=== PATIENT | female | born 1935 | race Caucasian/White ===

== ENCOUNTER → 2022-01-06 15:24 | Outpatient (CLI) | payer MEDICARE, SELFPAY ==
--- NOTE | ~2022-01-06 | MR_ITS ---
EXAMINATION: MR lumbar spine wo con DATE: 01/06/2022 16:45 INDICATION: Lumbar radiculopathy. Low back pain. TECHNIQUE: Magnetic resonance imaging (MRI) of the lumbar spine was performed without intravenous con trast. Sequences included sagittal T2-weighted FSE, sagittal T2-weighted FS FSE, sagittal T1-weighted FSE, and axial T2-weighted FSE. COMPARISON: None FINDINGS: There is 4 degrees dextrocurvature of lumbar spine. There is 3 mm retrolisthesis of L1 on L 2 and 5 mm retrolisthesis of L2 on L3. There is 6 mm anterolisthesis of L5 on S1. There is a chronic burst fracture of T12 with 2/5 loss of height, retropulsion of bone 3 mm into central spinal canal, a nd changes of vertebroplasty. There is a chronic burst fracture of L1 with 4/5 loss of height, retrop ulsion of bone 4 mm into central spinal canal, and focal kyphosis. There is a chronic burst fracture of L2 with 3/5 loss of height and retropulsion of bone 3 mm into central spinal canal. There is mildl y decreased disc height at T12-L1, L1-L2, and L2-L3, moderately decreased disc height at L3-L4 and L4 -L5, and severely decreased disc height at L5-S1 with endplate remodeling. The distal spinal cord sig nal intensity is normal. The conus medullaris is at L1. The following disc levels are specifically di scussed: T12-L1: The disc is bulging. There is severe bilateral facet joint osteoarthritis. There is mild left neural foraminal stenosis. There is mild central canal stenosis. L1-L2: The disc is bulging. There is severe bilateral facet joint osteoarthritis. There is moderate r ight and mild left neural foraminal stenosis. There is mild central canal stenosis. L2-L3: The disc is bulging and has an annular fissure. There is severe bilateral facet joint osteoart hritis. There is moderate bilateral neural foraminal stenosis. There is mild central canal stenosis. L3-L4: The disc is bulging. There is severe bilateral facet joint osteoarthritis. There is mild right and moderate left neural foraminal stenosis. There is moderate central canal stenosis. L4-L5: The disc is bulging. There is severe bilateral facet joint osteoarthritis. There is moderate b ilateral neural foraminal stenosis. There is mild central canal stenosis. L5-S1: The disc is bulging and has an annular fissure. There is severe bilateral facet joint osteoart hritis. There is moderate bilateral neural foraminal stenosis. There is mild central canal stenosis. IMPRESSION: 1. Severe lumbar spondylosis. Reviewed, dictated and finalized at location A.
== END ==
PROVIDERS: PCP Physician Assistant; Visit Provider Nurse Practitioner Family
DX: M47.25 Other spondylosis with radiculopathy, thoracolumbar region (principal); M48.05 Spinal stenosis, thoracolumbar region; M47.27 Other spondylosis with radiculopathy, lumbosacral region; M48.07 Spinal stenosis, lumbosacral region
CPT/HCPCS: 72148

== ENCOUNTER 2022-03-03 13:34 | Inpatient (IN) | payer MEDICARE, SELFPAY ==
[2022-03-03] VITALS (8 sets, daily range): BP systolic 80–121; BP diastolic 50–73; PULSE 55–65; RESP 15–21; TEMP 36.4–36.6; O2SAT 98–100; BMI 32.2
--- NOTE | ~2022-03-03 | CT_ITS ---
EXAMINATION: CT diagnostic chest w con DATE: 03/03/2022 15:18 INDICATION: Worsening pneumonia. Right rib pain. TECHNIQUE: Computed tomography (CT) of the chest was performed with 75 cc Omnipaque 350 intravenous c ontrast. The dose-length product was 266.21 mGy-cm. Automated exposure control and iterative reconstr uction technique were employed. COMPARISON: No prior studies for comparison. FINDINGS: No large central pulmonary embolism. There is atherosclerosis of the aorta and coronary art eries. Large hiatal hernia. Small right pleural effusion. No thoracic lymphadenopathy. There is emphy sema. There are patchy bilateral groundglass opacities with more focal consolidation in the lower lob es which may represent pneumonia and/or atelectasis. There is debris in the left lower lobe bronchi. Centrally obstructing mass is not excluded. There are compression fractures at the thoracolumbar junc tion, likely chronic, the inferior most fracture contains vertebroplasty changes. Moderate-severe tho racic spondylosis. IMPRESSION: 1. Patchy groundglass opacities bilaterally with more focal consolidation in the lower lobes which ma y represent pneumonia and/or atelectasis. Debris present in the left lower lobe bronchus. Cannot excl ude centrally obstructing mass. 2: Small right pleural effusion. Reviewed, dictated and finalized at location B. SHAPER IMPRESSION: 1. Patchy groundglass opacities bilaterally with more focal consolidation in th e lower lobes which may represent pneumonia and/or atelectasis. Debris present in the left lower lobe bronchus. Cannot exclude centrally obstructing mass. 2: Small right pleural effusion.
--- NOTE | ~2022-03-03 | XR_ITS ---
EXAMINATION: XR ribs RT 2V DATE: 03/04/2022 11:33 INDICATION: Right lower lateral rib pain. Fall. TECHNIQUE: 2 views of the right ribs on 4 radiographs were obtained. COMPARISON: Chest CT 03/03/2022 FINDINGS: There is a small right pleural effusion. There is mild atelectasis at right lung base. Ther e are lucencies in the lungs, consistent with emphysema. There are changes of posterior fusion proced ure in cervical spine. There are changes of vertebroplasty at T12. Surgical clips in the right upper quadrant are likely from cholecystectomy. There are multiple old healed anterior right rib fracture d eformities. IMPRESSION: 1. No acute right rib fracture. 2. Stable small right pleural effusion. Reviewed, dictated and finalized at location A. RAL SERVICE MANAGER
--- NOTE | ~2022-03-03 | XR_ITS ---
EXAM: XR shoulder RT 1V DATE: 03/08/2022 16:43 HISTORY: shoulder pain. FELL ON HER R.SHOULDER A WEEK AGO . COMPARISON: X-ray right ribs 03/04/2022, CT chest 03/03/2022. FINDINGS: Exam limited by portable technique, positioning, and the lack of orthogonal views. Osteope mirella. Left lower lung opacities. Small left effusion. There are degenerative changes in the shoulder. Irregularity of the glenoid, which could represent fracture or artifact. Anatomic glenohumeral alignm ent is difficult to ascertain. IMPRESSION: Severely limited examination. No acute osseous injury detected in the prior studies perfo rmed on 03/03 and 03/04. If there has been additional intervening trauma, recommend complete nonporta ble radiographic examination of the shoulder if the patient is able to complete self-examination. Reviewed, dictated and finalized at [facility] K. RIFUGAL SEPARATOR IMPRESSION: Severely limited examination. No acute osseous injury detected in t he prior studies performed on 03/03 and 03/04. If there has been additional int ervening trauma, recommend complete nonportable radiographic examination of the shoulder if the patient is able to complete self-examination.
[2022-03-03 14:30] LABS: Basophils Percent Auto 0.3 % (0.2-1.2); Eosinophils Absolute Auto 0.2 K/mm3 (0-0.3); Eosinophils Percent Auto 1.9 % (0-4.4); Hemoglobin 8.8 g/dL (12.0-15.0); Immature Granulocyte Absolute 0.05 K/mm3 (0.00-0.031); Immature Granulocyte Percent A 0.5 % (0-0.5); Lymphocytes Absolute Auto 1.51 K/mm3 (0.9-3.2); Lymphocytes Percent Auto 15.4 % (18.3-44.2); Mean Corpuscular HGB Conc 28.4 g/dl (32-36); Mean Corpuscular Hemoglobin 25.2 pg (26-34); Mean Corpuscular Volume 88.8 fl (80-100); Mean Platelet Volume 9.5 fl (7.4-10.4); Monocytes Absolute Auto 0.8 K/mm3 (0.1-0.6); Monocytes Percent Auto 8.4 % (2.6-8.5); Neutrophils Absolute Auto 7.2 K/mm3 (1.3-6.7); Neutrophils Percent Auto 73.5 % (45.5-73.1); Platelet Count Result 175 k/mm3 (150-375); Red Blood Count 3.49 M/mm3 (4.2-5.4); Red Cell Distribution Width 14.6 % (11.5-14.5); White Blood Count 9.8 K/mm3 (4.5-10.0)
[2022-03-03 14:45] LABS: Prothrombin Time 13.2 Seconds (11.1-14.7)
[2022-03-03 14:46] LABS: Partial Thromboplastin Time 29.7 SECONDS (22.3-36.8)
[2022-03-03 14:58] LABS: Alanine Aminotransferase 18 U/L (6-35); Albumin Level 3.3 g/dL (3.5-5.1); Alkaline Phosphatase 82 U/L (38-126); Aspartate Amino Transferase 30 U/L (14-36); Bilirubin,Total 0.4 mg/dL (0.2-1.3); Blood Urea Nitrogen 25 mg/dL (7-17); Calcium 8.2 mg/dL (8.4-10.2); Carbon Dioxide > 40 mmol/L (22-30); Chloride 89 mmol/L (98-107); Estimated Glomerular Filt Rate > 60; Glucose 95 mg/dL (65-110); Potassium 3.1 mmol/L (3.4-5.0); Sodium 140 mmol/L (137-145)
[2022-03-03 14:59] LABS: Hypochromasia 1+ (NORMAL); Platelet Estimate Adequate (Adequate); Schistocytes None Seen (NORMAL)
[2022-03-03 15:04] LABS: Influenza A QL RT-PCR Negative (Negative); Influenza B QL RT-PCR Negative (Negative); SARS-CoV-2 RNA PCR Negative
[2022-03-03 15:06] LABS: NT Pro B Type Natriuretic Pept 891 pg/mL (5-100)
--- NOTE | 2022-03-03 15:47 | ED.SOB ---
HPI - SOB/Dyspnea General Chief Complaint: Shortness of Breath/Dyspnea Stated Complaint: dyspnea, recent pna Time Seen by Provider: 03/03/22 14:04 History of Present Illness HPI Narrative: 87-year-old female presenting to the emergency department for evaluation of worsening shortness of breath and right-sided rib pain. Patient reports she is normally on 2 L of oxygen at baseline but does bump up to 4 L with ambulation. Patient did have a recent pneumonia and did complete her antibiotics. Patient reports that Thursday she had a ground-level fall and injured her right ribs. Patient presents to the emergency department evaluation of pain in the right ribs and of worsening cough and shortness of breath. Patient has history of COPD and pneumonia. Related Data Home Medications Medication Instructions Recorded Confirmed amitriptyline 25 mg tablet 25 mg PO QHS 10/23/20 03/03/22 citalopram 20 mg tablet 20 mg PO DAILY 10/23/20 03/03/22 furosemide 20 mg tablet 20 mg PO QAM 10/23/20 03/03/22 oxycodone-acetaminophen 5 mg-325 1 tablet PO Q6H PRN Pain 10/23/20 03/03/22 mg tablet pantoprazole 40 mg tablet,delayed 40 mg PO QAM 10/23/20 03/03/22 release propranolol 20 mg/5 mL (4 mg/mL) 20 mg PO BID 10/23/20 03/03/22 oral solution pregabalin 100 mg capsule (Lyrica) 100 mg PO BID 03/03/22 03/03/22 Allergies Allergy/AdvReac Type Severity Reaction Status Date / Time chlorpromazine Allergy Unknown Unknown Verified 03/03/22 14:03 [From Thorazine] diphenhydramine Allergy Unknown Unknown Verified 03/03/22 14:03 [From Benadryl] rofecoxib [From Vioxx] Allergy Unknown Unknown Verified 03/03/22 14:03 Review of Systems Review of Systems: CONSTITUTIONAL: Denies fever, chills, or sweats. EYES: Denies visual changes, redness, or discharge. ENT: Denies rhinorrhea, congestion, sore throat, or otalgia. CARDIOVASCULAR: Denies chest pain, palpitations, or edema. RESPIRATORY: Cough and congestion GASTROINTESTINAL: Denies abdominal pain, nausea, vomiting, or diarrhea. GENITOURINARY: Denies dysuria or hematuria. SKIN: Denies rash or itching. MUSCULOSKELETAL: Right-sided rib pain NEUROLOGIC: Denies headache, numbness, or weakness. [facility]LY [facility] Past Medical History Medical History (Updated 03/03/22 @ 22:05 by Flaquita Haider NP) Acute exacerbation of chronic obstructive airways disease Chronic GERD COPD (chronic obstructive pulmonary disease) Depression with anxiety Hiatal hernia Surgical History Surgical History (Updated 03/03/22 @ 18:38 by Flaquita Haider NP) H/O bladder repair surgery H/O breast surgery H/O colonoscopy H/O esophagogastroduodenoscopy H/O foot surgery H/O hernia repair H/O Spinal surgery H/O wrist surgery H/O: hysterectomy Hx of cataract extraction Hx of cholecystectomy S/P cervical spinal fusion S/P tonsillectomy Family History Family History Father Bladder cancer Mother Hypertension Depression Sibling Asthma Hypertension Depression Grandparent Hypertension Heart disease Cerebrovascular accident Grandparent Alcoholism Lung cancer Social History Social History (Updated 03/03/22 @ 21:54 by Flaquita Haider NP) Social History: The patient is and has 3 children. 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 She tells me she was a former smoker. She chronically wears oxygen at home. She does not have a durable power finance attorney for healthcare. She has an alcoholic beverage approximately 4 times per week. Code status full code Smoking status: Former smoker Alcohol intake: current Substance use: never Substance use type: does not use Exam Narrative: APPEARANCE: Well appearing, no pain, no distress, well-nourished. HEAD: normocephalic, atraumatic. EYES: PERRLA/EOMI, conjunctivae clear. NOSE: Normal no drainage THROAT: Pharynx clear, no exudate. NECK: Supple. No adenopathy, no masses. RESPI
--- NOTE | 2022-03-03 16:00 | PCRCNOTE ---
PT. REFUSED ABG; DR. HERRMANN NOTIFIED.
[2022-03-03] MEDS: SODIUM CHLORIDE 0.9% IV 1,000 ML 125 ML (17:27)
--- NOTE | 2022-03-03 18:29 | PM.IMHP ---
H&P: HPI History of Present Illness Date/Time: 03/03/22 18:29 Chief Complaint: Shortness of breath Narrative: This is an 87-year-old female patient who lives at home by herself. The patient stated she recently was treated for pneumonia and still continues to have a cough. She wears oxygen at 4 L per nasal cannula as she has COPD. The patient has a cough without a fever. She is complaining of right-sided rib pain every time she coughs. The patient had already completed her antibiotics for her pneumonia. The patient came to the emergency room for worsening cough and the pain to the right rib area. The patient typically goes to [facility] but decided she no longer wants to go there. She had a chest CT today that shows patchy ground-glass opacities bilaterally with more focal consolidation in the lower lobes which may represent pneumonia and/or atelectasis. Debris present in the left lower lobe bronchus. Cannot exclude centrally obstructing mass. Small right pleural effusion. Her H&H is 8.8 and 31.0. The patient was negative for influenza A/B and COVID. The patient was started on cefepime and vanco for failed outpatient pneumonia treatment the patient is being admitted to observation status on the date of service of 03/03/2022.. Review of Systems Review of Systems: See HPI All systems reviewed & are unremarkable except as noted in HPI and below Constitutional: Constitutional: Reports as per HPI and Reports no additional constitutional complaints Eyes: Eyes: Reports as per HPI and Reports no additional eye complaints ENT: Reports system reviewed and no additional complaints, except as documented and Reports Normal hearing present Cardiovascular: Cardiovascular: Reports no additional cardiovascular complaints Respiratory: Respiratory: Reports no additional respiratory complaints and Reports no additional respiratory complaints Gastrointestinal: Gastrointestinal: Reports as per HPI and Reports no additional gastrointestinal complaints Musculoskeletal: Musculoskeletal: Reports no additional musculoskeletal complaints Integumentary/Breasts: Skin/Breast: Reports system reviewed and no additional complaints, except as docu and Reports as per HPI Neurologic: Reports system reviewed and no additional complaints, except as documented, Reports as per HPI and Reports Normal hearing present Psychiatric: Psychiatric: Reports no additional psychiatric complaints and Reports as per HPI Endocrine: Endocrine: Reports no additional endocrine complaints Hematologic/Lymphatic: Hematologic/Lymphatic: Reports no additional hematologic/lymphatic complaints Allergic/Immunologic: Allergic/Immunologic: Reports no additional allergic/immunologic complaints PMFSH Past Medical History Medical History (Updated 03/03/22 @ 22:05 by Flaquita Haider NP) Acute exacerbation of chronic obstructive airways disease Chronic GERD COPD (chronic obstructive pulmonary disease) Depression with anxiety Hiatal hernia Surgical History Surgical History (Updated 03/03/22 @ 18:38 by Flaquita Haider NP) H/O bladder repair surgery H/O breast surgery H/O colonoscopy H/O esophagogastroduodenoscopy H/O foot surgery H/O hernia repair H/O Spinal surgery H/O wrist surgery H/O: hysterectomy Hx of cataract extraction Hx of cholecystectomy S/P cervical spinal fusion S/P tonsillectomy Family History Family History Father Bladder cancer Mother Hypertension Depression Sibling Asthma Hypertension Depression Grandparent Hypertension Heart disease Cerebrovascular accident Grandparent Alcoholism Lung cancer Social History Social History (Updated 03/03/22 @ 21:54 by Flaquita Haider NP) Social History: The patient is and has 3 children. 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 She tells me she was a former smoker. She chronically wears oxygen at home
--- NOTE | 2022-03-03 20:06 | ADMGEN ---
This patient, Jazmin Bullard, was admitted to [facility] Surg Room 321-01. Patient/family oriented to hospital policies and general routines including ID bracelet, bed and alarms, visiting hours, pain management, procedures, bathroom and other care routines, personal items, smoking policy, room service/diet, and visiting hours. Information on how to activate the Rapid Response Team has been discussed. Patient/Family are encouraged to report perceived risks to care and to ask questions if they do not understand what they are told or what they should do.
[2022-03-03 21:00] LABS: Anion Gap 11 mmol/L (8-16); Blood Urea Nitrogen 23 mg/dL (7-17); Calcium 8.4 mg/dL (8.4-10.2); Carbon Dioxide 34 mmol/L (22-30); Chloride 94 mmol/L (98-107); Estimated Glomerular Filt Rate > 60; Glucose 95 mg/dL (65-110); Potassium 3.5 mmol/L (3.4-5.0); Sodium 139 mmol/L (137-145)
[2022-03-03] MEDS: MORPHINE SULFATE (*CRX) 4 MG/ML INJ 2 MG IV PUSH (23:47)
[2022-03-04] VITALS (9 sets, daily range): BP systolic 112–155; BP diastolic 59–136; PULSE 63–74; RESP 18–22; TEMP 36.1–36.7; O2SAT 97–100
[2022-03-04] MEDS: PANTOPRAZOLE SODIUM IV 40 MG VIAL IV PUSH (00:09)
[2022-03-04] MEDS: IPRATROPIUM BR 0.02% INH SOLN 0.5 MG/2.5 ML VIAL INHALATION ×3 (01:46→21:06)
[2022-03-04] MEDS: ALBUTEROL SULFATE NEB 2.5 MG/3 ML INH INHALATION ×3 (01:47→21:06)
[2022-03-04 06:22] LABS: Basophils Percent Auto 0.3 % (0.2-1.2); Eosinophils Absolute Auto 0.2 K/mm3 (0-0.3); Eosinophils Percent Auto 2.9 % (0-4.4); Hematocrit 28.5 % (37.0-47.0); Hemoglobin 8.4 g/dL (12.0-15.0); Immature Granulocyte Absolute 0.05 K/mm3 (0.00-0.031); Immature Granulocyte Percent A 0.6 % (0-0.5); Lymphocytes Percent Auto 16.4 % (18.3-44.2); Mean Corpuscular HGB Conc 29.5 g/dl (32-36); Mean Corpuscular Hemoglobin 25.1 pg (26-34); Mean Corpuscular Volume 85.1 fl (80-100); Mean Platelet Volume 9.9 fl (7.4-10.4); Monocytes Absolute Auto 0.7 K/mm3 (0.1-0.6); Monocytes Percent Auto 8.6 % (2.6-8.5); Neutrophils Absolute Auto 5.6 K/mm3 (1.3-6.7); Neutrophils Percent Auto 71.2 % (45.5-73.1); Platelet Count Result 164 k/mm3 (150-375); Red Blood Count 3.35 M/mm3 (4.2-5.4); Red Cell Distribution Width 14.7 % (11.5-14.5); White Blood Count 7.9 K/mm3 (4.5-10.0)
[2022-03-04 06:35] LABS: Lactic Acid Reflex 0.9 mmol/L (0.7-2.0)
[2022-03-04 06:59] LABS: Platelet Estimate Adequate (Adequate)
[2022-03-04 07:00] LABS: Alanine Aminotransferase 18 U/L (6-35); Albumin Level 3.1 g/dL (3.5-5.1); Alkaline Phosphatase 90 U/L (38-126); Anisocytosis 1+ (NORMAL); Aspartate Amino Transferase 26 U/L (14-36); Bilirubin,Total 0.5 mg/dL (0.2-1.3); Blood Urea Nitrogen 17 mg/dL (7-17); Calcium 8.1 mg/dL (8.4-10.2); Carbon Dioxide > 40 mmol/L (22-30); Chloride 93 mmol/L (98-107); Estimated Glomerular Filt Rate > 60; Glucose 109 mg/dL (65-110); Hypochromasia 3+ (NORMAL); Magnesium 2.1 mg/dL (1.6-2.3); Potassium 3.1 mmol/L (3.4-5.0); Schistocytes None Seen (NORMAL); Sodium 137 mmol/L (137-145)
[2022-03-04 08:22] LABS: Iron 20 ug/dL (37-170)
[2022-03-04 08:31] LABS: Percent Iron Saturation 6 % (20-50)
[2022-03-04] MEDS: MEMANTINE 5 MG TABLET PO ×2 (08:54→17:14)
[2022-03-04] MEDS: CLOPIDOGREL BISULFATE 75 MG TABLET PO (08:54)
[2022-03-04] MEDS: PANTOPRAZOLE 40 MG TABLET PO (08:54)
[2022-03-04] MEDS: ENOXAPARIN 40 MG/0.4 ML SYRINGE SUB-Q (08:54)
[2022-03-04] MEDS: POTASSIUM CHLORIDE 20 MEQ PACKET (FOR LIQUID) 40 MEQ PO (08:54)
[2022-03-04] MEDS: PREGABALIN (*CRX) 50 MG CAPSULE 100 MG PO ×2 (08:55→17:14)
[2022-03-04] MEDS: PROPRANOLOL HCL 20 MG TABLET PO ×2 (08:55→17:14)
[2022-03-04] MEDS: ATORVASTATIN 40 MG TABLET 80 MG PO (08:55)
[2022-03-04] MEDS: oxyCODONE/ACETAMINOPHEN (*CRX) 5-325 MG TABLET 1 TABLET PO ×3 (08:55→21:32)
[2022-03-04] MEDS: CITALOPRAM HYDROBROMIDE 20 MG TABLET PO (08:55)
[2022-03-04] MEDS: FUROSEMIDE INJ 40 MG/4 ML VIAL IV PUSH (08:55)
--- NOTE | 2022-03-04 10:45 | PM.IMPN ---
Progress Note: A&P Assessment and Plan (1) Pneumonia: Code(s): J18.9 - Pneumonia, unspecified organism Status: Acute Assessment and Plan: -the patient failed outpatient treatment for pneumonia. -the patient is chronically on 4 L per nasal cannula. -continue with nebulizer treatments. - The patient was started on cefepime and vancomycin. -tailor antibiotics to blood and sputum cultures. -she does not known what antibiotics the patient was on outpatient shannon, but likely levaquin given it was taken only once daily. Check swallowing as she reports some dysphagia. (2) COPD (chronic obstructive pulmonary disease): Qualifiers: COPD type: unspecified COPD Qualified Code(s): J44.9 - Chronic obstructive pulmonary disease, unspecified Code(s): J44.9 - Chronic obstructive pulmonary disease, unspecified Status: Chronic Assessment and Plan: -continue with current oxygen -continue with nebulizer treatments. (3) Depression with anxiety: Code(s): F41.8 - Other specified anxiety disorders Status: Chronic Assessment and Plan: -continue with amitriptyline and Celexa went home medications are verified. (4) Chronic GERD: Code(s): K21.9 - Gastro-esophageal reflux disease without esophagitis Status: Chronic Assessment and Plan: -IV Protonix (5) Pleural effusion: Code(s): J90 - Pleural effusion, not elsewhere classified Status: Acute Assessment and Plan: IV Lasix and hold p.o. Lasix (6) Constipation: Code(s): K59.00 - Constipation, unspecified Status: Acute Assessment and Plan: bisacodyl suppository x1, then start bowel regimen. Time Spent With Patient Time with patient: 15 - 25 minutes Subjective Date/time seen: 03/04/22 10:45 She has right rib pain that is worse with movement and coughing. She denies hemoptysis. Her sputum has been green-blue and she attributes the blue tinge to drinking Dr. Pepper. She has not had a BM in 7 days. She was discharged from [facility] with three days of antibiotic that was once daily. Review of Systems Review of Systems: All systems reviewed & are unremarkable except as noted in HPI and below Objective Data Vital Signs Vital Signs: Vital Signs - 24 hr 03/03/22 13:32 03/03/22 13:51 03/03/22 14:14 Temperature 97.6 F Pulse Rate 55 L Respiratory Rate 17 Blood Pressure 80/63 L 97/68 L Pulse Oximetry 100 98 Oxygen Delivery Nasal Cannula Nasal Cannula Oxygen Flow Rate 2 2 03/03/22 14:16 03/03/22 17:37 03/03/22 19:55 Temperature 97.9 F Pulse Rate 56 L 63 65 Respiratory Rate 21 H 15 20 Blood Pressure 112/73 84/50 L 121/66 Pulse Oximetry 100 100 100 Oxygen Delivery Oxygen Flow Rate 03/03/22 21:40 03/04/22 01:51 03/04/22 02:01 Temperature 97.9 F Pulse Rate 65 63 64 Respiratory Rate 20 18 18 Blood Pressure 121/66 Pulse Oximetry 100 Oxygen Delivery Oxygen Flow Rate 03/03/22 20:30 03/04/22 06:00 03/04/22 08:55 Temperature 98.0 F Pulse Rate 64 66 66 Respiratory Rate 18 22 H Blood Pressure 112/59 L Pulse Oximetry 100 97 Oxygen Delivery Nasal Cannula Oxygen Flow Rate 3 03/04/22 08:00 Temperature Pulse Rate Respiratory Rate Blood Pressure Pulse Oximetry 97 Oxygen Delivery Nasal Cannula Oxygen Flow Rate 3 Intake/Output Intake/Output: Intake & Output 03/01/22 03/02/22 03/03/22 03/04/22 23:59 23:59 23:59 23:59 Intake Total 50 740 Balance 50 740 Meds/Results Medications: Active Medications Generic Name Dose Route Start Last Admin Trade Name Freq PRN Reason Stop Dose Admin Albuterol 2.5 mg 03/04/22 02:00 03/04/22 09:31 Albuterol Sulfate Neb 2.5 Mg/3 Ml Inh INHALATION Not Given Q6HRT MASTER Amitriptyline HCl 25 mg 03/04/22 21:00 Amitriptyline Hcl 25 Mg Tablet PO QHS MASTER Ascorbic Acid 500 mg 03/05/22 09:00 Ascorbic Acid 500 Mg Tablet PO
[2022-03-04] MEDS: LIDOCAINE 5% PATCH 1 PATCH TRANSDERM (11:48)
[2022-03-04] MEDS: BISACODYL 10 MG SUPPOSITORY RECTAL (12:30)
--- NOTE | 2022-03-04 16:36 | PCSTNOTE ---
Please refer to the Bedside Swallow Evaluation in the EMR. Please note, silent aspiration cannot be ruled out at bedside.
[2022-03-04] MEDS: SENNA/DOCUSATE SODIUM TABLET 1 TAB PO (21:33)
[2022-03-04] MEDS: AMITRIPTYLINE HCL 25 MG TABLET PO (21:33)
[2022-03-05] VITALS (18 sets, daily range): BP systolic 84–144; BP diastolic 53–92; PULSE 65–99; RESP 18–20; TEMP 36.4–37.2; O2SAT 93–100
[2022-03-05] MEDS: IPRATROPIUM BR 0.02% INH SOLN 0.5 MG/2.5 ML VIAL INHALATION ×4 (01:48→20:18)
[2022-03-05] MEDS: ALBUTEROL SULFATE NEB 2.5 MG/3 ML INH INHALATION ×4 (01:48→20:18)
[2022-03-05] MEDS: oxyCODONE/ACETAMINOPHEN (*CRX) 5-325 MG TABLET 1 TABLET PO (06:57)
[2022-03-05 07:24] LABS: Basophils Percent Auto 0.4 % (0.2-1.2); Eosinophils Absolute Auto 0.3 K/mm3 (0-0.3); Eosinophils Percent Auto 3.8 % (0-4.4); Hematocrit 31.4 % (37.0-47.0); Immature Granulocyte Absolute 0.04 K/mm3 (0.00-0.031); Immature Granulocyte Percent A 0.5 % (0-0.5); Lymphocytes Absolute Auto 1.13 K/mm3 (0.9-3.2); Lymphocytes Percent Auto 14.9 % (18.3-44.2); Mean Corpuscular HGB Conc 28.7 g/dl (32-36); Mean Corpuscular Hemoglobin 25.2 pg (26-34); Mean Platelet Volume 10.2 fl (7.4-10.4); Monocytes Absolute Auto 0.6 K/mm3 (0.1-0.6); Monocytes Percent Auto 8.1 % (2.6-8.5); Neutrophils Absolute Auto 5.5 K/mm3 (1.3-6.7); Neutrophils Percent Auto 72.3 % (45.5-73.1); Platelet Count Result 191 k/mm3 (150-375); Red Blood Count 3.57 M/mm3 (4.2-5.4); Red Cell Distribution Width 14.6 % (11.5-14.5); White Blood Count 7.6 K/mm3 (4.5-10.0)
[2022-03-05 07:29] LABS: Blood Urea Nitrogen 17 mg/dL (7-17); Calcium 8.2 mg/dL (8.4-10.2); Carbon Dioxide > 40 mmol/L (22-30); Chloride 91 mmol/L (98-107); Estimated Glomerular Filt Rate > 60; Glucose 107 mg/dL (65-110); Potassium 3.3 mmol/L (3.4-5.0); Sodium 138 mmol/L (137-145)
[2022-03-05] MEDS: CLOPIDOGREL BISULFATE 75 MG TABLET PO (09:45)
[2022-03-05] MEDS: ENOXAPARIN 40 MG/0.4 ML SYRINGE SUB-Q (09:46)
[2022-03-05] MEDS: CITALOPRAM HYDROBROMIDE 20 MG TABLET PO (09:46)
[2022-03-05] MEDS: ATORVASTATIN 40 MG TABLET 80 MG PO (09:47)
[2022-03-05] MEDS: MEMANTINE 5 MG TABLET PO ×2 (09:47→17:15)
[2022-03-05] MEDS: PREGABALIN (*CRX) 50 MG CAPSULE 100 MG PO ×2 (09:47→19:38)
[2022-03-05] MEDS: FUROSEMIDE INJ 40 MG/4 ML VIAL IV PUSH (09:47)
[2022-03-05] MEDS: ASCORBIC ACID 500 MG TABLET PO (09:47)
[2022-03-05] MEDS: FERROUS SULFATE DRIED 142 MG TABCR PO (09:47)
[2022-03-05] MEDS: PANTOPRAZOLE 40 MG TABLET PO (09:48)
--- NOTE | 2022-03-05 09:53 | PCPTNOTE ---
Attempted PT evaluation, pt refused wishing to have pain medication prior to therapy. RN in room. Will follow
[2022-03-05] MEDS: MORPHINE SULFATE (*CRX) 4 MG/ML INJ 2 MG IV PUSH (11:57)
[2022-03-05] MEDS: SODIUM CHLORIDE 0.9% IV 500 ML 999 ML IV CONT ×2 (15:02→16:25)
--- NOTE | 2022-03-05 16:11 | PM.IMPN ---
Progress Note: A&P Assessment and Plan (1) Pneumonia: Code(s): J18.9 - Pneumonia, unspecified organism Status: Acute Assessment and Plan: -the patient failed outpatient treatment for pneumonia. -the patient is chronically on 4 L per nasal cannula. -continue with nebulizer treatments. - The patient was started on cefepime and vancomycin. -blood culture no growth to date; sputum culture pending -she does not known what antibiotics the patient was on outpatient shannon, but likely Levaquin given it was taken only once daily. - speech has evaluated with patient (2) COPD (chronic obstructive pulmonary disease): Qualifiers: COPD type: unspecified COPD Qualified Code(s): J44.9 - Chronic obstructive pulmonary disease, unspecified Code(s): J44.9 - Chronic obstructive pulmonary disease, unspecified Status: Chronic Assessment and Plan: -continue with current oxygen -continue with nebulizer treatments. (3) Depression with anxiety: Code(s): F41.8 - Other specified anxiety disorders Status: Chronic Assessment and Plan: -continue with amitriptyline and Celexa went home medications are verified. (4) Chronic GERD: Code(s): K21.9 - Gastro-esophageal reflux disease without esophagitis Status: Chronic Assessment and Plan: -IV Protonix (5) Pleural effusion: Code(s): J90 - Pleural effusion, not elsewhere classified Status: Acute Assessment and Plan: discontinue IV Lasix (6) Constipation: Code(s): K59.00 - Constipation, unspecified Status: Acute Assessment and Plan: bisacodyl suppository x1, then start bowel regimen. (7) Hypotension: Code(s): I95.9 - Hypotension, unspecified Status: Acute Assessment and Plan: blood pressure of 88/66 patient given 500 mL of normal saline and Lasix discontinued. Repeat blood pressure was 90 over 62. Repeat of 50 mL of normal saline. Time Spent With Patient Time with patient: Greater than 35 minutes Subjective Date/time seen: 03/05/22 16:11 Interval history: 87-year-old female with a history of COPD, chronic GERD, and hiatal hernia. Patient presented to the ER on 03/03/2022 due to a fall and cough. Patient states she has side pain associated with the fall but pain is worsened with a cough. Chest x-ray and chest CT revealed bilateral opacities consistent with pneumonia versus atelectasis and small right pleural effusion; no evidence of rib fractures. patient resting comfortably in bed on exam. Patient denies fever, chest pain, nausea, vomiting, diarrhea, lower extremity swelling, and sputum production today. patient states that she has shortness of breath, a cough, and constipation. Review of Systems Review of Systems: All systems reviewed & are unremarkable except as noted in HPI and below Exam Narrative: GENERAL: Comfortable, no acute distress HENMT: moist mucous membranes EYES: EOM intact b/l NECK: no lymphadenopathy RESPIRATORY: distant breath sounds, raspy but cleared up once patient coughed CARDIO: RRR GI: soft, nontender, bowel sounds present SKIN: no rashes, bruising on the right lateral back with point tenderness EXTREMITIES: no edema, redness or tenderness Objective Data Vital Signs Vital Signs: Vital Signs - 24 hr 03/04/22 21:10 03/04/22 21:10 03/04/22 21:35 Temperature 98.0 F Pulse Rate 64 64 68 Respiratory Rate 18 18 20 Blood Pressure 122/81 Pulse Oximetry 100 99 Oxygen Delivery Nasal Cannula Oxygen Flow Rate 3 03/04/22 20:30 03/05/22 01:49 03/05/22 02:08 Temperature Pulse Rate 68 66 68 Respiratory Rate 20 20 20 Blood Pressure Pulse Oximetry 99 Oxygen Delivery Nasal Cannula Oxygen Flow Rate 3 03/05/22 06:00 03/05/22 08:18 03/05/22 08:21 Temperature 97.9 F Pulse Rate 71 69 69 Respiratory Rate 20 20 20 Blood Pressure 144/85 H Pulse Oximetry 95 93 Oxygen Delivery Carlos
[2022-03-05] MEDS: SENNA/DOCUSATE SODIUM TABLET 1 TAB PO (21:40)
[2022-03-05] MEDS: AMITRIPTYLINE HCL 25 MG TABLET PO (21:42)
[2022-03-05] MEDS: oxyCODONE HCL (*CRX) 2.5 MG TAB IR PO (23:18)
[2022-03-06] VITALS (11 sets, daily range): BP systolic 85–123; BP diastolic 66–78; PULSE 78–115; RESP 16–22; TEMP 36.2–36.6; O2SAT 91–96
[2022-03-06] MEDS: IPRATROPIUM BR 0.02% INH SOLN 0.5 MG/2.5 ML VIAL INHALATION ×4 (02:47→20:11)
[2022-03-06] MEDS: ALBUTEROL SULFATE NEB 2.5 MG/3 ML INH INHALATION ×4 (02:47→20:11)
[2022-03-06 06:04] LABS: Anion Gap 7 mmol/L (8-16); Blood Urea Nitrogen 15 mg/dL (7-17); Carbon Dioxide 36 mmol/L (22-30); Chloride 93 mmol/L (98-107); Estimated Glomerular Filt Rate 53; Glucose 110 mg/dL (65-110); Potassium 3.1 mmol/L (3.4-5.0); Sodium 136 mmol/L (137-145)
[2022-03-06 06:05] LABS: Basophils Percent Auto 0.3 % (0.2-1.2); Eosinophils Absolute Auto 0.2 K/mm3 (0-0.3); Eosinophils Percent Auto 3.5 % (0-4.4); Hematocrit 29.2 % (37.0-47.0); Hemoglobin 8.6 g/dL (12.0-15.0); Immature Granulocyte Absolute 0.03 K/mm3 (0.00-0.031); Immature Granulocyte Percent A 0.4 % (0-0.5); Lymphocytes Absolute Auto 1.14 K/mm3 (0.9-3.2); Lymphocytes Percent Auto 16.7 % (18.3-44.2); Mean Corpuscular HGB Conc 29.5 g/dl (32-36); Mean Corpuscular Hemoglobin 25.2 pg (26-34); Mean Corpuscular Volume 85.6 fl (80-100); Mean Platelet Volume 9.9 fl (7.4-10.4); Monocytes Absolute Auto 0.6 K/mm3 (0.1-0.6); Monocytes Percent Auto 9.1 % (2.6-8.5); Neutrophils Absolute Auto 4.8 K/mm3 (1.3-6.7); Platelet Count Result 181 k/mm3 (150-375); Red Blood Count 3.41 M/mm3 (4.2-5.4); Red Cell Distribution Width 14.8 % (11.5-14.5); White Blood Count 6.8 K/mm3 (4.5-10.0)
[2022-03-06] MEDS: PREGABALIN (*CRX) 50 MG CAPSULE 100 MG PO ×2 (08:07→17:23)
[2022-03-06] MEDS: FERROUS SULFATE DRIED 142 MG TABCR PO (08:08)
[2022-03-06] MEDS: CITALOPRAM HYDROBROMIDE 20 MG TABLET PO (08:08)
[2022-03-06] MEDS: POTASSIUM CHLORIDE 20 MEQ PACKET (FOR LIQUID) 40 MEQ PO (08:08)
[2022-03-06] MEDS: ASCORBIC ACID 500 MG TABLET PO (08:08)
[2022-03-06] MEDS: PANTOPRAZOLE 40 MG TABLET PO (08:08)
[2022-03-06] MEDS: ATORVASTATIN 40 MG TABLET 80 MG PO (08:08)
[2022-03-06] MEDS: polyethylene glycoL 3350 17 GM POWD.PACK PO (08:08)
[2022-03-06] MEDS: ENOXAPARIN 40 MG/0.4 ML SYRINGE SUB-Q (08:08)
[2022-03-06] MEDS: MEMANTINE 5 MG TABLET PO ×2 (08:08→17:23)
[2022-03-06] MEDS: CLOPIDOGREL BISULFATE 75 MG TABLET PO (08:09)
[2022-03-06] MEDS: LIDOCAINE 5% PATCH 1 PATCH TRANSDERM (08:09)
[2022-03-06] MEDS: ACETAMINOPHEN 325 MG TABLET 650 MG PO ×2 (08:20→15:18)
--- NOTE | 2022-03-06 10:46 | PM.IMPN ---
Progress Note: A&P Assessment and Plan (1) Pneumonia: Code(s): J18.9 - Pneumonia, unspecified organism Status: Acute Assessment and Plan: -the patient failed outpatient treatment for pneumonia. -the patient is chronically on 4 L per nasal cannula. -continue with nebulizer treatments. -The patient was started on cefepime and vancomycin. -blood culture no growth to date; sputum culture pending -she does not known what antibiotics the patient was on outpatient shannon, but likely Levaquin given it was taken only once daily. -speech has evaluated with patient - shortness of breath improved (2) COPD (chronic obstructive pulmonary disease): Qualifiers: COPD type: unspecified COPD Qualified Code(s): J44.9 - Chronic obstructive pulmonary disease, unspecified Code(s): J44.9 - Chronic obstructive pulmonary disease, unspecified Status: Chronic Assessment and Plan: -continue with current oxygen -continue with nebulizer treatments. (3) Depression with anxiety: Code(s): F41.8 - Other specified anxiety disorders Status: Chronic Assessment and Plan: -continue with amitriptyline and Celexa went home medications are verified. (4) Chronic GERD: Code(s): K21.9 - Gastro-esophageal reflux disease without esophagitis Status: Chronic Assessment and Plan: pantoprazole 40 mg q.a.m. (5) Pleural effusion: Code(s): J90 - Pleural effusion, not elsewhere classified Status: Acute Assessment and Plan: discontinue IV Lasix (6) Constipation: Code(s): K59.00 - Constipation, unspecified Status: Acute Assessment and Plan: bisacodyl suppository given last night prescribed suppository p.r.n. along with MiraLax p.r.n. (7) Hypotension: Code(s): I95.9 - Hypotension, unspecified Status: Acute Assessment and Plan: Blood pressure of 88/66 patient given 500 mL of normal saline and Lasix discontinued. Repeat blood pressure was 90/62. Patient given additional 500 mL of normal saline. Repeat blood pressure was 120/80. Discontinued patient's morphine and Percocet last night due to low blood pressure And patient was given Tylenol 650 mg. This morning patient described that she was having a lot of pain all over her body along with restless legs. I have restarted patient on oxycodone 2.5 mg in addition to the 650 mg Tylenol. discussed the risks with taking opioids such as falls, low blood pressure, and drowsiness. Patient being monitored for fluid overload. She has been doing well. Time Spent With Patient Time with patient: Greater than 35 minutes Subjective Date/time seen: 03/06/22 10:46 Interval history: 87-year-old female with a history of COPD, chronic GERD, and hiatal hernia. Patient presented to the ER on 03/03/2022 due to a fall and cough. Patient states she has side pain associated with the fall but pain is worsened with a cough. Chest x-ray and chest CT revealed bilateral opacities consistent with pneumonia versus atelectasis and small right pleural effusion; no evidence of rib fractures. patient resting comfortably in bed on exam. Patient denies fever, chest pain, nausea, vomiting, diarrhea, lower extremity swelling, and sputum production today. Patient states that she is in a lot of pain, and states that the pain is everywhere. Her shortness of breath has improved although she is still experiencing a nonproductive wet cough. Review of Systems Review of Systems: All systems reviewed & are unremarkable except as noted in HPI and below Exam Narrative: GENERAL: Comfortable, no acute distress HENMT: moist mucous membranes EYES: EOM intact b/l NECK: no lymphadenopathy RESPIRATORY: mild wheezing, coarse breath sounds, lungs are markedly improved once patient coughs CARDIO: RRR GI: soft, nontender, bowel sounds present SKIN: no rashes, bruising on the right lateral back with point tender
[2022-03-06] MEDS: oxyCODONE HCL (*CRX) 2.5 MG TAB IR PO ×3 (11:26→21:47)
[2022-03-06] MEDS: BISACODYL 10 MG SUPPOSITORY RECTAL (17:24)
[2022-03-06 18:17] LABS: Vancomycin Trough 10.7 ug/mL (10.0-20.0)
[2022-03-06] MEDS: AMITRIPTYLINE HCL 25 MG TABLET PO (21:48)
[2022-03-06] MEDS: SENNA/DOCUSATE SODIUM TABLET 1 TAB PO (21:48)
[2022-03-07] VITALS (12 sets, daily range): BP systolic 106–126; BP diastolic 71–76; PULSE 78–100; RESP 14–18; TEMP 36.2–36.4; O2SAT 94–100
[2022-03-07] MEDS: IPRATROPIUM BR 0.02% INH SOLN 0.5 MG/2.5 ML VIAL INHALATION ×4 (02:56→20:18)
[2022-03-07] MEDS: ALBUTEROL SULFATE NEB 2.5 MG/3 ML INH INHALATION ×4 (02:56→20:18)
[2022-03-07] MEDS: oxyCODONE HCL (*CRX) 2.5 MG TAB IR PO ×5 (04:08→20:13)
[2022-03-07] MEDS: ACETAMINOPHEN 325 MG TABLET 650 MG PO ×5 (04:09→20:13)
[2022-03-07 06:03] LABS: Basophils Percent Auto 0.3 % (0.2-1.2); Eosinophils Absolute Auto 0.3 K/mm3 (0-0.3); Eosinophils Percent Auto 4.7 % (0-4.4); Hematocrit 28.2 % (37.0-47.0); Hemoglobin 8.4 g/dL (12.0-15.0); Immature Granulocyte Absolute 0.06 K/mm3 (0.00-0.031); Immature Granulocyte Percent A 0.9 % (0-0.5); Lymphocytes Absolute Auto 1.21 K/mm3 (0.9-3.2); Lymphocytes Percent Auto 17.7 % (18.3-44.2); Mean Corpuscular HGB Conc 29.8 g/dl (32-36); Mean Corpuscular Hemoglobin 25.6 pg (26-34); Mean Platelet Volume 9.9 fl (7.4-10.4); Monocytes Absolute Auto 0.6 K/mm3 (0.1-0.6); Monocytes Percent Auto 9.1 % (2.6-8.5); Neutrophils Absolute Auto 4.6 K/mm3 (1.3-6.7); Neutrophils Percent Auto 67.3 % (45.5-73.1); Platelet Count Result 187 k/mm3 (150-375); Red Blood Count 3.28 M/mm3 (4.2-5.4); Red Cell Distribution Width 14.8 % (11.5-14.5); White Blood Count 6.9 K/mm3 (4.5-10.0)
[2022-03-07 06:07] LABS: Anion Gap 9 mmol/L (8-16); Blood Urea Nitrogen 14 mg/dL (7-17); Calcium 8.3 mg/dL (8.4-10.2); Carbon Dioxide 35 mmol/L (22-30); Chloride 95 mmol/L (98-107); Estimated Glomerular Filt Rate > 60; Glucose 99 mg/dL (65-110); Potassium 3.9 mmol/L (3.4-5.0); Sodium 139 mmol/L (137-145)
[2022-03-07] MEDS: ATORVASTATIN 40 MG TABLET 80 MG PO (09:40)
[2022-03-07] MEDS: MEMANTINE 5 MG TABLET PO ×2 (09:40→16:15)
[2022-03-07] MEDS: FERROUS SULFATE DRIED 142 MG TABCR PO (09:40)
[2022-03-07] MEDS: CITALOPRAM HYDROBROMIDE 20 MG TABLET PO (09:40)
[2022-03-07] MEDS: ENOXAPARIN 40 MG/0.4 ML SYRINGE SUB-Q (09:40)
[2022-03-07] MEDS: PANTOPRAZOLE 40 MG TABLET PO (09:40)
[2022-03-07] MEDS: ASCORBIC ACID 500 MG TABLET PO (09:40)
[2022-03-07] MEDS: CLOPIDOGREL BISULFATE 75 MG TABLET PO (09:40)
[2022-03-07] MEDS: LIDOCAINE 5% PATCH 1 PATCH TRANSDERM (09:41)
[2022-03-07] MEDS: polyethylene glycoL 3350 17 GM POWD.PACK PO ×2 (09:41→16:14)
[2022-03-07] MEDS: PREGABALIN (*CRX) 50 MG CAPSULE 100 MG PO ×2 (09:43→16:12)
--- NOTE | 2022-03-07 11:10 | PM.IMPN ---
Progress Note: A&P Assessment and Plan (1) Pneumonia: Code(s): J18.9 - Pneumonia, unspecified organism Status: Acute Assessment and Plan: -the patient failed outpatient treatment for pneumonia. -the patient is chronically on 2-4 L per nasal cannula. -continue with nebulizer treatments. -continue cefepime and vancomycin. -blood culture no growth to date -sputum culture: TNP -speech has evaluated with patient -shortness of breath improved (2) COPD (chronic obstructive pulmonary disease): Qualifiers: COPD type: unspecified COPD Qualified Code(s): J44.9 - Chronic obstructive pulmonary disease, unspecified Code(s): J44.9 - Chronic obstructive pulmonary disease, unspecified Status: Chronic Assessment and Plan: -continue with current oxygen -continue with nebulizer treatments. (3) Depression with anxiety: Code(s): F41.8 - Other specified anxiety disorders Status: Chronic Assessment and Plan: -continue with amitriptyline and Celexa went home medications are verified. (4) Chronic GERD: Code(s): K21.9 - Gastro-esophageal reflux disease without esophagitis Status: Chronic Assessment and Plan: pantoprazole 40 mg q.a.m. (5) Pleural effusion: Code(s): J90 - Pleural effusion, not elsewhere classified Status: Acute Assessment and Plan: discontinue IV Lasix (6) Constipation: Code(s): K59.00 - Constipation, unspecified Status: Acute Assessment and Plan: Bisacodyl suppository p.r.n. along with MiraLax t.i.d. scheduled (7) Hypotension: Code(s): I95.9 - Hypotension, unspecified Status: Acute Assessment and Plan: blood pressure stable (8) Restless leg syndrome: Code(s): G25.81 - Restless legs syndrome Status: Acute Assessment and Plan: Starting patient's Mirapex. it was not originally on her home med list. Her son brought in the prescription in it has been added to her med list. Time Spent With Patient Time with patient: Greater than 35 minutes Subjective Date/time seen: 03/07/22 11:10 Interval history: 87-year-old female with a history of COPD, chronic GERD, and hiatal hernia. Patient presented to the ER on 03/03/2022 due to a fall and cough. Patient states she has side pain associated with the fall but pain is worsened with a cough. Chest x-ray and chest CT revealed bilateral opacities consistent with pneumonia versus atelectasis and small right pleural effusion; no evidence of rib fractures. patient resting comfortably in bed on exam. Patient sitting in chair when being interviewed. Patient denies fever, chest pain, nausea, vomiting, diarrhea, lower extremity swelling, and sputum production. Patient states that she is in a lot of pain, and states that the pain is everywhere. Her cough and shortness of breath has improved. Review of Systems Review of Systems: All systems reviewed & are unremarkable except as noted in HPI and below Exam Narrative: GENERAL: Comfortable, no acute distress HENMT: moist mucous membranes EYES: EOM intact b/l NECK: no lymphadenopathy RESPIRATORY: crackles in lung bases otherwise clear to auscultation CARDIO: RRR GI: soft, nontender, bowel sounds present SKIN: no rashes, bruising on the right lateral back with point tenderness EXTREMITIES: no edema, redness or tenderness Objective Data Vital Signs Vital Signs: Vital Signs - 24 hr 03/06/22 14:42 03/06/22 14:00 03/06/22 20:12 Temperature 97.2 F L Pulse Rate 78 115 H 97 Respiratory Rate 20 22 H 16 Blood Pressure 101/78 Pulse Oximetry 91 96 Oxygen Delivery Nasal Cannula Oxygen Flow Rate 4 03/06/22 20:12 03/06/22 20:18 03/06/22 22:00 Temperature 97.4 F L Pulse Rate 97 97 95 Respiratory Rate 16 16 16 Blood Pressure 123/67 Pulse Oximetry 95 Oxygen Delivery Oxygen Flow Rate 03/07/22 03:10 03/07/22 03:19 03/07/22 06:00 T
--- NOTE | 2022-03-07 12:41 | PCSTNOTE ---
Speech Therapist spoke with patient who remains happy with diet consistency, much easier to eat but stated the food has no flavor. She reports she is following swallowing guidelines and has had no difficulty swallowing in the past few days.
[2022-03-07] MEDS: SENNA/DOCUSATE SODIUM TABLET 1 TAB PO (20:13)
[2022-03-07] MEDS: PRAMIPEXOLE 0.5 MG TABLET PO (20:14)
[2022-03-07] MEDS: AMITRIPTYLINE HCL 25 MG TABLET PO (20:14)
[2022-03-08] VITALS (11 sets, daily range): BP systolic 96–111; BP diastolic 65–70; PULSE 77–89; RESP 17–20; TEMP 35.9–36.2; O2SAT 95–99
[2022-03-08] MEDS: oxyCODONE HCL (*CRX) 2.5 MG TAB IR PO ×6 (00:56→20:27)
[2022-03-08] MEDS: ACETAMINOPHEN 325 MG TABLET 650 MG PO ×6 (00:56→20:27)
[2022-03-08] MEDS: IPRATROPIUM BR 0.02% INH SOLN 0.5 MG/2.5 ML VIAL INHALATION ×4 (03:09→22:20)
[2022-03-08] MEDS: ALBUTEROL SULFATE NEB 2.5 MG/3 ML INH INHALATION ×4 (03:09→22:20)
[2022-03-08 06:25] LABS: Hematocrit 26.8 % (37.0-47.0); Hemoglobin 7.9 g/dL (12.0-15.0); Mean Corpuscular HGB Conc 29.5 g/dl (32-36); Mean Corpuscular Hemoglobin 25.4 pg (26-34); Mean Corpuscular Volume 86.2 fl (80-100); Mean Platelet Volume 9.3 fl (7.4-10.4); Platelet Count Result 183 k/mm3 (150-375); Red Blood Count 3.11 M/mm3 (4.2-5.4); Red Cell Distribution Width 14.8 % (11.5-14.5); White Blood Count 5.8 K/mm3 (4.5-10.0)
[2022-03-08 06:39] LABS: Anion Gap 6 mmol/L (8-16); Blood Urea Nitrogen 14 mg/dL (7-17); Calcium 8.2 mg/dL (8.4-10.2); Carbon Dioxide 34 mmol/L (22-30); Chloride 96 mmol/L (98-107); Estimated Glomerular Filt Rate 59; Glucose 92 mg/dL (65-110); Potassium 3.6 mmol/L (3.4-5.0); Sodium 136 mmol/L (137-145)
[2022-03-08] MEDS: PREGABALIN (*CRX) 50 MG CAPSULE 100 MG PO ×2 (08:14→16:15)
[2022-03-08] MEDS: polyethylene glycoL 3350 17 GM POWD.PACK PO ×3 (08:14→16:15)
[2022-03-08] MEDS: LIDOCAINE 5% PATCH 1 PATCH TRANSDERM (08:15)
[2022-03-08] MEDS: ASCORBIC ACID 500 MG TABLET PO (08:15)
[2022-03-08] MEDS: MEMANTINE 5 MG TABLET PO ×2 (08:15→16:16)
[2022-03-08] MEDS: FERROUS SULFATE DRIED 142 MG TABCR PO ×2 (08:16→16:16)
[2022-03-08] MEDS: CLOPIDOGREL BISULFATE 75 MG TABLET PO (08:16)
[2022-03-08] MEDS: ATORVASTATIN 40 MG TABLET 80 MG PO (08:16)
[2022-03-08] MEDS: PANTOPRAZOLE 40 MG TABLET PO (08:16)
[2022-03-08] MEDS: CITALOPRAM HYDROBROMIDE 20 MG TABLET PO (08:16)
[2022-03-08] MEDS: ENOXAPARIN 40 MG/0.4 ML SYRINGE SUB-Q (08:16)
[2022-03-08 08:49] LABS: Troponin I < 0.012 ng/mL (0.000-0.034)
--- NOTE | 2022-03-08 14:03 | PM.IMPN ---
Progress Note: A&P Assessment and Plan (1) Pneumonia: Code(s): J18.9 - Pneumonia, unspecified organism Status: Acute Assessment and Plan: -the patient is chronically on 2-4 L per nasal cannula. -continue with nebulizer treatments. -continue cefepime and vancomycin. -blood culture no growth to date -sputum culture: TNP -speech has evaluated the patient -shortness of breath improved -discussed discharge tomorrow (2) COPD (chronic obstructive pulmonary disease): Qualifiers: COPD type: unspecified COPD Qualified Code(s): J44.9 - Chronic obstructive pulmonary disease, unspecified Code(s): J44.9 - Chronic obstructive pulmonary disease, unspecified Status: Chronic Assessment and Plan: -continue with current oxygen -continue with nebulizer treatments. (3) Depression with anxiety: Code(s): F41.8 - Other specified anxiety disorders Status: Chronic Assessment and Plan: -continue with amitriptyline and Celexa went home medications are verified. (4) Chronic GERD: Code(s): K21.9 - Gastro-esophageal reflux disease without esophagitis Status: Chronic Assessment and Plan: pantoprazole 40 mg q.a.m. (5) Pleural effusion: Code(s): J90 - Pleural effusion, not elsewhere classified Status: Acute Assessment and Plan: discontinue IV Lasix (6) Constipation: Code(s): K59.00 - Constipation, unspecified Status: Acute Assessment and Plan: Bisacodyl suppository p.r.n. along with MiraLax t.i.d. scheduled (7) Hypotension: Code(s): I95.9 - Hypotension, unspecified Status: Acute Assessment and Plan: blood pressure stable (8) Restless leg syndrome: Code(s): G25.81 - Restless legs syndrome Status: Acute Assessment and Plan: Starting patient's Mirapex. it was not originally on her home med list. Her son brought in the prescription in it has been added to her med list. (9) Fall: Code(s): W19.XXXA - Unspecified fall, initial encounter Status: Acute Assessment and Plan: Patient had a fall at home resulting in a bruise on her right lateral back. Patient still having pain that is worsened with her cough. Patient using lidocaine patch this states that does not help. (10) Chest pain: Code(s): R07.9 - Chest pain, unspecified Status: Acute Assessment and Plan: patient describes having intermittent chest pain in describes as a squeezing pain stat EKG and troponins ordered both came back normal Time Spent With Patient Time with patient: Greater than 35 minutes Subjective Date/time seen: 03/08/22 14:03 Interval history: Patient is resting in bed while being interviewed. Patient states that she is still having pain in a on her right lateral back. States that she has begun to have shoulder pain and chest tightness intermittently. She denies fever, shortness of breath, N/V, diarrhea, and constipation. Review of Systems Review of Systems: All systems reviewed & are unremarkable except as noted in HPI and below Exam Narrative: GENERAL: Comfortable, no acute distress HENMT: moist mucous membranes EYES: EOM intact b/l NECK: no lymphadenopathy RESPIRATORY: decreased breath sounds, crackles in the lung bases, otherwise clear to auscultation CARDIO: RRR GI: soft, nontender, bowel sounds present SKIN: no rashes, bruising on the right lateral back with point tenderness EXTREMITIES: no edema, redness or tenderness Objective Data Vital Signs Vital Signs: Vital Signs - 24 hr 03/07/22 14:58 03/07/22 15:06 03/07/22 20:21 Temperature Pulse Rate 88 80 78 Respiratory Rate 16 16 14 Blood Pressure Pulse Oximetry Oxygen Delivery Oxygen Flow Rate 03/07/22 20:00 03/07/22 22:00 03/08/22 03:11 Temperature 97.5 F L Pulse Rate 83 89 Respiratory Rate 17 17 Blood Pressure 117/72 Pulse Oximetry 100 99
[2022-03-08] MEDS: SENNA/DOCUSATE SODIUM TABLET 1 TAB PO (20:28)
[2022-03-08] MEDS: AMITRIPTYLINE HCL 25 MG TABLET PO (20:28)
[2022-03-08] MEDS: PRAMIPEXOLE 0.5 MG TABLET PO (20:29)
--- NOTE | 2022-03-09 | ECG_ITS ---
Measurements Intervals [place] Rate: 84 P: 60 ND: 157 QRS: -7 QRSD: 91 T: 0 QT: 381 QTc: 452 Interpretive Statements SINUS RHYTHM ATRIAL PREMATURE COMPLEX DELAYED PRECORDIAL R/S TRANSITION BORDERLINE T WAVE ABNORMALITY- INFERIOR LEADS BASELINE ARTIFACT- I, III, AVF BORDERLINE ECG NO PREVIOUS ECG AVAILABLE FOR COMPARISON Electronically Signed On 03-09-2022 9:16:39 INSURANCE CUSTOMER SERVICE SPECIALIST by Cristian Sanchez D.O.
[2022-03-09] MEDS: oxyCODONE HCL (*CRX) 2.5 MG TAB IR PO ×4 (00:32→13:13)
[2022-03-09] MEDS: ACETAMINOPHEN 325 MG TABLET 650 MG PO ×4 (00:33→13:13)
[2022-03-09 02:35] LABS: Vancomycin Trough 17.6 ug/mL (10.0-20.0)
[2022-03-09] MEDS: IPRATROPIUM BR 0.02% INH SOLN 0.5 MG/2.5 ML VIAL INHALATION ×2 (03:02→09:10)
[2022-03-09] MEDS: ALBUTEROL SULFATE NEB 2.5 MG/3 ML INH INHALATION ×2 (03:02→09:09)
[2022-03-09 03:04] VITALS: PULSE 78; RESP 16
[2022-03-09 06:00] VITALS: BP 94/57; PULSE 81; RESP 18; TEMP 35.9; O2SAT 100
[2022-03-09 07:16] LABS: Hematocrit 28.8 % (37.0-47.0); Hemoglobin 8.6 g/dL (12.0-15.0); Mean Corpuscular HGB Conc 29.9 g/dl (32-36); Mean Corpuscular Hemoglobin 25.7 pg (26-34); Mean Corpuscular Volume 86.2 fl (80-100); Mean Platelet Volume 9.7 fl (7.4-10.4); Platelet Count Result 209 k/mm3 (150-375); Red Blood Count 3.34 M/mm3 (4.2-5.4); Red Cell Distribution Width 15.3 % (11.5-14.5); White Blood Count 6.9 K/mm3 (4.5-10.0)
[2022-03-09 07:36] LABS: Anion Gap 6 mmol/L (8-16); Blood Urea Nitrogen 13 mg/dL (7-17); Calcium 8.1 mg/dL (8.4-10.2); Carbon Dioxide 34 mmol/L (22-30); Chloride 96 mmol/L (98-107); Estimated Glomerular Filt Rate 59; Glucose 84 mg/dL (65-110); Sodium 136 mmol/L (137-145)
[2022-03-09 08:00] VITALS: O2SAT 100
[2022-03-09] MEDS: FERROUS SULFATE DRIED 142 MG TABCR PO (08:56)
[2022-03-09] MEDS: CLOPIDOGREL BISULFATE 75 MG TABLET PO (08:56)
[2022-03-09] MEDS: ENOXAPARIN 40 MG/0.4 ML SYRINGE SUB-Q (08:56)
[2022-03-09] MEDS: ASCORBIC ACID 500 MG TABLET PO (08:56)
[2022-03-09] MEDS: CITALOPRAM HYDROBROMIDE 20 MG TABLET PO (08:56)
[2022-03-09] MEDS: ATORVASTATIN 40 MG TABLET 80 MG PO (08:56)
[2022-03-09] MEDS: polyethylene glycoL 3350 17 GM POWD.PACK PO ×2 (08:57→13:18)
[2022-03-09] MEDS: MEMANTINE 5 MG TABLET PO (08:57)
[2022-03-09] MEDS: LIDOCAINE 5% PATCH 1 PATCH TRANSDERM (08:57)
[2022-03-09] MEDS: PANTOPRAZOLE 40 MG TABLET PO (08:57)
[2022-03-09] MEDS: PREGABALIN (*CRX) 50 MG CAPSULE 100 MG PO (09:03)
--- NOTE | 2022-03-09 13:01 | PM.DS ---
DS: Admitting Diagnosis Discharge Date 03/09/2022 Admitting Diagnosis COPD exacerbation DS: Discharge Diagnosis Discharge Diagnosis (1) Pneumonia: Code(s): J18.9 - Pneumonia, unspecified organism Status: Acute (2) COPD (chronic obstructive pulmonary disease): Qualifiers: COPD type: unspecified COPD Qualified Code(s): J44.9 - Chronic obstructive pulmonary disease, unspecified Code(s): J44.9 - Chronic obstructive pulmonary disease, unspecified Status: Chronic (3) Depression with anxiety: Code(s): F41.8 - Other specified anxiety disorders Status: Chronic (4) Chronic GERD: Code(s): K21.9 - Gastro-esophageal reflux disease without esophagitis Status: Chronic (5) Pleural effusion: Code(s): J90 - Pleural effusion, not elsewhere classified Status: Acute (6) Constipation: Code(s): K59.00 - Constipation, unspecified Status: Acute (7) Hypotension: Code(s): I95.9 - Hypotension, unspecified Status: Acute (8) Restless leg syndrome: Code(s): G25.81 - Restless legs syndrome Status: Acute Assessment and Plan: (9) Fall: Code(s): W19.XXXA - Unspecified fall, initial encounter Status: Acute (10) Chest pain: Code(s): R07.9 - Chest pain, unspecified Status: Acute DS: Summary Hospital Course Reason for hospitalization: COPD exacerbation Hospital Course: 87-year-old female with history of COPD presents to the ER on 03/03/2022 due to shortness of breath and right-sided rib pain. patient is on 2-4 L of oxygen at home she had been recently diagnosed with pneumonia and treated with what we presumed was Levaquin due to her saying she was on antibiotic that you take once a day. Patient had a ground level fall the day prior to ER arrival and injured her right ribs. Chest x-ray did not reveal any fractures. States that the cough next decide pain even worse. Patient had a chest CT showing ground-glass opacities bilaterally with more focal consolidation in the lower lobes which may represent pneumonia versus atelectasis. He small right pleural effusion. patient was started on cefepime and vanc due to failed outpatient pneumonia treatment and was admitted into observation. patient was on nebulizer treatments and 4 L of oxygen. Sputum cultures and blood cultures were obtained. Patient did experience some hypotension patient was given 2 boluses of 500 mL of normal saline. Morphine and Percocet was put on hold due to possible cause of hypotension. patient's propranolol was also held. Blood pressure improved. Ended up increasing patient's oxycodone to 2.5 due to patient being on 5 mg Percocet daily as maintenance pain med. blood pressure remains stable. Patient was given IV Tylenol for pain. Patient started on iron due to H&H being 9 and 31.4. On physical exam patient's lungs were initially course and had crackles and improved during her hospital stay. Patient continues to have a nonproductive wet cough but on discharge day lungs were clear to auscultation. Sputum culture results revealed TNP and blood culture results were negative. patient did mention having some chest pain during her stay. EKG and troponin were negative. On discharge patient states that her shortness of breath has improved since being admitted, her chest pain has improved, and her cough is less severe. Time Spent with Patient Time attestation: Total time spent providing and/or coordinating discharge services: Exam Narrative: GENERAL: Comfortable, no acute distress HENMT: moist mucous membranes EYES: EOM intact b/l NECK: no lymphadenopathy RESPIRATORY: Lungs clear to auscultation CARDIO: RRR GI: soft, nontender, bowel sounds present SKIN: no rashes, bruising on the right lateral back with point tenderness EXTREMITIES: no edema, redness or tenderness DS: Data Data Completed and Pending Labs on day of discharge: Lab
== END 2022-03-09 15:57 | disposition home health service (06) | DRG 190 ==
LOC: ANHED 17:09 → ANH3MEDSUR 18:57
PROVIDERS: Internal Medicine Critical Care Medicine; Nurse Practitioner; Nurse Practitioner Family; Admitting Provider Internal Medicine; Emergency Provider Emergency Medicine; PCP Physician Assistant; Visit Provider Internal Medicine
DX: J44.1 Chronic obstructive pulmonary disease with (acute) exacerbation (principal); J18.9 Pneumonia, unspecified organism; J96.10 Chronic respiratory failure, unspecified whether with hypoxia or hypercapnia; S20.221A Contusion of right back wall of thorax, initial encounter; W19.XXXA Unspecified fall, initial encounter; F41.8 Other specified anxiety disorders; G25.81 Restless legs syndrome; I95.9 Hypotension, unspecified; K21.9 Gastro-esophageal reflux disease without esophagitis; K59.00 Constipation, unspecified; R13.10 Dysphagia, unspecified; R07.81 Pleurodynia; Z20.822 Contact with and (suspected) exposure to COVID-19; Z87.891 Personal history of nicotine dependence; Z99.81 Dependence on supplemental oxygen; Z90.710 Acquired absence of both cervix and uterus; Z98.49 Cataract extraction status, unspecified eye; Z98.1 Arthrodesis status
CPT/HCPCS: 36415; 71100; 71260; 73020; 80048; 80053; 80202; 82607; 82728; 82746; 83540; 83550; 83605; 83735; 83880; 84443; 84484; 85025; 85027; 85610; 85730; 87040; 87070; 87205; 87636; 92526; 92610; 93005; 94640; 96365; 96372; 96375; 97110; 97116; 97161; 97165; 97530; 97535; 99285; A9270; C9113; G0378; J0692; J1650; J1940; J2270; J3370; J7030; Q9967

== ENCOUNTER → 2022-09-30 13:59 | Outpatient (CLI) | payer MEDICARE, SELFPAY ==
--- NOTE | ~2022-09-30 | XR_ITS ---
EXAM: XR shoulder RT min 2V DATE: 09/30/2022 14:34 HISTORY: Right shoulder pain . COMPARISON: None available. FINDINGS: Decreased mineralization. Distracted fracture at the inferior angle of the right scapula. No lytic or blastic lesion. Moderate AC joint and mild glenohumeral joint osteoarthritis. No erosion or periosteal change. Soft tissues within normal limits. IMPRESSION: Severe osteopenia. Acute/subacute fracture at the inferior angle of the right scapula. In terstitial edema/senescent change in the lungs. Reviewed, dictated and finalized at location K. IMPRESSION: Severe osteopenia. Acute/subacute fracture at the inferior angle of the right scapula. Interstitial edema/senescent change in the lungs.
== END ==
PROVIDERS: PCP Physician Assistant; Visit Provider Nurse Practitioner Family
DX: M85.811 Other specified disorders of bone density and structure, right shoulder (principal); S42.101A Fracture of unspecified part of scapula, right shoulder, initial encounter for closed fracture; M25.511 Pain in right shoulder; R91.8 Other nonspecific abnormal finding of lung field; T14.90XA Injury, unspecified, initial encounter
CPT/HCPCS: 73030

== ENCOUNTER 2022-10-01 16:41 | Inpatient (IN) | payer MEDICARE, BC, SELFPAY ==
[2022-10-01] VITALS (12 sets, daily range): BP systolic 90–132; BP diastolic 53–114; PULSE 60–103; RESP 14–20; TEMP 36.4–36.6; O2SAT 92–100; BMI 33.5
--- NOTE | ~2022-10-01 | XR_ITS ---
EXAMINATION: XR chest 2V Exam Date/Time: 10/01/2022 17:45 CDT HISTORY: weakness Comparison: X-ray RIBS 03/04/2022; CT chest 03/03/2022. RESULT: Lines, tubes, and devices: Cholecystomy clips. Vertebroplasty cement in T12. Partially visualized ce rvical fusion hardware Lungs and pleura: Segmental left basilar airspace disease. Chronic appearing subsegmental atelectasi s and scar in the right lower lobe. Bilateral costophrenic angle blunting Cardiomediastinal silhouette: Stable. Other: No acute osseous or upper abdominal finding. IMPRESSION: Segmental left basilar opacities may represent pneumonia in the appropriate clinical context. Small b ilateral effusions. Reviewed, dictated and finalized at location K. IMPRESSION: Segmental left basilar opacities may represent pneumonia in the appropriate cli nical context. Small bilateral effusions.
--- NOTE | ~2022-10-01 | CT_ITS ---
Non-contrast Head CT History: Tremors Technique: Axial non-contrast imaging of the brain was performed. Dose reduction technique was used on this scan by utilizing automated exposure control and iterative reconstruction technique. The dose -length product (DLP) was 605.33 mGy-cm. Findings: There is no evidence of intracranial hemorrhage, mass lesion, or acute infarct. Mild chron ic white matter changes are present in the white matter bilaterally. The ventricles and subarachnoid spaces are normal in size. The calvarium appears normal. The visualized paranasal sinuses and mast oid air cells are clear. Impression: Mild chronic microvascular ischemic changes, otherwise unremarkable exam. Reviewed, dictated and finalized at location M. Impression: Mild chronic microvascular ischemic changes, otherwise unremarkable exam.
--- NOTE | ~2022-10-01 | XR_ITS ---
XR clavicle RT 10/03/2022 09:53 Indication: Right clavicle fracture Procedure: 2 views right clavicle Comparison: 09/30/2022 Findings: The their are degenerative changes of the acromioclavicular and glenohumeral joint with adj acent loose body. Osteopenia. No acute fracture, subluxation or dislocation. Impression: 1: Mild polyarticular osteoarthritis of the right shoulder. 2: No acute fracture. Reviewed, dictated and finalized at location [] Impression: 1: Mild polyarticular osteoarthritis of the right shoulder. 2: No acute fracture.
--- NOTE | 2022-10-01 17:11 | ECG_ITS ---
Measurements Intervals [place] Rate: 78 P: 23 NM: 174 QRS: -1 QRSD: 93 T: 6 QT: 375 QTc: 427 Interpretive Statements SINUS RHYTHM LOW QRS VOLTAGE IN PRECORDIAL LEADS [QRS DEFLECTION < 1.0 mV IN CHEST LEADS] COMPARED TO ECG 03/09/2022 07:33:51 NO SIGNIFICANT CHANGES Electronically Signed On 10-01-2022 20:01:37 CDT by Leonor Nicole M.D.
--- NOTE | 2022-10-01 17:19 | ED.GENADULT ---
HPI - General Adult General Chief complaint: Unspecified <BERE Benitez Last Filed: 10/02/22 03:57> Stated complaint: Uncontrolled tremors when attempting to stand <BERE Benitez Last Filed: 10/02/22 03:57> Time Seen by Provider: 10/01/22 17:15 <BERE Benitez Last Filed: 10/02/22 03:57> Source: patient <BERE Benitez Last Filed: 10/02/22 03:57> Limitations: no limitations <BERE Benitez Last Filed: 10/02/22 03:57> History of Present Illness HPI narrative: Patient is an 87-year-old female who presents the ED with report of shakiness and weakness. Patient reports anytime she is tries to stand up or move around, her arms and legs bounce. She states this has been intermittent for the last 4 years, but has never been this bad. She states she has had difficulty performing ADLs today due to the bouncing. She states she feels weak and like she is going to fall. Patient did have a recent fall last week and was diagnosed with a right clavicle fracture via outpatient x-ray today. She was placed in an arm sling. Patient uses a walker for assistance with ambulation, but states the fracture has not affected her with this. Patient denies any other concerns. Denies focal weakness. Denies chest pain, difficulty breathing. She wears 4 L nasal cannula chronically, has not had to go up on this. Denies any recent illness, cough, cold symptoms, nausea, vomiting, abdominal pain, dizziness, lightheadedness, headache. <BERE Benitez Last Filed: 10/02/22 03:57> Related Data Home medications: Home Medications Medication Instructions Recorded Confirmed citalopram 20 mg tablet 20 mg PO DAILY 10/23/20 10/01/22 furosemide 20 mg tablet 20 mg PO DAILY 10/23/20 10/01/22 oxycodone-acetaminophen 5 mg-325 1 tablet PO Q6H PRN Pain (Scale 10/23/20 10/01/22 mg tablet Score 7-10) pantoprazole 40 mg tablet,delayed 40 mg PO QAM 10/23/20 10/01/22 release atorvastatin 80 mg tablet 80 mg PO DAILY 03/04/22 10/01/22 clopidogrel 75 mg tablet 75 mg PO DAILY 03/04/22 10/01/22 memantine 5 mg tablet 5 mg PO BID 03/04/22 10/01/22 pramipexole 0.5 mg tablet (Mirapex) 0.5 mg PO HS 03/07/22 10/01/22 ferrous sulfate 325 mg (65 mg 325 mg PO DAILY 10/01/22 10/01/22 iron) tablet pregabalin 100 mg capsule 100 mg PO TID 10/01/22 10/01/[address] <[address] PA-C - Last Filed: 10/02/22 03:57> Allergies/adverse reactions: Allergies Allergy/AdvReac Type Severity Reaction Status Date / Time chlorpromazine Allergy Unknown Unknown Verified 10/01/22 19:42 [From Thorazine] diphenhydramine Allergy Unknown Unknown Verified 10/01/22 19:42 [From Benadryl] rofecoxib [From Vioxx] Allergy Unknown Unknown Verified 10/01/22 19:[address] <[address] PA-C - Last Filed: 10/02/22 03:57> Review of Systems Review of Systems: CONSTITUTIONAL: Denies fever, chills, or sweats. EYES: Denies visual changes. CARDIOVASCULAR: Denies chest pain. RESPIRATORY: Denies cough or dyspnea. GASTROINTESTINAL: Denies abdominal pain, nausea, vomiting, or diarrhea. GENITOURINARY: Denies dysuria or hematuria. MUSCULOSKELETAL: See HPI. NEUROLOGIC: See HPI. <Agata Way PA-C - Last Filed: 10/02/22 03:57> All systems reviewed & are unremarkable except as noted in HPI and below <Agata Way PA-C - Last Filed: 10/02/22 03:57> PMFSH Past Medical History Medical History: Medical History Acute exacerbation of chronic obstructive airways disease Chronic GERD COPD (chronic obstructive pulmonary disease) Depression with anxiety Hiatal hernia <Agata Way PA-C - Last Filed: 10/02/22 03:57> Surgical History Surgical History: Surgical History H/O bladder repair surgery H/O breast surgery H/O colono
[2022-10-01 17:49] LABS: Basophils Percent Auto 0.2 % (0.2-1.2); Eosinophils Absolute Auto 0.1 K/mm3 (0-0.3); Hematocrit 34.1 % (37.0-47.0); Hemoglobin 10.1 g/dL (12.0-15.0); Immature Granulocyte Absolute 0.04 K/mm3 (0.00-0.031); Immature Granulocyte Percent A 0.3 % (0-0.5); Lymphocytes Absolute Auto 1.47 K/mm3 (0.9-3.2); Lymphocytes Percent Auto 11.4 % (18.3-44.2); Mean Corpuscular HGB Conc 29.6 g/dl (32-36); Mean Corpuscular Hemoglobin 26.2 pg (26-34); Mean Corpuscular Volume 88.6 fl (80-100); Monocytes Absolute Auto 0.6 K/mm3 (0.1-0.6); Monocytes Percent Auto 4.9 % (2.6-8.5); Neutrophils Absolute Auto 10.6 K/mm3 (1.3-6.7); Neutrophils Percent Auto 82.2 % (45.5-73.1); Platelet Count Result 171 k/mm3 (150-375); Red Blood Count 3.85 M/mm3 (4.2-5.4); Red Cell Distribution Width 17.3 % (11.5-14.5); White Blood Count 12.9 K/mm3 (4.5-10.0)
[2022-10-01 18:02] LABS: Platelet Estimate Adequate (Adequate)
[2022-10-01 18:03] LABS: Schistocytes None Seen (NORMAL)
[2022-10-01 18:04] LABS: Anisocytosis 2+ (NORMAL); Hypochromasia 1+ (NORMAL)
[2022-10-01 18:08] LABS: Magnesium 2.3 mg/dL (1.6-2.3)
[2022-10-01 18:10] LABS: Alanine Aminotransferase 48 U/L (6-35); Albumin Level 3.8 g/dL (3.5-5.1); Alkaline Phosphatase 108 U/L (38-126); Aspartate Amino Transferase 57 U/L (14-36); Bilirubin,Total 0.9 mg/dL (0.2-1.3); Blood Urea Nitrogen 24 mg/dL (7-17); Calcium 8.2 mg/dL (8.4-10.2); Carbon Dioxide > 40 mmol/L (22-30); Chloride 90 mmol/L (98-107); Estimated Glomerular Filt Rate 59; Glucose 104 mg/dL (65-110); Potassium 4.4 mmol/L (3.4-5.0); Sodium 138 mmol/L (137-145)
[2022-10-01 18:51] LABS: Appearance Urine Cloudy (Clear); Bacteria Urine 4+ /hpf; Bilirubin Urine Negative (Negative); Blood Urine Negative (Negative); Color Urine Yellow (Yellow); Glucose Urine UA Negative (Negative); Ketones Urine Negative (Negative); Leukocyte Esterase Ur 3+ LEU/UL (Negative); Nitrate Urine Positive (Negative); Non Pathogenic Casts 0-2; Protein Urine Negative (Negative); RBC Urine 0-2 /hpf (0-2); Specific Grav Ur 1.008 (1.001-1.035); Squamous Epithelial Cell Urine None seen /hpf (Few); WBC Urine >100 /hpf; pH Urine 6.5 (5.0-9.0)
[2022-10-01 18:54] LABS: Add Urine Microscopic? YES
[2022-10-01 19:08] LABS: Creatine Kinase 56 U/L (30-135)
[2022-10-01 19:15] LABS: NT Pro B Type Natriuretic Pept 164 pg/mL (19.9-100)
[2022-10-01 19:25] LABS: Troponin I < 0.012 ng/mL (0.000-0.034)
[2022-10-01 19:29] LABS: Base Excess ABG 15.4 mEq/l (+/-2.0); Carboxyhemoglobin 1.2 % THb (0-2.0); Fractional Inspired Oxygen 36 %; HCO3 ABG 42.9 mEq/l (22.0-26.0); Methemoglobin ABG 0.3 %THb (0-1.5); Oxygen Content ABG 13.6 %vol (16.0-22.0); Oxyhemoglobin 90.3 % THb (90.0-100.0); PO2 ABG 65.4 mmHg (80.0-100.0); PO2 FiO2 Ratio Arterial Blood 1.82 %; Reduced Hemoglobin 8.2 %THb (0-5.0); Total Hemoglobin 10.7 g/dL (12.0-18.0)
[2022-10-01 19:33] LABS: Device NASAL CANNULA; Modified Allen's Test Pass; PCO2 ABG 70.9 mmHg (35.0-45.0); Site Drawn LEFT RADIAL
[2022-10-01] MEDS: AZITHROMYCIN 500 MG/NS 250 ML 500 MG/250 ML BAG 250 MG IVPB (20:55)
[2022-10-01] MEDS: SODIUM CHLORIDE 0.9% IV 1,000 ML 999 ML IV CONT (20:56)
[2022-10-01] MEDS: IPRATROPIUM BR 0.02% INH SOLN 0.5 MG/2.5 ML VIAL 1.5 MG INHALATION (21:00)
[2022-10-01] MEDS: LEVALBUTEROL NEB 1.25 MG/3 ML 2.5 MG INHALATION (21:01)
[2022-10-01 21:40] LABS: Influenza A QL RT-PCR Negative (Negative); Influenza B QL RT-PCR Negative (Negative); SARS-CoV-2 RNA PCR Negative (Negative)
--- NOTE | 2022-10-01 22:40 | PM.IMHP ---
H&P: HPI History of Present Illness Date/Time: 10/01/22 22:40 Chief Complaint: WEAKNESS AND SOME ARM TWITCHING Narrative: PATIENT IS AN 87-YEAR-OLD FEMALE WITH PAST MEDICAL HISTORY OF COPD AND CHRONIC OXYGEN 4 L, WHO HAS BEEN FEELING WEAK WITH THE ON AND OFF ARM TWITCHING FOR A WHILE NOW. PATIENT LIVES BY HERSELF BUT HAS A CAREGIVER WHO SEES HER 22 HOURS A WEEK. SHE SAID THAT SHE HAS NOTICED THAT SOMETIMES SHE HAS SOME JERKING MOVEMENTS OF BOTH HER ARMS. SHE HAS BEEN HAVING SOME CHRONIC COUGH WITH NO INCREASED SHORTNESS OF BREATH. She denies any fever, nausea or vomiting. She said that she uses a walker at home but has had several episodes of falling. She denies any known sick contacts insists that she is fully vaccinated against COVID. No history of seizure disorder. 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 She denies any recent antibiotic use. In the ER patient had a chest x-ray which showed some lower lobe pneumonia. She also had evidence of CO2 retention with her blood gas showing CO2 of up to 70. She denies any history of BiPAP use in the past. Review of Systems Review of Systems: no fever or weight loss no vision changes, no eye discharge no throat pain, no hoarseness, no lymphadenopathy no chest pain, no palpitations Chronic coughing, no wheezing no abdominal pain, no diarrhea, no nausea, no vomiting no dysuria, no vaginal discharge no leg swelling, no edema no suicidal or homicidal ideation PMFSH Past Medical History Medical History Acute exacerbation of chronic obstructive airways disease Chronic GERD COPD (chronic obstructive pulmonary disease) Depression with anxiety Hiatal hernia Surgical History Surgical History H/O bladder repair surgery H/O breast surgery H/O colonoscopy H/O esophagogastroduodenoscopy H/O foot surgery H/O hernia repair H/O Spinal surgery H/O wrist surgery H/O: hysterectomy Hx of cataract extraction Hx of cholecystectomy S/P cervical spinal fusion S/P tonsillectomy Family History Family History Father Bladder cancer Mother Hypertension Depression Sibling Asthma Hypertension Depression Grandparent Hypertension Heart disease Cerebrovascular accident Grandparent Alcoholism Lung cancer Social History Social History Social History: The patient is and has 3 children. 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 She tells me she was a former smoker. She chronically wears oxygen at home. She does not have a durable power litigation attorney associate for healthcare. She has an alcoholic beverage approximately 4 times per week. Code status full code Smoking packs per day: 1 Smoking cigarettes per day: 20.0 Smoking status: Former smoker Tobacco type: cigarettes Second hand tobacco smoke exposure: No Alcohol intake: current Drinks per week: 1 Substance use: never Substance use type: does not use Lack of Transportation: No Lack of Food: Never True Current Housing: I Have Housing Concerned About Future Housing: No Difficulty Paying Gas/Electric Bills: No Difficulty Paying for Meds: No Currently Unemployed: No Education: Associate Degree Difficulty w/ Childcare or Family Care: No Spiritual care concerns: No Meds Home Medications and Allergies Home Medications Medication Instructions Recorded Confirmed Type amitriptyline 25 mg tablet 25 mg PO QHS 10/23/20 03/03/22 History citalopram 20 mg tablet 20 mg PO DAILY 10/23/20 03/03/22 History furosemide 20 mg tablet 20 mg PO QAM 10/23/20 03/03/22 History oxycodone-acetaminophen 5 mg-325 1 tablet PO Q6H PRN Pain 10/23/20 03/03/22 History mg tabl
--- NOTE | 2022-10-01 23:38 | PC.NURSE ---
Patient refuses bipap.
--- NOTE | 2022-10-01 23:41 | ADMGEN ---
This patient, Jazmin Bullard, was admitted to IMU Room 212-01. Patient/family oriented to hospital policies and general routines including ID bracelet, bed and alarms, visiting hours, pain management, procedures, bathroom and other care routines, personal items, smoking policy, room service/diet, and visiting hours. Information on how to activate the Rapid Response Team has been discussed. Patient/Family are encouraged to report perceived risks to care and to ask questions if they do not understand what they are told or what they should do.
[2022-10-02] VITALS (17 sets, daily range): BP systolic 96–167; BP diastolic 55–89; PULSE 68–118; RESP 10–22; TEMP 36–36.8; O2SAT 92–100
[2022-10-02 04:48] LABS: Basophils Percent Auto 0.2 % (0.2-1.2); Eosinophils Absolute Auto 0.1 K/mm3 (0-0.3); Eosinophils Percent Auto 1.3 % (0-4.4); Immature Granulocyte Absolute 0.03 K/mm3 (0.00-0.031); Immature Granulocyte Percent A 0.3 % (0-0.5); Immature Platelet Fraction Pct 4.5 % (0.9-11.2); Lymphocytes Absolute Auto 0.98 K/mm3 (0.9-3.2); Lymphocytes Percent Auto 9.5 % (18.3-44.2); Mean Corpuscular Hemoglobin 25.9 pg (26-34); Mean Corpuscular Volume 89.3 fl (80-100); Mean Platelet Volume 10.2 fl (7.4-10.4); Monocytes Absolute Auto 0.7 K/mm3 (0.1-0.6); Monocytes Percent Auto 6.4 % (2.6-8.5); Neutrophils Absolute Auto 8.5 K/mm3 (1.3-6.7); Neutrophils Percent Auto 82.3 % (45.5-73.1); Platelet Count Result 148 k/mm3 (150-375); Red Blood Count 3.47 M/mm3 (4.2-5.4); Red Cell Distribution Width 17.5 % (11.5-14.5); White Blood Count 10.3 K/mm3 (4.5-10.0)
[2022-10-02 05:17] LABS: Blood Urea Nitrogen 24 mg/dL (7-17); Calcium 7.6 mg/dL (8.4-10.2); Carbon Dioxide > 40 mmol/L (22-30); Chloride 95 mmol/L (98-107); Estimated Glomerular Filt Rate 59; Glucose 106 mg/dL (65-110); Sodium 140 mmol/L (137-145)
[2022-10-02 09:41] LABS: Alveolar/Arterial O2 Gradient 103.2 mmHg; Fractional Inspired Oxygen 36 %; HCO3 ABG 39.7 mEq/l (22.0-26.0); Oxygen Content ABG 12.9 %vol (16.0-22.0); Oxygen Saturation ABG 92.7 % (95.0-100.0); Oxyhemoglobin 92.3 % THb (90.0-100.0); PO2 ABG 70.2 mmHg (80.0-100.0); PO2 FiO2 Ratio Arterial Blood 1.95 %; Total Hemoglobin 9.9 g/dL (12.0-18.0)
[2022-10-02 09:44] LABS: Device NASAL CANNULA; Modified Allen's Test Pass; PCO2 ABG 71.8 mmHg (35.0-45.0); Site Drawn LEFT RADIAL
[2022-10-02 12:59] LABS: Vitamin D 25 Hydroxy 30.1 ng/mL
--- NOTE | 2022-10-02 13:35 | PM.IMPN ---
Progress Note: A&P Assessment and Plan (1) Pneumonia: Qualifiers: Laterality: left Lung location: lower lobe of lung Pneumonia type: due to unspecified organism Qualified Code(s): J18.9 - Pneumonia, unspecified organism Code(s): J18.9 - Pneumonia, unspecified organism Status: Acute Assessment and Plan: Continue ceftriaxone and azithromycin. -continue oxygen support to, was on 4 L at baseline, however has evidence of CO2 retention up to 70, will continue BiPAP treatment - patient counseled on continuing BiPAP since CO2 still high (2) Fracture, scapula closed: Code(s): S42.109A - Fracture of unspecified part of scapula, unspecified shoulder, initial encounter for closed fracture Status: Acute Assessment and Plan: -patient with actual bilateral shoulder pain, x-ray showing questionable acute versus subacute right scapular fracture, consistent with history of frequent falls -continue pain medications -ortho consult -PT consult -fall precautions (3) Generalized weakness: Code(s): R53.1 - Weakness Status: Acute Assessment and Plan: patient has generalized weakness. Could be secondary to arthritis in the spine. CT head was negative for any acute findings. She does have resting tremors in upper extremities which could also be from weakness. Would recommend outpatient follow-up with Neurology to rule out Parkinson's disease. At this time will continue PT and OT Subjective Date/time seen: 10/02/22 13:35 Interval history: patient reports generalized weakness, gait instability, bilateral upper extremity tremors Review of Systems Review of Systems: no fever or weight loss no vision changes, no eye discharge no throat pain, no hoarseness, no lymphadenopathy no chest pain, no palpitations Chronic coughing, no wheezing no abdominal pain, no diarrhea, no nausea, no vomiting no dysuria, no vaginal discharge no leg swelling, no edema no suicidal or homicidal ideation Exam Narrative: general- awake, alert, oriented, no distress heent- perrl, no nystagmus, no throat swelling, no dicharge chest-course breath sounds, no wheezes, rales on left lower base, no crackles heart- s1, s2, regular rate and rhythm, no gallops or murmurs abdomen- soft, bowel sounds heard, no rebound or tenderness extremities- no edema or cyanosis, arthritic changes in both hands psych- no suicidal or homicidal ideation neuro- moves all extremities, no focal neurologic deficit, mentation intact, motor function 3 x 5 in bilateral upper and lower extremities, resting tremor in upper extremities Objective Data Vital Signs Vital Signs: Vital Signs - 24 hr 10/01/22 17:16 10/01/22 19:31 10/01/22 19:32 Temperature 97.6 F Pulse Rate 80 60 Respiratory Rate 18 14 Blood Pressure 115/85 90/55 L Pulse Oximetry 100 94 94 Oxygen Delivery Nasal Cannula Oxygen Flow Rate 4 10/01/22 21:01 10/01/22 19:33 10/01/22 19:52 Temperature Pulse Rate Respiratory Rate 18 Blood Pressure Pulse Oximetry 92 94 Oxygen Delivery Oxygen Flow Rate 10/01/22 20:13 10/01/22 20:32 10/01/22 20:33 Temperature Pulse Rate 96 Respiratory Rate 14 Blood Pressure 98/53 L Pulse Oximetry 95 98 99 Oxygen Delivery Oxygen Flow Rate 10/01/22 20:45 10/01/22 22:00 10/01/22 23:36 Temperature 97.8 F Pulse Rate 103 H Respiratory Rate 20 Blood Pressure 132/114 H 132/114 H Pulse Oximetry 100 92 Oxygen Delivery Oxygen Flow Rate 10/02/22 00:00 10/02/22 00:00 10/02/22 02:00 Temperature Pulse Rate 88 89 80 Respiratory Rate Blood Pressure Pulse Oximetry 100 Oxygen Delivery Nasal Cannula Oxygen Flow Rate 4 10/02/22 03:43 10/02/22 04:00 10/02/22 04:00 Temperature 97.7 F Pulse Rate 87 78 79 Respiratory Rate 18 Blood Pressure 167/89 H Pulse Oximetry 100 100 Oxygen Delivery Nasal Cannula Oxygen Flow Rate 10/02
[2022-10-02] MEDS: ACETAMINOPHEN 325 MG TABLET 650 MG PO (14:17)
[2022-10-02] MEDS: ENOXAPARIN 40 MG/0.4 ML SYRINGE SUB-Q (15:20)
[2022-10-02] MEDS: PANTOPRAZOLE 40 MG TABLET PO (15:22)
[2022-10-02] MEDS: CITALOPRAM HYDROBROMIDE 20 MG TABLET PO (15:23)
[2022-10-02] MEDS: FERROUS SULFATE 324 MG TABLET PO (15:23)
[2022-10-02] MEDS: PREGABALIN (*CRX) 50 MG CAPSULE 100 MG PO (17:17)
[2022-10-02] MEDS: CLOPIDOGREL BISULFATE 75 MG TABLET PO (17:18)
[2022-10-02] MEDS: oxyCODONE/ACETAMINOPHEN (*CRX) 5-325 MG TABLET 1 TABLET PO ×2 (17:21→23:33)
[2022-10-02] MEDS: AZITHROMYCIN 500 MG/NS 250 ML 500 MG/250 ML BAG 250 MG IVPB (20:51)
[2022-10-02] MEDS: AMITRIPTYLINE HCL 25 MG TABLET PO (20:52)
[2022-10-02] MEDS: MEMANTINE 5 MG TABLET PO (20:53)
[2022-10-02] MEDS: ATORVASTATIN 40 MG TABLET 80 MG PO (20:53)
[2022-10-02] MEDS: PRAMIPEXOLE 0.5 MG TABLET PO (20:53)
[2022-10-02] MEDS: BISACODYL 5 MG TABLET EC PO (21:11)
[2022-10-03] VITALS (11 sets, daily range): BP systolic 106–122; BP diastolic 43–82; PULSE 63–108; RESP 16–20; TEMP 35.9–36.5; O2SAT 92–100
--- NOTE | 2022-10-03 10:20 | PM.IMPN ---
Progress Note: A&P Assessment and Plan (1) Pneumonia: Qualifiers: Laterality: left Lung location: lower lobe of lung Pneumonia type: due to unspecified organism Qualified Code(s): J18.9 - Pneumonia, unspecified organism Code(s): J18.9 - Pneumonia, unspecified organism Status: Acute Assessment and Plan: Continue ceftriaxone and azithromycin. -continue oxygen support to, was on 4 L at baseline, however has evidence of CO2 retention up to 70, will continue BiPAP treatment - patient counseled on continuing BiPAP since CO2 still high (2) Fracture, scapula closed: Code(s): S42.109A - Fracture of unspecified part of scapula, unspecified shoulder, initial encounter for closed fracture Status: Acute Assessment and Plan: -patient with actual bilateral shoulder pain, x-ray showing questionable acute versus subacute right scapular fracture, consistent with history of frequent falls -continue pain medications -ortho consult pending -PT OT consult -fall precautions (3) Generalized weakness: Code(s): R53.1 - Weakness Status: Acute Assessment and Plan: patient has generalized weakness. Could be secondary to arthritis in the spine. CT head was negative for any acute findings. She does have resting tremors in upper extremities which could also be from weakness. Would recommend outpatient follow-up with Neurology to rule out Parkinson's disease. At this time will continue PT and OT Plan patient may need placement. Pending PT and OT evaluation Subjective Date/time seen: 10/03/22 10:20 Interval history: patient feels much better today. Pain is much better Review of Systems Review of Systems: no fever or weight loss no vision changes, no eye discharge no throat pain, no hoarseness, no lymphadenopathy no chest pain, no palpitations Chronic coughing, no wheezing no abdominal pain, no diarrhea, no nausea, no vomiting no dysuria, no vaginal discharge no leg swelling, no edema no suicidal or homicidal ideation Exam Narrative: general- awake, alert, oriented, no distress heent- perrl, no nystagmus, no throat swelling, no dicharge chest-course breath sounds, no wheezes, rales on left lower base, no crackles heart- s1, s2, regular rate and rhythm, no gallops or murmurs abdomen- soft, bowel sounds heard, no rebound or tenderness extremities- no edema or cyanosis, arthritic changes in both hands psych- no suicidal or homicidal ideation neuro- moves all extremities, no focal neurologic deficit, mentation intact, motor function 3 x 5 in bilateral upper and lower extremities, resting tremor in upper extremities Objective Data Vital Signs Vital Signs: Vital Signs - 24 hr 10/02/22 12:00 10/02/22 12:00 10/02/22 12:00 Temperature 98.3 F Pulse Rate 89 86 89 Respiratory Rate 22 H 10 L Blood Pressure 109/63 Pulse Oximetry 99 99 Oxygen Delivery Nasal Cannula Oxygen Flow Rate 4 Fraction of Inspired Oxygen 10/02/22 14:00 10/02/22 15:54 10/02/22 16:00 Temperature 98.1 F Pulse Rate 92 82 87 Respiratory Rate 16 20 Blood Pressure 96/64 L Pulse Oximetry 92 94 Oxygen Delivery Nasal Cannula Oxygen Flow Rate 4 Fraction of Inspired Oxygen 10/02/22 16:00 10/02/22 18:00 10/02/22 20:00 Temperature 97.8 F Pulse Rate 88 83 81 Respiratory Rate 20 Blood Pressure 104/60 Pulse Oximetry 92 Oxygen Delivery Oxygen Flow Rate Fraction of Inspired Oxygen 10/02/22 20:00 10/02/22 20:00 10/02/22 22:00 Temperature Pulse Rate 118 H 82 Respiratory Rate Blood Pressure Pulse Oximetry 94 Oxygen Delivery Nasal Cannula Oxygen Flow Rate 4 Fraction of Inspired Oxygen 10/02/22 22:05 10/02/22 23:53 10/03/22 00:00 Temperature 96.8 F L Pulse Rate 72 69 Respiratory Rate 15 18 Blood Pressure 115/59 L Pulse Oximetry 97 100 100 Oxygen Delivery BiPAP BiPAP Oxygen Flow Rate Fraction of Inspir
[2022-10-03] MEDS: oxyCODONE/ACETAMINOPHEN (*CRX) 5-325 MG TABLET 1 TABLET PO ×2 (10:24→17:03)
[2022-10-03] MEDS: CITALOPRAM HYDROBROMIDE 20 MG TABLET PO (10:25)
[2022-10-03] MEDS: FUROSEMIDE 20 MG TABLET PO (10:25)
[2022-10-03] MEDS: FERROUS SULFATE 324 MG TABLET PO (10:25)
[2022-10-03] MEDS: CLOPIDOGREL BISULFATE 75 MG TABLET PO (10:25)
[2022-10-03] MEDS: PANTOPRAZOLE 40 MG TABLET PO (10:26)
[2022-10-03] MEDS: MEMANTINE 5 MG TABLET PO ×2 (10:34→20:13)
[2022-10-03] MEDS: ENOXAPARIN 40 MG/0.4 ML SYRINGE SUB-Q (10:35)
--- NOTE | 2022-10-03 10:45 | PM.CNOR ---
Assessment and Plan Assessment and plan (1) Right arm pain: Code(s): M79.601 - Pain in right arm Status: Chronic Assessment and Plan: 87-year-old female who has episodic right arm pain which I believe is secondary to a neurogenic cause. Prior C-spine surgery with instrumentation noted on the clavicle film. She is already in pain management for this. No further intervention needed. Discontinue sling. Although no formal follow-up has been made for this I would be happy to address recurrent concerns in the future. History of Present Illness HPI Consult date: 10/03/22 Chief complaint: Possible clavicle fracture Narrative: 87-year-old female who is admitted for exacerbation of COPD. She was told at an outside facility that she had a right clavicle fracture and has been in a sling. She said that she had been having some pain in that arm that went from her shoulder clear down to her hand. She has been in a sling. Most so that is pretty much gone. Of note is prior neck surgery and she is in pain management. Review of Systems Review of Systems: no fever or weight loss no vision changes, no eye discharge no throat pain, no hoarseness, no lymphadenopathy no chest pain, no palpitations Chronic coughing, no wheezing no abdominal pain, no diarrhea, no nausea, no vomiting no dysuria, no vaginal discharge no leg swelling, no edema no suicidal or homicidal ideation PMFSH Past Medical History Medical History Acute exacerbation of chronic obstructive airways disease Chronic GERD COPD (chronic obstructive pulmonary disease) Depression with anxiety Hiatal hernia Surgical History Surgical History H/O bladder repair surgery H/O breast surgery H/O colonoscopy H/O esophagogastroduodenoscopy H/O foot surgery H/O hernia repair H/O Spinal surgery H/O wrist surgery H/O: hysterectomy Hx of cataract extraction Hx of cholecystectomy S/P cervical spinal fusion S/P tonsillectomy Family History Family History Father Bladder cancer Mother Hypertension Depression Sibling Asthma Hypertension Depression Grandparent Hypertension Heart disease Cerebrovascular accident Grandparent Alcoholism Lung cancer Social History Social History Social History: The patient is and has 3 children. 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 She tells me she was a former smoker. She chronically wears oxygen at home. She does not have a durable power insurance attorney for healthcare. She has an alcoholic beverage approximately 4 times per week. Code status full code Smoking packs per day: 1 Smoking cigarettes per day: 20.0 Smoking status: Former smoker Second hand tobacco smoke exposure: No Alcohol intake: current Drinks per week: 4 Substance use: never Substance use type: does not use Lack of Transportation: No Lack of Food: Never True Current Housing: I Have Housing Concerned About Future Housing: No Difficulty Paying Gas/Electric Bills: No Difficulty Paying for Meds: No Currently Unemployed: No Education: Associate Degree Difficulty w/ Childcare or Family Care: No Spiritual care concerns: No Meds Home Medications and Allergies Home Medications Medication Instructions Recorded Confirmed Type amitriptyline 25 mg tablet 25 mg PO QHS 10/23/20 10/01/22 History citalopram 20 mg tablet 20 mg PO DAILY 10/23/20 10/01/22 History furosemide 20 mg tablet 20 mg PO DAILY 10/23/20 10/01/22 History oxycodone-acetaminophen 5 mg-325 1 tablet PO Q6H PRN Pain (Scale 10/23/20 10/01/22 History mg tablet Score 7-10) pantoprazole 40 mg tablet,delayed 40 mg PO QAM 10/23/20 10/01/22 History release atorvastatin 80 mg tablet 80 mg PO
[2022-10-03] MEDS: PREGABALIN (*CRX) 50 MG CAPSULE 100 MG PO ×3 (12:05→17:03)
--- NOTE | 2022-10-03 15:15 | PCOTNOTE ---
Attempted to see pt. for occupational therapy evaluation. Pt. currently changing rooms
--- NOTE | 2022-10-03 15:21 | PC.NURSE ---
This patient, Jazmin Bullard, was transferred to [[facility] ] on 10/03/22 at 1521. Personal belongings sent with patient. Report given to [Diana ]. Appropriate documentation sent with patient.
[2022-10-03] MEDS: PRAMIPEXOLE 0.5 MG TABLET PO (20:12)
[2022-10-03] MEDS: AMITRIPTYLINE HCL 25 MG TABLET PO (20:12)
[2022-10-03] MEDS: ATORVASTATIN 40 MG TABLET 80 MG PO (20:12)
[2022-10-03] MEDS: AMOXICILLIN/CLAVULANATE K 875-125 MG TAB 1 TABLET PO (20:13)
[2022-10-04] MEDS: oxyCODONE/ACETAMINOPHEN (*CRX) 5-325 MG TABLET 1 TABLET PO ×2 (03:33→09:39)
[2022-10-04 06:00] VITALS: BP 111/67; PULSE 63; RESP 20; TEMP 36.4; O2SAT 92
[2022-10-04] MEDS: PANTOPRAZOLE 40 MG TABLET PO (08:31)
[2022-10-04] MEDS: PREGABALIN (*CRX) 50 MG CAPSULE 100 MG PO ×2 (08:32→12:00)
[2022-10-04] MEDS: CLOPIDOGREL BISULFATE 75 MG TABLET PO (08:32)
[2022-10-04] MEDS: AMOXICILLIN/CLAVULANATE K 875-125 MG TAB 1 TABLET PO (08:32)
[2022-10-04] MEDS: ENOXAPARIN 40 MG/0.4 ML SYRINGE SUB-Q (08:32)
[2022-10-04] MEDS: MEMANTINE 5 MG TABLET PO (08:32)
[2022-10-04] MEDS: FUROSEMIDE 20 MG TABLET PO (08:32)
[2022-10-04] MEDS: CITALOPRAM HYDROBROMIDE 20 MG TABLET PO (08:32)
[2022-10-04] MEDS: FERROUS SULFATE 324 MG TABLET PO (08:32)
[2022-10-04 08:45] VITALS: O2SAT 92
--- NOTE | 2022-10-04 13:01 | PM.IMPN ---
Progress Note: A&P Assessment and Plan (1) Pneumonia: Qualifiers: Laterality: left Lung location: lower lobe of lung Pneumonia type: due to unspecified organism Qualified Code(s): J18.9 - Pneumonia, unspecified organism Code(s): J18.9 - Pneumonia, unspecified organism Status: Acute Assessment and Plan: Continue antibiotics through 10/08 (2) Acute hypercapnic respiratory failure: Code(s): J96.02 - Acute respiratory failure with hypercapnia Status: Acute Assessment and Plan: Continue steroids through 10/08 ABG 10/04 (3) Fracture, scapula closed: Code(s): S42.109A - Fracture of unspecified part of scapula, unspecified shoulder, initial encounter for closed fracture Status: Acute Assessment and Plan: -patient with actual bilateral shoulder pain, x-ray showing questionable acute versus subacute right scapular fracture, consistent with history of frequent falls -continue pain medications -ortho consult noted -PT OT (4) Generalized weakness: Code(s): R53.1 - Weakness Status: Acute Assessment and Plan: patient has generalized weakness. Likely due to acute illness, deconditioning, arthritis. CT head was negative for any acute findings. [facility] Discussed with patient, son, and sister at bedside Subjective Date/time seen: 10/04/22 13:01 Interval history: Feeling better. Not shaking. No fever. Appetite. Sill hearing some music occasionally. No chest pain. BHAKTA Cough nonproductive No swelling No gi/gu issues No ABNL bleeding Review of Systems Review of Systems: All systems reviewed & are unremarkable except as noted in HPI and below Exam Narrative: general- awake, alert, oriented, no distress heent- perrl, no nystagmus, no throat swelling, no dicharge chest-course breath sounds, no wheezes, L basilar crackles worse than right heart- s1, s2, regular rate and rhythm, 2/6 MAULIK RUSB abdomen- soft, bowel sounds heard, no rebound or tenderness extremities- no edema or cyanosis neuro- moves all extremities, no focal neurologic deficit, mentation intact, no tremor Objective Data Vital Signs Vital Signs: Vital Signs - 24 hr 10/03/22 16:05 10/03/22 20:00 10/03/22 22:00 Temperature 97.7 F Pulse Rate 108 H Respiratory Rate 20 Blood Pressure 122/82 Pulse Oximetry 92 92 Oxygen Delivery Nasal Cannula Nasal Cannula Oxygen Flow Rate 4 2 10/03/22 22:06 10/04/22 06:00 10/04/22 08:00 Temperature 97.6 F Pulse Rate 98 63 Respiratory Rate 20 Blood Pressure 111/67 Pulse Oximetry 94 92 Oxygen Delivery BiPAP BiPAP Oxygen Flow Rate 10/04/22 08:45 Temperature Pulse Rate Respiratory Rate Blood Pressure Pulse Oximetry 92 Oxygen Delivery Nasal Cannula Oxygen Flow Rate 4 Intake/Output Intake/Output: Intake & Output 10/01/22 10/02/22 10/03/22 10/04/22 23:59 23:59 23:59 23:59 Intake Total 50 1270 1360 632 Output Total 500 1750 Balance 50 770 -390 632 Meds/Results Medications: Active Medications Generic Name Dose Route Start Last Admin Trade Name Freq PRN Reason Stop Dose Admin Acetaminophen 650 mg 10/01/22 22:54 10/02/22 14:17 Acetaminophen 325 Mg Tablet PO 650 mg Q4H PRN Administration Mild Pain (1-3) or Fever Al Hydrox/Mg Hydrox/Simethicone 30 ml 10/01/22 22:54 Mag Hydrox/Al Hydrox/Simeth 30 Ml Udc PO QID PRN Dyspepsia Amitriptyline HCl 25 mg 10/02/22 21:00 10/03/22 20:12 Amitriptyline Hcl 25 Mg Tablet PO 25 mg QHS MASTER Administration Amoxicillin/Clavulanate Potassium 1 tablet 10/03/22 21:00 10/04/22 08:32 Amoxicillin/Clavulanate K 875-125 Mg Tab PO 10/06/22 09:01 1 tablet Q12HR MASTER Administration Atorvastatin Calcium 80 mg 10/02/22 21:00 10/03/22 20:12 Atorvastatin 40 Mg Tablet PO 80 mg HS MASTER Administration Bisacodyl 10 mg 10/03/22 09:57 Bisacodyl 5 Mg Tablet Ec PO
--- NOTE | 2022-10-04 13:30 | PM.DS ---
DS: Admitting Diagnosis Discharge Date 10/04/2022 Admitting Diagnosis Pneumonia with respiratory failure DS: Discharge Diagnosis Discharge Diagnosis (1) Pneumonia: Qualifiers: Laterality: left Lung location: lower lobe of lung Pneumonia type: due to unspecified organism Qualified Code(s): J18.9 - Pneumonia, unspecified organism Code(s): J18.9 - Pneumonia, unspecified organism Status: Acute Assessment and Plan: Continue antibiotics through 10/08 (2) Acute hypercapnic respiratory failure: Code(s): J96.02 - Acute respiratory failure with hypercapnia Status: Acute Assessment and Plan: D/c Bipap as she tolerates it poorly and continue 4L oxygen (her baseline) ABG 10/04 PCO2 60, PO2 76 on 4L (3) Generalized weakness: Code(s): R53.1 - Weakness Status: Acute Assessment and Plan: patient has generalized weakness. Likely due to acute illness, deconditioning, arthritis. CT head was negative for any acute findings. To [facility] today for ongoing PT/OT Discussed with patient, son, and sister at bedside (4) Chronic anemia: Code(s): D64.9 - Anemia, unspecified Status: Acute Assessment and Plan: Stable as of 10/02/22 Hgb 9.0 DS: Summary Hospital Course Hospital Course: Admitted 10/01/2022 with increased weakness and arm twitching. Found to have pulmonary infiltrate on chest x-ray. Treated with ceftriaxone and azithromycin. PO2 was in the 60s and pCO2 in the 70s on her chronic 4 L of oxygen by nasal cannula. BiPAP at night was added. She tolerated poorly. Said was exhausting and she would rather do without it. White count improved from 12.9-10.3 k. She was tolerating physical therapy. She was alert and oriented although she did complain some intermittent music that she heard in her years. No voices or visual hallucinations. She still required considerable assistance for all ADLs including set up for feeding but was able to feed herself. She was accepted [facility] and was transferred there by car with her son and sister. Time Spent with Patient Time attestation: Total time spent providing and/or coordinating discharge services: Exam Narrative: general- awake, alert, oriented, no distress heent- perrl, no nystagmus, no throat swelling, no dicharge chest-course breath sounds, no wheezes, L basilar crackles worse than right heart- s1, s2, regular rate and rhythm, 2/6 MAULIK RUSB abdomen- soft, bowel sounds heard, no rebound or tenderness extremities- no edema or cyanosis neuro- moves all extremities, no focal neurologic deficit, mentation intact, no tremor DS: Data Data Completed and Pending Labs on day of discharge: Preliminary micro results at discharge 10/01/22 21:38 Blood Culture - Preliminary Blood 10/01/22 21:48 Blood Culture - Preliminary Blood Discharge Plan Discharge Consulting providers: Agata Way; Ned Brannon Discharging Clinician: Pete Barron Patient Disposition: Inpatient Rehab Facility Activity: no straining and no driving Diet: heart healthy Patient Instructions: Pneumonia (DC), Urinary Tract Infection in Older Adults (DC) Stand Alone Forms: General Discharge Information Discharge Medications: New bisacodyl [Laxative (bisacodyl)] 5 mg Tablet,Delayed Release (Dr/Ec) 10 mg PO DAILY PRN (Reason: Constipation) Qty: 7 0RF acetaminophen [Mapap (acetaminophen)] 325 mg Tablet 650 mg PO Q4H PRN (Reason: Mild Pain (1-3) Or Fever) Qty: 60 0RF alum-mag hydroxide-simeth [Mag-Al Plus] 200-200-20 mg/5 mL Suspension 30 ml PO QID PRN (Reason: Dyspepsia) Qty: 355 0RF magnesium hydroxide [Milk of Magnesia] 400 mg/5 mL Suspension 30 ml PO DAILY PRN (Reason: Constipation) Qty: 355 0RF amoxicillin-pot clavulanate 875-125 mg tablet 1 tablet PO Q12H Qty: 9 0RF Continued pantoprazole 40 mg tablet,delayed release (DR/EC) 4
[2022-10-04 13:46] VITALS: BP 102/65; PULSE 76; RESP 20; TEMP 36.5; O2SAT 96
[2022-10-04 14:36] LABS: Alveolar/Arterial O2 Gradient 52.2 mmHg; Fractional Inspired Oxygen 28 %; HCO3 ABG 37.5 mEq/l (22.0-26.0); Oxygen Content ABG 14.8 %vol (16.0-22.0); Oxygen Saturation ABG 95.1 % (95.0-100.0); Oxyhemoglobin 93.8 % THb (90.0-100.0); PO2 ABG 76.6 mmHg (80.0-100.0); PO2 FiO2 Ratio Arterial Blood 2.74 %; Total Hemoglobin 11.2 g/dL (12.0-18.0); pH ABG 7.414 (7.350-7.450)
[2022-10-04 14:38] LABS: Device NASAL CANNULA; Modified Allen's Test Pass; Site Drawn LEFT RADIAL
[2022-10-10 21:18] LABS: Red Blood Cell Folate >1000 ng/mL RBC (>280)
== END 2022-10-04 14:40 | DRG 193 ==
LOC: ANHED 18:24 → ANHIMU 21:14 → ANH3MEDSUR 10-04 13:34 → ANHIMU 10-06 16:41
PROVIDERS: Emergency Medicine; Hospitalist; Admitting Provider Internal Medicine; Emergency Provider Physician Assistant; PCP Physician Assistant; Visit Provider Internal Medicine
DX: J18.9 Pneumonia, unspecified organism (principal); J96.02 Acute respiratory failure with hypercapnia; N39.0 Urinary tract infection, site not specified; J44.1 Chronic obstructive pulmonary disease with (acute) exacerbation; B96.1 Klebsiella pneumoniae [K. pneumoniae] as the cause of diseases classified elsewhere; M79.601 Pain in right arm; R53.1 Weakness; D64.9 Anemia, unspecified; F41.8 Other specified anxiety disorders; K21.9 Gastro-esophageal reflux disease without esophagitis; W19.XXXA Unspecified fall, initial encounter; Z99.81 Dependence on supplemental oxygen; Z20.822 Contact with and (suspected) exposure to COVID-19; Z90.710 Acquired absence of both cervix and uterus; Z79.02 Long term (current) use of antithrombotics/antiplatelets; Z98.49 Cataract extraction status, unspecified eye; Z90.49 Acquired absence of other specified parts of digestive tract; Z98.1 Arthrodesis status; Z87.891 Personal history of nicotine dependence
CPT/HCPCS: 36415; 36600; 70450; 71046; 73000; 80048; 80053; 81001; 82306; 82375; 82550; 82607; 82747; 82805; 83050; 83735; 83880; 84484; 85025; 85055; 87040; 87077; 87086; 87088; 87186; 87636; 93005; 94003; 94640; 96365; 96375; 97110; 97161; 97165; 97530; 97535; 99285; A9270; G0378; J0456; J0696; J1650; J7030

== ENCOUNTER 2022-11-16 18:34 | Inpatient (IN) | payer MEDICARE, SELFPAY ==
[2022-11-16] VITALS (24 sets, daily range): BP systolic 80–100; BP diastolic 52–81; PULSE 81–108; RESP 9–23; TEMP 36.5–36.6; O2SAT 85–95; BMI 32.1
--- NOTE | ~2022-11-16 | CT_ITS ---
Non-contrast Head CT History: Head injury COMPARISON: 10/02/2022 Technique: Axial non-contrast imaging of the brain was performed. Dose reduction technique was used on this scan by utilizing automated exposure control and iterative reconstruction technique. The dose -length product (DLP) was 605.33 mGy-cm. Findings: There is no evidence of intracranial hemorrhage, mass lesion, or acute infarct. Brain par enchyma appears normal. The ventricles and subarachnoid spaces are normal in size. The calvarium ap pears normal. The visualized paranasal sinuses and mastoid air cells are clear. Impression: No significant abnormality seen. Reviewed, dictated and finalized at location . Impression: No significant abnormality seen.
--- NOTE | ~2022-11-16 | XR_ITS ---
AP and oblique views of the right ribs Clinical History: Pain Findings: Probable minimally displaced fracture of the posterior right seventh rib. Lungs are clear, without focal consolidation or pleural effusion. Cardiomediastinal contour is within normal limits. S oft tissues are unremarkable. Impression: Probable minimally displaced fracture of the posterior right seventh rib. Reviewed, dictated and finalized at location . Impression: Probable minimally displaced fracture of the posterior right seventh rib.
--- NOTE | ~2022-11-16 | XR_ITS ---
Portable chest x-ray Comparison: 10/01/2022 Clinical History: Rib fracture Findings: There is bibasilar airspace disease. Cardiomediastinal silhouette is stable. Bones and so ft tissues are unremarkable radiographically. Impression: Patchy bibasilar airspace disease could reflect atelectasis versus pneumonia. Correlate clinically. Rib fractures seen on recent CT scan are not clearly visible radiographically. Reviewed, dictated and finalized at [facility]. Impression: Patchy bibasilar airspace disease could reflect atelectasis versus pneumonia. C orrelate clinically. Rib fractures seen on recent CT scan are not clearly visible radiographically.
--- NOTE | ~2022-11-16 | MR_ITS ---
EXAMINATION: MR lumbar spine wo con DATE: 11/17/2022 13:49 INDICATION: Compression fracture TECHNIQUE: Magnetic resonance imaging (MRI) of the lumbar spine was performed without intravenous con trast. Sequences included sagittal T2-weighted FSE, sagittal T2-weighted FS FSE, sagittal T1-weighted FSE, and axial T2-weighted FSE. COMPARISON: 01/06/2022 FINDINGS: 6 degrees lumbar dextrocurvature. 3 mm retrolisthesis L1 on L2. 5 mm retrolisthesis L2 on L3, 2 mm re trolisthesis L4 on L5 and 6 mm anterolisthesis L5 on S1. Unchanged chronic T11 inferior endplate comp ression fracture with 40% anterior vertebral body height loss. Unchanged chronic T12 burst fracture w ith unchanged up to 40% vertebral body height loss, 2-3 mm retropulsion of the superior posterior wal l of the vertebral body and with central low signal intensity changes of prior vertebroplasty. Unchan ged chronic L1 burst fracture with 80% anterior to central vertebral body height loss and 4 mm retrop ulsion at the superior posterior wall. Unchanged chronic L2 burst fracture with 60% anterior to centr al vertebral body height loss and 3 mm retropulsion along the inferior posterior wall. Schmorl's node along the inferior endplate of L3. Severe disc height loss with suggestion of fibrofatty degenerativ e endplate changes at L5-S1. Moderate disc height loss at L2-L3. Mild to moderate disc height loss at L4-L5. Mild disc height loss at T11-T12 and T12-L1. The conus medullaris terminates at L1. There is normal signal in the caudal spinal cord. Bilateral T2 hyperintense renal cysts measuring up to 1.2 cm on the right incompletely visualized left renal cyst measures at least 2.6 cm. Paravertebral soft ti ssues are otherwise unremarkable. The following disc levels are specifically discussed: T12-L1: Disc is bulging slightly beyond the retropulsed L1 superior endplate margin. There is severe bilateral facet joint osteoarthritis. There is minimal bilateral neural foraminal stenosis. There is mild central canal stenosis. L1-L2: Disc is bulging. There is severe bilateral facet joint osteoarthritis. There is moderate bilat eral neural foraminal stenosis. There is mild central canal stenosis. L2-L3: Disc is bulging with annular fissure. In addition there is retropulsion of the inferior endpla te of L2. There is severe bilateral facet joint osteoarthritis. There is moderate bilateral neural fo raminal stenosis. There is mild central canal stenosis. L3-L4: Disc is bulging with annular fissure. There is hypertrophy of the ligamentum flavum. There is severe bilateral facet joint osteoarthritis. There is moderate bilateral neural foraminal stenosis. There is moderate central canal stenosis. L4-L5: Disc is bulging with annular fissure. There is hypertrophy of the ligamentum flavum. There is severe bilateral facet joint osteoarthritis. There is moderate bilateral neural foraminal stenosis. T here is moderate central canal stenosis. L5-S1: Disc is bulging with annular fissure. There is hypertrophy of the ligamentum flavum. There is severe bilateral facet joint osteoarthritis. There is moderate bilateral neural foraminal stenosis. T here is mild to moderate central canal stenosis. IMPRESSION 1. Mild interval progression in severe lumbar spondylosis. 2. Stable appearance of chronic T11-L2 compression and burst fractures with prior T12 vertebroplasty. Reviewed, dictated and finalized at location B. IMPRESSION 1. Mild interval progression in severe lumbar spondylosis. 2. Stable appearance of chronic T11-L2 compression and burst fractures with nora or T12 vertebroplasty.
--- NOTE | ~2022-11-16 | CT_ITS ---
Noncontrast CT scan of the cervical spine Technique: Multiple contiguous axial [address] images of the cervical spine were obtained and rec onstructed in 2D sagittal and coronal planes on the acquisition scanner. Dose reduction technique was used on this scan by utilizing automated exposure control, adjustment of the mA and/or kV according to patient size. The dose-length product (DLP) was 454.88 mGy-cm. Clinical History: Pain Findings: No fracture or subluxation identified. There is mild reversal normal cervical lordosis. The re is posterior fusion hardware extending from C3 through C6, bilateral rods and transpedicular screw s present. There are laminectomy defects at C3, C4, C5, and C6. There is diffuse, severe degenerative disc narrowing throughout the cervical spine, with fusion across the C6-C7 disc space. There is prob able right neural foraminal narrowing at C3-C4. There is bilateral neural foraminal narrowing probabl y present at C4-C5, C5-C6. No prevertebral soft tissue swelling. Impression: No fracture or subluxation of the cervical spine. Posterior fusion from C3 through C6, with associated hardware and laminectomy defects, as detailed ab ove. Degenerative spondylitic changes, as above. Reviewed, dictated and finalized at location . Impression: No fracture or subluxation of the cervical spine. Posterior fusion from C3 through C6, with associated hardware and laminectomy d efects, as detailed above. Degenerative spondylitic changes, as above.
--- NOTE | ~2022-11-16 | CT_ITS ---
Clinical Indication: Status post fall, flank pain CT Scan of the Chest, Abdomen, and Pelvis with Contrast: Technique: Contiguous sections were acquired throughout the chest, abdomen, and pelvis after intraven ous administration of 100 cc of Omnipaque 350. Dose reduction technique was used on this scan by gisella marieing automated exposure control and iterative reconstruction technique. The dose-length product (DL P) was 1114.92 mGy-cm. COMPARISON: 03/03/2022 Findings: There is no evidence of any significant mediastinal, hilar or axillary lymphadenopathy. No aortic ane urysm or dissection seen. No central pulmonary embolus identified. Large hiatal hernia present. There is no evidence of pleural or pericardial effusion. There is probable bibasilar atelectatic change, less likely pneumonia.. There are acute fractures of the posterior right 11th and 12th ribs. There are also an acute, minimal ly displaced fracture of the right transverse process of L3 (series 3 image 122 for example). There a re compression fractures of T11, L1, L2, with vertebroplasty cement at T12. There is mild intrahepatic biliary dilatation, dilated common bile duct, which may be related to prio r cholecystectomy. The spleen, adrenals and kidneys are within normal limits. There is a 1.1 cm cysti c lesion at the pancreatic body. There are atherosclerotic calcifications of the aorta. No lymphaden opathy. No bowel obstruction or bowel wall thickening. There is no evidence to suggest acute appendicitis. Urinary bladder is unremarkable. No adnexal mass evident. No ascites. Impression: Acute fractures of the right 11th and 12th ribs, and the right transverse process of L3. Age-indeterminate compression fractures of L1 and L2. Additional compression fractures of T11 and T12 are stable since 03/03/2022. Probable bibasilar atelectatic change, less likely pneumonia. Correlate clinically. Large hiatal hernia, unchanged. Intrahepatic and extra hepatic biliary dilatation is probably related to prior cholecystectomy. 1.1 cm cystic lesion in the pancreatic body, most likely a low malignant potential lesion. Consider f ollow-up CT in one year. Reviewed, dictated and finalized at location M. Impression: Acute fractures of the right 11th and 12th ribs, and the right transverse proce ss of L3. Age-indeterminate compression fractures of L1 and L2. Additional compression fr actures of T11 and T12 are stable since 03/03/2022. Probable bibasilar atelectatic change, less likely pneumonia. Correlate clinica lly. Large hiatal hernia, unchanged. Intrahepatic and extra hepatic biliary dilatation is probably related to prior cholecystectomy. 1.1 cm cystic lesion in the pancreatic body, most likely a low malignant potent ial lesion. Consider follow-up CT in one year.
--- NOTE | ~2022-11-16 | XR_ITS ---
AP view of the pelvis and AP and lateral views of the right hip Clinical history: Pain Findings: No acute fracture or dislocation is seen. Patient is status post prior ORIF for now healed fracture of the right femoral neck. Soft tissues are unremarkable. Impression: No acute fracture or dislocation seen. Status post prior ORIF for now healed fracture deformity of the right femoral neck. Reviewed, dictated and finalized at location . Impression: No acute fracture or dislocation seen. Status post prior ORIF for now healed fracture deformity of the right femoral n niki.
--- NOTE | 2022-11-16 19:24 | ECG_ITS ---
Measurements Intervals [place] Rate: 72 P: 77 MN: 156 QRS: 2 QRSD: 90 T: 26 QT: 378 QTc: 416 Interpretive Statements SINUS RHYTHM WITH OCCASIONAL SUPRAVENTRICULAR PREMATURE COMPLEXES WARNING: DATA QUALITY MAY AFFECT INTERPRETATION NONSPECIFIC T-WAVE ABNORMALITY ABNORMAL ECG COMPARED TO ECG 10/01/2022 17:42:36 NO SIGNIFICANT CHANGES Electronically Signed On 11-17-2022 10:24:32 CDT by Tato Sherwood M.D.
--- NOTE | 2022-11-16 19:26 | ED.FALL ---
HPI - Fall General Chief Complaint: Fall Stated Complaint: GLF angelina flank pain Time Seen by Provider: 11/16/22 19:01 Source: patient, family, RN notes reviewed and old records reviewed Mode of arrival: EMS Limitations: no limitations History of Present Illness HPI Narrative: This is an 87 year old female with history of COPD, chronic respiratory failure on 3 L NC who presents for evaluation of right flank pain s/p fall. Patient states she was making a sandwich when she fell. She thinks she tripped and this caused her to hit her right side on wheel of walker. She reports severe right flank pain. She denies LOC, headache or dizziness. She does not think she hit her head. She states her right leg is shortened due to previous surgery. She denies nausea, vomiting or diarrhea. She thinks she takes a blood thinner but she is not sure. She was discharged from hospital 1 month ago after being treated for pneumonia Related Data Home Medications Medication Instructions Recorded Confirmed citalopram 20 mg tablet 20 mg PO DAILY 10/23/20 11/16/22 furosemide 20 mg tablet 20 mg PO DAILY 10/23/20 11/16/22 oxycodone-acetaminophen 5 mg-325 1 tablet PO Q6H PRN Pain (Scale 10/23/20 11/16/22 mg tablet Score 7-10) pantoprazole 40 mg tablet,delayed 40 mg PO QAM 10/23/20 11/16/22 release atorvastatin 80 mg tablet 80 mg PO DAILY 03/04/22 11/16/22 clopidogrel 75 mg tablet 75 mg PO DAILY 03/04/22 11/16/22 memantine 5 mg tablet 5 mg PO BID 03/04/22 11/16/22 pramipexole 0.5 mg tablet (Mirapex) 0.5 mg PO HS 03/07/22 11/16/22 ferrous sulfate 325 mg (65 mg 325 mg PO DAILY 10/01/22 11/16/22 iron) tablet pregabalin 100 mg capsule 100 mg PO BID 10/01/22 11/16/22 C 250 mg-E 137.5 mg-zinc 12.5 1 cap PO BID 10/13/22 11/17/22 [id number] capsule (Lester Advanced AREDS2) albuterol sulfate 2.5 mg/3 mL 2.5 mg inhalation Q8H PRN wheezing 10/13/22 11/16/22 (0.083 %) solution for nebulization amitriptyline 25 mg tablet 25 mg PO QHS 10/13/22 11/16/22 biotin 5,000 mcg disintegrating 5,000 mcg PO DAILY 10/13/22 11/16/22 tablet calcium carbonate 300 mg (750 mg) 750 tablet PRN PRN Heartburn 10/13/22 11/16/22 chewable tablet (Antacid Extra Strength (calcium carb)) cholecalciferol (vitamin D3) 25 25 mcg PO DAILY 10/13/22 11/16/22 mcg (1,000 unit) capsule (Vitamin D3) fluticasone fur. 100 mcg-umeclid 1 inh inhalation DAILY 10/13/22 11/16/22 62.5 mcg-vilant 25 mcg inhalat.powder (Trelegy Ellipta) nystatin 100,000 unit/gram topical 1 applic topical DAILY 11/17/22 11/16/22 powder Allergies Allergy/AdvReac Type Severity Reaction Status Date / Time chlorpromazine Allergy Unknown Unknown Verified 11/16/22 18:51 [From Thorazine] diphenhydramine Allergy Unknown Unknown Verified 11/16/22 18:51 [From Benadryl] rofecoxib [From Vioxx] Allergy Unknown Unknown Verified 11/16/22 18:51 meperidine [From Demerol] Allergy Unknown Verified 11/16/22 18:51 zolpidem [From Ambien] Allergy Unknown Verified 11/16/22 18:51 Review of Systems Constitutional: Constitutional: Denies weakness Cardiovascular: Cardiovascular: Denies syncope, Denies rapid heart rate, Denies irregular heart rhythm, Denies leg edema and Reports dyspnea (chronic) Respiratory: Respiratory: Denies chest congestion, Denies hemoptysis, Denies excessive phlegm production and Denies dyspnea Gastrointestinal: Gastrointestinal: Denies abdominal pain, Denies hematochezia, Denies diarrhea and Denies vomiting Genitourinary: Genitourinary: Denies hematuria and Denies dysuria Musculoskeletal: Musculoskeletal: Reports back pain, Reports arthralgias, Denies joint swelling, Denies loss of height and Denies muscle weakness Neurologic: Denies syncope, Denies focal weakness and Denies weakness PMFSH Past Medical History Medical History Acute exacerbation of chronic obstructive airways disease Chronic GERD C
[2022-11-16] MEDS: ONDANSETRON INJ 4 MG/2 ML VIAL IV PUSH (20:05)
[2022-11-16] MEDS: SODIUM CHLORIDE 0.9% IV 500 ML 999 ML IV CONT (20:05)
[2022-11-16] MEDS: MORPHINE SULFATE (*CRX) 2 MG/ML INJ IV PUSH ×2 (20:06→22:14)
[2022-11-16 20:20] LABS: Basophils Absolute Auto 0.1 K/mm3 (0.0-0.1); Basophils Percent Auto 0.3 % (0.2-1.2); Eosinophils Absolute Auto 0.1 K/mm3 (0-0.3); Eosinophils Percent Auto 0.9 % (0-4.4); Hematocrit 37.2 % (37.0-47.0); Hemoglobin 10.9 g/dL (12.0-15.0); Immature Granulocyte Absolute 0.13 K/mm3 (0.00-0.031); Immature Granulocyte Percent A 0.9 % (0-0.5); Lymphocytes Absolute Auto 1.34 K/mm3 (0.9-3.2); Lymphocytes Percent Auto 8.9 % (18.3-44.2); Mean Corpuscular HGB Conc 29.3 g/dl (32-36); Mean Corpuscular Hemoglobin 26.7 pg (26-34); Mean Platelet Volume 9.8 fl (7.4-10.4); Monocytes Absolute Auto 0.8 K/mm3 (0.1-0.6); Neutrophils Absolute Auto 12.6 K/mm3 (1.3-6.7); Platelet Count Result 189 k/mm3 (150-375); Red Blood Count 4.09 M/mm3 (4.2-5.4); Red Cell Distribution Width 15.9 % (11.5-14.5)
[2022-11-16 20:26] LABS: Lactic Acid Reflex 1.6 mmol/L (0.7-2.0)
[2022-11-16 20:31] LABS: Alanine Aminotransferase 29 U/L (6-35); Albumin Level 3.5 g/dL (3.5-5.1); Alkaline Phosphatase 98 U/L (38-126); Aspartate Amino Transferase 39 U/L (14-36); Bilirubin,Total 0.4 mg/dL (0.2-1.3); Blood Urea Nitrogen 22 mg/dL (7-17); Calcium 8.4 mg/dL (8.4-10.2); Carbon Dioxide > 40 mmol/L (22-30); Chloride 93 mmol/L (98-107); Estimated Glomerular Filt Rate 59; Glucose 121 mg/dL (65-110); Partial Thromboplastin Time 27.2 SECONDS (22.3-36.8); Prothrombin Time 13.6 Seconds (11.1-14.7); Sodium 139 mmol/L (137-145)
[2022-11-16 21:33] LABS: Appearance Urine Clear (Clear); Bacteria Urine None Seen /hpf; Bilirubin Urine Negative (Negative); Blood Urine Negative (Negative); Color Urine Yellow (Yellow); Glucose Urine UA Negative (Negative); Ketones Urine Trace mg/dL (Negative); Leukocyte Esterase Ur 1+ LEU/UL (Negative); Nitrate Urine Negative (Negative); Protein Urine Trace mg/dL (Negative); RBC Urine 0-2 /hpf (0-2); Squamous Epithelial Cell Urine None seen /hpf (Few)
[2022-11-16 21:35] LABS: Add Urine Microscopic? YES
[2022-11-16] MEDS: SODIUM CHLORIDE 0.9% IV 1,000 ML 999 ML IV CONT (22:13)
--- NOTE | 2022-11-16 23:41 | ADMGEN ---
This patient, Jazmin Bullard, was admitted to IMU Room 201-01. Patient/family oriented to hospital policies and general routines including ID bracelet, bed and alarms, visiting hours, pain management, procedures, bathroom and other care routines, personal items, smoking policy, room service/diet, and visiting hours. Information on how to activate the Rapid Response Team has been discussed. Patient/Family are encouraged to report perceived risks to care and to ask questions if they do not understand what they are told or what they should do.
[2022-11-17] VITALS (27 sets, daily range): BP systolic 87–129; BP diastolic 57–89; PULSE 73–122; RESP 12–20; TEMP 35.6–36.3; O2SAT 80–97; BMI 32.1
[2022-11-17] MEDS: SODIUM CHLORIDE 0.9% IV 1,000 ML 125 ML IV CONT ×3 (00:57→20:09)
[2022-11-17 04:08] LABS: Basophils Percent Auto 0.2 % (0.2-1.2); Eosinophils Absolute Auto 0.1 K/mm3 (0-0.3); Eosinophils Percent Auto 0.8 % (0-4.4); Hematocrit 35.5 % (37.0-47.0); Immature Granulocyte Absolute 0.07 K/mm3 (0.00-0.031); Immature Granulocyte Percent A 0.6 % (0-0.5); Lymphocytes Absolute Auto 2.31 K/mm3 (0.9-3.2); Lymphocytes Percent Auto 20.4 % (18.3-44.2); Mean Corpuscular HGB Conc 28.2 g/dl (32-36); Mean Corpuscular Hemoglobin 26.2 pg (26-34); Mean Corpuscular Volume 92.9 fl (80-100); Mean Platelet Volume 10.3 fl (7.4-10.4); Monocytes Absolute Auto 0.9 K/mm3 (0.1-0.6); Monocytes Percent Auto 7.5 % (2.6-8.5); Neutrophils Percent Auto 70.5 % (45.5-73.1); Platelet Count Result 173 k/mm3 (150-375); Red Blood Count 3.82 M/mm3 (4.2-5.4); White Blood Count 11.3 K/mm3 (4.5-10.0)
[2022-11-17 04:22] LABS: Alanine Aminotransferase 26 U/L (6-35); Albumin Level 3.3 g/dL (3.5-5.1); Alkaline Phosphatase 80 U/L (38-126); Anion Gap 0 mmol/L (8-16); Aspartate Amino Transferase 36 U/L (14-36); Bilirubin,Total 0.4 mg/dL (0.2-1.3); Blood Urea Nitrogen 19 mg/dL (7-17); Calcium 7.6 mg/dL (8.4-10.2); Carbon Dioxide 38 mmol/L (22-30); Chloride 96 mmol/L (98-107); Estimated Glomerular Filt Rate > 60; Glucose 118 mg/dL (65-110); Potassium 4.7 mmol/L (3.4-5.0); Sodium 134 mmol/L (137-145)
[2022-11-17 04:40] LABS: Anisocytosis 1+ (NORMAL); Hypochromasia 2+ (NORMAL); Platelet Estimate Adequate (Adequate); Schistocytes None Seen (NORMAL)
[2022-11-17] MEDS: MORPHINE SULFATE (*CRX) 4 MG/ML INJ 2 MG IV PUSH ×4 (06:12→22:21)
[2022-11-17] MEDS: ALBUTEROL SULFATE NEB 2.5 MG/3 ML INH INHALATION ×3 (08:28→19:57)
[2022-11-17] MEDS: ATORVASTATIN 40 MG TABLET 80 MG PO (08:35)
[2022-11-17] MEDS: PREGABALIN (*CRX) 50 MG CAPSULE 100 MG PO ×2 (08:36→18:11)
[2022-11-17] MEDS: PANTOPRAZOLE 40 MG TABLET PO (08:36)
[2022-11-17] MEDS: CHOLECALCIFEROL 1,000 UNITS TABLET 1000 UNITS PO (08:36)
[2022-11-17] MEDS: OPTI-GEN TAB 1 TABLET PO ×2 (08:36→18:10)
[2022-11-17] MEDS: CLOPIDOGREL BISULFATE 75 MG TABLET PO (08:36)
[2022-11-17] MEDS: FERROUS SULFATE 325 MG TABLET DR PO (08:36)
[2022-11-17] MEDS: FUROSEMIDE 20 MG TABLET PO (08:40)
[2022-11-17] MEDS: CITALOPRAM HYDROBROMIDE 20 MG TABLET PO (09:22)
[2022-11-17] MEDS: MEMANTINE 5 MG TABLET PO ×2 (09:22→20:09)
[2022-11-17] MEDS: oxyCODONE/ACETAMINOPHEN (*CRX) 5-325 MG TABLET 1 TABLET PO ×2 (09:23→20:23)
--- NOTE | 2022-11-17 11:18 | PM.IMHP ---
H&P: HPI History of Present Illness Date/Time: 11/17/22 11:18 Chief Complaint: his is an 87 year old female with history? of COPD, chronic respiratory failure on 3 L NC who presents for evaluation of right flank pain s/p fall. Patient states she was making a sandwich when she fell. She thinks she tripped and this caused her to hit her right side on wheel of walker. ? She reports severe right flank pain.? ? She denies LOC, headache or dizziness. She does not think she hit her head.? ? She states her right leg is shortened due to previous surgery. ? ? She denies nausea, vomiting or diarrhea. She thinks she takes a blood thinner but she is not sure.? She was discharged from hospital 1 month ago after being treated for pneumonia Review of Systems Review of Systems: Ten point review systems negative except as stated in HPI PMFSH Past Medical History Medical History Acute exacerbation of chronic obstructive airways disease Chronic GERD COPD (chronic obstructive pulmonary disease) Depression with anxiety Hiatal hernia Surgical History Surgical History H/O bladder repair surgery H/O breast surgery H/O colonoscopy H/O esophagogastroduodenoscopy H/O foot surgery H/O hernia repair H/O Spinal surgery H/O wrist surgery H/O: hysterectomy Hx of cataract extraction Hx of cholecystectomy S/P cervical spinal fusion S/P tonsillectomy Family History Family History Father Bladder cancer Mother Hypertension Depression Sibling Asthma Hypertension Depression Grandparent Hypertension Heart disease Cerebrovascular accident Grandparent Alcoholism Lung cancer Social History Social History Social History: The patient is and has 3 children. 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 She tells me she was a former smoker. She chronically wears oxygen at home. She does not have a durable power commercial litigation attorney for healthcare. She has an alcoholic beverage approximately 4 times per week. Code status full code Smoking packs per day: 1 Smoking cigarettes per day: 20.0 Years smoked: 40 Smoking pack-years: 40.00 Smoking status: Former smoker Tobacco type: cigarettes Second hand tobacco smoke exposure: No Alcohol intake: current Drinks per week: 1 Substance use: never Substance use type: does not use Lack of Transportation: No Lack of Food: Never True Current Housing: I Have Housing Concerned About Future Housing: No Difficulty Paying Gas/Electric Bills: No Difficulty Paying for Meds: No Currently Unemployed: No Education: Associate Degree Difficulty w/ Childcare or Family Care: No Spiritual care concerns: No Meds Home Medications and Allergies Home Medications Medication Instructions Recorded Confirmed Type citalopram 20 mg tablet 20 mg PO DAILY 10/23/20 11/16/22 History furosemide 20 mg tablet 20 mg PO DAILY 10/23/20 11/16/22 History oxycodone-acetaminophen 5 mg-325 1 tablet PO Q6H PRN Pain (Scale 10/23/20 11/16/22 History mg tablet Score 7-10) pantoprazole 40 mg tablet,delayed 40 mg PO QAM 10/23/20 11/16/22 History release atorvastatin 80 mg tablet 80 mg PO DAILY 03/04/22 11/16/22 History clopidogrel 75 mg tablet 75 mg PO DAILY 03/04/22 11/16/22 History memantine 5 mg tablet 5 mg PO BID 03/04/22 11/16/22 History pramipexole 0.5 mg tablet (Mirapex) 0.5 mg PO HS 03/07/22 11/16/22 History ferrous sulfate 325 mg (65 mg 325 mg PO DAILY 10/01/22 11/16/22 History iron) tablet pregabalin 100 mg capsule 100 mg PO BID 10/01/22 11/16/22 History acetaminophen 325 mg tablet (Mapap 650 mg PO Q4H PRN Mild Pain (1-3) 10/04/22 11/16/22 Rx (acetaminophen)) Or Fever #60 tabs bisacodyl 5 mg tablet,delayed 10 mg PO DAILY PRN Constipat
[2022-11-17] MEDS: FLUTICASONE/UMECLIDIN/VILANTER 100-62.5-25 MCG ELLIPTA 1 PUFF INHALATION (12:22)
--- NOTE | 2022-11-17 15:14 | PCPTNOTE ---
Waiting for LSO brace to arrive prior to PT evaluation. Will follow.
[2022-11-17] MEDS: BISACODYL 5 MG TABLET EC 10 MG PO (18:10)
[2022-11-17] MEDS: AMITRIPTYLINE HCL 25 MG TABLET PO (20:09)
[2022-11-17] MEDS: PRAMIPEXOLE 0.5 MG TABLET PO (20:09)
[2022-11-18] VITALS (12 sets, daily range): BP systolic 92–116; BP diastolic 56–76; PULSE 89–113; RESP 14–20; TEMP 36.3–36.7; O2SAT 91–96
[2022-11-18 04:43] LABS: Basophils Percent Auto 0.3 % (0.2-1.2); Eosinophils Absolute Auto 0.1 K/mm3 (0-0.3); Hematocrit 29.5 % (37.0-47.0); Hemoglobin 8.4 g/dL (12.0-15.0); Immature Granulocyte Absolute 0.09 K/mm3 (0.00-0.031); Immature Granulocyte Percent A 0.8 % (0-0.5); Lymphocytes Absolute Auto 2.19 K/mm3 (0.9-3.2); Lymphocytes Percent Auto 19.8 % (18.3-44.2); Mean Corpuscular HGB Conc 28.5 g/dl (32-36); Mean Corpuscular Hemoglobin 26.1 pg (26-34); Mean Corpuscular Volume 91.6 fl (80-100); Mean Platelet Volume 10.2 fl (7.4-10.4); Monocytes Absolute Auto 0.6 K/mm3 (0.1-0.6); Monocytes Percent Auto 5.8 % (2.6-8.5); Neutrophils Percent Auto 72.3 % (45.5-73.1); Platelet Count Result 158 k/mm3 (150-375); Red Blood Count 3.22 M/mm3 (4.2-5.4); Red Cell Distribution Width 15.8 % (11.5-14.5); White Blood Count 11.1 K/mm3 (4.5-10.0)
[2022-11-18 05:01] LABS: Anion Gap 4 mmol/L (8-16); Blood Urea Nitrogen 16 mg/dL (7-17); Calcium 7.5 mg/dL (8.4-10.2); Carbon Dioxide 36 mmol/L (22-30); Chloride 97 mmol/L (98-107); Estimated Glomerular Filt Rate 47; Glucose 119 mg/dL (65-110); Potassium 4.4 mmol/L (3.4-5.0); Sodium 137 mmol/L (137-145)
[2022-11-18] MEDS: SODIUM CHLORIDE 0.9% IV 1,000 ML 125 ML IV CONT ×3 (06:00→21:56)
[2022-11-18] MEDS: FLUTICASONE/UMECLIDIN/VILANTER 100-62.5-25 MCG ELLIPTA 1 PUFF INHALATION (07:33)
[2022-11-18] MEDS: ALBUTEROL SULFATE NEB 2.5 MG/3 ML INH INHALATION ×3 (07:33→20:03)
[2022-11-18] MEDS: TOLNAFTATE 1% POWDER 45 GM BTL 1 APPLIC TOPICAL (08:23)
[2022-11-18] MEDS: CHOLECALCIFEROL 1,000 UNITS TABLET 1000 UNITS PO (08:23)
[2022-11-18] MEDS: ATORVASTATIN 40 MG TABLET 80 MG PO (08:23)
[2022-11-18] MEDS: PREGABALIN (*CRX) 50 MG CAPSULE 100 MG PO ×2 (08:23→17:44)
[2022-11-18] MEDS: FERROUS SULFATE 325 MG TABLET DR PO (08:23)
[2022-11-18] MEDS: CLOPIDOGREL BISULFATE 75 MG TABLET PO (08:23)
[2022-11-18] MEDS: OPTI-GEN TAB 1 TABLET PO ×2 (08:23→17:44)
[2022-11-18] MEDS: CITALOPRAM HYDROBROMIDE 20 MG TABLET PO (08:23)
[2022-11-18] MEDS: PANTOPRAZOLE 40 MG TABLET PO (08:23)
[2022-11-18] MEDS: MEMANTINE 5 MG TABLET PO ×2 (08:23→21:31)
[2022-11-18] MEDS: FUROSEMIDE 20 MG TABLET PO (08:23)
[2022-11-18] MEDS: oxyCODONE/ACETAMINOPHEN (*CRX) 5-325 MG TABLET 1 TABLET PO ×2 (08:30→17:44)
--- NOTE | 2022-11-18 08:31 | PCOTNOTE ---
Pt. still awaiting LSO brace prior to working with therapy. Nursing aware. Following.
--- NOTE | 2022-11-18 08:45 | PCPTNOTE ---
Pt. still awaiting back brace prior to working with therapy.Following.
--- NOTE | 2022-11-18 11:59 | PM.IMPN ---
Progress Note: A&P Assessment and Plan (1) Multiple rib fractures: Qualifiers: Encounter type: initial encounter Fracture type: closed Laterality: right Qualified Code(s): S22.41XA - Multiple fractures of ribs, right side, initial encounter for closed fracture Code(s): S22.49XA - Multiple fractures of ribs, unspecified side, initial encounter for closed fracture Status: Acute Assessment and Plan: Continue pain control Doing okay today. Respiratory status okay Repeat chest x-ray in the morning. (2) Fracture of transverse process of lumbar vertebra: Qualifiers: Encounter type: initial encounter Fracture type: closed Qualified Code(s): S32.009A - Unspecified fracture of unspecified lumbar vertebra, initial encounter for closed fracture Code(s): S32.009A - Unspecified fracture of unspecified lumbar vertebra, initial encounter for closed fracture Status: Acute Assessment and Plan: Monitor, pain control (3) Compression fracture: Status: Acute Assessment and Plan: Continue pain control PTOT. MRI pending, to see if these are acute or chronic. (4) Chronic respiratory failure: Code(s): J96.10 - Chronic respiratory failure, unspecified whether with hypoxia or hypercapnia Status: Acute (5) Chronic anemia: Code(s): D64.9 - Anemia, unspecified Status: Acute (6) Generalized weakness: Code(s): R53.1 - Weakness Status: Acute (7) Fall: Code(s): W19.XXXA - Unspecified fall, initial encounter Status: Acute (8) Depression with anxiety: Code(s): F41.8 - Other specified anxiety disorders Status: Chronic (9) Hyperlipidemia: Code(s): E78.5 - Hyperlipidemia, unspecified Status: Acute (10) Chronic pain: Code(s): G89.29 - Other chronic pain Status: Acute Subjective Date/time seen: 11/18/22 11:59 Interval history: no new complaints Exam Narrative: General: alert and oriented Psych: appropriate mood nad affect Eyes: PERRLA Neck: Trachea midline, no new lesions Skin: no changes Lungs: CTA Cardiac: Normal S1,S2, no MGR ABD: soft, nd, nt, nbs Ext: no new lesions, no cce Vasc: Pulses intact Objective Data Vital Signs Vital Signs: Vital Signs - 24 hr 11/17/22 12:00 11/17/22 12:00 11/17/22 14:14 Temperature 96.1 F L Pulse Rate 80 85 Respiratory Rate 14 18 Blood Pressure 129/69 Pulse Oximetry 80 L 95 Oxygen Delivery Nasal Cannula Oxygen Flow Rate 3 11/17/22 14:28 11/17/22 12:00 11/17/22 14:00 Temperature Pulse Rate 80 96 89 Respiratory Rate 18 Blood Pressure Pulse Oximetry Oxygen Delivery Oxygen Flow Rate 11/17/22 16:00 11/17/22 16:00 11/17/22 16:00 Temperature 96.5 F L Pulse Rate 95 122 H Respiratory Rate 12 Blood Pressure 100/61 Pulse Oximetry 94 95 Oxygen Delivery Nasal Cannula Oxygen Flow Rate 2 11/17/22 18:00 11/17/22 19:57 11/17/22 19:59 Temperature Pulse Rate 111 H 78 Respiratory Rate 18 Blood Pressure Pulse Oximetry 96 Oxygen Delivery Nasal Cannula Oxygen Flow Rate 3 11/17/22 20:15 11/17/22 20:00 11/17/22 21:15 Temperature 97.3 F L Pulse Rate 79 100 Respiratory Rate 18 20 18 Blood Pressure 97/59 L Pulse Oximetry 97 97 Oxygen Delivery Autopap Oxygen Flow Rate 11/17/22 20:00 11/17/22 20:00 11/17/22 22:00 Temperature Pulse Rate 101 H 104 H 98 Respiratory Rate 18 Blood Pressure Pulse Oximetry 97 Oxygen Delivery Nasal Cannula Oxygen Flow Rate 2 11/17/22 23:37 11/18/22 00:00 11/18/22 00:00 Temperature 97.2 F L Pulse Rate 119 H 113 H 113 H Respiratory Rate 16 16 Blood Pressure 87/57 L Pulse Oximetry 96 96 Oxygen Delivery Nasal Cannula Oxygen Flow Rate 2 11/18/22 03:13 11/18/22 02:00 11/18/22 04:00 Temperature 97.4 F L Pulse Rate 110 H 109 H 112 H Respiratory Rate 20 Blood Pressure 93/59 L
--- NOTE | 2022-11-18 15:29 | PC.NURSE ---
This patient, Jazmin Bullard, was transferred to [ [id number]] on 11/18/22 at 1529. Personal belongings sent with patient. Report given to [MARGRET Manjarrez @ [phone] ]. Appropriate documentation sent with patient.
[2022-11-18] MEDS: PRAMIPEXOLE 0.5 MG TABLET PO (21:31)
[2022-11-18] MEDS: AMITRIPTYLINE HCL 25 MG TABLET PO (21:31)
[2022-11-18] MEDS: ACETAMINOPHEN 325 MG TABLET 650 MG PO (21:34)
[2022-11-19] VITALS (14 sets, daily range): BP systolic 91–123; BP diastolic 56–79; PULSE 82–97; RESP 18–20; TEMP 35.7–36.6; O2SAT 90–100
[2022-11-19] MEDS: ALBUTEROL SULFATE NEB 2.5 MG/3 ML INH INHALATION ×4 (02:38→20:10)
[2022-11-19] MEDS: SODIUM CHLORIDE 0.9% IV 1,000 ML 125 ML IV CONT ×3 (05:37→23:26)
[2022-11-19 06:34] LABS: Basophils Percent Auto 0.2 % (0.2-1.2); Eosinophils Absolute Auto 0.2 K/mm3 (0-0.3); Hemoglobin 8.4 g/dL (12.0-15.0); Immature Granulocyte Absolute 0.08 K/mm3 (0.00-0.031); Immature Granulocyte Percent A 0.9 % (0-0.5); Immature Platelet Fraction Pct 4.5 % (0.9-11.2); Lymphocytes Absolute Auto 1.87 K/mm3 (0.9-3.2); Mean Corpuscular Volume 92.9 fl (80-100); Mean Platelet Volume 10.4 fl (7.4-10.4); Monocytes Absolute Auto 0.6 K/mm3 (0.1-0.6); Monocytes Percent Auto 7.1 % (2.6-8.5); Neutrophils Absolute Auto 5.8 K/mm3 (1.3-6.7); Neutrophils Percent Auto 67.8 % (45.5-73.1); Platelet Count Result 131 k/mm3 (150-375); Red Blood Count 3.23 M/mm3 (4.2-5.4); Red Cell Distribution Width 16.3 % (11.5-14.5); White Blood Count 8.5 K/mm3 (4.5-10.0)
[2022-11-19 06:51] LABS: Anion Gap 7 mmol/L (8-16); Blood Urea Nitrogen 17 mg/dL (7-17); Calcium 7.5 mg/dL (8.4-10.2); Carbon Dioxide 28 mmol/L (22-30); Chloride 103 mmol/L (98-107); Estimated Glomerular Filt Rate 59; Glucose 96 mg/dL (65-110); Potassium 3.6 mmol/L (3.4-5.0); Sodium 138 mmol/L (137-145)
[2022-11-19 06:55] LABS: Anisocytosis 1+ (NORMAL); Burr Cells 1+ (NORMAL); Ovalocytes 1+ (NORMAL); Schistocytes None Seen (NORMAL)
[2022-11-19] MEDS: FLUTICASONE/UMECLIDIN/VILANTER 100-62.5-25 MCG ELLIPTA 1 PUFF INHALATION (07:51)
[2022-11-19] MEDS: oxyCODONE/ACETAMINOPHEN (*CRX) 5-325 MG TABLET 1 TABLET PO ×4 (08:19→21:51)
[2022-11-19] MEDS: CITALOPRAM HYDROBROMIDE 20 MG TABLET PO (08:20)
[2022-11-19] MEDS: FERROUS SULFATE 325 MG TABLET DR PO (08:20)
[2022-11-19] MEDS: PANTOPRAZOLE 40 MG TABLET PO (08:20)
[2022-11-19] MEDS: OPTI-GEN TAB 1 TABLET PO ×2 (08:20→16:54)
[2022-11-19] MEDS: CLOPIDOGREL BISULFATE 75 MG TABLET PO (08:20)
[2022-11-19] MEDS: FUROSEMIDE 20 MG TABLET PO (08:20)
[2022-11-19] MEDS: MEMANTINE 5 MG TABLET PO ×2 (08:20→21:43)
[2022-11-19] MEDS: CHOLECALCIFEROL 1,000 UNITS TABLET 1000 UNITS PO (08:20)
[2022-11-19] MEDS: ATORVASTATIN 40 MG TABLET 80 MG PO (08:20)
[2022-11-19] MEDS: TOLNAFTATE 1% POWDER 45 GM BTL 1 APPLIC TOPICAL (08:21)
[2022-11-19] MEDS: PREGABALIN (*CRX) 50 MG CAPSULE 100 MG PO ×2 (08:25→16:57)
--- NOTE | 2022-11-19 11:02 | PM.IMPN ---
Progress Note: A&P Assessment and Plan (1) Multiple rib fractures: Qualifiers: Encounter type: initial encounter Fracture type: closed Laterality: right Qualified Code(s): S22.41XA - Multiple fractures of ribs, right side, initial encounter for closed fracture Code(s): S22.49XA - Multiple fractures of ribs, unspecified side, initial encounter for closed fracture Status: Acute Assessment and Plan: Continue pain control Doing okay today. Respiratory status okay Repeat chest x-ray in the morning. (2) Fracture of transverse process of lumbar vertebra: Qualifiers: Encounter type: initial encounter Fracture type: closed Qualified Code(s): S32.009A - Unspecified fracture of unspecified lumbar vertebra, initial encounter for closed fracture Code(s): S32.009A - Unspecified fracture of unspecified lumbar vertebra, initial encounter for closed fracture Status: Acute Assessment and Plan: Monitor, pain control (3) Compression fracture: Status: Acute Assessment and Plan: Continue pain control PTOT. MRI pending, to see if these are acute or chronic. (4) Chronic respiratory failure: Code(s): J96.10 - Chronic respiratory failure, unspecified whether with hypoxia or hypercapnia Status: Acute (5) Chronic anemia: Code(s): D64.9 - Anemia, unspecified Status: Acute (6) Generalized weakness: Code(s): R53.1 - Weakness Status: Acute (7) Fall: Code(s): W19.XXXA - Unspecified fall, initial encounter Status: Acute (8) Depression with anxiety: Code(s): F41.8 - Other specified anxiety disorders Status: Chronic (9) Hyperlipidemia: Code(s): E78.5 - Hyperlipidemia, unspecified Status: Acute (10) Chronic pain: Code(s): G89.29 - Other chronic pain Status: Acute Subjective Date/time seen: 11/19/22 11:02 Interval history: No new complaints Exam Narrative: General: alert and oriented Psych: appropriate mood nad affect Eyes: PERRLA Neck: Trachea midline, no new lesions Skin: no changes Lungs: CTA Cardiac: Normal S1,S2, no MGR ABD: soft, nd, nt, nbs Ext: no new lesions, no cce Vasc: Pulses intact Objective Data Vital Signs Vital Signs: Vital Signs - 24 hr 11/18/22 11:21 11/18/22 13:54 11/18/22 15:45 Temperature 98.1 F Pulse Rate 89 Respiratory Rate 18 18 Blood Pressure 116/76 Pulse Oximetry 91 Oxygen Delivery Nasal Cannula Oxygen Flow Rate 3 Fraction of Inspired Oxygen 11/18/22 16:06 11/18/22 20:04 11/18/22 20:04 Temperature Pulse Rate 92 Respiratory Rate 18 Blood Pressure Pulse Oximetry 95 Oxygen Delivery Nasal Cannula Nasal Cannula Oxygen Flow Rate 3 3 Fraction of Inspired Oxygen 11/18/22 20:18 11/19/22 00:00 11/19/22 02:38 Temperature 98 F Pulse Rate 99 84 86 Respiratory Rate 18 20 18 Blood Pressure 91/56 L Pulse Oximetry 93 Oxygen Delivery Oxygen Flow Rate Fraction of Inspired Oxygen 11/19/22 02:50 11/19/22 07:30 11/19/22 07:40 Temperature 96.2 F L Pulse Rate 82 89 Respiratory Rate 20 Blood Pressure 95/64 L Pulse Oximetry 92 92 Oxygen Delivery Nasal Cannula Oxygen Flow Rate 2 Fraction of Inspired Oxygen 28 11/19/22 07:40 11/19/22 07:54 11/19/22 08:00 Temperature Pulse Rate 88 86 Respiratory Rate 20 20 Blood Pressure Pulse Oximetry 92 Oxygen Delivery Nasal Cannula Oxygen Flow Rate 2 Fraction of Inspired Oxygen Intake/Output Intake/Output: Intake & Output 11/16/22 11/17/22 11/18/22 11/19/22 23:59 23:59 23:59 23:59 Intake Total 500 3720 4830 1440 Output Total 100 Balance 500 3620 4830 1440 Meds/Results Medications: Active Medications Generic Name Dose Route Start Last Admin Trade Name Alireza PRN Reason Stop Dose Admin Acetaminophen 650 mg 11/17/22 08:11 11/18/22 21:34 Acetaminophen 325 Mg Tablet PO 65
[2022-11-19] MEDS: AMITRIPTYLINE HCL 25 MG TABLET PO (21:43)
[2022-11-19] MEDS: PRAMIPEXOLE 0.5 MG TABLET PO (21:43)
[2022-11-19] MEDS: BISACODYL 5 MG TABLET EC 10 MG PO (22:01)
[2022-11-20] VITALS (8 sets, daily range): BP systolic 110–132; BP diastolic 59–94; PULSE 80–112; RESP 14–20; TEMP 36.2–36.7; O2SAT 89–96
[2022-11-20] MEDS: ALBUTEROL SULFATE NEB 2.5 MG/3 ML INH INHALATION ×2 (01:37→08:28)
[2022-11-20] MEDS: oxyCODONE/ACETAMINOPHEN (*CRX) 5-325 MG TABLET 1 TABLET PO ×3 (02:41→16:58)
[2022-11-20] MEDS: SODIUM CHLORIDE 0.9% IV 1,000 ML 125 ML IV CONT (06:51)
[2022-11-20] MEDS: FLUTICASONE/UMECLIDIN/VILANTER 100-62.5-25 MCG ELLIPTA 1 PUFF INHALATION (08:28)
[2022-11-20] MEDS: FERROUS SULFATE 325 MG TABLET DR PO (09:04)
[2022-11-20] MEDS: OPTI-GEN TAB 1 TABLET PO (09:04)
[2022-11-20] MEDS: CITALOPRAM HYDROBROMIDE 20 MG TABLET PO (09:04)
[2022-11-20] MEDS: MEMANTINE 5 MG TABLET PO (09:04)
[2022-11-20] MEDS: FUROSEMIDE 20 MG TABLET PO (09:04)
[2022-11-20] MEDS: PANTOPRAZOLE 40 MG TABLET PO (09:04)
[2022-11-20] MEDS: ATORVASTATIN 40 MG TABLET 80 MG PO (09:04)
[2022-11-20] MEDS: CLOPIDOGREL BISULFATE 75 MG TABLET PO (09:04)
[2022-11-20] MEDS: CHOLECALCIFEROL 1,000 UNITS TABLET 1000 UNITS PO (09:04)
[2022-11-20] MEDS: TOLNAFTATE 1% POWDER 45 GM BTL 1 APPLIC TOPICAL (09:04)
[2022-11-20] MEDS: PREGABALIN (*CRX) 50 MG CAPSULE 100 MG PO (09:08)
[2022-11-20] MEDS: BISACODYL 5 MG TABLET EC 10 MG PO (09:18)
--- NOTE | 2022-11-20 11:33 | PM.DS ---
DS: Admitting Diagnosis Discharge Date November 20, 2022 Admitting Diagnosis Fall DS: Discharge Diagnosis Discharge Diagnosis (1) Multiple rib fractures: Qualifiers: Encounter type: initial encounter Fracture type: closed Laterality: right Qualified Code(s): S22.41XA - Multiple fractures of ribs, right side, initial encounter for closed fracture Code(s): S22.49XA - Multiple fractures of ribs, unspecified side, initial encounter for closed fracture Status: Acute Assessment and Plan: Continue pain control Doing okay today. Respiratory status okay Repeat chest x-ray in the morning. (2) Fracture of transverse process of lumbar vertebra: Qualifiers: Encounter type: initial encounter Fracture type: closed Qualified Code(s): S32.009A - Unspecified fracture of unspecified lumbar vertebra, initial encounter for closed fracture Code(s): S32.009A - Unspecified fracture of unspecified lumbar vertebra, initial encounter for closed fracture Status: Acute Assessment and Plan: Monitor, pain control (3) Compression fracture: Status: Acute Assessment and Plan: Continue pain control PTOT. MRI pending, to see if these are acute or chronic. (4) Chronic respiratory failure: Code(s): J96.10 - Chronic respiratory failure, unspecified whether with hypoxia or hypercapnia Status: Acute (5) Chronic anemia: Code(s): D64.9 - Anemia, unspecified Status: Acute (6) Generalized weakness: Code(s): R53.1 - Weakness Status: Acute (7) Fall: Code(s): W19.XXXA - Unspecified fall, initial encounter Status: Acute (8) Depression with anxiety: Code(s): F41.8 - Other specified anxiety disorders Status: Chronic (9) Hyperlipidemia: Code(s): E78.5 - Hyperlipidemia, unspecified Status: Acute (10) Chronic pain: Code(s): G89.29 - Other chronic pain Status: Acute DS: Summary Hospital Course Hospital Course: Patient was admitted for a fall and rib fractures. Will be discharged to [facility]. Pain is controlled. Time Spent with Patient Time attestation: Total time spent providing and/or coordinating discharge services: Exam Narrative: General: alert and oriented Psych: appropriate mood nad affect Eyes: PERRLA Neck: Trachea midline, no new lesions Skin: no changes Lungs: CTA Cardiac: Normal S1,S2, no MGR ABD: soft, nd, nt, nbs Ext: no new lesions, no cce Vasc: Pulses intact Discharge Plan Discharge Attending physician on discharge: Juvenal Saavedra Discharging Clinician: Juvenal Saavedra Patient Disposition: Home, Self-Care Activity: as tolerated Diet: as tolerated Patient Instructions: Antibiotic Form, Heart Failure (DC), Pain Management in Older Adults (GEN) Stand Alone Forms: General Discharge Information Follow-up/Referrals: Alma,BERE Upton [Primary Care Provider] - Discharge Medications: New oxycodone-acetaminophen 5-325 mg Tablet 1 tablet PO Q4H PRN (Reason: Pain (Scale Score 7-10)) 30 Days Qty: 30 0RF Continued pantoprazole 40 mg tablet,delayed release (DR/EC) 40 mg PO QAM furosemide 20 mg tablet 20 mg PO DAILY citalopram 20 mg tablet 20 mg PO DAILY atorvastatin 80 mg Tablet 80 mg PO DAILY clopidogrel 75 mg Tablet 75 mg PO DAILY memantine 5 mg Tablet 5 mg PO BID pramipexole [Mirapex] 0.5 mg Tablet 0.5 mg PO HS ferrous sulfate 325 mg (65 mg iron) tablet 325 mg PO DAILY pregabalin 100 mg capsule 100 mg PO BID bisacodyl [Laxative (bisacodyl)] 5 mg Tablet,Delayed Release (Dr/Ec) 10 mg PO DAILY PRN (Reason: Constipation) Qty: 7 0RF acetaminophen [Mapap (acetaminophen)] 325 mg Tablet 650 mg PO Q4H PRN (Reason: Mild Pain (1-3) Or Fever) Qty: 60 0RF Rx Instructions: do not exceed total of 4,000mg in 24 hours nystatin 100,000 unit/gram po
--- NOTE | 2022-11-20 14:24 | PC.NURSE ---
Soap suds enema given as ordered. Pt unable to retain. Up to [facility] without results.
== END 2022-11-20 17:08 | disposition home or self-care (01) | DRG 184 ==
LOC: ANHED 23:15 → ANHIMU 23:27 → ANH3MEDSUR 11-18 15:18
PROVIDERS: Admitting Provider Internal Medicine; Emergency Provider General Practice; PCP Physician Assistant; Visit Provider Chiropractor
DX: S22.41XA Multiple fractures of ribs, right side, initial encounter for closed fracture (principal); J96.10 Chronic respiratory failure, unspecified whether with hypoxia or hypercapnia; S32.039A Unspecified fracture of third lumbar vertebra, initial encounter for closed fracture; J44.9 Chronic obstructive pulmonary disease, unspecified; K44.9 Diaphragmatic hernia without obstruction or gangrene; K21.9 Gastro-esophageal reflux disease without esophagitis; F32.A Depression, unspecified; F41.9 Anxiety disorder, unspecified; W19.XXXA Unspecified fall, initial encounter; Z87.891 Personal history of nicotine dependence; Z79.01 Long term (current) use of anticoagulants; Z99.81 Dependence on supplemental oxygen
CPT/HCPCS: 36415; 70450; 71045; 71101; 71260; 72125; 72148; 73502; 74177; 80048; 80053; 81001; 83605; 83735; 85025; 85055; 85610; 85730; 87086; 87147; 87181; 87186; 93005; 94640; 94660; 96361; 96374; 96375; 96376; 97110; 97116; 97161; 97166; 97530; 97535; 99285; A9270; G0378; J0696; J2270; J2405; J7030; J7040; Q9967

== ENCOUNTER 2023-02-19 12:19 | Inpatient (IN) | payer MEDICARE, SELFPAY ==
[2023-02-19] VITALS (36 sets, daily range): BP systolic 92–149; BP diastolic 60–115; PULSE 81–139; RESP 12–29; TEMP 36.4–36.8; O2SAT 90–98; BMI 32.1
--- NOTE | ~2023-02-19 | CT_ITS ---
EXAMINATION: CT brain wo con INDICATION: Unsteady gait and urinary incontinence COMPARISON: 11/16/2022 TECHNIQUE: Standard unenhanced head CT. The dose-length product (DLP) was 681.00 mGy-cm. The mA was a djusted according to patient size. Iterative reconstruction technique was employed. FINDINGS: No acute intraparenchymal hemorrhage. No evidence of mass lesion. No evidence of acute infa rction. There is mild periventricular and subcortical hypodensity probably related to small vessel is chemic disease. There is mild prominence of the sulci and ventricles related to cerebral atrophy. Int racranial calcified cerebral atherosclerosis is noted. No extra-axial collections. No mass effect or midline shift. Changes in the globes are likely from ocular lens surgery. The visualized sinuses and mastoid air cells are well aerated. IMPRESSION: 1. No acute intracranial abnormality. 2. Age related findings. Reviewed, dictated and finalized at location L. RICT CUSTOMS DIRECTOR
--- NOTE | ~2023-02-19 | XR_ITS ---
EXAMINATION: XR chest 2V DATE: 02/19/2023 13:28 INDICATION: Productive cough. Emphysema. TECHNIQUE: frontal and lateral views of the chest were obtained. COMPARISON: Chest radiograph dated 11/18/2022 FINDINGS: Lung volumes remain small. Persistent airspace opacity left mid to lower lung zone. Right lung is now clear with a couple old healed posterolateral right seventh and eighth rib fractures project over th e lateral lower lung zone. No pleural effusion or pneumothorax. Calcified nodule at the left lower scott ng and calcite left hilar lymph nodes consistent with old granulomatous disease. Heart size is normal . Compression fractures at the lower thoracic and upper lumbar spine, one with changes of prior verte broplasty with some extravasation of methylmethacrylate into the more cephalad disc space. Cholecyste ctomy clips in the right upper quadrant. A few old fracture at the left humeral neck. IMPRESSION: 1. Small lung volumes with unchanged airspace opacities in the left mid and lower lung zones which co uld represent pneumonia and/or atelectasis. Reviewed, dictated and finalized at location A. ICAL DIRECTOR IMPRESSION: 1. Small lung volumes with unchanged airspace opacities in the left mid and low er lung zones which could represent pneumonia and/or atelectasis.
--- NOTE | ~2023-02-19 | XR_ITS ---
EXAMINATION: XR chest 2V DATE: 02/23/2023 15:44 INDICATION: Dyspnea. TECHNIQUE: Frontal and lateral views of the chest were obtained. COMPARISON: Chest 2 views 02/19/2023 FINDINGS: There is mild atelectasis in the mid and lower lung zones. No pleural effusion or pneumotho rax. The heart size is normal. There is a large hiatal hernia. There are multiple old vertebral body fractures with changes of vertebroplasty at one level. Surgical clips in the right upper quadrant are likely from cholecystectomy. There is an old healed fracture of proximal left humerus. There are asa nges of posterior fusion procedure in cervical spine. IMPRESSION: 1. Mild atelectasis in the mid and lower lung zones. 2. Large hiatal hernia. Reviewed, dictated and finalized at location A. OARRAY ANALYST
--- NOTE | 2023-02-19 12:31 | ECG_ITS ---
Measurements Intervals [place] Rate: 86 P: 7 WI: 168 QRS: 8 QRSD: 142 T: -19 QT: 375 QTc: 450 Interpretive Statements SINUS RHYTHM FREQUENT ATRIAL PREMATURE COMPLEXES RIGHT BUNDLE BRANCH BLOCK ABNORMAL ECG COMPARED TO ECG 11/16/2022 19:57:13 RIGHT BUNDLE-BRANCH BLOCK NOW PRESENT Electronically Signed On 02-19-2023 14:18:37 AQUARIUM TANK ATTENDANT by Cristian Sanchez D.O.
[2023-02-19 13:17] LABS: Basophils Percent Auto 0.2 % (0.2-1.2); Eosinophils Percent Auto 0.2 % (0-4.4); Hemoglobin 12.2 g/dL (12.0-15.0); Immature Granulocyte Absolute 0.07 K/mm3 (0.00-0.031); Immature Granulocyte Percent A 0.5 % (0-0.5); Lymphocytes Absolute Auto 1.41 K/mm3 (0.9-3.2); Lymphocytes Percent Auto 9.9 % (18.3-44.2); Mean Corpuscular HGB Conc 29.8 g/dl (32-36); Mean Corpuscular Hemoglobin 26.7 pg (26-34); Mean Corpuscular Volume 89.7 fl (80-100); Mean Platelet Volume 10.3 fl (7.4-10.4); Monocytes Absolute Auto 1.2 K/mm3 (0.1-0.6); Monocytes Percent Auto 8.3 % (2.6-8.5); Neutrophils Absolute Auto 11.6 K/mm3 (1.3-6.7); Neutrophils Percent Auto 80.9 % (45.5-73.1); Platelet Count Result 147 k/mm3 (150-375); Red Blood Count 4.57 M/mm3 (4.2-5.4); Red Cell Distribution Width 16.5 % (11.5-14.5); White Blood Count 14.3 K/mm3 (4.5-10.0)
[2023-02-19 13:27] LABS: Blood Urea Nitrogen 25 mg/dL (7-17); Calcium 8.7 mg/dL (8.4-10.2); Carbon Dioxide > 40 mmol/L (22-30); Chloride 91 mmol/L (98-107); Estimated Glomerular Filt Rate 52; Glucose 99 mg/dL (65-110); Potassium 3.5 mmol/L (3.4-5.0); Sodium 139 mmol/L (137-145)
[2023-02-19 13:32] LABS: D Dimer 0.73 ug/mL (<0.48)
[2023-02-19 13:37] LABS: Anisocytosis 1+ (NORMAL); Hypochromasia 1+ (NORMAL); Platelet Estimate Adequate (Adequate); Schistocytes None Seen (NORMAL)
[2023-02-19 13:38] LABS: Troponin I < 0.012 ng/mL (0.000-0.034)
--- NOTE | 2023-02-19 13:50 | ED.URI ---
HPI - URI/Sore Throat General Chief Complaint: Upper Respiratory Infection Stated Complaint: unsteady gait, cough Source: patient History of Present Illness HPI Narrative: This is an 88 year old with history of smoking and COPD on 2LPM supplmental O2 in the AM and 2L PM who presents feeling shaky with an unsteady gait. She has had a cough productive of phillip phlegm. She has decreased strength. No unilateral nature to weakness. She denies any chest pain, only chronic back pain. She has been incontinent for years. Denies fevers. No falls. She states she has had 3 or 4 prior episodes of pneumonia but denies any of these being resistant to antibiotics as far she knows. No recent hospitalizations and no recent antibiotic usage. Related Data Home Medications Medication Instructions Recorded Confirmed furosemide 20 mg tablet 20 mg PO DAILY 10/23/20 02/20/23 pantoprazole 40 mg tablet,delayed 40 mg PO QAM 10/23/20 02/20/23 release atorvastatin 80 mg tablet 80 mg PO DAILY 03/04/22 02/20/23 clopidogrel 75 mg tablet 75 mg PO DAILY 03/04/22 02/20/23 memantine 5 mg tablet 5 mg PO BID 03/04/22 02/20/23 pramipexole 0.5 mg tablet (Mirapex) 0.5 mg PO HS 03/07/22 02/20/23 ferrous sulfate 325 mg (65 mg 325 mg PO DAILY 10/01/22 02/20/23 iron) tablet pregabalin 100 mg capsule 100 mg PO BID 10/01/22 02/20/23 albuterol sulfate 2.5 mg/3 mL 2.5 mg inhalation Q8H PRN wheezing 10/13/22 02/20/23 (0.083 %) solution for nebulization amitriptyline 25 mg tablet 25 mg PO QHS 10/13/22 02/20/23 cholecalciferol (vitamin D3) 25 25 mcg PO DAILY 10/13/22 02/20/23 mcg (1,000 unit) capsule (Vitamin D3) fluticasone fur. 100 mcg-umeclid 1 inh inhalation DAILY 10/13/22 02/20/23 62.5 mcg-vilant 25 mcg inhalat.powder (Trelegy Ellipta) nystatin 100,000 unit/gram topical 1 applic topical DAILY 11/17/22 02/20/23 powder citalopram 20 mg tablet 20 mg PO DAILY 02/20/23 02/20/23 Allergies Allergy/AdvReac Type Severity Reaction Status Date / Time chlorpromazine Allergy Unknown Unknown Verified 02/19/23 12:32 [From Thorazine] diphenhydramine Allergy Unknown Unknown Verified 02/19/23 12:32 [From Benadryl] rofecoxib [From Vioxx] Allergy Unknown Unknown Verified 02/19/23 12:32 meperidine [From Demerol] Allergy Unknown Verified 02/19/23 12:32 zolpidem [From Ambien] Allergy Unknown Verified 02/19/23 12:32 [facility] Past Medical History Medical History Acute exacerbation of chronic obstructive airways disease Chronic GERD COPD (chronic obstructive pulmonary disease) Depression with anxiety Hiatal hernia Surgical History Surgical History H/O bladder repair surgery H/O breast surgery H/O colonoscopy H/O esophagogastroduodenoscopy H/O foot surgery H/O hernia repair H/O Spinal surgery H/O wrist surgery H/O: hysterectomy Hx of cataract extraction Hx of cholecystectomy S/P cervical spinal fusion S/P tonsillectomy Family History Family History Father Bladder cancer Mother Hypertension Depression Sibling Asthma Hypertension Depression Grandparent Hypertension Heart disease Cerebrovascular accident Grandparent Alcoholism Lung cancer Social History Social History Social History: The patient is and has 3 children. 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 She tells me she was a former smoker. She chronically wears oxygen at home. She does not have a durable power tax associate attorney for healthcare. She has an alcoholic beverage approximately 4 times per week. Code status full code Smoking packs per day: 0.5 Smoking cigarettes per day: 10.0 Years smoked: 40 Smoking pack-years: 20.00 Smoking status: Former smoker Second hand tobacco smoke exposure: No Alcohol intake: former D
[2023-02-19 13:54] LABS: Influenza A QL RT-PCR Negative (Negative); Influenza B QL RT-PCR Negative (Negative); RSV RNA, RT-PCR Negative (Negative); SARS-CoV-2 RNA PCR Negative (Negative)
[2023-02-19 14:13] LABS: Alveolar/Arterial O2 Gradient 76.7 mmHg; Base Excess ABG 8.6 mEq/l (+/-2.0); Fractional Inspired Oxygen 32 %; HCO3 ABG 36.4 mEq/l (22.0-26.0); Oxygen Content ABG 16.5 %vol (16.0-22.0); Oxygen Saturation ABG 93.8 % (95.0-100.0); PO2 ABG 73.8 mmHg (80.0-100.0); PO2 FiO2 Ratio Arterial Blood 2.31 %; Total Hemoglobin 12.7 g/dL (12.0-18.0); pH ABG 7.357 (7.350-7.450)
[2023-02-19 14:15] LABS: Device NASAL CANNULA; Modified Allen's Test Pass; PCO2 ABG 66.4 mmHg (35.0-45.0); Site Drawn LEFT RADIAL
[2023-02-19] MEDS: DOXYCYCLINE 100 MG/NS 100 ML 100 MG/100 ML BAG IVPB (14:48)
[2023-02-19 15:18] LABS: Appearance Urine Cloudy (Clear); Bacteria Urine 4+ /hpf; Bilirubin Urine Negative (Negative); Blood Urine Negative (Negative); Color Urine Yellow (Yellow); Glucose Urine UA Negative (Negative); Ketones Urine Negative (Negative); Leukocyte Esterase Ur 2+ LEU/UL (Negative); Nitrate Urine Negative (Negative); Non Pathogenic Casts 0-2; Protein Urine Negative (Negative); RBC Urine 0-2 /hpf (0-2); Specific Grav Ur 1.011 (1.001-1.035); Squamous Epithelial Cell Urine None seen /hpf (Few); Urobilinogen Urine 0.2 mg/dL (<2.0); WBC Urine 51-100 /hpf; pH Urine 5.5 (5.0-9.0)
[2023-02-19 15:28] LABS: Add Urine Microscopic? YES
--- NOTE | 2023-02-19 16:38 | PM.IMHP ---
H&P: HPI History of Present Illness Date/Time: 02/19/23 16:38 Chief Complaint: Cough, Weakness Narrative: 88 y/o F presents here with cough and generalized weakness with PMH of COPD, GERD, and depression/anxiety. Patient reports that last night she began having an increased amount of sputum production. Cough yielding green/brown sputum, no blood. No associated fever, chills, body aches, or SOB. Reports she has been hospitalized 3 times in last few months, more recent on 11/17-11/28 due to a fall with multiple rib fxs. Patient also developed an increased amount of generalized weakness. States she was sitting in a chair this morning and attempted to use her arms to push herself up and out of the chair and was unable to. Caregiver who sees patient 4 times a week was present and urged patient to come be evaluated. Patient reports that usually when she becomes generally weak is due to UTI, baseline incontinence. Reports that she has had multiple bladder surgeries which is why she developed incontinence/frequency. No current dysuria or hematuria. Currently able to answer orientation questions (self, place, year) but staff who have been apart of her care have noted intermittent confusion that is more situational or recent history. Of note, patient also reports clonus in her upper and lower extremities (upper worse than lower) after previous spinal surgeries that has been it is progressively getting worse over the last few years. Upper extremity clonus observed on exam. Review of Systems Review of Systems: All systems reviewed & are unremarkable except as noted in HPI and below PMFSH Past Medical History Medical History Acute exacerbation of chronic obstructive airways disease Chronic GERD COPD (chronic obstructive pulmonary disease) Depression with anxiety Hiatal hernia Surgical History Surgical History H/O bladder repair surgery H/O breast surgery H/O colonoscopy H/O esophagogastroduodenoscopy H/O foot surgery H/O hernia repair H/O Spinal surgery H/O wrist surgery H/O: hysterectomy Hx of cataract extraction Hx of cholecystectomy S/P cervical spinal fusion S/P tonsillectomy Family History Family History Father Bladder cancer Mother Hypertension Depression Sibling Asthma Hypertension Depression Grandparent Hypertension Heart disease Cerebrovascular accident Grandparent Alcoholism Lung cancer Social History Social History Social History: The patient is and has 3 children. 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 She tells me she was a former smoker. She chronically wears oxygen at home. She does not have a durable power banking attorney for healthcare. She has an alcoholic beverage approximately 4 times per week. Code status full code Smoking packs per day: 0.5 Smoking cigarettes per day: 10.0 Years smoked: 40 Smoking pack-years: 20.00 Smoking status: Former smoker Second hand tobacco smoke exposure: No Alcohol intake: former Drinks per week: 1 Substance use: never Substance use type: does not use Lack of Transportation: No Lack of Food: Never True Current Housing: I Have Housing Concerned About Future Housing: No Difficulty Paying Gas/Electric Bills: No Difficulty Paying for Meds: No Currently Unemployed: No Education: Associate Degree Difficulty w/ Childcare or Family Care: No Spiritual care concerns: No Meds Home Medications and Allergies Home Medications Medication Instructions Recorded Confirmed Type furosemide 20 mg tablet 20 mg PO DAILY 10/23/20 11/20/22 History pantoprazole 40 mg tablet,delayed 40 mg PO QA 10/23/20 11/20/22 History release atorvastatin 80 mg tablet 80 mg PO DAILY
--- NOTE | 2023-02-19 17:06 | PC.NURSE ---
Pt refusing to use bipap ERP aware. Resp at bedside to remove bipap.
--- NOTE | 2023-02-19 17:30 | PC.NURSE ---
this RN called dietary and ordered meal for pt at this time
--- NOTE | 2023-02-19 18:01 | ADMGEN ---
This patient, Jazmin Bullard, was admitted to Medical Room 346-01. Patient/family oriented to hospital policies and general routines including ID bracelet, bed and alarms, visiting hours, pain management, procedures, bathroom and other care routines, personal items, smoking policy, room service/diet, and visiting hours. Information on how to activate the Rapid Response Team has been discussed. Patient/Family are encouraged to report perceived risks to care and to ask questions if they do not understand what they are told or what they should do.
[2023-02-19] MEDS: LACTATED RINGERS 1,000 ML 125 ML IV CONT (18:07)
--- NOTE | 2023-02-19 18:36 | PC.NURSE ---
PT A&Ox3 at this time. Admission completed with pt who is a poor historian. Call made to son for previous medical hx and medication list. No voicemail is set up. Will attempt to call again.
--- NOTE | 2023-02-19 19:14 | PC.NURSE ---
Spoke with son Tyrone. Will have caregiver bring in medications for us to reconcile.
--- NOTE | 2023-02-19 19:48 | ECG_ITS ---
Measurements Intervals [place] Rate: 101 P: 19 MS: 172 QRS: 19 QRSD: 149 T: -19 QT: 361 QTc: 468 Interpretive Statements ATRIAL TACHYCARDIA CHANGES TO SINUS RHYTHM ATRIAL PREMATURE COMPLEX RIGHT BUNDLE BRANCH BLOCK CONSIDER INFERIOR INFARCT, AGE INDETERMINATE ABNORMAL ECG COMPARED TO ECG 02/19/2023 14:13:59 ATRIAL TACHYCARDIA NOW PRESENT Electronically Signed On 02-20-2023 6:17:08 AUTOMOBILE LOCATOR by Cristian Sanchez D.O.
[2023-02-19] MEDS: MELATONIN 3 MG TABLET PO (20:44)
[2023-02-19] MEDS: ACETAMINOPHEN 325 MG TABLET 650 MG PO (20:53)
[2023-02-20] VITALS (13 sets, daily range): BP systolic 104–118; BP diastolic 63–81; PULSE 64–113; RESP 14–20; TEMP 36.2–36.5; O2SAT 94–96
[2023-02-20] MEDS: DOXYCYCLINE 100 MG/NS 100 ML 100 MG/100 ML BAG IVPB ×3 (00:05→21:54)
[2023-02-20] MEDS: LACTATED RINGERS 1,000 ML 125 ML IV CONT (05:38)
[2023-02-20] MEDS: predniSONE 20 MG TABLET 40 MG PO (09:09)
[2023-02-20] MEDS: ENOXAPARIN 30 MG/0.3 ML SYRINGE SUB-Q (09:10)
[2023-02-20] MEDS: BENZONATATE 100 MG CAPSULE PO ×3 (09:10→17:10)
--- NOTE | 2023-02-20 11:11 | PM.IMPN ---
Progress Note: A&P Assessment and Plan (1) Pneumonia: Qualifiers: Laterality: left Lung location: lower lobe of lung Pneumonia type: due to unspecified organism Qualified Code(s): J18.9 - Pneumonia, unspecified organism Code(s): J18.9 - Pneumonia, unspecified organism Status: Acute Assessment and Plan: Pneumonia CXR: Small lung volumes with unchanged airspace opacities in the left mid and lower lung zones which could represent pneumonia and/or atelectasis. initial labs WBC 14.3 d-dimer 0.73, age adjustment cutoff 0.87 ABG - pH 7.357, pCO2 66.4, pO2 73.8, HCO3 36.4, O2 Sat 93.8% CO2 >40 Cr 1.0 (baseline), BUN 25 (previously 11 on 11/28), GFR 52 viral PCR - negative for influenza, COVID, RSV Start doxycycline 100 mg IVPB q.12, 1st dose on 02/19 Prednisone 40 mg p.o. daily x5 days LR 125 mL/hr--discontinued to prevent fluid overload atrovent/albuterol nebs Q6H prn tyl prn for fever or pain tessalon perles prn mrsa screen sputum culture trial on BIPAP in ED - patient did not tolerate on 2-3L NC at baseline 02/20: IV fluids stopped to prevent fluid overload. Increased Rocephin to 2 grams daily. (2) UTI (urinary tract infection): Qualifiers: Hematuria presence: with hematuria Urinary tract infection type: acute cystitis Qualified Code(s): N30.01 - Acute cystitis with hematuria Code(s): N39.0 - Urinary tract infection, site not specified Status: Acute Assessment and Plan: UTI UA: cloudy, 2+ leuks, 51-100 WBC, 4+ bacteria UC pending ceftriaxone 1G Q24H, 1st dose on 02/19. await culture/sensitivities 02/20: Rocephin increased to 2 grams due to pneumonia (3) Weakness: Code(s): R53.1 - Weakness Status: Acute Assessment and Plan: weakness DD: secondary to infection, CVA, dehydration, electrolyte disturbances, CA Head CT - no acute intracranial abnormality. Age-related findings. EKG SINUS RHYTHM FREQUENT ATRIAL PREMATURE COMPLEXES RIGHT BUNDLE BRANCH BLOCK ABNORMAL ECG COMPARED TO ECG 11/16/2022 19:57:13 RIGHT BUNDLE-BRANCH BLOCK NOW PRESENT troponin negative x1 CXR - possible pna UA: possible UTI, culture pending 02/20: Will order PT/OT Plan Med Rec: completed based on best information available Diet: regular GI Prophylaxis: not indicated DVT Prophylaxis: SCDs, Lovenox Lines: PIV Code Status: Full Code Time Spent With Patient Time with patient: 25 - 35 minutes Subjective Date/time seen: 02/20/23 11:11 Interval history: From previous chart: Chief Complaint: Cough, Weakness Narrative: 88 y/o F presents here with cough and generalized weakness with PMH of COPD, GERD, and depression/anxiety. Patient reports that last night she began having an increased amount of sputum production.? Cough yielding green/brown sputum, no blood. No associated fever, chills, body aches, or SOB.? Reports she has been hospitalized 3 times in last few months, more recent on 11/17-11/28 due to a fall with multiple rib fxs.? Patient also developed an increased amount of generalized weakness.? States she was sitting in a chair this morning and attempted to use her arms to push herself up and out of the chair and was unable to.? Caregiver who sees patient 4 times a week was present and urged patient to come be evaluated.? Patient reports that usually when she becomes generally weak is due to UTI, baseline incontinence.? Reports that she has had multiple bladder surgeries which is why she developed incontinence/frequency.? No current dysuria or hematuria.? Currently able to answer orientation questions (self, place, year) but staff who have been apart of her care have noted intermittent confusion that is more situational or recent history.? Of note, patient also reports clonus in her upper and lower extremities (upper worse than lower) after previous spinal surgeries that has been it is progressively getting worse over the l
--- NOTE | 2023-02-20 11:40 | ECG_ITS ---
Measurements Intervals [place] Rate: 91 P: 62 CA: 174 QRS: 15 QRSD: 145 T: -26 QT: 393 QTc: 484 Interpretive Statements SINUS RHYTHM FREQUENT ATRIAL PREMATURE COMPLEXES RIGHT BUNDLE BRANCH BLOCK ST-T WAVE ABNORMALITY IN INFERIOR LEADS- CONSIDER ISCHEMIA ABNORMAL ECG COMPARED TO ECG 02/19/2023 20:05:06 Electronically Signed On 02-20-2023 13:28:11 MEDICAL TERRITORY MANAGER by Cristian Sanchez D.O.
--- NOTE | 2023-02-20 12:15 | PC.NURSE ---
Family brought in medication list. Pt has circled what she still takes. List has been discussed with family and hospitalist because of this nurses concern for patients ability to recall what she actually takes. Pts mentation not always a&o x3. Hospitalist is aware and we will enter medications to the best of all abilities.
[2023-02-20] MEDS: cefTRIAXone 2 GM/NS 100 ML 2 GM/100 ML BAG IVPB (13:17)
[2023-02-20] MEDS: PREGABALIN (*CRX) 50 MG CAPSULE 100 MG PO (17:10)
[2023-02-20] MEDS: MEMANTINE 5 MG TABLET PO (17:10)
[2023-02-20] MEDS: oxyCODONE/ACETAMINOPHEN (*CRX) 5-325 MG TABLET 1 TABLET PO ×2 (17:11→23:29)
[2023-02-20] MEDS: PRAMIPEXOLE 0.5 MG TABLET PO (20:14)
[2023-02-20] MEDS: AMITRIPTYLINE HCL 25 MG TABLET PO (20:14)
[2023-02-20] MEDS: ALBUTEROL SULFATE NEB 2.5 MG/3 ML INH INHALATION (20:32)
[2023-02-21] VITALS (16 sets, daily range): BP systolic 105–129; BP diastolic 50–79; PULSE 70–106; RESP 14–20; TEMP 36.3–36.7; O2SAT 93–99
[2023-02-21] MEDS: ALBUTEROL SULFATE NEB 2.5 MG/3 ML INH INHALATION ×4 (02:56→20:24)
[2023-02-21 05:31] LABS: Basophils Percent Auto 0.3 % (0.2-1.2); Hematocrit 39.4 % (37.0-47.0); Hemoglobin 11.8 g/dL (12.0-15.0); Immature Granulocyte Absolute 0.05 K/mm3 (0.00-0.031); Immature Granulocyte Percent A 0.7 % (0-0.5); Lymphocytes Absolute Auto 1.24 K/mm3 (0.9-3.2); Lymphocytes Percent Auto 16.7 % (18.3-44.2); Mean Corpuscular HGB Conc 29.9 g/dl (32-36); Mean Corpuscular Hemoglobin 26.5 pg (26-34); Mean Corpuscular Volume 88.3 fl (80-100); Monocytes Absolute Auto 0.5 K/mm3 (0.1-0.6); Monocytes Percent Auto 6.2 % (2.6-8.5); Neutrophils Absolute Auto 5.7 K/mm3 (1.3-6.7); Neutrophils Percent Auto 76.1 % (45.5-73.1); Platelet Count Result 143 k/mm3 (150-375); Red Blood Count 4.46 M/mm3 (4.2-5.4); Red Cell Distribution Width 16.1 % (11.5-14.5); White Blood Count 7.4 K/mm3 (4.5-10.0)
[2023-02-21] MEDS: oxyCODONE/ACETAMINOPHEN (*CRX) 5-325 MG TABLET 1 TABLET PO ×2 (05:38→22:12)
[2023-02-21 05:43] LABS: Alanine Aminotransferase 44 U/L (6-35); Albumin Level 3.7 g/dL (3.5-5.1); Alkaline Phosphatase 106 U/L (38-126); Anion Gap 5 mmol/L (8-16); Aspartate Amino Transferase 37 U/L (14-36); Bilirubin,Total 0.5 mg/dL (0.2-1.3); Blood Urea Nitrogen 15 mg/dL (7-17); Calcium 8.6 mg/dL (8.4-10.2); Carbon Dioxide 38 mmol/L (22-30); Chloride 95 mmol/L (98-107); Estimated Glomerular Filt Rate > 60; Glucose 113 mg/dL (65-110); Potassium 2.8 mmol/L (3.4-5.0); Sodium 138 mmol/L (137-145)
[2023-02-21] MEDS: POTASSIUM CHLORIDE 20 MEQ ER TABLET 80 MEQ PO (06:09)
[2023-02-21] MEDS: FLUTICASONE/UMECLIDIN/VILANTER 100-62.5-25 MCG ELLIPTA 1 PUFF INHALATION (07:59)
[2023-02-21] MEDS: predniSONE 20 MG TABLET 40 MG PO (08:26)
[2023-02-21] MEDS: BENZONATATE 100 MG CAPSULE PO ×3 (08:27→17:46)
[2023-02-21] MEDS: ATORVASTATIN 40 MG TABLET 80 MG PO (08:27)
[2023-02-21] MEDS: CITALOPRAM HYDROBROMIDE 20 MG TABLET PO (08:28)
[2023-02-21] MEDS: CHOLECALCIFEROL 1,000 UNITS TABLET 1000 UNITS PO (08:28)
[2023-02-21] MEDS: CLOPIDOGREL BISULFATE 75 MG TABLET PO (08:29)
[2023-02-21] MEDS: ENOXAPARIN 30 MG/0.3 ML SYRINGE SUB-Q (08:29)
[2023-02-21] MEDS: FERROUS SULFATE 325 MG TABLET DR PO (08:30)
[2023-02-21] MEDS: FUROSEMIDE 20 MG TABLET PO (08:30)
[2023-02-21] MEDS: PREGABALIN (*CRX) 50 MG CAPSULE 100 MG PO ×2 (08:31→17:46)
[2023-02-21] MEDS: PANTOPRAZOLE 40 MG TABLET PO (08:31)
[2023-02-21] MEDS: MEMANTINE 5 MG TABLET PO ×2 (08:31→17:46)
[2023-02-21] MEDS: DOXYCYCLINE 100 MG/NS 100 ML 100 MG/100 ML BAG IVPB ×2 (10:40→22:12)
[2023-02-21] MEDS: cefTRIAXone 2 GM/NS 100 ML 2 GM/100 ML BAG IVPB (12:32)
--- NOTE | 2023-02-21 12:43 | PM.IMPN ---
Progress Note: A&P Assessment and Plan (1) Pneumonia: Qualifiers: Pneumonia type: due to unspecified organism Code(s): J18.9 - Pneumonia, unspecified organism Status: Acute Assessment and Plan: Pneumonia CXR: Small lung volumes with unchanged airspace opacities in the left mid and lower lung zones which could represent pneumonia and/or atelectasis. initial labs WBC 14.3 d-dimer 0.73, age adjustment cutoff 0.87 ABG - pH 7.357, pCO2 66.4, pO2 73.8, HCO3 36.4, O2 Sat 93.8% CO2 >40 Cr 1.0 (baseline), BUN 25 (previously 11 on 11/28), GFR 52 viral PCR - negative for influenza, COVID, RSV Start doxycycline 100 mg IVPB q.12, 1st dose on 02/19 Prednisone 40 mg p.o. daily x5 days LR 125 mL/hr--discontinued to prevent fluid overload atrovent/albuterol nebs Q6H prn tyl prn for fever or pain tessalon perles prn mrsa screen sputum culture trial on BIPAP in ED - patient did not tolerate on 2-3L NC at baseline 02/20: IV fluids stopped to prevent fluid overload. Increased Rocephin to 2 grams daily. 02/21: Left lower lobe continues to sound a little junky remainder of lung sounds clear. Patient has productive cough and is using incentive spirometer. Continue Rocephin and doxycycline. (2) UTI (urinary tract infection): Qualifiers: Hematuria presence: with hematuria Urinary tract infection type: acute cystitis Qualified Code(s): N30.01 - Acute cystitis with hematuria Code(s): N39.0 - Urinary tract infection, site not specified Status: Acute Assessment and Plan: UTI UA: cloudy, 2+ leuks, 51-100 WBC, 4+ bacteria UC pending ceftriaxone 1G Q24H, 1st dose on 02/19. await culture/sensitivities 02/20: Rocephin increased to 2 grams due to pneumonia 02/21: Gram-negative bacilli noted in preliminary urine culture. Awaiting identification and sensitivities (3) Weakness: Code(s): R53.1 - Weakness Status: Acute Assessment and Plan: weakness DD: secondary to infection, CVA, dehydration, electrolyte disturbances, [place] Head CT - no acute intracranial abnormality. Age-related findings. EKG SINUS RHYTHM FREQUENT ATRIAL PREMATURE COMPLEXES RIGHT BUNDLE BRANCH BLOCK ABNORMAL ECG COMPARED TO ECG 11/16/2022 19:57:13 RIGHT BUNDLE-BRANCH BLOCK NOW PRESENT troponin negative x1 CXR - possible pna UA: possible UTI, culture pending 02/20: Will order PT/OT (4) COPD (chronic obstructive pulmonary disease): Qualifiers: COPD type: unspecified COPD Qualified Code(s): J44.9 - Chronic obstructive pulmonary disease, unspecified Code(s): J44.9 - Chronic obstructive pulmonary disease, unspecified Status: Chronic Assessment and Plan: Chronic COPD, continue home medications and breathing treatments scheduled and as needed (5) Chronic respiratory failure: Code(s): J96.10 - Chronic respiratory failure, unspecified whether with hypoxia or hypercapnia Status: Acute Assessment and Plan: Acute on chronic hypoxic and hypercapnic respiratory failure on home oxygen 2-3 liters/minute Plan DC telemetry, rhythm has remained sinus arrhythmia with scattered PACs and rate is dependent on activity level Med Rec: completed based on best information available Diet: regular GI Prophylaxis: not indicated DVT Prophylaxis: SCDs, Lovenox Lines: PIV Code Status: Full Code Time Spent With Patient Time with patient: 25 - 35 minutes Subjective Date/time seen: 02/21/23 12:43 Interval history: From previous chart: Chief Complaint: Cough, Weakness Narrative: 88 y/o F presents here with cough and generalized weakness with PMH of COPD, GERD, and depression/anxiety. Patient reports that last night she began having an increased amount of sputum production.? Cough yielding green/brown sputum, no blood. No associated fever, chills, body aches, or SOB.? Reports she has been hospitalized 3 times in last few month
[2023-02-21] MEDS: PRAMIPEXOLE 0.5 MG TABLET PO (20:19)
[2023-02-21] MEDS: AMITRIPTYLINE HCL 25 MG TABLET PO (20:19)
[2023-02-21] MEDS: MELATONIN 3 MG TABLET PO (20:20)
[2023-02-22] VITALS (14 sets, daily range): BP systolic 111–119; BP diastolic 69–75; PULSE 58–84; RESP 16–20; TEMP 36.3–36.7; O2SAT 94–98
[2023-02-22] MEDS: ALBUTEROL SULFATE NEB 2.5 MG/3 ML INH INHALATION ×4 (01:48→20:49)
[2023-02-22 06:05] LABS: Basophils Percent Auto 0.1 % (0.2-1.2); Hematocrit 37.3 % (37.0-47.0); Hemoglobin 11.1 g/dL (12.0-15.0); Immature Granulocyte Absolute 0.08 K/mm3 (0.00-0.031); Lymphocytes Absolute Auto 1.34 K/mm3 (0.9-3.2); Lymphocytes Percent Auto 16.3 % (18.3-44.2); Mean Corpuscular HGB Conc 29.8 g/dl (32-36); Mean Corpuscular Hemoglobin 27.1 pg (26-34); Mean Platelet Volume 10.3 fl (7.4-10.4); Monocytes Absolute Auto 0.5 K/mm3 (0.1-0.6); Monocytes Percent Auto 6.5 % (2.6-8.5); Neutrophils Absolute Auto 6.2 K/mm3 (1.3-6.7); Neutrophils Percent Auto 76.1 % (45.5-73.1); Platelet Count Result 131 k/mm3 (150-375); Red Cell Distribution Width 17.1 % (11.5-14.5); White Blood Count 8.2 K/mm3 (4.5-10.0)
[2023-02-22 06:18] LABS: Alanine Aminotransferase 42 U/L (6-35); Albumin Level 3.6 g/dL (3.5-5.1); Alkaline Phosphatase 89 U/L (38-126); Anion Gap 4 mmol/L (8-16); Aspartate Amino Transferase 39 U/L (14-36); Bilirubin,Total 0.4 mg/dL (0.2-1.3); Blood Urea Nitrogen 16 mg/dL (7-17); Calcium 8.5 mg/dL (8.4-10.2); Carbon Dioxide 39 mmol/L (22-30); Chloride 98 mmol/L (98-107); Estimated Glomerular Filt Rate > 60; Glucose 107 mg/dL (65-110); Potassium 3.7 mmol/L (3.4-5.0); Sodium 141 mmol/L (137-145)
[2023-02-22 07:27] LABS: Anisocytosis 1+ (NORMAL); Hypochromasia 1+ (NORMAL); Schistocytes None Seen (NORMAL)
[2023-02-22] MEDS: ATORVASTATIN 40 MG TABLET 80 MG PO (08:20)
[2023-02-22] MEDS: predniSONE 20 MG TABLET 40 MG PO (08:20)
[2023-02-22] MEDS: BENZONATATE 100 MG CAPSULE PO ×3 (08:21→17:16)
[2023-02-22] MEDS: CITALOPRAM HYDROBROMIDE 20 MG TABLET PO (08:21)
[2023-02-22] MEDS: CHOLECALCIFEROL 1,000 UNITS TABLET 1000 UNITS PO (08:21)
[2023-02-22] MEDS: CLOPIDOGREL BISULFATE 75 MG TABLET PO (08:22)
[2023-02-22] MEDS: FERROUS SULFATE 325 MG TABLET DR PO (08:22)
[2023-02-22] MEDS: ENOXAPARIN 30 MG/0.3 ML SYRINGE SUB-Q (08:22)
[2023-02-22] MEDS: PANTOPRAZOLE 40 MG TABLET PO (08:23)
[2023-02-22] MEDS: FUROSEMIDE 20 MG TABLET PO (08:23)
[2023-02-22] MEDS: MEMANTINE 5 MG TABLET PO ×2 (08:23→17:16)
[2023-02-22] MEDS: PREGABALIN (*CRX) 50 MG CAPSULE 100 MG PO ×2 (08:24→17:16)
[2023-02-22] MEDS: FLUTICASONE/UMECLIDIN/VILANTER 100-62.5-25 MCG ELLIPTA 1 PUFF INHALATION (09:43)
--- NOTE | 2023-02-22 10:12 | PM.IMPN ---
Progress Note: A&P Assessment and Plan (1) Pneumonia: Qualifiers: Pneumonia type: due to unspecified organism Code(s): J18.9 - Pneumonia, unspecified organism Status: Acute Assessment and Plan: Pneumonia CXR: Small lung volumes with unchanged airspace opacities in the left mid and lower lung zones which could represent pneumonia and/or atelectasis. initial labs WBC 14.3 d-dimer 0.73, age adjustment cutoff 0.87 ABG - pH 7.357, pCO2 66.4, pO2 73.8, HCO3 36.4, O2 Sat 93.8% CO2 >40 Cr 1.0 (baseline), BUN 25 (previously 11 on 11/28), GFR 52 viral PCR - negative for influenza, COVID, RSV Start doxycycline 100 mg IVPB q.12, 1st dose on 02/19 Prednisone 40 mg p.o. daily x5 days LR 125 mL/hr--discontinued to prevent fluid overload atrovent/albuterol nebs Q6H prn tyl prn for fever or pain tessalon perles prn mrsa screen sputum culture trial on BIPAP in ED - patient did not tolerate on 2-3L NC at baseline 02/20: IV fluids stopped to prevent fluid overload. Increased Rocephin to 2 grams daily. 02/21: Left lower lobe continues to sound a little junky remainder of lung sounds clear. Patient has productive cough and is using incentive spirometer. Continue Rocephin and doxycycline. 02/22: Antibiotics de-escalated to oral Augmentin and doxycycline partially due to loss of IV access. (2) UTI (urinary tract infection): Qualifiers: Hematuria presence: with hematuria Urinary tract infection type: acute cystitis Qualified Code(s): N30.01 - Acute cystitis with hematuria Code(s): N39.0 - Urinary tract infection, site not specified Status: Acute Assessment and Plan: UTI UA: cloudy, 2+ leuks, 51-100 WBC, 4+ bacteria UC pending ceftriaxone 1G Q24H, 1st dose on 02/19. await culture/sensitivities 02/20: Rocephin increased to 2 grams due to pneumonia 02/21: Gram-negative bacilli noted in preliminary urine culture. Awaiting identification and sensitivities 02/22: Antibiotics de-escalated to oral Augmentin and doxycycline partially due to loss of IV access. Augmentin is appropriate per susceptibilities. (3) Weakness: Code(s): R53.1 - Weakness Status: Acute Assessment and Plan: weakness DD: secondary to infection, CVA, dehydration, electrolyte disturbances, [place] Head CT - no acute intracranial abnormality. Age-related findings. EKG SINUS RHYTHM FREQUENT ATRIAL PREMATURE COMPLEXES RIGHT BUNDLE BRANCH BLOCK ABNORMAL ECG COMPARED TO ECG 11/16/2022 19:57:13 RIGHT BUNDLE-BRANCH BLOCK NOW PRESENT troponin negative x1 CXR - possible pna UA: possible UTI, culture pending 02/20: Will order PT/OT 02/22: I feel like patient would be best served by SNF, will have therapy work with patient again tomorrow and reassess. (4) COPD (chronic obstructive pulmonary disease): Qualifiers: COPD type: unspecified COPD Qualified Code(s): J44.9 - Chronic obstructive pulmonary disease, unspecified Code(s): J44.9 - Chronic obstructive pulmonary disease, unspecified Status: Chronic Assessment and Plan: Chronic COPD, continue home medications and breathing treatments scheduled and as needed (5) Chronic respiratory failure: Code(s): J96.10 - Chronic respiratory failure, unspecified whether with hypoxia or hypercapnia Status: Acute Assessment and Plan: Acute on chronic hypoxic and hypercapnic respiratory failure on home oxygen 2-3 liters/minute Plan Med Rec: completed based on best information available Diet: regular GI Prophylaxis: not indicated DVT Prophylaxis: SCDs, Lovenox Lines: PIV Code Status: Full Code Time Spent With Patient Time with patient: 25 - 35 minutes Subjective Date/time seen: 02/22/23 10:12 Interval history: From previous chart: 02/19: 88 y/o F presents here with cough and generalized weakness with PMH of COPD, GERD, and depression/anxiety. Patient reports
[2023-02-22] MEDS: DOXYCYCLINE HYCLATE 100 MG TABLET PO ×2 (10:42→20:45)
[2023-02-22] MEDS: AMOXICILLIN/CLAVULANATE K 875-125 MG TAB 1 TABLET PO ×2 (10:43→20:45)
[2023-02-22] MEDS: oxyCODONE/ACETAMINOPHEN (*CRX) 5-325 MG TABLET 1 TABLET PO (20:45)
[2023-02-22] MEDS: AMITRIPTYLINE HCL 25 MG TABLET PO (20:45)
[2023-02-22] MEDS: PRAMIPEXOLE 0.5 MG TABLET PO (20:45)
[2023-02-22] MEDS: MELATONIN 3 MG TABLET PO (20:45)
--- NOTE | 2023-02-22 20:54 | PCRCNOTE ---
Pt complains about having hard time coughing up thick secretions. Explained benefits of neb txs and how they could help.
[2023-02-23] VITALS (12 sets, daily range): BP systolic 109–128; BP diastolic 59–80; PULSE 72–84; RESP 18–20; TEMP 36.3–36.9; O2SAT 94–99
[2023-02-23 05:32] LABS: Basophils Percent Auto 0.2 % (0.2-1.2); Hematocrit 35.2 % (37.0-47.0); Hemoglobin 10.6 g/dL (12.0-15.0); Immature Granulocyte Absolute 0.08 K/mm3 (0.00-0.031); Lymphocytes Absolute Auto 1.63 K/mm3 (0.9-3.2); Lymphocytes Percent Auto 19.5 % (18.3-44.2); Mean Corpuscular HGB Conc 30.1 g/dl (32-36); Mean Corpuscular Hemoglobin 26.7 pg (26-34); Mean Corpuscular Volume 88.7 fl (80-100); Mean Platelet Volume 10.4 fl (7.4-10.4); Monocytes Absolute Auto 0.5 K/mm3 (0.1-0.6); Neutrophils Absolute Auto 6.1 K/mm3 (1.3-6.7); Neutrophils Percent Auto 73.3 % (45.5-73.1); Platelet Count Result 153 k/mm3 (150-375); Red Blood Count 3.97 M/mm3 (4.2-5.4); Red Cell Distribution Width 16.7 % (11.5-14.5); White Blood Count 8.4 K/mm3 (4.5-10.0)
[2023-02-23 05:44] LABS: Potassium 3.7 mmol/L (3.4-5.0)
[2023-02-23 05:46] LABS: Alanine Aminotransferase 39 U/L (6-35); Albumin Level 3.1 g/dL (3.5-5.1); Alkaline Phosphatase 80 U/L (38-126); Anion Gap 6 mmol/L (8-16); Aspartate Amino Transferase 33 U/L (14-36); Bilirubin,Total 0.5 mg/dL (0.2-1.3); Blood Urea Nitrogen 15 mg/dL (7-17); Calcium 8.2 mg/dL (8.4-10.2); Carbon Dioxide 35 mmol/L (22-30); Chloride 97 mmol/L (98-107); Estimated Glomerular Filt Rate > 60; Glucose 100 mg/dL (65-110); Sodium 138 mmol/L (137-145)
[2023-02-23] MEDS: ALBUTEROL SULFATE NEB 2.5 MG/3 ML INH INHALATION ×3 (07:39→21:42)
[2023-02-23] MEDS: FLUTICASONE/UMECLIDIN/VILANTER 100-62.5-25 MCG ELLIPTA 1 PUFF INHALATION (07:40)
[2023-02-23] MEDS: AMOXICILLIN/CLAVULANATE K 875-125 MG TAB 1 TABLET PO ×2 (08:39→20:19)
[2023-02-23] MEDS: ATORVASTATIN 40 MG TABLET 80 MG PO (08:39)
[2023-02-23] MEDS: predniSONE 20 MG TABLET 40 MG PO (08:39)
[2023-02-23] MEDS: BENZONATATE 100 MG CAPSULE PO ×3 (08:39→16:27)
[2023-02-23] MEDS: CHOLECALCIFEROL 1,000 UNITS TABLET 1000 UNITS PO (08:39)
[2023-02-23] MEDS: CLOPIDOGREL BISULFATE 75 MG TABLET PO (08:40)
[2023-02-23] MEDS: TOLNAFTATE 1% POWDER 45 GM BTL 1 APPLIC TOPICAL ×2 (08:40→20:20)
[2023-02-23] MEDS: ENOXAPARIN 30 MG/0.3 ML SYRINGE SUB-Q (08:40)
[2023-02-23] MEDS: PREGABALIN (*CRX) 50 MG CAPSULE 100 MG PO ×2 (08:40→16:27)
[2023-02-23] MEDS: CITALOPRAM HYDROBROMIDE 20 MG TABLET PO (08:40)
[2023-02-23] MEDS: FUROSEMIDE 20 MG TABLET PO (08:40)
[2023-02-23] MEDS: MEMANTINE 5 MG TABLET PO ×2 (08:40→16:27)
[2023-02-23] MEDS: PANTOPRAZOLE 40 MG TABLET PO (08:40)
[2023-02-23] MEDS: DOXYCYCLINE HYCLATE 100 MG TABLET PO ×2 (08:40→20:19)
[2023-02-23] MEDS: FERROUS SULFATE 325 MG TABLET DR PO (12:31)
[2023-02-23] MEDS: oxyCODONE/ACETAMINOPHEN (*CRX) 5-325 MG TABLET 1 TABLET PO ×2 (14:30→20:19)
--- NOTE | 2023-02-23 15:14 | PM.IMPN ---
Progress Note: A&P Assessment and Plan (1) Pneumonia: Qualifiers: Pneumonia type: due to unspecified organism Code(s): J18.9 - Pneumonia, unspecified organism Status: Acute Assessment and Plan: Pneumonia CXR: Small lung volumes with unchanged airspace opacities in the left mid and lower lung zones which could represent pneumonia and/or atelectasis. initial labs WBC 14.3 d-dimer 0.73, age adjustment cutoff 0.87 ABG - pH 7.357, pCO2 66.4, pO2 73.8, HCO3 36.4, O2 Sat 93.8% CO2 >40 Cr 1.0 (baseline), BUN 25 (previously 11 on 11/28), GFR 52 viral PCR - negative for influenza, COVID, RSV Start doxycycline 100 mg IVPB q.12, 1st dose on 02/19 Prednisone 40 mg p.o. daily x5 days LR 125 mL/hr--discontinued to prevent fluid overload atrovent/albuterol nebs Q6H prn tyl prn for fever or pain tessalon perles prn mrsa screen sputum culture trial on BIPAP in ED - patient did not tolerate on 2-3L NC at baseline 02/20: IV fluids stopped to prevent fluid overload. Increased Rocephin to 2 grams daily. 02/21: Left lower lobe continues to sound a little junky remainder of lung sounds clear. Patient has productive cough and is using incentive spirometer. Continue Rocephin and doxycycline. 02/22: Antibiotics de-escalated to oral Augmentin and doxycycline partially due to loss of IV access. (2) UTI (urinary tract infection): Qualifiers: Hematuria presence: with hematuria Urinary tract infection type: acute cystitis Qualified Code(s): N30.01 - Acute cystitis with hematuria Code(s): N39.0 - Urinary tract infection, site not specified Status: Acute Assessment and Plan: UTI UA: cloudy, 2+ leuks, 51-100 WBC, 4+ bacteria UC pending ceftriaxone 1G Q24H, 1st dose on 02/19. await culture/sensitivities 02/20: Rocephin increased to 2 grams due to pneumonia 02/21: Gram-negative bacilli noted in preliminary urine culture. Awaiting identification and sensitivities 02/22: Antibiotics de-escalated to oral Augmentin and doxycycline partially due to loss of IV access. Augmentin is appropriate per susceptibilities. (3) Weakness: Code(s): R53.1 - Weakness Status: Acute Assessment and Plan: weakness DD: secondary to infection, CVA, dehydration, electrolyte disturbances, [place] Head CT - no acute intracranial abnormality. Age-related findings. EKG SINUS RHYTHM FREQUENT ATRIAL PREMATURE COMPLEXES RIGHT BUNDLE BRANCH BLOCK ABNORMAL ECG COMPARED TO ECG 11/16/2022 19:57:13 RIGHT BUNDLE-BRANCH BLOCK NOW PRESENT troponin negative x1 CXR - possible pna UA: possible UTI, culture pending 02/20: Will order PT/OT 02/22: I feel like patient would be best served by SNF, will have therapy work with patient again tomorrow and reassess. 02/23: Patient only able ambulate 40 ft significantly worn out by doing so. PT and OT both recommending SNF placement. Referrals have been sent out by case management. Awaiting authorization. (4) COPD (chronic obstructive pulmonary disease): Qualifiers: COPD type: unspecified COPD Qualified Code(s): J44.9 - Chronic obstructive pulmonary disease, unspecified Code(s): J44.9 - Chronic obstructive pulmonary disease, unspecified Status: Chronic Assessment and Plan: Chronic COPD, continue home medications and breathing treatments scheduled and as needed (5) Chronic respiratory failure: Code(s): J96.10 - Chronic respiratory failure, unspecified whether with hypoxia or hypercapnia Status: Acute Assessment and Plan: Acute on chronic hypoxic and hypercapnic respiratory failure on home oxygen 2-3 liters/minute Plan Med Rec: completed based on best information available Diet: regular GI Prophylaxis: not indicated DVT Prophylaxis: SCDs, Lovenox Lines: PIV Code Status: Full Code Disposition: Awaiting SNF referrals/authorization Time Spent With Patient Time with yadira
[2023-02-23] MEDS: PRAMIPEXOLE 0.5 MG TABLET PO (20:19)
[2023-02-23] MEDS: AMITRIPTYLINE HCL 25 MG TABLET PO (20:19)
[2023-02-23] MEDS: MELATONIN 3 MG TABLET PO (20:20)
[2023-02-23] MEDS: IPRATROPIUM BR 0.02% INH SOLN 0.5 MG/2.5 ML VIAL INHALATION (21:42)
[2023-02-24 03:16] LABS: Legionella pneumophila Ag Ur Not Detected (Not Detected)
--- NOTE | 2023-02-24 04:18 | PCRCNOTE ---
Patient asked Respiratory to not wake her for the 0200 updraft treatment. If short of breath, she is to call RN. RN to RT
[2023-02-24 05:34] LABS: Basophils Percent Auto 0.2 % (0.2-1.2); Eosinophils Percent Auto 0.1 % (0-4.4); Hematocrit 38.1 % (37.0-47.0); Hemoglobin 11.4 g/dL (12.0-15.0); Immature Granulocyte Absolute 0.14 K/mm3 (0.00-0.031); Immature Granulocyte Percent A 1.5 % (0-0.5); Lymphocytes Absolute Auto 2.02 K/mm3 (0.9-3.2); Lymphocytes Percent Auto 21.7 % (18.3-44.2); Mean Corpuscular HGB Conc 29.9 g/dl (32-36); Mean Corpuscular Hemoglobin 26.5 pg (26-34); Mean Corpuscular Volume 88.4 fl (80-100); Mean Platelet Volume 9.8 fl (7.4-10.4); Monocytes Absolute Auto 0.7 K/mm3 (0.1-0.6); Monocytes Percent Auto 7.1 % (2.6-8.5); Neutrophils Absolute Auto 6.5 K/mm3 (1.3-6.7); Neutrophils Percent Auto 69.4 % (45.5-73.1); Platelet Count Result 157 k/mm3 (150-375); Red Blood Count 4.31 M/mm3 (4.2-5.4); Red Cell Distribution Width 16.5 % (11.5-14.5); White Blood Count 9.3 K/mm3 (4.5-10.0)
[2023-02-24 05:43] LABS: Alanine Aminotransferase 40 U/L (6-35); Albumin Level 3.4 g/dL (3.5-5.1); Alkaline Phosphatase 81 U/L (38-126); Anion Gap 7 mmol/L (8-16); Aspartate Amino Transferase 29 U/L (14-36); Bilirubin,Total 0.5 mg/dL (0.2-1.3); Blood Urea Nitrogen 19 mg/dL (7-17); Calcium 8.3 mg/dL (8.4-10.2); Carbon Dioxide 34 mmol/L (22-30); Chloride 96 mmol/L (98-107); Estimated Glomerular Filt Rate > 60; Glucose 93 mg/dL (65-110); Potassium 3.6 mmol/L (3.4-5.0); Sodium 137 mmol/L (137-145)
[2023-02-24 06:00] VITALS: BP 125/76; PULSE 59; RESP 20; TEMP 36.1; O2SAT 99
[2023-02-24 06:33] LABS: Burr Cells 1+ (NORMAL); Hypochromasia 1+ (NORMAL); Platelet Estimate Adequate (Adequate); Poikilocytosis 1+ (NORMAL); Schistocytes None Seen (NORMAL)
[2023-02-24 07:37] VITALS: PULSE 72; RESP 20; O2SAT 94
[2023-02-24] MEDS: ALBUTEROL SULFATE NEB 2.5 MG/3 ML INH INHALATION ×2 (07:37→14:21)
[2023-02-24] MEDS: FLUTICASONE/UMECLIDIN/VILANTER 100-62.5-25 MCG ELLIPTA 1 PUFF INHALATION (07:39)
[2023-02-24 07:54] VITALS: PULSE 76; RESP 20
[2023-02-24] MEDS: PREGABALIN (*CRX) 50 MG CAPSULE 100 MG PO (08:55)
[2023-02-24] MEDS: CITALOPRAM HYDROBROMIDE 20 MG TABLET PO (08:56)
[2023-02-24] MEDS: FUROSEMIDE 20 MG TABLET PO (08:56)
[2023-02-24] MEDS: ATORVASTATIN 40 MG TABLET 80 MG PO (08:56)
[2023-02-24] MEDS: DOXYCYCLINE HYCLATE 100 MG TABLET PO (08:56)
[2023-02-24] MEDS: predniSONE 20 MG TABLET 40 MG PO (08:56)
[2023-02-24] MEDS: BENZONATATE 100 MG CAPSULE PO ×2 (08:56→12:15)
[2023-02-24] MEDS: CLOPIDOGREL BISULFATE 75 MG TABLET PO (08:56)
[2023-02-24] MEDS: MEMANTINE 5 MG TABLET PO (08:56)
[2023-02-24] MEDS: CHOLECALCIFEROL 1,000 UNITS TABLET 1000 UNITS PO (08:56)
[2023-02-24] MEDS: AMOXICILLIN/CLAVULANATE K 875-125 MG TAB 1 TABLET PO (08:56)
[2023-02-24] MEDS: PANTOPRAZOLE 40 MG TABLET PO (08:56)
[2023-02-24] MEDS: TOLNAFTATE 1% POWDER 45 GM BTL 1 APPLIC TOPICAL (08:57)
[2023-02-24] MEDS: ENOXAPARIN 30 MG/0.3 ML SYRINGE SUB-Q (08:58)
[2023-02-24 09:05] VITALS: O2SAT 94
[2023-02-24] MEDS: FERROUS SULFATE 325 MG TABLET DR PO (12:15)
[2023-02-24] MEDS: oxyCODONE/ACETAMINOPHEN (*CRX) 5-325 MG TABLET 1 TABLET PO (12:15)
--- NOTE | 2023-02-24 13:42 | PM.DS ---
DS: Admitting Diagnosis Discharge Date 02/24/2023 Admitting Diagnosis pneumonia, UTI, weakness DS: Discharge Diagnosis Discharge Diagnosis (1) Pneumonia: Qualifiers: Pneumonia type: due to unspecified organism Code(s): J18.9 - Pneumonia, unspecified organism Status: Acute (2) UTI (urinary tract infection): Qualifiers: Hematuria presence: with hematuria Urinary tract infection type: acute cystitis Qualified Code(s): N30.01 - Acute cystitis with hematuria Code(s): N39.0 - Urinary tract infection, site not specified Status: Acute (3) Weakness: Code(s): R53.1 - Weakness Status: Acute (4) COPD (chronic obstructive pulmonary disease): Qualifiers: COPD type: unspecified COPD Qualified Code(s): J44.9 - Chronic obstructive pulmonary disease, unspecified Code(s): J44.9 - Chronic obstructive pulmonary disease, unspecified Status: Chronic (5) Chronic respiratory failure: Code(s): J96.10 - Chronic respiratory failure, unspecified whether with hypoxia or hypercapnia Status: Acute Assessment and Plan: Acute on chronic hypoxic and hypercapnic respiratory failure on home oxygen 2-3 liters/minute DS: Summary Hospital Course Reason for hospitalization: patient was admitted due to cough generalized weakness increased sputum found to have UTI and pneumonia Hospital Course: 02/19:? 88 y/o F presents here with cough and generalized weakness with PMH of COPD, GERD, and depression/anxiety. Patient reports that last night she began having an increased amount of sputum production.? Cough yielding green/brown sputum, no blood. No associated fever, chills, body aches, or SOB.? Reports she has been hospitalized 3 times in last few months, more recent on 11/17-11/28 due to a fall with multiple rib fxs.? Patient also developed an increased amount of generalized weakness.? States she was sitting in a chair this morning and attempted to use her arms to push herself up and out of the chair and was unable to.? Caregiver who sees patient 4 times a week was present and urged patient to come be evaluated.? Patient reports that usually when she becomes generally weak is due to UTI, baseline incontinence.? Reports that she has had multiple bladder surgeries which is why she developed incontinence/frequency.? No current dysuria or hematuria.? Currently able to answer orientation questions (self, place, year) but staff who have been apart of her care have noted intermittent confusion that is more situational or recent history.? Of note, patient also reports clonus in her upper and lower extremities (upper worse than lower) after previous spinal surgeries that has been it is progressively getting worse over the last few years.? Upper extremity clonus observed on exam. 02/20:? Patient seated upright in bed with supplemental oxygenation and place.? She is awake alert oriented and pleasant.? Patient reports that she had a scruff worker appointment within the last 2 weeks where aspirin was stopped and a blood thinner was started.? She cannot recall the name of the blood thinner and it is noted prior records.? Telemetry monitoring shows irregularly irregular rhythm.? EKG obtained showing sinus arrhythmia with occasional PAC but P waves are uniform in present before the majority QRS complexes.? Patient reports she saw her jockey agent a few days ago and was perfectly fine then when she got home that day she began coughing and having difficulty breathing.? Since then she has been getting worse and more weak.? Patient denies chest pain, nausea, vomiting, bowel or bladder problems at this time. 02/21:? Patient awake and alert sitting up in the bed just finished eating lunch.? Supplemental oxygenation and place.? Patient reports cough with mild shortness of breath but otherwise states that she is feeling a little bit better.? Patient denies any chest pain nausea vomiting bowel or bladder problem
[2023-02-24 14:21] VITALS: PULSE 84; RESP 20
[2023-02-24 14:30] VITALS: PULSE 86; RESP 20
[2023-02-25 00:43] LABS: Pneumococcal Antigen Urine Not Detected (Not Detected)
== END 2023-02-24 15:51 | DRG 194 ==
LOC: ANHED 13:20 → ANH3MED 17:48
PROVIDERS: Internal Medicine; Admitting Provider Internal Medicine; Emergency Provider Student in an Organized Health Care Education/Training Program; PCP Physician Assistant; Visit Provider Nurse Practitioner
DX: J18.9 Pneumonia, unspecified organism (principal); E87.29 Other acidosis; J44.0 Chronic obstructive pulmonary disease with (acute) lower respiratory infection; J96.10 Chronic respiratory failure, unspecified whether with hypoxia or hypercapnia; N39.0 Urinary tract infection, site not specified; D69.6 Thrombocytopenia, unspecified; K21.9 Gastro-esophageal reflux disease without esophagitis; K44.9 Diaphragmatic hernia without obstruction or gangrene; R32 Unspecified urinary incontinence; F32.A Depression, unspecified; F41.9 Anxiety disorder, unspecified; Z20.822 Contact with and (suspected) exposure to COVID-19; Z79.02 Long term (current) use of antithrombotics/antiplatelets; Z87.891 Personal history of nicotine dependence; Z99.81 Dependence on supplemental oxygen
CPT/HCPCS: 36415; 36600; 70450; 71046; 80048; 80053; 81001; 82805; 83735; 84484; 85025; 85380; 87070; 87077; 87081; 87086; 87088; 87186; 87205; 87449; 87637; 87899; 93005; 94002; 94640; 97110; 97161; 97165; 97530; 97535; 99285; A9270; J0696; J1650; J7120; J7512

== ENCOUNTER 2023-04-14 10:03 | Inpatient (IN) | payer MEDICARE, SELFPAY ==
[2023-04-14] VITALS (10 sets, daily range): BP systolic 93–140; BP diastolic 66–87; PULSE 63–122; RESP 16–28; TEMP 35.9–36.6; O2SAT 90–98; BMI 31.2
--- NOTE | ~2023-04-14 | XR_ITS ---
Clinical Indication: Cough AP and lateral views of the chest: Comparison: 02/23/2023 Findings: There is increased hazy airspace disease about the right hilum. There is discoid atelectasi s or scarring on the lateral view.. Cardiomediastinal silhouette is within normal limits. Suspected sliding moderate hiatal hernia. There are compression fractures of T12 and L1, with T12 vertebroplast y cement.. Impression: Increased hazy airspace disease right perihilar region. Correlate for vascular congestion/pulmonary e chano versus possibly pneumonia. Discoid atelectasis or scarring on the lateral view. Suspected moderate sliding hiatal hernia. Compression fractures, as detailed above. Reviewed, dictated and finalized at [facility]. NE MERCHANDISING SPECIALIST Impression: Increased hazy airspace disease right perihilar region. Correlate for vascular congestion/pulmonary edema versus possibly pneumonia. Discoid atelectasis or scarring on the lateral view. Suspected moderate sliding hiatal hernia. Compression fractures, as detailed above.
--- NOTE | ~2023-04-14 | XR_ITS ---
EXAMINATION: XR chest 2V DATE: 04/16/2023 12:08 INDICATION: Aspiration concern TECHNIQUE: frontal and lateral views of the chest were obtained. COMPARISON: Chest radiograph dated 04/14/2023 FINDINGS: Persistent linear and bandlike opacities in the bilateral mid and lower lung zones consistent with ch ronic atelectasis/scarring. There is been interval improvement of more patchy airspace opacities in t he left lower lobe best evident on the lateral projection. No pleural effusion or pneumothorax. Heart size is normal. Moderate to large hiatal hernia. Cholecystectomy clips in right upper quadrant. T12 vertebroplasty. Additional chronic compression fractures at T11, L1 and L2. Moderate thoracic spondyl osis. Partially visualized bilateral vertical marco antonio and lateral mass screw fixation for posterior spina l fusion in the mid cervical spine. IMPRESSION: 1. Significant decrease in prior patchy airspace opacities in the left lower lobe consistent with imp roving aspiration or pneumonia. 2. Persistent linear and bandlike opacities in bilateral mid and lower lung zones consistent with chr onic discoid atelectasis/scarring. Reviewed, dictated and finalized at [facility] ELECTRICIAN IMPRESSION: 1. Significant decrease in prior patchy airspace opacities in the left lower lo be consistent with improving aspiration or pneumonia. 2. Persistent linear and bandlike opacities in bilateral mid and lower lung zon es consistent with chronic discoid atelectasis/scarring.
--- NOTE | 2023-04-14 10:05 | ED.FEMALEGU ---
HPI - Female Genitourinary General Chief complaint: Fall Stated complaint: possible uti Time Seen by Provider: 04/14/23 10:05 Source: patient and EMS Mode of arrival: ambulatory Limitations: no limitations History of Present Illness HPI Narrative: Jazmin is an 88-year-old female patient presenting to the ER via EMS for weakness, possible UTI. Patient was home and slid out of the chair. She denies any pain or injury. States that she believes that she has a urinary tract infection and feels weak. Denies any chest pain or shortness of breath. History of COPD, recurrent UTIs, and chronic GERD Related Data Home Medications Medication Instructions Recorded Confirmed furosemide 20 mg tablet 20 mg PO DAILY 10/23/20 02/24/23 atorvastatin 80 mg tablet 80 mg PO DAILY 03/04/22 02/24/23 clopidogrel 75 mg tablet 75 mg PO DAILY 03/04/22 02/24/23 memantine 5 mg tablet 5 mg PO BID 03/04/22 02/24/23 pramipexole 0.5 mg tablet (Mirapex) 0.5 mg PO HS 03/07/22 02/24/23 ferrous sulfate 325 mg (65 mg 325 mg PO DAILY 10/01/22 02/24/23 iron) tablet pregabalin 100 mg capsule 100 mg PO BID 10/01/22 02/24/23 albuterol sulfate 2.5 mg/3 mL 2.5 mg inhalation Q8H PRN wheezing 10/13/22 02/24/23 (0.083 %) solution for nebulization amitriptyline 25 mg tablet 25 mg PO QHS 10/13/22 02/24/23 cholecalciferol (vitamin D3) 25 25 mcg PO DAILY 10/13/22 02/24/23 mcg (1,000 unit) capsule (Vitamin D3) nystatin 100,000 unit/gram topical 1 applic topical DAILY 11/17/22 02/24/23 powder citalopram 20 mg tablet 20 mg PO DAILY 02/20/23 02/24/23 Allergies Allergy/AdvReac Type Severity Reaction Status Date / Time chlorpromazine Allergy Unknown Unknown Verified 02/24/23 18:23 [From Thorazine] diphenhydramine Allergy Unknown Unknown Verified 02/24/23 18:23 [From Benadryl] rofecoxib [From Vioxx] Allergy Unknown Unknown Verified 02/24/23 18:23 meperidine [From Demerol] Allergy Unknown Verified 02/24/23 18:23 zolpidem [From Ambien] Allergy Unknown Verified 02/24/23 18:23 Review of Systems Review of Systems: Pertinent positives per HPI. Patient denies any fever, chills, rash, headache, visual changes, dizziness, cough, runny nose, sore throat, shortness of breath, chest pain, palpitations, nausea, vomiting, diarrhea, constipation, abdominal pain, or any urinary issues. [facility] Past Medical History Medical History Acute exacerbation of chronic obstructive airways disease Chronic GERD COPD (chronic obstructive pulmonary disease) Depression with anxiety Hiatal hernia Surgical History Surgical History H/O bladder repair surgery H/O breast surgery H/O colonoscopy H/O esophagogastroduodenoscopy H/O foot surgery H/O hernia repair H/O Spinal surgery H/O wrist surgery H/O: hysterectomy Hx of cataract extraction Hx of cholecystectomy S/P cervical spinal fusion S/P tonsillectomy Family History Family History Father Bladder cancer Mother Hypertension Depression Sibling Asthma Hypertension Depression Grandparent Hypertension Heart disease Cerebrovascular accident Grandparent Alcoholism Lung cancer Social History Social History Social History: The patient is and has 3 children. 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 She tells me she was a former smoker. She chronically wears oxygen at home. She does not have a durable power immigration attorney for healthcare. She has an alcoholic beverage approximately 4 times per week. Code status full code Smoking packs per day: 1 Smoking cigarettes per day: 20.0 Years smoked: 45 Smoking pack-years: 45.00 Smoking status: Former smoker Tobacco type: cigarettes Second hand tobacco smoke exposure: No Alcohol intake: unk
--- NOTE | 2023-04-14 10:20 | ECG_ITS ---
Measurements Intervals [place] Rate: 97 P: 60 DE: 162 QRS: 31 QRSD: 137 T: -20 QT: 364 QTc: 464 Interpretive Statements SINUS RHYTHM ATRIAL COUPLETS AND ATRIAL PREMATURE COMPLEXES RIGHT BUNDLE BRANCH BLOCK BORDERLINE ST-T WAVE ABNORMALITY- INFERIOR LEADS BASELINE WANDER- V4-V5 ABNORMAL ECG COMPARED TO ECG 02/20/2023 13:09:13 NO SIGNIFICANT CHANGES Electronically Signed On 04-14-2023 12:09:34 SCRAP PREPARATION SUPERVISOR by Cristian Sanchez D.O.
[2023-04-14 11:10] LABS: Basophils Percent Auto 0.6 % (0.2-1.2); Eosinophils Percent Auto 0.3 % (0-4.4); Hematocrit 37.4 % (37.0-47.0); Hemoglobin 10.5 g/dL (12.0-15.0); Immature Granulocyte Absolute 0.03 K/mm3 (0.00-0.031); Immature Granulocyte Percent A 0.4 % (0-0.5); Lymphocytes Absolute Auto 1.22 K/mm3 (0.9-3.2); Lymphocytes Percent Auto 17.7 % (18.3-44.2); Mean Corpuscular HGB Conc 28.1 g/dl (32-36); Mean Corpuscular Hemoglobin 26.4 pg (26-34); Mean Corpuscular Volume 94.2 fl (80-100); Mean Platelet Volume 9.9 fl (7.4-10.4); Monocytes Absolute Auto 0.9 K/mm3 (0.1-0.6); Monocytes Percent Auto 13.2 % (2.6-8.5); Neutrophils Absolute Auto 4.7 K/mm3 (1.3-6.7); Neutrophils Percent Auto 67.8 % (45.5-73.1); Platelet Count Result 229 k/mm3 (150-375); Red Blood Count 3.97 M/mm3 (4.2-5.4); Red Cell Distribution Width 16.4 % (11.5-14.5); White Blood Count 6.9 K/mm3 (4.5-10.0)
[2023-04-14 11:20] LABS: Lactic Acid Reflex 1.1 mmol/L (0.7-2.0)
[2023-04-14 11:22] LABS: Prothrombin Time 13.9 Seconds (11.1-14.7)
[2023-04-14 11:23] LABS: Alanine Aminotransferase 19 U/L (6-35); Albumin Level 3.5 g/dL (3.5-5.1); Alkaline Phosphatase 97 U/L (38-126); Aspartate Amino Transferase 21 U/L (14-36); Bilirubin,Total 0.7 mg/dL (0.2-1.3); Blood Urea Nitrogen 27 mg/dL (7-17); Calcium 8.6 mg/dL (8.4-10.2); Carbon Dioxide > 40 mmol/L (22-30); Chloride 93 mmol/L (98-107); Estimated Glomerular Filt Rate > 60; Glucose 118 mg/dL (65-110); Potassium 3.8 mmol/L (3.4-5.0); Sodium 140 mmol/L (137-145)
[2023-04-14 11:29] LABS: Appearance Urine Cloudy (Clear); Bacteria Urine 4+ /hpf; Bilirubin Urine Negative (Negative); Blood Urine Negative (Negative); Color Urine Yellow (Yellow); Glucose Urine UA Negative (Negative); Ketones Urine Trace mg/dL (Negative); Leukocyte Esterase Ur 1+ LEU/UL (Negative); Need Manual Microscopic Reviewed; Nitrate Urine Positive (Negative); Non Pathogenic Casts 0-2; Protein Urine 2+ mg/dL (Negative); RBC Urine 0-2 /hpf (0-2); Squamous Epithelial Cell Urine None seen /hpf (Few); pH Urine 5.5 (5.0-9.0)
[2023-04-14 11:30] LABS: Add Urine Microscopic? YES
[2023-04-14] MEDS: SODIUM CHLORIDE 0.9% IV 1,000 ML 125 ML IV CONT ×2 (14:39→22:30)
--- NOTE | 2023-04-14 15:06 | PC.NURSE ---
Pt incontinent of urine & bowel. Depend changed, pt cleansed
--- NOTE | 2023-04-14 15:42 | PC.NURSE ---
Pt given lunch tray. IV infusing via IVAC.
--- NOTE | 2023-04-14 17:00 | ADMGEN ---
This patient, Jazmin Bullard, was admitted to 2 Medical Room 255-01. Patient/family oriented to hospital policies and general routines including ID bracelet, bed and alarms, visiting hours, pain management, procedures, bathroom and other care routines, personal items, smoking policy, room service/diet, and visiting hours. Information on how to activate the Rapid Response Team has been discussed. Patient/Family are encouraged to report perceived risks to care and to ask questions if they do not understand what they are told or what they should do.
--- NOTE | 2023-04-14 20:45 | PM.IMHP ---
H&P: HPI History of Present Illness Date/Time: 04/14/23 20:45 Chief Complaint: Patient brought to the ER for evaluation after sliding out of her chair and falling at home Narrative: She is a pleasant lady with recurrent UTIs who was at home sitting in the chair when she slid out, fell and landed on her buttocks. Family got concerned and brought her to the ER for evaluation. Workup was done which showed another episode of UTI. She is also complaining of cough with greenish sputum for the last few days. Chest x-ray was done which showed increased hazy airspace disease in the right perihilar region. She is being admitted for medical management, IV antibiotics and close monitoring. Review of Systems Review of Systems: 14 systems were reviewed with pertinent positives and negatives per HPI. Except as documented in the HPI/progress notes, all other systems were reviewed and are negative. All systems reviewed & are unremarkable except as noted in HPI and below PMFSH Past Medical History Medical History (Updated 04/14/23 @ 22:07 by Stanton Galindo MD) Acute exacerbation of chronic obstructive airways disease Chronic GERD COPD (chronic obstructive pulmonary disease) Depression with anxiety Hiatal hernia Recurrent UTI Surgical History Surgical History H/O bladder repair surgery H/O breast surgery H/O colonoscopy H/O esophagogastroduodenoscopy H/O foot surgery H/O hernia repair H/O Spinal surgery H/O wrist surgery H/O: hysterectomy Hx of cataract extraction Hx of cholecystectomy S/P cervical spinal fusion S/P tonsillectomy Family History Family History Father Bladder cancer Mother Hypertension Depression Sibling Asthma Hypertension Depression Grandparent Hypertension Heart disease Cerebrovascular accident Grandparent Alcoholism Lung cancer Social History Social History Social History: The patient is and has 3 children. 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 She tells me she was a former smoker. She chronically wears oxygen at home. She does not have a durable power public relations coordinator for healthcare. She has an alcoholic beverage approximately 4 times per week. Code status full code Smoking packs per day: 1 Smoking cigarettes per day: 20.0 Years smoked: 45 Smoking pack-years: 45.00 Smoking status: Former smoker Second hand tobacco smoke exposure: No Alcohol intake: former Drinks per week: 1 Substance use: never Substance use type: does not use Do You Feel Safe in your Home?: Yes Lack of Transportation: No Lack of Food: Never True Current Housing: I Have Housing Concerned About Future Housing: No Difficulty Paying Gas/Electric Bills: No Difficulty Paying for Meds: No Currently Unemployed: No Education: Associate Degree Difficulty w/ Childcare or Family Care: No Spiritual care concerns: No Meds Home Medications and Allergies Home Medications Medication Instructions Recorded Confirmed Type furosemide 20 mg tablet 20 mg PO DAILY 10/23/20 04/14/23 History atorvastatin 80 mg tablet 80 mg PO DAILY 03/04/22 04/14/23 History clopidogrel 75 mg tablet 75 mg PO DAILY 03/04/22 04/14/23 History memantine 5 mg tablet 5 mg PO BID 03/04/22 04/14/23 History pramipexole 0.5 mg tablet (Mirapex) 0.5 mg PO HS 03/07/22 04/14/23 History ferrous sulfate 325 mg (65 mg 325 mg PO DAILY 10/01/22 04/14/23 History iron) tablet pregabalin 100 mg capsule 100 mg PO BID 10/01/22 04/14/23 History bisacodyl 5 mg tablet,delayed 10 mg PO DAILY PRN Constipation #7 10/04/22 04/14/23 Rx release (Laxative (bisacodyl)) tabs albuterol sulfate 2.5 mg/3 mL 2.5 mg inhalation Q8H PRN wheezing 10/13/22 04/14/23 History (0.083 %) solution for nebulization amitriptyline 25 mg tablet 25 mg PO QHS 10/13/22
[2023-04-14] MEDS: ACETAMINOPHEN 325 MG TABLET 650 MG PO (22:31)
[2023-04-14 23:02] LABS: Basophils Percent Auto 0.4 % (0.2-1.2); Eosinophils Absolute Auto 0.2 K/mm3 (0-0.3); Eosinophils Percent Auto 2.1 % (0-4.4); Hematocrit 35.8 % (37.0-47.0); Hemoglobin 10.3 g/dL (12.0-15.0); Immature Granulocyte Absolute 0.02 K/mm3 (0.00-0.031); Immature Granulocyte Percent A 0.3 % (0-0.5); Lymphocytes Absolute Auto 1.52 K/mm3 (0.9-3.2); Lymphocytes Percent Auto 21.2 % (18.3-44.2); Mean Corpuscular HGB Conc 28.8 g/dl (32-36); Mean Corpuscular Hemoglobin 26.8 pg (26-34); Mean Platelet Volume 9.8 fl (7.4-10.4); Monocytes Percent Auto 13.2 % (2.6-8.5); Neutrophils Absolute Auto 4.5 K/mm3 (1.3-6.7); Neutrophils Percent Auto 62.8 % (45.5-73.1); Platelet Count Result 212 k/mm3 (150-375); Red Blood Count 3.85 M/mm3 (4.2-5.4); Red Cell Distribution Width 16.3 % (11.5-14.5); White Blood Count 7.2 K/mm3 (4.5-10.0)
[2023-04-14 23:12] LABS: Anion Gap 6 mmol/L (8-16); Blood Urea Nitrogen 23 mg/dL (7-17); Calcium 8.2 mg/dL (8.4-10.2); Carbon Dioxide 38 mmol/L (22-30); Chloride 96 mmol/L (98-107); Estimated Glomerular Filt Rate > 60; Glucose 114 mg/dL (65-110); Magnesium 2.2 mg/dL (1.6-2.3); Phosphorus 3.1 mg/dL (2.5-4.5); Potassium 3.6 mmol/L (3.4-5.0); Sodium 140 mmol/L (137-145)
[2023-04-14] MEDS: guaiFENesin/DEXTROMETHORPHAN 10 ML UDC PO (23:35)
[2023-04-14] MEDS: AZITHROMYCIN 500 MG/NS 250 ML 500 MG/250 ML BAG 250 MG IVPB (23:36)
[2023-04-14 23:37] LABS: Hypochromasia 1+ (NORMAL); Large Platelets Present; Ovalocytes 1+ (NORMAL); Platelet Estimate Adequate (Adequate); Schistocytes None Seen (NORMAL)
[2023-04-15] VITALS (9 sets, daily range): BP systolic 110–154; BP diastolic 64–95; PULSE 60–97; RESP 12–20; TEMP 35.7–36.6; O2SAT 90–100
[2023-04-15] MEDS: oxyCODONE/ACETAMINOPHEN (*CRX) 5-325 MG TABLET 1 TABLET PO ×4 (02:48→18:51)
[2023-04-15] MEDS: MELATONIN 5 MG TABLET PO (02:48)
--- NOTE | 2023-04-15 03:24 | PCRCNOTE ---
PCS result notification was entered by nurse stating pt has a home trilogy. RT went to speak with pt on 04/14/23 at 2100 regarding this. No home trilogy was in the room. RT asked pt about this and pt states she does not have one and has not used one for more than 20 years. Pt denied using a hospital unit. She does not use a unit at home
[2023-04-15] MEDS: guaiFENesin/DEXTROMETHORPHAN 10 ML UDC PO (06:43)
--- NOTE | 2023-04-15 07:28 | PM.IMPN ---
Progress Note: A&P Assessment and Plan (1) UTI (urinary tract infection): Qualifiers: Hematuria presence: with hematuria Urinary tract infection type: acute cystitis Qualified Code(s): N30.01 - Acute cystitis with hematuria Code(s): N39.0 - Urinary tract infection, site not specified Status: Acute (2) Weakness: Code(s): R53.1 - Weakness Status: Acute (3) Debilitated: Code(s): R53.81 - Other malaise Status: Acute (4) Cough: Code(s): R05.9 - Cough, unspecified Status: Acute (5) Chronic GERD: Code(s): K21.9 - Gastro-esophageal reflux disease without esophagitis Status: Chronic (6) COPD (chronic obstructive pulmonary disease): Qualifiers: COPD type: unspecified COPD Qualified Code(s): J44.9 - Chronic obstructive pulmonary disease, unspecified Code(s): J44.9 - Chronic obstructive pulmonary disease, unspecified Status: Chronic Plan UTI: History of recurrent UTIs -continue to monitor for urine culture results -blood cultures pending -s/p: Ceftriaxone 1 g given in the ED, will consider de escalation in the a.m. -continue ceftriaxone 1 g IV Q 24 hours at this time Weakness/debilitated: Patient was at home had episode of sliding out of chair denies any LOC or head injury -initiate fall risk -up with assistance only -PT/OT eval and treat Anemia: hgb 10.3 -continue to monitor daily Hyperlipidemia: continue home medication -continue atorvastatin 80mg P.O Chronic obstructive pulmonary disease: Ongoing chronic cough nonproductive -continue monitor oxygen therapy titration, maintain SpO2 above 92% -continue Robitussin some p.r.n. for cough -continue azithromycin 500 mg IV x2 more doses -continue fluticasone(Trelegy) 1 puff daily GERD: -continue pantoprazole 40 mg p.o. every day continue home medications: Amitriptyline HcL at HS Clopidogrel 75 mg P.O Citalopram Melatonin Memantine DVT prophylaxis: Enoxaparin 40 mg subcu daily Diet: Regular diet Anticipated hospital stay: GREATER THAN 2 DAYS Subjective Date/time seen: 04/15/23 07:28 Interval history: Chief Complaint: Patient brought to the ER for evaluation after sliding out of her chair and falling at home Narrative: She is a pleasant lady with recurrent UTIs who was at home sitting in the chair when she slid out, fell and landed on her buttocks.? Family got concerned and brought her to the ER for evaluation.? Workup was done which showed another episode of UTI.? She is also complaining of cough with greenish sputum for the last few days.? Chest x-ray was done which showed increased hazy airspace disease in the right perihilar region. She is being admitted for medical management, IV antibiotics and close monitoring. 04/15/2022: Patient seen this morning by the bedside, she is resting with eyes open, she denies any overnight events. Reports an ongoing chronic non-productive cough, she denies any chest pain, n/v, fever or chills. Review of Systems Review of Systems: 14 systems were reviewed with pertinent positives and negatives per HPI. Except as documented in the HPI/progress notes, all other systems were reviewed and are negative. All systems reviewed & are unremarkable except as noted in HPI and below Exam Narrative: PHYSICAL EXAMINATION: Vital signs: Please see the chart General physical exam: Patient resting in bed, with mild fatigue, continues with some cough, pleasant and cooperative Head/eyes: Atraumatic, EOMI, PERRLA ENT: Moist mucous membranes, nasal passages clear Neck: Supple, full range of motion, trachea midline CVS: S1 + S2, regular rate and rhythm, no murmurs Respiratory: Bilaterally fair air entry in both lung rosas, + scattered mild bilateral crackles Abdomen: Soft, non-tender, bowel sounds +ve, no organomegaly Extremities: No clubbing, no cyanosis, no edema, no calf tenderness Musculoskeletal: Moves all, adequate ra
[2023-04-15] MEDS: ATORVASTATIN 40 MG TABLET 80 MG PO (07:49)
[2023-04-15] MEDS: FUROSEMIDE 20 MG TABLET PO (07:50)
[2023-04-15] MEDS: CLOPIDOGREL BISULFATE 75 MG TABLET PO (07:50)
[2023-04-15] MEDS: FERROUS SULFATE 325 MG TABLET DR PO (07:50)
[2023-04-15] MEDS: CITALOPRAM HYDROBROMIDE 20 MG TABLET PO (07:50)
[2023-04-15] MEDS: ENOXAPARIN 40 MG/0.4 ML SYRINGE SUB-Q (07:50)
[2023-04-15] MEDS: CHOLECALCIFEROL 1,000 UNITS TABLET 1000 UNITS PO (07:50)
[2023-04-15] MEDS: PREGABALIN (*CRX) 50 MG CAPSULE 100 MG PO ×2 (07:51→16:37)
[2023-04-15] MEDS: PANTOPRAZOLE 40 MG TABLET PO (07:51)
[2023-04-15] MEDS: MEMANTINE 5 MG TABLET PO ×2 (07:51→22:18)
[2023-04-15] MEDS: guaiFENesin 12 HR 600 MG TABCR PO ×2 (07:51→22:18)
[2023-04-15] MEDS: FLUTICASONE/UMECLIDIN/VILANTER 100-62.5-25 MCG ELLIPTA 1 PUFF INHALATION (08:16)
[2023-04-15] MEDS: SODIUM CHLORIDE 0.9% IV 1,000 ML 125 ML IV CONT (14:52)
[2023-04-15] MEDS: MELATONIN 3 MG TABLET PO (22:18)
[2023-04-15] MEDS: AMITRIPTYLINE HCL 25 MG TABLET PO (22:19)
[2023-04-15] MEDS: PRAMIPEXOLE 0.5 MG TABLET PO (22:19)
[2023-04-15] MEDS: AZITHROMYCIN 500 MG/NS 250 ML 500 MG/250 ML BAG 250 MG IVPB (22:19)
[2023-04-15 23:06] LABS: Basophils Percent Auto 0.5 % (0.2-1.2); Eosinophils Absolute Auto 0.4 K/mm3 (0-0.3); Eosinophils Percent Auto 6.3 % (0-4.4); Hematocrit 33.4 % (37.0-47.0); Hemoglobin 9.7 g/dL (12.0-15.0); Immature Granulocyte Absolute 0.03 K/mm3 (0.00-0.031); Immature Granulocyte Percent A 0.5 % (0-0.5); Lymphocytes Percent Auto 29.1 % (18.3-44.2); Mean Corpuscular Hemoglobin 27.1 pg (26-34); Mean Corpuscular Volume 93.3 fl (80-100); Monocytes Absolute Auto 0.7 K/mm3 (0.1-0.6); Neutrophils Absolute Auto 3.5 K/mm3 (1.3-6.7); Neutrophils Percent Auto 53.6 % (45.5-73.1); Platelet Count Result 202 k/mm3 (150-375); Red Blood Count 3.58 M/mm3 (4.2-5.4); Red Cell Distribution Width 16.1 % (11.5-14.5); White Blood Count 6.5 K/mm3 (4.5-10.0)
[2023-04-15 23:31] LABS: Blood Urea Nitrogen 14 mg/dL (7-17); Calcium 7.8 mg/dL (8.4-10.2); Carbon Dioxide > 40 mmol/L (22-30); Chloride 97 mmol/L (98-107); Estimated Glomerular Filt Rate > 60; Glucose 119 mg/dL (65-110); Potassium 3.3 mmol/L (3.4-5.0); Sodium 139 mmol/L (137-145)
[2023-04-16] VITALS (7 sets, daily range): BP systolic 104–150; BP diastolic 73–99; PULSE 66–100; RESP 16–20; TEMP 36.2–36.6; O2SAT 91–97
[2023-04-16 00:06] LABS: Anisocytosis 1+ (NORMAL); Hypochromasia 1+ (NORMAL); Ovalocytes 1+ (NORMAL); Platelet Estimate Adequate (Adequate); Polychromasia 1+ (NORMAL); Schistocytes None Seen (NORMAL)
[2023-04-16] MEDS: SODIUM CHLORIDE 0.9% IV 1,000 ML 125 ML IV CONT (04:16)
[2023-04-16] MEDS: oxyCODONE/ACETAMINOPHEN (*CRX) 5-325 MG TABLET 1 TABLET PO ×3 (04:18→17:36)
[2023-04-16] MEDS: FLUTICASONE/UMECLIDIN/VILANTER 100-62.5-25 MCG ELLIPTA 1 PUFF INHALATION (08:06)
[2023-04-16] MEDS: PREGABALIN (*CRX) 50 MG CAPSULE 100 MG PO ×2 (08:37→17:36)
[2023-04-16] MEDS: guaiFENesin 12 HR 600 MG TABCR PO ×2 (08:37→20:14)
[2023-04-16] MEDS: MEMANTINE 5 MG TABLET PO ×2 (08:37→20:14)
[2023-04-16] MEDS: ATORVASTATIN 40 MG TABLET 80 MG PO (08:37)
[2023-04-16] MEDS: CLOPIDOGREL BISULFATE 75 MG TABLET PO (08:37)
[2023-04-16] MEDS: CITALOPRAM HYDROBROMIDE 20 MG TABLET PO (08:37)
[2023-04-16] MEDS: PANTOPRAZOLE 40 MG TABLET PO (08:37)
[2023-04-16] MEDS: FERROUS SULFATE 325 MG TABLET DR PO (08:37)
[2023-04-16] MEDS: CHOLECALCIFEROL 1,000 UNITS TABLET 1000 UNITS PO (08:37)
[2023-04-16] MEDS: ENOXAPARIN 40 MG/0.4 ML SYRINGE SUB-Q (08:38)
[2023-04-16] MEDS: FUROSEMIDE 20 MG TABLET PO (08:38)
--- NOTE | 2023-04-16 11:10 | PM.IMPN ---
Progress Note: A&P Assessment and Plan (1) Recurrent UTI: Code(s): N39.0 - Urinary tract infection, site not specified Status: Acute (2) Weakness: Code(s): R53.1 - Weakness Status: Acute (3) Debilitated: Code(s): R53.81 - Other malaise Status: Acute (4) Gait abnormality: Code(s): R26.9 - Unspecified abnormalities of gait and mobility Status: Acute (5) Choking episode: Code(s): R09.89 - Other specified symptoms and signs involving the circulatory and respiratory systems Status: Acute Plan Plan Choking episode; witnessed by RN -consult EXECUTIVE VICE PRESIDENT OF SALES eval and treat -change diet to soft easy to chew - initiate aspiration precautions UTI:? History of recurrent UTIs, long discussion with pt who admits [facility] is often difficult for her due to weakness and limited mobility -continue to monitor for urine culture results -blood cultures preliminary shows no growth -continue ceftriaxone 1 g IV Q 24 hours at this time -would like to consider pt with home urinary wick system she could use, Weakness/debilitated:??Patient was at home had episode of sliding out of chair denies any LOC or head injury --continue fall precautions -up with assistance only - continue PT/OT eval and treat -pt reports she would like in-pt rehab for her increased weakness Anemia:?hgb 10.3 -continue to monitor daily Hyperlipidemia:?continue home medication -continue atorvastatin 80mg P.O Chronic obstructive pulmonary disease:? Ongoing chronic cough nonproductive -continue monitor oxygen therapy titration, maintain SpO2 above 92% -continue Robitussin some p.r.n. for cough -continue azithromycin 500 mg IV x1 more doses -continue fluticasone(Trelegy) 1 puff daily ? GERD: -continue pantoprazole 40 mg p.o. every day continue home medications: Amitriptyline HcL at HS Clopidogrel 75 mg P.O Citalopram Melatonin Memantine DVT prophylaxis:? Enoxaparin 40 mg subcu daily Diet:? soft easy to chew diet until cleared by EXECUTIVE VICE PRESIDENT OF SALES Anticipated hospital stay:? GREATER THAN 2 DA Subjective Date/time seen: 04/16/23 11:10 Interval history: Progress Note: A&P Assessment and Plan (1) UTI (urinary tract infection): ?Qualifiers: ?Hematuria presence:?with hematuria??Urinary tract infection type:?acute cystitis? Qualified Code(s):?N30.01 - Acute cystitis with hematuria ?Code(s): N39.0 - Urinary tract infection, site not specified ?Status:?Acute (2) Weakness: ?Code(s): R53.1 - Weakness ?Status:?Acute (3) Debilitated: ?Code(s): R53.81 - Other malaise ?Status:?Acute (4) Cough: ?Code(s): R05.9 - Cough, unspecified ?Status:?Acute (5) Chronic GERD: ?Code(s): K21.9 - Gastro-esophageal reflux disease without esophagitis ?Status:?Chronic (6) COPD (chronic obstructive pulmonary disease): ?Qualifiers: ?COPD type:?unspecified COPD? Qualified Code(s):?J44.9 - Chronic obstructive pulmonary disease, unspecified ?Code(s): J44.9 - Chronic obstructive pulmonary disease, unspecified ?Status:?Chronic Plan UTI:? History of recurrent UTIs, long discussion with pt who admits [employer] is often difficult for her due to weakness and limited mobility -continue to monitor for urine culture results -blood cultures preliminary shows no growth -continue ceftriaxone 1 g IV Q 24 hours at this time -would like to consider pt with home urinary wick system she could use, Weakness/debilitated:??Patient was at home had episode of sliding out of chair denies any LOC or head injury --continue fall precautions -up with assistance only - continue PT/OT eval and treat -pt reports she would like in-pt rehab for her increased weakness Anemia:?hgb 10.3 -continue to monitor daily Hyperlipidemia:?continue home medication -continue atorvastatin 80mg P.O Chronic obstructive pulmonary disease:? Ongoing chronic cough nonproductive -continue monitor
[2023-04-16] MEDS: guaiFENesin/DEXTROMETHORPHAN 10 ML UDC PO (12:34)
--- NOTE | 2023-04-16 13:01 | PCSTNOTE ---
Please refer to the Bedside Swallow Evaluation in the EMR. Please note, silent aspiration cannot be ruled out at bedside.
[2023-04-16] MEDS: AMITRIPTYLINE HCL 25 MG TABLET PO (20:14)
[2023-04-16] MEDS: MELATONIN 3 MG TABLET PO (20:14)
[2023-04-16] MEDS: PRAMIPEXOLE 0.5 MG TABLET PO (20:14)
[2023-04-16] MEDS: AZITHROMYCIN 500 MG/NS 250 ML 500 MG/250 ML BAG 250 MG IVPB (22:07)
[2023-04-16 22:56] LABS: Basophils Percent Auto 0.5 % (0.2-1.2); Eosinophils Absolute Auto 0.3 K/mm3 (0-0.3); Eosinophils Percent Auto 4.2 % (0-4.4); Hematocrit 35.9 % (37.0-47.0); Hemoglobin 10.3 g/dL (12.0-15.0); Immature Granulocyte Absolute 0.09 K/mm3 (0.00-0.031); Immature Granulocyte Percent A 1.2 % (0-0.5); Lymphocytes Absolute Auto 1.75 K/mm3 (0.9-3.2); Lymphocytes Percent Auto 22.5 % (18.3-44.2); Mean Corpuscular HGB Conc 28.7 g/dl (32-36); Mean Corpuscular Hemoglobin 26.6 pg (26-34); Mean Corpuscular Volume 92.8 fl (80-100); Mean Platelet Volume 9.5 fl (7.4-10.4); Monocytes Absolute Auto 0.6 K/mm3 (0.1-0.6); Monocytes Percent Auto 8.2 % (2.6-8.5); Neutrophils Absolute Auto 4.9 K/mm3 (1.3-6.7); Neutrophils Percent Auto 63.4 % (45.5-73.1); Platelet Count Result 217 k/mm3 (150-375); Red Blood Count 3.87 M/mm3 (4.2-5.4); Red Cell Distribution Width 15.9 % (11.5-14.5); White Blood Count 7.8 K/mm3 (4.5-10.0)
[2023-04-16 23:31] LABS: Blood Urea Nitrogen 10 mg/dL (7-17); Calcium 8.2 mg/dL (8.4-10.2); Carbon Dioxide > 40 mmol/L (22-30); Chloride 96 mmol/L (98-107); Estimated Glomerular Filt Rate > 60; Glucose 107 mg/dL (65-110); Potassium 3.4 mmol/L (3.4-5.0); Sodium 142 mmol/L (137-145)
[2023-04-16 23:48] LABS: Platelet Estimate Adequate (Adequate)
[2023-04-16 23:49] LABS: Anisocytosis 1+ (NORMAL); Hypochromasia 1+ (NORMAL); Polychromasia 1+ (NORMAL); Schistocytes None Seen (NORMAL)
[2023-04-17] VITALS (9 sets, daily range): BP systolic 109–151; BP diastolic 63–88; PULSE 71–88; RESP 12–18; TEMP 36.3–36.7; O2SAT 93–97
[2023-04-17] MEDS: FLUTICASONE/UMECLIDIN/VILANTER 100-62.5-25 MCG ELLIPTA 1 PUFF INHALATION (07:22)
[2023-04-17] MEDS: ALBUTEROL SULFATE NEB 2.5 MG/3 ML INH INHALATION (07:23)
[2023-04-17 08:09] LABS: Basophils Percent Auto 0.5 % (0.2-1.2); Eosinophils Absolute Auto 0.2 K/mm3 (0-0.3); Eosinophils Percent Auto 3.1 % (0-4.4); Hematocrit 37.4 % (37.0-47.0); Hemoglobin 11.1 g/dL (12.0-15.0); Immature Granulocyte Absolute 0.11 K/mm3 (0.00-0.031); Immature Granulocyte Percent A 1.4 % (0-0.5); Lymphocytes Absolute Auto 2.46 K/mm3 (0.9-3.2); Lymphocytes Percent Auto 31.9 % (18.3-44.2); Mean Corpuscular HGB Conc 29.7 g/dl (32-36); Mean Corpuscular Hemoglobin 26.7 pg (26-34); Mean Corpuscular Volume 90.1 fl (80-100); Mean Platelet Volume 9.5 fl (7.4-10.4); Monocytes Absolute Auto 0.6 K/mm3 (0.1-0.6); Monocytes Percent Auto 7.3 % (2.6-8.5); Neutrophils Absolute Auto 4.3 K/mm3 (1.3-6.7); Neutrophils Percent Auto 55.8 % (45.5-73.1); Platelet Count Result 245 k/mm3 (150-375); Red Blood Count 4.15 M/mm3 (4.2-5.4); Red Cell Distribution Width 15.6 % (11.5-14.5); White Blood Count 7.7 K/mm3 (4.5-10.0)
[2023-04-17 08:16] LABS: Alanine Aminotransferase 24 U/L (6-35); Albumin Level 3.6 g/dL (3.5-5.1); Alkaline Phosphatase 109 U/L (38-126); Aspartate Amino Transferase 35 U/L (14-36); Bilirubin,Total 0.7 mg/dL (0.2-1.3); Blood Urea Nitrogen 9 mg/dL (7-17); Calcium 8.9 mg/dL (8.4-10.2); Carbon Dioxide > 40 mmol/L (22-30); Chloride 94 mmol/L (98-107); Estimated Glomerular Filt Rate > 60; Glucose 111 mg/dL (65-110); Potassium 3.3 mmol/L (3.4-5.0); Sodium 141 mmol/L (137-145)
[2023-04-17] MEDS: CITALOPRAM HYDROBROMIDE 20 MG TABLET PO (08:18)
[2023-04-17] MEDS: CHOLECALCIFEROL 1,000 UNITS TABLET 1000 UNITS PO (08:18)
[2023-04-17] MEDS: ENOXAPARIN 40 MG/0.4 ML SYRINGE SUB-Q (08:18)
[2023-04-17] MEDS: CLOPIDOGREL BISULFATE 75 MG TABLET PO (08:18)
[2023-04-17] MEDS: ATORVASTATIN 40 MG TABLET 80 MG PO (08:18)
[2023-04-17] MEDS: PREGABALIN (*CRX) 50 MG CAPSULE 100 MG PO (08:19)
[2023-04-17] MEDS: guaiFENesin 12 HR 600 MG TABCR PO (08:19)
[2023-04-17] MEDS: PANTOPRAZOLE 40 MG TABLET PO (08:19)
[2023-04-17] MEDS: FERROUS SULFATE 325 MG TABLET DR PO (08:19)
[2023-04-17] MEDS: MEMANTINE 5 MG TABLET PO (08:19)
[2023-04-17] MEDS: oxyCODONE/ACETAMINOPHEN (*CRX) 5-325 MG TABLET 1 TABLET PO (08:20)
[2023-04-17] MEDS: FUROSEMIDE 20 MG TABLET PO (08:20)
[2023-04-17 09:28] LABS: Hypochromasia 2+ (NORMAL); Ovalocytes 1+ (NORMAL); Platelet Estimate Adequate (Adequate)
[2023-04-17 09:30] LABS: Schistocytes 1+ (NORMAL)
[2023-04-17 09:31] LABS: Tear Drop Cells 1+ (NORMAL)
[2023-04-17] MEDS: cefTRIAXone 2 GM/NS 100 ML 2 GM/100 ML BAG IVPB (10:13)
--- NOTE | 2023-04-17 11:06 | P.PNINF_ITS ---
Pharmacy ID Consult - Stewardship Interventions Type of Interventions: Discharge Recommendation Pharmacy ID Note: Subjective Pharmacy was consulted by Jorge Krishnamurthy regarding infectious diseases for Jazmin Bullard. Jazmin Bullard is a 88 year old F with concerns regarding dis charge antibiotic recommendations. Background The patient is currently receiving Ceftriaxone IV 2g daily (day 1) and has finished a 3 day course of azithromycin. The patient's PMH includes concern for UTI and per the provider is to transition to acute rehab soon. Cultures are showing E coli and one another GNR that is pending speciation and both are pending sensitivities. Microbiology 04/14/23 11:39 Blood Blood Culture - Preliminary 04/14/23 11:01 Unspecified Urine Culture - Preliminary Escherichia Coli Gram negative bacilli isolated 04/14/23 11:01 Blood Blood Culture - Preliminary Assessment/Recommendation/Discussion Spoke briefly with consulting provider, and, as the patient is still pending sensitivities for their pathogens, continuing current ceftriaxone therapy offers an appropriate empiric therapy option especially given September and February 2023 urine cultures with Klebsiella pneumoniae and e coli respectively. Could transition to PO if appropriate option comes to light with sensitivities. Will continue to follow for sensitivities while the patient is still at [facility]. Please reach out if any additional information comes to light. Thank you for the interesting consult. Saul Fraire, PharmD Infectious Disease/Antimicrobial Stewardship Pharmacist 04/17/23; 1106 WBC 7.7 K/mm3 (4.5-10.0) 04/17/23 07:58 Creatinine 0.70 mg/dL (0.7-1.0) 04/17/23 07:58 Estim Creat Clear Calc Not Reportable 04/17/23 07:58
[2023-04-17] MEDS: IPRATROPIUM BR 0.02% INH SOLN 0.5 MG/2.5 ML VIAL INHALATION (13:08)
--- NOTE | 2023-04-17 13:21 | PM.DS ---
DS: Admitting Diagnosis Discharge Date 04/17/2023 Admitting Diagnosis Recurrent UTI DS: Discharge Diagnosis Discharge Diagnosis (1) Choking episode: Code(s): R09.89 - Other specified symptoms and signs involving the circulatory and respiratory systems Status: Acute Assessment and Plan: CXR revealed IMPRESSION: 1. Significant decrease in prior patchy airspace opacities in the left lower lobe consistent with improving aspiration or pneumonia. 2. Persistent linear and bandlike opacities in bilateral mid and lower lung zones consistent with chronic discoid atelectasis/scarring. (2) Recurrent UTI: Code(s): N39.0 - Urinary tract infection, site not specified Status: Acute (3) Gait abnormality: Code(s): R26.9 - Unspecified abnormalities of gait and mobility Status: Acute Assessment and Plan: continue fall risk precautions (4) Debilitated: Code(s): R53.81 - Other malaise Status: Acute (5) Cough: Code(s): R05.9 - Cough, unspecified Status: Acute Assessment and Plan: -continue home medication (6) Weakness: Code(s): R53.1 - Weakness Status: Acute Assessment and Plan: pt will be admitted to [facility] Plan Admit patient to medical unit under full inpatient status Urinalysis was done which shows finding consistent with UTI Follow-up on urine and blood cultures Patient has the episodes of recurrent UTIs Patient started on IV Rocephin in the ER which we will continue on the floor Reviewed sensitivities from prior urine cultures which shows good sensitivities to Rocephin Patient started on IV hydration in the ER with normal saline at 125 cc/hour, which I will switch to 75 cc/hour patient has cough for the last few days with green is sputum likely consistent with acute bronchitis Chest x-ray shows?Increased hazy airspace disease right perihilar region. Correlate for vascular congestion/pulmonary edema versus possibly pneumonia. Given her symptoms, I would add IV azithromycin to cover for UTI, bronchitis and possible pneumonia Robitussin cough syrup ordered p.r.n. for cough Strict input and output monitoring PT/OT evaluation ordered DC planning once patient is stable and back to baseline discussed with Pharmacy for recs on continue abx while pt is in [facility], since pt has + preliminary blood cultures and urine culture: here is consult below ?Stewardship Interventions Type of Interventions:?Discharge Recommendation Pharmacy ID Note: Subjective Pharmacy was consulted by Jorge Krishnamurthy regarding infectious diseases for Jazmin Bullard. ? Jazmin Bullard is a 88 year old F with concerns regarding discharge antibiotic recommendations. Background The patient is currently receiving Ceftriaxone IV 2g daily (day 1) and has finished a 3 day course of azithromycin. The patient's PMH includes concern for UTI and per the provider is to transition to acute rehab soon. Cultures are showing E coli and one another GNR that is pending speciation and both are pending sensitivities. Microbiology 04/14/23 11:39 ? Blood ? Blood Culture - Preliminary 04/14/23 11:01 ? Unspecified ? Urine Culture - Preliminary ? Escherichia Coli ? Gram negative bacilli isolated 04/14/23 11:01 ? Blood ? Blood Culture - Preliminary will discharge with x3 IV ceftriaxone q. 24 hours start on 04/18/2023 pt will have received total of 5 doses when therapy has been completed. DS: Summary Hospital Course Reason for hospitalization: Patient brought to the ER for evaluation after sliding out of her chair and falling at [facility] Course: Chief Complaint: Patient brought to the ER for evaluation after sliding out of her chair and falling at home Narrative: She is a pleasant lady with recurrent UTIs who was at home sitting in the chair when she slid out, fell and landed on her buttocks.? Family got concerned and brought her to the ER
--- NOTE | 2023-04-21 08:23 | PC.NURSE ---
Blood cultures are negative.
== END 2023-04-17 15:01 | DRG 689 ==
LOC: ANHED 14:22 → ANH3MEDSUR 15:51 → ANH2MED 16:35
PROVIDERS: Family Medicine; Admitting Provider Internal Medicine; Emergency Provider Nurse Practitioner Family; PCP Physician Assistant; Visit Provider Nurse Practitioner
DX: N30.01 Acute cystitis with hematuria (principal); J18.9 Pneumonia, unspecified organism; J44.0 Chronic obstructive pulmonary disease with (acute) lower respiratory infection; T17.908A Unspecified foreign body in respiratory tract, part unspecified causing other injury, initial encounter; B96.20 Unspecified Escherichia coli [E. coli] as the cause of diseases classified elsewhere; D64.9 Anemia, unspecified; E78.5 Hyperlipidemia, unspecified; F41.8 Other specified anxiety disorders; G89.29 Other chronic pain; G25.81 Restless legs syndrome; J20.9 Acute bronchitis, unspecified; K21.9 Gastro-esophageal reflux disease without esophagitis; R26.9 Unspecified abnormalities of gait and mobility; Z28.21 Immunization not carried out because of patient refusal; Z87.891 Personal history of nicotine dependence; Z79.02 Long term (current) use of antithrombotics/antiplatelets; Z90.49 Acquired absence of other specified parts of digestive tract; Z99.81 Dependence on supplemental oxygen
CPT/HCPCS: 36415; 71046; 80048; 80053; 81001; 83605; 83735; 84100; 85025; 85610; 85730; 86140; 87040; 87077; 87086; 87186; 92610; 93005; 94640; 97110; 97161; 97165; 97530; 97535; 99285; A9270; J0456; J0696; J1650; J7030

== ENCOUNTER 2023-07-14 08:54 | Outpatient (CLI) | payer MEDICARE, SELFPAY ==
[2023-07-14 10:12] LABS: Appearance Urine Clear (Clear); Bacteria Urine None Seen /hpf; Bilirubin Urine Negative (Negative); Blood Urine Negative (Negative); Color Urine Yellow (Yellow); Glucose Urine UA Negative (Negative); Ketones Urine Negative (Negative); Leukocyte Esterase Ur 1+ LEU/UL (Negative); Nitrate Urine Negative (Negative); Non Pathogenic Casts 0-2; Protein Urine Negative (Negative); RBC Urine 0-2 /hpf (0-2); Specific Grav Ur 1.009 (1.001-1.035); Squamous Epithelial Cell Urine Few /hpf (Few)
[2023-07-14 10:14] LABS: Add Urine Microscopic? YES
== END 2023-07-14 08:55 | disposition home or self-care (01) ==
PROVIDERS: PCP Physician Assistant; Visit Provider Physician Assistant
DX: R39.9 Unspecified symptoms and signs involving the genitourinary system (principal)
CPT/HCPCS: 81001; 87086; 87088

== ENCOUNTER 2023-07-15 14:31 | Emergency (ER) | payer MEDICARE, SELFPAY ==
[2023-07-15] VITALS (9 sets, daily range): BP systolic 96–127; BP diastolic 63–83; PULSE 74–114; RESP 10–18; TEMP 36.9; O2SAT 92–100
--- NOTE | ~2023-07-15 | CT_ITS ---
EXAMINATION: CT brain wo con DATE: 07/15/2023 15:07 INDICATION: Head injury. TECHNIQUE: Computed tomography (CT) of the head was performed without intravenous contrast. The mA wa s adjusted according to patient size. Iterative reconstruction technique was employed. The dose-lengt h product was 681.00 mGy-cm. COMPARISON: Head CT 02/19/2023 FINDINGS: There are scattered areas of low attenuation in the cerebral white matter, which is within normal limits for the patient's age. There is no intracranial hemorrhage, acute infarction, or abnor mal intracranial mass lesion. The ventricles are normal in size. There are likely changes of ocular l ens replacement surgeries. The paranasal sinuses are clear. The mastoid air cells are normal. There i s right posterior scalp soft tissue swelling. IMPRESSION: 1. Normal aging brain. Reviewed, dictated and finalized at location A. IMPRESSION: 1. Normal aging brain.
--- NOTE | 2023-07-15 15:13 | ED.FALL ---
HPI - Fall General Chief Complaint: Fall Stated Complaint: fall Time Seen by Provider: 07/15/23 14:34 History of Present Illness HPI Narrative: Patient is an 88-year-old female who presents ER after falling and striking her head. She did not lose consciousness. She is bending over to talk some I when she lost her balance and struck her head. She is on Plavix. She is sent for a CT scan by the facility. She reports mild headache and swelling to the back of her head but is improving with icing the area. 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 Related Data Home Medications Medication Instructions Recorded Confirmed furosemide 20 mg tablet 20 mg PO DAILY 10/23/20 04/17/23 atorvastatin 80 mg tablet 80 mg PO DAILY 03/04/22 04/17/23 clopidogrel 75 mg tablet 75 mg PO DAILY 03/04/22 04/17/23 memantine 5 mg tablet 5 mg PO BID 03/04/22 04/17/23 pramipexole 0.5 mg tablet (Mirapex) 0.5 mg PO HS 03/07/22 04/17/23 ferrous sulfate 325 mg (65 mg 325 mg PO DAILY 10/01/22 04/17/23 iron) tablet pregabalin 100 mg capsule 100 mg PO BID 10/01/22 04/17/23 albuterol sulfate 2.5 mg/3 mL 2.5 mg inhalation Q8H PRN wheezing 10/13/22 04/17/23 (0.083 %) solution for nebulization amitriptyline 25 mg tablet 25 mg PO QHS 10/13/22 04/17/23 cholecalciferol (vitamin D3) 25 25 mcg PO DAILY 10/13/22 04/17/23 mcg (1,000 unit) capsule (Vitamin D3) nystatin 100,000 unit/gram topical 1 applic topical DAILY 11/17/22 04/17/23 powder citalopram 20 mg tablet 20 mg PO DAILY 02/20/23 04/17/23 Allergies Allergy/AdvReac Type Severity Reaction Status Date / Time chlorpromazine Allergy Unknown Unknown Verified 04/17/23 16:20 [From Thorazine] diphenhydramine Allergy Unknown Unknown Verified 04/17/23 16:20 [From Benadryl] meperidine [From Demerol] Allergy Unknown Unknown Verified 04/17/23 16:20 rofecoxib [From Vioxx] Allergy Unknown Unknown Verified 04/17/23 16:20 zolpidem [From Ambien] Allergy Unknown Unknown Verified 04/17/23 16:20 Review of Systems Constitutional: Constitutional: Reports no additional constitutional complaints Eyes: Eyes: Reports no additional eye complaints ENT: Reports system reviewed and no additional complaints, except as documented Neurologic: Denies syncope, Reports headache(s), Denies focal weakness and Denies numbness PMFSH Past Medical History Medical History Acute exacerbation of chronic obstructive airways disease Chronic GERD COPD (chronic obstructive pulmonary disease) Depression with anxiety Hiatal hernia Recurrent UTI Surgical History Surgical History H/O bladder repair surgery H/O breast surgery H/O colonoscopy H/O esophagogastroduodenoscopy H/O foot surgery H/O hernia repair H/O Spinal surgery H/O wrist surgery H/O: hysterectomy Hx of cataract extraction Hx of cholecystectomy S/P cervical spinal fusion S/P tonsillectomy Family History Family History Father Bladder cancer Mother Hypertension Depression Sibling Asthma Hypertension Depression Grandparent Hypertension Heart disease Cerebrovascular accident Grandparent Alcoholism Lung cancer Social History Social History Social History: The patient is and has 3 children. 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 She tells me she was a former smoker. She chronically wears oxygen at home. She does not have a durable power airplane engineer for healthcare. She has an alcoholic beverage approximately 4 times per week. Code status full code Smoking packs per day: 1 Smoking cigarettes per day: 20.0 Years smoked: 45 Smoking pack-years: 45.00 Smoking status: Former smoker Second hand tobacco smoke exposure: No Alcohol intake: never Drinks per week: 1 Substance use: never [place]
== END 2023-07-15 16:34 ==
PROVIDERS: Emergency Provider Emergency Medicine; PCP Physician Assistant
DX: S00.03XA Contusion of scalp, initial encounter (principal); J44.9 Chronic obstructive pulmonary disease, unspecified; K21.9 Gastro-esophageal reflux disease without esophagitis; F41.8 Other specified anxiety disorders; Z99.81 Dependence on supplemental oxygen; Z98.1 Arthrodesis status; Z87.440 Personal history of urinary (tract) infections; Z87.891 Personal history of nicotine dependence; Z98.49 Cataract extraction status, unspecified eye; Z90.710 Acquired absence of both cervix and uterus; Z90.49 Acquired absence of other specified parts of digestive tract; Z79.02 Long term (current) use of antithrombotics/antiplatelets; W18.39XA Other fall on same level, initial encounter
CPT/HCPCS: 70450; 99284

== ENCOUNTER 2023-08-26 09:44 | Emergency (ER) | payer MEDICARE, SELFPAY ==
--- NOTE | ~2023-08-26 | XR_ITS ---
AP view of the pelvis and AP and lateral views of the bilateral hips Clinical history: Pain COMPARISON: 11/16/2022 Findings: No acute fracture or dislocation is seen. Prior ORIF for the proximal right femur is unchan ged. Osseous alignment is anatomic. Mild degenerative change of both hip joints is present. Soft tiss ues are unremarkable. Impression: No acute abnormality. Stable prior ORIF of the proximal right femur. Mild degenerative change of both hip joints. Reviewed, dictated and finalized at location M. Impression: No acute abnormality. Stable prior ORIF of the proximal right femur. Mild degenerative change of both hip joints.
--- NOTE | ~2023-08-26 | XR_ITS ---
EXAMINATION: XR humerus RT DATE: 08/26/2023 11:07 INDICATION: Right humeral pain TECHNIQUE: AP and lateral views of the right humerus were obtained. COMPARISON: None. FINDINGS: Alignment is normal. No fracture. 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 Additional moderate osteoarthritis at the right acromioclavicular joint. Right glenohumeral joint spa ce is not adequately profiled to assess for joint space narrowing. Soft tissues are unremarkable. IMPRESSION: 1. Moderate right acromioclavicular and elbow osteoarthritis. No acute osseous abnormality. Reviewed, dictated and finalized at location A.
--- NOTE | ~2023-08-26 | US_ITS ---
EXAMINATION: US venous doppler [facility] DATE: 08/26/2023 11:35 INDICATION: Left lower limb pain, swelling and erythema. TECHNIQUE: Grayscale ultrasound images without and with compression and Doppler ultrasound images of the left lower extremity veins were obtained. COMPARISON: None. FINDINGS: The visualized portions of left common femoral vein, profunda (deep) femoral vein, femoral vein, popl iteal vein, peroneal veins, posterior tibial veins, gastrocnemius vein and greater saphenous vein out flow are patent. There is a 7.4 x 4.1 x 5.8 cm complex fluid collection lateral to the left hip with anechoic and hypoechoic regions with multiple thin internal septations. No internal vascular flow wit hin the lesion on color Doppler or surrounding hyperemia to suggest abscess in this most likely repre sents a hematoma. IMPRESSION: 1. No deep venous thrombosis in the left lower limb. 2. 7.4 x 4.1 x 5.8 cm complex fluid collection at the lateral left hip most likely a posttraumatic he matoma. Reviewed, dictated and finalized at location A. IMPRESSION: 1. No deep venous thrombosis in the left lower limb. 2. 7.4 x 4.1 x 5.8 cm complex fluid collection at the lateral left hip most lik earl a posttraumatic hematoma.
[2023-08-26 09:43] VITALS: BP 104/67; RESP 18; TEMP 36.4
[2023-08-26 10:16] VITALS: BP 104/64; PULSE 57; RESP 18; O2SAT 95
[2023-08-26 10:20] LABS: Basophils Percent Auto 0.3 % (0.2-1.2); Eosinophils Absolute Auto 0.2 K/mm3 (0-0.3); Eosinophils Percent Auto 2.6 % (0-4.4); Hematocrit 37.5 % (37.0-47.0); Hemoglobin 11.1 g/dL (12.0-15.0); Immature Granulocyte Absolute 0.03 K/mm3 (0.00-0.031); Immature Granulocyte Percent A 0.5 % (0-0.5); Lymphocytes Percent Auto 18.2 % (18.3-44.2); Mean Corpuscular HGB Conc 29.6 g/dl (32-36); Mean Corpuscular Hemoglobin 28.6 pg (26-34); Mean Corpuscular Volume 96.6 fl (80-100); Mean Platelet Volume 9.6 fl (7.4-10.4); Monocytes Absolute Auto 0.5 K/mm3 (0.1-0.6); Monocytes Percent Auto 7.1 % (2.6-8.5); Neutrophils Absolute Auto 4.7 K/mm3 (1.3-6.7); Neutrophils Percent Auto 71.3 % (45.5-73.1); Platelet Count Result 197 k/mm3 (150-375); Red Blood Count 3.88 M/mm3 (4.2-5.4); White Blood Count 6.6 K/mm3 (4.5-10.0)
[2023-08-26 10:31] VITALS: BP 110/94; PULSE 55; RESP 18; O2SAT 94
[2023-08-26 10:39] LABS: Alanine Aminotransferase 20 U/L (6-35); Albumin Level 3.7 g/dL (3.5-5.1); Alkaline Phosphatase 92 U/L (38-126); Aspartate Amino Transferase 33 U/L (14-36); Bilirubin,Total 1.1 mg/dL (0.2-1.3); Blood Urea Nitrogen 18 mg/dL (7-17); Calcium 8.6 mg/dL (8.4-10.2); Carbon Dioxide > 40 mmol/L (22-30); Chloride 96 mmol/L (98-107); Estimated CRCL calculation 34 ml/min; Estimated Glomerular Filt Rate > 60; Glucose 126 mg/dL (65-110); Potassium 3.3 mmol/L (3.4-5.0); Sodium 141 mmol/L (137-145)
[2023-08-26 10:42] LABS: Platelet Estimate Adequate (Adequate)
[2023-08-26 10:43] LABS: Anisocytosis 1+; Hypochromasia 1+; Schistocytes None Seen
--- NOTE | 2023-08-26 10:48 | ED.EXTPRO ---
HPI - Extremity Problem General Chief complaint: Extremity Problem,Nontraumatic Stated complaint: infected LLE Time Seen by Provider: 08/26/23 10:21 History of Present Illness HPI Narrative: 88-year-old female presents to the emergency department for evaluation for left leg swelling. Patient reports she had a fall a few weeks ago and had a large hematoma on her left leg. Patient states that she did not want to be evaluated at the time because she went to go see her grandchildren in [place]. Patient did go on vacation and returned and now she wants to be evaluated for left leg swelling. Related Data Home Medications Medication Instructions Recorded Confirmed furosemide 20 mg tablet 20 mg PO DAILY 10/23/20 04/17/23 atorvastatin 80 mg tablet 80 mg PO DAILY 03/04/22 04/17/23 clopidogrel 75 mg tablet 75 mg PO DAILY 03/04/22 04/17/23 memantine 5 mg tablet 5 mg PO BID 03/04/22 04/17/23 pramipexole 0.5 mg tablet (Mirapex) 0.5 mg PO HS 03/07/22 04/17/23 ferrous sulfate 325 mg (65 mg 325 mg PO DAILY 10/01/22 04/17/23 iron) tablet pregabalin 100 mg capsule 100 mg PO BID 10/01/22 04/17/23 albuterol sulfate 2.5 mg/3 mL 2.5 mg inhalation Q8H PRN wheezing 10/13/22 04/17/23 (0.083 %) solution for nebulization amitriptyline 25 mg tablet 25 mg PO QHS 10/13/22 04/17/23 cholecalciferol (vitamin D3) 25 25 mcg PO DAILY 10/13/22 04/17/23 mcg (1,000 unit) capsule (Vitamin D3) nystatin 100,000 unit/gram topical 1 applic topical DAILY 11/17/22 04/17/23 powder citalopram 20 mg tablet 20 mg PO DAILY 02/20/23 04/17/23 Allergies Allergy/AdvReac Type Severity Reaction Status Date / Time chlorpromazine Allergy Unknown Unknown Verified 04/17/23 16:20 [From Thorazine] diphenhydramine Allergy Unknown Unknown Verified 04/17/23 16:20 [From Benadryl] meperidine [From Demerol] Allergy Unknown Unknown Verified 04/17/23 16:20 rofecoxib [From Vioxx] Allergy Unknown Unknown Verified 04/17/23 16:20 zolpidem [From Ambien] Allergy Unknown Unknown Verified 04/17/23 16:20 Review of Systems Review of Systems: All systems reviewed & are unremarkable except as noted in HPI and below PMFSH Past Medical History Medical History Acute exacerbation of chronic obstructive airways disease Chronic GERD COPD (chronic obstructive pulmonary disease) Depression with anxiety Hiatal hernia Recurrent UTI Surgical History Surgical History H/O bladder repair surgery H/O breast surgery H/O colonoscopy H/O esophagogastroduodenoscopy H/O foot surgery H/O hernia repair H/O Spinal surgery H/O wrist surgery H/O: hysterectomy Hx of cataract extraction Hx of cholecystectomy S/P cervical spinal fusion S/P tonsillectomy Family History Family History Father Bladder cancer Mother Hypertension Depression Sibling Asthma Hypertension Depression Grandparent Hypertension Heart disease Cerebrovascular accident Grandparent Alcoholism Lung cancer Social History Social History Social History: The patient is and has 3 children. 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 She tells me she was a former smoker. She chronically wears oxygen at home. She does not have a durable power health care attorney for healthcare. She has an alcoholic beverage approximately 4 times per week. Code status full code Smoking packs per day: 1 Smoking cigarettes per day: 20.0 Years smoked: 45 Smoking pack-years: 45.00 Smoking status: Former smoker Second hand tobacco smoke exposure: No Alcohol intake: never Drinks per week: 1 Substance use: never Substance use type: does not use Do You Feel Safe in your Home?: Yes Lack of Transportation: No Lack of Food: Never True Current Housing: I Have Housing
[2023-08-26 11:49] VITALS: BP 108/69; PULSE 56; RESP 19; O2SAT 99
[2023-08-26 13:38] VITALS: BP 106/70; PULSE 57; RESP 19; O2SAT 98
[2023-08-26 14:20] VITALS: BP 100/58; PULSE 79; RESP 18; O2SAT 97
== END 2023-08-26 14:24 ==
PROVIDERS: Emergency Provider Emergency Medicine; PCP Physician Assistant
DX: S70.12XA Contusion of left thigh, initial encounter (principal); R60.0 Localized edema; W19.XXXA Unspecified fall, initial encounter; J44.9 Chronic obstructive pulmonary disease, unspecified; K21.9 Gastro-esophageal reflux disease without esophagitis; F41.8 Other specified anxiety disorders; Z87.891 Personal history of nicotine dependence
CPT/HCPCS: 36415; 73060; 73521; 80053; 85025; 93971; 99284

== ENCOUNTER 2023-09-01 14:03 | Inpatient (IN) | payer MEDICARE, SELFPAY ==
[2023-09-01] VITALS (8 sets, daily range): BP systolic 108–137; BP diastolic 59–95; PULSE 65–112; RESP 11–20; TEMP 36.1–36.5; O2SAT 97–98; BMI 30.2
--- NOTE | ~2023-09-01 | CT_ITS ---
CT of the Abdomen and Pelvis: Indication: Abdominal pain Technique: 2.5 mm axial scans were obtained through the abdomen and pelvis following intravenous adm inistration of 100 cc of Omnipaque 350. Dose reduction technique was used on this scan by utilizing a utomated exposure control and iterative reconstruction technique. The dose-length product (DLP) was 6 66.60 mGy-cm. COMPARISON: 11/16/2022 Findings: Scans through the lung bases demonstrate bibasilar atelectasis or scarring. Moderate hiata l hernia present. Multiple small hepatic cysts are present. Status post cholecystectomy. Pancreas is relatively diffuse ly atrophic, with mild prominence of the main pancreatic duct and several small cystic mass is presen t, similar to prior exam. The spleen, adrenals and kidneys are within normal limits. There are athero sclerotic calcifications of the aorta. No lymphadenopathy. No bowel obstruction or bowel wall thickening. There is no evidence to suggest acute appendicitis. Images through the pelvis were performed. Urinary bladder unremarkable. No pelvic mass seen. No ascit es. There are stable chronic compression fractures of L1 and L2. Prior vertebroplasty at T12 present. Add itional chronic compression fracture of T11 is also unchanged. Degenerative spondylitic changes in th e spine are stable. Impression: No definite acute abnormality seen. Moderate hiatal hernia. Atrophic pancreas with prominence of the pancreatic duct and several small cystic pancreatic masses. These findings are stable from prior exam. Stable compression fractures in the spine, as detailed above. Reviewed, dictated and finalized at [facility]. Impression: No definite acute abnormality seen. Moderate hiatal hernia. Atrophic pancreas with prominence of the pancreatic duct and several small cyst ic pancreatic masses. These findings are stable from prior exam. Stable compression fractures in the spine, as detailed above.
[2023-09-01] MEDS: ONDANSETRON HCL ODT 4 MG TABLET PO (15:34)
[2023-09-01 15:41] LABS: Basophils Percent Auto 0.2 % (0.2-1.2); Eosinophils Absolute Auto 0.1 K/mm3 (0-0.3); Eosinophils Percent Auto 0.9 % (0-4.4); Hematocrit 41.6 % (37.0-47.0); Hemoglobin 12.9 g/dL (12.0-15.0); Immature Granulocyte Absolute 0.04 K/mm3 (0.00-0.031); Immature Granulocyte Percent A 0.4 % (0-0.5); Lymphocytes Absolute Auto 1.85 K/mm3 (0.9-3.2); Lymphocytes Percent Auto 18.4 % (18.3-44.2); Mean Corpuscular Hemoglobin 28.4 pg (26-34); Mean Corpuscular Volume 91.4 fl (80-100); Mean Platelet Volume 9.6 fl (7.4-10.4); Monocytes Absolute Auto 0.8 K/mm3 (0.1-0.6); Neutrophils Absolute Auto 7.3 K/mm3 (1.3-6.7); Neutrophils Percent Auto 72.1 % (45.5-73.1); Platelet Count Result 247 k/mm3 (150-375); Red Blood Count 4.55 M/mm3 (4.2-5.4); Red Cell Distribution Width 15.4 % (11.5-14.5); White Blood Count 10.1 K/mm3 (4.5-10.0)
[2023-09-01 16:11] LABS: Alanine Aminotransferase 21 U/L (6-35); Albumin Level 4.2 g/dL (3.5-5.1); Alkaline Phosphatase 103 U/L (38-126); Aspartate Amino Transferase 39 U/L (14-36); Bilirubin,Total 1.3 mg/dL (0.2-1.3); Blood Urea Nitrogen 15 mg/dL (7-17); Calcium 8.8 mg/dL (8.4-10.2); Carbon Dioxide > 40 mmol/L (22-30); Chloride 90 mmol/L (98-107); Estimated Glomerular Filt Rate > 60; Glucose 90 mg/dL (65-110); Potassium 2.8 mmol/L (3.4-5.0); Sodium 135 mmol/L (137-145)
--- NOTE | 2023-09-01 16:18 | ECG_ITS ---
SEE SCANNED COPY FOR CONFIRMED REPORT MTDD
[2023-09-01] MEDS: ACETAMINOPHEN 500 MG TABLET 1000 MG PO (16:47)
[2023-09-01] MEDS: POTASSIUM CHLORIDE INJ 40 MEQ in SODIUM CHLORIDE 0.9% IV 500 ML 130 MEQ IVPB (16:47)
[2023-09-01] MEDS: LACTATED RINGERS 1,000 ML 999 ML IV CONT (16:48)
[2023-09-01 16:51] LABS: Magnesium 1.8 mg/dL (1.6-2.3)
--- NOTE | 2023-09-01 17:03 | ED.WEAKNESS ---
HPI - Weakness General Chief complaint: Weakness Stated complaint: weakness Time Seen by Provider: 09/01/23 15:39 History of Present Illness HPI Narrative: Patient states that for the last few days she has been not feeling well, reports fevers and chills, nausea, diarrhea. Denies any abdominal pain. Related Data Home Medications Medication Instructions Recorded Confirmed furosemide 20 mg tablet 20 mg PO DAILY 10/23/20 04/17/23 atorvastatin 80 mg tablet 80 mg PO DAILY 03/04/22 04/17/23 clopidogrel 75 mg tablet 75 mg PO DAILY 03/04/22 04/17/23 memantine 5 mg tablet 5 mg PO BID 03/04/22 04/17/23 pramipexole 0.5 mg tablet (Mirapex) 0.5 mg PO HS 03/07/22 04/17/23 ferrous sulfate 325 mg (65 mg 325 mg PO DAILY 10/01/22 04/17/23 iron) tablet pregabalin 100 mg capsule 100 mg PO BID 10/01/22 04/17/23 albuterol sulfate 2.5 mg/3 mL 2.5 mg inhalation Q8H PRN wheezing 10/13/22 04/17/23 (0.083 %) solution for nebulization amitriptyline 25 mg tablet 25 mg PO QHS 10/13/22 04/17/23 cholecalciferol (vitamin D3) 25 25 mcg PO DAILY 10/13/22 04/17/23 mcg (1,000 unit) capsule (Vitamin D3) nystatin 100,000 unit/gram topical 1 applic topical DAILY 11/17/22 04/17/23 powder citalopram 20 mg tablet 20 mg PO DAILY 02/20/23 04/17/23 Allergies Allergy/AdvReac Type Severity Reaction Status Date / Time chlorpromazine Allergy Unknown Unknown Verified 04/17/23 16:20 [From Thorazine] diphenhydramine Allergy Unknown Unknown Verified 04/17/23 16:20 [From Benadryl] meperidine [From Demerol] Allergy Unknown Unknown Verified 04/17/23 16:20 rofecoxib [From Vioxx] Allergy Unknown Unknown Verified 04/17/23 16:20 zolpidem [From Ambien] Allergy Unknown Unknown Verified 04/17/23 16:20 Review of Systems Review of Systems: All systems reviewed & are unremarkable except as noted in HPI and below PMFSH Past Medical History Medical History Acute exacerbation of chronic obstructive airways disease Chronic GERD COPD (chronic obstructive pulmonary disease) Depression with anxiety Hiatal hernia Recurrent UTI Surgical History Surgical History H/O bladder repair surgery H/O breast surgery H/O colonoscopy H/O esophagogastroduodenoscopy H/O foot surgery H/O hernia repair H/O Spinal surgery H/O wrist surgery H/O: hysterectomy Hx of cataract extraction Hx of cholecystectomy S/P cervical spinal fusion S/P tonsillectomy Family History Family History Father Bladder cancer Mother Hypertension Depression Sibling Asthma Hypertension Depression Grandparent Hypertension Heart disease Cerebrovascular accident Grandparent Alcoholism Lung cancer Social History Social History Social History: The patient is and has 3 children. 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 She tells me she was a former smoker. She chronically wears oxygen at home. She does not have a durable power insurance defense attorney for healthcare. She has an alcoholic beverage approximately 4 times per week. Code status full code Smoking packs per day: 1 Smoking cigarettes per day: 20.0 Years smoked: 45 Smoking pack-years: 45.00 Smoking status: Former smoker Second hand tobacco smoke exposure: No Alcohol intake: never Drinks per week: 1 Substance use: never Substance use type: does not use Do You Feel Safe in your Home?: Yes Lack of Transportation: No Lack of Food: Never True Current Housing: I Have Housing Concerned About Future Housing: No Difficulty Paying Gas/Electric Bills: No Difficulty Paying for Meds: No Currently Unemployed: No Education: Associate Degree Difficulty w/ Childcare or Family Care: No Spiritual care concerns: No Exam Narrative: EXAMINATION OF ORGA
[2023-09-01] MEDS: POTASSIUM CHLORIDE 20 MEQ ER TABLET 40 MEQ PO (17:06)
--- NOTE | 2023-09-01 17:30 | PM.IMHP ---
H&P: HPI History of Present Illness Date/Time: 09/01/23 17:30 Chief Complaint: Weakness. Narrative: This is a pleasant 88-year-old female with history of hypertension, hyperlipidemia, diastolic dysfunction, deep venous thrombosis, chronic obstructive pulmonary disease, obstructive sleep apnea, gastroesophageal reflux disease, iron deficiency anemia, anxiety, and tremors who presented to the emergency department for evaluation of weakness. The patient provides the following history. She has not been feeling well for several days with symptoms to include hot flashes, cold sweats, nausea, diarrhea, and progressive weakness. There is pain diffusely throughout the lower abdomen which she has difficulties describing; it does not radiate and she gives no aggravating or alleviating factors. She feels a little bit bloated and has been passing quite a bit of flatus. She has not noticed any blood or mucus in the stool. Diarrhea seems to have slowed down. She is only had a half a sandwich in the last 2 days. She has not had a documented fever and denies vomiting, epigastric pain, chest pain, shortness of breath, melena, hematochezia, and dysuria. Of note she had a fall 3 weeks ago and sustained a posttraumatic hematoma to the left hip which is improving. In the ED: She was afebrile on arrival with stable vital signs. Labs were significant for WBC count of 10.1, sodium 135, potassium 2.8, chloride 90, carbon dioxide greater than 40, AST 39. She was hydrated in the ED and potassium was supplemented and she is being admitted in this setting for further treatment and evaluation. Review of Systems Review of Systems: 12 systems were reviewed and are negative except for as per HPI. [facility] Past Medical History Medical History (Updated 09/02/23 @ 00:13 by Beena Carrasco PA-C) Chronic GERD Chronic obstructive pulmonary disease Chronic pain syndrome Chronic respiratory failure with hypoxia Deep venous thrombosis Depression with anxiety Hiatal hernia Obstructive sleep apnea Surgical History Surgical History (Updated 09/01/23 @ 22:14 by Beena Carrasco PA-C) History of bladder repair surgery History of breast surgery History of cataract extraction History of cholecystectomy History of colonoscopy History of esophagogastroduodenoscopy History of foot surgery History of fusion of cervical spine History of hernia repair History of hysterectomy History of spinal surgery History of tonsillectomy Family History Family History Father Bladder cancer Mother Hypertension Depression Sibling Asthma Hypertension Depression Grandparent Hypertension Heart disease Cerebrovascular accident Grandparent Alcoholism Lung cancer Social History Social History (Updated 09/01/23 @ 22:14 by Beena Carrasco PA-C) Social History: Surrogate medical decision maker: Tyrone Bullard, son. Code status: Full code. Smoking packs per day: 1 Smoking cigarettes per day: 20.0 Years smoked: 38 Smoking pack-years: 38.00 Smoking status: Former smoker Tobacco type: cigarettes Second hand tobacco smoke exposure: No Alcohol intake: never Drinks per week: 1 Substance use: never Substance use type: does not use Do You Feel Safe in your Home?: Yes Lack of Transportation: No Lack of Food: Never True Current Housing: I Have Housing Concerned About Future Housing: No Difficulty Paying Gas/Electric Bills: Decline to Answer Difficulty Paying for Meds: Decline to Answer Currently Unemployed: Decline to Answer Education: Associate Degree Difficulty w/ Childcare or Family Care: No Additional living arrangements comments: with 3 children. 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 Spiritual care concerns: No Meds Home Medications and Allergies Home Medications Medication Instructions Recorded Confirmed Type furosemid
[2023-09-01 17:32] LABS: Influenza A QL RT-PCR Negative (Negative); Influenza B QL RT-PCR Negative (Negative); RSV RNA, RT-PCR Negative (Negative); SARS-CoV-2 RNA PCR Negative (Negative)
--- NOTE | 2023-09-01 17:50 | PC.NURSE ---
This patient, Jazmin Bullard, was admitted to [address] [place] [address] Room 325-02. Patient/family oriented to hospital policies and general routines including ID bracelet, bed and alarms, visiting hours, pain management, procedures, bathroom and other care routines, personal items, smoking policy, room service/diet, and visiting hours. Information on how to activate the Rapid Response Team has been discussed. Patient/Family are encouraged to report perceived risks to care and to ask questions if they do not understand what they are told or what they should do.
[2023-09-01] MEDS: LIDOCAINE 5% PATCH 1 PATCH TRANSDERM (23:06)
[2023-09-01 23:23] LABS: Anion Gap 3 mmol/L (4-12); Blood Urea Nitrogen 14 mg/dL (7-17); Calcium 8.2 mg/dL (8.4-10.2); Carbon Dioxide 36 mmol/L (22-30); Chloride 98 mmol/L (98-107); Estimated Glomerular Filt Rate > 60; Glucose 107 mg/dL (65-110); Magnesium 1.7 mg/dL (1.6-2.3); Potassium 3.7 mmol/L (3.4-5.0); Sodium 137 mmol/L (137-145)
[2023-09-01] MEDS: oxyCODONE/ACETAMINOPHEN (*CRX) 5-325 MG TABLET 1 TABLET PO (23:51)
[2023-09-02] VITALS (8 sets, daily range): BP systolic 91–137; BP diastolic 50–81; PULSE 70–92; RESP 14–18; TEMP 36–36.8; O2SAT 95–100
[2023-09-02 04:33] LABS: Appearance Urine Clear (Clear); Bilirubin Urine Negative (Negative); Blood Urine Negative (Negative); Color Urine Yellow (Yellow); Glucose Urine UA Negative (Negative); Ketones Urine 1+ mg/dL (Negative); Leukocyte Esterase Ur Negative LEU/UL (Negative); Nitrate Urine Negative (Negative); Protein Urine Negative (Negative)
[2023-09-02 04:35] LABS: Add Urine Microscopic? NO; Specific Grav Ur 1.055 (1.001-1.035)
[2023-09-02] MEDS: oxyCODONE/ACETAMINOPHEN (*CRX) 5-325 MG TABLET 1 TABLET PO ×2 (06:03→12:08)
[2023-09-02 06:27] LABS: Hematocrit 37.4 % (37.0-47.0); Hemoglobin 11.3 g/dL (12.0-15.0); Mean Corpuscular HGB Conc 30.2 g/dl (32-36); Mean Corpuscular Hemoglobin 28.2 pg (26-34); Mean Corpuscular Volume 93.3 fl (80-100); Mean Platelet Volume 9.4 fl (7.4-10.4); Platelet Count Result 187 k/mm3 (150-375); Red Blood Count 4.01 M/mm3 (4.2-5.4); Red Cell Distribution Width 15.5 % (11.5-14.5); White Blood Count 8.6 K/mm3 (4.5-10.0)
[2023-09-02 06:39] LABS: Anion Gap 0 mmol/L (4-12); Blood Urea Nitrogen 13 mg/dL (7-17); Calcium 8.5 mg/dL (8.4-10.2); Carbon Dioxide 38 mmol/L (22-30); Chloride 99 mmol/L (98-107); Estimated Glomerular Filt Rate > 60; Glucose 97 mg/dL (65-110); Magnesium 1.8 mg/dL (1.6-2.3); Potassium 4.3 mmol/L (3.4-5.0); Sodium 137 mmol/L (137-145)
[2023-09-02] MEDS: CITALOPRAM HYDROBROMIDE 20 MG TABLET PO (07:44)
[2023-09-02] MEDS: PREGABALIN (*CRX) 50 MG CAPSULE 100 MG PO ×2 (07:44→16:41)
[2023-09-02] MEDS: PANTOPRAZOLE 40 MG TABLET PO (07:44)
[2023-09-02] MEDS: CHOLECALCIFEROL 1,000 UNITS TABLET 1000 UNITS PO (07:44)
[2023-09-02] MEDS: MEMANTINE 5 MG TABLET PO ×2 (07:44→20:23)
[2023-09-02] MEDS: FERROUS SULFATE 325 MG TABLET DR PO (07:44)
[2023-09-02] MEDS: FLUTICASONE/UMECLIDIN/VILANTER 100-62.5-25 MCG ELLIPTA 1 PUFF INHALATION (08:31)
--- NOTE | 2023-09-02 15:18 | PM.IMPN ---
Progress Note: A&P Assessment and Plan (1) Gastroenteritis: Code(s): K52.9 - Noninfective gastroenteritis and colitis, unspecified Status: Acute Assessment and Plan: The patient presents for evaluation of multiple GI symptoms including nausea, diarrhea, and weakness. Her history seems consistent with a probable viral gastroenteritis CT Abdomen/Pelvis showing no definitive acute abnormality seen. She was hydrated but currently off IV fluids. Nausea has resolved. No further diarrhea. Still not eating well. She has had weight loss due to the gastroenteritis Also states today that she had blood per rectum. Probably hemorrhoidal. Stool guaiac would be helpful if negative but positive test not useful Monitor. Start PT OT (2) Hypokalemia: Code(s): E87.6 - Hypokalemia Status: Acute Assessment and Plan: Potassium 2.8 on admission related to above. This has been replaced. Repeat potassium normal pain Follow (3) Dehydration: Code(s): E86.0 - Dehydration Status: Acute Assessment and Plan: Patient with dehydration related to gastroenteritis. Currently off IV fluids but not eating much Encourage oral intake (4) Chronic obstructive pulmonary disease: Code(s): J44.9 - Chronic obstructive pulmonary disease, unspecified Status: Acute Assessment and Plan: Stable. No wheezing CT scan through the lung bases showed bibasilar atelectasis or scarring. (5) Chronic respiratory failure with hypoxia: Code(s): J96.11 - Chronic respiratory failure with hypoxia Status: Acute Assessment and Plan: Patient requires 2 L of oxygen at rest, 3 L with activity and 3 L at sleep. She is at baseline. Continue to monitor (6) Chronic pain syndrome: Code(s): G89.4 - Chronic pain syndrome Status: Acute Assessment and Plan: Stable. Plan DVT prophylaxis -SCDs Code status -full Subjective Date/time seen: 09/02/23 15:18 Interval history: 88yo female with HTN, HLD, diastolic dysfunction, DVT, COPD, ROSALIA and chronic respiratory failure on 2L at rest and 3L with activity/sleep here for weakness and GI symptoms. Assuming care. Chart reviewed. She denies n/v. Appetite poor. Lost 9# in 10 days. no furthre diarrhea. Was in [place] recently. No sick contacts. No abd pain. Did have red blod per rectum priro to admission. Complains that she does not sleep. Exam Narrative: AF 96.8 91/59 80 14 96% 2L Gen - NARD Chest - left bas crackles. CV - RRR S1/S2 Abd - doft, NT/ND, +BS Ext - No pedal edema. old left soft tissue mass lateral hip c/w old hematoma Psych - Nml mood and affect Skin - Warm and dry Objective Data Vital Signs Vital Signs: Vital Signs - 24 hr 09/01/23 16:18 09/01/23 16:32 09/01/23 17:36 Temperature Pulse Rate 88 112 H 85 Respiratory Rate 11 L 18 Blood Pressure 108/60 126/95 H Pulse Oximetry 98 98 Oxygen Delivery Oxygen Flow Rate 09/01/23 18:22 09/01/23 18:10 09/01/23 21:03 Temperature 96.9 F L 97.7 F Pulse Rate 84 82 Respiratory Rate 18 16 Blood Pressure 133/59 L 137/77 Pulse Oximetry 97 97 98 Oxygen Delivery Nasal Cannula Oxygen Flow Rate 2 09/01/23 20:02 09/01/23 20:02 09/02/23 00:00 Temperature Pulse Rate 84 84 87 Respiratory Rate 16 Blood Pressure Pulse Oximetry 98 Oxygen Delivery Nasal Cannula Oxygen Flow Rate 3 09/02/23 04:02 09/02/23 04:54 09/02/23 08:00 Temperature 98.2 F Pulse Rate 91 83 83 Respiratory Rate 16 16 Blood Pressure 137/81 Pulse Oximetry 100 100 Oxygen Delivery Nasal Cannula Oxygen Flow Rate 2 09/02/23 14:00 09/02/23 08:00 09/02/23 12:00 Temperature 96.8 F L Pulse Rate 80 92 87 Respiratory Rate 14 Blood Pressure 91/59 L Pulse Oximetry 96 Oxygen Delivery Oxygen Flow Rate Intake/Output Intake/Output: Intake & Output 08/30/23 08/31/23 09/01/23 09/02/23 23:59 2
[2023-09-02] MEDS: AMITRIPTYLINE HCL 25 MG TABLET PO (20:22)
[2023-09-02] MEDS: ATORVASTATIN 40 MG TABLET 80 MG PO (20:22)
[2023-09-02] MEDS: MELATONIN 3 MG TABLET PO (20:22)
[2023-09-02] MEDS: PRAMIPEXOLE 0.5 MG TABLET PO (20:22)
[2023-09-03] VITALS (13 sets, daily range): BP systolic 83–115; BP diastolic 43–75; PULSE 72–91; RESP 16–20; TEMP 35.8–36.6; O2SAT 95–97
[2023-09-03] MEDS: oxyCODONE/ACETAMINOPHEN (*CRX) 5-325 MG TABLET 1 TABLET PO ×2 (06:02→10:33)
[2023-09-03 06:17] LABS: Hematocrit 38.3 % (37.0-47.0); Hemoglobin 11.4 g/dL (12.0-15.0); Mean Corpuscular HGB Conc 29.8 g/dl (32-36); Mean Corpuscular Hemoglobin 28.3 pg (26-34); Mean Platelet Volume 9.5 fl (7.4-10.4); Platelet Count Result 200 k/mm3 (150-375); Red Blood Count 4.03 M/mm3 (4.2-5.4); Red Cell Distribution Width 15.4 % (11.5-14.5); White Blood Count 7.5 K/mm3 (4.5-10.0)
[2023-09-03 06:24] LABS: Albumin Level 3.3 g/dL (3.5-5.1); Anion Gap 1 mmol/L (4-12); Blood Urea Nitrogen 15 mg/dL (7-17); Calcium 8.8 mg/dL (8.4-10.2); Carbon Dioxide 37 mmol/L (22-30); Chloride 100 mmol/L (98-107); Estimated Glomerular Filt Rate 52; Glucose 98 mg/dL (65-110); Phosphorus 4.3 mg/dL (2.5-4.5); Potassium 3.9 mmol/L (3.4-5.0); Sodium 138 mmol/L (137-145)
[2023-09-03] MEDS: FLUTICASONE/UMECLIDIN/VILANTER 100-62.5-25 MCG ELLIPTA 1 PUFF INHALATION (07:35)
[2023-09-03] MEDS: PREGABALIN (*CRX) 50 MG CAPSULE 100 MG PO ×2 (08:03→16:42)
[2023-09-03] MEDS: PANTOPRAZOLE 40 MG TABLET PO (08:03)
[2023-09-03] MEDS: CHOLECALCIFEROL 1,000 UNITS TABLET 1000 UNITS PO (08:03)
[2023-09-03] MEDS: CITALOPRAM HYDROBROMIDE 20 MG TABLET PO (08:06)
[2023-09-03] MEDS: MEMANTINE 5 MG TABLET PO ×2 (08:06→20:10)
--- NOTE | 2023-09-03 14:04 | PM.IMPN ---
Progress Note: A&P Assessment and Plan (1) Gastroenteritis: Code(s): K52.9 - Noninfective gastroenteritis and colitis, unspecified Status: Acute Assessment and Plan: The patient presents for evaluation of multiple GI symptoms including nausea, diarrhea, and weakness. Her history seems consistent with a probable viral gastroenteritis CT Abdomen/Pelvis showing no definitive acute abnormality seen. She was hydrated but currently off IV fluids. Nausea has resolved. No further diarrhea. She has had weight loss due to the gastroenteritis Eating better now. Monitor. Continue PT OT. Care coordination consult for possible SNF (2) Hypokalemia: Code(s): E87.6 - Hypokalemia Status: Acute Assessment and Plan: Potassium 2.8 on admission related to above. This has been replaced. Repeat potassium normal pain Follow (3) Dehydration: Code(s): E86.0 - Dehydration Status: Acute Assessment and Plan: Patient with dehydration related to gastroenteritis. Currently off IV fluids Eating better. Change to regular diet (4) Chronic obstructive pulmonary disease: Code(s): J44.9 - Chronic obstructive pulmonary disease, unspecified Status: Acute Assessment and Plan: Stable. No wheezing CT scan through the lung bases showed bibasilar atelectasis or scarring. (5) Chronic respiratory failure with hypoxia: Code(s): J96.11 - Chronic respiratory failure with hypoxia Status: Acute Assessment and Plan: Patient requires 2 L of oxygen at rest, 3 L with activity and 3 L at sleep. She is at baseline. Continue to monitor (6) Chronic pain syndrome: Code(s): G89.4 - Chronic pain syndrome Status: Acute Assessment and Plan: Stable. (7) Atrial fibrillation: Code(s): I48.91 - Unspecified atrial fibrillation Status: Acute Assessment and Plan: Patient has a hx of pAFib and noted on tele She is off anticoagulation due to left hip hematoma okay to stop tele Plan DVT prophylaxis -SCDs Code status -full Subjective Date/time seen: 09/03/23 14:04 Interval history: 88yo female with HTN, HLD, diastolic dysfunction, DVT, COPD, ROSALIA and chronic respiratory failure on 2L at rest and 3L with activity/sleep here for weakness and GI symptoms. No CP or SOB. No further n/v. No diarrhea. Eating better with improved appetite. Was having lower abdominal pain but better with pain medciation. Was feeling 'wobbly' when walking with walker to BR Exam Narrative: AF 96.6 110/60 87 20 95% 3L Gen - NARD Chest - bibasilar crackles, nml RR CV - RRR S1/S2. Tele showing brief run of probably AFib Abd - soft, NT/ND, +BS Ext - No pedal edema. old left soft tissue mass lateral hip c/w old hematoma Psych - Nml mood and affect Skin - Warm and dry Objective Data Vital Signs Vital Signs: Vital Signs - 24 hr 09/02/23 14:53 09/02/23 16:00 09/02/23 20:00 Temperature 97.0 F L Pulse Rate 70 73 Respiratory Rate 18 Blood Pressure 100/50 L Pulse Oximetry 95 Oxygen Delivery Nasal Cannula Oxygen Flow Rate 3 Fraction of Inspired Oxygen 09/02/23 20:00 09/03/23 06:00 09/03/23 07:35 Temperature 96.6 F L Pulse Rate 73 72 Respiratory Rate 18 20 Blood Pressure 100/69 Pulse Oximetry 95 95 95 Oxygen Delivery Nasal Cannula Nasal Cannula Oxygen Flow Rate 3 3 Fraction of Inspired Oxygen 32 09/03/23 07:35 09/03/23 09:33 09/03/23 09:33 Temperature Pulse Rate 75 85 85 Respiratory Rate 20 Blood Pressure Pulse Oximetry Oxygen Delivery Oxygen Flow Rate Fraction of Inspired Oxygen 09/03/23 08:00 09/03/23 10:30 09/03/23 11:17 Temperature Pulse Rate Respiratory Rate Blood Pressure 110/60 Pulse Oximetry 95 Oxygen Delivery Nasal Cannula Nasal Cannula Oxygen Flow Rate 2 3 Fraction of Inspired Oxygen 09/03/23 12:00 Temperature Pulse Rate 8
[2023-09-03] MEDS: HYDROcodone/acetaminophen (*CRX) 5-325 MG TABLET 1 TAB PO (16:44)
--- NOTE | 2023-09-03 18:40 | PC.NURSE ---
Dr Harris notified of bp 87/43. patient asymptomatic
[2023-09-03] MEDS: MIDODRINE HCL 10 MG TABLET PO (19:05)
[2023-09-03] MEDS: MELATONIN 3 MG TABLET PO (20:10)
[2023-09-03] MEDS: PRAMIPEXOLE 0.5 MG TABLET PO (20:10)
[2023-09-03] MEDS: ATORVASTATIN 40 MG TABLET 80 MG PO (20:10)
[2023-09-04] VITALS (8 sets, daily range): BP systolic 110; BP diastolic 60–70; PULSE 72–96; RESP 14–20; TEMP 36.1; O2SAT 96–100
[2023-09-04] MEDS: HYDROcodone/acetaminophen (*CRX) 5-325 MG TABLET 1 TAB PO (07:00)
[2023-09-04] MEDS: FLUTICASONE/UMECLIDIN/VILANTER 100-62.5-25 MCG ELLIPTA 1 PUFF INHALATION (08:12)
[2023-09-04] MEDS: FERROUS SULFATE 325 MG TABLET DR PO (09:10)
[2023-09-04] MEDS: CHOLECALCIFEROL 1,000 UNITS TABLET 1000 UNITS PO (09:10)
[2023-09-04] MEDS: MEMANTINE 5 MG TABLET PO (09:10)
[2023-09-04] MEDS: CITALOPRAM HYDROBROMIDE 20 MG TABLET PO (09:10)
[2023-09-04] MEDS: MIDODRINE HCL 10 MG TABLET PO (09:10)
[2023-09-04] MEDS: PANTOPRAZOLE 40 MG TABLET PO (09:11)
[2023-09-04] MEDS: PREGABALIN (*CRX) 50 MG CAPSULE 100 MG PO (09:11)
[2023-09-04] MEDS: ACETAMINOPHEN 325 MG TABLET 650 MG PO (13:56)
--- NOTE | 2023-09-04 14:52 | PM.DS ---
DS: Admitting Diagnosis Discharge Date 09/04/23 Admitting Diagnosis Weakness and GI symptoms DS: Discharge Diagnosis Discharge Diagnosis (1) Gastroenteritis: Code(s): K52.9 - Noninfective gastroenteritis and colitis, unspecified Status: Acute (2) Hypokalemia: Code(s): E87.6 - Hypokalemia Status: Acute (3) Dehydration: Code(s): E86.0 - Dehydration Status: Acute (4) Chronic obstructive pulmonary disease: Code(s): J44.9 - Chronic obstructive pulmonary disease, unspecified Status: Acute (5) Chronic respiratory failure with hypoxia: Code(s): J96.11 - Chronic respiratory failure with hypoxia Status: Acute (6) Chronic pain syndrome: Code(s): G89.4 - Chronic pain syndrome Status: Acute (7) Atrial fibrillation: Code(s): I48.91 - Unspecified atrial fibrillation Status: Acute DS: Summary Hospital Course Reason for hospitalization: 88yo female with HTN, HLD, diastolic dysfunction, DVT, COPD, ROSALIA and chronic respiratory failure on 2L at rest and 3L with activity/sleep here for weakness and GI symptoms. Please see H&P for details. Hospital Course: The patient presents for evaluation of multiple GI symptoms including nausea, diarrhea, and weakness. Her history seems consistent with a probable viral gastroenteritis. CT Abdomen/Pelvis showing no definitive acute abnormality seen. She was hydrated withf IV fluids. Nausea has resolved.? No further diarrhea. She has had weight loss due to the gastroenteritis but eating better now. She worked with PT OT. Potassium 2.8 on admission related to above.? This has been replaced. Repeat potassium normal. Patient with chronic obstructive pulmonary disease. CT scan through the lung bases showed bibasilar atelectasis or scarring. She has chronic respiratory failure with hypoxia requiring 2 L of oxygen at rest, 3 L with activity and 3 L at sleep. Patient has a hx of pAFib and noted on tele. She is off anticoagulation due to left hip hematoma. Patient noted to have low BP. Patient has chronic low BP and PT/OT at her facility has refused to work with her because of low BP in the past and she was started on midodrine 10mg bid but this had not harris added to the med reconciliation list on admission. We resume midodrine with benefit. This can interact with the Elavil so we weaned off the Elavil. She had not voided overnight and noted to have 450ml in her bladder. She was haing lower abdominal pain and required in/out catheterization with 450mL removed. She has been voiding okay since and Elvail now stopped. Lastbladder scan was 1.4mL. Okay to discharge today. Status at Discharge Cognitive/behavioral status at discharge: stable Time Spent with Patient Time attestation: Total time spent providing and/or coordinating discharge services: 35 minutes Time spent: Greater than 30 minutes Exam Narrative: AF 97.0 110/70 72 20 96% 3L Gen - NARD Chest - left base crackles, nml RR CV - RRR S1/S2. Tele showing brief run of probably PVCs Abd - soft, NT/ND, +BS Ext - No pedal edema. old left soft tissue mass lateral hip c/w old hematoma Psych - Nml mood and affect Skin - Warm and dry Discharge Plan Discharge Attending physician on discharge: Myron Harris Discharging Clinician: Myron Harris Anticipated Discharge Date/Time: 09/04/23 15:00 Patient Disposition: NH Residential/Asst Living Activity: as tolerated Diet: regular Discharge Instructions: Per Care Coordination: Patient to receive OP PT/OT eval and treat at Assisted Living two to three times a week as needed. Patient requires 2 L of oxygen at rest, 3 L with activity and 3 L at sleep. Check blood pressure 1 to 2 times a day. Record for the doctor's review. Take precautions to avoid falls. Rise slowly from a lying or sitting position. Pause before standing or walking. Monitor for urine retention. Okay to check bladder scan for con
== END 2023-09-04 17:30 | DRG 392 ==
LOC: ANHED 17:00 → ANH3MEDSUR 17:14
PROVIDERS: Physician Assistant; Admitting Provider General Practice; Emergency Provider Emergency Medicine; PCP Physician Assistant; Visit Provider Internal Medicine
DX: A08.4 Viral intestinal infection, unspecified (principal); J96.11 Chronic respiratory failure with hypoxia; E87.6 Hypokalemia; E86.0 Dehydration; J44.9 Chronic obstructive pulmonary disease, unspecified; G89.4 Chronic pain syndrome; I48.91 Unspecified atrial fibrillation; E78.5 Hyperlipidemia, unspecified; G47.33 Obstructive sleep apnea (adult) (pediatric); K21.9 Gastro-esophageal reflux disease without esophagitis; D50.9 Iron deficiency anemia, unspecified; F41.9 Anxiety disorder, unspecified; K44.9 Diaphragmatic hernia without obstruction or gangrene; F41.8 Other specified anxiety disorders; I49.3 Ventricular premature depolarization; Z20.822 Contact with and (suspected) exposure to COVID-19; S70.02XD Contusion of left hip, subsequent encounter; Z86.718 Personal history of other venous thrombosis and embolism; Z99.81 Dependence on supplemental oxygen; Z90.49 Acquired absence of other specified parts of digestive tract; Z98.1 Arthrodesis status; Z90.710 Acquired absence of both cervix and uterus; Z87.891 Personal history of nicotine dependence
CPT/HCPCS: 36415; 74177; 80048; 80053; 80069; 81003; 83735; 85025; 85027; 87637; 93005; 94640; 96365; 97110; 97161; 97165; 97530; 99285; A9270; G0378; J3480; J7040; J7120; Q9967

== ENCOUNTER 2023-09-15 08:59 | Outpatient (CLI) | payer MEDICARE, SELFPAY ==
[2023-09-15 09:25] LABS: Basophils Absolute Auto 0.1 K/mm3 (0.0-0.1); Basophils Percent Auto 0.6 % (0.2-1.2); Eosinophils Absolute Auto 0.2 K/mm3 (0-0.3); Eosinophils Percent Auto 1.5 % (0-4.4); Hematocrit 43.4 % (37.0-47.0); Immature Granulocyte Absolute 0.05 K/mm3 (0.00-0.031); Immature Granulocyte Percent A 0.4 % (0-0.5); Lymphocytes Absolute Auto 1.92 K/mm3 (0.9-3.2); Lymphocytes Percent Auto 15.5 % (18.3-44.2); Mean Corpuscular Volume 93.3 fl (80-100); Mean Platelet Volume 9.5 fl (7.4-10.4); Monocytes Absolute Auto 0.8 K/mm3 (0.1-0.6); Monocytes Percent Auto 6.4 % (2.6-8.5); Neutrophils Absolute Auto 9.4 K/mm3 (1.3-6.7); Neutrophils Percent Auto 75.6 % (45.5-73.1); Platelet Count Result 252 k/mm3 (150-375); Red Blood Count 4.65 M/mm3 (4.2-5.4); Red Cell Distribution Width 14.6 % (11.5-14.5); White Blood Count 12.4 K/mm3 (4.5-10.0)
[2023-09-15 09:36] LABS: Anion Gap 9 mmol/L (4-12); Blood Urea Nitrogen 19 mg/dL (7-17); Calcium 9.3 mg/dL (8.4-10.2); Carbon Dioxide 34 mmol/L (22-30); Chloride 96 mmol/L (98-107); Estimated Glomerular Filt Rate 52; Glucose 119 mg/dL (65-110); Potassium 3.5 mmol/L (3.4-5.0); Sodium 139 mmol/L (137-145)
[2023-09-15 09:48] LABS: Iron 62 ug/dL (37-170)
== END 2023-09-15 09:00 | disposition home or self-care (01) ==
LOC: ANHLAB 09:04
PROVIDERS: PCP Physician Assistant; Visit Provider Physician Assistant
DX: E87.6 Hypokalemia (principal); D50.9 Iron deficiency anemia, unspecified; Z79.899 Other long term (current) drug therapy
CPT/HCPCS: 36415; 80048; 83540; 85025

== ENCOUNTER 2023-09-17 10:14 | Inpatient (IN) | payer MEDICARE, SELFPAY ==
[2023-09-17] VITALS (11 sets, daily range): BP systolic 86–136; BP diastolic 43–80; PULSE 71–120; RESP 16–24; TEMP 36.3–36.8; O2SAT 91–98; BMI 31.8
--- NOTE | ~2023-09-17 | CT_ITS ---
EXAMINATION: CT lumbar spine wo con DATE: 09/17/2023 11:14 INDICATION: Ground-level fall. TECHNIQUE: Computed tomography (CT) of the lumbar spine was performed without intravenous contrast. A utomated exposure control and iterative reconstruction technique were employed. The dose-length produ ct was 845.48 mGy-cm. COMPARISON: CT abdomen and pelvis 09/02/2023 FINDINGS: The visualized portions of the lung bases demonstrate mild atelectasis. Calcified left lung nodules are consistent with old granulomatous disease. There is a large sliding hiatal hernia. Calci fications in the spleen are consistent with old granulomatous disease. There is calcified atheroscler osis of the aorta and many of the other arteries. There is 6 degrees dextrocurvature of lumbar spine. There is 3 mm anterolisthesis of L5 on S1. There are chronic burst fractures of T11, T12, L1, and L2 with mild central canal stenosis and changes of vertebroplasty at T12. There is mildly decreased dis c height at L2-L3 and severely decreased disc height from L3-L4 through L5-S1. There is focal kyphosi s at T12. The following disc levels are specifically discussed: T12-L1: The disc is bulging. There is severe bilateral facet joint osteoarthritis. There is no neural foraminal stenosis. There is mild central canal stenosis. L1-L2: The disc is bulging. There is severe bilateral facet joint osteoarthritis. There is moderate b ilateral neural foraminal stenosis. There is mild central canal stenosis. L2-L3: The disc is bulging. There is severe bilateral facet joint osteoarthritis. There is moderate b ilateral neural foraminal stenosis. There is mild central canal stenosis. L3-L4: The disc is bulging. There is severe bilateral facet joint osteoarthritis. There is moderate b ilateral neural foraminal stenosis. There is moderate central canal stenosis. L4-L5: The disc is bulging. There is severe right and moderate left facet joint osteoarthritis. There is moderate bilateral neural foraminal stenosis. There is moderate central canal stenosis. L5-S1: The disc is bulging. There is severe bilateral facet joint osteoarthritis. There is moderate b ilateral neural foraminal stenosis. There is moderate central canal stenosis. IMPRESSION: 1. Severe lumbar spondylosis. 2. Large sliding hiatal hernia. Reviewed, dictated and finalized at location A.
--- NOTE | ~2023-09-17 | CT_ITS ---
Non-contrast Head CT History: Status post fall COMPARISON: 07/15/2023 Technique: Axial non-contrast imaging of the brain was performed. Dose reduction technique was used on this scan by utilizing automated exposure control and iterative reconstruction technique. The dose -length product (DLP) was 605.33 mGy-cm. Findings: There is no evidence of intracranial hemorrhage, mass lesion, or acute infarct. Minimal hy podense areas are present in the periventricular white matter bilaterally. The ventricles and subara chnoid spaces are normal in size. The calvarium appears normal. The visualized paranasal sinuses an d mastoid air cells are clear. Impression: No acute abnormality seen. Mild chronic microvascular ischemic changes. Reviewed, dictated and finalized at location . Impression: No acute abnormality seen. Mild chronic microvascular ischemic changes.
--- NOTE | ~2023-09-17 | XR_ITS ---
EXAMINATION: XR chest 1V portable DATE: 09/17/2023 11:22 INDICATION: Recurring falls. TECHNIQUE: A single frontal view of the chest was obtained. COMPARISON: Chest 2 views 04/16/2023, CT abdomen and pelvis 09/02/2023 FINDINGS: There is mild elevation of right hemidiaphragm. There is mild atelectasis in the mid and lo wer lung zones. No pleural effusion or pneumothorax. The heart size is normal. There is a large hiata l hernia. There are changes of posterior fusion procedure in cervical spine. There is an old healed f racture of proximal left humerus. IMPRESSION: 1. Mild atelectasis in the mid and lower lung zones. 2. Large hiatal hernia. Reviewed, dictated and finalized at location A.
--- NOTE | ~2023-09-17 | CT_ITS ---
EXAMINATION: CT pelvis wo con DATE: 09/17/2023 11:14 INDICATION: Fall. TECHNIQUE: Computed tomography (CT) of the pelvis was performed without intravenous contrast. Automat ed exposure control and iterative reconstruction technique were employed. The dose-length product was 359.05 mGy-cm. COMPARISON: CT abdomen and pelvis 09/02/2023 FINDINGS: There is diverticulosis of the colon without evidence of diverticulitis. There are no dilat ed loops of bowel. There is a 2.6 cm cyst in left kidney. There is a 3 mm stone in left kidney. There is calcified atherosclerosis of the aorta and many of the other arteries. There are no pathologicall y enlarged lymph nodes. There is no free intraperitoneal fluid. There is severe lumbar spondylosis. T here is an old healed fracture of proximal right femur with internal fixation. There is moderate oste oarthritis of the hips. There is an old healed fracture of right inferior pubic ramus. There is a sub cutaneous hematoma lateral to proximal left femur. IMPRESSION: 1. No acute fracture. 2. Subcutaneous hematoma lateral to proximal left femur. Reviewed, dictated and finalized at location A.
--- NOTE | ~2023-09-17 | CT_ITS ---
Noncontrast CT scan of the cervical spine Technique: Multiple contiguous axial [address] images of the cervical spine were obtained and rec onstructed in 2D sagittal and coronal planes on the acquisition scanner. Dose reduction technique was used on this scan by utilizing automated exposure control, adjustment of the mA and/or kV according to patient size. The dose-length product (DLP) was 294.88 mGy-cm. Clinical History: Pain COMPARISON: 11/16/2022 Findings: No acute fracture or subluxation. Osseous alignment is unchanged. Posterior fusion from C3 through C6 is unchanged, with posterior decompression at these levels. Stable multilevel neural nic inal narrowing is present. Stable facet joint arthropathy/degenerative change and fusion changes. The re is severe degenerative disc change at C2-C3. There is probable fusion across the C6-C7 disc space. No alvaro spinal canal stenosis evident. No prevertebral soft tissue swelling. Impression: No fracture or subluxation of the cervical spine. Advanced degenerative spondylosis with posterior fusion changes from C3 through C6, stable from prior exam. Reviewed, dictated and finalized at [facility]. Impression: No fracture or subluxation of the cervical spine. Advanced degenerative spondylosis with posterior fusion changes from C3 through C6, stable from prior exam.
--- NOTE | 2023-09-17 10:19 | ECG_ITS ---
[facility] [address] Test Date: 2023-09-17 Pat Name: Jazmin Bullard Department: Room: Gender: F Family Practice Physician: : [id number] Requested By: Erika Valle Order Number: [id number] Reading MD: Howie Fraire M.D. Measurements Intervals [place] Rate: 78 P: 48 DE: 167 QRS: 16 QRSD: 146 T: -5 QT: 403 QTc: 461 Interpretive Statements SINUS RHYTHM WITH OCCASIONAL VENTRICULAR PREMATURE COMPLEXES RIGHT BUNDLE BRANCH BLOCK [120+ ms QRS DURATION, UPRIGHT V1, 40+ ms S IN I/aVL/V4/V5/V6] No previous ECG available for comparison Electronically Signed On 09-17-2023 13:49:22 CDT by Howie Fraire M.D.
[2023-09-17 10:47] LABS: Appearance Urine Turbid (Clear); Bacteria Urine 4+ /hpf; Bilirubin Urine Negative (Negative); Blood Urine Trace (Negative); Color Urine Dark Yellow (Yellow); Glucose Urine UA Negative (Negative); Ketones Urine Negative (Negative); Leukocyte Esterase Ur 3+ LEU/UL (Negative); Nitrate Urine Positive (Negative); Protein Urine 1+ mg/dL (Negative); RBC Urine 0-2 /hpf (0-2); Specific Grav Ur 1.017 (1.001-1.035); Squamous Epithelial Cell Urine None Seen /hpf (Few); WBC Urine >100 /hpf (0-3)
[2023-09-17] MEDS: SODIUM CHLORIDE 0.9% IV 1,000 ML 999 ML IV CONT (10:47)
[2023-09-17 10:52] LABS: Add Urine Microscopic? YES
--- NOTE | 2023-09-17 10:55 | ED.FALL ---
HPI - Fall General Chief Complaint: Fall <Erika Farr PA-C - Last Filed: 09/17/23 19:19> Stated Complaint: glf <Erika Farr PA-C - Last Filed: 09/17/23 19:19> Time Seen by Provider: 09/17/23 10:14 <Erika Farr PA-C - Last Filed: 09/17/23 19:19> History of Present Illness HPI Narrative: 88-year-old female with history of atrial fibrillation, chronic hypoxic respiratory failure on the 3 L nasal cannula baseline, COPD presents to the ED via EMS from [facility] following a ground level fall. Patient states she had a fall around 0 400 this morning. States she went to go to the bathroom and fell to the ground, she is unsure what caused her fall. She states she did not hit her head or lose consciousness, she does not remember how she landed. She states she fell again prior to arrival when she was putting away her laundry, tripped over a drawer behind her and fell onto her back and buttock, then hit her head on the ground. She denies loss of consciousness then. She is reporting pain to her back and her left hip. She has a prior history of hip replacement. She denies chest pain or shortness of breath, headache or vision changes, focal numbness or weakness, abdominal pain, N/ V/ D, dysuria or hematuria, fever. She is also found to be hypotensive upon arrival 86/55. Per chart review she does have a history of hypotension and she is on midodrine. States she does not feel lightheaded or dizzy. States she took her prescribed oxycodone prior to arrival with improvement. <Erika Farr PA-C - Last Filed: 09/17/23 19:19> Related Data Home Medications: Home Medications Medication Instructions Recorded Confirmed atorvastatin 80 mg tablet 80 mg PO HS 03/04/22 09/17/23 memantine 5 mg tablet 5 mg PO BID 03/04/22 09/17/23 pramipexole 0.5 mg tablet (Mirapex) 0.5 mg PO HS 03/07/22 09/17/23 ferrous sulfate 325 mg (65 mg 325 mg PO Q48H 10/01/22 09/17/23 iron) tablet pregabalin 100 mg capsule 100 mg PO BID 10/01/22 09/17/23 albuterol sulfate 2.5 mg/3 mL 2.5 mg inhalation Q8H PRN wheezing 10/13/22 09/17/23 (0.083 %) solution for nebulization cholecalciferol (vitamin D3) 25 25 mcg PO DAILY 10/13/22 09/17/23 mcg (1,000 unit) capsule (Vitamin D3) citalopram 20 mg tablet 20 mg PO QHS 02/20/23 09/17/23 guaifenesin 600 mg tablet, 600 mg PO Q12HR PRN Congestion 09/01/23 09/17/23 extended release 12 hr (Mucus Relief ER) lidocaine 4 % topical patch 1 patch transdermal DAILY PRN Back 09/01/23 09/17/23 (Lidocaine Pain Relief) Pain midodrine 10 mg tablet 10 mg PO BID 09/03/23 09/17/23 aripiprazole 2 mg tablet 2 mg PO QHS 09/17/23 09/17/23 bisacodyl 5 mg tablet,delayed 5 mg PO DAILY PRN constipation 09/17/23 09/17/23 release furosemide 20 mg tablet 20 mg PO DAILY 09/17/23 09/17/23 oxycodone-acetaminophen 7.5 mg-325 1 tablet PO Q6H PRN Pain (Scale 09/17/23 09/17/23 mg tablet Score 4-6) vit C 250 mg-vit E 90 mg-zinc 40 1 cap PO DAILY 09/17/23 09/17/23 mg-copper 1 [id number] capsule (PreserVision AREDS-2) <Erika Farr PA-C - Last Filed: 09/17/23 19:19> Allergies/Adverse Reactions: Allergies Allergy/AdvReac Type Severity Reaction Status Date / Time chlorpromazine Allergy Unknown Unknown Verified 09/17/23 10:21 [From Thorazine] diphenhydramine Allergy Unknown Unknown Verified 09/17/23 10:21 [From Benadryl] meperidine [From Demerol] Allergy Unknown Unknown Verified 09/17/23 10:21 rofecoxib [From Vioxx] Allergy Unknown Unknown Verified 09/17/23 10:21 zolpidem [From Ambien] Allergy Unknown Unknown Verified 09/17/23 10:21 <Erika Farr PA-C - Last Filed: 09/17/23 19:19> Review of Systems Review of Systems: CONSTITUTIONAL: Denies fever, chills, or sweats. EYES: Denies visual changes, redness, or discharge. ENT: Denies rhinorrhea, congestion, sore throat, or otalgia. CARDIOVASCULAR: Denies chest pain, palpitations, or edema. RESPIRATORY: Baudilio
[2023-09-17 10:56] LABS: Basophils Absolute Auto 0.1 K/mm3 (0.0-0.1); Basophils Percent Auto 0.4 % (0.2-1.2); Eosinophils Absolute Auto 0.1 K/mm3 (0-0.3); Eosinophils Percent Auto 1.2 % (0-4.4); Hematocrit 42.2 % (37.0-47.0); Hemoglobin 12.6 g/dL (12.0-15.0); Immature Granulocyte Absolute 0.05 K/mm3 (0.00-0.031); Immature Granulocyte Percent A 0.4 % (0-0.5); Lymphocytes Absolute Auto 1.72 K/mm3 (0.9-3.2); Lymphocytes Percent Auto 14.1 % (18.3-44.2); Mean Corpuscular HGB Conc 29.9 g/dl (32-36); Mean Corpuscular Hemoglobin 28.3 pg (26-34); Mean Corpuscular Volume 94.8 fl (80-100); Mean Platelet Volume 9.8 fl (7.4-10.4); Monocytes Absolute Auto 0.7 K/mm3 (0.1-0.6); Monocytes Percent Auto 5.6 % (2.6-8.5); Neutrophils Absolute Auto 9.5 K/mm3 (1.3-6.7); Neutrophils Percent Auto 78.3 % (45.5-73.1); Platelet Count Result 197 k/mm3 (150-375); Red Blood Count 4.45 M/mm3 (4.2-5.4); Red Cell Distribution Width 14.4 % (11.5-14.5); White Blood Count 12.2 K/mm3 (4.5-10.0)
--- NOTE | 2023-09-17 10:56 | PC.NURSE ---
Pt to XRAY and CT scan at this time.
[2023-09-17 11:23] LABS: Alanine Aminotransferase 22 U/L (6-35); Albumin Level 4.2 g/dL (3.5-5.1); Alkaline Phosphatase 96 U/L (38-126); Anion Gap 3 mmol/L (4-12); Aspartate Amino Transferase 32 U/L (14-36); Bilirubin,Total 0.8 mg/dL (0.2-1.3); Blood Urea Nitrogen 22 mg/dL (7-17); Calcium 8.8 mg/dL (8.4-10.2); Carbon Dioxide 39 mmol/L (22-30); Chloride 98 mmol/L (98-107); Estimated Glomerular Filt Rate 52; Glucose 75 mg/dL (65-110); Potassium 3.4 mmol/L (3.4-5.0); Sodium 140 mmol/L (137-145)
[2023-09-17 11:35] LABS: Troponin I < 0.012 ng/mL (0.000-0.034)
--- NOTE | 2023-09-17 15:18 | ADMGEN ---
This patient, Jazmin Bullard, was admitted to Medical Room 250-01. Patient/family oriented to hospital policies and general routines including ID bracelet, bed and alarms, visiting hours, pain management, procedures, bathroom and other care routines, personal items, smoking policy, room service/diet, and visiting hours. Information on how to activate the Rapid Response Team has been discussed. Patient/Family are encouraged to report perceived risks to care and to ask questions if they do not understand what they are told or what they should do.
[2023-09-17] MEDS: oxyCODONE/ACETAMINOPHEN (*CRX) 5-325 MG TABLET 1 TABLET PO ×2 (16:06→21:29)
--- NOTE | 2023-09-17 18:34 | PC.NURSE ---
removed bermudez catheter at 1800
--- NOTE | 2023-09-17 22:43 | PM.IMHP ---
H&P: HPI History of Present Illness Date/Time: 09/17/23 22:43 Chief Complaint: Patient brought to the ER for evaluation after a ground level fall in assisted living facility Narrative: Our patient is a pleasant 88 years old female with chronic medical issues who is an assisted living facility resident. She went to see her family in [place] in 1st week of August, fell down there and had left leg knee hematoma which is slowly improving. She was admitted in our facility 3 weeks ago with gastroenteritis, treated with antibiotics and released in stable condition. She was brought back again to the ER today for evaluation after a ground level fall at assisted living facility. She was feeling weak and tired and unable to ambulate with her walker which she uses at baseline. She was seen and evaluated in the ED. She was initially hypotensive on arrival in the ER. Workup was done which showed UTI. She is started on IV hydration, IV antibiotics and being for medical management, evaluation and further work up. Review of Systems Review of Systems: 14 systems were reviewed with pertinent positives and negatives per HPI. Except as documented in the HPI/progress notes, all other systems were reviewed and are negative. All systems reviewed & are unremarkable except as noted in HPI and below PMFSH Past Medical History Medical History Atrial fibrillation Chronic GERD Chronic obstructive pulmonary disease Chronic pain syndrome Chronic respiratory failure with hypoxia Deep venous thrombosis Depression with anxiety Hiatal hernia Obstructive sleep apnea Surgical History Surgical History History of bladder repair surgery History of breast surgery History of cataract extraction History of cholecystectomy History of colonoscopy History of esophagogastroduodenoscopy History of foot surgery History of fusion of cervical spine History of hernia repair History of hysterectomy History of spinal surgery History of tonsillectomy Family History Family History Father Bladder cancer Mother Hypertension Depression Sibling Asthma Hypertension Depression Grandparent Hypertension Heart disease Cerebrovascular accident Grandparent Alcoholism Lung cancer Social History Social History Social History: Surrogate medical decision maker: Tyrone Bullard, karissa. Code status: Full code. Smoking packs per day: 1 Smoking cigarettes per day: 20.0 Years smoked: 38 Smoking pack-years: 38.00 Smoking status: Former smoker Tobacco type: cigarettes Second hand tobacco smoke exposure: No Alcohol intake: never Drinks per week: 1 Substance use: never Substance use type: does not use Do You Feel Safe in your Home?: Yes Lack of Transportation: No Lack of Food: Never True Current Housing: I Have Housing Concerned About Future Housing: No Difficulty Paying Gas/Electric Bills: Decline to Answer Difficulty Paying for Meds: Decline to Answer Currently Unemployed: Decline to Answer Education: Associate Degree Difficulty w/ Childcare or Family Care: No Additional living arrangements comments: with 3 children. 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 Spiritual care concerns: No Meds Home Medications and Allergies Home Medications Medication Instructions Recorded Confirmed Type atorvastatin 80 mg tablet 80 mg PO HS 03/04/22 09/17/23 History memantine 5 mg tablet 5 mg PO BID 03/04/22 09/17/23 History pramipexole 0.5 mg tablet (Mirapex) 0.5 mg PO HS 03/07/22 09/17/23 History ferrous sulfate 325 mg (65 mg 325 mg PO Q48H 10/01/22 09/17/23 History iron) tablet pregabalin 100 mg capsule 100 mg PO BID 10/01/22 09/17/23 History albuterol sulfate 2.5 mg/3 mL 2.5 mg inhalation Q8H PRN wheez
[2023-09-18] VITALS (7 sets, daily range): BP systolic 131–189; BP diastolic 70–86; PULSE 81–96; RESP 18–20; TEMP 36.4–36.7; O2SAT 96–98; BMI 31.8
[2023-09-18] MEDS: KCL 20 MEQ/SW 100 ML 100 ML 50 MEQ IVPB (01:35)
[2023-09-18] MEDS: SODIUM CHLORIDE 0.9% IV 1,000 ML 75 ML IV CONT (01:35)
[2023-09-18] MEDS: oxyCODONE/ACETAMINOPHEN (*CRX) 5-325 MG TABLET 1 TABLET PO ×4 (03:41→22:21)
[2023-09-18] MEDS: oxyCODONE HCL (*CRX) 2.5 MG TAB IR PO ×4 (03:42→22:20)
[2023-09-18 04:50] LABS: Basophils Percent Auto 0.4 % (0.2-1.2); Eosinophils Absolute Auto 0.3 K/mm3 (0-0.3); Eosinophils Percent Auto 2.6 % (0-4.4); Hemoglobin 11.1 g/dL (12.0-15.0); Immature Granulocyte Absolute 0.03 K/mm3 (0.00-0.031); Immature Granulocyte Percent A 0.3 % (0-0.5); Lymphocytes Absolute Auto 1.68 K/mm3 (0.9-3.2); Lymphocytes Percent Auto 15.7 % (18.3-44.2); Mean Corpuscular Hemoglobin 28.2 pg (26-34); Mean Corpuscular Volume 93.9 fl (80-100); Monocytes Absolute Auto 0.6 K/mm3 (0.1-0.6); Monocytes Percent Auto 5.5 % (2.6-8.5); Neutrophils Absolute Auto 8.1 K/mm3 (1.3-6.7); Neutrophils Percent Auto 75.5 % (45.5-73.1); Platelet Count Result 177 k/mm3 (150-375); Red Blood Count 3.94 M/mm3 (4.2-5.4); Red Cell Distribution Width 14.3 % (11.5-14.5); White Blood Count 10.7 K/mm3 (4.5-10.0)
[2023-09-18 05:02] LABS: Anion Gap 4 mmol/L (4-12); Blood Urea Nitrogen 17 mg/dL (7-17); Calcium 8.2 mg/dL (8.4-10.2); Carbon Dioxide 31 mmol/L (22-30); Chloride 102 mmol/L (98-107); Estimated Glomerular Filt Rate > 60; Glucose 99 mg/dL (65-110); Magnesium 1.9 mg/dL (1.6-2.3); Phosphorus 3.2 mg/dL (2.5-4.5); Potassium 3.7 mmol/L (3.4-5.0); Sodium 137 mmol/L (137-145)
--- NOTE | 2023-09-18 07:17 | PM.IMPN ---
Progress Note: A&P Assessment and Plan (1) Ground-level fall: Code(s): W18.30XA - Fall on same level, unspecified, initial encounter Status: Acute Assessment and Plan: fall precautions up with assist PT/OT ordered prior (2) UTI (urinary tract infection): Qualifiers: Hematuria presence: without hematuria Urinary tract infection type: acute cystitis Qualified Code(s): N30.00 - Acute cystitis without hematuria Code(s): N39.0 - Urinary tract infection, site not specified Status: Acute Assessment and Plan: Follow-up on urine and blood cultures Patient started on IV Rocephin in the ER which we will continue on the floor Patient was given 1 L of IV hydration in the ER Started patient on gentle IV hydration at 75 cc/hour on the floor Strict input and output monitoring (3) Atrial fibrillation: Code(s): I48.91 - Unspecified atrial fibrillation Status: Acute (4) Chronic pain syndrome: Code(s): G89.4 - Chronic pain syndrome Status: Acute (5) Dehydration: Code(s): E86.0 - Dehydration Status: Acute Assessment and Plan: Patient was given 1 L of IV hydration in the ER Started patient on gentle IV hydration at 75 cc/hour on the floor Strict input and output monitoring (6) Obstructive sleep apnea: Code(s): G47.33 - Obstructive sleep apnea (adult) (pediatric) Status: Acute (7) Chronic obstructive pulmonary disease: Code(s): J44.9 - Chronic obstructive pulmonary disease, unspecified Status: Acute (8) Weakness: Code(s): R53.1 - Weakness Status: Acute Assessment and Plan: pt/ot ordered (9) Debilitated: Code(s): R53.81 - Other malaise Status: Acute (10) Chronic pain: Code(s): G89.29 - Other chronic pain Status: Acute (11) Hyperlipidemia: Code(s): E78.5 - Hyperlipidemia, unspecified Status: Acute Assessment and Plan: continue home statin (12) Intertrigo: Code(s): L30.4 - Erythema intertrigo Status: Acute (13) Chronic anemia: Code(s): D64.9 - Anemia, unspecified Status: Acute (14) Generalized weakness: Code(s): R53.1 - Weakness Status: Acute (15) Restless leg syndrome: Code(s): G25.81 - Restless legs syndrome Status: Acute (16) Chronic GERD: Code(s): K21.9 - Gastro-esophageal reflux disease without esophagitis Status: Chronic (17) Depression with anxiety: Code(s): F41.8 - Other specified anxiety disorders Status: Chronic (18) Hiatal hernia: Code(s): K44.9 - Diaphragmatic hernia without obstruction or gangrene Status: Acute (19) Hypotension: Code(s): I95.9 - Hypotension, unspecified Status: Acute Assessment and Plan: chronic- on home midodrine- will continue Plan Time Spent With Patient Time with patient: 25 - 35 minutes Subjective Date/time seen: 09/18/23 07:17 Interval history: 88 y.o female with pmh afib, gerd, COPD, DVT, DEMETRIO, anderson admitted from an assisted living facility for a ground level fall. She went to see her family in [place] in 1st week of August, fell down there and had left leg knee hematoma which is slowly improving. She was admitted in our facility 3 weeks ago with gastroenteritis, treated with antibiotics and released in stable condition. She was brought back again to the ER today for evaluation after a ground level fall at assisted living facility. She was feeling weak and tired and unable to ambulate with her walker which she uses at baseline. She was seen and evaluated in the ED. She was initially hypotensive on arrival in the ER. Workup showed UTI. She is started on IV hydration, IV antibiotics and being for medical management, evaluation and further work up. 09/17- pt is seen and examined at the bedside. she reports multiple bladder surgeries and due to frequent infections- she was on low dose of micro
[2023-09-18] MEDS: PREGABALIN (*CRX) 50 MG CAPSULE 100 MG PO ×2 (09:01→16:20)
[2023-09-18] MEDS: FERROUS SULFATE 325 MG TABLET DR PO (09:01)
[2023-09-18] MEDS: CHOLECALCIFEROL 1,000 UNITS TABLET 1000 UNITS PO (09:01)
[2023-09-18] MEDS: OPTI-GEN TAB 1 TABLET PO (09:01)
[2023-09-18] MEDS: MEMANTINE 5 MG TABLET PO ×2 (09:01→21:05)
[2023-09-18] MEDS: PANTOPRAZOLE 40 MG TABLET PO (09:01)
[2023-09-18] MEDS: MIDODRINE HCL 10 MG TABLET PO ×2 (09:01→21:06)
[2023-09-18] MEDS: ATORVASTATIN 40 MG TABLET 80 MG PO (21:05)
[2023-09-18] MEDS: MELATONIN 3 MG TABLET PO (21:05)
[2023-09-18] MEDS: ARIPiprazole 2 MG TABLET PO (21:05)
[2023-09-18] MEDS: CITALOPRAM HYDROBROMIDE 20 MG TABLET PO (21:05)
[2023-09-18] MEDS: PRAMIPEXOLE 0.5 MG TABLET PO (21:05)
[2023-09-18] MEDS: polyethylene glycoL 3350 17 GM POWD.PACK PO (21:11)
[2023-09-19] VITALS (7 sets, daily range): BP systolic 94–144; BP diastolic 54–83; PULSE 73–74; RESP 18–20; TEMP 36.2–36.4; O2SAT 95–100
[2023-09-19 05:34] LABS: Basophils Percent Auto 0.5 % (0.2-1.2); Eosinophils Absolute Auto 0.4 K/mm3 (0-0.3); Eosinophils Percent Auto 5.5 % (0-4.4); Hematocrit 34.6 % (37.0-47.0); Hemoglobin 10.4 g/dL (12.0-15.0); Immature Granulocyte Absolute 0.03 K/mm3 (0.00-0.031); Immature Granulocyte Percent A 0.4 % (0-0.5); Lymphocytes Absolute Auto 1.76 K/mm3 (0.9-3.2); Lymphocytes Percent Auto 22.2 % (18.3-44.2); Mean Corpuscular HGB Conc 30.1 g/dl (32-36); Mean Corpuscular Hemoglobin 28.4 pg (26-34); Mean Corpuscular Volume 94.5 fl (80-100); Mean Platelet Volume 9.9 fl (7.4-10.4); Monocytes Absolute Auto 0.5 K/mm3 (0.1-0.6); Monocytes Percent Auto 6.8 % (2.6-8.5); Neutrophils Absolute Auto 5.1 K/mm3 (1.3-6.7); Neutrophils Percent Auto 64.6 % (45.5-73.1); Platelet Count Result 157 k/mm3 (150-375); Red Blood Count 3.66 M/mm3 (4.2-5.4); Red Cell Distribution Width 14.2 % (11.5-14.5); White Blood Count 7.9 K/mm3 (4.5-10.0)
[2023-09-19 05:46] LABS: Anion Gap 1 mmol/L (4-12); Blood Urea Nitrogen 17 mg/dL (7-17); Calcium 8.5 mg/dL (8.4-10.2); Carbon Dioxide 34 mmol/L (22-30); Chloride 104 mmol/L (98-107); Estimated Glomerular Filt Rate > 60; Glucose 96 mg/dL (65-110); Potassium 3.6 mmol/L (3.4-5.0); Sodium 139 mmol/L (137-145)
[2023-09-19] MEDS: oxyCODONE HCL (*CRX) 2.5 MG TAB IR PO ×3 (06:36→23:24)
[2023-09-19] MEDS: oxyCODONE/ACETAMINOPHEN (*CRX) 5-325 MG TABLET 1 TABLET PO ×3 (06:37→23:24)
--- NOTE | 2023-09-19 07:34 | P.PNIM_ITS ---
Progress Note: A&P Assessment and Plan (1) Ground-level fall: Code(s): W18.30XA - Fall on same level, unspecified, initial encounter Status: Acute Assessment and Plan: fall precautions up with assist PT/OT ordered prior (2) UTI (urinary tract infection): Qualifiers: Hematuria presence: without hematuria Urinary tract infection type: acute cystitis Qualified Code(s): N30.00 - Acute cystitis without hematuria Code(s): N39.0 - Urinary tract infection, site not specified Status: Acute Assessment and Plan: Follow-up on urine and blood cultures- Blood cultures- no growth, urine culture- gram negative bacilli Patient started on IV Rocephin - will continue as appropriate antibiotic based on sensitivities Patient was given 1 L of IV hydration in the ER Started patient on gentle IV hydration at 75 cc/hour on the floor- stopped Strict input and output monitoring (3) Atrial fibrillation: Code(s): I48.91 - Unspecified atrial fibrillation Status: Acute (4) Chronic pain syndrome: Code(s): G89.4 - Chronic pain syndrome Status: Acute (5) Dehydration: Code(s): E86.0 - Dehydration Status: Acute Assessment and Plan: Patient was given 1 L of IV hydration in the ER Started patient on gentle IV hydration at 75 cc/hour on the floor-stopped now Strict input and output monitoring (6) Obstructive sleep apnea: Code(s): G47.33 - Obstructive sleep apnea (adult) (pediatric) Status: Acute Assessment and Plan: have not been on cpap in years . will defer to outpt f/u- knows will need to f/u (7) Chronic obstructive pulmonary disease: Code(s): J44.9 - Chronic obstructive pulmonary disease, unspecified Status: Acute (8) Weakness: Code(s): R53.1 - Weakness Status: Acute Assessment and Plan: pt/ot ordered (9) Debilitated: Code(s): R53.81 - Other malaise Status: Acute (10) Chronic pain: Code(s): G89.29 - Other chronic pain Status: Acute (11) Hyperlipidemia: Code(s): E78.5 - Hyperlipidemia, unspecified Status: Acute Assessment and Plan: continue home statin (12) Intertrigo: Code(s): L30.4 - Erythema intertrigo Status: Acute (13) Chronic anemia: Code(s): D64.9 - Anemia, unspecified Status: Acute (14) Generalized weakness: Code(s): R53.1 - Weakness Status: Acute (15) Restless leg syndrome: Code(s): G25.81 - Restless legs syndrome Status: Acute (16) Chronic GERD: Code(s): K21.9 - Gastro-esophageal reflux disease without esophagitis Status: Chronic Assessment and Plan: continue home pantoprazole (17) Depression with anxiety: Code(s): F41.8 - Other specified anxiety disorders Status: Chronic (18) Hiatal hernia: Code(s): K44.9 - Diaphragmatic hernia without obstruction or gangrene Status: Acute (19) Hypotension: Code(s): I95.9 - Hypotension, unspecified Status: Acute Assessment and Plan: chronic- on home midodrine- will continue Plan Time Spent With Patient Time with patient: 25 - 35 minutes Subjective Date/time seen: 09/19/23 07:34 Interval history: 88 y.o female with pmh afib, gerd, COPD, DVT, DEMETRIO, anderson admitted from an assisted living facility for a ground level fall. Note reviewed and retrieved from ed/h/p: She went to see her family in [place] in
[2023-09-19] MEDS: FLUTICASONE/UMECLIDIN/VILANTER 100-62.5-25 MCG ELLIPTA 1 PUFF INHALATION (07:45)
[2023-09-19] MEDS: CHOLECALCIFEROL 1,000 UNITS TABLET 1000 UNITS PO (09:37)
[2023-09-19] MEDS: ENOXAPARIN 40 MG/0.4 ML SYRINGE SUB-Q (09:38)
[2023-09-19] MEDS: MEMANTINE 5 MG TABLET PO ×2 (09:38→20:33)
[2023-09-19] MEDS: PANTOPRAZOLE 40 MG TABLET PO (09:39)
[2023-09-19] MEDS: PREGABALIN (*CRX) 50 MG CAPSULE 100 MG PO ×2 (09:39→17:56)
[2023-09-19] MEDS: OPTI-GEN TAB 1 TABLET PO (09:46)
[2023-09-19] MEDS: MIDODRINE HCL 10 MG TABLET PO (20:32)
[2023-09-19] MEDS: MELATONIN 3 MG TABLET PO (20:33)
[2023-09-19] MEDS: ATORVASTATIN 40 MG TABLET 80 MG PO (20:33)
[2023-09-19] MEDS: ARIPiprazole 2 MG TABLET PO (20:33)
[2023-09-19] MEDS: CITALOPRAM HYDROBROMIDE 20 MG TABLET PO (20:33)
[2023-09-19] MEDS: PRAMIPEXOLE 0.5 MG TABLET PO (20:34)
[2023-09-20 04:33] VITALS: BP 120/64; PULSE 101; RESP 20; TEMP 36.4; O2SAT 92
[2023-09-20 05:53] LABS: Anion Gap 2 mmol/L (4-12); Blood Urea Nitrogen 15 mg/dL (7-17); Calcium 8.7 mg/dL (8.4-10.2); Carbon Dioxide 35 mmol/L (22-30); Chloride 101 mmol/L (98-107); Estimated Glomerular Filt Rate > 60; Glucose 95 mg/dL (65-110); Potassium 3.9 mmol/L (3.4-5.0); Sodium 138 mmol/L (137-145)
[2023-09-20] MEDS: oxyCODONE HCL (*CRX) 2.5 MG TAB IR PO ×2 (05:58→16:54)
[2023-09-20] MEDS: oxyCODONE/ACETAMINOPHEN (*CRX) 5-325 MG TABLET 1 TABLET PO ×2 (05:58→16:54)
[2023-09-20 07:54] VITALS: O2SAT 94
[2023-09-20] MEDS: FLUTICASONE/UMECLIDIN/VILANTER 100-62.5-25 MCG ELLIPTA 1 PUFF INHALATION (07:54)
--- NOTE | 2023-09-20 08:01 | P.PNIM_ITS ---
Progress Note: A&P Assessment and Plan (1) Ground-level fall: Code(s): W18.30XA - Fall on same level, unspecified, initial encounter Status: Acute Assessment and Plan: fall precautions up with assist continue working with PT/OT (2) UTI (urinary tract infection): Qualifiers: Hematuria presence: without hematuria Urinary tract infection type: acute cystitis Qualified Code(s): N30.00 - Acute cystitis without hematuria Code(s): N39.0 - Urinary tract infection, site not specified Status: Acute Assessment and Plan: Follow-up on urine and blood cultures- Blood cultures- no growth, urine culture- gram negative bacilli Patient started on IV Rocephin - will continue as appropriate antibiotic based on sensitivities Patient was given 1 L of IV hydration in the ER Started patient on gentle IV hydration at 75 cc/hour on the floor- stopped Strict input and output monitoring (3) Atrial fibrillation: Code(s): I48.91 - Unspecified atrial fibrillation Status: Acute (4) Chronic pain syndrome: Code(s): G89.4 - Chronic pain syndrome Status: Acute (5) Dehydration: Code(s): E86.0 - Dehydration Status: Acute Assessment and Plan: Patient was given 1 L of IV hydration in the ER Started patient on gentle IV hydration at 75 cc/hour on the floor-stopped now Strict input and output monitoring (6) Obstructive sleep apnea: Code(s): G47.33 - Obstructive sleep apnea (adult) (pediatric) Status: Acute Assessment and Plan: have not been on cpap in years . will defer to outpt f/u- knows will need to f/u (7) Chronic obstructive pulmonary disease: Code(s): J44.9 - Chronic obstructive pulmonary disease, unspecified Status: Acute (8) Weakness: Code(s): R53.1 - Weakness Status: Acute Assessment and Plan: pt/ot ordered (9) Debilitated: Code(s): R53.81 - Other malaise Status: Acute (10) Chronic pain: Code(s): G89.29 - Other chronic pain Status: Acute (11) Hyperlipidemia: Code(s): E78.5 - Hyperlipidemia, unspecified Status: Acute Assessment and Plan: continue home statin (12) Intertrigo: Code(s): L30.4 - Erythema intertrigo Status: Acute (13) Chronic anemia: Code(s): D64.9 - Anemia, unspecified Status: Acute (14) Generalized weakness: Code(s): R53.1 - Weakness Status: Acute (15) Restless leg syndrome: Code(s): G25.81 - Restless legs syndrome Status: Acute (16) Chronic GERD: Code(s): K21.9 - Gastro-esophageal reflux disease without esophagitis Status: Chronic Assessment and Plan: continue home pantoprazole (17) Depression with anxiety: Code(s): F41.8 - Other specified anxiety disorders Status: Chronic (18) Hiatal hernia: Code(s): K44.9 - Diaphragmatic hernia without obstruction or gangrene Status: Acute (19) Hypotension: Code(s): I95.9 - Hypotension, unspecified Status: Acute Assessment and Plan: chronic- on home midodrine- will continue Plan Time Spent With Patient Time with patient: 15 - 25 minutes Subjective Date/time seen: 09/20/23 08:01 Interval history: 88 y.o female with pmh afib, gerd, COPD, DVT, DEMETRIO, anderson admitted from an assisted living facility for a ground level fall. Note reviewed and retrieved from ed/h/p: [place] family in [place]
[2023-09-20 08:48] VITALS: O2SAT 94
[2023-09-20] MEDS: ENOXAPARIN 40 MG/0.4 ML SYRINGE SUB-Q (08:56)
[2023-09-20] MEDS: OPTI-GEN TAB 1 TABLET PO (08:57)
[2023-09-20] MEDS: PREGABALIN (*CRX) 50 MG CAPSULE 100 MG PO ×2 (08:57→18:00)
[2023-09-20] MEDS: FERROUS SULFATE 325 MG TABLET DR PO (08:57)
[2023-09-20] MEDS: PANTOPRAZOLE 40 MG TABLET PO (08:57)
[2023-09-20] MEDS: CHOLECALCIFEROL 1,000 UNITS TABLET 1000 UNITS PO (08:57)
[2023-09-20] MEDS: MEMANTINE 5 MG TABLET PO ×2 (08:57→21:22)
[2023-09-20] MEDS: MIDODRINE HCL 10 MG TABLET PO ×2 (08:58→21:22)
[2023-09-20 13:48] VITALS: BP 118/70; PULSE 72; RESP 18; TEMP 36.6; O2SAT 97
[2023-09-20 19:51] VITALS: BP 134/74; PULSE 79; RESP 17; TEMP 36.6; O2SAT 96
[2023-09-20 20:00] VITALS: PULSE 79; RESP 17; O2SAT 96
[2023-09-20] MEDS: PRAMIPEXOLE 0.5 MG TABLET PO (21:22)
[2023-09-20] MEDS: ARIPiprazole 2 MG TABLET PO (21:22)
[2023-09-20] MEDS: ATORVASTATIN 40 MG TABLET 80 MG PO (21:22)
[2023-09-20] MEDS: CITALOPRAM HYDROBROMIDE 20 MG TABLET PO (21:22)
[2023-09-20] MEDS: MELATONIN 3 MG TABLET PO (21:22)
[2023-09-21] MEDS: oxyCODONE HCL (*CRX) 2.5 MG TAB IR PO ×3 (01:15→15:15)
[2023-09-21] MEDS: oxyCODONE/ACETAMINOPHEN (*CRX) 5-325 MG TABLET 1 TABLET PO ×3 (01:15→15:15)
[2023-09-21 04:47] VITALS: BP 109/64; PULSE 73; RESP 17; TEMP 36.7; O2SAT 95
[2023-09-21 05:42] LABS: Anion Gap -1 mmol/L (4-12); Blood Urea Nitrogen 16 mg/dL (7-17); Calcium 8.6 mg/dL (8.4-10.2); Carbon Dioxide 38 mmol/L (22-30); Chloride 103 mmol/L (98-107); Estimated Glomerular Filt Rate > 60; Glucose 101 mg/dL (65-110); Potassium 4.3 mmol/L (3.4-5.0); Sodium 140 mmol/L (137-145)
--- NOTE | 2023-09-21 07:27 | PM.IMPN ---
Progress Note: A&P Assessment and Plan (1) Ground-level fall: Code(s): W18.30XA - Fall on same level, unspecified, initial encounter Status: Acute Assessment and Plan: fall precautions up with assist continue working with PT/OT (2) UTI (urinary tract infection): Qualifiers: Hematuria presence: without hematuria Urinary tract infection type: acute cystitis Qualified Code(s): N30.00 - Acute cystitis without hematuria Code(s): N39.0 - Urinary tract infection, site not specified Status: Acute Assessment and Plan: Follow-up on urine and blood cultures- Blood cultures- no growth, urine culture- gram negative bacilli Patient started on IV Rocephin - will continue as appropriate antibiotic based on sensitivities Patient was given 1 L of IV hydration in the ER Started patient on gentle IV hydration at 75 cc/hour on the floor- stopped Strict input and output monitoring (3) Atrial fibrillation: Code(s): I48.91 - Unspecified atrial fibrillation Status: Acute (4) Chronic pain syndrome: Code(s): G89.4 - Chronic pain syndrome Status: Acute (5) Dehydration: Code(s): E86.0 - Dehydration Status: Acute Assessment and Plan: Patient was given 1 L of IV hydration in the ER Started patient on gentle IV hydration at 75 cc/hour on the floor-stopped now Strict input and output monitoring (6) Obstructive sleep apnea: Code(s): G47.33 - Obstructive sleep apnea (adult) (pediatric) Status: Acute Assessment and Plan: have not been on cpap in years . will defer to outpt f/u- knows will need to f/u (7) Chronic obstructive pulmonary disease: Code(s): J44.9 - Chronic obstructive pulmonary disease, unspecified Status: Acute (8) Weakness: Code(s): R53.1 - Weakness Status: Acute Assessment and Plan: pt/ot ordered (9) Debilitated: Code(s): R53.81 - Other malaise Status: Acute (10) Chronic pain: Code(s): G89.29 - Other chronic pain Status: Acute (11) Hyperlipidemia: Code(s): E78.5 - Hyperlipidemia, unspecified Status: Acute Assessment and Plan: continue home statin (12) Intertrigo: Code(s): L30.4 - Erythema intertrigo Status: Acute (13) Chronic anemia: Code(s): D64.9 - Anemia, unspecified Status: Acute (14) Generalized weakness: Code(s): R53.1 - Weakness Status: Acute (15) Restless leg syndrome: Code(s): G25.81 - Restless legs syndrome Status: Acute (16) Chronic GERD: Code(s): K21.9 - Gastro-esophageal reflux disease without esophagitis Status: Chronic Assessment and Plan: continue home pantoprazole (17) Depression with anxiety: Code(s): F41.8 - Other specified anxiety disorders Status: Chronic (18) Hiatal hernia: Code(s): K44.9 - Diaphragmatic hernia without obstruction or gangrene Status: Acute (19) Hypotension: Code(s): I95.9 - Hypotension, unspecified Status: Acute Assessment and Plan: chronic- on home midodrine- will continue Plan Time Spent With Patient Time with patient: 25 - 35 minutes Subjective Date/time seen: 09/21/23 07:27 Interval history: 88 y.o female with pmh afib, gerd, COPD, DVT, DEMETRIO, anderson admitted from an assisted living facility for a ground level fall. Note reviewed and retrieved from ed/h/p: She went to see her family in [place] in 1st week of August, fell down there and had left leg knee hematoma which is slowly improving. She was admitted in our facility 3 weeks ago with gastroenteritis, treated with antibiotics and released in stable condition. She was brought back again to the ER today for evaluation after a ground level fall at assisted living facility. She was feeling weak and tired and unable to ambulate with her walker which she uses at baseline. She was seen and evaluated in the ED. She wa
[2023-09-21 07:45] VITALS: O2SAT 94
[2023-09-21] MEDS: FLUTICASONE/UMECLIDIN/VILANTER 100-62.5-25 MCG ELLIPTA 1 PUFF INHALATION (07:45)
--- NOTE | 2023-09-21 08:35 | PCPTNOTE ---
Attempted to see patient for PT, however patient was eating breakfast.
[2023-09-21] MEDS: MIDODRINE HCL 10 MG TABLET PO (08:36)
[2023-09-21] MEDS: ENOXAPARIN 40 MG/0.4 ML SYRINGE SUB-Q (08:36)
[2023-09-21] MEDS: PREGABALIN (*CRX) 50 MG CAPSULE 100 MG PO ×2 (08:36→16:26)
[2023-09-21] MEDS: CHOLECALCIFEROL 1,000 UNITS TABLET 1000 UNITS PO (08:36)
[2023-09-21] MEDS: MEMANTINE 5 MG TABLET PO (08:36)
[2023-09-21] MEDS: OPTI-GEN TAB 1 TABLET PO (08:37)
[2023-09-21] MEDS: PANTOPRAZOLE 40 MG TABLET PO (08:37)
[2023-09-21 08:39] VITALS: RESP 18; O2SAT 94
[2023-09-21 09:16] LABS: Hematocrit 36.7 % (37.0-47.0); Hemoglobin 10.6 g/dL (12.0-15.0); Mean Corpuscular HGB Conc 28.9 g/dl (32-36); Mean Corpuscular Hemoglobin 28.2 pg (26-34); Mean Corpuscular Volume 97.6 fl (80-100); Mean Platelet Volume 10.2 fl (7.4-10.4); Platelet Count Result 199 k/mm3 (150-375); Red Blood Count 3.76 M/mm3 (4.2-5.4); Red Cell Distribution Width 14.1 % (11.5-14.5); White Blood Count 5.9 K/mm3 (4.5-10.0)
[2023-09-21 14:00] VITALS: BP 116/62; PULSE 70; RESP 16; TEMP 36.6; O2SAT 96
--- NOTE | 2023-09-21 14:38 | PM.DS ---
DS: Admitting Diagnosis Discharge Date 09/20 Admitting Diagnosis fall, UTI DS: Discharge Diagnosis Discharge Diagnosis (1) Ground-level fall: Code(s): W18.30XA - Fall on same level, unspecified, initial encounter Status: Acute Assessment and Plan: fall precautions up with assist continue working with PT/OT (2) UTI (urinary tract infection): Qualifiers: Hematuria presence: without hematuria Urinary tract infection type: acute cystitis Qualified Code(s): N30.00 - Acute cystitis without hematuria Code(s): N39.0 - Urinary tract infection, site not specified Status: Acute Assessment and Plan: Follow-up on urine and blood cultures- Blood cultures- no growth, urine culture- gram negative bacilli Patient started on IV Rocephin - will continue as appropriate antibiotic based on sensitivities Patient was given 1 L of IV hydration in the ER Started patient on gentle IV hydration at 75 cc/hour on the floor- stopped Strict input and output monitoring (3) Atrial fibrillation: Code(s): I48.91 - Unspecified atrial fibrillation Status: Acute (4) Chronic pain syndrome: Code(s): G89.4 - Chronic pain syndrome Status: Acute (5) Dehydration: Code(s): E86.0 - Dehydration Status: Acute Assessment and Plan: Patient was given 1 L of IV hydration in the ER Started patient on gentle IV hydration at 75 cc/hour on the floor-stopped now Strict input and output monitoring (6) Obstructive sleep apnea: Code(s): G47.33 - Obstructive sleep apnea (adult) (pediatric) Status: Acute Assessment and Plan: have not been on cpap in years . will defer to outpt f/u- knows will need to f/u (7) Chronic obstructive pulmonary disease: Code(s): J44.9 - Chronic obstructive pulmonary disease, unspecified Status: Acute (8) Weakness: Code(s): R53.1 - Weakness Status: Acute Assessment and Plan: pt/ot ordered (9) Debilitated: Code(s): R53.81 - Other malaise Status: Acute (10) Chronic pain: Code(s): G89.29 - Other chronic pain Status: Acute (11) Hyperlipidemia: Code(s): E78.5 - Hyperlipidemia, unspecified Status: Acute Assessment and Plan: continue home statin (12) Intertrigo: Code(s): L30.4 - Erythema intertrigo Status: Acute (13) Chronic anemia: Code(s): D64.9 - Anemia, unspecified Status: Acute (14) Generalized weakness: Code(s): R53.1 - Weakness Status: Acute (15) Restless leg syndrome: Code(s): G25.81 - Restless legs syndrome Status: Acute (16) Chronic GERD: Code(s): K21.9 - Gastro-esophageal reflux disease without esophagitis Status: Chronic Assessment and Plan: continue home pantoprazole (17) Depression with anxiety: Code(s): F41.8 - Other specified anxiety disorders Status: Chronic (18) Hiatal hernia: Code(s): K44.9 - Diaphragmatic hernia without obstruction or gangrene Status: Acute (19) Hypotension: Code(s): I95.9 - Hypotension, unspecified Status: Acute Assessment and Plan: chronic- on home midodrine- will continue Plan Final Dx: ground level fall, UTI DS: Summary Hospital Course Hospital Course: 88 y.o female with pmh afib, gerd, COPD, DVT, DEMETRIO, anderson admitted from an assisted living facility for a ground level fall. Note reviewed and retrieved from ed/h/p: She went to see her family in [place] in 1st week of August, fell down there and had left leg knee hematoma which is slowly improving. She was admitted in our facility 3 weeks ago with gastroenteritis, treated with antibiotics and released in stable condition. She was brought back again to the ER today for evaluation after a ground level fall at assisted living facility. She was feeling weak and tired and unable to ambulate with her walker which she uses at baseline. She w
== END 2023-09-21 17:25 | disposition swing bed (61) | DRG 690 ==
LOC: ANHED 12:58 → ANH2MED 14:26
PROVIDERS: Family Medicine; Admitting Provider Internal Medicine; Emergency Provider Physician Assistant; PCP Physician Assistant; Visit Provider Nurse Practitioner
DX: N39.0 Urinary tract infection, site not specified (principal); I48.20 Chronic atrial fibrillation, unspecified; J96.11 Chronic respiratory failure with hypoxia; I95.9 Hypotension, unspecified; I48.0 Paroxysmal atrial fibrillation; E86.0 Dehydration; L89.152 Pressure ulcer of sacral region, stage 2; J44.9 Chronic obstructive pulmonary disease, unspecified; E78.5 Hyperlipidemia, unspecified; K44.9 Diaphragmatic hernia without obstruction or gangrene; L30.4 Erythema intertrigo; K21.9 Gastro-esophageal reflux disease without esophagitis; G89.4 Chronic pain syndrome; G47.33 Obstructive sleep apnea (adult) (pediatric); R29.6 Repeated falls; R26.9 Unspecified abnormalities of gait and mobility; R53.81 Other malaise; G25.81 Restless legs syndrome; F32.A Depression, unspecified; F41.9 Anxiety disorder, unspecified; S80.02XD Contusion of left knee, subsequent encounter; W19.XXXD Unspecified fall, subsequent encounter; W18.30XA Fall on same level, unspecified, initial encounter; Z96.649 Presence of unspecified artificial hip joint; Z99.81 Dependence on supplemental oxygen; Z87.891 Personal history of nicotine dependence; Z86.718 Personal history of other venous thrombosis and embolism
CPT/HCPCS: 36415; 70450; 71045; 72125; 72131; 72192; 80048; 80053; 81001; 83540; 83735; 84100; 84484; 85025; 85027; 87040; 87077; 87086; 87088; 87186; 93005; 94640; 97110; 97116; 97161; 97165; 97530; 97535; 99285; A9270; G0378; J0696; J1650; J3480; J7030

== ENCOUNTER 2023-09-21 16:40 | Inpatient (IN) | payer MEDICARE, SELFPAY ==
[2023-09-21 18:00] VITALS: O2SAT 95
[2023-09-21 18:10] VITALS: BP 130/77; PULSE 70; RESP 16; TEMP 36.4; O2SAT 96; BMI 31.8
--- NOTE | 2023-09-21 18:10 | ADMGEN ---
This patient, Jazmin Bullard, was admitted to 2nd Floor Room 209-1. Patient/family oriented to hospital policies and general routines including ID bracelet, bed and alarms, visiting hours, pain management, procedures, bathroom and other care routines, personal items, smoking policy, room service/diet, and visiting hours. Information on how to activate the Rapid Response Team has been discussed. Patient/Family are encouraged to report perceived risks to care and to ask questions if they do not understand what they are told or what they should do.
[2023-09-21] MEDS: CITALOPRAM HYDROBROMIDE 20 MG TABLET PO (21:30)
[2023-09-21] MEDS: ATORVASTATIN 40 MG TABLET 80 MG PO (21:30)
[2023-09-21] MEDS: ARIPiprazole 2 MG TABLET PO (21:30)
[2023-09-21] MEDS: SULFAMETHOXAZOLE/TRIMETHOPRIM 800/160 MG DS TABLET 1 TAB PO (21:31)
[2023-09-21] MEDS: MELATONIN 3 MG TABLET PO (21:31)
[2023-09-21] MEDS: PREGABALIN (*CRX) 100 MG CAPSULE PO (21:31)
[2023-09-21] MEDS: PRAMIPEXOLE 0.5 MG TABLET PO (21:32)
[2023-09-22] VITALS: BP 96/51; PULSE 77; RESP 16; TEMP 36.7; O2SAT 94
[2023-09-22] MEDS: oxyCODONE HCL (*CRX) 2.5 MG TAB IR PO ×3 (01:54→21:57)
[2023-09-22] MEDS: oxyCODONE/ACETAMINOPHEN (*CRX) 5-325 MG TABLET 1 TABLET PO ×4 (02:03→21:59)
[2023-09-22 05:30] VITALS: O2SAT 97
--- NOTE | 2023-09-22 07:40 | PM.IMHP ---
H&P: HPI History of Present Illness Date/Time: 09/22/23 07:40 Chief Complaint: weakness, Fall Narrative: Patient is here for swing This is a pleasant 88 year old female that has a history of falls. Patient fell a month or so ago and was diagnosised with a hematoma of the right hip. Patient has since had another fall with no fractures but she has continued to remain weak and is requiring some therapy. Patient was seen at [facility] where they identified a U[facility] she is being treated for. patient use a rollator at home or assistive living. According to patient when she had her hip repaired it made one leg shorter than the other and that is part of her issues with falls beside this chronic pain that she has had for years. She is seen and treated by the pain clinic. I initally started to change her pain medication. After a very long conversation with the patient and the understanding that when changed it causes her a lot of grief as the pain clinic will only order what is prescribed and recommended by them I will continue her same regime . At This time I will continue patient home medication and she will work with therapy. Patient has right shoulder pain and this is chronic for her. Review of Systems Review of Systems: hip and shoulder pain All systems reviewed & are unremarkable except as noted in HPI and below PMFSH Past Medical History Medical History Atrial fibrillation Chronic GERD Chronic obstructive pulmonary disease Chronic pain syndrome Chronic respiratory failure with hypoxia Deep venous thrombosis Depression with anxiety Hiatal hernia Obstructive sleep apnea Surgical History Surgical History History of bladder repair surgery History of breast surgery History of cataract extraction History of cholecystectomy History of colonoscopy History of esophagogastroduodenoscopy History of foot surgery History of fusion of cervical spine History of hernia repair History of hysterectomy History of spinal surgery History of tonsillectomy Family History Family History Father Bladder cancer Mother Hypertension Depression Sibling Asthma Hypertension Depression Grandparent Hypertension Heart disease Cerebrovascular accident Grandparent Alcoholism Lung cancer Social History Social History Social History: Surrogate medical decision maker: Tyrone Bullard, son. Code status: Full code. Smoking packs per day: 1 Smoking cigarettes per day: 20.0 Years smoked: 35 Smoking pack-years: 35.00 Smoking status: Former smoker Tobacco type: cigarettes Second hand tobacco smoke exposure: No Alcohol intake: never Drinks per week: 1 Substance use: never Substance use type: does not use Do You Feel Safe in your Home?: Yes Lack of Transportation: No Lack of Food: Never True Current Housing: I Have Housing Concerned About Future Housing: No Difficulty Paying Gas/Electric Bills: No Difficulty Paying for Meds: No Currently Unemployed: No Education: High School Diploma/GED Difficulty w/ Childcare or Family Care: No Additional living arrangements comments: with 3 children. 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 Spiritual care concerns: No Meds Home Medications and Allergies Home Medications Medication Instructions Recorded Confirmed Type atorvastatin 80 mg tablet 80 mg PO HS 03/04/22 09/21/23 History memantine 5 mg tablet 5 mg PO BID 03/04/22 09/21/23 History pramipexole 0.5 mg tablet (Mirapex) 0.5 mg PO HS 03/07/22 09/21/23 History ferrous sulfate 325 mg (65 mg 325 mg PO Q48H 10/01/22 09/21/23 History iron) tablet pregabalin 100 mg capsule 100 mg PO BID 10/01/22 09/21/23 History albuterol sulfate
[2023-09-22 07:55] VITALS: BP 148/73; PULSE 86; RESP 16; TEMP 36.7; O2SAT 91
[2023-09-22] MEDS: CHOLECALCIFEROL 1,000 UNITS TABLET 1000 UNITS PO (09:26)
[2023-09-22] MEDS: MEMANTINE 5 MG TABLET PO ×2 (09:26→16:18)
[2023-09-22] MEDS: PANTOPRAZOLE 40 MG TABLET PO (09:27)
[2023-09-22] MEDS: FUROSEMIDE 20 MG TABLET PO (09:27)
[2023-09-22] MEDS: PREGABALIN (*CRX) 100 MG CAPSULE PO ×2 (09:27→21:57)
[2023-09-22] MEDS: OPTI-GEN TAB 1 TABLET PO (09:27)
[2023-09-22] MEDS: MIDODRINE HCL 2.5 MG TABLET 10 MG PO ×2 (09:27→16:18)
[2023-09-22] MEDS: SULFAMETHOXAZOLE/TRIMETHOPRIM 800/160 MG DS TABLET 1 TAB PO ×2 (09:27→21:57)
[2023-09-22] MEDS: DOCUSATE SODIUM 100 MG CAPSULE PO ×2 (09:27→16:19)
[2023-09-22] MEDS: FERROUS SULFATE 325 MG TABLET DR PO (09:27)
[2023-09-22] MEDS: FLUTICASONE/UMECLIDIN/VILANTER 100-62.5-25 MCG ELLIPTA 1 PUFF INHALATION (09:28)
[2023-09-22 16:35] VITALS: BP 130/83; PULSE 66; RESP 16; TEMP 36.2; O2SAT 100
[2023-09-22] MEDS: PRAMIPEXOLE 0.25 MG TABLET 0.5 MG PO (21:57)
[2023-09-22] MEDS: ATORVASTATIN 40 MG TABLET 80 MG PO (21:57)
[2023-09-22] MEDS: CITALOPRAM HYDROBROMIDE 20 MG TABLET PO (21:57)
[2023-09-22] MEDS: ARIPiprazole 2 MG TABLET PO (21:57)
[2023-09-22] MEDS: MELATONIN 3 MG TABLET PO (21:57)
[2023-09-22 23:17] VITALS: BP 120/78; PULSE 62; RESP 19; TEMP 36.1; O2SAT 97
[2023-09-23 05:30] VITALS: O2SAT 97
[2023-09-23] MEDS: oxyCODONE/ACETAMINOPHEN (*CRX) 5-325 MG TABLET 1 TABLET PO ×3 (06:24→22:34)
[2023-09-23 08:00] VITALS: BP 127/69; PULSE 95; RESP 18; TEMP 36.1; O2SAT 93
[2023-09-23] MEDS: FLUTICASONE/UMECLIDIN/VILANTER 100-62.5-25 MCG ELLIPTA 1 PUFF INHALATION (09:30)
[2023-09-23] MEDS: PREGABALIN (*CRX) 100 MG CAPSULE PO ×2 (09:31→21:17)
[2023-09-23] MEDS: CHOLECALCIFEROL 1,000 UNITS TABLET 1000 UNITS PO (09:31)
[2023-09-23] MEDS: OPTI-GEN TAB 1 TABLET PO (09:31)
[2023-09-23] MEDS: MIDODRINE HCL 2.5 MG TABLET 10 MG PO ×2 (09:32→17:25)
[2023-09-23] MEDS: SULFAMETHOXAZOLE/TRIMETHOPRIM 800/160 MG DS TABLET 1 TAB PO ×2 (09:33→21:14)
[2023-09-23] MEDS: PANTOPRAZOLE 40 MG TABLET PO (09:33)
[2023-09-23] MEDS: MEMANTINE 5 MG TABLET PO ×2 (09:33→17:25)
[2023-09-23] MEDS: FUROSEMIDE 20 MG TABLET PO (09:33)
[2023-09-23] MEDS: DOCUSATE SODIUM 100 MG CAPSULE PO ×2 (09:33→17:25)
[2023-09-23 16:00] VITALS: BP 114/82; PULSE 79; RESP 18; TEMP 36.3; O2SAT 97
[2023-09-23] MEDS: ATORVASTATIN 40 MG TABLET 80 MG PO (21:14)
[2023-09-23] MEDS: PRAMIPEXOLE 0.25 MG TABLET 0.5 MG PO (21:15)
[2023-09-23] MEDS: ARIPiprazole 2 MG TABLET PO (21:15)
[2023-09-23] MEDS: MELATONIN 3 MG TABLET PO (21:15)
[2023-09-23] MEDS: CITALOPRAM HYDROBROMIDE 20 MG TABLET PO (21:17)
[2023-09-23] MEDS: oxyCODONE HCL (*CRX) 2.5 MG TAB IR PO (22:37)
--- NOTE | 2023-09-23 23:48 | PC.NURSE ---
Patient alert and oriented. Pleasant and cooperative. Uses call light to make needs know. Feeds self meals. Ambulates with gait belt and wheeled walker with stand by assist. Up in chair for meals. Call light and belongings within reach.
[2023-09-24] VITALS: BP 126/66; PULSE 70; RESP 17; TEMP 36.4; O2SAT 94
[2023-09-24 05:30] VITALS: O2SAT 95
[2023-09-24] MEDS: oxyCODONE HCL (*CRX) 2.5 MG TAB IR PO ×2 (07:38→20:41)
[2023-09-24] MEDS: oxyCODONE/ACETAMINOPHEN (*CRX) 5-325 MG TABLET 1 TABLET PO ×3 (07:39→20:41)
[2023-09-24 08:00] VITALS: BP 158/88; PULSE 88; RESP 18; TEMP 36.6; O2SAT 95
[2023-09-24] MEDS: SULFAMETHOXAZOLE/TRIMETHOPRIM 800/160 MG DS TABLET 1 TAB PO ×2 (10:15→20:40)
[2023-09-24] MEDS: CHOLECALCIFEROL 1,000 UNITS TABLET 1000 UNITS PO (10:15)
[2023-09-24] MEDS: DOCUSATE SODIUM 100 MG CAPSULE PO ×2 (10:15→16:55)
[2023-09-24] MEDS: PREGABALIN (*CRX) 100 MG CAPSULE PO ×2 (10:15→20:40)
[2023-09-24] MEDS: MIDODRINE HCL 2.5 MG TABLET 10 MG PO ×2 (10:16→16:55)
[2023-09-24] MEDS: OPTI-GEN TAB 1 TABLET PO (10:16)
[2023-09-24] MEDS: FERROUS SULFATE 325 MG TABLET DR PO (10:16)
[2023-09-24] MEDS: FUROSEMIDE 20 MG TABLET PO (10:17)
[2023-09-24] MEDS: MEMANTINE 5 MG TABLET PO ×2 (10:17→16:55)
[2023-09-24] MEDS: PANTOPRAZOLE 40 MG TABLET PO (10:17)
[2023-09-24] MEDS: FLUTICASONE/UMECLIDIN/VILANTER 100-62.5-25 MCG ELLIPTA 1 PUFF INHALATION (10:18)
[2023-09-24] MEDS: polyethylene glycoL 3350 17 GM POWD.PACK PO (10:24)
[2023-09-24 16:00] VITALS: BP 128/74; PULSE 64; RESP 18; TEMP 36.3; O2SAT 95
[2023-09-24 20:00] VITALS: PULSE 64; RESP 18; O2SAT 95
[2023-09-24] MEDS: ARIPiprazole 2 MG TABLET PO (20:39)
[2023-09-24] MEDS: ATORVASTATIN 40 MG TABLET 80 MG PO (20:39)
[2023-09-24] MEDS: CITALOPRAM HYDROBROMIDE 20 MG TABLET PO (20:40)
[2023-09-24] MEDS: PRAMIPEXOLE 0.25 MG TABLET 0.5 MG PO (20:40)
[2023-09-24] MEDS: MELATONIN 3 MG TABLET PO (20:40)
[2023-09-24 23:59] VITALS: BP 159/69; PULSE 66; RESP 17; TEMP 36.5; O2SAT 95
[2023-09-25] MEDS: oxyCODONE/ACETAMINOPHEN (*CRX) 5-325 MG TABLET 1 TABLET PO ×4 (03:20→22:01)
[2023-09-25] MEDS: oxyCODONE HCL (*CRX) 2.5 MG TAB IR PO ×4 (03:21→22:00)
[2023-09-25 05:35] VITALS: O2SAT 95
[2023-09-25 08:00] VITALS: BP 148/84; PULSE 66; RESP 18; TEMP 36.2; O2SAT 97
[2023-09-25] MEDS: FLUTICASONE/UMECLIDIN/VILANTER 100-62.5-25 MCG ELLIPTA 1 PUFF INHALATION (09:16)
[2023-09-25] MEDS: PREGABALIN (*CRX) 100 MG CAPSULE PO ×2 (09:18→21:56)
[2023-09-25] MEDS: FUROSEMIDE 20 MG TABLET PO (09:18)
[2023-09-25] MEDS: OPTI-GEN TAB 1 TABLET PO (09:18)
[2023-09-25] MEDS: PANTOPRAZOLE 40 MG TABLET PO (09:18)
[2023-09-25] MEDS: DOCUSATE SODIUM 100 MG CAPSULE PO ×2 (09:18→16:59)
[2023-09-25] MEDS: MEMANTINE 5 MG TABLET PO ×2 (09:18→16:58)
[2023-09-25] MEDS: CHOLECALCIFEROL 1,000 UNITS TABLET 1000 UNITS PO (09:18)
[2023-09-25] MEDS: polyethylene glycoL 3350 17 GM POWD.PACK PO (09:23)
[2023-09-25] MEDS: MIDODRINE HCL 2.5 MG TABLET 10 MG PO ×2 (09:24→16:57)
[2023-09-25 16:00] VITALS: BP 122/59; PULSE 67; RESP 18; TEMP 36.3; O2SAT 94
[2023-09-25] MEDS: PRAMIPEXOLE 0.25 MG TABLET 0.5 MG PO (21:56)
[2023-09-25] MEDS: CITALOPRAM HYDROBROMIDE 20 MG TABLET PO (21:58)
[2023-09-25] MEDS: MIRTAZAPINE 7.5 MG TABLET PO (21:58)
[2023-09-25] MEDS: ARIPiprazole 2 MG TABLET PO (21:58)
[2023-09-25] MEDS: ATORVASTATIN 40 MG TABLET 80 MG PO (21:58)
[2023-09-26] VITALS: BP 154/84; PULSE 72; RESP 18; TEMP 36.3; O2SAT 95
[2023-09-26] MEDS: oxyCODONE/ACETAMINOPHEN (*CRX) 5-325 MG TABLET 1 TABLET PO ×3 (03:12→21:32)
[2023-09-26 05:35] VITALS: O2SAT 96
--- NOTE | 2023-09-26 05:35 | PC.NURSE ---
Bj Marie NP called but no answer. Voicemail was full and unable to leave a message.
[2023-09-26 08:00] VITALS: BP 103/65; PULSE 67; RESP 16; TEMP 36.5; O2SAT 98
[2023-09-26] MEDS: FLUTICASONE/UMECLIDIN/VILANTER 100-62.5-25 MCG ELLIPTA 1 PUFF INHALATION (09:30)
[2023-09-26] MEDS: CHOLECALCIFEROL 1,000 UNITS TABLET 1000 UNITS PO (09:47)
[2023-09-26] MEDS: OPTI-GEN TAB 1 TABLET PO (09:47)
[2023-09-26] MEDS: MEMANTINE 5 MG TABLET PO ×2 (09:48→17:57)
[2023-09-26] MEDS: MIDODRINE HCL 2.5 MG TABLET 10 MG PO ×2 (09:48→17:57)
[2023-09-26] MEDS: DOCUSATE SODIUM 100 MG CAPSULE PO ×2 (09:48→17:57)
[2023-09-26] MEDS: FUROSEMIDE 20 MG TABLET PO (09:48)
[2023-09-26] MEDS: PREGABALIN (*CRX) 100 MG CAPSULE PO ×2 (09:48→21:32)
[2023-09-26] MEDS: FERROUS SULFATE 325 MG TABLET DR PO (09:48)
[2023-09-26] MEDS: PANTOPRAZOLE 40 MG TABLET PO (09:48)
[2023-09-26] MEDS: oxyCODONE HCL (*CRX) 2.5 MG TAB IR PO ×2 (15:51→21:33)
[2023-09-26 16:00] VITALS: BP 127/65; PULSE 68; RESP 18; TEMP 36.3; O2SAT 96
[2023-09-26] MEDS: ATORVASTATIN 40 MG TABLET 80 MG PO (21:32)
[2023-09-26] MEDS: PRAMIPEXOLE 0.25 MG TABLET 0.5 MG PO (21:32)
[2023-09-26] MEDS: CITALOPRAM HYDROBROMIDE 20 MG TABLET PO (21:32)
[2023-09-26] MEDS: ARIPiprazole 2 MG TABLET PO (21:32)
[2023-09-26] MEDS: MIRTAZAPINE 7.5 MG TABLET PO (21:32)
[2023-09-27] VITALS: BP 101/53; PULSE 65; RESP 17; TEMP 36.4; O2SAT 92
[2023-09-27 05:36] VITALS: O2SAT 97
[2023-09-27] MEDS: oxyCODONE HCL (*CRX) 2.5 MG TAB IR PO ×3 (06:46→21:44)
[2023-09-27] MEDS: oxyCODONE/ACETAMINOPHEN (*CRX) 5-325 MG TABLET 1 TABLET PO ×3 (06:47→21:44)
[2023-09-27 08:00] VITALS: BP 112/57; PULSE 86; RESP 14; TEMP 36.5; O2SAT 94
[2023-09-27] MEDS: FLUTICASONE/UMECLIDIN/VILANTER 100-62.5-25 MCG ELLIPTA 1 PUFF INHALATION (09:03)
[2023-09-27] MEDS: OPTI-GEN TAB 1 TABLET PO (09:03)
[2023-09-27] MEDS: DOCUSATE SODIUM 100 MG CAPSULE PO ×2 (09:04→16:11)
[2023-09-27] MEDS: MEMANTINE 5 MG TABLET PO ×2 (09:04→16:11)
[2023-09-27] MEDS: PANTOPRAZOLE 40 MG TABLET PO (09:04)
[2023-09-27] MEDS: PREGABALIN (*CRX) 100 MG CAPSULE PO ×2 (09:04→21:45)
[2023-09-27] MEDS: FUROSEMIDE 20 MG TABLET PO (09:04)
[2023-09-27] MEDS: CHOLECALCIFEROL 1,000 UNITS TABLET 1000 UNITS PO (09:04)
[2023-09-27] MEDS: MIDODRINE HCL 2.5 MG TABLET 10 MG PO ×2 (09:04→16:11)
[2023-09-27 16:00] VITALS: BP 154/86; PULSE 74; RESP 17; TEMP 36.5; O2SAT 94
[2023-09-27] MEDS: polyethylene glycoL 3350 17 GM POWD.PACK PO (16:12)
[2023-09-27] MEDS: ARIPiprazole 2 MG TABLET PO (21:44)
[2023-09-27] MEDS: TOLNAFTATE 1% POWDER 45 GM BTL 1 APPLIC TOPICAL (21:44)
[2023-09-27] MEDS: ATORVASTATIN 40 MG TABLET 80 MG PO (21:45)
[2023-09-27] MEDS: CITALOPRAM HYDROBROMIDE 20 MG TABLET PO (21:45)
[2023-09-27] MEDS: MIRTAZAPINE 7.5 MG TABLET PO (21:45)
[2023-09-27] MEDS: PRAMIPEXOLE 0.25 MG TABLET 0.5 MG PO (21:45)
[2023-09-27 23:59] VITALS: BP 131/69; PULSE 68; RESP 19; TEMP 36.4; O2SAT 97
[2023-09-28 05:30] VITALS: O2SAT 94
[2023-09-28] MEDS: oxyCODONE/ACETAMINOPHEN (*CRX) 5-325 MG TABLET 1 TABLET PO ×6 (06:44→22:47)
[2023-09-28] MEDS: oxyCODONE HCL (*CRX) 2.5 MG TAB IR PO ×3 (06:45→19:02)
[2023-09-28 08:00] VITALS: BP 129/63; PULSE 73; RESP 18; TEMP 36.2; O2SAT 95
[2023-09-28] MEDS: FLUTICASONE/UMECLIDIN/VILANTER 100-62.5-25 MCG ELLIPTA 1 PUFF INHALATION (09:02)
[2023-09-28] MEDS: CHOLECALCIFEROL 1,000 UNITS TABLET 1000 UNITS PO (09:03)
[2023-09-28] MEDS: PREGABALIN (*CRX) 100 MG CAPSULE PO ×2 (09:03→20:50)
[2023-09-28] MEDS: PANTOPRAZOLE 40 MG TABLET PO (09:03)
[2023-09-28] MEDS: MEMANTINE 5 MG TABLET PO ×2 (09:03→17:04)
[2023-09-28] MEDS: FERROUS SULFATE 325 MG TABLET DR PO (09:03)
[2023-09-28] MEDS: OPTI-GEN TAB 1 TABLET PO (09:03)
[2023-09-28] MEDS: MIDODRINE HCL 2.5 MG TABLET 10 MG PO ×2 (09:04→17:04)
[2023-09-28] MEDS: TOLNAFTATE 1% POWDER 45 GM BTL 1 APPLIC TOPICAL ×2 (09:04→20:51)
[2023-09-28] MEDS: DOCUSATE SODIUM 100 MG CAPSULE PO ×2 (09:04→17:04)
[2023-09-28] MEDS: FUROSEMIDE 20 MG TABLET PO (09:04)
[2023-09-28] MEDS: LIDOCAINE 5% PATCH 1 PATCH TRANSDERM (09:10)
[2023-09-28 16:00] VITALS: BP 118/58; PULSE 68; RESP 20; TEMP 36.4; O2SAT 97
[2023-09-28] MEDS: ATORVASTATIN 40 MG TABLET 80 MG PO (20:00)
[2023-09-28] MEDS: polyethylene glycoL 3350 17 GM POWD.PACK PO (20:49)
[2023-09-28] MEDS: ARIPiprazole 2 MG TABLET PO (20:50)
[2023-09-28] MEDS: PRAMIPEXOLE 0.25 MG TABLET 0.5 MG PO (20:50)
[2023-09-28] MEDS: MIRTAZAPINE 7.5 MG TABLET PO (20:51)
[2023-09-28] MEDS: CITALOPRAM HYDROBROMIDE 20 MG TABLET PO (20:51)
[2023-09-29] VITALS (8 sets, daily range): BP systolic 102–115; BP diastolic 50–65; PULSE 69–76; RESP 16–18; TEMP 36.2–36.8; O2SAT 94–96
[2023-09-29] MEDS: oxyCODONE HCL (*CRX) 2.5 MG TAB IR PO ×3 (04:54→16:48)
[2023-09-29] MEDS: oxyCODONE/ACETAMINOPHEN (*CRX) 5-325 MG TABLET 1 TABLET PO ×4 (04:55→21:56)
--- NOTE | 2023-09-29 08:08 | PM.IMPN ---
Progress Note: A&P Assessment and Plan (1) Ground-level fall: Code(s): W18.30XA - Fall on same level, unspecified, initial encounter Status: Acute Assessment and Plan: Continue PT and OT care conference scheduled for today (2) UTI (urinary tract infection): Qualifiers: Hematuria presence: without hematuria Urinary tract infection type: acute cystitis Qualified Code(s): N30.00 - Acute cystitis without hematuria Code(s): N39.0 - Urinary tract infection, site not specified Status: Acute Assessment and Plan: finished antibiotic course with Bactrim continue to monitor for symptoms (3) Atrial fibrillation: Code(s): I48.91 - Unspecified atrial fibrillation Status: Acute Assessment and Plan: continue home medications (4) Chronic pain syndrome: Code(s): G89.4 - Chronic pain syndrome Status: Acute Assessment and Plan: continue pain medication prescribed from pain clinic. Time Spent With Patient Time with patient: 15 - 25 minutes Subjective Date/time seen: 09/29/23 08:08 Interval history: This is an 88-year-old female with a past medical history falls and weakness who came to [place] rehab program on 09/22/2023. Patient fell a month ago and was diagnosed with a hematoma of the right hip and her most recent fall was without fracture but continued to remain weak requiring some therapy. She was at [facility] and was found to have a urinary tract infection which was treated with Bactrim. She completed all her antibiotics and now we are just monitoring her symptoms. She is progressing well with therapy. Plan is for a care conference today. Review of Systems Review of Systems: All systems reviewed & are unremarkable except as noted in HPI and below Constitutional: Constitutional: Reports as per HPI and Reports no additional constitutional complaints Eyes: Eyes: Reports as per HPI and Reports no additional eye complaints ENT: Reports system reviewed and no additional complaints, except as documented and Reports as per HPI Cardiovascular: Cardiovascular: Reports as per HPI and Reports no additional cardiovascular complaints Respiratory: Respiratory: Reports as per HPI and Reports no additional respiratory complaints Gastrointestinal: Gastrointestinal: Reports as per HPI and Reports no additional gastrointestinal complaints Genitourinary: Genitourinary: Reports no additional female genitourinary complaints and Reports as per HPI Musculoskeletal: Musculoskeletal: Reports no additional musculoskeletal complaints and Reports as per HPI Integumentary/Breasts: Skin/Breast: Reports system reviewed and no additional complaints, except as docu and Reports as per HPI Neurologic: Reports system reviewed and no additional complaints, except as documented and Reports as per HPI Psychiatric: Psychiatric: Reports no additional psychiatric complaints and Reports as per HPI Exam Narrative: General: In no acute distress, well nourished Head: atraumatic, no encephalopathy Eyes: EOMI, PERRLA, sclera clear ENT: moist mucous membranes, nasal passages clear Neck: supple, no JVD, no adenopathy, trachea midline Cardiac: Normal S1 and S2. No murmur, gallops or friction rubs, peripheral pulses intact. Respiratory: Lungs clear to auscultation, no adventitious lung sounds Gastrointestinal: soft, non-distended, non-tender, normoactive bowel sounds. : voiding without difficulty. Extremities: moves all extremities well, no edema, good ROM, strength 5/5 Skin: clean, dry, intact. No wounds or lesions. Neuro: Alert and oriented x4, cranial nerves intact, no neuro deficits. Psych: normal mood, normal affect, interactive Objective Data Vital Signs Vital Signs: Vital Signs - 24 hr 09/28/23 16:00 09/29/23 00:00 Temperature 97.6 F 97.5 F L Pulse Rate 68 73 Respiratory Rate 20 18 Blood Pressure 118/58 L 106/63 Pulse Oximetry 97 94 Ox
[2023-09-29] MEDS: MIDODRINE HCL 2.5 MG TABLET 10 MG PO ×2 (08:59→16:47)
[2023-09-29] MEDS: FLUTICASONE/UMECLIDIN/VILANTER 100-62.5-25 MCG ELLIPTA 1 PUFF INHALATION (08:59)
[2023-09-29] MEDS: PREGABALIN (*CRX) 100 MG CAPSULE PO ×2 (08:59→20:11)
[2023-09-29] MEDS: OPTI-GEN TAB 1 TABLET PO (08:59)
[2023-09-29] MEDS: DOCUSATE SODIUM 100 MG CAPSULE PO ×2 (08:59→16:48)
[2023-09-29] MEDS: FUROSEMIDE 20 MG TABLET PO (09:00)
[2023-09-29] MEDS: PANTOPRAZOLE 40 MG TABLET PO (09:00)
[2023-09-29] MEDS: MEMANTINE 5 MG TABLET PO ×2 (09:00→16:48)
[2023-09-29] MEDS: CHOLECALCIFEROL 1,000 UNITS TABLET 1000 UNITS PO (09:00)
[2023-09-29 09:39] LABS: Hemoglobin 12.1 g/dL (11.7-13.8); Mean Corpuscular HGB Conc 30.3 g/dL (32-36); Mean Corpuscular Hemoglobin 28.7 pg (27.0-31.0); Platelet Count Result 192 K/mm3 (150-420); Red Blood Count 4.21 M/mm3 (4.20-5.40); Red Cell Distribution Width 13.9 % (11.6-14.4); White Blood Count 9.3 K/mm3 (4.8-10.8)
[2023-09-29 10:04] LABS: Alanine Aminotransferase 35 U/L (14-59); Albumin Level 3.1 g/dL (3.4-5.0); Alkaline Phosphatase 100 U/L (46-116); Anion Gap 6 mmol/L (4-12); Aspartate Amino Transferase 26 U/L (15-37); Bilirubin,Total 0.4 mg/dL (0.00-1.00); Blood Urea Nitrogen 15 mg/dL (7-18); Calcium 8.7 mg/dL (8.5-10.1); Carbon Dioxide 34 mmol/L (21-32); Chloride 102 mmol/L (98-108); Estimated Glomerular Filt Rate 58; Glucose 157 mg/dL (70-99); Osmolality Calculated 297 mOsm/kg (285-295); Potassium 4.1 mmol/L (3.5-5.1); Sodium 142 mmol/L (136-145); Total Protein 6.4 g/dL (6.4-8.2)
[2023-09-29 10:08] LABS: Magnesium 2.2 mg/dL (1.8-2.4)
[2023-09-29] MEDS: TOLNAFTATE 1% POWDER 45 GM BTL 1 APPLIC TOPICAL (20:09)
[2023-09-29] MEDS: ACETAMINOPHEN 325 MG TABLET 650 MG PO (20:11)
[2023-09-29] MEDS: ATORVASTATIN 40 MG TABLET 80 MG PO (20:11)
[2023-09-29] MEDS: PRAMIPEXOLE 0.25 MG TABLET 0.5 MG PO (20:11)
[2023-09-29] MEDS: ARIPiprazole 2 MG TABLET PO (20:11)
[2023-09-29] MEDS: CITALOPRAM HYDROBROMIDE 20 MG TABLET PO (20:11)
[2023-09-29] MEDS: MIRTAZAPINE 15 MG TABLET PO (20:11)
[2023-09-30] MEDS: oxyCODONE/ACETAMINOPHEN (*CRX) 5-325 MG TABLET 1 TABLET PO ×4 (02:27→21:36)
[2023-09-30] MEDS: oxyCODONE HCL (*CRX) 2.5 MG TAB IR PO ×3 (02:27→21:37)
[2023-09-30 05:30] VITALS: O2SAT 96
[2023-09-30 08:00] VITALS: BP 106/53; PULSE 71; RESP 20; TEMP 36.2
[2023-09-30] MEDS: MIDODRINE HCL 2.5 MG TABLET 10 MG PO ×2 (08:30→16:19)
[2023-09-30] MEDS: CHOLECALCIFEROL 1,000 UNITS TABLET 1000 UNITS PO (08:30)
[2023-09-30] MEDS: OPTI-GEN TAB 1 TABLET PO (08:30)
[2023-09-30] MEDS: FUROSEMIDE 20 MG TABLET PO (08:31)
[2023-09-30] MEDS: FLUTICASONE/UMECLIDIN/VILANTER 100-62.5-25 MCG ELLIPTA 1 PUFF INHALATION (08:31)
[2023-09-30] MEDS: PREGABALIN (*CRX) 100 MG CAPSULE PO ×2 (08:31→21:37)
[2023-09-30] MEDS: FERROUS SULFATE 325 MG TABLET DR PO (08:31)
[2023-09-30] MEDS: PANTOPRAZOLE 40 MG TABLET PO (08:31)
[2023-09-30] MEDS: DOCUSATE SODIUM 100 MG CAPSULE PO ×2 (08:31→16:18)
[2023-09-30] MEDS: MEMANTINE 5 MG TABLET PO ×2 (10:24→16:17)
[2023-09-30] MEDS: TOLNAFTATE 1% POWDER 45 GM BTL 1 APPLIC TOPICAL ×2 (10:25→21:39)
[2023-09-30 16:00] VITALS: BP 118/77; PULSE 84; RESP 18; TEMP 36.4; O2SAT 94
[2023-09-30] MEDS: ARIPiprazole 2 MG TABLET PO (21:35)
[2023-09-30] MEDS: CITALOPRAM HYDROBROMIDE 20 MG TABLET PO (21:35)
[2023-09-30] MEDS: PRAMIPEXOLE 0.25 MG TABLET 0.5 MG PO (21:35)
[2023-09-30] MEDS: MIRTAZAPINE 15 MG TABLET PO (21:35)
[2023-09-30] MEDS: ATORVASTATIN 40 MG TABLET 80 MG PO (21:36)
[2023-10-01] VITALS: BP 124/68; PULSE 72; RESP 17; TEMP 36.4; O2SAT 96
[2023-10-01] MEDS: oxyCODONE/ACETAMINOPHEN (*CRX) 5-325 MG TABLET 1 TABLET PO ×2 (06:33→12:25)
[2023-10-01] MEDS: oxyCODONE HCL (*CRX) 2.5 MG TAB IR PO ×2 (06:33→12:25)
[2023-10-01 08:00] VITALS: BP 110/74; PULSE 74; RESP 16; TEMP 36.3; O2SAT 97
[2023-10-01] MEDS: PREGABALIN (*CRX) 100 MG CAPSULE PO (09:52)
[2023-10-01] MEDS: DOCUSATE SODIUM 100 MG CAPSULE PO (09:52)
[2023-10-01] MEDS: FLUTICASONE/UMECLIDIN/VILANTER 100-62.5-25 MCG ELLIPTA 1 PUFF INHALATION (09:53)
[2023-10-01] MEDS: MEMANTINE 5 MG TABLET PO (09:53)
[2023-10-01] MEDS: TOLNAFTATE 1% POWDER 45 GM BTL 1 APPLIC TOPICAL (09:53)
[2023-10-01] MEDS: CHOLECALCIFEROL 1,000 UNITS TABLET 1000 UNITS PO (09:53)
[2023-10-01] MEDS: MIDODRINE HCL 2.5 MG TABLET 10 MG PO (09:53)
[2023-10-01] MEDS: OPTI-GEN TAB 1 TABLET PO (09:53)
[2023-10-01] MEDS: PANTOPRAZOLE 40 MG TABLET PO (09:53)
[2023-10-01] MEDS: FUROSEMIDE 20 MG TABLET PO (09:53)
--- NOTE | 2023-10-01 11:53 | PM.DS ---
DS: Admitting Diagnosis Discharge Date 10/01/2023 Admitting Diagnosis ground level fall, UTI, atrial fibrillation, chronic pain syndrome DS: Discharge Diagnosis Discharge Diagnosis (1) Ground-level fall: Code(s): W18.30XA - Fall on same level, unspecified, initial encounter Status: Acute (2) UTI (urinary tract infection): Qualifiers: Hematuria presence: without hematuria Urinary tract infection type: acute cystitis Qualified Code(s): N30.00 - Acute cystitis without hematuria Code(s): N39.0 - Urinary tract infection, site not specified Status: Acute (3) Atrial fibrillation: Code(s): I48.91 - Unspecified atrial fibrillation Status: Acute (4) Chronic pain syndrome: Code(s): G89.4 - Chronic pain syndrome Status: Acute (5) Chronic respiratory failure with hypoxia: Code(s): J96.11 - Chronic respiratory failure with hypoxia Status: Acute (6) Chronic obstructive pulmonary disease: Code(s): J44.9 - Chronic obstructive pulmonary disease, unspecified Status: Acute (7) Obstructive sleep apnea: Code(s): G47.33 - Obstructive sleep apnea (adult) (pediatric) Status: Acute (8) Weakness: Code(s): R53.1 - Weakness Status: Acute DS: Summary Hospital Course Reason for hospitalization: Swing Bed Hospital Course: This is an 88 year old female patient who was admitted to Swing Bed status for PT/OT after acute care hospitalization for fall with left hip pain/hematoma as well as UTI. Patient completed oral antibiotics and participated with therapy while admitted. Patient reported that her preventative antibiotic has accidently been stopped a few times the last few months causing repeat UTIs. On day of discharge she had mild dyspnea, increased her supplemental oxygen to 3 liters/minute. She also was getting shaky/weaker again like when she has a UTI. Reviewed her chart and her antibiotics had stopped a week ago. Nearly all her prior urine cultures are sensitive to Bactrim. Discussed options and with shared decision making, patient reports she still wants to discharge today. We prescribed one week of oral Bactrim DS 1 tab twice a day and restarted her preventatitive Macrobid. Patient aware that if she worsens she will need to go to ER. Family present and agreed with this plan of care. Patient discharged in stable condition. Status at Discharge Cognitive/behavioral status at discharge: awake, alert, oriented and extremely pleasant Functional status at discharge: uses cane/walker Overall status at discharge: patient is back to baseline Time Spent with Patient Time attestation: Total time spent providing and/or coordinating discharge services: 45 minutes Time spent: Greater than 30 minutes Exam Narrative: General: In no acute distress, well nourished Head: atraumatic Eyes: EOMI, PERRLA, sclera clear ENT: moist mucous membranes, nasal passages clear Neck: supple, no JVD, no adenopathy, trachea midline Cardiac: Normal S1 and S2. No murmur, gallops or friction rubs, peripheral pulses intact. Respiratory: Lungs clear to auscultation, no adventitious lung sounds Gastrointestinal: soft, non-distended, non-tender, normoactive bowel sounds. Extremities: moves all extremities well, no edema, good ROM, strength 5/5 Skin: clean, dry, intact. No wounds or lesions. Neuro: Alert and oriented x4, cranial nerves intact, no neuro deficits. Mild tremors Psych: normal mood, normal affect, interactive Discharge Plan Discharge Attending physician on discharge: Myron Harris Consulting providers: Dominik Ogden; Gina Marie; Onesimo Jones Discharging Clinician: Onesimo Jones Patient Disposition: NH Skilled Nursing/Asst Living Activity: as tolerated Diet: heart healthy Discharge Instructions: Per Care Coordination: Please fax discharge summary/any orders to [facility] at [phone] upon d
[2023-10-01 13:07] VITALS: O2SAT 96
--- NOTE | 2023-10-01 13:10 | PC.NURSE ---
Attempted to call and make follow up appointment with PMD. Unable to make contact with staff at office. Instructions given to patient to call for follow up.
[2023-10-01] MEDS: SULFAMETHOXAZOLE/TRIMETHOPRIM 800/160 MG DS TABLET 1 TAB PO (13:24)
--- NOTE | 2023-10-01 13:45 | PC.NURSE ---
Discharge instructions reviewed with patient. all questions answered. Pt escorted via wheelchair out and assisted into private vehicle.
== END 2023-10-01 13:55 | DRG 948 ==
PROVIDERS: Admitting Provider Internal Medicine; PCP Physician Assistant; Visit Provider Nurse Practitioner Acute Care
DX: R53.1 Weakness (principal); N39.0 Urinary tract infection, site not specified; I48.20 Chronic atrial fibrillation, unspecified; J96.11 Chronic respiratory failure with hypoxia; J44.9 Chronic obstructive pulmonary disease, unspecified; K21.9 Gastro-esophageal reflux disease without esophagitis; K44.9 Diaphragmatic hernia without obstruction or gangrene; M25.511 Pain in right shoulder; G89.29 Other chronic pain; G47.33 Obstructive sleep apnea (adult) (pediatric); R29.6 Repeated falls; F41.9 Anxiety disorder, unspecified; F32.A Depression, unspecified; Z86.718 Personal history of other venous thrombosis and embolism; Z99.81 Dependence on supplemental oxygen
CPT/HCPCS: 36415; 80053; 83735; 85027; 97110; 97116; 97161; 97165; 97530; 97535; A9270

== ENCOUNTER 2023-10-27 13:28 | Inpatient (IN) | payer MEDICARE, SELFPAY ==
[2023-10-27] VITALS (33 sets, daily range): BP systolic 96–152; BP diastolic 51–89; PULSE 76–136; RESP 12–39; TEMP 35.7–36.6; O2SAT 91–100
--- NOTE | ~2023-10-27 | XR_ITS ---
EXAMINATION: XR chest 1V portable Exam Date/Time: 10/27/2023 15:10 CDT HISTORY: short of breath Comparison: 09/17/2023. RESULT: Lines, tubes, and devices: Partially visualized cervical fusion hardware. Lower thoracic vertebropla sty cement. Lungs and pleura: Mild diffuse reticular opacities, likely senescent/interstitial change, otherwise clear. Cardiomediastinal silhouette: Stable. Right hemidiaphragm elevation. Other: No acute osseous or upper abdominal finding. IMPRESSION: No acute cardiopulmonary process. Reviewed, dictated and finalized at location K.
--- NOTE | ~2023-10-27 | US_ITS ---
EXAMINATION:US venous doppler LE BI INDICATION:Lower extremity edema TECHNIQUE: Multiple grayscale, color flow and Doppler images of the right and left lower extremity de ep venous systems were obtained and reviewed. COMPARISON:08/26/2023 FINDINGS: The common femoral, superficial femoral and popliteal veins demonstrate normal respiratory variation, augmentation and compressibility. Color flow is also seen within the posterior tibial, pe roneal, greater saphenous and profunda veins. IMPRESSION: 1: No lower extremity deep venous thrombosis. Reviewed, dictated and finalized at location B.
--- NOTE | 2023-10-27 14:28 | ECG_ITS ---
Test Date: 2023-10-27 14:59:14 Measurements Intervals [place] Rate: 84 P: 70 MO: 169 QRS: 13 QRSD: 138 T: -3 QT: 399 QTc: 472 Interpretive Statements SINUS RHYTHM RIGHT BUNDLE BRANCH BLOCK CONSIDER INFERIOR INFARCT, AGE INDETERMINATE BASELINE ARTIFACT- I, II, AVR, AVL, AVF, V1-V6 ABNORMAL ECG Compared to ECG 09/17/2023 10:20:47 NO SIGNIFICANT CHANGE Electronically Signed On 10-27-2023 15:06:03 CDT by Cristian Sanchez D.O.
[2023-10-27] MEDS: IPRATROPIUM 0.5 MG/ALBUTEROL SULFATE 2.5 MG AMPUL.NEB 3 ML 12 ML INHALATION (14:49)
[2023-10-27] MEDS: dexAMETHasone SOD PHOS INJ 10 MG/ML 1 ML VIAL IV PUSH (14:51)
[2023-10-27 14:59] LABS: Basophils Percent Auto 0.3 % (0.2-1.2); Eosinophils Absolute Auto 0.2 K/mm3 (0-0.3); Eosinophils Percent Auto 2.2 % (0-4.4); Hematocrit 37.3 % (37.0-47.0); Hemoglobin 11.2 g/dL (12.0-15.0); Immature Granulocyte Absolute 0.03 K/mm3 (0.00-0.031); Immature Granulocyte Percent A 0.4 % (0-0.5); Immature Platelet Fraction Pct 5.2 % (0.9-11.2); Lymphocytes Absolute Auto 1.69 K/mm3 (0.9-3.2); Lymphocytes Percent Auto 21.7 % (18.3-44.2); Mean Corpuscular Hemoglobin 28.8 pg (26-34); Mean Corpuscular Volume 95.9 fl (80-100); Mean Platelet Volume 10.2 fl (7.4-10.4); Monocytes Absolute Auto 0.5 K/mm3 (0.1-0.6); Monocytes Percent Auto 6.9 % (2.6-8.5); Neutrophils Absolute Auto 5.3 K/mm3 (1.3-6.7); Neutrophils Percent Auto 68.5 % (45.5-73.1); Platelet Count Result 145 k/mm3 (150-375); Red Blood Count 3.89 M/mm3 (4.2-5.4); Red Cell Distribution Width 13.8 % (11.5-14.5); White Blood Count 7.8 K/mm3 (4.5-10.0)
[2023-10-27 15:17] LABS: Alanine Aminotransferase 28 U/L (6-35); Albumin Level 3.8 g/dL (3.5-5.1); Alkaline Phosphatase 94 U/L (38-126); Aspartate Amino Transferase 40 U/L (14-36); Bilirubin,Total 0.5 mg/dL (0.2-1.3); Blood Urea Nitrogen 24 mg/dL (7-17); Calcium 9.1 mg/dL (8.4-10.2); Carbon Dioxide > 40 mmol/L (22-30); Chloride 96 mmol/L (98-107); Estimated Glomerular Filt Rate 59; Glucose 100 mg/dL (65-110); Potassium 4.5 mmol/L (3.4-5.0); Sodium 141 mmol/L (137-145)
--- NOTE | 2023-10-27 15:36 | ED.GENADULT ---
HPI - General Adult General Chief complaint: Shortness of Breath/Dyspnea Stated complaint: sob x wks, worsening today Time Seen by Provider: 10/27/23 13:42 History of Present Illness HPI narrative: This is an 88-year-old female with history of COPD on 2 L home oxygen presenting for shortness of breath. Patient says that her breathing has been getting worse over the last several weeks. She says she that she intermittently takes her inhalers but does not remember to take them every day. She denies fevers chills productive cough nausea vomiting or diarrhea. She does have some lower extremity edema for which she takes Lasix but denies any history of heart failure. Related Data Home Medications Medication Instructions Recorded Confirmed atorvastatin 80 mg tablet 80 mg PO HS 03/04/22 10/21/23 memantine 5 mg tablet 5 mg PO BID 03/04/22 10/21/23 pramipexole 0.5 mg tablet (Mirapex) 0.5 mg PO HS 03/07/22 10/21/23 ferrous sulfate 325 mg (65 mg 325 mg PO Q48H 10/01/22 10/21/23 iron) tablet pregabalin 100 mg capsule 100 mg PO BID 10/01/22 10/21/23 albuterol sulfate 2.5 mg/3 mL 2.5 mg inhalation Q8H PRN wheezing 10/13/22 10/21/23 (0.083 %) solution for nebulization cholecalciferol (vitamin D3) 25 25 mcg PO DAILY 10/13/22 10/21/23 mcg (1,000 unit) capsule (Vitamin D3) citalopram 20 mg tablet 20 mg PO QHS 02/20/23 10/21/23 guaifenesin 600 mg tablet, 600 mg PO Q12HR PRN Congestion 09/01/23 10/21/23 extended release 12 hr (Mucus Relief ER) lidocaine 4 % topical patch 1 patch transdermal DAILY PRN Back 09/01/23 10/21/23 (Lidocaine Pain Relief) Pain midodrine 10 mg tablet 10 mg PO BID 09/03/23 10/21/23 aripiprazole 2 mg tablet 2 mg PO QHS 09/17/23 10/21/23 bisacodyl 5 mg tablet,delayed 5 mg PO DAILY PRN constipation 09/17/23 10/21/23 release furosemide 20 mg tablet 20 mg PO DAILY 09/17/23 10/21/23 vit C 250 mg-vit E 90 mg-zinc 40 1 cap PO DAILY 09/17/23 10/21/23 mg-copper 1 [id number] capsule (PreserVision AREDS-2) Allergies Allergy/AdvReac Type Severity Reaction Status Date / Time chlorpromazine Allergy Unknown Unknown Verified 10/27/23 13:58 [From Thorazine] diphenhydramine Allergy Unknown Unknown Verified 10/27/23 13:58 [From Benadryl] meperidine [From Demerol] Allergy Unknown Unknown Verified 10/27/23 13:58 rofecoxib [From Vioxx] Allergy Unknown Unknown Verified 10/27/23 13:58 zolpidem [From Ambien] Allergy Unknown Unknown Verified 10/27/23 13:58 PMFSH Past Medical History Medical History Atrial fibrillation Chronic GERD Chronic obstructive pulmonary disease Chronic pain syndrome Chronic respiratory failure with hypoxia Deep venous thrombosis Depression with anxiety Hiatal hernia Obstructive sleep apnea Surgical History Surgical History History of bladder repair surgery History of breast surgery History of cataract extraction History of cholecystectomy History of colonoscopy History of esophagogastroduodenoscopy History of foot surgery History of fusion of cervical spine History of hernia repair History of hysterectomy History of spinal surgery History of tonsillectomy Family History Family History Father Bladder cancer Mother Hypertension Depression Sibling Asthma Hypertension Depression Grandparent Hypertension Heart disease Cerebrovascular accident Grandparent Alcoholism Lung cancer Social History Social History Social History: Surrogate medical decision maker: Tyrone Bullard, son. Code status: Full code. Smoking packs per day: 1 Smoking cigarettes per day: 20.0 Years smoked: 35 Smoking pack-years: 35.00 Smoking status: Former smoker Tobacco type: cigarettes Second hand tobacco smoke exposure: No Alcohol intake: never Drinks
[2023-10-27 15:49] LABS: NT Pro B Type Natriuretic Pept 839 pg/mL (19.9-100)
[2023-10-27 16:09] LABS: Fractional Inspired Oxygen 28 %; HCO3 VBG 37.7 mEq/l (24.0-30.0); pH VBG 7.301 (7.300-7.400)
[2023-10-27 16:13] LABS: Device NASAL CANNULA; PCO2 VBG 78.3 mmHg (42.0-48.0); PO2 VBG < 27.0 mmHg (35.0-45.0)
[2023-10-27] MEDS: methylPREDNISolone SOD SUCC 125 MG VIAL 60 MG IV PUSH (18:13)
--- NOTE | 2023-10-27 18:15 | PM.IMHP ---
H&P: HPI History of Present Illness Date/Time: 10/27/23 18:50 Chief Complaint: Shortness of breath. Narrative: This is a pleasant 88-year-old female with chronic respiratory failure on 2 L nasal cannula, chronic obstructive pulmonary disease, obstructive sleep apnea, paroxysmal atrial fibrillation no longer and anticoagulation following a recent fall, diastolic dysfunction, hypertension, hyperlipidemia, depression, anxiety, tremors, iron deficiency anemia, and deep venous thrombosis presented to the emergency department via EMS from [facility] for evaluation of shortness of breath. The patient provides the following history. She has some dyspnea on exertion at baseline however she has become increasingly short of breath over the past couple weeks. She has a dry cough but denies any other associated symptoms. It is gotten progressively worse to the point where ?I feel winded all the time.? She uses her inhalers intermittently but does not remember to use them every day but do seem to help when she uses them. She has chronic lower extremity edema which she does not believe is any worse than usual. She denies fever, chills, sweats, sinus congestion, sore throat, nausea, vomiting, chest and pleuritic pain, orthopnea, and calf pain. In the ED: She was afebrile on arrival with stable blood pressures. EKG showed a sinus rhythm without significant change compared to prior tracings. Labs were significant for WBC count of 7.8, hemoglobin 11.2, carbon dioxide greater than 40, BUN 24, AST 40, proBNP 839. Chest x-ray showed no acute cardiopulmonary disease. Venous blood gas showed a pH of 7.301, pCO2 70.3, PO2 less than 27, and a bicarb of 37.7. She was given steroids and DuoNeb with improvement and she is being admitted in this setting for further treatment. At the time my evaluation the only complaint she has is that of feelings of anxiety after receiving an hour long nebulizer and IV steroids. Review of Systems Review of Systems: 12 systems were reviewed and are negative except for as per HPI. [facility] Past Medical History Medical History (Updated 10/27/23 @ 22:05 by Beena Carrasco PA-C) Chronic GERD Chronic obstructive pulmonary disease Chronic pain syndrome Chronic respiratory failure with hypoxia and hypercapnia Deep venous thrombosis Depression with anxiety Heart failure with preserved ejection fraction Hiatal hernia Obstructive sleep apnea Paroxysmal atrial fibrillation Surgical History Surgical History History of bladder repair surgery History of breast surgery History of cataract extraction History of cholecystectomy History of colonoscopy History of esophagogastroduodenoscopy History of foot surgery History of fusion of cervical spine History of hernia repair History of hysterectomy History of spinal surgery History of tonsillectomy Family History Family History Father Bladder cancer Mother Hypertension Depression Sibling Asthma Hypertension Depression Grandparent Hypertension Heart disease Cerebrovascular accident Grandparent Alcoholism Lung cancer Social History Social History (Updated 10/27/23 @ 18:21 by Beena Carrasco PA-C) Social History: Surrogate medical decision maker: Tyrone Bullard, son. Code status: Full code. Smoking packs per day: 1 Smoking cigarettes per day: 20.0 Years smoked: 35 Smoking pack-years: 35.00 Smoking status: Former smoker Tobacco type: cigarettes Second hand tobacco smoke exposure: No Alcohol intake: never Drinks per week: 1 Substance use: never Substance use type: does not use Do You Feel Safe in your Home?: Yes Lack of Transportation: No Lack of Food: Never True Current Housing: I Have Housing Concerned About Future Housing: No Difficulty Paying Gas/Electric Bills: No Difficulty Paying for Meds: No Current
--- NOTE | 2023-10-27 18:59 | ADMGEN ---
This patient, Jazmin Bullard, was admitted to [address] [place] [address] Room 307-02. Patient/family oriented to hospital policies and general routines including ID bracelet, bed and alarms, visiting hours, pain management, procedures, bathroom and other care routines, personal items, smoking policy, room service/diet, and visiting hours. Information on how to activate the Rapid Response Team has been discussed. Patient/Family are encouraged to report perceived risks to care and to ask questions if they do not understand what they are told or what they should do.
--- NOTE | 2023-10-27 19:53 | ECG_ITS ---
Test Date: 2023-10-27 20:34:31 Measurements Intervals [place] Rate: 100 P: 78 IA: 172 QRS: 11 QRSD: 137 T: -20 QT: 373 QTc: 483 Interpretive Statements SINUS TACHYCARDIA WITH FREQUENT SUPRAVENTRICULAR PREMATURE COMPLEXES RIGHT BUNDLE BRANCH BLOCK BASELINE ARTIFACT- V4-V5 ABNORMAL ECG Compared to ECG 10/27/2023 14:59:14 HEART RATE HAS INCREASED FREQUENT ATRIAL PREMATURE COMPLEXES NOW PRESENT Electronically Signed On 10-28-2023 07:21:43 CDT by Cristian Sanchez D.O.
[2023-10-27] MEDS: oxyCODONE HCL (*CRX) 2.5 MG TAB IR PO (21:32)
[2023-10-27] MEDS: ATORVASTATIN 40 MG TABLET 80 MG PO (21:33)
[2023-10-27] MEDS: DOCUSATE SODIUM 100 MG CAPSULE PO (21:33)
[2023-10-27] MEDS: ARIPiprazole 2 MG TABLET PO (21:33)
[2023-10-27] MEDS: CITALOPRAM HYDROBROMIDE 20 MG TABLET PO (21:33)
[2023-10-27] MEDS: MEMANTINE 5 MG TABLET PO (21:33)
[2023-10-27] MEDS: oxyCODONE/ACETAMINOPHEN (*CRX) 5-325 MG TABLET 1 TABLET PO (21:33)
[2023-10-27] MEDS: PREGABALIN (*CRX) 50 MG CAPSULE 100 MG PO (21:34)
[2023-10-27] MEDS: MIRTAZAPINE 15 MG TABLET PO (21:34)
[2023-10-27] MEDS: PRAMIPEXOLE 0.5 MG TABLET PO (22:29)
[2023-10-27] MEDS: TOLNAFTATE 1% POWDER 45 GM BTL 1 APPLIC TOPICAL (23:13)
[2023-10-27 23:45] LABS: Fractional Inspired Oxygen 36 %; HCO3 VBG 30.5 mEq/l (24.0-30.0); PCO2 VBG 46.7 mmHg (42.0-48.0); PO2 VBG 52.3 mmHg (35.0-45.0)
[2023-10-27 23:47] LABS: pH VBG 7.433 (7.300-7.400)
[2023-10-27 23:48] LABS: Device CPAP
[2023-10-28] VITALS (19 sets, daily range): BP systolic 101–125; BP diastolic 67–75; PULSE 71–135; RESP 14–22; TEMP 36.2–36.4; O2SAT 92–98
[2023-10-28] MEDS: oxyCODONE HCL (*CRX) 2.5 MG TAB IR PO ×3 (05:56→19:23)
[2023-10-28] MEDS: oxyCODONE/ACETAMINOPHEN (*CRX) 5-325 MG TABLET 1 TABLET PO ×3 (05:57→19:24)
[2023-10-28 06:28] LABS: Hematocrit 35.6 % (37.0-47.0); Hemoglobin 10.8 g/dL (12.0-15.0); Mean Corpuscular HGB Conc 30.3 g/dl (32-36); Mean Corpuscular Hemoglobin 28.3 pg (26-34); Mean Corpuscular Volume 93.4 fl (80-100); Mean Platelet Volume 10.7 fl (7.4-10.4); Platelet Count Result 146 k/mm3 (150-375); Red Blood Count 3.81 M/mm3 (4.2-5.4); Red Cell Distribution Width 14.1 % (11.5-14.5)
[2023-10-28 06:37] LABS: Anion Gap 6 mmol/L (4-12); Blood Urea Nitrogen 27 mg/dL (7-17); Calcium 9.4 mg/dL (8.4-10.2); Carbon Dioxide 35 mmol/L (22-30); Chloride 98 mmol/L (98-107); Estimated Glomerular Filt Rate 59; Glucose 143 mg/dL (65-110); Magnesium 2.1 mg/dL (1.6-2.3); Potassium 4.5 mmol/L (3.4-5.0); Sodium 139 mmol/L (137-145)
[2023-10-28] MEDS: LEVALBUTEROL NEB 1.25 MG/3 ML INHALATION ×3 (07:15→19:43)
[2023-10-28] MEDS: IPRATROPIUM BR 0.02% INH SOLN 0.5 MG/2.5 ML VIAL INHALATION ×3 (07:15→19:43)
[2023-10-28] MEDS: PREGABALIN (*CRX) 50 MG CAPSULE 100 MG PO ×2 (10:03→17:49)
[2023-10-28] MEDS: CHOLECALCIFEROL 1,000 UNITS TABLET 1000 UNITS PO (10:03)
[2023-10-28] MEDS: FUROSEMIDE 20 MG TABLET PO (10:03)
[2023-10-28] MEDS: DOCUSATE SODIUM 100 MG CAPSULE PO ×2 (10:03→17:48)
[2023-10-28] MEDS: OPTI-GEN TAB 1 TABLET PO (10:03)
[2023-10-28] MEDS: ENOXAPARIN 40 MG/0.4 ML SYRINGE SUB-Q (10:03)
[2023-10-28] MEDS: NITROFURANTOIN MONOHYD MACROCR 100 MG CAP PO (10:03)
[2023-10-28] MEDS: PANTOPRAZOLE 40 MG TABLET PO (10:03)
[2023-10-28] MEDS: MEMANTINE 5 MG TABLET PO ×2 (10:03→21:29)
[2023-10-28] MEDS: TOLNAFTATE 1% POWDER 45 GM BTL 1 APPLIC TOPICAL ×2 (12:16→21:30)
--- NOTE | 2023-10-28 12:17 | PM.CNPUL ---
Assessment and Plan Assessment and plan (1) Chronic obstructive pulmonary disease with acute exacerbation: Code(s): J44.1 - Chronic obstructive pulmonary disease with (acute) exacerbation Status: Acute Assessment and Plan: Severe COPD by history; on supplemental O2 for 5 years; no smoking for 3-4 yr, quit 2019; coughs most days, has scant sputum, short of breath with activities but activity limited by hip fracture and short right leg, chronic pain. Often in wheelchair. 10/27/23 VBG =pH 7.30 with PCO2 78. CXR = mild diffuse reticular opacities c/w chronic changes and right elevation of hemidiaphragm. She had wheezing on presentation, better with steroids. No sputum to test for pathogens. No DVT on Dopplers. Echo showed normal systolic function, EF 70%. She was followed by JULIA Ortega, at [facility]. Ms Matthews has left the practice, pt needs to follow up with someone, and agrees to see us in the office. (2) Acute on chronic respiratory failure with hypoxia and hypercapnia: Code(s): J96.21 - Acute and chronic respiratory failure with hypoxia; J96.22 - Acute and chronic respiratory failure with hypercapnia Status: Acute Assessment and Plan: Uses O2 at home, 2L in the day, 3 L with sleep. She uses Trelegy 100 daily and p.r.n. albuterol, about twice a day. No intubations. Required more O2 on admission, weaning as tolerated. (3) Shortness of breath: Code(s): R06.02 - Shortness of breath Status: Acute Assessment and Plan: Increasing shortness of breath over the last several weeks, better after admission. She does not have evidence of an infectious process this admission. She has new A-fib with RVR on admission, rate now controlled, no decreased LV function. Atrial fib may better controlled with non invasive ventilator use. Plan She wants to avoid recurrent hospital admissions by managing her acute on chronic respiratory failure with non invasive ventilator. She understands importance of using this with sleep and in the day as needed. She lives at [facility], is able to get to dining room for meals, has support. She uses O2 around the clock, 2 L in the day, 3 L with sleep, has a nebulizer for emergency use. She is able to be weaned as tolerated, and will continue management of her COPD. 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 Lives at [facility]. She was in [place] last month, the hospital last month; she is re-admitted with increased shortness of breath and paroxysmal atrial fibrillation. She reports that she improved after discharge, was not all the way back to baseline. Se was admitted with increasing shortness of breath, She did not have symptoms suggestive of infection, no fever, productive cough, sore throat, thick nasal drainage. She has not been exposed to sick family members. She has been followed by pulmonology DOCTOR NATUROPATHIC Darcie Matthews who recently stopped seeing patients in this area, now is in [place]. The patient does not have chest pain, syncope, dizziness, She is followed by Dr Rosa Maria Polanco, cardiology. She does not think that she has a diagnosis of CHF. Sleep: Depression:L Long history of severe depression, recently had Celexa dose changed, was at 20 mg, increased then decreased due to medication interactions. Abilify was added a month ago. DATA * 10/27/23: echo Summary 1. Left ventricular chamber dimension is
[2023-10-28] MEDS: FERROUS SULFATE 325 MG TABLET DR PO (15:02)
--- NOTE | 2023-10-28 19:56 | PM.IMPN ---
Progress Note: A&P Assessment and Plan (1) Shortness of breath: Code(s): R06.02 - Shortness of breath Status: Acute (2) Chronic obstructive pulmonary disease: Code(s): J44.9 - Chronic obstructive pulmonary disease, unspecified Status: Acute (3) Chronic respiratory failure with hypoxia and hypercapnia: Code(s): J96.11 - Chronic respiratory failure with hypoxia; J96.12 - Chronic respiratory failure with hypercapnia Status: Acute (4) Paroxysmal atrial fibrillation: Code(s): I48.0 - Paroxysmal atrial fibrillation Status: Acute (5) Depression with anxiety: Code(s): F41.8 - Other specified anxiety disorders Status: Chronic (6) Hyperlipidemia: Code(s): E78.5 - Hyperlipidemia, unspecified Status: Acute (7) Obstructive sleep apnea: Code(s): G47.33 - Obstructive sleep apnea (adult) (pediatric) Status: Acute (8) Chronic pain syndrome: Code(s): G89.4 - Chronic pain syndrome Status: Acute Plan The patient presented to the emergency department for evaluation of shortness of breath which has been worse over the past couple of weeks as detailed in HPI. Labs, imaging, EKG, and all reports were personally reviewed. Her shortness of breath is likely due to her underlying COPD and untreated sleep apnea. She does not have any significant wheezing on exam and there are no findings of CHF. Pulmonary embolism seems less likely by her history though given her mild lower extremity edema, venous Doppler ultrasounds have been ordered to rule out DVT. On auscultation her lung sounds are very tight and diminished but seemed to have improve with a DuoNeb. Continue scheduled bronchodilators. Hold further steroids as she is not wheezing and the steroids have caused her to feel quite anxious. She is tachycardic since receiving and hour long nebulizer thus will change albuterol to leave albuterol. VBG shows a compensated respiratory acidosis with a pH of 7.301, pCO2 78.3, and bicarb of 37.7. We discussed trying noninvasive ventilation and she is willing to try CPAP but would prefer not to try BiPAP at this time. Repeat VBG later to see if there is any improvement. I will ask pulmonology to see her in consultation per patient request as her breathing has gotten increasingly worse and she does not have an appointment with a hoop machine operator for over a month. Blood pressures were reviewed and they are stable. Her home medications will be reviewed and resumed as appropriate. Findings and treatment plan were discussed with the patient. Questions were solicited and answered to satisfaction. The patient's medical management will be taken over by the hospitalist team in a.m. 10/28/23 -pulmonary consulted. Continue bronchodilators. Steroids have not been continued. She is not on antibiotics at this time. Chest x-ray was clear and white count is normal. Echo showing EF 70% with grade 1 diastolic dysfunction. Dopplers negative for DVT. She does have paroxysmal AFib but is not on anticoagulation. She is requesting the telemetry be stopped which will do so. Start PT and OT DVT prophylax -Lovenox Code status -full Subjective Date/time seen: 10/28/23 19:56 Interval history: 88yo female with chronic respiratory failure on 2 L nasal cannula, chronic obstructive pulmonary disease, obstructive sleep apnea, paroxysmal atrial fibrillation no longer and anticoagulation following a recent fall, diastolic dysfunction, hypertension, hyperlipidemia, depression, anxiety, tremors, iron deficiency anemia, and deep venous thrombosis presented to the emergency department via EMS from [facility] for evaluation of shortness of breath. Assuming care. Chart reviewed. Cough is nonproductive. She feels tired. Still with shortness of breath but better. No chest pain. No nausea, vomiting or diarrhea. Exam Narrative: AF 97.1 101/67 8.3 18 94% 2L Gen - NARD Chest -distant breath sounds with b
--- NOTE | 2023-10-28 20:32 | ECHO_ITS ---
Patient Info Name: Jazmin Bullard Age: 88 years : 1935 Gender: Female Ht: 54 in Wt: 143 lbs BSA: 1.61 m2 HR: 86 bpm BP: 120 / 68 mmHg Heart Rhythm: Sinus Rhythm Technical Quality: Good Exam Date: 10/28/2023 8:59 AM Exam Location: Echo Lab Patient Status: Outpatient Admit Date: 10/27/2023 Staff Ordering Physician: Beena Carrasco PA-C Training Designer: Dima López RDCS Attending Provider: Jethro Shrestha MD Referring Physician: Danilo WILHELM; Exam Type: CA echo doppler color flow Study Info Indications - dCHF - COPD - atrial tachycardia Complete two-dimensional, color flow and Doppler transthoracic echocardiogram is performed. Summary 1. Left ventricular chamber dimension is normal. 2. Left ventricular systolic function is hyperdynamic, estimated at >70%. 3. There is mildly increased left ventricular wall thickness. 4. The left ventricular diastolic function is grade I diastolic dysfunction. 5. Right ventricular systolic function is normal. 6. Left atrial chamber dimension is severely enlarged. 7. There is mild mitral valve regurgitation. 8. There is mild tricuspid valve regurgitation. Left Ventricle Left ventricular chamber dimension is normal. Left ventricular systolic function is hyperdynamic, estimated at >70%. There is mildly increased left ventricular wall thickness. The left ventricular diastolic function is grade I diastolic dysfunction. Right Ventricle Right ventricular chamber dimension is normal. Right ventricular systolic function is normal. Left Atria Left atrial chamber dimension is severely enlarged. Right Atria Right atrial chamber dimension is normal. Atrial Septum Intact interatrial septum visualized by color flow imaging. Aortic Valve The aortic valve is not well visualized. There is no aortic valve regurgitation. There is mild aortic valve calcification. Pulmonic Valve The pulmonic valve is not well visualized. Mitral Valve There is mild mitral valve regurgitation. Tricuspid Valve There is mild tricuspid valve regurgitation. Pericardium/Pleural There is no pericardial effusion. Inferior Vena Cava Dilated inferior vena cava with <50% collapse upon inspiration consistent with elevated right atrial pressure, 15 mmHg. Aorta The aortic root size at the sinus of Valsalva is normal. Left Ventricular Outflow Tract Name Value Normal LVOT 2D LVOT Diameter 1.8 cm LVOT Doppler LVOT Peak Gradient 15 mmHg LVOT Mean Gradient 7 mmHg LVOT VTI 34 cm LVOT VTI/AV VTI Ratio 0.7 LVOT Stroke Volume 90 ml LVOT CO 11.1 l/min LVOT CI 6.9 l/min/m2 Pulmonic Valve Name Value Normal PV Doppler PV Peak Gradient 7 mmHg Mitral Valve
[2023-10-28] MEDS: ARIPiprazole 2 MG TABLET PO (21:29)
[2023-10-28] MEDS: ATORVASTATIN 40 MG TABLET 80 MG PO (21:29)
[2023-10-28] MEDS: CITALOPRAM HYDROBROMIDE 20 MG TABLET PO (21:29)
[2023-10-28] MEDS: MIRTAZAPINE 15 MG TABLET PO (21:29)
[2023-10-28] MEDS: PRAMIPEXOLE 0.5 MG TABLET PO (21:54)
[2023-10-29] VITALS (18 sets, daily range): BP systolic 111–156; BP diastolic 62–84; PULSE 71–99; RESP 14–22; TEMP 36.2–36.5; O2SAT 94–98
[2023-10-29] MEDS: LEVALBUTEROL NEB 1.25 MG/3 ML INHALATION ×4 (02:05→21:05)
[2023-10-29] MEDS: IPRATROPIUM BR 0.02% INH SOLN 0.5 MG/2.5 ML VIAL INHALATION ×2 (02:05→07:05)
[2023-10-29] MEDS: oxyCODONE/ACETAMINOPHEN (*CRX) 5-325 MG TABLET 1 TABLET PO ×4 (02:48→21:38)
[2023-10-29] MEDS: oxyCODONE HCL (*CRX) 2.5 MG TAB IR PO ×4 (02:51→21:37)
[2023-10-29 06:38] LABS: Hematocrit 34.1 % (37.0-47.0); Hemoglobin 10.4 g/dL (12.0-15.0); Immature Platelet Fraction Pct 6.3 % (0.9-11.2); Mean Corpuscular HGB Conc 30.5 g/dl (32-36); Mean Corpuscular Hemoglobin 28.7 pg (26-34); Mean Corpuscular Volume 94.2 fl (80-100); Mean Platelet Volume 10.5 fl (7.4-10.4); Platelet Count Result 140 k/mm3 (150-375); Red Blood Count 3.62 M/mm3 (4.2-5.4); Red Cell Distribution Width 14.8 % (11.5-14.5); White Blood Count 7.6 K/mm3 (4.5-10.0)
[2023-10-29 06:47] LABS: Anion Gap 6 mmol/L (4-12); Blood Urea Nitrogen 33 mg/dL (7-17); Calcium 8.6 mg/dL (8.4-10.2); Carbon Dioxide 36 mmol/L (22-30); Chloride 96 mmol/L (98-107); Estimated Glomerular Filt Rate 52; Glucose 94 mg/dL (65-110); Potassium 4.4 mmol/L (3.4-5.0); Sodium 138 mmol/L (137-145)
[2023-10-29 06:51] LABS: Iron 38 ug/dL (37-170)
[2023-10-29 07:00] LABS: Percent Iron Saturation 12 % (20-50)
[2023-10-29] MEDS: FUROSEMIDE 20 MG TABLET PO (09:07)
[2023-10-29] MEDS: MEMANTINE 5 MG TABLET PO ×2 (09:07→21:22)
[2023-10-29] MEDS: CHOLECALCIFEROL 1,000 UNITS TABLET 1000 UNITS PO (09:07)
[2023-10-29] MEDS: NITROFURANTOIN MONOHYD MACROCR 100 MG CAP PO (09:07)
[2023-10-29] MEDS: ENOXAPARIN 40 MG/0.4 ML SYRINGE SUB-Q (09:07)
[2023-10-29] MEDS: DOCUSATE SODIUM 100 MG CAPSULE PO ×2 (09:08→16:06)
[2023-10-29] MEDS: OPTI-GEN TAB 1 TABLET PO (09:08)
[2023-10-29] MEDS: PREGABALIN (*CRX) 50 MG CAPSULE 100 MG PO ×2 (09:08→16:06)
[2023-10-29] MEDS: PANTOPRAZOLE 40 MG TABLET PO (09:08)
--- NOTE | 2023-10-29 12:28 | PM.IMPN ---
Progress Note: A&P Assessment and Plan (1) Chronic obstructive pulmonary disease: Code(s): J44.9 - Chronic obstructive pulmonary disease, unspecified Status: Acute Assessment and Plan: Patient presents with shortness of breath. VBG showing pH 7.30 with PCO2 78. CXR showing mild diffuse reticular opacities c/w chronic changes and right elevation of hemidiaphragm. Patient wheezing on admission. Treated with bronchodilators. She was given 1 dose of Decadron and Solu-Medrol but steroids not continued. Not having productive cough and chest x-ray not consistent with pneumonia so antibiotics were held. Lower extremity venous Doppler was negative DVT. Echo showing EF 70% with Grade I diastolic dysfunction. Pulmonary consulted. She is feeling better but not back to baseline. Continue bronchodilators. Continue Trelegy. Trial of oral steroids. (2) Chronic respiratory failure with hypoxia and hypercapnia: Code(s): J96.11 - Chronic respiratory failure with hypoxia; J96.12 - Chronic respiratory failure with hypercapnia Status: Acute Assessment and Plan: Patient with chronic respiratory failure with hypoxia and hypercarbia. She is stable on 2 L nasal cannula. Continue to encourage BiPAP use at night and with naps. (3) Paroxysmal atrial fibrillation: Code(s): I48.0 - Paroxysmal atrial fibrillation Status: Acute Assessment and Plan: Patient with paroxysmal atrial fibrillation. She has frequent PACs and sinus arrhythmia as well. Rate is stable. She is not on rate-controlling agents. She is not on anticoagulation due to falls. Okay to stop telemetry per patient wishes. (4) Depression with anxiety: Code(s): F41.8 - Other specified anxiety disorders Status: Chronic Assessment and Plan: Mood stable although has a general sense of feeling unwell. Unclear if this is related to her COPD exacerbation that is poorly treated or related to her underlying mood disorder. Patient also has underlying cognitive issues and is on Namenda currently. Continue Namenda. Continue Abilify, Celexa, and Remeron (5) Obstructive sleep apnea: Code(s): G47.33 - Obstructive sleep apnea (adult) (pediatric) Status: Acute Assessment and Plan: Patient tolerating her BiPAP at night. Continue the same. Plan Disposition - PT and OT started DVT prophylax -Lovenox Code status -full Subjective Date/time seen: 10/29/23 12:28 Interval history: 88yo female with chronic respiratory failure on 2 L nasal cannula, chronic obstructive pulmonary disease, obstructive sleep apnea, paroxysmal atrial fibrillation no longer and anticoagulation following a recent fall, diastolic dysfunction, hypertension, hyperlipidemia, depression, anxiety, tremors, iron deficiency anemia, and deep venous thrombosis presented to the emergency department via EMS from [facility] for evaluation of shortness of breath. She slept okay. SOB is better. She wore the bipap overnight. No CP but last night, she had a sharp pain wrapping around her lower torso during a breathing treatment. Symptoms better after pain medications. Exam Narrative: AF 97.2 156/84 79 18 97% 2L Gen - NARD Chest - distant BS with few basilar crackles but improved air exchange CV -irregularly irregular. Telemetry showing sinus arrhythmia and occasional tachycardia. Abd - Soft, NT/ND, Positive BS Ext - trace pedal edema Psych - Nml mood and affect Skin - Warm and dry Objective Data Vital Signs Vital Signs: Vital Signs - 24 hr 10/28/23 13:52 10/28/23 14:07 10/28/23 14:23 Temperature 97.1 F L Pulse Rate 93 104 H 102 H Respiratory Rate 18 18 18 Blood Pressure 101/67 Pulse Oximetry 97 Oxygen Delivery Oxygen Flow Rate 10/28/23 16:00 10/28/23 19:44 10/28/23 19:48 Temperature Pulse Rate 99 83 Respiratory Rate 18 Blood Pressure Pulse Oximetry 94 Oxygen Delivery Nasal
[2023-10-29] MEDS: TOLNAFTATE 1% POWDER 45 GM BTL 1 APPLIC TOPICAL ×2 (13:16→21:29)
[2023-10-29] MEDS: predniSONE 20 MG TABLET 40 MG PO (13:56)
--- NOTE | 2023-10-29 21:00 | PM.PNPUL ---
Progress Note: A&P Assessment and Plan (1) COPD (chronic obstructive pulmonary disease): Code(s): J44.9 - Chronic obstructive pulmonary disease, unspecified Status: Acute Assessment and Plan: Severe COPD by history; on o2 for 5 years; no smoking for 3-4 yr, quit 2019; coughs most days, has scant sputum, short of breath with activities but activity limited by hip fracture and short right leg, chronic pain. Oftne in wheelchair. 10/27/23 VBG =pH 7.30 with PCO2 78. CXR = mild diffuse reticular opacities c/w chronic changes and right elevation of hemidiaphragm. She had wheezing on presentation, better with steroids. No sputum to test for pathogens. No DVT on Dopplers. Echo showed normal systolic function, EF 70%. She was followed by [facility] who left this area within the last 6 months, so she has not had much care since then; we are requesting records to evaluate her PFTs, degree of COPD. (2) Acute on chronic respiratory failure with hypoxia and hypercapnia: Code(s): J96.21 - Acute and chronic respiratory failure with hypoxia; J96.22 - Acute and chronic respiratory failure with hypercapnia Status: Acute Assessment and Plan: Uses O2 at home, 2L in the day, 3 L with sleep. She uses Trelegy 100 daily and p.r.n. albuterol, about twice a day. No intubations. (3) Shortness of breath: Code(s): R06.02 - Shortness of breath Status: Acute Assessment and Plan: Increasing shortness of breath over the last several weeks, better after admission. She does not have evidence of an infectious process this admission. Plan She is a candidate for ventilator for chronic respiratory failure due to COPD which will be used nocturnally and in the daytime as required. BiPAP has been considered, attempted, and has been ruled out. She remains short of breath at times in the day, will need noninvasive ventilator for nighttime use due to COPD and chronic hypercapnic hypoxemic respiratory failure. She may also use in the daytime is needed for shortness of breath as needed. She wants to avoid recurrent hospital admissions by managing her acute on chronic respiratory failure with non invasive ventilator. She understands importance of using this with sleep and in the day as needed. She lives at [facility], is able to get to dining room for meals, has support. She uses O2 around the clock, 2 L in the day, 3 L with sleep, has a nebulizer for emergency use. Subjective Date/time seen: 10/29/23 16:40 Interval history: hospital follow up 10/29/23 : feels better using BiPAP, able to clear secretions a bit better. She is able to toelrate BiPAP at night, has less swelling, still moderately short of breath. 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 Lives at [facility]. For COPD she uses Trelegy 100 and prn albuterol She has been falling more over the last several months, getting UTIs. Fell in July, had hematoma around Left hip. Cardiology started her on midodrine to increas her BP and stopped Plavix. She was in [facility] last month, the hospital last month; she is re-admitted with increased shortness of breath and paroxysmal atrial fibrillation. She reports that she improved after discharge, was not all the way back to baseline. She did not have symptoms suggestive of infection, no fever, productive cough, sore throat, thick nasal drainage. She has not been exposed to known sick individuals however she lives in [facility], many older people. tobacco: 1 ppd x 40 years, quit 2019. 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
[2023-10-29] MEDS: CITALOPRAM HYDROBROMIDE 20 MG TABLET PO (21:21)
[2023-10-29] MEDS: ARIPiprazole 2 MG TABLET PO (21:22)
[2023-10-29] MEDS: ATORVASTATIN 40 MG TABLET 80 MG PO (21:22)
[2023-10-29] MEDS: MIRTAZAPINE 15 MG TABLET PO (21:29)
[2023-10-29] MEDS: PRAMIPEXOLE 0.5 MG TABLET PO (21:37)
[2023-10-30] VITALS (13 sets, daily range): BP systolic 110–121; BP diastolic 53–63; PULSE 69–91; RESP 13–22; TEMP 36.2–36.7; O2SAT 93–97
[2023-10-30] MEDS: LEVALBUTEROL NEB 1.25 MG/3 ML INHALATION ×4 (02:27→20:10)
[2023-10-30] MEDS: oxyCODONE/ACETAMINOPHEN (*CRX) 5-325 MG TABLET 1 TABLET PO ×4 (04:26→21:35)
[2023-10-30] MEDS: oxyCODONE HCL (*CRX) 2.5 MG TAB IR PO ×4 (04:26→21:35)
[2023-10-30] MEDS: FLUTICASONE/UMECLIDIN/VILANTER 100-62.5-25 MCG ELLIPTA 1 PUFF INHALATION (07:57)
[2023-10-30] MEDS: PANTOPRAZOLE 40 MG TABLET PO (08:26)
[2023-10-30] MEDS: NITROFURANTOIN MONOHYD MACROCR 100 MG CAP PO (08:26)
[2023-10-30] MEDS: PREGABALIN (*CRX) 50 MG CAPSULE 100 MG PO ×2 (08:26→16:22)
[2023-10-30] MEDS: MEMANTINE 5 MG TABLET PO ×2 (08:26→21:33)
[2023-10-30] MEDS: CHOLECALCIFEROL 1,000 UNITS TABLET 1000 UNITS PO (08:26)
[2023-10-30] MEDS: DOCUSATE SODIUM 100 MG CAPSULE PO ×2 (08:27→16:22)
[2023-10-30] MEDS: OPTI-GEN TAB 1 TABLET PO (08:27)
[2023-10-30] MEDS: FUROSEMIDE 20 MG TABLET PO (08:27)
[2023-10-30] MEDS: predniSONE 20 MG TABLET 40 MG PO (08:27)
[2023-10-30] MEDS: ENOXAPARIN 40 MG/0.4 ML SYRINGE SUB-Q (08:27)
[2023-10-30] MEDS: TOLNAFTATE 1% POWDER 45 GM BTL 1 APPLIC TOPICAL ×2 (08:28→21:33)
[2023-10-30] MEDS: FERROUS SULFATE 325 MG TABLET DR PO (11:18)
--- NOTE | 2023-10-30 15:19 | PM.PNPUL ---
Progress Note: A&P Assessment and Plan (1) COPD (chronic obstructive pulmonary disease): Code(s): J44.9 - Chronic obstructive pulmonary disease, unspecified Status: Acute Assessment and Plan: Severe COPD by history; on o2 for 5 years; no smoking for 3-4 yr, quit 2019; coughs most days, has scant sputum, short of breath with activities but activity limited by hip fracture and short right leg, chronic pain. Oftne in wheelchair. 10/27/23 VBG =pH 7.30 with PCO2 78. CXR = mild diffuse reticular opacities c/w chronic changes and right elevation of hemidiaphragm. She had wheezing on presentation, better with steroids. No sputum to test for pathogens. No DVT on Dopplers. Echo showed normal systolic function, EF 70%. She was followed by JULIA Ortega, at [facility]. Ms Matthews has left the practice, pt needs to follow up with someone, and agrees to see us in the office. I reviewed records form [facility] cardiology notes, Dr Rosa Maria Polanco's visit August 09; patient did not have atrial fib. I spoke with a [facility] correspondence rep in [facility] stating that the patient hade no PFTs, walk studies, or other information. 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 PFTs are not available to review. [facility] said that Andriy Matthews left the practice, and no notes are available. This is not standard. The practitioner left however the notes are property of the practice. [facility] did not provide health information that is needed to provide optial care. The patient does not have a cell phone, does not have technological skills. dose not have patient portal access. (2) Acute on chronic respiratory failure with hypoxia and hypercapnia: Code(s): J96.21 - Acute and chronic respiratory failure with hypoxia; J96.22 - Acute and chronic respiratory failure with hypercapnia Status: Acute Assessment and Plan: Uses O2 at home, 2L in the day, 3 L with sleep. She uses Trelegy 100 daily and p.r.n. albuterol, about twice a day. No intubations. She is on 2 L/min in the day, saturation is 95-97%, can be weaned. She does not need a formal walk study. This saturation is at rest. (3) Shortness of breath: Code(s): R06.02 - Shortness of breath Status: Acute Assessment and Plan: Increasing shortness of breath over the last several weeks, better after admission. She does not have evidence of an infectious process this admission. She has new A-fib with RVR on admission, rate now controlled, no decreased LV function. Atrial fib may better controlled with non invasive ventilator use. Plan She is a candidate for ventilator for chronic respiratory failure due to COPD which will be used nocturnally and in the daytime as required. BiPAP has been considered, attempted, and has been ruled out. She remains short of breath at times in the day, will need a noninvasive ventilator for nighttime use due to COPD and chronic hypercapnic hypoxemic respiratory failure. She may also use in the daytime is needed for shortness of breath as needed. She wants to avoid recurrent hospital admissions by managing her acute on chronic respiratory failure with non invasive ventilator. She understands importance of using this with sleep and in the day as needed. She lives at [facility], is able to get to dining room for meals, has support. She uses O2 around the clock, 2 L in the day, 3 L with sleep, has a nebulizer for emergency use. plan: 1) Decrease O2 to 1 L at rest and 2 L with exertion and sleep. 2) Non invasive ventilator with night time sleep and in the day as needed for shortness of breath with 2 L/min. Trilogy Home Ventilator with non-invasive interface ([facility] [id number]) with heated humidi
--- NOTE | 2023-10-30 16:11 | PM.IMPN ---
Progress Note: A&P Assessment and Plan (1) Chronic obstructive pulmonary disease: Code(s): J44.9 - Chronic obstructive pulmonary disease, unspecified Status: Acute Assessment and Plan: Patient presents with shortness of breath. VBG showing pH 7.30 with PCO2 78. CXR showing mild diffuse reticular opacities c/w chronic changes and right elevation of hemidiaphragm. Patient wheezing on admission. Treated with bronchodilators. She was given 1 dose of Decadron and Solu-Medrol but steroids not continued. Not having productive cough and chest x-ray not consistent with pneumonia so antibiotics were held. Lower extremity venous Doppler was negative DVT. Echo showing EF 70% with Grade I diastolic dysfunction. Pulmonary consulted. She was feeling better but not back to baseline so Prednisone added with benefit. She is also now wearing the BiPAP which also is probably helping Continue bronchodilators and steroids. Continue Trelegy. Apprecaite Pulmonary input Pulm trying to get a NIV for home (2) Chronic respiratory failure with hypoxia and hypercapnia: Code(s): J96.11 - Chronic respiratory failure with hypoxia; J96.12 - Chronic respiratory failure with hypercapnia Status: Acute Assessment and Plan: Patient with chronic respiratory failure with hypoxia and hypercarbia. She is stable on 2 L nasal cannula. Continue to encourage BiPAP use at night and with naps. (3) Paroxysmal atrial fibrillation: Code(s): I48.0 - Paroxysmal atrial fibrillation Status: Acute Assessment and Plan: Patient with paroxysmal atrial fibrillation. She has frequent PACs and sinus arrhythmia as well. Rate is stable. She is not on rate-controlling agents. She is not on anticoagulation due to falls. (4) Depression with anxiety: Code(s): F41.8 - Other specified anxiety disorders Status: Chronic Assessment and Plan: Mood stable and appears in good spirits. Patient also has underlying cognitive issues and is on Namenda currently. Continue Namenda. Continue Abilify, Celexa, and Remeron (5) Obstructive sleep apnea: Code(s): G47.33 - Obstructive sleep apnea (adult) (pediatric) Status: Acute Assessment and Plan: Patient tolerating her BiPAP at night. Continue the same. Plan Disposition - PT and OT DVT prophylax -Lovenox Code status -full Subjective Date/time seen: 10/30/23 16:11 Interval history: 88yo female with chronic respiratory failure on 2 L nasal cannula, chronic obstructive pulmonary disease, obstructive sleep apnea, paroxysmal atrial fibrillation no longer and anticoagulation following a recent fall, diastolic dysfunction, hypertension, hyperlipidemia, depression, anxiety, tremors, iron deficiency anemia, and deep venous thrombosis presented to the emergency department via EMS from [facility] for evaluation of shortness of breath. Eating well. SOB better. She wore her bipap last night. Slept well. She is ready for discahrge. Exam Narrative: AF 97.1 121/60 74 20 95% 2L Gen - NARD Chest - L>R bibasilar crackles o/w distant BS. nml RR CV - irregularly irregular Abd - Soft, NT/ND, Positive BS Ext - no pedal edema Psych - Nml mood and affect Skin - Warm and dry Objective Data Vital Signs Vital Signs: Vital Signs - 24 hr 10/29/23 20:50 10/29/23 22:30 10/29/23 21:05 Temperature 97.1 F L Pulse Rate 85 88 88 Respiratory Rate 22 H 15 16 Blood Pressure 123/62 Pulse Oximetry 94 95 Oxygen Delivery Autopap Oxygen Flow Rate 10/29/23 21:12 10/30/23 02:27 10/30/23 02:27 Temperature Pulse Rate 85 72 72 Respiratory Rate 16 22 H 22 H Blood Pressure Pulse Oximetry 93 Oxygen Delivery Autopap Oxygen Flow Rate 10/30/23 02:34 10/30/23 05:52 10/30/23 07:45 Temperature 98.1 F Pulse Rate 70 77 72 Respiratory Rate 22 H 18 18 Blood Pressure 110/53 L Pulse Oximetry 94 Oxygen Delivery
--- NOTE | 2023-10-30 16:28 | PCRCNOTE ---
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 SHE HAS ENTERED DOCUMENTATION IN PROGRESS NOTES, WHICH I FAXED TO [facility] ALONG WITH FACE SHEET, ABGS, DIAGNOSIS, ETC. I SPOKE TO SOMEONE OTHER THAN TYRONE AT [facility] AND SHE WILL GO OVER FAXED PAPERWORK, AND LET US KNOW IF ALL LOOKS GOOD, WE WILL NEED A ORDER SIGNED. OVERNIGHT TONIGHT SHE WILL BE COMPLETING AN APNEA LINK ON HOME SETTINGS OF 3L IN CASE SHE IS DENIED COVERAGE OF NIV AND WILL NEED A BIPAP. CONTACT [facility] AT FOR UPDATES ON APPROVAL AND ANY OTHER QUESTIONS.
[2023-10-30] MEDS: PRAMIPEXOLE 0.5 MG TABLET PO (21:32)
[2023-10-30] MEDS: MIRTAZAPINE 15 MG TABLET PO (21:33)
[2023-10-30] MEDS: ATORVASTATIN 40 MG TABLET 80 MG PO (21:33)
[2023-10-30] MEDS: ARIPiprazole 2 MG TABLET PO (21:33)
[2023-10-30] MEDS: CITALOPRAM HYDROBROMIDE 20 MG TABLET PO (21:34)
[2023-10-30] MEDS: traZODone HCL 50 MG TABLET PO (22:43)
[2023-10-31] VITALS (9 sets, daily range): BP systolic 135–140; BP diastolic 73–83; PULSE 70–79; RESP 18–19; TEMP 36.3–36.5; O2SAT 91–100
[2023-10-31] MEDS: LEVALBUTEROL NEB 1.25 MG/3 ML INHALATION ×3 (02:02→15:16)
[2023-10-31] MEDS: oxyCODONE/ACETAMINOPHEN (*CRX) 5-325 MG TABLET 1 TABLET PO ×2 (05:37→13:04)
[2023-10-31] MEDS: oxyCODONE HCL (*CRX) 2.5 MG TAB IR PO ×2 (05:37→13:04)
[2023-10-31] MEDS: CHOLECALCIFEROL 1,000 UNITS TABLET 1000 UNITS PO (08:05)
[2023-10-31] MEDS: PANTOPRAZOLE 40 MG TABLET PO (08:05)
[2023-10-31] MEDS: PREGABALIN (*CRX) 50 MG CAPSULE 100 MG PO (08:05)
[2023-10-31] MEDS: predniSONE 20 MG TABLET 40 MG PO (08:05)
[2023-10-31] MEDS: DOCUSATE SODIUM 100 MG CAPSULE PO (08:05)
[2023-10-31] MEDS: MEMANTINE 5 MG TABLET PO (08:05)
[2023-10-31] MEDS: NITROFURANTOIN MONOHYD MACROCR 100 MG CAP PO (08:05)
[2023-10-31] MEDS: OPTI-GEN TAB 1 TABLET PO (08:05)
[2023-10-31] MEDS: ENOXAPARIN 40 MG/0.4 ML SYRINGE SUB-Q (08:06)
[2023-10-31] MEDS: FUROSEMIDE 20 MG TABLET PO (08:06)
[2023-10-31] MEDS: TOLNAFTATE 1% POWDER 45 GM BTL 1 APPLIC TOPICAL (08:06)
[2023-10-31] MEDS: FLUTICASONE/UMECLIDIN/VILANTER 100-62.5-25 MCG ELLIPTA 1 PUFF INHALATION (08:41)
--- NOTE | 2023-10-31 13:22 | PM.PNPUL ---
Progress Note: A&P Assessment and Plan (1) COPD (chronic obstructive pulmonary disease): Code(s): J44.9 - Chronic obstructive pulmonary disease, unspecified Status: Acute Assessment and Plan: Severe COPD by history; on supplemental O2 for 5 years; no smoking for 3-4 yr, quit 2019; coughs most days, has scant sputum, short of breath with activities but activity limited by hip fracture and short right leg, chronic pain. Often in wheelchair. 10/27/23 VBG =pH 7.30 with PCO2 78. CXR = mild diffuse reticular opacities c/w chronic changes and right elevation of hemidiaphragm. She had wheezing on presentation, better with steroids. No sputum to test for pathogens. No DVT on Dopplers. Echo showed normal systolic function, EF 70%. She was followed by JULIA Ortega, at [facility]. Ms Matthews has left the practice, pt needs to follow up with someone, and agrees to see us in the office. I reviewed records form [facility] cardiology notes, Dr Rosa Maria Polanco's visit August 09; patient did not have atrial fib. I spoke with a [facility] field representative in [employer]- stating that the patient had no PFTs, no walk studies, no other information aside from lab testing that was faxed over. 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 PFTs from [facility] are not available to review. [facility] said that Darcie Matthews left the practice, and no notes are available. This is not standard. The practitioner left however the notes are property of the practice. [facility] did not provide health information that is needed to provide optimal care. The patient does not have a cell phone, does not have technological skills. dose not have patient portal access. (2) Acute on chronic respiratory failure with hypoxia and hypercapnia: Code(s): J96.21 - Acute and chronic respiratory failure with hypoxia; J96.22 - Acute and chronic respiratory failure with hypercapnia Status: Acute Assessment and Plan: Uses O2 at home, 2L in the day, 3 L with sleep. She uses Trelegy 100 daily and p.r.n. albuterol, about twice a day. No intubations. She is on 2 L/min in the day, saturation is 95-97%, can be weaned. She does not need a formal walk study. This saturation is stable on 1 L/min at rest. (3) Shortness of breath: Code(s): R06.02 - Shortness of breath Status: Acute Assessment and Plan: Increasing shortness of breath over the last several weeks, better after admission. She does not have evidence of an infectious process this admission. She has new A-fib with RVR on admission, rate now controlled, no decreased LV function. Atrial fib may better controlled with non invasive ventilator use. Plan She is a candidate for ventilator for chronic respiratory failure due to COPD which will be used nocturnally and in the daytime as required. BiPAP has been considered, attempted, and has been ruled out. She remains short of breath at times in the day, will need a noninvasive ventilator for nighttime use due to COPD and chronic hypercapnic hypoxemic respiratory failure. She may also use in the daytime is needed for shortness of breath as needed. She wants to avoid recurrent hospital admissions by managing her acute on chronic respiratory failure with non invasive ventilator. She understands importance of using this with sleep and in the day as needed. She lives at [facility], is able to get to dining room for meals, has support. She uses O2 around the clock, 2 L in the day, 3 L with sleep, has a nebulizer for emergency use. plan: OK To discharge to [facility] today. 1) Continue O2 to 1 L at rest and 2 L with exertion and sleep. 2) Non invasi
[2023-10-31] MEDS: polyethylene glycoL 3350 17 GM POWD.PACK PO (13:25)
--- NOTE | 2023-10-31 13:38 | ECG_ITS ---
Test Date: 2023-10-31 13:50:35 Measurements Intervals [place] Rate: 86 P: 64 AR: 159 QRS: 15 QRSD: 134 T: -17 QT: 369 QTc: 443 Interpretive Statements SINUS RHYTHM WITH OCCASIONAL SUPRAVENTRICULAR PREMATURE COMPLEXES RIGHT BUNDLE BRANCH BLOCK BASELINE ARTIFACT- I, II, AVR, AVL, AVF, V4-V6 ABNORMAL ECG Compared to ECG 10/27/2023 20:34:31 HEART RATE HAS DECREASED Electronically Signed On 10-31-2023 15:19:56 CDT by Cristian Sanchez D.O.
--- NOTE | 2023-10-31 15:53 | PM.DS ---
DS: Admitting Diagnosis Discharge Date 10/31/23 Admitting Diagnosis Shortness of breath DS: Discharge Diagnosis Discharge Diagnosis (1) Chronic obstructive pulmonary disease: Code(s): J44.9 - Chronic obstructive pulmonary disease, unspecified Status: Acute (2) Chronic respiratory failure with hypoxia and hypercapnia: Code(s): J96.11 - Chronic respiratory failure with hypoxia; J96.12 - Chronic respiratory failure with hypercapnia Status: Acute (3) Paroxysmal atrial fibrillation: Code(s): I48.0 - Paroxysmal atrial fibrillation Status: Acute (4) Depression with anxiety: Code(s): F41.8 - Other specified anxiety disorders Status: Chronic (5) Obstructive sleep apnea: Code(s): G47.33 - Obstructive sleep apnea (adult) (pediatric) Status: Acute DS: Summary Hospital Course Reason for hospitalization: 88yo female with chronic respiratory failure on 2 L nasal cannula, COPD, ROSALIA, pAFib no longer and anticoagulation following a recent fall, diastolic dysfunction, HTN and DVT presented to the ED via EMS from [facility] for evaluation of shortness of breath. Please see H&P for details. Hospital Course: Patient presents with shortness of breath. VBG showing pH 7.30 with PCO2 78. CXR showing mild diffuse reticular opacities c/w chronic changes and right elevation of hemidiaphragm. Patient had wheezing on admission. Treated with bronchodilators. She was given 1 dose of Decadron and Solu-Medrol. Not having productive cough and chest x-ray not consistent with pneumonia so antibiotics were held. Lower extremity venous Doppler was negative DVT. Echo showing EF 70% with Grade I diastolic dysfunction. Pulmonary consulted. She was feeling better but not back to baseline so Prednisone added with benefit. She is also now wearing the BiPAP which also is probably helping We continued her Trelegy. Patient with paroxysmal atrial fibrillation. She has frequent PACs and sinus arrhythmia as well. Heart rate is stable. She is not on rate-controlling agents. She is not on anticoagulation due to falls. Patient tolerating her BiPAP at night. Pulmonary made arrangements for patient to have BiPAP at the facility. She overall did well and was able to be discharged on 10/31/23. Status at Discharge Cognitive/behavioral status at discharge: Stable Time Spent with Patient Time attestation: Total time spent providing and/or coordinating discharge services: 35 minutes Time spent: Greater than 30 minutes Exam Narrative: AF 97.7 140/74 70 18 99% 1L Gen - NARD Chest - Distant but clear BS. nml RR CV - irregularly irregular Abd - Soft, NT/ND, Positive BS Ext - no pedal edema Psych - Nml mood and affect Skin - Warm and dry Discharge Plan Discharge Attending physician on discharge: Myron Harris Consulting providers: Beth Gurrola Discharging Clinician: Myron Harris Anticipated Discharge Date/Time: 10/31/23 16:07 Patient Disposition: [facility] Activity: as tolerated Diet: heart healthy Discharge Instructions: Continue O2 to 1 L at rest and 2 L with exertion and sleep. Non invasive ventilator with night time sleep and in the day with naps and as needed for shortness of breath with 2 L/min. Primary settings : AVAPS-AE with Target Tidal Volume TV 350 ml, Max pressure 20; PS Min 5; PS Max 10; EPAP Min 5; EPAP Max 10. Bleed in 2 L/min with sleep Take precautions to avoid falls. Rise slowly from a lying or sitting position. Pause before standing or walking. Contact your doctor or call 911 and come to the Emergency Room if you have increasing shortness of breath or other worrisome symptoms. Avoid NSAIDs (ibuprofen, naproxen, Aleve). Tylenol is safe to take. Follow-up with your primary care provider in 1-2 weeks. Please call for appointment. Follow-up with pulmonary within 2 weeks after discharge. Please call for an appointment Th
== END 2023-10-31 16:50 | DRG 191 ==
LOC: ANHED 17:02 → ANH3MEDSUR 18:10
PROVIDERS: Physician Assistant; Admitting Provider Internal Medicine; Emergency Provider Emergency Medicine; PCP Physician Assistant; Visit Provider Internal Medicine
DX: J44.1 Chronic obstructive pulmonary disease with (acute) exacerbation (principal); J96.11 Chronic respiratory failure with hypoxia; J96.12 Chronic respiratory failure with hypercapnia; I48.0 Paroxysmal atrial fibrillation; K21.9 Gastro-esophageal reflux disease without esophagitis; K44.9 Diaphragmatic hernia without obstruction or gangrene; D50.9 Iron deficiency anemia, unspecified; R25.1 Tremor, unspecified; G47.33 Obstructive sleep apnea (adult) (pediatric); G89.4 Chronic pain syndrome; F32.A Depression, unspecified; F41.9 Anxiety disorder, unspecified; Z99.81 Dependence on supplemental oxygen; Z86.718 Personal history of other venous thrombosis and embolism; Z98.1 Arthrodesis status; Z87.891 Personal history of nicotine dependence
CPT/HCPCS: 36415; 71045; 80048; 80053; 82607; 82728; 82746; 82803; 83540; 83550; 83735; 83880; 84443; 85025; 85027; 85055; 93005; 93306; 93970; 94003; 94640; 94660; 94667; 96372; 96374; 96375; 97110; 97161; 97165; 97530; 99285; A9270; G0378; J1100; J1650; J2919; J7512

== ENCOUNTER 2023-12-05 07:27 | Inpatient (IN) | payer MEDICARE, SELFPAY ==
[2023-12-05] VITALS (43 sets, daily range): BP systolic 73–114; BP diastolic 47–75; PULSE 66–125; RESP 14–25; TEMP 36.4–36.9; O2SAT 67–100; BMI 33.5
--- NOTE | ~2023-12-05 | XR_ITS ---
EXAMINATION: XR chest 2V DATE: 12/05/2023 08:30 INDICATION: Shortness of breath. Cough. TECHNIQUE: Frontal and lateral views of the chest were obtained. COMPARISON: Chest single view 10/27/2023, CT abdomen and pelvis 09/02/2023 FINDINGS: There are airspace opacities at the lung bases. No pleural effusion or pneumothorax. The he art size is normal. There is a moderate-sized hiatal hernia. There are chronic fractures of T11-L2 ve rtebral bodies with changes of vertebroplasty at T12. Surgical clips in the right upper quadrant are likely from cholecystectomy. There are changes of posterior fusion procedure in cervical spine. There is an old healed fracture of proximal left humerus. IMPRESSION: 1. Airspace opacities at the lung bases, consistent with atelectasis versus pneumonia. 2. Moderate-sized hiatal hernia. Reviewed, dictated and finalized at location A. IMPRESSION: 1. Airspace opacities at the lung bases, consistent with atelectasis versus pne umonia. 2. Moderate-sized hiatal hernia.
[2023-12-05 08:06] LABS: Basophils Percent Auto 0.2 % (0.2-1.2); Eosinophils Percent Auto 0.1 % (0-4.4); Hematocrit 43.3 % (37.0-47.0); Hemoglobin 12.9 g/dL (12.0-15.0); Immature Granulocyte Absolute 0.09 K/mm3 (0.00-0.031); Immature Granulocyte Percent A 0.5 % (0-0.5); Lymphocytes Absolute Auto 1.25 K/mm3 (0.9-3.2); Lymphocytes Percent Auto 7.1 % (18.3-44.2); Mean Corpuscular HGB Conc 29.8 g/dl (32-36); Mean Corpuscular Hemoglobin 27.9 pg (26-34); Mean Corpuscular Volume 93.7 fl (80-100); Mean Platelet Volume 10.1 fl (7.4-10.4); Monocytes Absolute Auto 0.8 K/mm3 (0.1-0.6); Monocytes Percent Auto 4.5 % (2.6-8.5); Neutrophils Absolute Auto 15.4 K/mm3 (1.3-6.7); Neutrophils Percent Auto 87.6 % (45.5-73.1); Platelet Count Result 172 k/mm3 (150-375); Red Blood Count 4.62 M/mm3 (4.2-5.4); Red Cell Distribution Width 14.4 % (11.5-14.5); White Blood Count 17.6 K/mm3 (4.5-10.0)
[2023-12-05 08:22] LABS: Alanine Aminotransferase 22 U/L (6-35); Albumin Level 3.8 g/dL (3.5-5.1); Alkaline Phosphatase 77 U/L (38-126); Aspartate Amino Transferase 30 U/L (14-36); Bilirubin,Total 1.1 mg/dL (0.2-1.3); Blood Urea Nitrogen 31 mg/dL (7-17); Calcium 8.4 mg/dL (8.4-10.2); Carbon Dioxide > 40 mmol/L (22-30); Chloride 94 mmol/L (98-107); Estimated Glomerular Filt Rate 52; Glucose 114 mg/dL (65-110); Potassium 4.2 mmol/L (3.4-5.0); Sodium 141 mmol/L (137-145)
[2023-12-05 08:38] LABS: Hypochromasia 1+; Platelet Estimate Adequate (Adequate); Schistocytes None Seen
--- NOTE | 2023-12-05 09:10 | ED.SOB ---
HPI - SOB/Dyspnea General Chief Complaint: Shortness of Breath/Dyspnea Stated Complaint: ?PNA Time Seen by Provider: 12/05/23 08:09 History of Present Illness HPI Narrative: Patient is an 88-year-old female with a history of COPD on 2 L presenting with cough and shortness of breath. Patient states that she has been doing well in terms of her COPD and her qualitative executive researcher recently decreased her supplemental oxygen to 1-2 L. States that she has been using her CPAP at night. Over the last week she has developed a worsening cough. States it is nonproductive. Also feels short of breath. She denies any new pain. No further complaints. Related Data Home Medications Medication Instructions Recorded Confirmed atorvastatin 80 mg tablet 80 mg PO HS 03/04/22 12/05/23 memantine 5 mg tablet 5 mg PO Q12H 03/04/22 12/05/23 pramipexole 0.5 mg tablet (Mirapex) 0.5 mg PO HS 03/07/22 12/05/23 ferrous sulfate 325 mg (65 mg 325 mg PO Q48H 10/01/22 12/05/23 iron) tablet pregabalin 100 mg capsule 100 mg PO Q12H 10/01/22 12/05/23 albuterol sulfate 2.5 mg/3 mL 2.5 mg inhalation Q8H PRN wheezing 10/13/22 12/05/23 (0.083 %) solution for nebulization cholecalciferol (vitamin D3) 25 25 mcg PO DAILY 10/13/22 12/05/23 mcg (1,000 unit) capsule (Vitamin D3) citalopram 20 mg tablet 20 mg PO QHS 02/20/23 12/05/23 guaifenesin 600 mg tablet, 600 mg PO Q12HR PRN Congestion 09/01/23 12/05/23 extended release 12 hr (Mucus Relief ER) lidocaine 4 % topical patch 1 patch transdermal DAILY PRN Back 09/01/23 12/05/23 (Lidocaine Pain Relief) Pain aripiprazole 2 mg tablet 2 mg PO QHS 09/17/23 12/05/23 bisacodyl 5 mg tablet,delayed 5 mg PO DAILY PRN constipation 09/17/23 12/05/23 release furosemide 20 mg tablet 20 mg PO DAILY 09/17/23 12/05/23 midodrine 5 mg tablet 5 mg PO BID 11/16/23 12/05/23 vit C 250 mg-vit E 90 mg-zinc 40 1 tablet PO DAILY 12/05/23 12/05/23 mg-copper 1 [id number] capsule (PreserVision AREDS-2) Allergies Allergy/AdvReac Type Severity Reaction Status Date / Time chlorpromazine Allergy Unknown Unknown Verified 10/27/23 13:58 [From Thorazine] diphenhydramine Allergy Unknown Unknown Verified 10/27/23 13:58 [From Benadryl] meperidine [From Demerol] Allergy Unknown Unknown Verified 10/27/23 13:58 rofecoxib [From Vioxx] Allergy Unknown Unknown Verified 10/27/23 13:58 zolpidem [From Ambien] Allergy Unknown Unknown Verified 10/27/23 13:58 Review of Systems Review of Systems: All systems reviewed & are unremarkable except as noted in HPI and below PMFSH Past Medical History Medical History Chronic GERD Chronic obstructive pulmonary disease Chronic pain syndrome Chronic respiratory failure with hypoxia and hypercapnia Deep venous thrombosis Depression with anxiety Heart failure with preserved ejection fraction Hiatal hernia Obstructive sleep apnea Paroxysmal atrial fibrillation Surgical History Surgical History History of bladder repair surgery History of breast surgery History of cataract extraction History of cholecystectomy History of colonoscopy History of esophagogastroduodenoscopy History of foot surgery History of fusion of cervical spine History of hernia repair History of hysterectomy History of spinal surgery History of tonsillectomy Family History Family History Father Bladder cancer Mother Hypertension Depression Sibling Asthma Hypertension Depression Grandparent Hypertension Heart disease Cerebrovascular accident Grandparent Alcoholism Lung cancer Social History Social History Social History: Surrogate medical decision maker: Tyrone Bullard, karissa. Code status: Full code. Smoking packs per day: 1 Smoking cigarettes per day: 20.0 Years smoked:
[2023-12-05 09:25] LABS: Prothrombin Time 13.1 Seconds (11.1-14.7)
[2023-12-05 09:26] LABS: Partial Thromboplastin Time 25.9 Seconds (22.3-36.8)
[2023-12-05] MEDS: IPRATROPIUM BR 0.02% INH SOLN 0.5 MG/2.5 ML VIAL INHALATION (09:27)
[2023-12-05] MEDS: ALBUTEROL SULFATE NEB 2.5 MG/3 ML INH 10 MG INHALATION (09:27)
[2023-12-05 09:35] LABS: Fractional Inspired Oxygen 32 %; HCO3 VBG 38.8 mEq/l (24.0-30.0); PO2 VBG 28.7 mmHg (35.0-45.0); pH VBG 7.373 (7.300-7.400)
[2023-12-05 09:38] LABS: Device NASAL CANNULA; PCO2 VBG 68.2 mmHg (42.0-48.0)
[2023-12-05 09:53] LABS: Lactic Acid Reflex 1.4 mmol/L (0.7-2.0)
[2023-12-05] MEDS: methylPREDNISolone SOD SUCC 125 MG VIAL IV PUSH ×2 (09:54→17:51)
[2023-12-05] MEDS: CEFEPIME 2 GM/NS 50 ML 2 GM/50 ML BAG IVPB ×2 (09:54→21:33)
[2023-12-05 10:19] LABS: Influenza A QL RT-PCR Negative (Negative); Influenza B QL RT-PCR Negative (Negative); RSV RNA, RT-PCR Negative (Negative); SARS-CoV-2 RNA PCR Negative (Negative)
[2023-12-05] MEDS: VANCOMYCIN 1,500 MG/NS 500 ML 1,500 MG/500 ML BAG 250 MG IVPB (10:40)
[2023-12-05 12:58] LABS: MRSA (PCR) NOT DETECTED (NOT DETECTE)
[2023-12-05 13:06] LABS: Add Urine Microscopic? YES; Appearance Urine Clear (Clear); Bacteria Urine None Seen /hpf; Bilirubin Urine Negative (Negative); Blood Urine Negative (Negative); Color Urine Yellow (Yellow); Glucose Urine UA Negative (Negative); Ketones Urine Negative (Negative); Leukocyte Esterase Ur Negative LEU/UL (Negative); Nitrate Urine Negative (Negative); Non Pathogenic Casts 0-2; Protein Urine Trace mg/dL (Negative); RBC Urine 0-2 /hpf (0-2); Specific Grav Ur 1.024 (1.001-1.035); Squamous Epithelial Cell Urine None Seen /hpf (Few); WBC Urine 0-5 /hpf (0-3)
--- NOTE | 2023-12-05 14:26 | PM.IMHP ---
H&P: HPI History of Present Illness Date/Time: 12/05/23 14:26 Chief Complaint: Shortness of Breath Narrative: Ms. Bullard is a 88-year-old female with chronic respiratory failure managed by silk spreader on 1-2 L NC home oxygen, COPD, ROSALIA, proximal atrial fibrillation not on anticoagulation diastolic dysfunction, HTN, hyperlipidemia, depression, presented to the emergency room via EMS from the [facility] within ongoing complaint of SOB, moderate fatigue that worsened over the past day. Patient reports yesterday she was at [employer], walking around when she became very weak and shaky. Pt states that she has been managed by her silk spreader for her COPD reporting that recently they lowered her home 02, to 1-2 L/NC. She reports she has had an ongoing non-productive cough. She denies any fever, chills, N/V, chest pain or abdominal pain. In the ED: She was afebrile, hypotensive b/p: 78/59, as you are 93% 2 L, heart rate 70 respiratory 20, her initial labs revealed WBC 17.6 VBG 68.2 20 point HC03 38.8 CXR airspace opacities at the lung bases, consistent atelectasis versus PNA, 1st dose of cefepime IVP, vancomycin IVP, IV fluids given and Solu-Medrol 120 IV and breathing txs given in the ER, [facility] Past Medical History Medical History Chronic GERD Chronic obstructive pulmonary disease Chronic pain syndrome Chronic respiratory failure with hypoxia and hypercapnia Deep venous thrombosis Depression with anxiety Heart failure with preserved ejection fraction Hiatal hernia Obstructive sleep apnea Paroxysmal atrial fibrillation Surgical History Surgical History History of bladder repair surgery History of breast surgery History of cataract extraction History of cholecystectomy History of colonoscopy History of esophagogastroduodenoscopy History of foot surgery History of fusion of cervical spine History of hernia repair History of hysterectomy History of spinal surgery History of tonsillectomy Family History Family History Father Bladder cancer Mother Hypertension Depression Sibling Asthma Hypertension Depression Grandparent Hypertension Heart disease Cerebrovascular accident Grandparent Alcoholism Lung cancer Social History Social History Social History: Surrogate medical decision maker: Tyrone Bullard, son. Code status: Full code. Smoking packs per day: 1 Smoking cigarettes per day: 20.0 Years smoked: 35 Smoking pack-years: 35.00 Smoking status: Former smoker Second hand tobacco smoke exposure: No Alcohol intake: never Drinks per week: 1 Substance use: never Substance use type: does not use Do You Feel Safe in your Home?: Yes Lack of Transportation: No Lack of Food: Never True Current Housing: I Have Housing Concerned About Future Housing: No Difficulty Paying Gas/Electric Bills: No Difficulty Paying for Meds: No Currently Unemployed: No Education: Associate Degree Difficulty w/ Childcare or Family Care: No Additional living arrangements comments: with 3 children. Lives at [facility]. 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 Spiritual care concerns: No Meds Home Medications and Allergies Home Medications Medication Instructions Recorded Confirmed Type atorvastatin 80 mg tablet 80 mg PO HS 03/04/22 10/27/23 History memantine 5 mg tablet 5 mg PO BID 03/04/22 10/27/23 History pramipexole 0.5 mg tablet (Mirapex) 0.5 mg PO HS 03/07/22 10/27/23 History ferrous sulfate 325 mg (65 mg 325 mg PO Q48H 10/01/22 10/27/23 History iron) tablet pregabalin 100 mg capsule 100 mg PO BID 10/01/22 10/27/23 History albuterol sulfate 2.5 mg/3 mL 2.5 mg inhalation Q8H PRN wheezing 10/13/22 10/27/23 History
--- NOTE | 2023-12-05 14:47 | ADMGEN ---
This patient, Jazmin Bullard, was admitted to IMU Room 200-01. Patient/family oriented to hospital policies and general routines including ID bracelet, bed and alarms, visiting hours, pain management, procedures, bathroom and other care routines, personal items, smoking policy, room service/diet, and visiting hours. Information on how to activate the Rapid Response Team has been discussed. Patient/Family are encouraged to report perceived risks to care and to ask questions if they do not understand what they are told or what they should do.
[2023-12-05] MEDS: oxyCODONE HCL (*CRX) 2.5 MG TAB IR PO (17:49)
[2023-12-05] MEDS: guaiFENesin 12 HR 600 MG TABCR PO (17:49)
[2023-12-05] MEDS: oxyCODONE/ACETAMINOPHEN (*CRX) 5-325 MG TABLET 1 TABLET PO (17:50)
[2023-12-05] MEDS: MIRTAZAPINE 15 MG TABLET PO (21:31)
[2023-12-05] MEDS: ATORVASTATIN 40 MG TABLET 80 MG PO (21:31)
[2023-12-05] MEDS: PRAMIPEXOLE 0.5 MG TABLET PO (21:32)
[2023-12-05] MEDS: PREGABALIN (*CRX) 50 MG CAPSULE 100 MG PO (21:32)
[2023-12-05] MEDS: ARIPiprazole 2 MG TABLET PO (21:32)
[2023-12-05] MEDS: MEMANTINE 5 MG TABLET PO (21:32)
[2023-12-05] MEDS: CITALOPRAM HYDROBROMIDE 20 MG TABLET PO (21:32)
[2023-12-06] VITALS (20 sets, daily range): BP systolic 99–146; BP diastolic 52–70; PULSE 64–116; RESP 15–19; TEMP 36.4–36.9; O2SAT 92–100
[2023-12-06] MEDS: oxyCODONE HCL (*CRX) 2.5 MG TAB IR PO ×4 (00:38→22:12)
[2023-12-06] MEDS: oxyCODONE/ACETAMINOPHEN (*CRX) 5-325 MG TABLET 1 TABLET PO ×4 (00:38→22:12)
[2023-12-06] MEDS: methylPREDNISolone SOD SUCC 125 MG VIAL IV PUSH ×2 (02:45→09:15)
[2023-12-06 04:47] LABS: Basophils Percent Auto 0.1 % (0.2-1.2); Hematocrit 42.1 % (37.0-47.0); Hemoglobin 12.4 g/dL (12.0-15.0); Immature Granulocyte Absolute 0.07 K/mm3 (0.00-0.031); Immature Granulocyte Percent A 0.7 % (0-0.5); Lymphocytes Percent Auto 8.6 % (18.3-44.2); Mean Corpuscular HGB Conc 29.5 g/dl (32-36); Mean Corpuscular Hemoglobin 27.4 pg (26-34); Mean Corpuscular Volume 92.9 fl (80-100); Mean Platelet Volume 10.7 fl (7.4-10.4); Monocytes Absolute Auto 0.1 K/mm3 (0.1-0.6); Monocytes Percent Auto 0.5 % (2.6-8.5); Neutrophils Absolute Auto 9.4 K/mm3 (1.3-6.7); Neutrophils Percent Auto 90.1 % (45.5-73.1); Platelet Count Result 154 k/mm3 (150-375); Red Blood Count 4.53 M/mm3 (4.2-5.4); Red Cell Distribution Width 14.3 % (11.5-14.5); White Blood Count 10.4 K/mm3 (4.5-10.0)
[2023-12-06] MEDS: IPRATROPIUM BR 0.02% INH SOLN 0.5 MG/2.5 ML VIAL INHALATION (05:01)
[2023-12-06] MEDS: ALBUTEROL SULFATE NEB 2.5 MG/3 ML INH INHALATION (05:01)
[2023-12-06 05:32] LABS: Procalcitonin 0.1 ng/mL
[2023-12-06 07:45] LABS: Alanine Aminotransferase 26 U/L (6-35); Albumin Level 4.1 g/dL (3.5-5.1); Alkaline Phosphatase 76 U/L (38-126); Anion Gap 9 mmol/L (4-12); Aspartate Amino Transferase 35 U/L (14-36); Bilirubin,Total 0.7 mg/dL (0.2-1.3); Blood Urea Nitrogen 28 mg/dL (7-17); Calcium 8.2 mg/dL (8.4-10.2); Carbon Dioxide 34 mmol/L (22-30); Chloride 96 mmol/L (98-107); Estimated Glomerular Filt Rate > 60; Glucose 148 mg/dL (65-110); Potassium 4.1 mmol/L (3.4-5.0); Sodium 139 mmol/L (137-145)
[2023-12-06 07:59] LABS: CRP 12.8 mg/dL (<1.0)
[2023-12-06] MEDS: FLUTICASONE/UMECLIDIN/VILANTER 100-62.5-25 MCG ELLIPTA 1 PUFF INHALATION (07:59)
[2023-12-06] MEDS: CHOLECALCIFEROL 1,000 UNITS TABLET 1000 UNITS PO (08:59)
[2023-12-06] MEDS: PREGABALIN (*CRX) 50 MG CAPSULE 100 MG PO ×2 (09:14→20:56)
[2023-12-06] MEDS: CEFEPIME 2 GM/NS 50 ML 2 GM/50 ML BAG IVPB ×2 (09:14→20:57)
--- NOTE | 2023-12-06 09:14 | ECG_ITS ---
Test Date: 2023-12-06 08:59:07 Measurements Intervals [place] Rate: 83 P: 53 FL: 175 QRS: 8 QRSD: 145 T: -23 QT: 390 QTc: 459 Interpretive Statements SINUS RHYTHM WITH OCCASIONAL SUPRAVENTRICULAR PREMATURE COMPLEXES RIGHT BUNDLE BRANCH BLOCK [120+ ms QRS DURATION, UPRIGHT V1, 40+ ms S IN I/aVL/V4/V5/V6] ABNORMAL ECG Compared to ECG 10/31/2023 13:50:35 No significant changes Electronically Signed On 12-08-2023 07:02:03 CDT by Juvenal Arechiga M.D.
[2023-12-06] MEDS: DOCUSATE SODIUM 100 MG CAPSULE PO (09:15)
[2023-12-06] MEDS: OPTI-GEN TAB 1 TABLET PO (09:15)
[2023-12-06] MEDS: ENOXAPARIN 40 MG/0.4 ML SYRINGE SUB-Q (09:15)
[2023-12-06] MEDS: MEMANTINE 5 MG TABLET PO ×2 (09:15→20:56)
[2023-12-06] MEDS: PANTOPRAZOLE 40 MG TABLET PO (09:15)
[2023-12-06] MEDS: FUROSEMIDE 20 MG TABLET PO (09:15)
[2023-12-06] MEDS: MIDODRINE HCL 2.5 MG TABLET 5 MG PO ×2 (09:15→18:00)
[2023-12-06] MEDS: guaiFENesin 12 HR 600 MG TABCR PO (09:16)
[2023-12-06 09:49] LABS: Troponin I < 0.012 ng/mL (0.000-0.034)
--- NOTE | 2023-12-06 10:13 | PM.IMPN ---
Progress Note: A&P Assessment and Plan (1) Sepsis: Code(s): A41.9 - Sepsis, unspecified organism Status: Acute Assessment and Plan: Meets SIRS criteria: WBC, tachycardia - lactic acid: 1.4 - suspected source: pneumonia - blood cultures drawn on 12/04: NGTD - UA: non concerning for infection - CXR:- CXR: Airspace opacities at the lung bases, consistent with atelectasis versus pneumonia. Moderate-sized hiatal hernia. - started on: Cefepime 2gm q12 hrs /vancomycin q 36hrs IVPB, transitioned to (2) Acute on chronic respiratory failure with hypoxia and hypercapnia: Code(s): J96.21 - Acute and chronic respiratory failure with hypoxia; J96.22 - Acute and chronic respiratory failure with hypercapnia Status: Acute Assessment and Plan: -chronic respiratory failure with hypoxia and hypercarbia. - patient follows pulmonology Dr. Gurrola, last seen on 11/16/23 - baseline O2 is 1 L at rest, 2 L with exertion and sleep. Patient was initially requiring 3 L, but now remains on baseline 2 L. -encourage CPAP use at night (3) Pneumonia: Code(s): J18.9 - Pneumonia, unspecified organism Status: Acute Assessment and Plan: - CXR: Airspace opacities at the lung bases, consistent with atelectasis versus pneumonia. Moderate-sized hiatal hernia. - Complicating Factors: COPD on chronc O2 - started on: Cefepime 2gm q12 hrs /vancomycin q 36hrs IVPB - Viral PCR: negative for Flu/COVID/RSV - Send sputum cultures - chronic, baseline O2 1L at rest and 2 L with ambulation and overnight. Keep SpO2 greater than 88% - supportive treatment tyl and ibu prn nebs prn incentive spirometry - trend labs - Monitor vital signs, I&Os, neuro status and patient is a fall risk - Follow WBC, serum electrolytes, temperature curves and cultures (4) Heart failure with preserved ejection fraction: Code(s): I50.30 - Unspecified diastolic (congestive) heart failure Status: Acute Assessment and Plan: Last echo revealed EF 70% with grade 1 diastolic dysfunction -continue telemetry monitoring (5) COPD (chronic obstructive pulmonary disease): Code(s): J44.9 - Chronic obstructive pulmonary disease, unspecified Status: Acute Assessment and Plan: Chronic, does not appear to be in acute exacerbation patient had been started on 125 mg solumedrol TID on admission, will taper this dose to 80 mg TID starting tonight with plan of continuing taper continue telemetry monitoring, continue oxygen titration (6) Paroxysmal atrial fibrillation: Code(s): I48.0 - Paroxysmal atrial fibrillation Status: Acute Assessment and Plan: -continue telemetry monitoring, as tolerated -rate is stable, not requiring rate control agents -patient is not on anticoagulation due to falls (7) Depression with anxiety: Code(s): F41.8 - Other specified anxiety disorders Status: Chronic Assessment and Plan: -patient with a general sense of feeling unwell -history of underlying cognitive issues and is on Namenda currently -continue Namenda, Abilify, Celexa and Remeron Time Spent With Patient Time with patient: 25 - 35 minutes Subjective Date/time seen: 12/06/23 10:13 Interval history: 88-year-old female with chronic respiratory failure on 2 L nasal cannula, chronic obstructive pulmonary disease, obstructive sleep apnea, paroxysmal atrial fibrillation no longer and anticoagulation following a recent fall, diastolic dysfunction, hypertension, hyperlipidemia, depression, anxiety, tremors, iron deficiency anemia, and deep venous thrombosis presented to the emergency department via EMS from [facility] for evaluation of shortness of breath. Patient is pleasant sitting up in her chair. She states she is feeling better than last night and her shortness of breath has improved though is still noticeably present. She also endorses an intermittent productive cough. She denies chest pain and palp
[2023-12-06] MEDS: methylPREDNISolone SOD SUCC 125 MG VIAL 80 MG IV PUSH (20:54)
[2023-12-06] MEDS: ARIPiprazole 2 MG TABLET PO (20:54)
[2023-12-06] MEDS: ATORVASTATIN 40 MG TABLET 80 MG PO (20:56)
[2023-12-06] MEDS: CITALOPRAM HYDROBROMIDE 20 MG TABLET PO (20:56)
[2023-12-06] MEDS: PRAMIPEXOLE 0.5 MG TABLET PO (20:56)
[2023-12-06] MEDS: MIRTAZAPINE 15 MG TABLET PO (20:57)
[2023-12-06] MEDS: traZODone HCL 25 MG TABLET PO (20:57)
[2023-12-06] MEDS: VANCOMYCIN 1,000 MG/NS 250 ML 1,000 MG/250 ML BAG 250 MG IVPB (20:58)
[2023-12-07] VITALS (16 sets, daily range): BP systolic 99–151; BP diastolic 54–78; PULSE 52–106; RESP 16–20; TEMP 36.4–37.1; O2SAT 88–100
[2023-12-07] MEDS: oxyCODONE HCL (*CRX) 2.5 MG TAB IR PO ×4 (04:38→23:13)
[2023-12-07] MEDS: methylPREDNISolone SOD SUCC 125 MG VIAL 80 MG IV PUSH ×2 (04:38→11:04)
[2023-12-07] MEDS: oxyCODONE/ACETAMINOPHEN (*CRX) 5-325 MG TABLET 1 TABLET PO ×4 (04:39→23:12)
[2023-12-07 04:58] LABS: Hematocrit 36.6 % (37.0-47.0); Hemoglobin 11.3 g/dL (12.0-15.0); Immature Granulocyte Absolute 0.11 K/mm3 (0.00-0.031); Lymphocytes Absolute Auto 0.63 K/mm3 (0.9-3.2); Lymphocytes Percent Auto 5.7 % (18.3-44.2); Mean Corpuscular HGB Conc 30.9 g/dl (32-36); Mean Corpuscular Hemoglobin 28.4 pg (26-34); Mean Platelet Volume 10.9 fl (7.4-10.4); Monocytes Absolute Auto 0.3 K/mm3 (0.1-0.6); Monocytes Percent Auto 2.3 % (2.6-8.5); Platelet Count Result 158 k/mm3 (150-375); Red Blood Count 3.98 M/mm3 (4.2-5.4); Red Cell Distribution Width 14.6 % (11.5-14.5)
[2023-12-07 05:24] LABS: Alanine Aminotransferase 30 U/L (6-35); Albumin Level 3.4 g/dL (3.5-5.1); Alkaline Phosphatase 76 U/L (38-126); Anion Gap 5 mmol/L (4-12); Aspartate Amino Transferase 34 U/L (14-36); Bilirubin,Total 0.2 mg/dL (0.2-1.3); Blood Urea Nitrogen 31 mg/dL (7-17); Calcium 7.9 mg/dL (8.4-10.2); Carbon Dioxide 33 mmol/L (22-30); Chloride 100 mmol/L (98-107); Estimated Glomerular Filt Rate 52; Glucose 157 mg/dL (65-110); Sodium 138 mmol/L (137-145)
[2023-12-07 05:34] LABS: Anisocytosis 1+; Large Platelets Present; Platelet Clumps Present; Platelet Estimate Adequate (Adequate); Schistocytes None Seen
[2023-12-07] MEDS: FLUTICASONE/UMECLIDIN/VILANTER 100-62.5-25 MCG ELLIPTA 1 PUFF INHALATION (08:08)
--- NOTE | 2023-12-07 08:08 | PM.IMPN ---
Progress Note: A&P Assessment and Plan (1) Sepsis: Code(s): A41.9 - Sepsis, unspecified organism Status: Acute Assessment and Plan: Meets SIRS criteria: WBC, tachycardia - lactic acid: 1.4 - suspected source: pneumonia - blood cultures drawn on 12/04: NGTD - UA: non concerning for infection - CXR:- CXR: Airspace opacities at the lung bases, consistent with atelectasis versus pneumonia. Moderate-sized hiatal hernia. - started on: Cefepime 2gm q12 hrs, vancomycin DC given neg MRSA nares (2) Acute on chronic respiratory failure with hypoxia and hypercapnia: Code(s): J96.21 - Acute and chronic respiratory failure with hypoxia; J96.22 - Acute and chronic respiratory failure with hypercapnia Status: Acute Assessment and Plan: -chronic respiratory failure with hypoxia and hypercarbia. - patient follows pulmonology Dr. Gurrola, last seen on 11/16/23 - baseline O2 is 1 L at rest, 2 L with exertion and sleep. Patient was initially requiring 3 L, but now remains on baseline 1-2 L. -encourage CPAP use at night (3) Pneumonia: Code(s): J18.9 - Pneumonia, unspecified organism Status: Acute Assessment and Plan: - CXR: Airspace opacities at the lung bases, consistent with atelectasis versus pneumonia. Moderate-sized hiatal hernia. - Complicating Factors: COPD on chronc O2 - started on: Cefepime 2gm q12 hrs, vancomycin DC given neg MRSA nares - Viral PCR: negative for Flu/COVID/RSV - Send sputum cultures - chronic, baseline O2 1L at rest and 2 L with ambulation and overnight. Keep SpO2 greater than 88% - supportive treatment tyl and ibu prn nebs prn incentive spirometry - trend labs - Monitor vital signs, I&Os, neuro status and patient is a fall risk - Follow WBC, serum electrolytes, temperature curves and cultures (4) Heart failure with preserved ejection fraction: Code(s): I50.30 - Unspecified diastolic (congestive) heart failure Status: Acute Assessment and Plan: Chronic, not in acute exacerbation Last echo 10/28/23: EF 70% with grade 1 diastolic dysfunction (5) COPD (chronic obstructive pulmonary disease): Code(s): J44.9 - Chronic obstructive pulmonary disease, unspecified Status: Acute Assessment and Plan: Chronic, does not appear to be in acute exacerbation patient had been started on 125 mg solumedrol TID on admission, now on 80 mg TID and will transition to 60 mg TID in the am (6) Paroxysmal atrial fibrillation: Code(s): I48.0 - Paroxysmal atrial fibrillation Status: Acute Assessment and Plan: -continue telemetry monitoring, as tolerated -rate is stable, not requiring rate control agents -patient is not on anticoagulation due to falls (7) Depression with anxiety: Code(s): F41.8 - Other specified anxiety disorders Status: Chronic Assessment and Plan: -patient with a general sense of feeling unwell -history of underlying cognitive issues and is on Namenda currently -continue Namenda, Abilify, Celexa and Remeron Time Spent With Patient Time with patient: 25 - 35 minutes Subjective Date/time seen: 12/07/23 08:08 Interval history: 88-year-old female with chronic respiratory failure on 2 L nasal cannula, chronic obstructive pulmonary disease, obstructive sleep apnea, paroxysmal atrial fibrillation no longer and anticoagulation following a recent fall, diastolic dysfunction, hypertension, hyperlipidemia, depression, anxiety, tremors, iron deficiency anemia, and deep venous thrombosis presented to the emergency department via EMS from [facility] for evaluation of shortness of breath. Patient is pleasant sitting up in her chair. She states she is feeling a bit more short of breath today, but she relates this to her room change. Patient was placed in a double room and states she is claustrophobic and feels very confined causing her to be a bit more short of breath. Discussed patient with ID and sulaiman Ch
--- NOTE | 2023-12-07 08:27 | PC.NURSE ---
0805- pt status changed to Med/Surg; 0820 report given to Aretha RN- 0820- pt move to room 332-1 via bed accompanied by staff- personal belongings with pt ;pt on 2 l/nc- and pt personal O2 tank with pt
--- NOTE | 2023-12-07 08:30 | PC.NURSE ---
This patient, Jazmin Bullard, was received from [200 IMU] on 12/07/23 at 0830 . Patient/family oriented to unit policies and routines.
[2023-12-07] MEDS: MEMANTINE 5 MG TABLET PO ×2 (09:46→20:28)
[2023-12-07] MEDS: DOCUSATE SODIUM 100 MG CAPSULE PO ×2 (09:46→17:11)
[2023-12-07] MEDS: CHOLECALCIFEROL 1,000 UNITS TABLET 1000 UNITS PO (09:46)
[2023-12-07] MEDS: PANTOPRAZOLE 40 MG TABLET PO (09:46)
[2023-12-07] MEDS: MIDODRINE HCL 2.5 MG TABLET 5 MG PO (09:46)
[2023-12-07] MEDS: FUROSEMIDE 20 MG TABLET PO (09:46)
[2023-12-07] MEDS: OPTI-GEN TAB 1 TABLET PO (09:46)
[2023-12-07] MEDS: PREGABALIN (*CRX) 50 MG CAPSULE 100 MG PO ×2 (09:46→20:27)
[2023-12-07] MEDS: ENOXAPARIN 40 MG/0.4 ML SYRINGE SUB-Q (09:47)
[2023-12-07] MEDS: CEFEPIME 2 GM/NS 50 ML 2 GM/50 ML BAG IVPB ×2 (09:48→20:28)
[2023-12-07] MEDS: PRAMIPEXOLE 0.5 MG TABLET PO (20:27)
[2023-12-07] MEDS: CITALOPRAM HYDROBROMIDE 20 MG TABLET PO (20:27)
[2023-12-07] MEDS: ATORVASTATIN 40 MG TABLET 80 MG PO (20:27)
[2023-12-07] MEDS: MIRTAZAPINE 15 MG TABLET PO (20:28)
[2023-12-07] MEDS: ARIPiprazole 2 MG TABLET PO (20:28)
[2023-12-07] MEDS: traZODone HCL 25 MG TABLET PO (21:37)
[2023-12-08] VITALS (10 sets, daily range): BP systolic 116–138; BP diastolic 56–84; PULSE 54–117; RESP 16–21; TEMP 36.3–36.7; O2SAT 93–100
[2023-12-08] MEDS: methylPREDNISolone SOD SUCC 125 MG VIAL 60 MG IV PUSH ×3 (03:18→20:45)
[2023-12-08] MEDS: oxyCODONE HCL (*CRX) 2.5 MG TAB IR PO ×3 (05:01→17:31)
[2023-12-08] MEDS: oxyCODONE/ACETAMINOPHEN (*CRX) 5-325 MG TABLET 1 TABLET PO ×3 (05:01→17:32)
[2023-12-08] MEDS: FLUTICASONE/UMECLIDIN/VILANTER 100-62.5-25 MCG ELLIPTA 1 PUFF INHALATION (07:41)
--- NOTE | 2023-12-08 08:12 | PM.IMPN ---
Progress Note: A&P Assessment and Plan (1) Sepsis: Code(s): A41.9 - Sepsis, unspecified organism Status: Acute Assessment and Plan: Meets SIRS criteria: WBC, tachycardia - lactic acid: 1.4 - suspected source: pneumonia - blood cultures drawn on 12/04: NGTD - UA: non concerning for infection - CXR:- CXR: Airspace opacities at the lung bases, consistent with atelectasis versus pneumonia. Moderate-sized hiatal hernia. - antibiotics: vancomycin DC given neg MRSA nares, Cefepime 2gm q12 hrs transitioned to augmentin on 12/07 (course to complete on 12/10) (2) Acute on chronic respiratory failure with hypoxia and hypercapnia: Code(s): J96.21 - Acute and chronic respiratory failure with hypoxia; J96.22 - Acute and chronic respiratory failure with hypercapnia Status: Acute Assessment and Plan: -chronic respiratory failure with hypoxia and hypercarbia. - patient follows pulmonology Dr. Gurrola, last seen on 11/16/23 - baseline O2 is 1 L at rest, 2 L with exertion and sleep. Patient was initially requiring 3 L, but now remains on baseline 1-2 L. -encourage CPAP use at night (3) Pneumonia: Code(s): J18.9 - Pneumonia, unspecified organism Status: Acute Assessment and Plan: - CXR: Airspace opacities at the lung bases, consistent with atelectasis versus pneumonia. Moderate-sized hiatal hernia. - Complicating Factors: COPD on chronc O2 - antibiotics: vancomycin DC given neg MRSA nares, Cefepime 2gm q12 hrs transitioned to augmentin on 12/07 (course to complete on 12/10) - Viral PCR: negative for Flu/COVID/RSV - Send sputum cultures - chronic, baseline O2 1L at rest and 2 L with ambulation and overnight. Keep SpO2 greater than 88% - supportive treatment tyl and ibu prn nebs prn incentive spirometry - trend labs - Monitor vital signs, I&Os, neuro status and patient is a fall risk - Follow WBC, serum electrolytes, temperature curves and cultures (4) Heart failure with preserved ejection fraction: Code(s): I50.30 - Unspecified diastolic (congestive) heart failure Status: Acute Assessment and Plan: Chronic, not in acute exacerbation Last echo 7/17/24: EF 70% with grade 1 diastolic dysfunction (5) COPD (chronic obstructive pulmonary disease): Code(s): J44.9 - Chronic obstructive pulmonary disease, unspecified Status: Acute Assessment and Plan: Chronic, does not appear to be in acute exacerbation patient had been started on 125 mg solumedrol TID on admission, now on 80 mg TID and will transition to 60 mg TID in the am (6) Paroxysmal atrial fibrillation: Code(s): I48.0 - Paroxysmal atrial fibrillation Status: Acute Assessment and Plan: -continue telemetry monitoring, as tolerated -rate is stable, not requiring rate control agents -patient is not on anticoagulation due to falls (7) Depression with anxiety: Code(s): F41.8 - Other specified anxiety disorders Status: Chronic Assessment and Plan: -patient with a general sense of feeling unwell -history of underlying cognitive issues and is on Namenda currently -continue Namenda, Abilify, Celexa and Remeron Time Spent With Patient Time with patient: 25 - 35 minutes Subjective Date/time seen: 12/08/23 08:12 Interval history: 88-year-old female with chronic respiratory failure on 2 L nasal cannula, chronic obstructive pulmonary disease, obstructive sleep apnea, paroxysmal atrial fibrillation no longer and anticoagulation following a recent fall, diastolic dysfunction, hypertension, hyperlipidemia, depression, anxiety, tremors, iron deficiency anemia, and deep venous thrombosis presented to the emergency department via EMS from [facility] for evaluation of shortness of breath. Patient is pleasant sitting up in her chair. She endorses a cough, but notes that her breathing has improved. She denies chest pain, palpitations, nausea/vomiting. She remains on the trazodone
[2023-12-08 08:45] LABS: Hematocrit 39.2 % (37.0-47.0); Hemoglobin 11.7 g/dL (12.0-15.0); Immature Granulocyte Absolute 0.06 K/mm3 (0.00-0.031); Immature Granulocyte Percent A 0.7 % (0-0.5); Lymphocytes Absolute Auto 0.74 K/mm3 (0.9-3.2); Lymphocytes Percent Auto 8.1 % (18.3-44.2); Mean Corpuscular HGB Conc 29.8 g/dl (32-36); Mean Corpuscular Hemoglobin 27.9 pg (26-34); Mean Corpuscular Volume 93.6 fl (80-100); Mean Platelet Volume 10.9 fl (7.4-10.4); Monocytes Absolute Auto 0.3 K/mm3 (0.1-0.6); Monocytes Percent Auto 2.9 % (2.6-8.5); Neutrophils Absolute Auto 8.1 K/mm3 (1.3-6.7); Neutrophils Percent Auto 88.3 % (45.5-73.1); Platelet Count Result 171 k/mm3 (150-375); Red Blood Count 4.19 M/mm3 (4.2-5.4); Red Cell Distribution Width 14.6 % (11.5-14.5); White Blood Count 9.1 K/mm3 (4.5-10.0)
[2023-12-08 08:53] LABS: Alanine Aminotransferase 30 U/L (6-35); Albumin Level 3.5 g/dL (3.5-5.1); Alkaline Phosphatase 68 U/L (38-126); Anion Gap 6 mmol/L (4-12); Aspartate Amino Transferase 29 U/L (14-36); Bilirubin,Total 0.3 mg/dL (0.2-1.3); Blood Urea Nitrogen 35 mg/dL (7-17); Calcium 7.8 mg/dL (8.4-10.2); Carbon Dioxide 33 mmol/L (22-30); Chloride 99 mmol/L (98-107); Estimated Glomerular Filt Rate 52; Glucose 121 mg/dL (65-110); Potassium 4.2 mmol/L (3.4-5.0); Sodium 138 mmol/L (137-145)
[2023-12-08] MEDS: CHOLECALCIFEROL 1,000 UNITS TABLET 1000 UNITS PO (08:56)
[2023-12-08] MEDS: PREGABALIN (*CRX) 50 MG CAPSULE 100 MG PO ×2 (08:56→20:46)
[2023-12-08] MEDS: PANTOPRAZOLE 40 MG TABLET PO (08:56)
[2023-12-08] MEDS: DOCUSATE SODIUM 100 MG CAPSULE PO ×2 (08:56→17:29)
[2023-12-08] MEDS: FERROUS SULFATE 325 MG TABLET DR PO (08:57)
[2023-12-08] MEDS: CEFEPIME 2 GM/NS 50 ML 2 GM/50 ML BAG IVPB (08:57)
[2023-12-08] MEDS: FUROSEMIDE 20 MG TABLET PO (08:57)
[2023-12-08] MEDS: OPTI-GEN TAB 1 TABLET PO (08:57)
[2023-12-08] MEDS: ENOXAPARIN 40 MG/0.4 ML SYRINGE SUB-Q (08:57)
[2023-12-08] MEDS: MEMANTINE 5 MG TABLET PO ×2 (08:57→20:46)
[2023-12-08] MEDS: MIDODRINE HCL 2.5 MG TABLET 5 MG PO ×2 (08:57→17:29)
[2023-12-08] MEDS: ALBUTEROL SULFATE NEB 2.5 MG/3 ML INH INHALATION (09:00)
[2023-12-08 09:55] LABS: Hypochromasia 1+; Platelet Estimate Adequate (Adequate); Schistocytes None Seen
[2023-12-08] MEDS: polyethylene glycoL 3350 17 GM POWD.PACK PO (17:31)
[2023-12-08] MEDS: ATORVASTATIN 40 MG TABLET 80 MG PO (20:46)
[2023-12-08] MEDS: ARIPiprazole 2 MG TABLET PO (20:46)
[2023-12-08] MEDS: PRAMIPEXOLE 0.5 MG TABLET PO (20:46)
[2023-12-08] MEDS: CITALOPRAM HYDROBROMIDE 20 MG TABLET PO (20:46)
[2023-12-08] MEDS: MIRTAZAPINE 15 MG TABLET PO (20:46)
[2023-12-08] MEDS: AMOXICILLIN/CLAVULANATE K 500-125 MG TAB 1 TABLET PO (20:47)
[2023-12-08] MEDS: traZODone HCL 25 MG TABLET PO (22:06)
[2023-12-09] VITALS (12 sets, daily range): BP systolic 128–164; BP diastolic 64–95; PULSE 55–101; RESP 15–24; TEMP 36–36.8; O2SAT 90–100
[2023-12-09] MEDS: oxyCODONE/ACETAMINOPHEN (*CRX) 5-325 MG TABLET 1 TABLET PO ×4 (00:13→18:03)
[2023-12-09] MEDS: oxyCODONE HCL (*CRX) 2.5 MG TAB IR PO ×4 (00:14→18:03)
[2023-12-09] MEDS: methylPREDNISolone SOD SUCC 125 MG VIAL 60 MG IV PUSH ×3 (03:33→19:53)
[2023-12-09 06:55] LABS: Basophils Percent Auto 0.1 % (0.2-1.2); Hemoglobin 12.2 g/dL (12.0-15.0); Immature Granulocyte Absolute 0.09 K/mm3 (0.00-0.031); Immature Granulocyte Percent A 1.1 % (0-0.5); Lymphocytes Absolute Auto 0.82 K/mm3 (0.9-3.2); Lymphocytes Percent Auto 10.1 % (18.3-44.2); Mean Corpuscular HGB Conc 30.5 g/dl (32-36); Mean Corpuscular Hemoglobin 27.7 pg (26-34); Mean Corpuscular Volume 90.7 fl (80-100); Mean Platelet Volume 10.3 fl (7.4-10.4); Monocytes Absolute Auto 0.2 K/mm3 (0.1-0.6); Monocytes Percent Auto 2.2 % (2.6-8.5); Neutrophils Percent Auto 86.5 % (45.5-73.1); Platelet Count Result 183 k/mm3 (150-375); Red Blood Count 4.41 M/mm3 (4.2-5.4); Red Cell Distribution Width 14.4 % (11.5-14.5); White Blood Count 8.1 K/mm3 (4.5-10.0)
[2023-12-09 07:08] LABS: Alanine Aminotransferase 32 U/L (6-35); Albumin Level 3.7 g/dL (3.5-5.1); Alkaline Phosphatase 67 U/L (38-126); Anion Gap 8 mmol/L (4-12); Aspartate Amino Transferase 28 U/L (14-36); Bilirubin,Total 0.4 mg/dL (0.2-1.3); Blood Urea Nitrogen 34 mg/dL (7-17); Calcium 8.1 mg/dL (8.4-10.2); Carbon Dioxide 34 mmol/L (22-30); Chloride 95 mmol/L (98-107); Estimated Glomerular Filt Rate > 60; Glucose 131 mg/dL (65-110); Potassium 4.5 mmol/L (3.4-5.0); Sodium 137 mmol/L (137-145)
[2023-12-09] MEDS: MIDODRINE HCL 2.5 MG TABLET 5 MG PO ×2 (08:19→17:13)
[2023-12-09] MEDS: AMOXICILLIN/CLAVULANATE K 500-125 MG TAB 1 TABLET PO ×2 (08:19→20:05)
[2023-12-09] MEDS: MEMANTINE 5 MG TABLET PO ×2 (08:19→20:05)
[2023-12-09] MEDS: PANTOPRAZOLE 40 MG TABLET PO (08:19)
[2023-12-09] MEDS: PREGABALIN (*CRX) 50 MG CAPSULE 100 MG PO ×2 (08:19→20:05)
[2023-12-09] MEDS: ENOXAPARIN 40 MG/0.4 ML SYRINGE SUB-Q (08:19)
[2023-12-09] MEDS: FUROSEMIDE 20 MG TABLET PO (08:19)
[2023-12-09] MEDS: OPTI-GEN TAB 1 TABLET PO (08:19)
[2023-12-09] MEDS: CHOLECALCIFEROL 1,000 UNITS TABLET 1000 UNITS PO (08:19)
[2023-12-09] MEDS: FLUTICASONE/UMECLIDIN/VILANTER 100-62.5-25 MCG ELLIPTA 1 PUFF INHALATION (08:23)
[2023-12-09] MEDS: IPRATROPIUM BR 0.02% INH SOLN 0.5 MG/2.5 ML VIAL INHALATION (08:27)
[2023-12-09] MEDS: ALBUTEROL SULFATE NEB 2.5 MG/3 ML INH INHALATION (08:27)
--- NOTE | 2023-12-09 10:31 | PM.IMPN ---
Progress Note: A&P Assessment and Plan (1) Sepsis: Code(s): A41.9 - Sepsis, unspecified organism Status: Acute Assessment and Plan: Meets SIRS criteria: WBC, tachycardia - lactic acid: 1.4 - suspected source: pneumonia - blood cultures drawn on 12/04: NGTD - UA: non concerning for infection - CXR:- CXR: Airspace opacities at the lung bases, consistent with atelectasis versus pneumonia. Moderate-sized hiatal hernia. - antibiotics: vancomycin DC given neg MRSA nares, Cefepime 2gm q12 hrs transitioned to augmentin on 12/07 (course to complete on 12/10) (2) Acute on chronic respiratory failure with hypoxia and hypercapnia: Code(s): J96.21 - Acute and chronic respiratory failure with hypoxia; J96.22 - Acute and chronic respiratory failure with hypercapnia Status: Acute Assessment and Plan: -chronic respiratory failure with hypoxia and hypercarbia. - patient follows pulmonology Dr. Gurrola, last seen on 11/16/23 - baseline O2 is 1 L at rest, 2 L with exertion and sleep. Patient was initially requiring 3 L, but now remains on baseline 1-2 L. -encourage CPAP use at night - up to the chair tid (3) Pneumonia: Code(s): J18.9 - Pneumonia, unspecified organism Status: Acute Assessment and Plan: - CXR: Airspace opacities at the lung bases, consistent with atelectasis versus pneumonia. Moderate-sized hiatal hernia. - Complicating Factors: COPD on chronc O2 - antibiotics: vancomycin DC given neg MRSA nares, Cefepime 2gm q12 hrs transitioned to augmentin on 12/07 (course to complete on 12/10) - Viral PCR: negative for Flu/COVID/RSV - Send sputum cultures - chronic, baseline O2 1L at rest and 2 L with ambulation and overnight. Keep SpO2 greater than 88% - supportive treatment tyl and ibu prn nebs prn incentive spirometry - trend labs - Monitor vital signs, I&Os, neuro status and patient is a fall risk - Follow WBC, serum electrolytes, temperature curves and cultures (4) Heart failure with preserved ejection fraction: Code(s): I50.30 - Unspecified diastolic (congestive) heart failure Status: Acute Assessment and Plan: Chronic, not in acute exacerbation Last echo 10/28/23: EF 70% with grade 1 diastolic dysfunction (5) COPD (chronic obstructive pulmonary disease): Code(s): J44.9 - Chronic obstructive pulmonary disease, unspecified Status: Acute Assessment and Plan: Chronic, does not appear to be in acute exacerbation patient had been started on 125 mg solumedrol TID on admission, now on 80 mg TID and will transition to 60 mg TID in the am (6) Paroxysmal atrial fibrillation: Code(s): I48.0 - Paroxysmal atrial fibrillation Status: Acute Assessment and Plan: -continue telemetry monitoring, as tolerated -rate is stable, not requiring rate control agents -patient is not on anticoagulation due to falls (7) Depression with anxiety: Code(s): F41.8 - Other specified anxiety disorders Status: Chronic Assessment and Plan: -patient with a general sense of feeling unwell -history of underlying cognitive issues and is on Namenda currently -continue Namenda, Abilify, Celexa and Remeron Time Spent With Patient Time with patient: Greater than 35 minutes Subjective Date/time seen: 12/09/23 10:31 Interval history: 88-year-old female with chronic respiratory failure on 2 L nasal cannula, chronic obstructive pulmonary disease, obstructive sleep apnea, paroxysmal atrial fibrillation no longer and anticoagulation following a recent fall, diastolic dysfunction, hypertension, hyperlipidemia, depression, anxiety, tremors, iron deficiency anemia, and deep venous thrombosis presented to the emergency department via EMS from [facility] for evaluation of shortness of breath. Patient is pleasant sitting up in her chair. She endorses a cough, but notes that her breathing has improved. She denies chest pain, palpitations, nausea/vomiting.
--- NOTE | 2023-12-09 11:55 | PCPTNOTE ---
Attempted to see patient for PT, however patient was eating lunch.
--- NOTE | 2023-12-09 13:49 | PCOTNOTE ---
Attempted to see Patient for P.M. treatment session. Patient declined, stating she had just finished up with PT, was tired and still feels short of breath. Patient requested to have OT services tomorrow morning.
[2023-12-09] MEDS: ARIPiprazole 2 MG TABLET PO (20:05)
[2023-12-09] MEDS: MIRTAZAPINE 15 MG TABLET PO (20:05)
[2023-12-09] MEDS: ATORVASTATIN 40 MG TABLET 80 MG PO (20:05)
[2023-12-09] MEDS: CITALOPRAM HYDROBROMIDE 20 MG TABLET PO (20:05)
[2023-12-09] MEDS: PRAMIPEXOLE 0.5 MG TABLET PO (20:06)
[2023-12-09] MEDS: polyethylene glycoL 3350 17 GM POWD.PACK PO (20:16)
[2023-12-09] MEDS: traZODone HCL 25 MG TABLET PO (22:55)
[2023-12-10] MEDS: oxyCODONE HCL (*CRX) 2.5 MG TAB IR PO ×3 (00:25→13:19)
[2023-12-10] MEDS: oxyCODONE/ACETAMINOPHEN (*CRX) 5-325 MG TABLET 1 TABLET PO ×3 (00:27→13:18)
[2023-12-10 04:00] VITALS: BP 154/82; PULSE 60; RESP 16; TEMP 36.1; O2SAT 95
[2023-12-10] MEDS: methylPREDNISolone SOD SUCC 125 MG VIAL 60 MG IV PUSH (04:29)
[2023-12-10 06:22] LABS: Basophils Percent Auto 0.1 % (0.2-1.2); Hematocrit 38.4 % (37.0-47.0); Hemoglobin 12.4 g/dL (12.0-15.0); Immature Granulocyte Absolute 0.09 K/mm3 (0.00-0.031); Immature Granulocyte Percent A 1.1 % (0-0.5); Lymphocytes Absolute Auto 1.22 K/mm3 (0.9-3.2); Lymphocytes Percent Auto 14.7 % (18.3-44.2); Mean Corpuscular HGB Conc 32.3 g/dl (32-36); Mean Corpuscular Hemoglobin 28.8 pg (26-34); Mean Corpuscular Volume 89.3 fl (80-100); Mean Platelet Volume 10.4 fl (7.4-10.4); Monocytes Absolute Auto 0.4 K/mm3 (0.1-0.6); Monocytes Percent Auto 4.2 % (2.6-8.5); Neutrophils Absolute Auto 6.6 K/mm3 (1.3-6.7); Neutrophils Percent Auto 79.9 % (45.5-73.1); Platelet Count Result 180 k/mm3 (150-375); Red Cell Distribution Width 14.3 % (11.5-14.5); White Blood Count 8.3 K/mm3 (4.5-10.0)
[2023-12-10 06:35] LABS: Alanine Aminotransferase 30 U/L (6-35); Albumin Level 3.2 g/dL (3.5-5.1); Alkaline Phosphatase 61 U/L (38-126); Anion Gap 4 mmol/L (4-12); Aspartate Amino Transferase 27 U/L (14-36); Bilirubin,Total 0.5 mg/dL (0.2-1.3); Blood Urea Nitrogen 37 mg/dL (7-17); Calcium 8.1 mg/dL (8.4-10.2); Carbon Dioxide 36 mmol/L (22-30); Chloride 95 mmol/L (98-107); Estimated Glomerular Filt Rate 59; Glucose 118 mg/dL (65-110); Potassium 4.3 mmol/L (3.4-5.0); Sodium 135 mmol/L (137-145)
[2023-12-10] MEDS: FLUTICASONE/UMECLIDIN/VILANTER 100-62.5-25 MCG ELLIPTA 1 PUFF INHALATION (08:18)
[2023-12-10 08:21] VITALS: PULSE 74; RESP 16; O2SAT 95
[2023-12-10 09:30] VITALS: BP 132/76
[2023-12-10] MEDS: MIDODRINE HCL 2.5 MG TABLET 5 MG PO (10:28)
[2023-12-10] MEDS: ENOXAPARIN 40 MG/0.4 ML SYRINGE SUB-Q (10:28)
[2023-12-10] MEDS: FERROUS SULFATE 325 MG TABLET DR PO (10:29)
[2023-12-10] MEDS: CHOLECALCIFEROL 1,000 UNITS TABLET 1000 UNITS PO (10:29)
[2023-12-10] MEDS: PANTOPRAZOLE 40 MG TABLET PO (10:29)
[2023-12-10] MEDS: OPTI-GEN TAB 1 TABLET PO (10:29)
[2023-12-10] MEDS: MEMANTINE 5 MG TABLET PO (10:29)
[2023-12-10] MEDS: AMOXICILLIN/CLAVULANATE K 500-125 MG TAB 1 TABLET PO (10:29)
[2023-12-10] MEDS: DOCUSATE SODIUM 100 MG CAPSULE PO (10:29)
[2023-12-10] MEDS: PREGABALIN (*CRX) 50 MG CAPSULE 100 MG PO (10:29)
[2023-12-10] MEDS: FUROSEMIDE 20 MG TABLET PO (10:29)
[2023-12-10 12:00] VITALS: BP 121/89; PULSE 62; RESP 16; TEMP 36.4; O2SAT 97
--- NOTE | 2023-12-10 12:38 | PM.DS ---
DS: Admitting Diagnosis Discharge Date 12/09 Admitting Diagnosis sob DS: Discharge Diagnosis Discharge Diagnosis (1) Sepsis: Code(s): A41.9 - Sepsis, unspecified organism Status: Acute Assessment and Plan: Meets SIRS criteria: WBC, tachycardia - lactic acid: 1.4 - suspected source: pneumonia - blood cultures drawn on 12/04: NGTD - UA: non concerning for infection - CXR:- CXR: Airspace opacities at the lung bases, consistent with atelectasis versus pneumonia. Moderate-sized hiatal hernia. - antibiotics: vancomycin DC given neg MRSA nares, Cefepime 2gm q12 hrs transitioned to augmentin on 12/07 (course to complete on 12/10) (2) Acute on chronic respiratory failure with hypoxia and hypercapnia: Code(s): J96.21 - Acute and chronic respiratory failure with hypoxia; J96.22 - Acute and chronic respiratory failure with hypercapnia Status: Acute Assessment and Plan: -chronic respiratory failure with hypoxia and hypercarbia. - patient follows pulmonology Dr. Gurrola, last seen on 11/16/23 - baseline O2 is 1 L at rest, 2 L with exertion and sleep. Patient was initially requiring 3 L, but now remains on baseline 1-2 L. -encourage CPAP use at night - up to the chair tid (3) Pneumonia: Code(s): J18.9 - Pneumonia, unspecified organism Status: Acute Assessment and Plan: - CXR: Airspace opacities at the lung bases, consistent with atelectasis versus pneumonia. Moderate-sized hiatal hernia. - Complicating Factors: COPD on chronc O2 - antibiotics: vancomycin DC given neg MRSA nares, Cefepime 2gm q12 hrs transitioned to augmentin on 12/07 (course to complete on 12/10) - Viral PCR: negative for Flu/COVID/RSV - Send sputum cultures - chronic, baseline O2 1L at rest and 2 L with ambulation and overnight. Keep SpO2 greater than 88% - supportive treatment tyl and ibu prn nebs prn incentive spirometry - trend labs - Monitor vital signs, I&Os, neuro status and patient is a fall risk - Follow WBC, serum electrolytes, temperature curves and cultures (4) Heart failure with preserved ejection fraction: Code(s): I50.30 - Unspecified diastolic (congestive) heart failure Status: Acute Assessment and Plan: Chronic, not in acute exacerbation Last echo 10/28/23: EF 70% with grade 1 diastolic dysfunction (5) COPD (chronic obstructive pulmonary disease): Code(s): J44.9 - Chronic obstructive pulmonary disease, unspecified Status: Acute Assessment and Plan: Chronic, does not appear to be in acute exacerbation patient had been started on 125 mg solumedrol TID on admission, now on 80 mg TID and will transition to 60 mg TID in the am (6) Paroxysmal atrial fibrillation: Code(s): I48.0 - Paroxysmal atrial fibrillation Status: Acute Assessment and Plan: -continue telemetry monitoring, as tolerated -rate is stable, not requiring rate control agents -patient is not on anticoagulation due to falls (7) Depression with anxiety: Code(s): F41.8 - Other specified anxiety disorders Status: Chronic Assessment and Plan: -patient with a general sense of feeling unwell -history of underlying cognitive issues and is on Namenda currently -continue Namenda, Abilify, Celexa and Remeron DS: Summary Hospital Course Hospital Course: Interval history: 88-year-old female with chronic respiratory failure on 2 L nasal cannula, chronic obstructive pulmonary disease, obstructive sleep apnea, paroxysmal atrial fibrillation no longer and anticoagulation following a recent fall, diastolic dysfunction, hypertension, hyperlipidemia, depression, anxiety, tremors, iron deficiency anemia, and deep venous thrombosis presented to the emergency department via EMS from [facility] for evaluation of shortness of breath. Patient is pleasant sitting up in her chair. She endorses a cough, but notes that her breathing has improved. She denies chest pain, palpitations, nausea
[2023-12-10] MEDS: predniSONE 20 MG TABLET 60 MG PO (14:39)
== END 2023-12-10 14:45 | DRG 871 ==
LOC: ANHED 08:57 → ANHIMU 14:16 → ANH3MEDSUR 12-08 10:04 → ANHIMU 12-11 08:48
PROVIDERS: Nurse Practitioner; Student in an Organized Health Care Education/Training Program; Admitting Provider Internal Medicine; Emergency Provider Emergency Medicine; PCP Physician Assistant; Visit Provider Nurse Practitioner
DX: A41.9 Sepsis, unspecified organism (principal); J18.9 Pneumonia, unspecified organism; J96.21 Acute and chronic respiratory failure with hypoxia; J96.22 Acute and chronic respiratory failure with hypercapnia; I50.32 Chronic diastolic (congestive) heart failure; J44.0 Chronic obstructive pulmonary disease with (acute) lower respiratory infection; D50.9 Iron deficiency anemia, unspecified; E78.5 Hyperlipidemia, unspecified; F41.8 Other specified anxiety disorders; G47.33 Obstructive sleep apnea (adult) (pediatric); I11.0 Hypertensive heart disease with heart failure; I48.0 Paroxysmal atrial fibrillation; K44.9 Diaphragmatic hernia without obstruction or gangrene; R25.1 Tremor, unspecified; Z20.822 Contact with and (suspected) exposure to COVID-19; Z99.81 Dependence on supplemental oxygen; Z86.718 Personal history of other venous thrombosis and embolism
CPT/HCPCS: 36415; 71046; 80053; 81001; 82803; 83605; 84145; 84484; 85025; 85610; 85730; 86140; 87040; 87637; 87641; 93005; 94640; 96361; 96365; 96375; 97110; 97161; 97165; 97530; 97535; 99291; A9270; J0692; J1650; J2919; J3370; J7030; J7512

== ENCOUNTER 2023-12-29 18:58 | Inpatient (IN) | payer MEDICARE, SELFPAY ==
[2023-12-29] VITALS (10 sets, daily range): BP systolic 98–101; BP diastolic 48–69; PULSE 98–133; RESP 18–27; TEMP 37–37.7; O2SAT 91–98
--- NOTE | ~2023-12-29 | XR_ITS ---
EXAMINATION: XR barium swallow modified DATE: 01/01/2024 09:23 INDICATION: Choking. TECHNIQUE: The patient was given barium-containing material of multiple consistencies to swallow by t tanja speech pathologist while I performed fluoroscopy. Fluoroscopy exposure time was 2.3 minutes. The n umber of fluoroscopy images saved to the PACS was 1. Dose-area product was 2.447 Gy-cm^2. FINDINGS: There is reduced laryngeal elevation, reduced laryngeal adduction, reduced tongue base retraction, va llecular residue, pyriform sinus residue, pharyngeal wall residue, laryngeal penetration, and aspirat ion. IMPRESSION: 1. Aspiration. 2. Please refer to the speech therapy report for recommendations. Reviewed, dictated and finalized at location A.
--- NOTE | ~2023-12-29 | CT_ITS ---
EXAMINATION: CTA chest PE protocol DATE: 12/29/2023 23:01 INDICATION: hypoxia, SHERON TECHNIQUE: Computed tomography angiography (CTA) of the chest was performed with 100 mL Omnipaque-350 intravenous contrast timed to evaluate the pulmonary arteries. Coronal maximum intensity projection 3D-reconstructions were created by the technologist. The dose-length product (DLP) was 643.98 mGy-cm. Automated exposure control and iterative reconstruction technique were employed. COMPARISON: X-ray chest, same date; CT chest 03/03/2022; CT abdomen pelvis 09/02/2023. FINDINGS: Lung parenchyma and airways: Segmental consolidation in the dependent portions of the bilateral lower lobes and right middle lobe. Patent airways. Pleura: Small left pleural fluid collection. Thoracic inlet, axillae and chest wall: Unremarkable. Thoracic aorta: Mild thoracic aortic ectasia. Moderate atherosclerotic calcifications. No dissection. Mediastinum: Moderate enlarged subcarinal and bilateral hilar lymph nodes. Hiatal hernia. Patulous es ophagus. Heart and pericardium: Left ventricular hypertrophy. RV/LV ratio 1.5. Coronary artery calcifications: Moderate. Upper abdomen: Multiple hepatic hypodensities, likely representing cysts. Multiple stable pancreatic cysts. Multiple stable renal cysts. Bones: No acute osseous finding. Multiple stable compression deformities in the thoracolumbar junctio n. Vertebroplasty cement at T12 Pulmonary arteries: Study quality: Adequate. Small nonocclusive filling defects in several left lower lobe segmental arteries. IMPRESSION: Small nonocclusive filling defects in several left lower lobe segmental arteries. Low clot burden. Th e RV/LV ratio is 1.5 but this may be confounded by left ventricular hypertrophy. No septal bowing or significant hepatic vein reflux. Segmental right middle lobe and bilateral lower lobe dependent consolidations, concerning for pneumon ia. Aspiration should be considered in the differential. Small left pleural effusion. Subcarinal and bilateral hilar lymphadenopathy. Reviewed, dictated and finalized at location K. IMPRESSION: Small nonocclusive filling defects in several left lower lobe segmental arterie s. Low clot burden. The RV/LV ratio is 1.5 but this may be confounded by left v entricular hypertrophy. No septal bowing or significant hepatic vein reflux. Segmental right middle lobe and bilateral lower lobe dependent consolidations, concerning for pneumonia. Aspiration should be considered in the differential. Small left pleural effusion. Subcarinal and bilateral hilar lymphadenopathy.
--- NOTE | ~2023-12-29 | XR_ITS ---
EXAMINATION: XR chest 1V portable Exam Date/Time: 12/29/2023 19:52 CDT HISTORY: SHERON Comparison: 12/05/2023. RESULT: Lines, tubes, and devices: Partially visualized cervical fusion hardware. Lower thoracic vertebropla sty cement. Lungs and pleura: Low volumes. Patchy and streaky bilateral lower lung opacities, unchanged. Mild bi lateral costophrenic angle blunting. Cardiomediastinal silhouette: Stable. Moderate hiatal hernia. Other: No acute osseous or upper abdominal finding. IMPRESSION: Unchanged segmental left and subsegmental right lower lobe opacities may represent atelectasis or con solidation. Possible small bilateral pleural effusions. Reviewed, dictated and finalized at location K. IMPRESSION: Unchanged segmental left and subsegmental right lower lobe opacities may repres ent atelectasis or consolidation. Possible small bilateral pleural effusions.
--- NOTE | ~2023-12-29 | XR_ITS ---
EXAMINATION: XR chest 1V portable DATE: 01/03/2024 10:48 INDICATION: Shortness of breath and cough. TECHNIQUE: A single frontal view of the chest was obtained. COMPARISON: Chest 2 views 12/30/2023 FINDINGS: There are airspace opacities in the lower lung zones. There are small pleural effusions. No pneumothorax. The large hiatal hernia. The heart size is normal. There are changes of posterior fusi on procedure in cervical spine. Surgical clips in the right upper quadrant are likely from cholecyste ctomy. IMPRESSION: 1. Small pleural effusions. 2. Airspace opacities in the lower lung zones, consistent with atelectasis or less likely pneumonia. 3. Large hiatal hernia. Reviewed, dictated and finalized at location A. IMPRESSION: 1. Small pleural effusions. 2. Airspace opacities in the lower lung zones, consistent with atelectasis or l ess likely pneumonia. 3. Large hiatal hernia.
--- NOTE | ~2023-12-29 | XR_ITS ---
XR chest 2V Ordering provider: Beena Carrasco PA-C History: 88 years Female with . Swelling upper chest . Comparison: December 29, 2023 FINDINGS: MEDIASTINUM: The cardiac silhouette is slightly enlarged. Congestive clive. LUNGS: No effusions or pneumothorax. Opacification the lung bases. OTHER: No free air under the diaphragm. Multiple compression fractures in the lower thoracic and uppe r lobe lumbar area with vertebroplasty in one of the vertebrae. IMPRESSION: Bilateral basal opacification suggestive of atelectasis versus pneumonia. Reviewed, dictated and finalized at location A.
--- NOTE | 2023-12-29 19:01 | ECG_ITS ---
Test Date: 2023-12-29 19:11:24 Measurements Intervals [place] Rate: 122 P: 76 CA: 157 QRS: 34 QRSD: 129 T: -9 QT: 325 QTc: 463 Interpretive Statements SINUS TACHYCARDIA WITH OCCASIONAL SUPRAVENTRICULAR PREMATURE COMPLEXES RIGHT BUNDLE BRANCH BLOCK CONSIDER INFERIOR INFARCT, AGE INDETERMINATE ST-T WAVE ABNORMALITY IN ANTEROLATERAL LEADS- CONSIDER ISCHEMIA BASELINE ARTIFACT- I, II, III, AVR, AVL, AVF, V1-V6 ABNORMAL ECG Compared to ECG 12/06/2023 08:59:07 HEART RATE HAS INCREASED Electronically Signed On 12-29-2023 20:23:41 CDT by Cristian Sanchez D.O.
--- NOTE | 2023-12-29 19:17 | ED.SOB ---
HPI - SOB/Dyspnea General Chief Complaint: Shortness of Breath/Dyspnea Stated Complaint: SOB Time Seen by Provider: 12/29/23 19:01 History of Present Illness HPI Narrative: Patient had recently been admitted here for pneumonia, 2 hours ago started having increased shortness of breath. Had just finished a course of antibiotics and steroids. Related Data Home Medications Medication Instructions Recorded Confirmed atorvastatin 80 mg tablet 80 mg PO HS 03/04/22 12/05/23 memantine 5 mg tablet 5 mg PO Q12H 03/04/22 12/05/23 pramipexole 0.5 mg tablet (Mirapex) 0.5 mg PO HS 03/07/22 12/05/23 ferrous sulfate 325 mg (65 mg 325 mg PO Q48H 10/01/22 12/05/23 iron) tablet pregabalin 100 mg capsule 100 mg PO Q12H 10/01/22 12/05/23 albuterol sulfate 2.5 mg/3 mL 2.5 mg inhalation Q8H PRN wheezing 10/13/22 12/05/23 (0.083 %) solution for nebulization cholecalciferol (vitamin D3) 25 25 mcg PO DAILY 10/13/22 12/05/23 mcg (1,000 unit) capsule (Vitamin D3) citalopram 20 mg tablet 20 mg PO QHS 02/20/23 12/05/23 guaifenesin 600 mg tablet, 600 mg PO Q12HR PRN Congestion 09/01/23 12/05/23 extended release 12 hr (Mucus Relief ER) lidocaine 4 % topical patch 1 patch transdermal DAILY PRN Back 09/01/23 12/05/23 (Lidocaine Pain Relief) Pain aripiprazole 2 mg tablet 2 mg PO QHS 09/17/23 12/05/23 bisacodyl 5 mg tablet,delayed 5 mg PO DAILY PRN constipation 09/17/23 12/05/23 release furosemide 20 mg tablet 20 mg PO DAILY 09/17/23 12/05/23 midodrine 5 mg tablet 5 mg PO BID 11/16/23 12/05/23 vit C 250 mg-vit E 90 mg-zinc 40 1 tablet PO DAILY 12/05/23 12/05/23 mg-copper 1 [id number] capsule (PreserVision AREDS-2) Allergies Allergy/AdvReac Type Severity Reaction Status Date / Time chlorpromazine Allergy Unknown Unknown Verified 12/29/23 19:06 [From Thorazine] diphenhydramine Allergy Unknown Unknown Verified 12/29/23 19:06 [From Benadryl] meperidine [From Demerol] Allergy Unknown Unknown Verified 12/29/23 19:06 rofecoxib [From Vioxx] Allergy Unknown Unknown Verified 12/29/23 19:06 zolpidem [From Ambien] Allergy Unknown Unknown Verified 12/29/23 19:06 Review of Systems Review of Systems: All systems reviewed & are unremarkable except as noted in HPI and below PMFSH Past Medical History Medical History Chronic GERD Chronic obstructive pulmonary disease Chronic pain syndrome Chronic respiratory failure with hypoxia and hypercapnia Deep venous thrombosis Depression with anxiety Heart failure with preserved ejection fraction Hiatal hernia Obstructive sleep apnea Paroxysmal atrial fibrillation Surgical History Surgical History History of bladder repair surgery History of breast surgery History of cataract extraction History of cholecystectomy History of colonoscopy History of esophagogastroduodenoscopy History of foot surgery History of fusion of cervical spine History of hernia repair History of hysterectomy History of spinal surgery History of tonsillectomy Family History Family History Father Bladder cancer Mother Hypertension Depression Sibling Asthma Hypertension Depression Grandparent Hypertension Heart disease Cerebrovascular accident Grandparent Alcoholism Lung cancer Social History Social History Social History: Surrogate medical decision maker: Tyrone Bullard, son. Code status: Full code. Smoking packs per day: 1 Smoking cigarettes per day: 20.0 Years smoked: 35 Smoking pack-years: 35.00 Smoking status: Former smoker Second hand tobacco smoke exposure: No Alcohol intake: never Drinks per week: 1 Substance use: current Substance use type: other Other substance usage details: THC gummie PRN HS to help sleep Do You Feel Safe in y
[2023-12-29] MEDS: IPRATROPIUM BR 0.02% INH SOLN 0.5 MG/2.5 ML VIAL 1 MG INHALATION (19:20)
[2023-12-29] MEDS: ALBUTEROL SULFATE NEB 2.5 MG/3 ML INH 15 MG INHALATION (19:20)
[2023-12-29 20:12] LABS: Basophils Percent Auto 0.2 % (0.2-1.2); Eosinophils Absolute Auto 0.1 K/mm3 (0-0.3); Eosinophils Percent Auto 0.6 % (0-4.4); Hematocrit 43.7 % (37.0-47.0); Hemoglobin 13.1 g/dL (12.0-15.0); Immature Granulocyte Absolute 0.03 K/mm3 (0.00-0.031); Immature Granulocyte Percent A 0.3 % (0-0.5); Immature Platelet Fraction Pct 3.1 % (0.9-11.2); Lymphocytes Absolute Auto 1.53 K/mm3 (0.9-3.2); Lymphocytes Percent Auto 17.5 % (18.3-44.2); Mean Corpuscular Hemoglobin 28.4 pg (26-34); Mean Corpuscular Volume 94.6 fl (80-100); Mean Platelet Volume 9.7 fl (7.4-10.4); Monocytes Absolute Auto 0.2 K/mm3 (0.1-0.6); Monocytes Percent Auto 1.8 % (2.6-8.5); Neutrophils Percent Auto 79.6 % (45.5-73.1); Platelet Count Result 143 k/mm3 (150-375); Red Blood Count 4.62 M/mm3 (4.2-5.4); Red Cell Distribution Width 15.9 % (11.5-14.5); White Blood Count 8.7 K/mm3 (4.5-10.0)
[2023-12-29 20:18] LABS: Lactic Acid Reflex 1.7 mmol/L (0.7-2.0)
[2023-12-29 20:19] LABS: Alanine Aminotransferase 59 U/L (6-35); Albumin Level 3.9 g/dL (3.5-5.1); Alkaline Phosphatase 94 U/L (38-126); Anion Gap 5 mmol/L (4-12); Aspartate Amino Transferase 40 U/L (14-36); Bilirubin,Total 0.7 mg/dL (0.2-1.3); Blood Urea Nitrogen 33 mg/dL (7-17); Calcium 8.8 mg/dL (8.4-10.2); Carbon Dioxide 38 mmol/L (22-30); Chloride 97 mmol/L (98-107); Estimated Glomerular Filt Rate 59; Glucose 134 mg/dL (65-110); Potassium 4.2 mmol/L (3.4-5.0); Sodium 140 mmol/L (137-145)
[2023-12-29] MEDS: MAGNESIUM SULF 2 GM/WATER 50ML 2 GM/50 ML BAG IVPB (21:11)
[2023-12-29 21:28] LABS: Influenza A QL RT-PCR Negative (Negative); Influenza B QL RT-PCR Negative (Negative); RSV RNA, RT-PCR Negative (Negative); SARS-CoV-2 RNA PCR Negative (Negative)
[2023-12-29 22:18] LABS: Alveolar/Arterial O2 Gradient 229.4 mmHg; Base Excess ABG 3.9 mEq/l (+/-2.0); Fractional Inspired Oxygen 50 %; HCO3 ABG 30.2 mEq/l (22.0-26.0); Oxygen Content ABG 16.3 %vol (16.0-22.0); Oxygen Saturation ABG 92.9 % (95.0-100.0); Oxyhemoglobin 92.1 % THb (90.0-100.0); PCO2 ABG 52.5 mmHg (35.0-45.0); PO2 FiO2 Ratio Arterial Blood 1.36 %; Total Hemoglobin 12.6 g/dL (12.0-18.0); pH ABG 7.377 (7.350-7.450)
[2023-12-29 22:19] LABS: Device BIPAP; Modified Allen's Test Pass; Site Drawn RIGHT RADIAL
[2023-12-29 22:20] LABS: Expiratory Pressure 6 cmH2O; Inspiratory Pressure 12 cmH2O
[2023-12-29 22:26] LABS: NT Pro B Type Natriuretic Pept 782 pg/mL (19.9-100)
[2023-12-29] MEDS: CEFEPIME 1 GM/NS 50 ML 1 GM/50 ML BAG IVPB (23:13)
[2023-12-29] MEDS: FUROSEMIDE INJ 40 MG/4 ML VIAL 20 MG IV PUSH (23:13)
[2023-12-29] MEDS: ACETAMINOPHEN 500 MG TABLET 1000 MG PO (23:17)
--- NOTE | 2023-12-29 23:17 | PM.IMHP ---
H&P: HPI History of Present Illness Date/Time: 12/29/23 23:17 Chief Complaint: SOB Narrative: Ms. Bullard Is an 88-year-old female with COPD, ROSALIA, chronic respiratory failure on 2 L nasal cannula continuously, paroxysmal atrial fibrillation no longer on anticoagulation due to falls, diastolic heart failure, hypertension, hyperlipidemia, obesity, depression and anxiety, tremors, iron deficiency anemia, history of DVT, neurocognitive disorder currently on Namenda. She presents with acute onset of shortness of breath 2 hours prior to arriving at the ER. She resides at [facility]. She was just discharged from [facility] on 12/10/2023 for pneumonia and sepsis having received vancomycin and cefepime along with acute on chronic respiratory failure with hypoxia and hypercapnia. She appeared better and was discharged on p.o. Augmentin and steroid. ER evaluation demonstrated temperature 100? F, heart rate between 98 and 133, respiratory rate 23, blood pressure 101/69. Patient required 4 L nasal cannula to maintain saturations however she appeared tachypneic still so she was placed on BiPAP with a FiO2 of 50 . WBC 8.7, hemoglobin 13, platelet 143. ABG demonstrates pH 7.3, pCO2 52.5, PO2 68, bicarb 30.2. Chloride 97, BUN 33, serum creatinine 0.9, glucose 134, lactic acid 1.7. Transaminases slightly elevated at 40 and 59, AST and ALT respectively. ProBNP 782. MRSA nares pending. Quad viral screen negative one-view chest x-ray demonstrating patchy and streaky bilateral lower lung opacities which are unchanged from last admission along with mild bilateral costophrenic angle blunting. CT PE demonstrates she was given DuoNeb treatments, Tylenol, Lasix, cefepime and vancomycin, magnesium, Solu-Medrol. These therapies in the BiPAP helped to relieve her symptoms. She denies productive cough. Denies any other symptoms Including chest pain, subjective fever, leg swelling. Review of Systems Review of Systems: All systems reviewed & are unremarkable except as noted in HPI and below (subjective) [facility] Past Medical History Medical History Chronic GERD Chronic obstructive pulmonary disease Chronic pain syndrome Chronic respiratory failure with hypoxia and hypercapnia Deep venous thrombosis Depression with anxiety Heart failure with preserved ejection fraction Hiatal hernia Obstructive sleep apnea Paroxysmal atrial fibrillation Surgical History Surgical History History of bladder repair surgery History of breast surgery History of cataract extraction History of cholecystectomy History of colonoscopy History of esophagogastroduodenoscopy History of foot surgery History of fusion of cervical spine History of hernia repair History of hysterectomy History of spinal surgery History of tonsillectomy Family History Family History Father Bladder cancer Mother Hypertension Depression Sibling Asthma Hypertension Depression Grandparent Hypertension Heart disease Cerebrovascular accident Grandparent Alcoholism Lung cancer Social History Social History Social History: Surrogate medical decision maker: Tyrone Bullard, son. Code status: Full code. Smoking packs per day: 1 Smoking cigarettes per day: 20.0 Years smoked: 35 Smoking pack-years: 35.00 Smoking status: Former smoker Second hand tobacco smoke exposure: No Alcohol intake: never Drinks per week: 1 Substance use: current Substance use type: other Other substance usage details: THC gummie PRN HS to help sleep Do You Feel Safe in your Home?: Yes Lack of Transportation: No Lack of Food: Never True Current Housing: I Have Housing Concerned About Future Housing: No Difficulty Paying Gas/Electr
[2023-12-29 23:57] LABS: MRSA (PCR) NOT DETECTED (NOT DETECTE)
[2023-12-29] MEDS: VANCOMYCIN 1,750 MG/NS 500 ML 1,750 MG/500 ML BAG 250 MG IVPB (23:58)
[2023-12-30] VITALS (39 sets, daily range): BP systolic 65–137; BP diastolic 52–87; PULSE 70–116; RESP 18–28; TEMP 36.1–37.4; O2SAT 92–100; BMI 34.9
--- NOTE | 2023-12-30 | ECHO_ITS ---
Patient Info Name: Jazmin Bullard Age: 88 years : 1935 Gender: Female Ht: 54 in Wt: 144 lbs BSA: 1.62 m2 HR: 90 bpm BP: 86 / 58 mmHg Heart Rhythm: Indeterminant Technical Quality: Good Exam Date: 12/30/2023 11:22 AM Exam Location: Echo Lab Patient Status: Inpatient Admit Date: 12/29/2023 Staff Ordering Physician: Fadumo Reynoso PA-C Postal Superintendent: Catracho Tirado RDCS Attending Provider: Fadumo Reynoso PA-C Referring Physician: Angeles WILSON; Exam Type: CA echo doppler color flow Study Info Indications - PE Complete two-dimensional, color flow and Doppler transthoracic echocardiogram is performed. Summary 1. Left ventricular chamber dimension is normal. 2. Left ventricular systolic function is hyperdynamic, estimated at >70%. 3. There is mildly increased left ventricular wall thickness. 4. The left ventricular diastolic function is grade I diastolic dysfunction. 5. Right ventricular chamber dimension is moderately enlarged. 6. Right ventricular systolic function is normal. 7. Left atrial chamber dimension is severely enlarged. 8. Right atrial chamber dimension is severely enlarged. 9. There is mild to moderate tricuspid valve regurgitation. 10. Estimated pulmonary arterial systolic pressure is 66 mmHg. Left Ventricle Left ventricular chamber dimension is normal. Left ventricular systolic function is hyperdynamic, estimated at >70%. There is mildly increased left ventricular wall thickness. The left ventricular diastolic function is grade I diastolic dysfunction. Right Ventricle Right ventricular chamber dimension is moderately enlarged. Right ventricular systolic function is normal. Left Atria Left atrial chamber dimension is severely enlarged. Right Atria Right atrial chamber dimension is severely enlarged. Atrial Septum Intact interatrial septum visualized by color flow imaging. Aortic Valve The aortic valve is probable trileaflet. There is no aortic valve stenosis. There is trace aortic valve regurgitation. There is mild aortic valve calcification. Pulmonic Valve The pulmonic valve is not well visualized. There is no pulmonic regurgitation. Mitral Valve There is trace mitral valve regurgitation. Tricuspid Valve There is mild to moderate tricuspid valve regurgitation. Estimated pulmonary arterial systolic pressure is 66 mmHg. Pericardium/Pleural There is no pericardial effusion. Inferior Vena Cava Normal inferior vena cava with >50% collapse upon inspiration consistent with normal right atrial pressure, 3 mmHg. Aorta The aortic root size at the sinus of Valsalva is normal. Left Ventricular Outflow Tract Name Value Normal LVOT 2D LVOT Diameter 1.8 cm LVOT Doppler LVOT Peak Gradient 9 mmHg LVOT Mean Gradient 5 mmHg LVOT VTI 32 cm LVOT VTI/AV VTI Ratio 0.6 LVOT Stroke Volume 84 ml LVOT CO 10.1 l/min LVOT CI 6.2 l/min/m2 Pulmonic Valve Name
[2023-12-30] MEDS: HEPARIN SOD/D5W 100 UNITS/ML 25,000 UNITS/250 ML BAG 8 UNITS IV CONT (00:15)
[2023-12-30] MEDS: HEPARIN SODIUM 5,000 UNITS/ML VIAL 5500 UNITS IV PUSH (00:15)
--- NOTE | 2023-12-30 00:40 | PC.NURSE ---
EDP Dr. Lomas made aware of pts dropping pressures. Orders to keep pt in ED until blood pressures improve. Pt remains a&ox4, pt has c/o dizziness and feeling more tired than normal .
[2023-12-30] MEDS: LACTATED RINGERS 1,000 ML 999 ML IV CONT (00:42)
[2023-12-30] MEDS: MIDODRINE HCL 2.5 MG TABLET 5 MG PO (01:14)
[2023-12-30] MEDS: IPRATROPIUM 0.5 MG/ALBUTEROL SULFATE 2.5 MG AMPUL.NEB 3 ML INHALATION ×4 (02:18→20:50)
--- NOTE | 2023-12-30 02:27 | ADMGEN ---
This patient, Jazmin Bullard, was admitted to IMU Room 231-01. Patient/family oriented to hospital policies and general routines including ID bracelet, bed and alarms, visiting hours, pain management, procedures, bathroom and other care routines, personal items, smoking policy, room service/diet, and visiting hours. Information on how to activate the Rapid Response Team has been discussed. Patient/Family are encouraged to report perceived risks to care and to ask questions if they do not understand what they are told or what they should do.
[2023-12-30] MEDS: methylPREDNISolone SOD SUCC 125 MG VIAL 60 MG IV PUSH ×3 (06:06→23:07)
--- NOTE | 2023-12-30 07:29 | PM.IMPN ---
Progress Note: A&P Assessment and Plan (1) Sepsis: Code(s): A41.9 - Sepsis, unspecified organism Status: Acute Assessment and Plan: Meets SIRS criteria - lactic acid: 1.7 - suspected source: pneumonia - blood cultures drawn on 12/28: pending - One-view chest x-ray: patchy and streaky bilateral lower lung opacities which are unchanged from last admission along with mild bilateral costophrenic angle blunting. - CT PE: Small left pleural fluid collection, segmental consolidation in the dependent portions of the bilateral lower lobes and right middle lobe, mild thoracic aortic ectasia, moderate atherosclerotic calcifications, no dissection, moderately enlarged subcarinal and bilateral hilar lymph nodes, hiatal hernia, patulous esophagus, LVH, multiple hepatic hypodensities likely representing cysts, multiple stable pancreatic cyst, multiple stable renal cyst, multiple stable compression deformities in the thoracolumbar junction, vertebroplasty cement at T12, small nonocclusive filling defects in this several left lower lobe segmental arteries, low clot burden. (2) Acute on chronic respiratory failure with hypoxia and hypercapnia: Code(s): J96.21 - Acute and chronic respiratory failure with hypoxia; J96.22 - Acute and chronic respiratory failure with hypercapnia Status: Acute Assessment and Plan: Hypoxia secondary to pneumonia, COPD exacerbation and PE. Patient on 2L NC chronically for COPD, now requiring 3L to maintain saturations. Per chart review she still looked tachypneic and was placed on bipap with FIO2 of 50. She has since been transitioned to 3L NC. Wean O2 supplementation back to baseline as tolerated, maintain spo2 > 88% (3) Pulmonary embolism: Code(s): I26.99 - Other pulmonary embolism without acute cor pulmonale Status: Acute Assessment and Plan: Patient has paroxysmal atrial fibrillation. Hx of DVT, not on anticoagulation due to fall history. - Patient on 2L NC chronically for COPD, now requiring 4L to maintain saturations. Per chart review she still looked tachypeneic and was placed on bipap with FIO2 of 50. - One-view chest x-ray: patchy and streaky bilateral lower lung opacities which are unchanged from last admission along with mild bilateral costophrenic angle blunting. - CT PE: Small left pleural fluid collection, segmental consolidation in the dependent portions of the bilateral lower lobes and right middle lobe, mild thoracic aortic ectasia, moderate atherosclerotic calcifications, no dissection, moderately enlarged subcarinal and bilateral hilar lymph nodes, hiatal hernia, patulous esophagus, LVH, multiple hepatic hypodensities likely representing cysts, multiple stable pancreatic cyst, multiple stable renal cyst, multiple stable compression deformities in the thoracolumbar junction, vertebroplasty cement at T12, small nonocclusive filling defects in this several left lower lobe segmental arteries, low clot burden. - Echocardiogram to rule out cardiac strain: LVEF > 70% with grade I diastolic dysfunction - Heparin drip started - Monitor vital signs, I&Os, shortness of breath and chest pain. Patient is a fall risk - Monitor serum electrolytes, PTT, CBC, WBC, temperature curve and cultures. - Monitor for bloody bowel movements,chest pain,SOB or dizziness/lightheadedness (4) Pneumonia: Code(s): J18.9 - Pneumonia, unspecified organism Status: Acute Assessment and Plan: - One-view chest x-ray: patchy and streaky bilateral lower lung opacities which are unchanged from last admission along with mild bilateral costophrenic angle blunting. - CT PE: Small left pleural fluid collection, segmental consolidation in the dependent portions of the bilateral lower lobes and right middle lobe, mild thoracic aortic ectasia, moderate atherosclerotic calcifications, no dissection, moderately enlarged subcarinal and bilateral hilar lymph nodes, hiatal hernia, patulous esophagus, LVH
[2023-12-30] MEDS: MEMANTINE 5 MG TABLET PO ×2 (08:00→20:20)
[2023-12-30] MEDS: FERROUS SULFATE 325 MG TABLET DR BY MOUTH (08:00)
[2023-12-30] MEDS: DOCUSATE SODIUM 100 MG CAPSULE PO ×2 (08:00→17:05)
[2023-12-30] MEDS: PREGABALIN (*CRX) 50 MG CAPSULE 100 MG PO ×2 (08:00→20:21)
[2023-12-30] MEDS: MIDODRINE HCL 2.5 MG TABLET 10 MG PO ×2 (08:00→17:05)
[2023-12-30] MEDS: ARIPiprazole 2 MG TABLET PO (08:00)
[2023-12-30] MEDS: PANTOPRAZOLE 40 MG TABLET PO (08:00)
[2023-12-30] MEDS: CEFEPIME 1 GM/NS 50 ML 1 GM/50 ML BAG IVPB ×2 (08:01→20:22)
[2023-12-30] MEDS: OPTI-GEN TAB 1 TABLET PO (08:01)
[2023-12-30] MEDS: ACETAMINOPHEN 325 MG TABLET 650 MG PO (08:05)
[2023-12-30 10:16] LABS: Partial Thromboplastin Time 91.2 Seconds (22.3-36.8)
[2023-12-30 10:27] LABS: Hematocrit 37.2 % (37.0-47.0); Hemoglobin 11.4 g/dL (12.0-15.0); Immature Platelet Fraction Pct 4.1 % (0.9-11.2); Mean Corpuscular HGB Conc 30.6 g/dl (32-36); Mean Corpuscular Hemoglobin 28.8 pg (26-34); Mean Corpuscular Volume 93.9 fl (80-100); Mean Platelet Volume 9.7 fl (7.4-10.4); Platelet Count Result 127 k/mm3 (150-375); Red Blood Count 3.96 M/mm3 (4.2-5.4); Red Cell Distribution Width 16.6 % (11.5-14.5); White Blood Count 8.8 K/mm3 (4.5-10.0)
--- NOTE | 2023-12-30 10:29 | PC.NURSE ---
0930- Multiple calls attempted this AM to lab and phlebotomy for 15 PTT lab draw for Hep gtt. Reported that they were short staffed and would be up shortly. Reported by PM shift RN that she had attempted as well. This RN was able to send down PTT after two attempts. PTT within hep gtt normal limits, no bolus or titration needed. Reorder at 1530 placed
[2023-12-30 10:32] LABS: Anion Gap 11 mmol/L (4-12); Blood Urea Nitrogen 40 mg/dL (7-17); Calcium 8.3 mg/dL (8.4-10.2); Carbon Dioxide 33 mmol/L (22-30); Chloride 89 mmol/L (98-107); Estimated Glomerular Filt Rate 42; Glucose 181 mg/dL (65-110); Magnesium 2.6 mg/dL (1.6-2.3); Potassium 4.3 mmol/L (3.4-5.0); Sodium 133 mmol/L (137-145)
[2023-12-30] MEDS: SODIUM CHLORIDE 0.9% IV 1,000 ML 75 ML IV CONT (11:14)
[2023-12-30 11:17] LABS: Band Neutrophils Percent 33 % (0-6); Lymphocytes Absolute Manual 0.08 K/mm3 (1.1-4.5); Monocytes Absolute Manual 0.17 K/mm3 (0.1-0.90); Monocytes Percent Manual 2 % (3-9); Neutrophils Absolute Manual 8.53 K/mm3 (1.7-7.2); Neutrophils Percent Manual 64 % (46-73); Total Cells Counted 100
[2023-12-30 11:18] LABS: Hypochromasia 1+; Platelet Estimate Slightly Decreased (Adequate); Schistocytes None Seen
[2023-12-30] MEDS: AZITHROMYCIN 500 MG/NS 250 ML 500 MG/250 ML BAG 250 MG IVPB (13:46)
[2023-12-30 16:01] LABS: Partial Thromboplastin Time 87.2 Seconds (22.3-36.8)
[2023-12-30] MEDS: oxyCODONE/ACETAMINOPHEN (*CRX) 5-325 MG TABLET 1 TABLET PO (20:20)
[2023-12-30] MEDS: PRAMIPEXOLE 0.5 MG TABLET PO (20:20)
[2023-12-30] MEDS: ATORVASTATIN 40 MG TABLET 80 MG PO (20:21)
[2023-12-30] MEDS: CITALOPRAM HYDROBROMIDE 20 MG TABLET PO (20:21)
[2023-12-30] MEDS: MIRTAZAPINE 15 MG TABLET PO (20:22)
--- NOTE | 2023-12-30 23:44 | P.PNCROSS_ITS ---
Event Note Event Note Event Note: Call received from the patient's nurse. One set of blood cultures is growing G halle-positive cocci in chains in the anaerobic bottle only. Chart reviewed. She is currently on cefepime and azithromycin for pneumonia. MRSA screen was negative and this is likely a strep organism (if not contaminant) which should be susceptible to cefepime. However given her multiple comorbidities, will restart vancomycin pending identification and sensitivities.
[2023-12-31] VITALS (27 sets, daily range): BP systolic 119–152; BP diastolic 62–87; PULSE 65–97; RESP 14–22; TEMP 36.4–36.8; O2SAT 88–100
[2023-12-31 05:32] LABS: Hematocrit 38.2 % (37.0-47.0); Hemoglobin 11.3 g/dL (12.0-15.0); Immature Platelet Fraction Pct 6.8 % (0.9-11.2); Mean Corpuscular HGB Conc 29.6 g/dl (32-36); Mean Corpuscular Volume 94.8 fl (80-100); Mean Platelet Volume 10.6 fl (7.4-10.4); Platelet Count Result 121 k/mm3 (150-375); Red Blood Count 4.03 M/mm3 (4.2-5.4); Red Cell Distribution Width 16.7 % (11.5-14.5); White Blood Count 10.2 K/mm3 (4.5-10.0)
[2023-12-31] MEDS: methylPREDNISolone SOD SUCC 125 MG VIAL 60 MG IV PUSH ×2 (05:37→13:45)
[2023-12-31] MEDS: oxyCODONE/ACETAMINOPHEN (*CRX) 5-325 MG TABLET 1 TABLET PO ×3 (05:37→20:34)
[2023-12-31 05:43] LABS: Partial Thromboplastin Time 69.4 Seconds (22.3-36.8)
[2023-12-31] MEDS: HEPARIN SOD/D5W 100 UNITS/ML 25,000 UNITS/250 ML BAG 8 UNITS IV CONT (05:46)
[2023-12-31 05:58] LABS: Alanine Aminotransferase 121 U/L (6-35); Albumin Level 3.5 g/dL (3.5-5.1); Alkaline Phosphatase 93 U/L (38-126); Anion Gap 6 mmol/L (4-12); Aspartate Amino Transferase 106 U/L (14-36); Blood Urea Nitrogen 37 mg/dL (7-17); Calcium 8.5 mg/dL (8.4-10.2); Carbon Dioxide 36 mmol/L (22-30); Chloride 95 mmol/L (98-107); Estimated Glomerular Filt Rate 52; Glucose 140 mg/dL (65-110); Potassium 4.5 mmol/L (3.4-5.0); Sodium 137 mmol/L (137-145)
[2023-12-31 06:11] LABS: Band Neutrophils Percent 19 % (0-6); Lymphocytes Percent Manual 3 % (18-44); Monocytes Absolute Manual 0.71 K/mm3 (0.1-0.90); Monocytes Percent Manual 7 % (3-9); Neutrophils Absolute Manual 8.77 K/mm3 (1.7-7.2); Neutrophils Percent Manual 67 % (46-73); Total Cells Counted 100
[2023-12-31 06:12] LABS: Eosinophils Percent Manual 1 % (0-4); Metamyelocytes Percent 3 %; Platelet Estimate Slightly Decreased (Adequate); Schistocytes None Seen
--- NOTE | 2023-12-31 06:52 | PM.IMPN ---
Progress Note: A&P Assessment and Plan (1) Sepsis: Code(s): A41.9 - Sepsis, unspecified organism Status: Acute Assessment and Plan: Meets SIRS criteria - lactic acid: 1.7 - suspected source: pneumonia - blood cultures drawn on 12/28: strep. pneumoniae - One-view chest x-ray: patchy and streaky bilateral lower lung opacities which are unchanged from last admission along with mild bilateral costophrenic angle blunting. - CT PE: Small left pleural fluid collection, segmental consolidation in the dependent portions of the bilateral lower lobes and right middle lobe, mild thoracic aortic ectasia, moderate atherosclerotic calcifications, no dissection, moderately enlarged subcarinal and bilateral hilar lymph nodes, hiatal hernia, patulous esophagus, LVH, multiple hepatic hypodensities likely representing cysts, multiple stable pancreatic cyst, multiple stable renal cyst, multiple stable compression deformities in the thoracolumbar junction, vertebroplasty cement at T12, small nonocclusive filling defects in this several left lower lobe segmental arteries, low clot burden. 12/30: Vitals remains stable. WBC has increased, however this is likely secondary to steroid use. Patient states she is feeling better and has returned to her baseline O2 supplementation. Discussed patient with ID pharm and will transition to rocephin based on blood culture results and continue the azithromycin treatment. (2) Acute on chronic respiratory failure with hypoxia and hypercapnia: Code(s): J96.21 - Acute and chronic respiratory failure with hypoxia; J96.22 - Acute and chronic respiratory failure with hypercapnia Status: Acute Assessment and Plan: Hypoxia secondary to pneumonia, COPD exacerbation and PE. Patient on 2L NC chronically for COPD, now requiring 3L to maintain saturations. Per chart review she still looked tachypneic and was placed on bipap with FIO2 of 50. She has since returned to her baseline O2. Wean O2 supplementation back to baseline as tolerated, maintain spo2 > 88% (3) Pulmonary embolism: Code(s): I26.99 - Other pulmonary embolism without acute cor pulmonale Status: Acute Assessment and Plan: Patient has paroxysmal atrial fibrillation. Hx of DVT, not on anticoagulation due to fall history. - Patient on 2L NC chronically for COPD, now requiring 4L to maintain saturations. Per chart review she still looked tachypeneic and was placed on bipap with FIO2 of 50. - One-view chest x-ray: patchy and streaky bilateral lower lung opacities which are unchanged from last admission along with mild bilateral costophrenic angle blunting. - CT PE: Small left pleural fluid collection, segmental consolidation in the dependent portions of the bilateral lower lobes and right middle lobe, mild thoracic aortic ectasia, moderate atherosclerotic calcifications, no dissection, moderately enlarged subcarinal and bilateral hilar lymph nodes, hiatal hernia, patulous esophagus, LVH, multiple hepatic hypodensities likely representing cysts, multiple stable pancreatic cyst, multiple stable renal cyst, multiple stable compression deformities in the thoracolumbar junction, vertebroplasty cement at T12, small nonocclusive filling defects in this several left lower lobe segmental arteries, low clot burden. - Echocardiogram to rule out cardiac strain: LVEF > 70% with grade I diastolic dysfunction - Heparin drip discontinued on 12/30, patient transitioned to eliquis 10 mg BID for 7 days and then will start 5 mg BID - Monitor vital signs, I&Os, shortness of breath and chest pain. Patient is a fall risk - Monitor serum electrolytes, PTT, CBC, WBC, temperature curve and cultures. - Monitor for bloody bowel movements,chest pain,SOB or dizziness/lightheadedness (4) Pneumonia: Code(s): J18.9 - Pneumonia, unspecified organism Status: Acute Assessment and Plan: - One-view chest x-ray: patchy and streaky bilateral lower lung opacities
[2023-12-31] MEDS: IPRATROPIUM 0.5 MG/ALBUTEROL SULFATE 2.5 MG AMPUL.NEB 3 ML INHALATION ×3 (07:15→20:15)
[2023-12-31 08:35] LABS: Partial Thromboplastin Time 64.5 Seconds (22.3-36.8)
[2023-12-31] MEDS: MIDODRINE HCL 2.5 MG TABLET 10 MG PO ×2 (08:48→16:50)
[2023-12-31] MEDS: OPTI-GEN TAB 1 TABLET PO (08:48)
[2023-12-31] MEDS: PANTOPRAZOLE 40 MG TABLET PO (08:48)
[2023-12-31] MEDS: ARIPiprazole 2 MG TABLET PO (08:48)
[2023-12-31] MEDS: DOCUSATE SODIUM 100 MG CAPSULE PO ×2 (08:49→16:50)
[2023-12-31] MEDS: MEMANTINE 5 MG TABLET PO ×2 (08:49→20:36)
[2023-12-31] MEDS: PREGABALIN (*CRX) 50 MG CAPSULE 100 MG PO ×2 (08:49→20:35)
[2023-12-31] MEDS: CEFEPIME 1 GM/NS 50 ML 1 GM/50 ML BAG IVPB (08:54)
[2023-12-31] MEDS: HEPARIN SODIUM 5,000 UNITS/ML VIAL 2000 UNITS IV PUSH (09:05)
[2023-12-31] MEDS: HEPARIN SOD/D5W 100 UNITS/ML 25,000 UNITS/250 ML BAG 9 UNITS IV CONT (09:07)
[2023-12-31] MEDS: AZITHROMYCIN 500 MG/NS 250 ML 500 MG/250 ML BAG 250 MG IVPB (12:23)
[2023-12-31 15:07] LABS: Partial Thromboplastin Time 80.5 Seconds (22.3-36.8)
--- NOTE | 2023-12-31 16:33 | PCSTNOTE ---
Please refer to the Bedside Swallow Evaluation in the EMR. Please note, silent aspiration cannot be ruled out at bedside.
[2023-12-31] MEDS: APIXABAN 5 MG TABLET 10 MG PO (16:51)
[2023-12-31] MEDS: MIRTAZAPINE 15 MG TABLET PO (20:34)
[2023-12-31] MEDS: ATORVASTATIN 40 MG TABLET 80 MG PO (20:35)
[2023-12-31] MEDS: PRAMIPEXOLE 0.5 MG TABLET PO (20:35)
[2023-12-31] MEDS: cefTRIAXone 2 GM/NS 100 ML 2 GM/100 ML BAG IVPB (20:36)
[2023-12-31] MEDS: CITALOPRAM HYDROBROMIDE 20 MG TABLET PO (20:36)
[2024-01-01] VITALS (22 sets, daily range): BP systolic 133–180; BP diastolic 65–96; PULSE 61–105; RESP 18–24; TEMP 36.2–37; O2SAT 92–100
[2024-01-01] MEDS: methylPREDNISolone SOD SUCC 125 MG VIAL 60 MG IV PUSH ×2 (00:48→06:18)
[2024-01-01] MEDS: IPRATROPIUM 0.5 MG/ALBUTEROL SULFATE 2.5 MG AMPUL.NEB 3 ML INHALATION ×3 (01:50→20:23)
[2024-01-01] MEDS: oxyCODONE/ACETAMINOPHEN (*CRX) 5-325 MG TABLET 1 TABLET PO ×4 (06:18→21:22)
[2024-01-01 07:45] LABS: Basophils Percent Auto 0.4 % (0.2-1.2); Eosinophils Absolute Auto 0.1 K/mm3 (0-0.3); Eosinophils Percent Auto 0.7 % (0-4.4); Hematocrit 34.5 % (37.0-47.0); Hemoglobin 10.2 g/dL (12.0-15.0); Immature Granulocyte Absolute 0.72 K/mm3 (0.00-0.031); Immature Granulocyte Percent A 8.1 % (0-0.5); Lymphocytes Absolute Auto 0.39 K/mm3 (0.9-3.2); Lymphocytes Percent Auto 4.4 % (18.3-44.2); Mean Corpuscular HGB Conc 29.6 g/dl (32-36); Mean Corpuscular Hemoglobin 28.3 pg (26-34); Mean Corpuscular Volume 95.8 fl (80-100); Mean Platelet Volume 10.9 fl (7.4-10.4); Monocytes Absolute Auto 0.4 K/mm3 (0.1-0.6); Monocytes Percent Auto 4.2 % (2.6-8.5); Neutrophils Absolute Auto 7.3 K/mm3 (1.3-6.7); Neutrophils Percent Auto 82.2 % (45.5-73.1); Platelet Count Result 133 k/mm3 (150-375); White Blood Count 8.9 K/mm3 (4.5-10.0)
[2024-01-01 07:59] LABS: Alanine Aminotransferase 113 U/L (6-35); Albumin Level 3.4 g/dL (3.5-5.1); Alkaline Phosphatase 93 U/L (38-126); Anion Gap 4 mmol/L (4-12); Aspartate Amino Transferase 59 U/L (14-36); Bilirubin,Total 0.3 mg/dL (0.2-1.3); Blood Urea Nitrogen 36 mg/dL (7-17); Calcium 8.2 mg/dL (8.4-10.2); Carbon Dioxide 38 mmol/L (22-30); Chloride 89 mmol/L (98-107); Estimated Glomerular Filt Rate 59; Glucose 132 mg/dL (65-110); Potassium 4.1 mmol/L (3.4-5.0); Sodium 131 mmol/L (137-145)
--- NOTE | 2024-01-01 08:23 | PM.IMPN ---
Progress Note: A&P Assessment and Plan (1) Sepsis: Code(s): A41.9 - Sepsis, unspecified organism Status: Acute Assessment and Plan: Meets SIRS criteria - lactic acid: 1.7 - suspected source: pneumonia - blood cultures drawn on 12/28: strep. pneumoniae, repeat cultures ordered on 12/31 - One-view chest x-ray: patchy and streaky bilateral lower lung opacities which are unchanged from last admission along with mild bilateral costophrenic angle blunting. - CT PE: Small left pleural fluid collection, segmental consolidation in the dependent portions of the bilateral lower lobes and right middle lobe, mild thoracic aortic ectasia, moderate atherosclerotic calcifications, no dissection, moderately enlarged subcarinal and bilateral hilar lymph nodes, hiatal hernia, patulous esophagus, LVH, multiple hepatic hypodensities likely representing cysts, multiple stable pancreatic cyst, multiple stable renal cyst, multiple stable compression deformities in the thoracolumbar junction, vertebroplasty cement at T12, small nonocclusive filling defects in this several left lower lobe segmental arteries, low clot burden. 12/30: Vitals remains stable. WBC has increased, however this is likely secondary to steroid use. Patient states she is feeling better and has returned to her baseline O2 supplementation. Discussed patient with ID pharm and will transition to rocephin based on blood culture results and continue the azithromycin treatment. (2) Acute on chronic respiratory failure with hypoxia and hypercapnia: Code(s): J96.21 - Acute and chronic respiratory failure with hypoxia; J96.22 - Acute and chronic respiratory failure with hypercapnia Status: Acute Assessment and Plan: Hypoxia secondary to pneumonia, COPD exacerbation and PE. Patient on 2L NC chronically for COPD, now requiring 3L to maintain saturations. Per chart review she still looked tachypneic and was placed on bipap with FIO2 of 50. - Remains on her baseline O2 of 2L NC with intermittent bipap use - Wean O2 supplementation back to baseline as tolerated, maintain spo2 > 88% (3) Pulmonary embolism: Code(s): I26.99 - Other pulmonary embolism without acute cor pulmonale Status: Acute Assessment and Plan: Patient has paroxysmal atrial fibrillation. Hx of DVT, not on anticoagulation due to fall history. - Patient on 2L NC chronically for COPD, now requiring 4L to maintain saturations. Per chart review she still looked tachypeneic and was placed on bipap with FIO2 of 50. - One-view chest x-ray: patchy and streaky bilateral lower lung opacities which are unchanged from last admission along with mild bilateral costophrenic angle blunting. - CT PE: Small left pleural fluid collection, segmental consolidation in the dependent portions of the bilateral lower lobes and right middle lobe, mild thoracic aortic ectasia, moderate atherosclerotic calcifications, no dissection, moderately enlarged subcarinal and bilateral hilar lymph nodes, hiatal hernia, patulous esophagus, LVH, multiple hepatic hypodensities likely representing cysts, multiple stable pancreatic cyst, multiple stable renal cyst, multiple stable compression deformities in the thoracolumbar junction, vertebroplasty cement at T12, small nonocclusive filling defects in this several left lower lobe segmental arteries, low clot burden. - Echocardiogram to rule out cardiac strain: LVEF > 70% with grade I diastolic dysfunction - Heparin drip discontinued on 12/30, patient transitioned to eliquis 10 mg BID for 7 days and then will start 5 mg BID - Monitor vital signs, I&Os, shortness of breath and chest pain. Patient is a fall risk - Monitor serum electrolytes, PTT, CBC, WBC, temperature curve and cultures. - Monitor for bloody bowel movements,chest pain,SOB or dizziness/lightheadedness (4) Pneumonia: Code(s): J18.9 - Pneumonia, unspecified organism Status: Acute Assessment and Plan: - One-view c
[2024-01-01] MEDS: PREGABALIN (*CRX) 50 MG CAPSULE 100 MG PO ×2 (09:39→21:12)
[2024-01-01] MEDS: APIXABAN 5 MG TABLET 10 MG PO ×2 (09:40→21:12)
[2024-01-01] MEDS: MIDODRINE HCL 2.5 MG TABLET 10 MG PO (09:40)
[2024-01-01] MEDS: MEMANTINE 5 MG TABLET PO ×2 (09:40→21:11)
[2024-01-01] MEDS: OPTI-GEN TAB 1 TABLET PO (09:40)
[2024-01-01] MEDS: PANTOPRAZOLE 40 MG TABLET PO (09:40)
[2024-01-01] MEDS: ARIPiprazole 2 MG TABLET PO (09:40)
[2024-01-01] MEDS: FERROUS SULFATE 325 MG TABLET DR BY MOUTH (09:40)
[2024-01-01] MEDS: DOCUSATE SODIUM 100 MG CAPSULE PO ×2 (09:40→17:53)
[2024-01-01] MEDS: BISACODYL 5 MG TABLET EC PO (09:49)
[2024-01-01 10:02] LABS: Hypochromasia 1+; Platelet Estimate Increased (Adequate)
[2024-01-01 10:03] LABS: Anisocytosis 1+
[2024-01-01 10:05] LABS: Schistocytes None Seen
--- NOTE | 2024-01-01 10:15 | PCSTNOTE ---
Please refer to the Modified Barium Swallow Evaluation in the EMR.
[2024-01-01] MEDS: AZITHROMYCIN 500 MG/NS 250 ML 500 MG/250 ML BAG 250 MG IVPB (12:29)
[2024-01-01] MEDS: methylPREDNISolone SOD SUCC 40 MG VIAL IV PUSH ×2 (15:05→21:12)
[2024-01-01] MEDS: cefTRIAXone 2 GM/NS 100 ML 2 GM/100 ML BAG IVPB (21:11)
[2024-01-01] MEDS: MIRTAZAPINE 15 MG TABLET PO (21:11)
[2024-01-01] MEDS: PRAMIPEXOLE 0.5 MG TABLET PO (21:11)
[2024-01-01] MEDS: CITALOPRAM HYDROBROMIDE 20 MG TABLET PO (21:11)
[2024-01-01] MEDS: SENNA/DOCUSATE SODIUM TABLET 1 TAB PO (21:12)
[2024-01-01] MEDS: ATORVASTATIN 40 MG TABLET 80 MG PO (21:12)
[2024-01-02] VITALS (28 sets, daily range): BP systolic 135–178; BP diastolic 55–95; PULSE 58–107; RESP 16–24; TEMP 36.2–36.7; O2SAT 68–100
[2024-01-02] MEDS: IPRATROPIUM 0.5 MG/ALBUTEROL SULFATE 2.5 MG AMPUL.NEB 3 ML INHALATION ×4 (02:10→20:04)
[2024-01-02] MEDS: oxyCODONE/ACETAMINOPHEN (*CRX) 5-325 MG TABLET 1 TABLET PO ×4 (03:50→20:50)
[2024-01-02 04:32] LABS: Basophils Percent Auto 0.3 % (0.2-1.2); Hematocrit 33.1 % (37.0-47.0); Hemoglobin 9.9 g/dL (12.0-15.0); Immature Granulocyte Absolute 0.14 K/mm3 (0.00-0.031); Immature Granulocyte Percent A 1.4 % (0-0.5); Lymphocytes Absolute Auto 0.67 K/mm3 (0.9-3.2); Lymphocytes Percent Auto 6.6 % (18.3-44.2); Mean Corpuscular HGB Conc 29.9 g/dl (32-36); Mean Corpuscular Hemoglobin 28.2 pg (26-34); Mean Corpuscular Volume 94.3 fl (80-100); Mean Platelet Volume 10.1 fl (7.4-10.4); Monocytes Absolute Auto 0.4 K/mm3 (0.1-0.6); Monocytes Percent Auto 3.8 % (2.6-8.5); Neutrophils Absolute Auto 8.9 K/mm3 (1.3-6.7); Neutrophils Percent Auto 87.9 % (45.5-73.1); Platelet Count Result 149 k/mm3 (150-375); Red Blood Count 3.51 M/mm3 (4.2-5.4); Red Cell Distribution Width 16.8 % (11.5-14.5); White Blood Count 10.1 K/mm3 (4.5-10.0)
[2024-01-02 04:54] LABS: Hypochromasia 1+; Platelet Estimate Slightly Decreased (Adequate)
[2024-01-02 04:55] LABS: Alanine Aminotransferase 87 U/L (6-35); Albumin Level 3.2 g/dL (3.5-5.1); Alkaline Phosphatase 91 U/L (38-126); Anion Gap 3 mmol/L (4-12); Anisocytosis 1+; Aspartate Amino Transferase 36 U/L (14-36); Bilirubin,Total 0.2 mg/dL (0.2-1.3); Blood Urea Nitrogen 37 mg/dL (7-17); Calcium 8.3 mg/dL (8.4-10.2); Carbon Dioxide 36 mmol/L (22-30); Chloride 97 mmol/L (98-107); Estimated Glomerular Filt Rate 47; Glucose 199 mg/dL (65-110); Microcytosis 1+ (NORMAL); Potassium 4.2 mmol/L (3.4-5.0); Schistocytes None Seen; Sodium 136 mmol/L (137-145)
[2024-01-02] MEDS: methylPREDNISolone SOD SUCC 40 MG VIAL IV PUSH ×3 (06:10→21:00)
--- NOTE | 2024-01-02 07:18 | PM.IMPN ---
Progress Note: A&P Assessment and Plan (1) Sepsis: Code(s): A41.9 - Sepsis, unspecified organism Status: Acute Assessment and Plan: Meets SIRS criteria - lactic acid: 1.7 - suspected source: pneumonia - blood cultures drawn on 12/28: strep. pneumoniae, repeat cultures ordered on 12/31 - One-view chest x-ray: patchy and streaky bilateral lower lung opacities which are unchanged from last admission along with mild bilateral costophrenic angle blunting. - CT PE: Small left pleural fluid collection, segmental consolidation in the dependent portions of the bilateral lower lobes and right middle lobe, mild thoracic aortic ectasia, moderate atherosclerotic calcifications, no dissection, moderately enlarged subcarinal and bilateral hilar lymph nodes, hiatal hernia, patulous esophagus, LVH, multiple hepatic hypodensities likely representing cysts, multiple stable pancreatic cyst, multiple stable renal cyst, multiple stable compression deformities in the thoracolumbar junction, vertebroplasty cement at T12, small nonocclusive filling defects in this several left lower lobe segmental arteries, low clot burden. 12/30: Vitals remains stable. WBC has increased, however this is likely secondary to steroid use. Patient states she is feeling better and has returned to her baseline O2 supplementation. Discussed patient with ID pharm and will transition to rocephin based on blood culture results and continue the azithromycin treatment. 01/01: Vitals remain stable. Patient continues to improve. She remains on IV antibiotics. (2) Acute on chronic respiratory failure with hypoxia and hypercapnia: Code(s): J96.21 - Acute and chronic respiratory failure with hypoxia; J96.22 - Acute and chronic respiratory failure with hypercapnia Status: Acute Assessment and Plan: Hypoxia secondary to pneumonia, COPD exacerbation and PE. Patient on 2L NC chronically for COPD, now requiring 3L to maintain saturations. Per chart review she still looked tachypneic and was placed on bipap with FIO2 of 50. - Remains on her baseline O2 of 2L NC with intermittent bipap use - Wean O2 supplementation back to baseline as tolerated, maintain spo2 > 88% (3) Pulmonary embolism: Code(s): I26.99 - Other pulmonary embolism without acute cor pulmonale Status: Acute Assessment and Plan: Patient has paroxysmal atrial fibrillation. Hx of DVT, not on anticoagulation due to fall history. - Patient on 2L NC chronically for COPD with intermittent BIPAP use - One-view chest x-ray: patchy and streaky bilateral lower lung opacities which are unchanged from last admission along with mild bilateral costophrenic angle blunting. - CT PE: Small left pleural fluid collection, segmental consolidation in the dependent portions of the bilateral lower lobes and right middle lobe, mild thoracic aortic ectasia, moderate atherosclerotic calcifications, no dissection, moderately enlarged subcarinal and bilateral hilar lymph nodes, hiatal hernia, patulous esophagus, LVH, multiple hepatic hypodensities likely representing cysts, multiple stable pancreatic cyst, multiple stable renal cyst, multiple stable compression deformities in the thoracolumbar junction, vertebroplasty cement at T12, small nonocclusive filling defects in this several left lower lobe segmental arteries, low clot burden. - Echocardiogram to rule out cardiac strain: LVEF > 70% with grade I diastolic dysfunction - Heparin drip discontinued on 12/30, patient transitioned to eliquis 10 mg BID for 7 days (ends 01/06) and then will start 5 mg BID - Monitor vital signs, I&Os, shortness of breath and chest pain. Patient is a fall risk - Monitor serum electrolytes, PTT, CBC, WBC, temperature curve and cultures. - Monitor for bloody bowel movements,chest pain,SOB or dizziness/lightheadedness (4) Pneumonia: Code(s): J18.9 - Pneumonia, unspecified organism Status: Acute Assessment and Plan: - One-view
[2024-01-02] MEDS: polyethylene glycoL 3350 17 GM POWD.PACK PO (08:41)
[2024-01-02] MEDS: PANTOPRAZOLE 40 MG TABLET PO (08:42)
[2024-01-02] MEDS: ARIPiprazole 2 MG TABLET PO (08:42)
[2024-01-02] MEDS: MEMANTINE 5 MG TABLET PO ×2 (08:43→20:50)
[2024-01-02] MEDS: PREGABALIN (*CRX) 50 MG CAPSULE 100 MG PO ×2 (08:44→20:50)
[2024-01-02] MEDS: DOCUSATE SODIUM 100 MG CAPSULE PO ×2 (08:44→16:35)
[2024-01-02] MEDS: APIXABAN 5 MG TABLET 10 MG PO ×2 (08:45→20:50)
[2024-01-02] MEDS: OPTI-GEN TAB 1 TABLET PO (09:04)
[2024-01-02] MEDS: hydrALAZINE HCL 20 MG/ML VIAL 10 MG IV PUSH (12:03)
--- NOTE | 2024-01-02 12:19 | PC.NURSE ---
Patient requested to be placed on BiPaP. RN placed BiPaP on and updated Rosario, RT.
--- NOTE | 2024-01-02 13:00 | PC.NURSE ---
BiPaP removed and 2L Nasal Canula placed per patient request.
[2024-01-02] MEDS: AZITHROMYCIN 500 MG/NS 250 ML 500 MG/250 ML BAG 250 MG IVPB (13:12)
--- NOTE | 2024-01-02 13:15 | PC.NURSE ---
Patient return bed to bed and BiPaP placed after patient c/o SOB.
[2024-01-02] MEDS: cefTRIAXone 2 GM/NS 100 ML 2 GM/100 ML BAG IVPB (20:49)
[2024-01-02] MEDS: CITALOPRAM HYDROBROMIDE 20 MG TABLET PO (20:50)
[2024-01-02] MEDS: PRAMIPEXOLE 0.5 MG TABLET PO (20:50)
[2024-01-02] MEDS: ATORVASTATIN 40 MG TABLET 80 MG PO (20:51)
[2024-01-02] MEDS: SENNA/DOCUSATE SODIUM TABLET 1 TAB PO (20:51)
[2024-01-02] MEDS: MIRTAZAPINE 15 MG TABLET PO (20:51)
[2024-01-03] VITALS (25 sets, daily range): BP systolic 119–195; BP diastolic 71–109; PULSE 67–132; RESP 18–25; TEMP 36.5–36.9; O2SAT 92–100
[2024-01-03] MEDS: IPRATROPIUM 0.5 MG/ALBUTEROL SULFATE 2.5 MG AMPUL.NEB 3 ML INHALATION ×4 (02:21→20:29)
[2024-01-03 04:33] LABS: Basophils Percent Auto 0.4 % (0.2-1.2); Hematocrit 33.5 % (37.0-47.0); Hemoglobin 10.1 g/dL (12.0-15.0); Immature Granulocyte Absolute 0.31 K/mm3 (0.00-0.031); Immature Granulocyte Percent A 3.8 % (0-0.5); Lymphocytes Absolute Auto 0.91 K/mm3 (0.9-3.2); Lymphocytes Percent Auto 11.2 % (18.3-44.2); Mean Corpuscular HGB Conc 30.1 g/dl (32-36); Mean Corpuscular Hemoglobin 28.1 pg (26-34); Mean Corpuscular Volume 93.3 fl (80-100); Mean Platelet Volume 9.8 fl (7.4-10.4); Monocytes Absolute Auto 0.3 K/mm3 (0.1-0.6); Monocytes Percent Auto 4.2 % (2.6-8.5); Neutrophils Absolute Auto 6.6 K/mm3 (1.3-6.7); Neutrophils Percent Auto 80.4 % (45.5-73.1); Platelet Count Result 147 k/mm3 (150-375); Red Blood Count 3.59 M/mm3 (4.2-5.4); Red Cell Distribution Width 17.1 % (11.5-14.5); White Blood Count 8.2 K/mm3 (4.5-10.0)
[2024-01-03 04:51] LABS: Alanine Aminotransferase 71 U/L (6-35); Albumin Level 3.2 g/dL (3.5-5.1); Alkaline Phosphatase 83 U/L (38-126); Anion Gap 2 mmol/L (4-12); Aspartate Amino Transferase 29 U/L (14-36); Bilirubin,Total 0.3 mg/dL (0.2-1.3); Blood Urea Nitrogen 33 mg/dL (7-17); Calcium 8.1 mg/dL (8.4-10.2); Carbon Dioxide 37 mmol/L (22-30); Chloride 99 mmol/L (98-107); Estimated Glomerular Filt Rate 59; Glucose 125 mg/dL (65-110); Potassium 4.8 mmol/L (3.4-5.0); Sodium 138 mmol/L (137-145)
[2024-01-03] MEDS: methylPREDNISolone SOD SUCC 40 MG VIAL IV PUSH ×2 (05:25→13:24)
[2024-01-03] MEDS: oxyCODONE/ACETAMINOPHEN (*CRX) 5-325 MG TABLET 1 TABLET PO ×2 (05:25→20:33)
--- NOTE | 2024-01-03 07:59 | P.PNIM_ITS ---
Progress Note: A&P Assessment and Plan (1) Sepsis: Code(s): A41.9 - Sepsis, unspecified organism Status: Acute Assessment and Plan: Meets SIRS criteria - lactic acid: 1.7 - suspected source: pneumonia - blood cultures drawn on 12/28: strep. pneumoniae - repeat blood cultures drawn on 12/31: NGTD - One-view chest x-ray: patchy and streaky bilateral lower lung opacities which are unchanged from last admission along with mild bilateral costophrenic angle blunting. - CT PE: Small left pleural fluid collection, segmental consolidation in the dependent portions of the bilateral lower lobes and right middle lobe, mild thoracic aortic ectasia, moderate atherosclerotic calcifications, no dissection, moderately enlarged subcarinal and bilateral hilar lymph nodes, hiatal hernia, patulous esophagus, LVH, multiple hepatic hypodensities likely representing cysts, multiple stable pancreatic cyst, multiple stable renal cyst, multiple stable compression deformities in the thoracolumbar junction, vertebroplasty cement at T12, small nonocclusive filling defects in this several left lower lobe segmental arteries, low clot burden. 12/30: Vitals remains stable. WBC has increased, however this is likely secondary to steroid use. Patient states she is feeling better and has returned to her baseline O2 supplementation. Discussed patient with ID pharm and will transition to rocephin based on blood culture results and continue the azithromycin treatment. 01/01: Vitals remain stable. Patient continues to improve. She remains on IV antibiotics. (2) Acute on chronic respiratory failure with hypoxia and hypercapnia: Code(s): J96.21 - Acute and chronic respiratory failure with hypoxia; J96.22 - Acute and chronic respiratory failure with hypercapnia Status: Acute Assessment and Plan: Hypoxia secondary to pneumonia, COPD exacerbation and PE. Patient on 2L NC chronically for COPD, now requiring 3L to maintain saturations. Per chart review she still looked tachypneic and was placed on bipap with FIO2 of 50. - Remains on her baseline O2 of 2L NC with intermittent bipap use - Wean O2 supplementation back to baseline as tolerated, maintain spo2 > 88% (3) Pulmonary embolism: Code(s): I26.99 - Other pulmonary embolism without acute cor pulmonale Status: Acute Assessment and Plan: Patient has paroxysmal atrial fibrillation. Hx of DVT, not on anticoagulation due to fall history. - Patient on 2L NC chronically for COPD with intermittent BIPAP use - One-view chest x-ray: patchy and streaky bilateral lower lung opacities which are unchanged from last admission along with mild bilateral costophrenic angle blunting. - CT PE: Small left pleural fluid collection, segmental consolidation in the dep endent portions of the bilateral lower lobes and right middle lobe, mild thoracic aortic ectasia, moderate atherosclerotic calcifications, no dissection, moderately enlarged subcarinal and bilateral hilar lymph nodes, hiatal hernia, patulous esophagus, LVH, multiple hepatic hypodensities likely representing cysts, multiple stable pancreatic cyst, multiple stable renal cyst, multiple stable compression deformities in the thoracolumbar junction, vertebroplasty cement at T12, small nonocclusive filling defects in this several left lower lobe segmental arteries, low clot burden. - Echocardiogram to rule out cardiac strain: LVEF > 70% with grade I diastolic dysfunction - Heparin drip discontinued on 12/30, patient transitioned to eliquis 10 mg BID for 7 days (ends 01/06) and then will start 5 mg BID - Monitor vital signs, I&Os, shortness of breath and chest pain. Patient is a fall risk - Mon
[2024-01-03] MEDS: ARIPiprazole 2 MG TABLET PO (09:12)
[2024-01-03] MEDS: PANTOPRAZOLE 40 MG TABLET PO (09:12)
[2024-01-03] MEDS: OPTI-GEN TAB 1 TABLET PO (09:13)
[2024-01-03] MEDS: MEMANTINE 5 MG TABLET PO ×2 (09:13→20:32)
[2024-01-03] MEDS: FERROUS SULFATE 325 MG TABLET DR BY MOUTH (09:13)
[2024-01-03] MEDS: DOCUSATE SODIUM 100 MG CAPSULE PO (09:13)
[2024-01-03] MEDS: PREGABALIN (*CRX) 50 MG CAPSULE 100 MG PO ×2 (09:13→20:33)
[2024-01-03] MEDS: APIXABAN 5 MG TABLET 10 MG PO ×2 (09:14→20:33)
[2024-01-03] MEDS: polyethylene glycoL 3350 17 GM POWD.PACK PO (09:26)
[2024-01-03] MEDS: hydrALAZINE HCL 20 MG/ML VIAL 10 MG IV PUSH (12:25)
--- NOTE | 2024-01-03 12:44 | PCOTNOTE ---
Attepted to see patient at this time, however RN advised this was not a good time. RN reported patient just had real bad coughing spell, with increased HR and BP. I just got her back down to the one-teens.
[2024-01-03] MEDS: AZITHROMYCIN 500 MG/NS 250 ML 500 MG/250 ML BAG 250 MG IVPB (13:24)
[2024-01-03] MEDS: FUROSEMIDE INJ 40 MG/4 ML VIAL IV PUSH (17:33)
[2024-01-03] MEDS: CITALOPRAM HYDROBROMIDE 20 MG TABLET PO (20:32)
[2024-01-03] MEDS: ATORVASTATIN 40 MG TABLET 80 MG PO (20:32)
[2024-01-03] MEDS: PRAMIPEXOLE 0.5 MG TABLET PO (20:33)
[2024-01-03] MEDS: MIRTAZAPINE 15 MG TABLET PO (20:33)
[2024-01-03] MEDS: SENNA/DOCUSATE SODIUM TABLET 1 TAB PO (20:33)
[2024-01-03] MEDS: cefTRIAXone 2 GM/NS 100 ML 2 GM/100 ML BAG IVPB (20:36)
[2024-01-04] VITALS (26 sets, daily range): BP systolic 90–197; BP diastolic 63–104; PULSE 62–110; RESP 18–24; TEMP 35.9–37.1; O2SAT 92–100
[2024-01-04] MEDS: IPRATROPIUM 0.5 MG/ALBUTEROL SULFATE 2.5 MG AMPUL.NEB 3 ML INHALATION ×3 (02:05→13:31)
[2024-01-04] MEDS: oxyCODONE/ACETAMINOPHEN (*CRX) 5-325 MG TABLET 1 TABLET PO ×3 (03:22→18:26)
[2024-01-04 05:14] LABS: Basophils Absolute Auto 0.1 K/mm3 (0.0-0.1); Basophils Percent Auto 0.7 % (0.2-1.2); Eosinophils Absolute Auto 0.1 K/mm3 (0-0.3); Eosinophils Percent Auto 1.1 % (0-4.4); Hematocrit 36.4 % (37.0-47.0); Immature Granulocyte Absolute 0.68 K/mm3 (0.00-0.031); Immature Granulocyte Percent A 7.6 % (0-0.5); Lymphocytes Absolute Auto 2.35 K/mm3 (0.9-3.2); Lymphocytes Percent Auto 26.4 % (18.3-44.2); Mean Corpuscular HGB Conc 30.2 g/dl (32-36); Mean Corpuscular Hemoglobin 27.8 pg (26-34); Mean Corpuscular Volume 92.2 fl (80-100); Mean Platelet Volume 9.7 fl (7.4-10.4); Monocytes Absolute Auto 0.8 K/mm3 (0.1-0.6); Monocytes Percent Auto 9.1 % (2.6-8.5); Neutrophils Absolute Auto 4.9 K/mm3 (1.3-6.7); Neutrophils Percent Auto 55.1 % (45.5-73.1); Platelet Count Result 190 k/mm3 (150-375); Red Blood Count 3.95 M/mm3 (4.2-5.4); Red Cell Distribution Width 16.9 % (11.5-14.5); White Blood Count 8.9 K/mm3 (4.5-10.0)
[2024-01-04 05:37] LABS: Platelet Estimate Adequate (Adequate)
[2024-01-04 05:37] LABS: Alanine Aminotransferase 70 U/L (6-35); Albumin Level 3.2 g/dL (3.5-5.1); Alkaline Phosphatase 80 U/L (38-126); Aspartate Amino Transferase 33 U/L (14-36); Bilirubin,Total 0.3 mg/dL (0.2-1.3); Blood Urea Nitrogen 29 mg/dL (7-17); Calcium 8.6 mg/dL (8.4-10.2); Carbon Dioxide > 40 mmol/L (22-30); Chloride 94 mmol/L (98-107); Estimated Glomerular Filt Rate 59; Glucose 100 mg/dL (65-110); Potassium 4.5 mmol/L (3.4-5.0); Sodium 139 mmol/L (137-145)
[2024-01-04 05:38] LABS: Anisocytosis 1+; Ovalocytes 1+; Schistocytes None Seen
--- NOTE | 2024-01-04 08:11 | PM.IMPN ---
Progress Note: A&P Assessment and Plan (1) Sepsis: Code(s): A41.9 - Sepsis, unspecified organism Status: Acute Assessment and Plan: Meets SIRS criteria - lactic acid: 1.7 - suspected source: pneumonia - blood cultures drawn on 12/28: strep. pneumoniae - repeat blood cultures drawn on 12/31: NGTD - One-view chest x-ray: patchy and streaky bilateral lower lung opacities which are unchanged from last admission along with mild bilateral costophrenic angle blunting. - CT PE: Small left pleural fluid collection, segmental consolidation in the dependent portions of the bilateral lower lobes and right middle lobe, mild thoracic aortic ectasia, moderate atherosclerotic calcifications, no dissection, moderately enlarged subcarinal and bilateral hilar lymph nodes, hiatal hernia, patulous esophagus, LVH, multiple hepatic hypodensities likely representing cysts, multiple stable pancreatic cyst, multiple stable renal cyst, multiple stable compression deformities in the thoracolumbar junction, vertebroplasty cement at T12, small nonocclusive filling defects in this several left lower lobe segmental arteries, low clot burden. 12/30: Vitals remains stable. WBC has increased, however this is likely secondary to steroid use. Patient states she is feeling better and has returned to her baseline O2 supplementation. Discussed patient with ID pharm and will transition to rocephin based on blood culture results and continue the azithromycin treatment. 01/01: Vitals remain stable. Patient continues to improve. She remains on IV antibiotics. 01/03: Patient has been consistently hypertensive. Home medication is midodrine 10 BID, however this was DC. Started on amlodipine 5 mg daily, resumed her lasix 20 mg daily and hydralazine ordered as needed. (2) Acute on chronic respiratory failure with hypoxia and hypercapnia: Code(s): J96.21 - Acute and chronic respiratory failure with hypoxia; J96.22 - Acute and chronic respiratory failure with hypercapnia Status: Acute Assessment and Plan: Hypoxia secondary to pneumonia, COPD exacerbation and PE. Patient on 2L NC chronically for COPD, now requiring 3L to maintain saturations. Per chart review she still looked tachypneic and was placed on bipap with FIO2 of 50. - Remains on her baseline O2 of 2L NC with intermittent bipap use - Wean O2 supplementation back to baseline as tolerated, maintain spo2 > 88% (3) Pulmonary embolism: Code(s): I26.99 - Other pulmonary embolism without acute cor pulmonale Status: Acute Assessment and Plan: Patient has paroxysmal atrial fibrillation. Hx of DVT, not on anticoagulation due to fall history. - Patient on 2L NC chronically for COPD with intermittent BIPAP use - One-view chest x-ray: patchy and streaky bilateral lower lung opacities which are unchanged from last admission along with mild bilateral costophrenic angle blunting. - CT PE: Small left pleural fluid collection, segmental consolidation in the dependent portions of the bilateral lower lobes and right middle lobe, mild thoracic aortic ectasia, moderate atherosclerotic calcifications, no dissection, moderately enlarged subcarinal and bilateral hilar lymph nodes, hiatal hernia, patulous esophagus, LVH, multiple hepatic hypodensities likely representing cysts, multiple stable pancreatic cyst, multiple stable renal cyst, multiple stable compression deformities in the thoracolumbar junction, vertebroplasty cement at T12, small nonocclusive filling defects in this several left lower lobe segmental arteries, low clot burden. - Echocardiogram to rule out cardiac strain: LVEF > 70% with grade I diastolic dysfunction - Heparin drip discontinued on 12/30, patient transitioned to eliquis 10 mg BID for 7 days (ends 01/06) and then will start 5 mg BID - Monitor vital signs, I&Os, shortness of breath and chest pain. Patient is a fall risk - Monitor serum electrolytes, PTT, CBC, WBC, temperature curve and cultur
[2024-01-04] MEDS: ARIPiprazole 2 MG TABLET PO (08:13)
[2024-01-04] MEDS: PANTOPRAZOLE 40 MG TABLET PO (08:13)
[2024-01-04] MEDS: hydrALAZINE HCL 20 MG/ML VIAL 10 MG IV PUSH (08:13)
[2024-01-04] MEDS: APIXABAN 5 MG TABLET 10 MG PO ×2 (08:13→20:30)
[2024-01-04] MEDS: PREGABALIN (*CRX) 50 MG CAPSULE 100 MG PO ×2 (08:14→20:31)
[2024-01-04] MEDS: OPTI-GEN TAB 1 TABLET PO (08:14)
[2024-01-04] MEDS: MEMANTINE 5 MG TABLET PO ×2 (08:14→20:30)
[2024-01-04] MEDS: amLODIPine BESYLATE 5 MG TABLET PO (08:58)
[2024-01-04] MEDS: FUROSEMIDE 20 MG TABLET PO (08:59)
--- NOTE | 2024-01-04 14:49 | PCSTNOTE ---
The patient treatment was not able to be completed on 01/03 due to patient asleep and on BiPAP and had told RN she was exhausted and wanted to sleep. Will plan to continue treatment per plan of care tomorrow.
[2024-01-04 18:28] LABS: Pneumococcal Antigen Urine DETECTED
[2024-01-04] MEDS: DOCUSATE SODIUM 100 MG CAPSULE PO (20:30)
[2024-01-04] MEDS: MIRTAZAPINE 15 MG TABLET PO (20:31)
[2024-01-04] MEDS: ATORVASTATIN 40 MG TABLET 80 MG PO (20:31)
[2024-01-04] MEDS: CITALOPRAM HYDROBROMIDE 20 MG TABLET PO (20:31)
[2024-01-04] MEDS: SENNA/DOCUSATE SODIUM TABLET 1 TAB PO (20:31)
[2024-01-04] MEDS: AMOXICILLIN/CLAVULANATE K 500-125 MG TAB 1 TABLET PO (20:31)
[2024-01-04] MEDS: PRAMIPEXOLE 0.5 MG TABLET PO (22:37)
[2024-01-05] VITALS (28 sets, daily range): BP systolic 92–145; BP diastolic 51–79; PULSE 62–129; RESP 18–25; TEMP 36.3–37.2; O2SAT 89–100
[2024-01-05 02:38] LABS: Legionella pneumophila Ag Ur NOT DETECTED
[2024-01-05] MEDS: IPRATROPIUM 0.5 MG/ALBUTEROL SULFATE 2.5 MG AMPUL.NEB 3 ML INHALATION ×5 (02:54→20:38)
[2024-01-05] MEDS: AMOXICILLIN/CLAVULANATE K 500-125 MG TAB 1 TABLET PO ×3 (05:36→23:26)
--- NOTE | 2024-01-05 07:23 | PC.NURSE ---
Patient request to be DNR/DNI. Her sister was at the bedside as a witness to the conversation. This RN, will inform provider.
--- NOTE | 2024-01-05 08:07 | PM.IMPN ---
Progress Note: A&P Assessment and Plan (1) Sepsis: Code(s): A41.9 - Sepsis, unspecified organism Status: Acute Assessment and Plan: Meets SIRS criteria - lactic acid: 1.7 - suspected source: pneumonia - blood cultures drawn on 12/28: strep. pneumoniae - repeat blood cultures drawn on 12/31: NGTD - One-view chest x-ray: patchy and streaky bilateral lower lung opacities which are unchanged from last admission along with mild bilateral costophrenic angle blunting. - CT PE: Small left pleural fluid collection, segmental consolidation in the dependent portions of the bilateral lower lobes and right middle lobe, mild thoracic aortic ectasia, moderate atherosclerotic calcifications, no dissection, moderately enlarged subcarinal and bilateral hilar lymph nodes, hiatal hernia, patulous esophagus, LVH, multiple hepatic hypodensities likely representing cysts, multiple stable pancreatic cyst, multiple stable renal cyst, multiple stable compression deformities in the thoracolumbar junction, vertebroplasty cement at T12, small nonocclusive filling defects in this several left lower lobe segmental arteries, low clot burden. 12/30: Vitals remains stable. WBC has increased, however this is likely secondary to steroid use. Patient states she is feeling better and has returned to her baseline O2 supplementation. Discussed patient with ID pharm and will transition to rocephin based on blood culture results and continue the azithromycin treatment. 01/01: Vitals remain stable. Patient continues to improve. She remains on IV antibiotics. 01/03: Patient has been consistently hypertensive. Home medication is midodrine 10 BID, however this was DC. Started on amlodipine 5 mg daily, resumed her lasix 20 mg daily and hydralazine ordered as needed. 01/04: Patient BP appears well controlled on amlodipine. She continues to become tachycardic. (2) Acute on chronic respiratory failure with hypoxia and hypercapnia: Code(s): J96.21 - Acute and chronic respiratory failure with hypoxia; J96.22 - Acute and chronic respiratory failure with hypercapnia Status: Acute Assessment and Plan: Hypoxia secondary to pneumonia, COPD exacerbation and PE. Patient on 2L NC chronically for COPD, now requiring 3L to maintain saturations. Per chart review she still looked tachypneic and was placed on bipap with FIO2 of 50. - Remains on her baseline O2 of 2L NC with intermittent bipap use - Wean O2 supplementation back to baseline as tolerated, maintain spo2 > 88% (3) Pulmonary embolism: Code(s): I26.99 - Other pulmonary embolism without acute cor pulmonale Status: Acute Assessment and Plan: Patient has paroxysmal atrial fibrillation. Hx of DVT, not on anticoagulation due to fall history. - Patient on 2L NC chronically for COPD with intermittent BIPAP use - One-view chest x-ray: patchy and streaky bilateral lower lung opacities which are unchanged from last admission along with mild bilateral costophrenic angle blunting. - CT PE: Small left pleural fluid collection, segmental consolidation in the dependent portions of the bilateral lower lobes and right middle lobe, mild thoracic aortic ectasia, moderate atherosclerotic calcifications, no dissection, moderately enlarged subcarinal and bilateral hilar lymph nodes, hiatal hernia, patulous esophagus, LVH, multiple hepatic hypodensities likely representing cysts, multiple stable pancreatic cyst, multiple stable renal cyst, multiple stable compression deformities in the thoracolumbar junction, vertebroplasty cement at T12, small nonocclusive filling defects in this several left lower lobe segmental arteries, low clot burden. - Echocardiogram to rule out cardiac strain: LVEF > 70% with grade I diastolic dysfunction - Heparin drip discontinued on 12/30, patient transitioned to eliquis 10 mg BID for 7 days (ends 01/06) and then will start 5 mg BID - Monitor vital signs, I&Os, shortness of breath and chest pain.
[2024-01-05] MEDS: APIXABAN 5 MG TABLET 10 MG PO ×2 (08:45→20:10)
[2024-01-05] MEDS: amLODIPine BESYLATE 5 MG TABLET PO (08:46)
[2024-01-05] MEDS: PANTOPRAZOLE 40 MG TABLET PO (08:46)
[2024-01-05] MEDS: ARIPiprazole 2 MG TABLET PO (08:46)
[2024-01-05] MEDS: OPTI-GEN TAB 1 TABLET PO (08:46)
[2024-01-05] MEDS: DOCUSATE SODIUM 100 MG CAPSULE PO ×2 (08:46→16:31)
[2024-01-05] MEDS: MEMANTINE 5 MG TABLET PO ×2 (08:46→20:12)
[2024-01-05] MEDS: FERROUS SULFATE 325 MG TABLET DR BY MOUTH (08:46)
[2024-01-05] MEDS: PREGABALIN (*CRX) 50 MG CAPSULE 100 MG PO ×2 (08:46→20:12)
[2024-01-05] MEDS: FUROSEMIDE 20 MG TABLET PO (08:47)
--- NOTE | 2024-01-05 09:08 | PCNWS ---
Weekly nutritional screen. Patient is tolerating current heart healthy diet with adequate intake 75%. No weight loss reported. No nutritional needs at this time.
[2024-01-05] MEDS: oxyCODONE/ACETAMINOPHEN (*CRX) 5-325 MG TABLET 1 TABLET PO ×3 (10:38→23:08)
--- NOTE | 2024-01-05 11:31 | PCPTNOTE ---
Attempted to see patient for PT, however patient just got lunch and wanted to eat lunch before working with PT.
[2024-01-05] MEDS: polyethylene glycoL 3350 17 GM POWD.PACK PO (16:31)
--- NOTE | 2024-01-05 18:01 | PC.NURSE ---
Patient request an order for Macrobid upon discharge. States I normally take it at home and the last time I was discharged without it I ended up with a UTI and was back in the hospital within 5 days.
[2024-01-05] MEDS: ATORVASTATIN 40 MG TABLET 80 MG PO (20:11)
[2024-01-05] MEDS: CITALOPRAM HYDROBROMIDE 20 MG TABLET PO (20:11)
[2024-01-05] MEDS: MIRTAZAPINE 15 MG TABLET PO (20:12)
[2024-01-05] MEDS: SENNA/DOCUSATE SODIUM TABLET 1 TAB PO (20:12)
[2024-01-05] MEDS: PRAMIPEXOLE 0.5 MG TABLET PO (20:13)
[2024-01-06] VITALS (19 sets, daily range): BP systolic 90–132; BP diastolic 53–73; PULSE 78–101; RESP 18–24; TEMP 36.4–36.9; O2SAT 91–100
[2024-01-06] MEDS: IPRATROPIUM 0.5 MG/ALBUTEROL SULFATE 2.5 MG AMPUL.NEB 3 ML INHALATION ×3 (02:39→12:53)
[2024-01-06] MEDS: AMOXICILLIN/CLAVULANATE K 500-125 MG TAB 1 TABLET PO ×2 (06:39→13:12)
[2024-01-06] MEDS: oxyCODONE/ACETAMINOPHEN (*CRX) 5-325 MG TABLET 1 TABLET PO ×2 (06:42→16:08)
[2024-01-06] MEDS: PREGABALIN (*CRX) 50 MG CAPSULE 100 MG PO (09:19)
[2024-01-06] MEDS: amLODIPine BESYLATE 5 MG TABLET PO (09:19)
[2024-01-06] MEDS: PANTOPRAZOLE 40 MG TABLET PO (09:19)
[2024-01-06] MEDS: FUROSEMIDE 20 MG TABLET PO (09:19)
[2024-01-06] MEDS: MEMANTINE 5 MG TABLET PO (09:19)
[2024-01-06] MEDS: ARIPiprazole 2 MG TABLET PO (09:19)
[2024-01-06] MEDS: DOCUSATE SODIUM 100 MG CAPSULE PO (09:19)
[2024-01-06] MEDS: OPTI-GEN TAB 1 TABLET PO (09:20)
[2024-01-06] MEDS: APIXABAN 5 MG TABLET 10 MG PO (09:20)
--- NOTE | 2024-01-06 10:25 | P.PNIM_ITS ---
Progress Note: A&P Assessment and Plan (1) Sepsis: Code(s): A41.9 - Sepsis, unspecified organism Status: Acute Assessment and Plan: Meets SIRS criteria - lactic acid: 1.7 - suspected source: pneumonia - blood cultures drawn on 12/28: strep. pneumoniae - repeat blood cultures drawn on 12/31: NGTD - One-view chest x-ray: patchy and streaky bilateral lower lung opacities which are unchanged from last admission along with mild bilateral costophrenic angle blunting. - CT PE: Small left pleural fluid collection, segmental consolidation in the dependent portions of the bilateral lower lobes and right middle lobe, mild thoracic aortic ectasia, moderate atherosclerotic calcifications, no dissection, moderately enlarged subcarinal and bilateral hilar lymph nodes, hiatal hernia, patulous esophagus, LVH, multiple hepatic hypodensities likely representing cysts, multiple stable pancreatic cyst, multiple stable renal cyst, multiple stable compression deformities in the thoracolumbar junction, vertebroplasty cement at T12, small nonocclusive filling defects in this several left lower lobe segmental arteries, low clot burden. 12/30: Vitals remains stable. WBC has increased, however this is likely secondary to steroid use. Patient states she is feeling better and has returned to her baseline O2 supplementation. Discussed patient with ID pharm and will transition to rocephin based on blood culture results and continue the azithromycin treatment. 01/01: Vitals remain stable. Patient continues to improve. She remains on IV antibiotics. 01/03: Patient has been consistently hypertensive. Home medication is midodrine 10 BID, however this was DC. Started on amlodipine 5 mg daily, resumed her lasix 20 mg daily and hydralazine ordered as needed. 01/04: Patient BP appears well controlled on amlodipine. She continues to become tachycardic. (2) Acute on chronic respiratory failure with hypoxia and hypercapnia: Code(s): J96.21 - Acute and chronic respiratory failure with hypoxia; J96.22 - Acute and chronic respiratory failure with hypercapnia Status: Acute Assessment and Plan: Hypoxia secondary to pneumonia, COPD exacerbation and PE. Patient on 2L NC chronically for COPD, now requiring 3L to maintain saturations. Per chart review she still looked tachypneic and was placed on bipap with FIO2 of 50. - Remains on her baseline O2 of 2L NC with intermittent bipap use - Wean O2 supplementation back to baseline as tolerated, maintain spo2 > 88% (3) Pulmonary embolism: Code(s): I26.99 - Other pulmonary embolism without acute cor pulmonale Status: Acute Assessment and Plan: Patient has paroxysmal atrial fibrillation. Hx of DVT, not on anticoagulation due to fall history. - Patient on 2L NC chronically for COPD with intermittent BIPAP use - One-view chest x-ray: patchy and streaky bilateral lower lung opacities which are unchanged from last admission along with mild bilateral costophrenic angle blunting. - CT PE: Small left pleural fluid collection, segmental consolidation in the dependent portions of the bilateral lower lobes and right middle lobe, mild thoracic aortic ectasia, moderate atherosclerotic calcifications, no dissection, moderately enlarged subcarinal and bilateral hilar lymph nodes, hiatal hernia, patulous esophagus, LVH, multiple hepatic hypodensities likely representing cysts, multiple stable pancreatic cyst, multiple stable renal cyst, multiple stable compression deformities in the thoracolumbar junction, vertebroplasty cement at T12, small nonocclusive filling defects in this several left lower lobe segmental arteries, low clot burden. - Echocar
--- NOTE | 2024-01-06 14:10 | PM.DS ---
DS: Admitting Diagnosis Discharge Date 01/05 Admitting Diagnosis sob DS: Discharge Diagnosis Discharge Diagnosis (1) Sepsis: Code(s): A41.9 - Sepsis, unspecified organism Status: Acute Assessment and Plan: Meets SIRS criteria - lactic acid: 1.7 - suspected source: pneumonia - blood cultures drawn on 12/28: strep. pneumoniae - repeat blood cultures drawn on 12/31: NGTD - One-view chest x-ray: patchy and streaky bilateral lower lung opacities which are unchanged from last admission along with mild bilateral costophrenic angle blunting. - CT PE: Small left pleural fluid collection, segmental consolidation in the dependent portions of the bilateral lower lobes and right middle lobe, mild thoracic aortic ectasia, moderate atherosclerotic calcifications, no dissection, moderately enlarged subcarinal and bilateral hilar lymph nodes, hiatal hernia, patulous esophagus, LVH, multiple hepatic hypodensities likely representing cysts, multiple stable pancreatic cyst, multiple stable renal cyst, multiple stable compression deformities in the thoracolumbar junction, vertebroplasty cement at T12, small nonocclusive filling defects in this several left lower lobe segmental arteries, low clot burden. 12/30: Vitals remains stable. WBC has increased, however this is likely secondary to steroid use. Patient states she is feeling better and has returned to her baseline O2 supplementation. Discussed patient with ID pharm and will transition to rocephin based on blood culture results and continue the azithromycin treatment. 01/01: Vitals remain stable. Patient continues to improve. She remains on IV antibiotics. 01/03: Patient has been consistently hypertensive. Home medication is midodrine 10 BID, however this was DC. Started on amlodipine 5 mg daily, resumed her lasix 20 mg daily and hydralazine ordered as needed. 01/04: Patient BP appears well controlled on amlodipine. She continues to become tachycardic. 01/05- stable (2) Acute on chronic respiratory failure with hypoxia and hypercapnia: Code(s): J96.21 - Acute and chronic respiratory failure with hypoxia; J96.22 - Acute and chronic respiratory failure with hypercapnia Status: Acute Assessment and Plan: Hypoxia secondary to pneumonia, COPD exacerbation and PE. Patient on 2L NC chronically for COPD, now requiring 3L to maintain saturations. Per chart review she still looked tachypneic and was placed on bipap with FIO2 of 50. - Remains on her baseline O2 of 2L NC with intermittent bipap use - Wean O2 supplementation back to baseline as tolerated, maintain spo2 > 88% (3) Pulmonary embolism: Code(s): I26.99 - Other pulmonary embolism without acute cor pulmonale Status: Acute Assessment and Plan: Patient has paroxysmal atrial fibrillation. Hx of DVT, not on anticoagulation due to fall history. - Patient on 2L NC chronically for COPD with intermittent BIPAP use - One-view chest x-ray: patchy and streaky bilateral lower lung opacities which are unchanged from last admission along with mild bilateral costophrenic angle blunting. - CT PE: Small left pleural fluid collection, segmental consolidation in the dependent portions of the bilateral lower lobes and right middle lobe, mild thoracic aortic ectasia, moderate atherosclerotic calcifications, no dissection, moderately enlarged subcarinal and bilateral hilar lymph nodes, hiatal hernia, patulous esophagus, LVH, multiple hepatic hypodensities likely representing cysts, multiple stable pancreatic cyst, multiple stable renal cyst, multiple stable compression deformities in the thoracolumbar junction, vertebroplasty cement at T12, small nonocclusive filling defects in this several left lower lobe segmental arteries, low clot burden. - Echocardiogram to rule out cardiac strain: LVEF > 70% with grade I diastolic dysfunction - Heparin drip discontinued on 12/30, patient transitioned to eliquis 10 mg BID for 7 days (ends 01/06) and
--- NOTE | 2024-01-06 15:17 | PC.NURSE ---
On 01/06/24, the student, Demetrio [facility], provided care and completed [facility] documentation on this patient. I have reviewed the student's documentation and agree with the findings.
== END 2024-01-06 16:18 | DRG 871 ==
LOC: ANHED 19:33 → ANHIMU 23:24
PROVIDERS: Emergency Medicine; Student in an Organized Health Care Education/Training Program; Admitting Provider General Practice; Emergency Provider Emergency Medicine; PCP Physician Assistant; Visit Provider Nurse Practitioner
DX: A41.9 Sepsis, unspecified organism (principal); I26.99 Other pulmonary embolism without acute cor pulmonale; J18.9 Pneumonia, unspecified organism; J96.22 Acute and chronic respiratory failure with hypercapnia; J96.21 Acute and chronic respiratory failure with hypoxia; S32.009A Unspecified fracture of unspecified lumbar vertebra, initial encounter for closed fracture; J44.0 Chronic obstructive pulmonary disease with (acute) lower respiratory infection; J44.1 Chronic obstructive pulmonary disease with (acute) exacerbation; I50.32 Chronic diastolic (congestive) heart failure; I48.20 Chronic atrial fibrillation, unspecified; Z20.822 Contact with and (suspected) exposure to COVID-19; B95.3 Streptococcus pneumoniae as the cause of diseases classified elsewhere; K21.9 Gastro-esophageal reflux disease without esophagitis; G89.4 Chronic pain syndrome; F41.8 Other specified anxiety disorders; G47.33 Obstructive sleep apnea (adult) (pediatric); I11.0 Hypertensive heart disease with heart failure; D50.9 Iron deficiency anemia, unspecified; E78.5 Hyperlipidemia, unspecified; K44.9 Diaphragmatic hernia without obstruction or gangrene; Z86.718 Personal history of other venous thrombosis and embolism; Z98.1 Arthrodesis status; Z90.49 Acquired absence of other specified parts of digestive tract; Z98.49 Cataract extraction status, unspecified eye; Z90.710 Acquired absence of both cervix and uterus; Z87.891 Personal history of nicotine dependence; E66.9 Obesity, unspecified; Z68.35 Body mass index [BMI] 35.0-35.9, adult; Z66 Do not resuscitate; X58.XXXA Exposure to other specified factors, initial encounter; R41.9 Unspecified symptoms and signs involving cognitive functions and awareness
CPT/HCPCS: 36415; 36600; 71045; 71046; 71275; 80048; 80053; 82805; 82810; 83605; 83735; 83880; 85025; 85055; 85730; 87040; 87077; 87181; 87449; 87637; 87641; 87899; 92526; 92610; 92611; 93005; 93306; 94003; 94640; 96365; 97110; 97116; 97161; 97165; 97530; 97535; 99285; A9270; J0360; J0456; J0692; J0696; J1644; J1940; J2919; J3370; J3475; J7030; J7120; Q9967

== ENCOUNTER 2024-01-06 17:01 | Inpatient (IN) | payer MEDICARE, SELFPAY ==
--- NOTE | ~2024-01-06 | XR_ITS ---
EXAMINATION: XR chest 1V portable Exam Date/Time: 01/17/2024 14:37 CDT HISTORY: SOB/Cough Comparison: 01/14/2024. RESULT: Lines, tubes, and devices: Partially visualized cervical fusion hardware. Vertebroplasty cement in a lower thoracic vertebral body. Lungs and pleura: Low volumes. Persistent segmental left basilar and subsegmental right basilar opac ities. Minimal left costophrenic angle blunting. Cardiomediastinal silhouette: Stable. Other: No acute osseous or upper abdominal finding. IMPRESSION: Bibasilar atelectasis/consolidation. Small left pleural effusion Reviewed, dictated and finalized at location K.
--- NOTE | ~2024-01-06 | XR_ITS ---
Portable chest x-ray Comparison: 01/03/2024 Clinical History: Shortness of breath Findings: Stable retrocardiac airspace disease the left lung base. Possible minimal left pleural eff usion. There is minimal haziness right lung base. Cardiomediastinal silhouette is stable. Bones and soft tissues are unremarkable. Impression: Stable bibasilar airspace disease, left worse than right. Correlate for pulmonary edema/atelectasis v ersus pneumonia. Minimal left pleural effusion. Reviewed, dictated and finalized at location . Impression: Stable bibasilar airspace disease, left worse than right. Correlate for pulmona ry edema/atelectasis versus pneumonia. Minimal left pleural effusion.
--- NOTE | 2024-01-06 17:15 | ADMGEN ---
This patient, Jazmin Bullard, was admitted to 2nd Floor Room 210-1. Patient/family oriented to hospital policies and general routines including ID bracelet, bed and alarms, visiting hours, pain management, procedures, bathroom and other care routines, personal items, smoking policy, room service/diet, and visiting hours. Information on how to activate the Rapid Response Team has been discussed. Patient/Family are encouraged to report perceived risks to care and to ask questions if they do not understand what they are told or what they should do.
[2024-01-06 17:30] VITALS: O2SAT 96
[2024-01-06 17:31] VITALS: BMI 33.7
[2024-01-06 17:32] VITALS: BP 123/83; PULSE 96; RESP 18; TEMP 35.9; O2SAT 91
[2024-01-06] MEDS: CITALOPRAM HYDROBROMIDE 20 MG TABLET PO (21:52)
[2024-01-06] MEDS: traZODone HCL 50 MG TABLET PO (21:52)
[2024-01-06] MEDS: oxyCODONE/ACETAMINOPHEN (*CRX) 5-325 MG TABLET 1 TABLET PO (21:52)
[2024-01-06] MEDS: MEMANTINE 5 MG TABLET PO (21:52)
[2024-01-06] MEDS: ATORVASTATIN 40 MG TABLET 80 MG PO (21:52)
[2024-01-06] MEDS: PREGABALIN (*CRX) 100 MG CAPSULE PO (21:53)
[2024-01-06] MEDS: MIRTAZAPINE 15 MG TABLET PO (21:53)
[2024-01-06] MEDS: PRAMIPEXOLE 0.25 MG TABLET 0.5 MG PO (22:07)
[2024-01-06] MEDS: APIXABAN 2.5 MG TABLET 10 MG PO (22:07)
[2024-01-07] VITALS: BP 118/68; PULSE 88; RESP 19; TEMP 36.3; O2SAT 93
[2024-01-07] MEDS: AMOXICILLIN/CLAVULANATE K 500-125 MG TAB 1 TABLET PO ×3 (04:59→20:59)
[2024-01-07 05:30] VITALS: O2SAT 94
[2024-01-07 05:45] VITALS: O2SAT 96
[2024-01-07] MEDS: oxyCODONE/ACETAMINOPHEN (*CRX) 5-325 MG TABLET 1 TABLET PO ×3 (06:42→21:22)
[2024-01-07 08:00] VITALS: BP 124/66; PULSE 84; RESP 17; TEMP 36.6; O2SAT 94
--- NOTE | 2024-01-07 08:01 | PM.IMHP ---
H&P: HPI History of Present Illness Date/Time: 01/07/24 08:01 Chief Complaint: Aspiration pneumonia, Weakness Narrative: This is a 88 year old that is being admitted as a swing bed to our hospital after a prolonged hospitalization at [facility] . At this time patient will be evaluated by PT/OT/ST and we will plan on her ultimately transitioning to Assistive living until then we will continue to treat her discharge summary from previous hospital listed below. She remains on oxygen and has a BiPAP/CPAP to wear while sleeping. 88-year-old female with COPD, ROSALIA, chronic respiratory failure on 2 L nasal cannula continuously, paroxysmal atrial fibrillation no longer on anticoagulation due to falls, diastolic heart failure, hypertension, hyperlipidemia, obesity, depression and anxiety, tremors, iron deficiency anemia, history of DVT, neurocognitive disorder currently on Namenda presents to the hospital from [facility] with acute onset of shortness of breath. She was just discharged from [facility] on 12/10/2023 for pneumonia and sepsis having received vancomycin and cefepime along with acute on chronic respiratory failure with hypoxia and hypercapnia. She appeared better and was discharged on p.o. Augmentin and steroid. Patient is pleasant sitting up in chair with son at bedside. She states she is feeling okay today and looking forward to working with therapy. She continues to have a weak, nonproductive cough. She has been intermittently tachycardic today. Started on amlodipine and blood pressures appear to be stable. She denies chest pain, nausea/vomiting and abdominal pain. If vitals remain stable possible that patient can DC tomorrow. Patient wishes to become a DNR at this time. Son aware and agrees. 01/05- assuming care. Home midodrine 10 mg BID discontinued- she was Started amlodipine 5 mg daily and her home lasix 20 mg daily has been resumed. 2l per nc -working with PT/OT-s till gets winded but overall improvin Review of Systems Review of Systems: Weakness, Aspiraton, Pneumonia All systems reviewed & are unremarkable except as noted in HPI and below PMFSH Past Medical History Medical History Chronic GERD Chronic obstructive pulmonary disease Chronic pain syndrome Chronic respiratory failure with hypoxia and hypercapnia Deep venous thrombosis Depression with anxiety Heart failure with preserved ejection fraction Hiatal hernia Obstructive sleep apnea Paroxysmal atrial fibrillation Surgical History Surgical History History of bladder repair surgery History of breast surgery History of cataract extraction History of cholecystectomy History of colonoscopy History of esophagogastroduodenoscopy History of foot surgery History of fusion of cervical spine History of hernia repair History of hysterectomy History of spinal surgery History of tonsillectomy Family History Family History Father Bladder cancer Mother Hypertension Depression Sibling Asthma Hypertension Depression Grandparent Hypertension Heart disease Cerebrovascular accident Grandparent Alcoholism Lung cancer Social History Social History Social History: Surrogate medical decision maker: Tyrone Bullard, son. Code status: Full code. Smoking packs per day: 1 Smoking cigarettes per day: 20.0 Years smoked: 20 Smoking pack-years: 20.00 Smoking status: Former smoker Tobacco type: cigarettes Second hand tobacco smoke exposure: No Alcohol intake: never Drinks per week: 1 Substance use: never Substance use type: does not use Other substance usage details: THC gummie PRN HS to help sleep Do You Feel Safe in your Home?: Yes Lack of Transportation: No Lack of Food: Never True Current Housing: I Have Housing Concerned About Future Housing: No Difficulty Paying Gas/Electric Bills: No Difficulty Paying for Meds: No Currently Unemployed: No Education: Associate Degree Difficulty w/ Childcare or Family Care: No Additional living arrangements comments: with 3 children. Lives at [facility]. 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 Spiritual care concerns: No Meds Home Medications and Allergies Home Medications Medication Instructions Recorded Confirmed Type atorvastatin 80 mg tablet 80 mg PO HS 03/04/22 01/06/24 History memantine 5 mg tablet 5 mg PO Q12H 03/04/22 01/06/24 History pramipexole 0.5 mg tablet (Mirapex) 0.5 mg PO HS 03/07/22 01/06/24 History ferrous sulfate 325 mg (65 mg 325 mg PO Q48H 10/01/22 01/06/24 History iron) tablet pregabalin 100 mg capsule 100 mg PO Q12H 10/01/22 01/06/24 History albuterol sulfate 2.5 mg/3 mL 2.5 mg inhalation Q8H PRN wheezing 10/13/22 01/06/24 History (0.083 %) solution for nebulization cholecalciferol (vitamin D3) 25 25 mcg PO DAILY 10/13/22 01/06/24 History mcg (1,000 unit) capsule (Vitamin D3) citalopram 20 mg tablet 20 mg PO QHS 02/20/23 01/06/24 History fluticasone fur. 100 mcg-umeclid 1 inh inhalation DAILY #28 ea 03/02/23 01/06/24 Rx 62.5 mcg-vilant 25 mcg inhalat.powder (Trelegy Ellipta) pantoprazole 40 mg tablet,delayed 40 mg PO QAM #30 tabs 03/02/23 01/06/24 Rx release guaifenesin 600 mg tablet, 600 mg PO Q12HR PRN Congestion 09/01/23 01/06/24 History extended release 12 hr (Mucus Relief ER) lidocaine 4 % topical patch 1 patch transdermal DAILY PRN Back 09/01/23 01/06/24 History (Lidocaine Pain Relief) Pain aripiprazole 2 mg tablet 2 mg PO DAILY 09/17/23 01/06/24 History bisacodyl 5 mg tablet,delayed 5 mg PO DAILY PRN constipation 09/17/23 01/06/24 History release furosemide 20 mg tablet 20 mg PO DAILY 09/17/23 01/06/24 History polyethylene glycol 3350 17 gram 17 g PO QAM PRN Constipation #30 ea 09/21/23 01/06/24 Rx oral powder packet (Miralax) docusate sodium 100 mg capsule 100 mg PO BID #60 caps 10/01/23 01/06/24 Rx mirtazapine 15 mg tablet (Remeron) 15 mg PO HS #30 tabs 10/01/23 01/06/24 Rx nitrofurantoin 100 mg PO DAILY #30 caps 10/01/23 01/06/24 Rx monohydrate/macrocrystals 100 mg capsule (Macrobid) vit C 250 mg-vit E 90 mg-zinc 40 1 tablet PO DAILY 12/05/23 01/06/24 History mg-copper 1 [id number] capsule (PreserVision AREDS-2) amlodipine 5 mg tablet (Norvasc) 5 mg PO DAILY #90 tabs 01/06/24 01/06/24 Rx amoxicillin 500 mg-potassium 1 tablet PO Q8HR #6 tabs 01/06/24 01/06/24 Rx clavulanate 125 mg tablet (Augmentin) apixaban 5 mg tablet (Eliquis) 5 mg PO Q12HR #90 tabs 01/06/24 01/06/24 Rx apixaban 5 mg tablet (Eliquis) 10 mg PO Q12HR #2 tabs 01/06/24 01/06/24 Rx oxycodone-acetaminophen 7.5 mg-325 1 tablet PO Q6H PRN Pain (Scale 01/06/24 01/06/24 Rx mg tablet Score 4-6) #10 tabs Allergies Allergy/AdvReac Type Severity Reaction Status Date / Time chlorpromazine Allergy Unknown Unknown Verified 12/29/23 19:06 [From Thorazine] diphenhydramine Allergy Unknown Unknown Verified 12/29/23 19:06 [From Benadryl] meperidine [From Demerol] Allergy Unknown Unknown Verified 12/29/23 19:06 rofecoxib [From Vioxx] Allergy Unknown Unknown Verified 12/29/23 19:06 zolpidem [From Ambien] Allergy Unknown Unknown Verified 12/29/23 19:06 Vital Signs Vital Signs - 24 hr 01/06/24 17:32 01/07/24 00:00 01/06/24 17:30 Temperature 96.7 F L 97.4 F L Pulse Rate 96 88 Respiratory Rate 18 19 Blood Pressure 123/83 118/68 Pulse Oximetry 91 93 96 Oxygen Delivery Nasal Cannula Nasal Cannula Oxygen Flow Rate 2 2 01/07/24 05:45 Temperature Pulse Rate Respiratory Rate Blood Pressure Pulse Oximetry 96 Oxygen Delivery Oxygen Flow Rate Exam Const: General: comfortable and no acute distress HENMT: Face/Nose/Sinus: Normal nares present Mouth: Yes moist mucous membranes Eyes: General: appearance normal, both eyes and all related structures Pupils: Equal, round and reactive pupils present Neck: Neck: supple Resp: Effort & Inspection: normal respiratory effort Auscultation: crackles and wheezes Cardio: Rate: regular rate GI: GI Palp: Yes Soft to palpation Skin: General skin exam: normal color Neuro: Speech: normal speech Extrem: General: normal to inspection Psych: Affect: normal affect Assessment and Plan Assessment and plan (1) Hypertension: Code(s): I10 - Essential (primary) hypertension Status: Acute Assessment and Plan: continue with home medication monitor vitals (2) Pulmonary embolism: Code(s): I26.99 - Other pulmonary embolism without acute cor pulmonale Status: Acute Assessment and Plan: Eliquis 10 mg will convert to the 5mg bid soon (3) Pneumonia: Code(s): J18.9 - Pneumonia, unspecified organism Status: Acute Assessment and Plan: resolving (4) Sepsis: Code(s): A41.9 - Sepsis, unspecified organism Status: Acute Assessment and Plan: reasolving (5) Weakness: Code(s): R53.1 - Weakness Status: Acute Assessment and Plan: PT/OT/ST evaluate and treat
[2024-01-07] MEDS: FLUTICASONE/UMECLIDIN/VILANTER 100-62.5-25 MCG ELLIPTA 1 PUFF INHALATION (09:56)
[2024-01-07] MEDS: OPTI-GEN TAB 1 TABLET PO (09:56)
[2024-01-07] MEDS: FUROSEMIDE 20 MG TABLET PO (09:56)
[2024-01-07] MEDS: APIXABAN 2.5 MG TABLET 10 MG PO (09:56)
[2024-01-07] MEDS: MEMANTINE 5 MG TABLET PO ×2 (09:57→21:22)
[2024-01-07] MEDS: CHOLECALCIFEROL 1,000 UNITS TABLET 1000 UNITS PO (09:57)
[2024-01-07] MEDS: amLODIPine BESYLATE 5 MG TABLET PO (09:57)
[2024-01-07] MEDS: DOCUSATE SODIUM 100 MG CAPSULE PO (09:57)
[2024-01-07] MEDS: FERROUS SULFATE 325 MG TABLET DR PO (09:57)
[2024-01-07] MEDS: PREGABALIN (*CRX) 100 MG CAPSULE PO ×2 (09:57→21:23)
[2024-01-07] MEDS: ARIPiprazole 2 MG TABLET PO (09:57)
[2024-01-07] MEDS: PANTOPRAZOLE 40 MG TABLET PO (09:57)
[2024-01-07] MEDS: oxyCODONE HCL (*CRX) 2.5 MG TAB IR PO ×2 (13:34→21:21)
[2024-01-07 16:00] VITALS: BP 92/59; PULSE 80; RESP 17; TEMP 36.8; O2SAT 91
[2024-01-07] MEDS: PRAMIPEXOLE 0.25 MG TABLET 0.5 MG PO (21:21)
[2024-01-07] MEDS: APIXABAN 2.5 MG TABLET 5 MG PO (21:21)
[2024-01-07] MEDS: ATORVASTATIN 40 MG TABLET 80 MG PO (21:22)
[2024-01-07] MEDS: CITALOPRAM HYDROBROMIDE 20 MG TABLET PO (21:22)
[2024-01-07] MEDS: traZODone HCL 50 MG TABLET PO (21:23)
[2024-01-07] MEDS: MIRTAZAPINE 15 MG TABLET PO (21:23)
[2024-01-08] VITALS: BP 101/63; PULSE 80; RESP 18; TEMP 36.4; O2SAT 90
[2024-01-08] MEDS: AMOXICILLIN/CLAVULANATE K 500-125 MG TAB 1 TABLET PO ×2 (04:59→12:51)
[2024-01-08 05:30] VITALS: O2SAT 94
[2024-01-08] MEDS: oxyCODONE/ACETAMINOPHEN (*CRX) 5-325 MG TABLET 1 TABLET PO ×3 (06:40→21:38)
[2024-01-08] MEDS: oxyCODONE HCL (*CRX) 2.5 MG TAB IR PO ×3 (06:42→21:40)
[2024-01-08 08:00] VITALS: BP 100/59; PULSE 77; RESP 14; TEMP 36; O2SAT 94
[2024-01-08] MEDS: amLODIPine BESYLATE 5 MG TABLET PO (09:50)
[2024-01-08] MEDS: PREGABALIN (*CRX) 100 MG CAPSULE PO ×2 (09:53→21:37)
[2024-01-08] MEDS: MEMANTINE 5 MG TABLET PO ×2 (09:53→21:37)
[2024-01-08] MEDS: APIXABAN 2.5 MG TABLET 5 MG PO ×2 (09:53→21:37)
[2024-01-08] MEDS: FUROSEMIDE 20 MG TABLET PO (09:53)
[2024-01-08] MEDS: ARIPiprazole 2 MG TABLET PO (09:54)
[2024-01-08] MEDS: PANTOPRAZOLE 40 MG TABLET PO (09:54)
[2024-01-08] MEDS: DOCUSATE SODIUM 100 MG CAPSULE PO ×2 (09:54→17:26)
[2024-01-08] MEDS: CHOLECALCIFEROL 1,000 UNITS TABLET 1000 UNITS PO (09:54)
[2024-01-08] MEDS: OPTI-GEN TAB 1 TABLET PO (09:56)
[2024-01-08] MEDS: FLUTICASONE/UMECLIDIN/VILANTER 100-62.5-25 MCG ELLIPTA 1 PUFF INHALATION (09:56)
[2024-01-08 12:48] LABS: Hemoglobin 11.3 g/dL (11.7-13.8); Mean Corpuscular HGB Conc 29.7 g/dL (32-36); Mean Corpuscular Volume 94.3 fL (78.0-102.0); Mean Platelet Volume 9.5 fl (9.2-11.8); Platelet Count Result 246 K/mm3 (150-420); Red Blood Count 4.03 M/mm3 (4.20-5.40); White Blood Count 11.9 K/mm3 (4.8-10.8)
[2024-01-08] MEDS: guaiFENesin 12 HR 600 MG TABCR PO (12:51)
[2024-01-08 13:09] LABS: Alanine Aminotransferase 52 U/L (14-59); Albumin Level 2.9 g/dL (3.4-5.0); Alkaline Phosphatase 97 U/L (46-116); Anion Gap 3 mmol/L (4-12); Aspartate Amino Transferase 24 U/L (15-37); Bilirubin,Total 0.5 mg/dL (0.00-1.00); Blood Urea Nitrogen 22 mg/dL (7-18); Calcium 8.6 mg/dL (8.5-10.1); Carbon Dioxide 39 mmol/L (21-32); Chloride 103 mmol/L (98-108); Estimated Glomerular Filt Rate 49; Glucose 64 mg/dL (70-99); Osmolality Calculated 301 mOsm/kg (285-295); Potassium 3.9 mmol/L (3.5-5.1); Sodium 145 mmol/L (136-145); Total Protein 6.4 g/dL (6.4-8.2)
[2024-01-08 16:00] VITALS: BP 110/60; PULSE 75; RESP 14; TEMP 36.4; O2SAT 94
[2024-01-08 16:11] LABS: Glucose Point of Care 145 mg/dl (65-105)
[2024-01-08 16:45] LABS: Appearance Urine Clear (Clear); Bilirubin Urine Negative (Negative); Blood Urine Trace-intact (Negative); Color Urine Light Yellow (Yellow); Glucose Urine UA Negative (Negative); Ketones Urine Negative (Negative); Leukocyte Esterase Ur Negative LEU/UL (Negative); Nitrate Urine Negative (Negative); Protein Urine Negative (Negative); Specific Grav Ur 1.015 (1.010-1.020); Urobilinogen Urine 0.2 mg/dL (0.2-1.0); pH Urine 5.5 (5.0-8.0)
[2024-01-08 17:06] LABS: RBC Urine 0-2 /hpf (0-2); Squamous Epithelial Cell Urine Few /hpf (Few); WBC Urine 0-3 /hpf (0-3)
[2024-01-08 17:07] LABS: Add Urine Microscopic? YES; Bacteria Urine 1+ /hpf; Hyaline Casts Urine 0-2 /lpf
[2024-01-08 20:00] VITALS: PULSE 75; RESP 14; O2SAT 94
[2024-01-08] MEDS: PRAMIPEXOLE 0.25 MG TABLET 0.5 MG PO (21:37)
[2024-01-08] MEDS: traZODone HCL 50 MG TABLET PO (21:37)
[2024-01-08] MEDS: ATORVASTATIN 40 MG TABLET 80 MG PO (21:37)
[2024-01-08] MEDS: MIRTAZAPINE 15 MG TABLET PO (21:37)
[2024-01-08] MEDS: CITALOPRAM HYDROBROMIDE 20 MG TABLET PO (21:38)
[2024-01-08] MEDS: polyethylene glycoL 3350 17 GM POWD.PACK PO (21:48)
[2024-01-09] VITALS: BP 101/61; PULSE 78; RESP 18; TEMP 36.6; O2SAT 92
[2024-01-09 05:30] VITALS: O2SAT 92
[2024-01-09 08:00] VITALS: BP 120/82; PULSE 81; RESP 16; TEMP 36.6; O2SAT 93
[2024-01-09] MEDS: FLUTICASONE/UMECLIDIN/VILANTER 100-62.5-25 MCG ELLIPTA 1 PUFF INHALATION (08:26)
[2024-01-09] MEDS: FUROSEMIDE 20 MG TABLET PO (08:26)
[2024-01-09] MEDS: CHOLECALCIFEROL 1,000 UNITS TABLET 1000 UNITS PO (08:27)
[2024-01-09] MEDS: oxyCODONE HCL (*CRX) 2.5 MG TAB IR PO ×2 (08:27→21:44)
[2024-01-09] MEDS: OPTI-GEN TAB 1 TABLET PO (08:27)
[2024-01-09] MEDS: DOCUSATE SODIUM 100 MG CAPSULE PO ×2 (08:29→17:06)
[2024-01-09] MEDS: ARIPiprazole 2 MG TABLET PO (08:29)
[2024-01-09] MEDS: amLODIPine BESYLATE 5 MG TABLET PO (08:29)
[2024-01-09] MEDS: APIXABAN 2.5 MG TABLET 5 MG PO ×2 (08:30→21:43)
[2024-01-09] MEDS: PANTOPRAZOLE 40 MG TABLET PO (08:30)
[2024-01-09] MEDS: NITROFURANTOIN MONOHYD MACROCR 100 MG CAP PO (08:30)
[2024-01-09] MEDS: MEMANTINE 5 MG TABLET PO ×2 (08:31→21:43)
[2024-01-09] MEDS: FERROUS SULFATE 325 MG TABLET DR PO (08:31)
[2024-01-09] MEDS: PREGABALIN (*CRX) 100 MG CAPSULE PO ×2 (08:31→21:43)
[2024-01-09 16:00] VITALS: BP 107/71; PULSE 76; RESP 16; TEMP 36.7; O2SAT 92
[2024-01-09 20:00] VITALS: PULSE 76; RESP 16; O2SAT 92
[2024-01-09] MEDS: polyethylene glycoL 3350 17 GM POWD.PACK PO (21:42)
[2024-01-09] MEDS: PRAMIPEXOLE 0.25 MG TABLET 0.5 MG PO (21:43)
[2024-01-09] MEDS: ATORVASTATIN 40 MG TABLET 80 MG PO (21:43)
[2024-01-09] MEDS: guaiFENesin 12 HR 600 MG TABCR PO (21:43)
[2024-01-09] MEDS: CITALOPRAM HYDROBROMIDE 20 MG TABLET PO (21:43)
[2024-01-09] MEDS: MIRTAZAPINE 15 MG TABLET PO (21:43)
[2024-01-09] MEDS: traZODone HCL 50 MG TABLET PO (21:43)
[2024-01-09] MEDS: oxyCODONE/ACETAMINOPHEN (*CRX) 5-325 MG TABLET 1 TABLET PO (21:44)
[2024-01-09 23:57] VITALS: BP 97/58; PULSE 81; RESP 17; TEMP 37; O2SAT 94
[2024-01-10 05:30] VITALS: O2SAT 95
[2024-01-10 08:00] VITALS: BP 103/68; PULSE 79; RESP 16; TEMP 36.6; O2SAT 95
[2024-01-10] MEDS: polyethylene glycoL 3350 17 GM POWD.PACK PO (08:10)
[2024-01-10] MEDS: FLUTICASONE/UMECLIDIN/VILANTER 100-62.5-25 MCG ELLIPTA 1 PUFF INHALATION (08:12)
[2024-01-10] MEDS: APIXABAN 2.5 MG TABLET 5 MG PO ×2 (08:14→21:37)
[2024-01-10] MEDS: FUROSEMIDE 20 MG TABLET PO (08:14)
[2024-01-10] MEDS: ARIPiprazole 2 MG TABLET PO (08:15)
[2024-01-10] MEDS: oxyCODONE/ACETAMINOPHEN (*CRX) 5-325 MG TABLET 1 TABLET PO ×2 (08:15→17:04)
[2024-01-10] MEDS: amLODIPine BESYLATE 5 MG TABLET PO (08:16)
[2024-01-10] MEDS: DOCUSATE SODIUM 100 MG CAPSULE PO ×2 (08:16→17:05)
[2024-01-10] MEDS: PANTOPRAZOLE 40 MG TABLET PO (08:16)
[2024-01-10] MEDS: OPTI-GEN TAB 1 TABLET PO (08:16)
[2024-01-10] MEDS: PREGABALIN (*CRX) 100 MG CAPSULE PO ×2 (08:17→21:37)
[2024-01-10] MEDS: NITROFURANTOIN MONOHYD MACROCR 100 MG CAP PO (08:17)
[2024-01-10] MEDS: CHOLECALCIFEROL 1,000 UNITS TABLET 1000 UNITS PO (08:17)
[2024-01-10] MEDS: MEMANTINE 5 MG TABLET PO ×2 (08:17→21:37)
[2024-01-10 16:00] VITALS: BP 103/98; PULSE 79; RESP 16; TEMP 36.6; O2SAT 95
[2024-01-10 20:00] VITALS: PULSE 79; RESP 16; O2SAT 95
[2024-01-10] MEDS: PRAMIPEXOLE 0.25 MG TABLET 0.5 MG PO (21:37)
[2024-01-10] MEDS: ATORVASTATIN 40 MG TABLET 80 MG PO (21:37)
[2024-01-10] MEDS: traZODone HCL 50 MG TABLET PO (21:37)
[2024-01-10] MEDS: guaiFENesin 12 HR 600 MG TABCR PO (21:37)
[2024-01-10] MEDS: oxyCODONE HCL (*CRX) 2.5 MG TAB IR PO (21:37)
[2024-01-10] MEDS: CITALOPRAM HYDROBROMIDE 20 MG TABLET PO (21:37)
[2024-01-10] MEDS: MIRTAZAPINE 15 MG TABLET PO (21:37)
[2024-01-11] VITALS: BP 97/61; PULSE 78; RESP 17; TEMP 36.7; O2SAT 93
--- NOTE | 2024-01-11 04:15 | PC.NURSE ---
Patient removed C-PAP per self.
[2024-01-11 05:30] VITALS: O2SAT 94
[2024-01-11 08:00] VITALS: BP 100/55; PULSE 72; PULSE 74; RESP 14; TEMP 36.8; O2SAT 94; O2SAT 96
[2024-01-11] MEDS: FLUTICASONE/UMECLIDIN/VILANTER 100-62.5-25 MCG ELLIPTA 1 PUFF INHALATION (09:01)
[2024-01-11] MEDS: FUROSEMIDE 20 MG TABLET PO (09:02)
[2024-01-11] MEDS: oxyCODONE HCL (*CRX) 2.5 MG TAB IR PO (09:02)
[2024-01-11] MEDS: CHOLECALCIFEROL 1,000 UNITS TABLET 1000 UNITS PO (09:02)
[2024-01-11] MEDS: APIXABAN 2.5 MG TABLET 5 MG PO ×2 (09:02→21:44)
[2024-01-11] MEDS: amLODIPine BESYLATE 5 MG TABLET PO (09:02)
[2024-01-11] MEDS: OPTI-GEN TAB 1 TABLET PO (09:02)
[2024-01-11] MEDS: oxyCODONE/ACETAMINOPHEN (*CRX) 5-325 MG TABLET 1 TABLET PO (09:04)
[2024-01-11] MEDS: ARIPiprazole 2 MG TABLET PO (09:04)
[2024-01-11] MEDS: FERROUS SULFATE 325 MG TABLET DR PO (09:05)
[2024-01-11] MEDS: DOCUSATE SODIUM 100 MG CAPSULE PO (09:05)
[2024-01-11] MEDS: PREGABALIN (*CRX) 100 MG CAPSULE PO ×2 (09:06→21:44)
[2024-01-11] MEDS: MEMANTINE 5 MG TABLET PO ×2 (09:06→21:44)
[2024-01-11] MEDS: PANTOPRAZOLE 40 MG TABLET PO (09:15)
[2024-01-11] MEDS: NITROFURANTOIN MONOHYD MACROCR 100 MG CAP PO (09:18)
[2024-01-11 10:05] VITALS: TEMP 36
[2024-01-11 16:40] VITALS: BP 124/78; PULSE 89; RESP 16; TEMP 36.4; O2SAT 97
[2024-01-11 20:00] VITALS: PULSE 89; RESP 16; O2SAT 97
[2024-01-11] MEDS: ATORVASTATIN 40 MG TABLET 80 MG PO (21:44)
[2024-01-11] MEDS: traZODone HCL 50 MG TABLET PO (21:44)
[2024-01-11] MEDS: CITALOPRAM HYDROBROMIDE 20 MG TABLET PO (21:44)
[2024-01-11] MEDS: guaiFENesin 12 HR 600 MG TABCR PO (21:44)
[2024-01-11] MEDS: MIRTAZAPINE 15 MG TABLET PO (21:44)
[2024-01-11] MEDS: PRAMIPEXOLE 0.25 MG TABLET 0.5 MG PO (21:44)
[2024-01-11] MEDS: [UNRECOGNIZED DRUG - OTHER] 7.5 MG PO (21:45)
[2024-01-12] VITALS: BP 98/59; PULSE 84; RESP 15; TEMP 36.8; O2SAT 94
[2024-01-12 05:30] VITALS: O2SAT 94
[2024-01-12 08:00] VITALS: BP 104/60; PULSE 80; RESP 18; TEMP 36.6; O2SAT 98
[2024-01-12] MEDS: PANTOPRAZOLE 40 MG TABLET PO (09:52)
[2024-01-12] MEDS: MEMANTINE 5 MG TABLET PO ×2 (09:52→20:38)
[2024-01-12] MEDS: FUROSEMIDE 20 MG TABLET PO (09:52)
[2024-01-12] MEDS: OPTI-GEN TAB 1 TABLET PO (09:52)
[2024-01-12] MEDS: ARIPiprazole 2 MG TABLET PO (09:52)
[2024-01-12] MEDS: CHOLECALCIFEROL 1,000 UNITS TABLET 1000 UNITS PO (09:52)
[2024-01-12] MEDS: PREGABALIN (*CRX) 100 MG CAPSULE PO ×2 (09:52→20:38)
[2024-01-12] MEDS: APIXABAN 2.5 MG TABLET 5 MG PO ×2 (09:52→20:37)
[2024-01-12] MEDS: amLODIPine BESYLATE 5 MG TABLET PO (09:52)
[2024-01-12] MEDS: FLUTICASONE/UMECLIDIN/VILANTER 100-62.5-25 MCG ELLIPTA 1 PUFF INHALATION (09:53)
[2024-01-12] MEDS: NITROFURANTOIN MONOHYD MACROCR 100 MG CAP PO (09:53)
[2024-01-12 16:00] VITALS: BP 114/71; PULSE 83; RESP 17; TEMP 36.6; O2SAT 96
[2024-01-12] MEDS: PRAMIPEXOLE 0.25 MG TABLET 0.5 MG PO (20:36)
[2024-01-12] MEDS: polyethylene glycoL 3350 17 GM POWD.PACK PO (20:36)
[2024-01-12] MEDS: traZODone HCL 50 MG TABLET PO (20:37)
[2024-01-12] MEDS: MIRTAZAPINE 15 MG TABLET PO (20:37)
[2024-01-12] MEDS: CITALOPRAM HYDROBROMIDE 20 MG TABLET PO (20:37)
[2024-01-12] MEDS: ATORVASTATIN 40 MG TABLET 80 MG PO (20:38)
[2024-01-12] MEDS: [UNRECOGNIZED DRUG - OTHER] 7.5 MG PO (20:38)
[2024-01-13] VITALS: BP 104/79; PULSE 86; RESP 17; TEMP 36.8; O2SAT 92
[2024-01-13 05:30] VITALS: O2SAT 94
[2024-01-13 08:00] VITALS: BP 106/67; PULSE 84; RESP 17; TEMP 36.6; O2SAT 94
[2024-01-13] MEDS: FLUTICASONE/UMECLIDIN/VILANTER 100-62.5-25 MCG ELLIPTA 1 PUFF INHALATION (08:27)
[2024-01-13] MEDS: guaiFENesin 12 HR 600 MG TABCR PO (08:28)
[2024-01-13] MEDS: PANTOPRAZOLE 40 MG TABLET PO (08:28)
[2024-01-13] MEDS: amLODIPine BESYLATE 5 MG TABLET PO (08:28)
[2024-01-13] MEDS: FERROUS SULFATE 325 MG TABLET DR PO (08:28)
[2024-01-13] MEDS: CHOLECALCIFEROL 1,000 UNITS TABLET 1000 UNITS PO (08:28)
[2024-01-13] MEDS: FUROSEMIDE 20 MG TABLET PO (08:28)
[2024-01-13] MEDS: NITROFURANTOIN MONOHYD MACROCR 100 MG CAP PO (08:28)
[2024-01-13] MEDS: OPTI-GEN TAB 1 TABLET PO (08:28)
[2024-01-13] MEDS: ARIPiprazole 2 MG TABLET PO (08:28)
[2024-01-13] MEDS: DOCUSATE SODIUM 100 MG CAPSULE PO (08:28)
[2024-01-13] MEDS: APIXABAN 2.5 MG TABLET 5 MG PO ×2 (08:28→21:02)
[2024-01-13] MEDS: MEMANTINE 5 MG TABLET PO ×2 (08:28→21:02)
[2024-01-13] MEDS: PREGABALIN (*CRX) 100 MG CAPSULE PO ×2 (08:28→21:02)
[2024-01-13] MEDS: oxyCODONE HCL (*CRX) 5 MG TAB IR PO ×2 (08:29→21:03)
[2024-01-13 16:00] VITALS: BP 115/68; PULSE 84; RESP 17; TEMP 36.7; O2SAT 94
[2024-01-13 20:00] VITALS: BP 97/54; PULSE 109; RESP 18; TEMP 37; O2SAT 92
[2024-01-13] MEDS: ATORVASTATIN 40 MG TABLET 80 MG PO (21:02)
[2024-01-13] MEDS: PRAMIPEXOLE 0.25 MG TABLET 0.5 MG PO (21:02)
[2024-01-13] MEDS: CITALOPRAM HYDROBROMIDE 20 MG TABLET PO (21:02)
[2024-01-13] MEDS: MIRTAZAPINE 15 MG TABLET PO (21:03)
--- NOTE | 2024-01-13 21:14 | PC.NURSE ---
pt requested pudding with medications, tolerated well, no difficulty with swallowing noted.
--- NOTE | 2024-01-13 21:16 | PC.NURSE ---
cpap applied per pt request. tolerates well
--- NOTE | 2024-01-13 22:50 | PC.NURSE ---
assumed care. report received from mee stroud
--- NOTE | 2024-01-13 22:58 | PC.NURSE ---
report to leslie rodriguez rn. all questions answered.
[2024-01-14] VITALS (7 sets, daily range): BP systolic 91–125; BP diastolic 57–92; PULSE 66–88; RESP 16–20; TEMP 36.1–36.6; O2SAT 90–98
[2024-01-14] MEDS: oxyCODONE HCL (*CRX) 5 MG TAB IR PO ×3 (03:01→21:36)
--- NOTE | 2024-01-14 08:16 | P.PNIM_ITS ---
Progress Note: A&P Assessment and Plan (1) Weakness: Code(s): R53.1 - Weakness Status: Acute Assessment and Plan: * Continue PT and OT * plan for care conference today and discharge planning (2) Acute on chronic respiratory failure with hypoxia and hypercapnia: Code(s): J96.21 - Acute and chronic respiratory failure with hypoxia; J96.22 - Acute and chronic respiratory failure with hypercapnia Status: Acute Assessment and Plan: * chest x-ray done today showing stable bibasilar airspace disease left worse than right, minimal left pleural effusion. Chest x-ray looks improved in comparison to her 01/03/2024 chest x-ray * likely an exacerbation of her COPD * continue to wean O2 to keep sat greater than 90% * start prednisone 40 mg daily * start DuoNeb treatment q.6 hours * will start azithromycin for 5 day course * continue incentive spirometry * white blood cell count is normal, no concern for pneumonia at this time (3) Hypertension: Code(s): I10 - Essential (primary) hypertension Status: Acute Assessment and Plan: * blood pressure ranging 97/54 to 106/67 * currently on amlodipine (4) Pulmonary embolism: Code(s): I26.99 - Other pulmonary embolism without acute cor pulmonale Status: Acute Assessment and Plan: * continue Eliquis * currently on CPAP Time Spent With Patient Time with patient: 25 - 35 minutes Subjective Date/time seen: 01/14/24 08:16 Interval history: Interval history: This is an 88 year old female who presented to [facility] for swing bed program. She was recently discharged from [facility] after hospitalization for sepsis, acute on chronic hypoxic respiratory failure caused by pneumonia. She was discharged on antibiotics and sent to us for continued rehab needs. Subjective: Patient reporting increased shortness a breath today. She has been progressing with therapy. Currently on Cpap 50%. Labs, imaging and chart reviewed. Review of Systems Review of Systems: All systems reviewed & are unremarkable except as noted in HPI and below Constitutional: Constitutional: Reports as per HPI and Reports no additional constitutional complaints Eyes: Eyes: Reports as per HPI and Reports no additional eye complaints ENT: Reports system reviewed and no additional complaints, except as documented and Reports as per HPI Cardiovascular: Cardiovascular: Reports as per HPI and Reports no additional cardiovascular complaints Respiratory: Respiratory: Reports as per HPI and Reports no additional respiratory complaints Gastrointestinal: Gastrointestinal: Reports as per HPI and Reports no additional gastrointestinal complaints Genitourinary: Genitourinary: Reports no additional female genitourinary complaints and Reports as per HPI Musculoskeletal: Musculoskeletal: Reports no additional musculoskeletal complaints and Reports as per HPI Integumentary/Breasts: Skin/Breast: Reports system reviewed and no additional complaints, except as docu and Reports as per HPI Neurologic: Reports system reviewed and no additional complaints, except as documented and Reports as per HPI Psychiatric: Psychiatric: Reports no additional psychiatric complaints and Reports as per HPI Exam Narrative: General: In no acute distress Head: atraumatic, no encephalopathy Eyes: EOMI, PERRLA, sclera clear ENT: moist mucous membranes, nasal passages clear Neck: supple, no JVD, no adenopathy, trachea midline Cardiac: Normal S1 and S2. Murmur noted, gallops or friction rubs, peripheral pulses intact. Respiratory: Lungs clear to auscultation bilateral upper lobes, diminished with crackles in bilateral lower lobes, no adventitious lung sounds, currently on CPAP 50% Gastrointestinal: soft, non-distended, non-tender, normoactive bowel sounds. : voiding without difficulty. Extremities: moves all extremities well, no edema Skin: clean, dry, intact. No wounds or lesions. Neuro: Alert and oriented x4, cranial nerves intact, no neuro deficits. Psych: normal mood, normal affect, interactive Objective Data Vital Signs Vital Signs: Vital Signs - 24 hr 01/13/24 16:00 01/13/24 20:00 01/14/24 00:20 Temperature 98.1 F 98.6 F 97.0 F L Pulse Rate 84 109 H 75 Respiratory Rate 17 18 16 Blood Pressure 115/68 97/54 L 91/57 L Pulse Oximetry 94 92 90 Oxygen Delivery Nasal Cannula Nasal Cannula CPAP Oxygen Flow Rate 2 2 2 Intake/Output Intake/Output: Intake & Output 01/11/24 01/12/24 01/13/24 01/14/24 23:59 23:59 23:59 23:59 Intake Total 1380 1750 1260 200 Balance 1380 1750 1260 200 Meds/Results Medications: Active Medications Generic Name Dose Route Start Last Admin Trade Name Freq PRN Reason Stop Dose Admin Albuterol 2.5 mg 01/06/24 20:46 Albuterol Sulfate Neb 2.5 Mg/3 Ml Inh INHALATION Q8H PRN wheezing Amlodipine Besylate 5 mg 01/07/24 09:00 01/13/24 08:28 Amlodipine Besylate 5 Mg Tablet PO 5 mg DAILY MASTER Administration Apixaban 5 mg 01/07/24 21:00 01/13/24 21:02 Apixaban 2.5 Mg Tablet PO 5 mg Q12HR MASTER Administration Aripiprazole 2 mg 01/07/24 09:00 01/13/24 08:28 Aripiprazole 2 Mg Tablet PO 2 mg DAILY MASTER Administration Atorvastatin Calcium 80 mg 01/06/24 21:00 01/13/24 21:02 Atorvastatin 40 Mg Tablet PO 80 mg HS MASTER Administration Bisacodyl 5 mg 01/06/24 20:46 Bisacodyl 5 Mg Tablet Ec PO DAILY PRN constipation Citalopram Hydrobromide 20 mg 01/06/24 21:00 01/13/24 21:02 Citalopram Hydrobromide 20 Mg Tablet PO 20 mg QHS MASTER Administration Docusate Sodium 100 mg 01/07/24 09:00 01/13/24 17:03 Docusate Sodium 100 Mg Capsule PO Not Given BID [facility] Ferrous Sulfate 325 mg 01/07/24 09:00 01/13/24 08:28 Ferrous Sulfate [address] PO 325 mg Q48H MASTER Administration Fluticasone/Umeclidinium/Vilanterol 1 puff 01/07/24 09:00 01/13/24 08:27 Fluticasone/Umeclidin/Vilanter 100-62.5-25 Mcg Ellipta INHALATION 1 puff DAILY MASTER Administration Furosemide 20 mg 01/07/24 09:00 01/13/24 08:28 Furosemide 20 Mg Tablet PO 20 mg DAILY MASTER Administration Guaifenesin 600 mg 01/06/24 20:46 01/13/24 08:28 Guaifenesin 12 Hr 600 Mg Tabcr PO 600 mg Q12HR PRN Administration Congestion Lidocaine 1 patch 01/06/24 20:46 Lidocaine 5% Patch TRANSDERM DAILY PRN Back Pain Memantine 5 mg 01/06/24 21:00 01/13/24 21:02 Memantine 5 Mg Tablet PO 5 mg Q12H MASTER Administration Mirtazapine 15 mg 01/06/24 21:00 01/13/24 21:03 Mirtazapine 15 Mg Tablet PO 15 mg HS MASTER Administration Multivitamins/Minerals 1 tablet 01/07/24 09:00 01/13/24 08:28 Opti-Gen Tab PO 1 tablet DAILY MASTER Administration Nitrofurantoin Macrocrystals 100 mg 01/09/24 09:00 01/13/24 08:28 Nitrofurantoin Monohyd Macrocr 100 Mg Cap PO 100 mg DAILY MASTER Administration Oxycodone HCl 5 mg 01/13/24 08:07 01/14/24 03:01 Oxycodone Hcl (*Crx) 5 Mg Tab Ir PO 5 mg Q6H PRN Administration Pain Rated 4-6 Pantoprazole Sodium 40 mg 01/07/24 09:00 01/13/24 08:28 Pantoprazole 40 Mg Tablet PO 40 mg QAM MASTER Administration Polyethylene Glycol 17 gm 01/06/24 20:46 01/12/24 20:36 Polyethylene Glycol 3350 17 Gm Powd.Pack PO 17 gm QAM PRN Administration Constipation Pramipexole Dihydrochloride 0.5 mg 01/06/24 21:05 01/13/24 21:02 Pramipexole 0.25 Mg Tablet PO 0.5 mg HS MASTER Administration Pregabalin 100 mg 01/06/24 21:00 01/13/24 21:02 Pregabalin (*Crx) 100 Mg Capsule PO 100 mg Q12H MASTER Administration Trazodone HCl 50 mg 01/06/24 20:47 01/12/24 20:37 Trazodone Hcl 50 Mg Tablet PO 50 mg HS PRN Administration Insomnia Vitamin D 1,000 units 01/07/24 09:00 01/13/24 08:28 Cholecalciferol 1,000 Units Tablet PO 1,000 units DAILY MASTER Administration Quality VTE Prophylaxis VTE prophylaxis: pharmacologic ordered
[2024-01-14 08:47] LABS: Basophils Absolute Auto 0.03 K/mm3 (0.00-0.10); Basophils Percent Auto 0.4 % (0.0-1.0); Eosinophils Absolute Auto 0.08 K/mm3 (0.02-0.50); Hematocrit 35.2 % (35.0-42.0); Hemoglobin 10.5 g/dL (11.7-13.8); Immature Granulocyte Absolute 0.14 K/mm3 (0.00-0.00); Immature Granulocyte Percent A 1.8 % (0.0-0.0); Lymphocytes Absolute Auto 1.69 K/mm3 (1.10-4.50); Lymphocytes Percent Auto 21.2 % (18.0-42.0); Mean Corpuscular HGB Conc 29.8 g/dL (32-36); Mean Corpuscular Hemoglobin 28.3 pg (27.0-31.0); Mean Corpuscular Volume 94.9 fL (78.0-102.0); Mean Platelet Volume 9.3 fl (9.2-11.8); Monocytes Absolute Auto 0.63 K/mm3 (0.10-0.90); Monocytes Percent Auto 7.9 % (2.0-11.0); Neutrophils Absolute Auto 5.39 K/mm3 (1.70-7.20); Neutrophils Percent Auto 67.7 % (50.0-70.0); Platelet Count Result 205 K/mm3 (150-420); Red Blood Count 3.71 M/mm3 (4.20-5.40); Red Cell Distribution Width 16.2 % (11.6-14.4)
[2024-01-14 09:02] LABS: Alanine Aminotransferase 33 U/L (14-59); Albumin Level 2.8 g/dL (3.4-5.0); Alkaline Phosphatase 113 U/L (46-116); Anion Gap -1 mmol/L (4-12); Aspartate Amino Transferase 23 U/L (15-37); Bilirubin,Total 0.5 mg/dL (0.00-1.00); Blood Urea Nitrogen 16 mg/dL (7-18); Calcium 8.4 mg/dL (8.5-10.1); Carbon Dioxide 45 mmol/L (21-32); Chloride 102 mmol/L (98-108); Estimated Glomerular Filt Rate 52; Glucose 137 mg/dL (70-99); Osmolality Calculated 305 mOsm/kg (285-295); Potassium 3.7 mmol/L (3.5-5.1); Sodium 146 mmol/L (136-145); Total Protein 6.3 g/dL (6.4-8.2)
[2024-01-14] MEDS: FLUTICASONE/UMECLIDIN/VILANTER 100-62.5-25 MCG ELLIPTA 1 PUFF INHALATION (09:35)
[2024-01-14] MEDS: OPTI-GEN TAB 1 TABLET PO (09:36)
[2024-01-14] MEDS: CHOLECALCIFEROL 1,000 UNITS TABLET 1000 UNITS PO (09:36)
[2024-01-14] MEDS: FUROSEMIDE 20 MG TABLET PO (09:37)
[2024-01-14] MEDS: DOCUSATE SODIUM 100 MG CAPSULE PO (09:37)
[2024-01-14] MEDS: PREGABALIN (*CRX) 100 MG CAPSULE PO ×2 (09:37→21:36)
[2024-01-14] MEDS: amLODIPine BESYLATE 5 MG TABLET PO (09:37)
[2024-01-14] MEDS: ARIPiprazole 2 MG TABLET PO (09:37)
[2024-01-14] MEDS: APIXABAN 2.5 MG TABLET 5 MG PO ×2 (09:37→21:35)
[2024-01-14] MEDS: PANTOPRAZOLE 40 MG TABLET PO (09:37)
[2024-01-14] MEDS: MEMANTINE 5 MG TABLET PO ×2 (09:37→21:35)
[2024-01-14] MEDS: NITROFURANTOIN MONOHYD MACROCR 100 MG CAP PO (09:37)
[2024-01-14 10:53] LABS: Base Excess ABG 9.6 mmol/L (0-2); HCO3 ABG 36.7 mmol/L (23-29); Oxygen Content ABG 11.7 %vol (16.0-22.0); Oxygen Saturation ABG 80.2 % (95-97); Oxyhemoglobin 79.8 % (94-100); PCO2 ABG 64.3 mmHg (35-45); PO2 ABG 44.6 mmHg (75-85); pH ABG 7.37 (7.35-7.45)
[2024-01-14 10:54] LABS: Device BIPAP; Modified Allen's Test Pass; Site Drawn RIGHT RADIAL
[2024-01-14 10:55] LABS: Expiratory Pressure 10 cmH2O; Inspiratory Pressure 5 cmH2O
[2024-01-14] MEDS: IPRATROPIUM 0.5 MG/ALBUTEROL SULFATE 2.5 MG AMPUL.NEB 3 ML INHALATION ×2 (11:01→18:10)
[2024-01-14] MEDS: AZITHROMYCIN 250 MG TABLET 500 MG PO (12:10)
[2024-01-14] MEDS: predniSONE 20 MG TABLET 40 MG PO (12:11)
[2024-01-14] MEDS: traZODone HCL 50 MG TABLET PO (21:35)
[2024-01-14] MEDS: MIRTAZAPINE 15 MG TABLET PO (21:35)
[2024-01-14] MEDS: guaiFENesin 12 HR 600 MG TABCR PO (21:35)
[2024-01-14] MEDS: CITALOPRAM HYDROBROMIDE 20 MG TABLET PO (21:35)
[2024-01-14] MEDS: PRAMIPEXOLE 0.25 MG TABLET 0.5 MG PO (21:36)
[2024-01-14] MEDS: ATORVASTATIN 40 MG TABLET 80 MG PO (21:36)
[2024-01-15] VITALS (8 sets, daily range): BP systolic 97–119; BP diastolic 53–76; PULSE 58–87; RESP 16–18; TEMP 36.4–36.8; O2SAT 3–97
[2024-01-15] MEDS: IPRATROPIUM 0.5 MG/ALBUTEROL SULFATE 2.5 MG AMPUL.NEB 3 ML INHALATION ×2 (00:05→05:26)
--- NOTE | 2024-01-15 04:14 | PC.NURSE ---
Patient request to remove C-PAP for a short while d/t her nose hurting from the mask. C-PAP removed from [id number] to give patient a break, then reapplied.
[2024-01-15] MEDS: predniSONE 20 MG TABLET 40 MG PO (09:41)
[2024-01-15] MEDS: PREGABALIN (*CRX) 100 MG CAPSULE PO ×2 (09:41→21:47)
[2024-01-15] MEDS: ARIPiprazole 2 MG TABLET PO (09:41)
[2024-01-15] MEDS: OPTI-GEN TAB 1 TABLET PO (09:41)
[2024-01-15] MEDS: FLUTICASONE/UMECLIDIN/VILANTER 100-62.5-25 MCG ELLIPTA 1 PUFF INHALATION (09:41)
[2024-01-15] MEDS: APIXABAN 2.5 MG TABLET 5 MG PO ×2 (09:42→21:47)
[2024-01-15] MEDS: NITROFURANTOIN MONOHYD MACROCR 100 MG CAP PO (09:42)
[2024-01-15] MEDS: CHOLECALCIFEROL 1,000 UNITS TABLET 1000 UNITS PO (09:42)
[2024-01-15] MEDS: AZITHROMYCIN 250 MG TABLET 500 MG PO (09:42)
[2024-01-15] MEDS: FUROSEMIDE 20 MG TABLET PO (09:42)
[2024-01-15] MEDS: MEMANTINE 5 MG TABLET PO ×2 (09:42→21:47)
[2024-01-15] MEDS: FERROUS SULFATE 325 MG TABLET DR PO (09:42)
[2024-01-15] MEDS: PANTOPRAZOLE 40 MG TABLET PO (09:42)
[2024-01-15] MEDS: amLODIPine BESYLATE 5 MG TABLET PO (09:42)
--- NOTE | 2024-01-15 10:07 | PM.IMPN ---
Progress Note: A&P Assessment and Plan (1) Weakness: Code(s): R53.1 - Weakness Status: Acute Assessment and Plan: Continue PT and OT plan for care conference next Thursday (2) Acute on chronic respiratory failure with hypoxia and hypercapnia: Code(s): J96.21 - Acute and chronic respiratory failure with hypoxia; J96.22 - Acute and chronic respiratory failure with hypercapnia Status: Acute Assessment and Plan: chest x-ray done today showing stable bibasilar airspace disease left worse than right, minimal left pleural effusion. Chest x-ray looks improved in comparison to her 01/03/2024 chest x-ray likely an exacerbation of her COPD continue to wean O2 to keep sat greater than 90% start prednisone 40 mg daily start DuoNeb treatment q.6 hours p.r.n. continue azithromycin continue incentive spirometry call placed to Dr. Gurrola regarding CPAP versus BiPAP for at-home use considering she had hypoxia and hypercapnia history. Patient currently wears a CPAP at home. We will await further instruction from the assessment coordinator's whether she needs to transition to BiPAP at this time. (3) Hypertension: Code(s): I10 - Essential (primary) hypertension Status: Acute Assessment and Plan: Continue amlodipine (4) Pulmonary embolism: Code(s): I26.99 - Other pulmonary embolism without acute cor pulmonale Status: Acute Assessment and Plan: continue Eliquis Time Spent With Patient Time with patient: 15 - 25 minutes Subjective Date/time seen: 01/15/24 10:07 Interval history: Interval history: This is an 88 year old female who presented to [facility] for swing bed program. She was recently discharged from [facility] after hospitalization for sepsis, acute on chronic hypoxic respiratory failure caused by pneumonia. She was discharged on antibiotics and sent to us for continued rehab needs. Subjective: Patient reports feeling much better today. She states that her breathing is improved since adding the DuoNebs, prednisone, azithromycin yesterday. She denies any new complaints today. Review of Systems Review of Systems: Weakness, Aspiraton, Pneumonia All systems reviewed & are unremarkable except as noted in HPI and below Constitutional: Constitutional: Reports as per HPI and Reports no additional constitutional complaints Eyes: Eyes: Reports as per HPI and Reports no additional eye complaints ENT: Reports system reviewed and no additional complaints, except as documented and Reports as per HPI Cardiovascular: Cardiovascular: Reports as per HPI and Reports no additional cardiovascular complaints Respiratory: Respiratory: Reports as per HPI and Reports no additional respiratory complaints Gastrointestinal: Gastrointestinal: Reports as per HPI and Reports no additional gastrointestinal complaints Genitourinary: Genitourinary: Reports no additional female genitourinary complaints and Reports as per HPI Musculoskeletal: Musculoskeletal: Reports no additional musculoskeletal complaints and Reports as per HPI Integumentary/Breasts: Skin/Breast: Reports system reviewed and no additional complaints, except as docu and Reports as per HPI Neurologic: Reports system reviewed and no additional complaints, except as documented and Reports as per HPI Psychiatric: Psychiatric: Reports no additional psychiatric complaints and Reports as per HPI Exam Narrative: General: In no acute distress Cardiac: Normal S1 and S2. Murmur noted, gallops or friction rubs, peripheral pulses intact. Respiratory: Lungs clear to auscultation , currently on 2 L nasal cannula Gastrointestinal: soft, non-distended, non-tender, normoactive bowel sounds. : voiding without difficulty. Extremities: moves all extremities well, no edema Neuro: Alert and oriented x3 Objective Data Vital Signs Vital Signs: Vital Signs - 24 hr 01/14/24 10:55 01/14/24 11:06 01/14/24 16:00 Temperature 97.8 F Pulse Rate 66 68 88 Respiratory Rate 16 16 20 Blood Pressure 94/62 L Pulse Oximetry 94 98 90 Oxygen Delivery Nasal Cannula Oxygen Flow Rate 2 3 01/14/24 20:00 01/15/24 00:00 01/15/24 00:00 Temperature 97.5 F L Pulse Rate 88 87 87 Respiratory Rate 20 18 18 Blood Pressure 98/53 L Pulse Oximetry 90 3 L 90 Oxygen Delivery Nasal Cannula CPAP Oxygen Flow Rate 3 3 3 01/15/24 00:17 01/15/24 05:25 01/15/24 05:38 Temperature Pulse Rate 58 L 69 72 Respiratory Rate 18 18 18 Blood Pressure Pulse Oximetry 95 82 L 96 Oxygen Delivery Oxygen Flow Rate 3 3 3 01/15/24 08:00 Temperature 97.6 F Pulse Rate 75 Respiratory Rate 17 Blood Pressure 115/67 Pulse Oximetry 90 Oxygen Delivery Nasal Cannula Oxygen Flow Rate 3 Intake/Output Intake/Output: Intake & Output 01/12/24 01/13/24 01/14/24 01/15/24 23:59 23:59 23:59 23:59 Intake Total 1750 1260 1520 120 Balance 1750 1260 1520 120 Meds/Results Medications: Active Medications Generic Name Dose Route Start Last Admin Trade Name Freq PRN Reason Stop Dose Admin Albuterol/Ipratropium 3 ml 01/15/24 09:46 Ipratropium 0.5 Mg/Albuterol Sulfate 2.5 Mg Ampul.Neb 3 Ml INHALATION Q6HRT PRN shortness of breath Amlodipine Besylate 5 mg 01/07/24 09:00 01/15/24 09:42 Amlodipine Besylate 5 Mg Tablet PO 5 mg DAILY MASTER Administration Apixaban 5 mg 01/07/24 21:00 01/15/24 09:42 Apixaban 2.5 Mg Tablet PO 5 mg Q12HR MASTER Administration Aripiprazole 2 mg 01/07/24 09:00 01/15/24 09:41 Aripiprazole 2 Mg Tablet PO 2 mg DAILY MASTER Administration Atorvastatin Calcium 80 mg 01/06/24 21:00 01/14/24 21:36 Atorvastatin 40 Mg Tablet PO 80 mg HS MASTER Administration Azithromycin 500 mg 01/14/24 10:20 01/15/24 09:42 Azithromycin 250 Mg Tablet PO 01/18/24 09:00 500 mg DAILY MASTER Administration Bisacodyl 5 mg 01/06/24 20:46 Bisacodyl 5 Mg Tablet Ec PO DAILY PRN constipation Citalopram Hydrobromide 20 mg 01/06/24 21:00 01/14/24 21:35 Citalopram Hydrobromide 20 Mg Tablet PO 20 mg QHS MASTER Administration Docusate Sodium 100 mg 01/07/24 09:00 01/15/24 09:44 Docusate Sodium 100 Mg Capsule PO Not Given BID MASTER Ferrous Sulfate 325 mg 01/07/24 09:00 01/15/24 09:42 Ferrous Sulfate [address] PO 325 mg Q48H MASTER Administration Fluticasone/Umeclidinium/Vilanterol 1 puff 01/07/24 09:00 01/15/24 09:41 Fluticasone/Umeclidin/Vilanter 100-62.5-25 Mcg Ellipta INHALATION 1 puff DAILY MASTER Administration Furosemide 20 mg 01/07/24 09:00 01/15/24 09:42 Furosemide 20 Mg Tablet PO 20 mg DAILY MASTER Administration Guaifenesin 600 mg 01/06/24 20:46 01/14/24 21:35 Guaifenesin 12 Hr 600 Mg Tabcr PO 600 mg Q12HR PRN Administration Congestion Lidocaine 1 patch 01/06/24 20:46 Lidocaine 5% Patch TRANSDERM DAILY PRN Back Pain Memantine 5 mg 01/06/24 21:00 01/15/24 09:42 Memantine 5 Mg Tablet PO 5 mg Q12H MASTER Administration Mirtazapine 15 mg 01/06/24 21:00 01/14/24 21:35 Mirtazapine 15 Mg Tablet PO 15 mg HS MASTER Administration Multivitamins/Minerals 1 tablet 01/07/24 09:00 01/15/24 09:41 Opti-Gen Tab PO 1 tablet DAILY MASTER Administration Nitrofurantoin Macrocrystals 100 mg 01/09/24 09:00 01/15/24 09:42 Nitrofurantoin Monohyd Macrocr 100 Mg Cap PO 100 mg DAILY MASTER Administration Oxycodone HCl 5 mg 01/13/24 08:07 01/14/24 21:36 Oxycodone Hcl (*Crx) 5 Mg Tab Ir PO 5 mg Q6H PRN Administration Pain Rated 4-6 Pantoprazole Sodium 40 mg 01/07/24 09:00 01/15/24 09:42 Pantoprazole 40 Mg Tablet PO 40 mg QAM MASTER Administration Polyethylene Glycol 17 gm 01/06/24 20:46 01/12/24 20:36 Polyethylene Glycol 3350 17 Gm Powd.Pack PO 17 gm QAM PRN Administration Constipation Pramipexole Dihydrochloride 0.5 mg 01/06/24 21:05 01/14/24 21:36 Pramipexole 0.25 Mg Tablet PO 0.5 mg HS MASTER Administration Prednisone 40 mg 01/14/24 10:20 01/15/24 09:41 Prednisone 20 Mg Tablet PO 40 mg DAILY@0800 MASTER Administration Pregabalin 100 mg 01/06/24 21:00 01/15/24 09:41 Pregabalin (*Crx) 100 Mg Capsule PO 100 mg Q12H MASTER Administration Trazodone HCl 50 mg 01/06/24 20:47 01/14/24 21:35 Trazodone Hcl 50 Mg Tablet PO 50 mg HS PRN Administration Insomnia Vitamin D 1,000 units 01/07/24 09:00 01/15/24 09:42 Cholecalciferol 1,000 Units Tablet PO 1,000 units DAILY MASTER Administration Radiology Results: ITS Impressions Chest X-Ray 01/14/24 10:46 Impression: Stable bibasilar airspace disease, left worse than right. Correlate for pulmonary edema/atelectasis versus pneumonia. Minimal left pleural effusion. Labs Labs: Laboratory Results - last 24 hr 01/14/24 10:49 Puncture Site Right radial ABG pH 7.37 ABG pCO2 64.3 H ABG pO2 44.6 L ABG PO2/FiO2 Ratio Not Reportable ABG HCO3 36.7 H ABG O2 Saturation 80.2 L ABG O2 Content 11.7 L ABG Base Excess 9.6 H A-a Gradient Not Reportable Oxyhemoglobin 79.8 L O2 Delivery Device Bipap O2 Liters/Min 2.0 Expiratory Pressure 10 Inspiratory Pressure 5 Quality VTE Prophylaxis VTE prophylaxis: pharmacologic ordered
[2024-01-15] MEDS: oxyCODONE HCL (*CRX) 5 MG TAB IR PO ×2 (11:14→20:31)
[2024-01-15] MEDS: polyethylene glycoL 3350 17 GM POWD.PACK PO (11:15)
[2024-01-15] MEDS: PRAMIPEXOLE 0.25 MG TABLET 0.5 MG PO (21:47)
[2024-01-15] MEDS: ATORVASTATIN 40 MG TABLET 80 MG PO (21:47)
[2024-01-15] MEDS: traZODone HCL 50 MG TABLET PO (21:47)
[2024-01-15] MEDS: CITALOPRAM HYDROBROMIDE 20 MG TABLET PO (21:47)
[2024-01-15] MEDS: MIRTAZAPINE 15 MG TABLET PO (21:47)
[2024-01-16] VITALS (8 sets, daily range): BP systolic 107–129; BP diastolic 68–87; PULSE 68–89; RESP 17–22; TEMP 36.4–36.6; O2SAT 91–98
[2024-01-16] MEDS: oxyCODONE HCL (*CRX) 5 MG TAB IR PO ×3 (02:13→21:08)
[2024-01-16] MEDS: IPRATROPIUM 0.5 MG/ALBUTEROL SULFATE 2.5 MG AMPUL.NEB 3 ML INHALATION ×2 (06:05→18:54)
[2024-01-16] MEDS: MEMANTINE 5 MG TABLET PO ×2 (09:42→21:07)
[2024-01-16] MEDS: ARIPiprazole 2 MG TABLET PO (09:42)
[2024-01-16] MEDS: OPTI-GEN TAB 1 TABLET PO (09:42)
[2024-01-16] MEDS: predniSONE 20 MG TABLET 40 MG PO (09:42)
[2024-01-16] MEDS: FLUTICASONE/UMECLIDIN/VILANTER 100-62.5-25 MCG ELLIPTA 1 PUFF INHALATION (09:42)
[2024-01-16] MEDS: FUROSEMIDE 20 MG TABLET PO (09:42)
[2024-01-16] MEDS: amLODIPine BESYLATE 5 MG TABLET PO (09:42)
[2024-01-16] MEDS: CHOLECALCIFEROL 1,000 UNITS TABLET 1000 UNITS PO (09:42)
[2024-01-16] MEDS: AZITHROMYCIN 250 MG TABLET 500 MG PO (09:42)
[2024-01-16] MEDS: APIXABAN 2.5 MG TABLET 5 MG PO ×2 (09:42→21:08)
[2024-01-16] MEDS: NITROFURANTOIN MONOHYD MACROCR 100 MG CAP PO (09:43)
[2024-01-16] MEDS: PANTOPRAZOLE 40 MG TABLET PO (09:43)
[2024-01-16] MEDS: PREGABALIN (*CRX) 100 MG CAPSULE PO ×2 (09:43→21:08)
[2024-01-16] MEDS: traZODone HCL 50 MG TABLET PO (21:07)
[2024-01-16] MEDS: CITALOPRAM HYDROBROMIDE 20 MG TABLET PO (21:07)
[2024-01-16] MEDS: PRAMIPEXOLE 0.25 MG TABLET 0.5 MG PO (21:07)
[2024-01-16] MEDS: MIRTAZAPINE 15 MG TABLET PO (21:08)
[2024-01-16] MEDS: ATORVASTATIN 40 MG TABLET 80 MG PO (21:08)
[2024-01-16] MEDS: guaiFENesin 12 HR 600 MG TABCR PO (21:21)
[2024-01-17] VITALS (10 sets, daily range): BP systolic 101–126; BP diastolic 68–74; PULSE 77–97; RESP 17–21; TEMP 36.5–36.9; O2SAT 88–98
[2024-01-17] MEDS: IPRATROPIUM 0.5 MG/ALBUTEROL SULFATE 2.5 MG AMPUL.NEB 3 ML INHALATION ×2 (06:27→18:17)
[2024-01-17] MEDS: ARIPiprazole 2 MG TABLET PO (08:44)
[2024-01-17] MEDS: oxyCODONE HCL (*CRX) 5 MG TAB IR PO ×2 (08:44→21:34)
[2024-01-17] MEDS: amLODIPine BESYLATE 5 MG TABLET PO (08:44)
[2024-01-17] MEDS: APIXABAN 2.5 MG TABLET 5 MG PO ×2 (08:44→21:33)
[2024-01-17] MEDS: AZITHROMYCIN 250 MG TABLET 500 MG PO (08:44)
[2024-01-17] MEDS: OPTI-GEN TAB 1 TABLET PO (08:44)
[2024-01-17] MEDS: FUROSEMIDE 20 MG TABLET PO ×2 (08:45→16:04)
[2024-01-17] MEDS: MEMANTINE 5 MG TABLET PO ×2 (08:45→21:33)
[2024-01-17] MEDS: NITROFURANTOIN MONOHYD MACROCR 100 MG CAP PO (08:45)
[2024-01-17] MEDS: PANTOPRAZOLE 40 MG TABLET PO (08:45)
[2024-01-17] MEDS: FERROUS SULFATE 325 MG TABLET DR PO (08:45)
[2024-01-17] MEDS: PREGABALIN (*CRX) 100 MG CAPSULE PO ×2 (08:45→21:33)
[2024-01-17] MEDS: CHOLECALCIFEROL 1,000 UNITS TABLET 1000 UNITS PO (08:45)
[2024-01-17] MEDS: predniSONE 20 MG TABLET 40 MG PO (08:45)
[2024-01-17] MEDS: FLUTICASONE/UMECLIDIN/VILANTER 100-62.5-25 MCG ELLIPTA 1 PUFF INHALATION (08:47)
--- NOTE | 2024-01-17 15:51 | P.PNCROSS_ITS ---
Event Note Event Note Event Note: Nursing had concerns that patient's lung sounds were coarse. Chest x-ray was ob tained and looks about the same as the other day. The patient denies being short of breath, having chest pain, or a productive cough. She does have coarse crackles to bilateral bases. Will try to obtain a sputum. She has been afebrile, no subjective complaints of fever or chills. Currently she is receiving steroids and azithromycin for COPD exacerbation. She was just treated for pneumonia 12/28 through 01/05 with Rocephin and Azithromycin. Continue with AVAPS, PEP, and IS. Repeat labs in the morning.
[2024-01-17] MEDS: traZODone HCL 50 MG TABLET PO (21:33)
[2024-01-17] MEDS: CITALOPRAM HYDROBROMIDE 20 MG TABLET PO (21:33)
[2024-01-17] MEDS: ATORVASTATIN 40 MG TABLET 80 MG PO (21:33)
[2024-01-17] MEDS: MIRTAZAPINE 15 MG TABLET PO (21:33)
[2024-01-17] MEDS: PRAMIPEXOLE 0.25 MG TABLET 0.5 MG PO (21:34)
[2024-01-17] MEDS: guaiFENesin 12 HR 600 MG TABCR PO (21:34)
[2024-01-18] VITALS (10 sets, daily range): BP systolic 104–134; BP diastolic 57–76; PULSE 64–91; RESP 18–20; TEMP 36.3–36.6; O2SAT 90–98
[2024-01-18] MEDS: IPRATROPIUM 0.5 MG/ALBUTEROL SULFATE 2.5 MG AMPUL.NEB 3 ML INHALATION ×4 (00:17→18:20)
[2024-01-18 06:58] LABS: Basophils Absolute Auto 0.03 K/mm3 (0.00-0.10); Basophils Percent Auto 0.4 % (0.0-1.0); Eosinophils Absolute Auto 0.01 K/mm3 (0.02-0.50); Eosinophils Percent Auto 0.1 % (1.0-6.0); Hematocrit 31.6 % (35.0-42.0); Hemoglobin 9.6 g/dL (11.7-13.8); Immature Granulocyte Absolute 0.05 K/mm3 (0.00-0.00); Immature Granulocyte Percent A 0.7 % (0.0-0.0); Lymphocytes Absolute Auto 2.14 K/mm3 (1.10-4.50); Lymphocytes Percent Auto 28.1 % (18.0-42.0); Mean Corpuscular HGB Conc 30.4 g/dL (32-36); Mean Corpuscular Hemoglobin 28.6 pg (27.0-31.0); Mean Platelet Volume 9.7 fl (9.2-11.8); Monocytes Absolute Auto 0.61 K/mm3 (0.10-0.90); Neutrophils Absolute Auto 4.78 K/mm3 (1.70-7.20); Neutrophils Percent Auto 62.7 % (50.0-70.0); Platelet Count Result 173 K/mm3 (150-420); Red Blood Count 3.36 M/mm3 (4.20-5.40); White Blood Count 7.6 K/mm3 (4.8-10.8)
[2024-01-18 07:15] LABS: Alanine Aminotransferase 50 U/L (14-59); Albumin Level 2.7 g/dL (3.4-5.0); Alkaline Phosphatase 111 U/L (46-116); Anion Gap -2 mmol/L (4-12); Aspartate Amino Transferase 41 U/L (15-37); Bilirubin,Total 0.5 mg/dL (0.00-1.00); Blood Urea Nitrogen 27 mg/dL (7-18); Calcium 8.2 mg/dL (8.5-10.1); Carbon Dioxide 43 mmol/L (21-32); Chloride 102 mmol/L (98-108); Estimated Glomerular Filt Rate 49; Glucose 90 mg/dL (70-99); Osmolality Calculated 301 mOsm/kg (285-295); Potassium 3.3 mmol/L (3.5-5.1); Sodium 143 mmol/L (136-145)
[2024-01-18] MEDS: FLUTICASONE/UMECLIDIN/VILANTER 100-62.5-25 MCG ELLIPTA 1 PUFF INHALATION (08:58)
[2024-01-18] MEDS: AZITHROMYCIN 250 MG TABLET 500 MG PO (09:00)
[2024-01-18] MEDS: FUROSEMIDE 20 MG TABLET PO (09:00)
[2024-01-18] MEDS: predniSONE 20 MG TABLET 40 MG PO (09:00)
[2024-01-18] MEDS: OPTI-GEN TAB 1 TABLET PO (09:00)
[2024-01-18] MEDS: NITROFURANTOIN MONOHYD MACROCR 100 MG CAP PO (09:00)
[2024-01-18] MEDS: CHOLECALCIFEROL 1,000 UNITS TABLET 1000 UNITS PO (09:00)
[2024-01-18] MEDS: PREGABALIN (*CRX) 100 MG CAPSULE PO ×2 (09:00→21:28)
[2024-01-18] MEDS: PANTOPRAZOLE 40 MG TABLET PO (09:00)
[2024-01-18] MEDS: APIXABAN 2.5 MG TABLET 5 MG PO ×2 (09:00→21:29)
[2024-01-18] MEDS: amLODIPine BESYLATE 5 MG TABLET PO (09:00)
[2024-01-18] MEDS: MEMANTINE 5 MG TABLET PO ×2 (09:00→21:28)
[2024-01-18] MEDS: ARIPiprazole 2 MG TABLET PO (09:00)
[2024-01-18] MEDS: oxyCODONE HCL (*CRX) 5 MG TAB IR PO ×2 (09:01→21:29)
[2024-01-18] MEDS: POTASSIUM CHLORIDE 20 MEQ ER TABLET 40 MEQ PO (09:04)
--- NOTE | 2024-01-18 10:39 | P.PNCROSS_ITS ---
Event Note Event Note Event Note: Labs reviewed. No leukocytosis. She is sitting up in the chair. She feels like her breathing is the same when she first came in but has not returned to her baseline prior to her stay at [place]. Unfortunately this may be here new baseline. End dates placed on azithromycin and steroids.
[2024-01-18] MEDS: traZODone HCL 50 MG TABLET PO (21:28)
[2024-01-18] MEDS: MIRTAZAPINE 15 MG TABLET PO (21:28)
[2024-01-18] MEDS: guaiFENesin 12 HR 600 MG TABCR PO (21:28)
[2024-01-18] MEDS: CITALOPRAM HYDROBROMIDE 20 MG TABLET PO (21:28)
[2024-01-18] MEDS: PRAMIPEXOLE 0.25 MG TABLET 0.5 MG PO (21:29)
[2024-01-18] MEDS: ATORVASTATIN 40 MG TABLET 80 MG PO (21:29)
[2024-01-19] VITALS: BP 97/66; PULSE 93; RESP 18; TEMP 36.9; O2SAT 90
[2024-01-19 05:30] VITALS: O2SAT 93
[2024-01-19 08:00] VITALS: BP 151/81; PULSE 75; RESP 20; TEMP 35.9; O2SAT 97
[2024-01-19] MEDS: NITROFURANTOIN MONOHYD MACROCR 100 MG CAP PO (08:28)
[2024-01-19] MEDS: CHOLECALCIFEROL 1,000 UNITS TABLET 1000 UNITS PO (08:28)
[2024-01-19] MEDS: PANTOPRAZOLE 40 MG TABLET PO (08:28)
[2024-01-19] MEDS: PREGABALIN (*CRX) 100 MG CAPSULE PO ×2 (08:28→21:40)
[2024-01-19] MEDS: amLODIPine BESYLATE 5 MG TABLET PO (08:28)
[2024-01-19] MEDS: OPTI-GEN TAB 1 TABLET PO (08:28)
[2024-01-19] MEDS: MEMANTINE 5 MG TABLET PO ×2 (08:28→21:40)
[2024-01-19] MEDS: APIXABAN 2.5 MG TABLET 5 MG PO ×2 (08:29→21:41)
[2024-01-19] MEDS: FLUTICASONE/UMECLIDIN/VILANTER 100-62.5-25 MCG ELLIPTA 1 PUFF INHALATION (08:29)
[2024-01-19] MEDS: FUROSEMIDE 20 MG TABLET PO (08:29)
[2024-01-19] MEDS: FERROUS SULFATE 325 MG TABLET DR PO (08:29)
[2024-01-19] MEDS: predniSONE 20 MG TABLET 40 MG PO (08:29)
[2024-01-19] MEDS: ARIPiprazole 2 MG TABLET PO (08:29)
--- NOTE | 2024-01-19 12:51 | P.PNCROSS_ITS ---
Event Note Event Note Event Note: Nurse infromed me that there were preliminary results. I was reviewed the resu lts there were few of yeast and some mixed dinah we will wait for final results to see if anything else is needed.
[2024-01-19 16:00] VITALS: BP 106/79; PULSE 76; RESP 16; TEMP 36.5; O2SAT 95
[2024-01-19] MEDS: oxyCODONE HCL (*CRX) 5 MG TAB IR PO (16:40)
[2024-01-19] MEDS: polyethylene glycoL 3350 17 GM POWD.PACK PO (16:45)
[2024-01-19 20:00] VITALS: PULSE 76; RESP 16; O2SAT 95
[2024-01-19] MEDS: CITALOPRAM HYDROBROMIDE 20 MG TABLET PO (21:40)
[2024-01-19] MEDS: PRAMIPEXOLE 0.25 MG TABLET 0.5 MG PO (21:40)
[2024-01-19] MEDS: MIRTAZAPINE 15 MG TABLET PO (21:40)
[2024-01-19] MEDS: traZODone HCL 50 MG TABLET PO (21:40)
[2024-01-19] MEDS: guaiFENesin 12 HR 600 MG TABCR PO (21:40)
[2024-01-19] MEDS: ATORVASTATIN 40 MG TABLET 80 MG PO (21:41)
[2024-01-20] VITALS: BP 106/74; PULSE 93; RESP 18; TEMP 36.7; O2SAT 93
[2024-01-20 05:30] VITALS: O2SAT 93
[2024-01-20 08:00] VITALS: BP 143/97; PULSE 78; RESP 20; TEMP 36.4; O2SAT 95
[2024-01-20] MEDS: predniSONE 20 MG TABLET 40 MG PO (08:58)
[2024-01-20] MEDS: APIXABAN 2.5 MG TABLET 5 MG PO ×2 (09:19→21:34)
[2024-01-20] MEDS: FLUTICASONE/UMECLIDIN/VILANTER 100-62.5-25 MCG ELLIPTA 1 PUFF INHALATION (09:19)
[2024-01-20] MEDS: CHOLECALCIFEROL 1,000 UNITS TABLET 1000 UNITS PO (09:19)
[2024-01-20] MEDS: oxyCODONE HCL (*CRX) 5 MG TAB IR PO ×3 (09:19→21:42)
[2024-01-20] MEDS: FUROSEMIDE 20 MG TABLET PO (09:19)
[2024-01-20] MEDS: ARIPiprazole 2 MG TABLET PO (09:19)
[2024-01-20] MEDS: PREGABALIN (*CRX) 100 MG CAPSULE PO ×2 (09:19→21:34)
[2024-01-20] MEDS: OPTI-GEN TAB 1 TABLET PO (09:20)
[2024-01-20] MEDS: PANTOPRAZOLE 40 MG TABLET PO (09:20)
[2024-01-20] MEDS: amLODIPine BESYLATE 5 MG TABLET PO (09:20)
[2024-01-20] MEDS: MEMANTINE 5 MG TABLET PO ×2 (09:20→21:34)
[2024-01-20] MEDS: guaiFENesin 12 HR 600 MG TABCR PO ×2 (09:20→21:34)
[2024-01-20] MEDS: NITROFURANTOIN MONOHYD MACROCR 100 MG CAP PO (09:20)
[2024-01-20 12:30] VITALS: PULSE 76; RESP 18; O2SAT 96
[2024-01-20] MEDS: IPRATROPIUM 0.5 MG/ALBUTEROL SULFATE 2.5 MG AMPUL.NEB 3 ML INHALATION (12:35)
[2024-01-20 12:39] VITALS: PULSE 78; RESP 18; O2SAT 98
[2024-01-20 16:00] VITALS: BP 98/63; PULSE 76; RESP 20; TEMP 36.6; O2SAT 95
--- NOTE | 2024-01-20 18:19 | PC.NURSE ---
Margarito Ogden, ENDO TECH/Hospitalist, notified of preliminary sputum culture results. No new orders at this time.
--- NOTE | 2024-01-20 21:09 | P.PNCROSS_ITS ---
Event Note Event Note Event Note: reviewed patient oral swab yeast noted Nystatin ordered
[2024-01-20] MEDS: MIRTAZAPINE 15 MG TABLET PO (21:34)
[2024-01-20] MEDS: PRAMIPEXOLE 0.25 MG TABLET 0.5 MG PO (21:35)
[2024-01-20] MEDS: CITALOPRAM HYDROBROMIDE 20 MG TABLET PO (21:35)
[2024-01-20] MEDS: traZODone HCL 50 MG TABLET PO (21:35)
[2024-01-20] MEDS: ATORVASTATIN 40 MG TABLET 80 MG PO (21:35)
[2024-01-20] MEDS: NYSTATIN 100,000 UNITS/ML SUSP 5 ML ORAL.SUSP PO (21:36)
[2024-01-21] VITALS: BP 116/68; PULSE 95; RESP 17; TEMP 36.6; O2SAT 93
[2024-01-21 05:30] VITALS: O2SAT 95
[2024-01-21 08:00] VITALS: BP 92/58; PULSE 74; RESP 17; TEMP 36.6; O2SAT 92
[2024-01-21] MEDS: APIXABAN 2.5 MG TABLET 5 MG PO ×2 (09:35→21:42)
[2024-01-21] MEDS: CHOLECALCIFEROL 1,000 UNITS TABLET 1000 UNITS PO (09:36)
[2024-01-21] MEDS: ARIPiprazole 2 MG TABLET PO (09:36)
[2024-01-21] MEDS: OPTI-GEN TAB 1 TABLET PO (09:36)
[2024-01-21] MEDS: PANTOPRAZOLE 40 MG TABLET PO (09:36)
[2024-01-21] MEDS: MEMANTINE 5 MG TABLET PO ×2 (09:36→21:43)
[2024-01-21] MEDS: FUROSEMIDE 20 MG TABLET PO (09:36)
[2024-01-21] MEDS: PREGABALIN (*CRX) 100 MG CAPSULE PO ×2 (09:36→21:43)
[2024-01-21] MEDS: FERROUS SULFATE 325 MG TABLET DR PO (09:36)
[2024-01-21] MEDS: NYSTATIN 100,000 UNITS/ML SUSP 5 ML ORAL.SUSP PO ×4 (09:38→21:41)
[2024-01-21] MEDS: FLUTICASONE/UMECLIDIN/VILANTER 100-62.5-25 MCG ELLIPTA 1 PUFF INHALATION (09:43)
[2024-01-21] MEDS: NITROFURANTOIN MONOHYD MACROCR 100 MG CAP PO (09:43)
[2024-01-21 16:00] VITALS: BP 158/89; PULSE 75; RESP 16; TEMP 36.3; O2SAT 95
[2024-01-21] MEDS: PRAMIPEXOLE 0.25 MG TABLET 0.5 MG PO (21:41)
[2024-01-21] MEDS: oxyCODONE HCL (*CRX) 5 MG TAB IR PO (21:42)
[2024-01-21] MEDS: traZODone HCL 50 MG TABLET PO (21:43)
[2024-01-21] MEDS: MIRTAZAPINE 15 MG TABLET PO (21:43)
[2024-01-21] MEDS: ATORVASTATIN 40 MG TABLET 80 MG PO (21:43)
[2024-01-21] MEDS: CITALOPRAM HYDROBROMIDE 20 MG TABLET PO (21:43)
[2024-01-21] MEDS: guaiFENesin 12 HR 600 MG TABCR PO (21:43)
[2024-01-22] VITALS: BP 112/76; PULSE 75; RESP 17; TEMP 36.1; O2SAT 95
[2024-01-22 07:41] LABS: Hematocrit 34.1 % (35.0-42.0); Hemoglobin 10.4 g/dL (11.7-13.8); Mean Corpuscular HGB Conc 30.5 g/dL (32-36); Mean Corpuscular Hemoglobin 28.3 pg (27.0-31.0); Mean Corpuscular Volume 92.9 fL (78.0-102.0); Mean Platelet Volume 9.4 fl (9.2-11.8); Platelet Count Result 191 K/mm3 (150-420); Red Blood Count 3.67 M/mm3 (4.20-5.40); Red Cell Distribution Width 16.3 % (11.6-14.4); White Blood Count 8.9 K/mm3 (4.8-10.8)
[2024-01-22 07:58] LABS: Alanine Aminotransferase 72 U/L (14-59); Albumin Level 2.6 g/dL (3.4-5.0); Alkaline Phosphatase 105 U/L (46-116); Anion Gap -3 mmol/L (4-12); Aspartate Amino Transferase 46 U/L (15-37); Bilirubin,Total 0.7 mg/dL (0.00-1.00); Blood Urea Nitrogen 31 mg/dL (7-18); Calcium 8.3 mg/dL (8.5-10.1); Carbon Dioxide 44 mmol/L (21-32); Chloride 103 mmol/L (98-108); Estimated Glomerular Filt Rate 47; Glucose 84 mg/dL (70-99); Osmolality Calculated 303 mOsm/kg (285-295); Potassium 3.6 mmol/L (3.5-5.1); Sodium 144 mmol/L (136-145); Total Protein 5.5 g/dL (6.4-8.2)
[2024-01-22 08:00] VITALS: BP 130/74; PULSE 91; RESP 18; TEMP 36.5; O2SAT 97
[2024-01-22] MEDS: PANTOPRAZOLE 40 MG TABLET PO (08:16)
[2024-01-22] MEDS: MEMANTINE 5 MG TABLET PO (08:16)
[2024-01-22] MEDS: FLUTICASONE/UMECLIDIN/VILANTER 100-62.5-25 MCG ELLIPTA 1 PUFF INHALATION (08:16)
[2024-01-22] MEDS: NYSTATIN 100,000 UNITS/ML SUSP 5 ML ORAL.SUSP PO (08:16)
[2024-01-22] MEDS: CHOLECALCIFEROL 1,000 UNITS TABLET 1000 UNITS PO (08:16)
[2024-01-22] MEDS: FUROSEMIDE 20 MG TABLET PO (08:16)
[2024-01-22] MEDS: amLODIPine BESYLATE 5 MG TABLET PO (08:17)
[2024-01-22] MEDS: APIXABAN 2.5 MG TABLET 5 MG PO (08:17)
[2024-01-22] MEDS: NITROFURANTOIN MONOHYD MACROCR 100 MG CAP PO (08:17)
[2024-01-22] MEDS: PREGABALIN (*CRX) 100 MG CAPSULE PO (08:17)
[2024-01-22] MEDS: ARIPiprazole 2 MG TABLET PO (08:17)
[2024-01-22] MEDS: OPTI-GEN TAB 1 TABLET PO (08:17)
--- NOTE | 2024-01-22 09:35 | P.DS_ITS ---
DS: Admitting Diagnosis Discharge Date 01/22/2024 Admitting Diagnosis Deconditioned/ generalized weakness/ rehabilitation DS: Discharge Diagnosis Discharge Diagnosis (1) Weakness: Code(s): R53.1 - Weakness Status: Acute (2) Acute on chronic respiratory failure with hypoxia and hypercapnia: Code(s): J96.21 - Acute and chronic respiratory failure with hypoxia; J96.22 - Acute and chronic respiratory failure with hypercapnia Status: Acute (3) Hypertension: Code(s): I10 - Essential (primary) hypertension Status: Acute (4) Pulmonary embolism: Code(s): I26.99 - Other pulmonary embolism without acute cor pulmonale Status: Acute Plan Disposition: Discharged to Assisted living facility will continue with physical, occupational and speech therapy DS: Summary Hospital Course Reason for hospitalization: Deconditioned/ generalized weakness/ rehabilitation Hospital Course: patient was an 88-year-old female who had been admitted to a [facility] swing bed for extended rehabilitation with physical therapy, occupational therapy and speech therapy. Patient prior to admission was hospitalized at [facility] for pneumonia, sepsis and new pulmonary embolism. Patient does have chronic respiratory failure with hypoxia and currently wears 2 L oxygen. During patient's admission she had some episodes dyspnea and hypoxia needing higher levels her normal oxygen saturation she had been initiated on azithromycin and steroids for a COPD exacerbation and placed on AVAPS, peep an IS with improvement. A sputum culture had been obtained however just showed yeast and patient was started on nystatin. 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 patient was diagnosed with pulmonary embolism prior to admission and had been started Eliquis education blood thinners reviewed with patient family to monitor for risk of bleeding and to seek medical attention if patient were to fall. Patient with overall improvement to her mobility as well as dysphagia last treatment of speech patient had no difficulty with swallowing water through a straw no cough was noted, education given on practicing aspiration risk such sitting at a 90 degree angle all meals. Patient will have continued physical and occupational therapy at her assisted living however she is mobile at this time with her walker and able to perform ADLs. patient was discharged back to assisted living facility transported with family. Status at Discharge Functional status at discharge: uses cane/walker Time Spent with Patient Time attestation: Total time spent providing and/or coordinating discharge services: Time spent: Greater than 30 minutes Exam Narrative: General: A chronically ill-appearing, female lying in bed NC in place in no acute distress HEENT: PERRL, EOMI. Oral mucosa moist. Neck: Supple. No midline cervical tenderness. Respiratory: Respirations are non- labored and lungs with mild wheezing chronic. Cardiovascular: Regular rate and rhythm with S1-S2. Gastrointestinal: Large round Abdomen is soft, non-tender, and non-distended with positive bowel sounds. Skin: Warm and dry. No rash or lesions on limited exam. Extremities: No cyanosis, clubbing, or edema. Radial and pedal pulses intact. Neurological: Alert and oriented. Psychiatric: Pleasant and cooperative with normal mood and affect. Judgment and insight intact. DS: Data Data Completed and Pending Labs on day of discharge: Labs from last 24 hours 01/22/24 07:22 WBC 8.9 RBC 3.67 L Hgb 10.4 L Hct 34.1 L MCV 92.9 MCH 28.3 MCHC 30.5 L RDW 16.3 H Plt Count 191 MPV 9.4 Sodium 144 Potassium 3.6 Chloride 103 Carbon Dioxide 44 H Anion Gap -3 L BUN 31 H Creatinine 1.10 H Estim Creat Clear Calc Not Reportable Estimated GFR 47 L Glucose 84 Calculated Osmolality 303 H Calcium 8.3 L Total Bilirubin 0.7 AST 46 H ALT 72 H Alkaline Phosphatase 105 Total Protein 5.5 L Albumin 2.6 L Imaging Radiologist's impression: Radiology Results: ITS Impressions Chest CTA 12/29/23 23:08 IMPRESSION: Small nonocclusive filling defects in several left lower lobe segmental arteries. Low clot burden. The RV/LV ratio is 1.5 but this may be confounded by left ventricular hypertrophy. No septal bowing or significant hepatic vein reflux. Segmental right middle lobe and bilateral lower lobe dependent consolidations, concerning for pneumonia. Aspiration should be considered in the differential. Small left pleural effusion. Subcarinal and bilateral hilar lymphadenopathy. Modified Barium Swallow 01/01/24 10:03 IMPRESSION: 1. Aspiration. 2. Please refer to the speech therapy report for recommendations. Chest X-Ray 01/03/24 11:21 IMPRESSION: 1. Small pleural effusions. 2. Airspace opacities in the lower lung zones, consistent with atelectasis or less likely pneumonia. 3. Large hiatal hernia. Discharge Plan Discharge Attending physician on discharge: Myron Harris Discharging Clinician: Adriana Workman Anticipated Discharge Date/Time: 01/22/24 09:32 Patient Disposition: [facility] Activity: may shower and as tolerated Diet: as tolerated and other - see discharge instructions Discharge Instructions: Per Care Coordination: To continue with PT/OT/ST at [facility] at discharge. Nursing please call nurse report to Carmen at [phone] and fax discharge summary with medication list to [phone]. Nursing please fax discharge summary to Alexsandra Marquez's office at [phone]. Have PMD order OP ST. You are Being discharged after rehabilitation following a diagnosis of sepsis, pneumonia, pulmonary embolism. physical, occupational, speech therapy will continue at her assisted living facility for continued strength training. Eliquis was started for your pulmonary embolism which is a blood thinner please read attached education and take caution of risk for bleeding. Patient is currently on a Thickened Liquid diet it is recommended to stay at 90 degree angle when eating all meals How can you care for yourself at home? ? Keep track of any new symptoms or changes in your symptoms. ? Rest until you feel better. ? Be safe with medicines. Take your medicines exactly as prescribed. Call your doctor if you think you are having a problem with your medicine. ? Do not drive after taking a prescription pain medicine. ? Ensure to follow-up with primary care physician as indicated and provide updated medication list provided to you at discharge. When should you call for help? Call 911 anytime you think you may need emergency care. For example, call if: ? You passed out (lost consciousness). Call your doctor now or seek immediate medical care if: ? You have new symptoms like fever, difficulty breathing, Chest pain, vomiting, or rash. ? You have new or different pain. ? You are confused and are having trouble thinking clearly. ? Your symptoms are getting worse. Watch closely for changes in your health, and be sure to contact your doctor if: ? You do not get better as expected. Patient Instructions: Antibiotic Form, Trazodone (By mouth), Nystatin (By mouth), Apixaban (By mouth), Pulmonary Embolism (DC), Pain Management in Older Adults (GEN), Fall Prevention for Older Adults (DC), Using Oxygen at Home (DC), Pneumonia (DC), Aspiration Precautions (DC) Patient Language: Yoruba Stand Alone Forms: General Discharge Information, Alf Discharge Follow-up/Referrals: Alma,BERE Upton [Primary Care Provider] - 01/28/24 1:15 pm (speak to about out patient Speech Therapy.) Discharge Medications: New nystatin 100,000 unit/mL Suspension 5 ml PO QID Qty: 60 0RF trazodone 50 mg Tablet 50 mg PO HS PRN (Reason: Insomnia) Qty: 30 0RF oxycodone 5 mg Tablet 5 mg PO Q6H PRN (Reason: Pain Rated 4-6) Qty: 20 0RF Continued docusate sodium 100 mg Capsule 100 mg PO BID Qty: 60 0RF mirtazapine [Remeron] 15 mg Tablet 15 mg PO HS Qty: 30 0RF oxycodone-acetaminophen 7.5-325 mg tablet 1 tablet PO Q6H PRN (Reason: Pain (Scale Score 4-6)) Qty: 20 0RF nitrofurantoin monohyd/m-cryst [Macrobid] 100 mg capsule 100 mg PO DAILY Qty: 30 0RF Rx Instructions: must administer with a meal/food. To restart when she completes the Augmentin. Restart on the . Eliquis 5 mg Tablet 5 mg PO Q12HR Qty: 60 0RF bisacodyl 5 mg tablet,delayed release (DR/EC) 5 mg PO DAILY PRN (Reason: constipation ) aripiprazole 2 mg tablet 2 mg PO DAILY furosemide 20 mg tablet 20 mg PO DAILY polyethylene glycol 3350 [Miralax] 17 gram Powder In Packet 17 g PO QAM PRN (Reason: Constipation) Qty: 30 0RF amlodipine [Norvasc] 5 mg Tablet 5 mg PO DAILY Qty: 90 0RF atorvastatin 80 mg Tablet 80 mg PO HS memantine 5 mg Tablet 5 mg PO Q12H pramipexole [Mirapex] 0.5 mg Tablet 0.5 mg PO HS ferrous sulfate 325 mg (65 mg iron) tablet 325 mg PO Q48H pregabalin 100 mg capsule 100 mg PO Q12H citalopram 20 mg tablet 20 mg PO QHS lidocaine [Lidocaine Pain Relief] 4 % adhesive patch,medicated 1 patch transdermal DAILY PRN (Reason: Back Pain) Rx Instructions: Apply to back as needed guaifenesin [Mucus Relief ER] 600 mg tablet extended release 12hr 600 mg PO Q12HR PRN (Reason: Congestion) PreserVision AREDS-2 250-90-40-1 mg Capsule 1 tablet PO DAILY albuterol sulfate 2.5 mg /3 mL (0.083 %) Solution For Nebulization 2.5 mg INHALATION Q8H PRN (Reason: wheezing) cholecalciferol (vitamin D3) [Vitamin D3] 25 mcg (1,000 unit) Capsule 25 mcg PO DAILY pantoprazole 40 mg tablet,delayed release (DR/EC) 40 mg PO QAM Qty: 30 0RF Trelegy Ellipta 100-62.5-25 mcg Blister With Device 1 inh INHALATION DAILY Qty: 28 0RF Discontinued amoxicillin-pot clavulanate [Augmentin] 500-125 mg Tablet 1 tablet PO Q8HR Qty: 6 0RF Rx Instructions: Completed after the 01/08/24 noon dose Eliquis 5 mg Tablet 10 mg PO Q12HR Qty: 2 0RF Rx Instructions: Patient to take 10 mg at HS on 01/06/24 and in the a.m. on 01/07/2024 then decrease to 5mg Q12H starting with the HS dose. Date of admission: 01/06/24 17:01 Primary Care Provider: AlmaAlexsandra Admitting Provider: Myron Harris Attending physician on admission: Adriana Workman Condition: Improved Quality VTE Prophylaxis VTE prophylaxis: pharmacologic ordered Hospitalist MIPS Heart Failure (Exclusion) Patient has history of Heart Transplant or Left Ventricular Assistive Device?: No IF YES, STOP HERE Heart Failure (Qualifier) Patient has current or prior documentation of LVEF less than or equal to 40%, or mod/servere depressed LVSF?: No IF NO, STOP HERE
--- NOTE | 2024-01-22 10:20 | PC.NURSE ---
Report called to Tasha at [facility].
--- NOTE | 2024-01-22 10:30 | PC.NURSE ---
Discharge instructions reviewed with patient and her son. All questions answered. Pt transported via wheelchair and assisted into private vehicle.
[2024-01-22 10:38] VITALS: O2SAT 95
--- NOTE | 2024-01-26 12:51 | PC.NURSE ---
Discharge call back, no questions regarding dc instructions
== END 2024-01-22 10:30 | DRG 947 ==
PROVIDERS: Nurse Practitioner Acute Care; Admitting Provider Internal Medicine; PCP Physician Assistant; Visit Provider Nurse Practitioner Family
DX: R53.1 Weakness (principal); I26.99 Other pulmonary embolism without acute cor pulmonale; J18.9 Pneumonia, unspecified organism; I50.32 Chronic diastolic (congestive) heart failure; J96.11 Chronic respiratory failure with hypoxia; J96.12 Chronic respiratory failure with hypercapnia; J44.1 Chronic obstructive pulmonary disease with (acute) exacerbation; J44.0 Chronic obstructive pulmonary disease with (acute) lower respiratory infection; I48.0 Paroxysmal atrial fibrillation; I11.0 Hypertensive heart disease with heart failure; D50.9 Iron deficiency anemia, unspecified; E78.5 Hyperlipidemia, unspecified; R41.9 Unspecified symptoms and signs involving cognitive functions and awareness; R13.10 Dysphagia, unspecified; K21.9 Gastro-esophageal reflux disease without esophagitis; K44.9 Diaphragmatic hernia without obstruction or gangrene; G47.33 Obstructive sleep apnea (adult) (pediatric); F32.A Depression, unspecified; F41.9 Anxiety disorder, unspecified; Z99.81 Dependence on supplemental oxygen; Z98.1 Arthrodesis status; Z86.718 Personal history of other venous thrombosis and embolism; Z79.01 Long term (current) use of anticoagulants
CPT/HCPCS: 36415; 36600; 71045; 80053; 81001; 82805; 82948; 85018; 85025; 85027; 87070; 87205; 92526; 92610; 94640; 97110; 97112; 97161; 97165; 97530; 97535; A9270; J7512

== ENCOUNTER 2024-01-30 12:42 | Inpatient (IN) | payer MEDICARE, SELFPAY ==
[2024-01-30] VITALS (27 sets, daily range): BP systolic 76–114; BP diastolic 48–74; PULSE 77–115; RESP 12–23; TEMP 36.3–37.1; O2SAT 91–100; BMI 35.6
--- NOTE | ~2024-01-30 | XR_ITS ---
XR chest 1V portable DATE: 02/06/2024 15:38 INDICATION: Shortness of breath TECHNIQUE: Portable AP chest on 01/16 1536 hours COMPARISON: 12/30/2023 2 view chest FINDINGS: Cardiomegaly. Aortic atherosclerosis. Relatively high diaphragm, especially on the right. There is bibasilar infiltrate and/or atelectasis. Large hiatal hernia. Osteopenia. Posterior surgical fusion of the cervical spine. Vertebroplasty at T12. Status post cholecystectomy. IMPRESSION: Right basilar infiltrate and/or atelectasis Reviewed, dictated and finalized at location A.
--- NOTE | ~2024-01-30 | XR_ITS ---
CHEST RADIOGRAPH, PA AND LATERAL CLINICAL HISTORY: Pulmonary edema . COMPARISON: 02/02/2024 TECHNIQUE: PA and lateral views of the chest. FINDINGS The cardiomediastinal silhouette is enlarged, and partially obscured. Large hiatal hernia is redemonstrated, although less distended than previous examination. Elevation of the right hemidiaphragm with adjacent compressive atelectasis. Platelike atelectasis persists within the left mid to lower lung field. Patchy infiltration the bilateral lung bases with air bronchograms detected on lateral view, possibly an early infiltrate. Improved pulmonary vascular congestion when compared with 02/02/2024. Vertebral augmentation within the lower thoracic and upper lumbar spines with fixation in the upper t horacic/lower cervical spine. Remaining visualized osseous structures and soft tissues are otherwise unremarkable. IMPRESSION: Improved pulmonary vascular congestion when compared with previous study (02/02/2024). Small bibasilar infiltrates are suspected. Reviewed, dictated and finalized at location A. IMPRESSION: Improved pulmonary vascular congestion when compared with previous study (02/01). Small bibasilar infiltrates are suspected.
--- NOTE | ~2024-01-30 | XR_ITS ---
XR chest 2V 01/30/2024 13:31 Indication: Shortness of breath and weakness Procedure: 2 view chest Comparison: Comparison to multiple prior studies sequentially, with oldest reviewed study dated 12/29. Findings: Cardiomegaly. Left basilar airspace disease, suspicious for pneumonia. Elevated right diaph ragm. There is a right sixth rib fracture, likely chronic. Large hiatal hernia. Impression: 1: Left basilar airspace disease may represent atelectasis or pneumonia. Reviewed, dictated and finalized at location B. Impression: 1: Left basilar airspace disease may represent atelectasis or pneumonia.
--- NOTE | ~2024-01-30 | XR_ITS ---
EXAMINATION: XR ankle LT min 3V DATE: 02/04/2024 09:43 INDICATION: Left ankle pain. TECHNIQUE: 4 views of left ankle were obtained. COMPARISON: None. FINDINGS: Bone alignment is normal on these nonweightbearing images. There are changes of arthrodesis procedures of the second-fourth proximal interphalangeal joints. No fracture. The ankle joint space is normal. IMPRESSION: 1. No fracture. Reviewed, dictated and finalized at location A. IMPRESSION: 1. No fracture.
--- NOTE | ~2024-01-30 | XR_ITS ---
EXAMINATION: XR foot LT 2V DATE: 02/04/2024 09:43 INDICATION: Left foot pain. TECHNIQUE: 2 views of left foot were obtained. COMPARISON: None. FINDINGS: Alignment is normal on these nonweightbearing images. No fracture. There are changes of art hrodesis of the second-fourth proximal interphalangeal joints with screws. The screws extend beyond t he distal articular surfaces at the second and third middle phalanges. There is moderate osteoarthrit is of fifth metatarsophalangeal joint and mild osteoarthritis of second metatarsophalangeal joint and some of the interphalangeal joints. IMPRESSION: 1. Arthrodesis procedures of second-fourth proximal interphalangeal joints. 2. Polyarticular osteoarthritis. Reviewed, dictated and finalized at location A.
--- NOTE | ~2024-01-30 | XR_ITS ---
Portable chest x-ray Comparison: 01/30/2024 Clinical History: Cough Findings: There is discoid right mid lung atelectasis. There is increased central congestive change and increased interstitial prominence. There is mild patchy bibasilar airspace disease. Cardiomedias tinal silhouette is stable. Bones and soft tissues are unremarkable. Impression: Probable developing bibasilar and interstitial pulmonary edema, versus possibly pneumonia. Correlate clinically. Discoid right mid lung atelectasis. Reviewed, dictated and finalized at location M. Impression: Probable developing bibasilar and interstitial pulmonary edema, versus possibly pneumonia. Correlate clinically. Discoid right mid lung atelectasis.
--- NOTE | ~2024-01-30 | XR_ITS ---
XR chest 1V portable Ordering provider: Manuela Adkins APRN History: 89 years Female with . SOB . Comparison: February 01, 2024 FINDINGS: MEDIASTINUM: The cardiac silhouette is not enlarged. Congestive clive. LUNGS: No effusions or pneumothorax. Bibasilar opacification suggestive of atelectasis versus pneumon ia. Bilateral interstitial changes which may indicate pneumonitis. Underlying pulmonary edema is not. OTHER: No free air under the diaphragm. Sliding hiatus hernia is noted. IMPRESSION: Bibasilar pneumonia. Pulmonary edema versus pneumonitis bilaterally. Sliding hiatus hernia. Reviewed, dictated and finalized at location A.
--- NOTE | ~2024-01-30 | CT_ITS ---
Clinical Indication: Pulmonary embolus CT Scan of the Chest with Contrast: Technique: Contiguous sections were acquired throughout the chest after intravenous administration of 100 cc of Omnipaque 350. Dose reduction technique was used on this scan by utilizing automated expos ure control and iterative reconstruction technique. The dose-length product (DLP) was 623.41 mGy-cm. Findings: There is no evidence of any significant mediastinal, hilar or axillary lymphadenopathy. There is no f illing defect in the pulmonary arterial tree to suggest pulmonary embolus. There is no evidence of ao rtic dissection or aneurysm. No pericardial effusion. There are minimal bilateral pleural effusions, with bibasilar atelectatic change, right worse than le ft. There is probable interstitial edema.. Probable minimal patchy groundglass pulmonary edema as wel l. Images through the upper abdomen reveal moderate to large hiatal hernia. Question mild cirrhotic morp hology of liver. T12 vertebroplasty noted. Moderate to severe compression fracture of L1 noted. There is mild compression fracture of T11. Impression: No evidence of pulmonary embolus, aortic dissection, or aortic aneurysm. Mild mixed alveolar and interstitial pulmonary edema. Minimal pleural effusions with probable bibasilar/dependent atelectatic change, right worse than left . Correlate clinically for pneumonia. Compression fractures, as above. Questionable mild cirrhotic change of the liver. Correlate clinically and with LFTs. Reviewed, dictated and finalized at [facility]. Impression: No evidence of pulmonary embolus, aortic dissection, or aortic aneurysm. Mild mixed alveolar and interstitial pulmonary edema. Minimal pleural effusions with probable bibasilar/dependent atelectatic change, right worse than left. Correlate clinically for pneumonia. Compression fractures, as above. Questionable mild cirrhotic change of the liver. Correlate clinically and with LFTs.
--- NOTE | 2024-01-30 12:59 | ECG_ITS ---
Test Date: 2024-01-30 13:08:31 Measurements Intervals [place] Rate: 99 P: 0 [place]: 0 QRS: 21 QRSD: 141 T: -14 QT: 360 QTc: 462 Interpretive Statements BASELINE ARTIFACT RESULTS AND DIFFICULT INTERPRETATION SUSPECT SINUS RHYTHM RIGHT BUNDLE BRANCH BLOCK [120+ ms QRS DURATION, UPRIGHT V1, 40+ ms S IN I/aVL/V4/V5/V6] ABNORMAL ECG Compared to ECG 12/29/2023 19:11:24 HEART RATE IS REDUCED, NO OTHER SIGNIFICANT CHANGE Electronically Signed On 01-31-2024 08:52:47 CDT by Juvenal Arechiga M.D.
[2024-01-30 13:25] LABS: Basophils Percent Auto 0.3 % (0.2-1.2); Eosinophils Absolute Auto 0.1 K/mm3 (0-0.3); Eosinophils Percent Auto 0.6 % (0-4.4); Hematocrit 36.7 % (37.0-47.0); Hemoglobin 10.7 g/dL (12.0-15.0); Immature Granulocyte Absolute 0.07 K/mm3 (0.00-0.031); Immature Granulocyte Percent A 0.6 % (0-0.5); Lymphocytes Absolute Auto 1.61 K/mm3 (0.9-3.2); Lymphocytes Percent Auto 14.3 % (18.3-44.2); Mean Corpuscular HGB Conc 29.2 g/dl (32-36); Mean Corpuscular Hemoglobin 28.5 pg (26-34); Mean Corpuscular Volume 97.6 fl (80-100); Mean Platelet Volume 9.7 fl (7.4-10.4); Monocytes Absolute Auto 0.7 K/mm3 (0.1-0.6); Neutrophils Absolute Auto 8.8 K/mm3 (1.3-6.7); Neutrophils Percent Auto 78.2 % (45.5-73.1); Platelet Count Result 177 k/mm3 (150-375); Red Blood Count 3.76 M/mm3 (4.2-5.4); Red Cell Distribution Width 16.5 % (11.5-14.5); White Blood Count 11.3 K/mm3 (4.5-10.0)
[2024-01-30 13:35] LABS: Lactic Acid Reflex 1.5 mmol/L (0.7-2.0)
[2024-01-30 13:41] LABS: Alanine Aminotransferase 26 U/L (6-35); Albumin Level 3.8 g/dL (3.5-5.1); Alkaline Phosphatase 100 U/L (38-126); Aspartate Amino Transferase 32 U/L (14-36); Bilirubin,Total 0.6 mg/dL (0.2-1.3); Blood Urea Nitrogen 22 mg/dL (7-17); Calcium 8.7 mg/dL (8.4-10.2); Carbon Dioxide > 40 mmol/L (22-30); Chloride 97 mmol/L (98-107); Estimated Glomerular Filt Rate 42; Glucose 98 mg/dL (65-110); Potassium 3.9 mmol/L (3.4-5.0); Sodium 144 mmol/L (137-145)
[2024-01-30 13:51] LABS: Anisocytosis 1+; Hypochromasia 1+; Platelet Estimate Adequate (Adequate); Schistocytes None Seen
--- NOTE | 2024-01-30 14:44 | ED_ITS ---
HPI - SOB/Dyspnea General Chief Complaint: Shortness of Breath/Dyspnea <Dracie Alvarez PA-C - Last Filed: 01/30/24 17:03> Stated Complaint: sob <Darcie Alvarez PA-C - Last Filed: 01/30/24 17:03> Time Seen by Provider: 01/30/24 14:07 <BERE Sun Last Filed: 01/30/24 17:03> Source: patient <BERE Sun Last Filed: 01/30/24 17:03> Mode of arrival: EMS <BERE Sun Last Filed: 01/30/24 17:03> Limitations: no limitations <BERE Sun Last Filed: 01/30/24 17:03> History of Present Illness HPI Narrative: This is a 89-year-old female all that presents to the emergency department for shortness of breath and generalized weakness. Reports history of COPD, chronically wears oxygen via nasal cannula. She has been more short of breath than usual today. She also feels very weak. She was not able to ambulate or care for herself today. Was recently discharged from rehab 8 days ago after being admitted to similar. Recently diagnosed with a PE. Reports a cough. Denies fevers. <Darcie Alvarez PA-C - Last Filed: 01/30/24 17:03> Related Data Home Medications: Home Medications Medication Instructions Recorded Confirmed atorvastatin 80 mg tablet 80 mg PO HS 03/04/22 01/30/24 memantine 5 mg tablet 5 mg PO Q12H 03/04/22 01/30/24 pramipexole 0.5 mg tablet (Mirapex) 0.5 mg PO HS 03/07/22 01/30/24 ferrous sulfate 325 mg (65 mg 325 mg PO Q48H 10/01/22 01/30/24 iron) tablet pregabalin 100 mg capsule 100 mg PO Q12H 10/01/22 01/30/24 albuterol sulfate 2.5 mg/3 mL 2.5 mg inhalation Q8H PRN wheezing 10/13/22 01/30/24 (0.083 %) solution for nebulization cholecalciferol (vitamin D3) 25 25 mcg PO DAILY 10/13/22 01/30/24 mcg (1,000 unit) capsule (Vitamin D3) citalopram 20 mg tablet 20 mg PO QHS 02/20/23 01/30/24 guaifenesin 600 mg tablet, 600 mg PO Q12HR PRN Congestion 09/01/23 01/30/24 extended release 12 hr (Mucus Relief ER) lidocaine 4 % topical patch 1 patch transdermal DAILY PRN Back 09/01/23 01/30/24 (Lidocaine Pain Relief) Pain aripiprazole 2 mg tablet 2 mg PO DAILY 09/17/23 01/30/24 bisacodyl 5 mg tablet,delayed 5 mg PO DAILY PRN constipation 09/17/23 01/30/24 release furosemide 20 mg tablet 20 mg PO DAILY 09/17/23 01/30/24 vit C 250 mg-vit E 90 mg-zinc 40 1 tablet PO DAILY 12/05/23 01/30/24 mg-copper 1 [id number] capsule (PreserVision AREDS-2) oxycodone 5 mg tablet 5 mg PO Q4H PRN Pain Rated 4-6 01/30/24 01/30/24 <Darcie Alvarez PA-C - Last Filed: 01/30/24 17:03> Allergies/Adverse Reactions: Allergies Allergy/AdvReac Type Severity Reaction Status Date / Time meperidine [From Demerol] Allergy Unknown Unknown Verified 01/30/24 15:17 rofecoxib [From Vioxx] Allergy Unknown Unknown Verified 12/29/23 19:06 zolpidem [From Ambien] Allergy Unknown Unknown Verified 01/30/24 15:17 chlorpromazine AdvReac Unknown Unknown Verified 01/30/24 15:17 [From Thorazine] diphenhydramine AdvReac Unknown Jittery Verified 01/30/24 16:49 [From Benadryl] <Darcie Alvarez PA-C - Last Filed: 01/30/24 17:03> Review of Systems Review of Systems: CONSTITUTIONAL: Reports chills. Denies fever CARDIOVASCULAR: Reports edema. Denies chest pain RESPIRATORY: Reports cough and dyspnea. NEUROLOGIC: Reports generalized weakness. <Darcie Alvarez PA-C - Last Filed: 01/30/24 17:03> All systems reviewed & are unremarkable except as noted in HPI and below <Darcie Alvarez PA-C - Last Filed: 01/30/24 17:03> [facility] Past Medical History Medical History: Medical History Chronic GERD Chronic obstructive pulmonary disease Chronic pain syndrome Chronic respiratory failure with hypoxia and hypercapnia Deep venous thrombosis Depression with anxiety Heart failure with preserved ejection fraction Hiatal hernia Obstructive sleep apnea Paroxysmal atrial fibrillation <Darcie Alvarez PA-C - Last Filed: 01/30/24 17:03> Surgical History Surgical History: Surgical History History of bladder repair surgery History of breast surgery History of cataract extraction History of cholecystectomy History of colonoscopy History of esophagogastroduodenoscopy History of foot surgery History of fusion of cervical spine History of hernia repair History of hysterectomy History of spinal surgery History of tonsillectomy <Darcie Alvarez PA-C - Last Filed: 01/30/24 17:03> Family History Family History: Family History Father Bladder cancer Mother Hypertension Depression Sibling Asthma Hypertension Depression Grandparent Hypertension Heart disease Cerebrovascular accident Grandparent Alcoholism Lung cancer <Darcie Alvarez PA-C - Last Filed: 01/30/24 17:03> Social History Social History: Social History Social History: Surrogate medical decision maker: Tyrone Bullard, karissa. Code status: Full code. Smoking packs per day: 1 Smoking cigarettes per day: 20.0 Years smoked: 20 Smoking pack-years: 20.00 Smoking status: Former smoker Tobacco type: cigarettes Second hand tobacco smoke exposure: No Alcohol intake: never Drinks per week: 1 Substance use: never Substance use type: does not use Other substance usage details: THC gummie PRN HS to help sleep Do You Feel Safe in your Home?: Yes Lack of Transportation: No Lack of Food: Never True Current Housing: I Have Housing Concerned About Future Housing: No Difficulty Paying Gas/Electric Bills: No Difficulty Paying for Meds: No Currently Unemployed: No Education: Don't Know Difficulty w/ Childcare or Family Care: No Additional living arrangements comments: with 3 children. Lives at [facility]. 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 Spiritual care concerns: No <Darcie Alvarez PA-C - Last Filed: 01/30/24 17:03> Exam Narrative: GENERAL: Well-appearing, well-nourished, and in no acute distress. HEAD: Normocephalic, atraumatic. EYES: EOMI. ENT: Nares clear, no rhinorrhea or epistaxis. Mucous membranes moist. Oropharynx without tonsillar hypertrophy exudate or other lesions. Bilateral TMs pearly phillip non-bulging NECK: Supple. No adenopathy or masses. CHEST: No respiratory distress. Rales in the bilateral lower lobes. No wheezes or rhonchi HEART: Regular rate and rhythm. No murmur heard. Normal peripheral pulses. EXTREMITIES: Normal range of motion. 1+ pitting edema to the bilateral lower extremities SKIN: Warm, dry, no rash. NEURO: No focal deficits. Alert and oriented x3. PSYCH: Normal mood and affect <Darcie Alvarez PA-C - Last Filed: 01/30/24 17:03> Course Course Emergency Course: Patient updated on workup and recommendation for admission <Darcie Alvarez PA-C - Last Filed: 01/30/24 17:03> MACHINE PACKAGE SEALER/PA Physician Supervision For this patient encounter, I reviewed the MACHINE PACKAGE SEALER or PA documentation, treatment plan, and medical decision making; and I had [id number] time with this patient. <Joseph Colindres MD - Last Filed: 01/30/24 18:25> Vital Signs Vital signs: Vital Signs Temperature 97.8 F 01/30/24 12:39 Pulse Rate 105 H 01/30/24 12:39 Respiratory Rate 16 01/30/24 12:39 Blood Pressure 90/64 L 01/30/24 12:39 Pulse Oximetry 92 01/30/24 12:39 Oxygen Delivery Nasal Cannula 01/30/24 12:39 Oxygen Flow Rate 4 01/30/24 12:39 Temperature 97.3 F L 01/30/24 16:37 Pulse Rate 89 01/30/24 17:30 Respiratory Rate 18 01/30/24 16:37 Blood Pressure 102/61 01/30/24 17:30 Pulse Oximetry 93 01/30/24 17:56 Oxygen Delivery Nasal Cannula 01/30/24 17:56 Oxygen Flow Rate 3 01/30/24 17:56 <Darcie Alvarez PA-C - Last Filed: 01/30/24 17:03> Vital Signs Temperature 97.8 F 01/30/24 12:39 Pulse Rate 105 H 01/30/24 12:39 Respiratory Rate 16 01/30/24 12:39 Blood Pressure 90/64 L 01/30/24 12:39 Pulse Oximetry 92 01/30/24 12:39 Oxygen Delivery Nasal Cannula 01/30/24 12:39 Oxygen Flow Rate 4 01/30/24 12:39 Temperature 97.3 F L 01/30/24 16:37 Pulse Rate 89 01/30/24 17:30 Respiratory Rate 18 01/30/24 16:37 Blood Pressure 102/61 01/30/24 17:30 Pulse Oximetry 93 01/30/24 17:56 Oxygen Delivery Nasal Cannula 01/30/24 17:56 Oxygen Flow Rate 3 01/30/24 17:56 <Joseph Colindres MD - Last Filed: 01/30/24 18:25> MDM - SOB/Dyspnea MDM Narrative Medical decision making narrative: patient presents to the emergency department for shortness of breath and generalized weakness. Patient had received a nebulizer treatment EN route. No notable wheezing upon arrival. She does have rales in the bilateral lower lobes. She is afebrile and nontoxic appearing. Mildly tachycardic upon arrival, this normalized without intervention. Blood pressure had been soft in the 90s to 100s, but stable. CBC with leukocytosis to 11.3. Metabolic panel appears stable. Influenza, RSV and COVID screens are negative. Chest x-ray with evidence of left lower lobe pneumonia. Spoke with hospitalist about patient and workup accepts admission Upon going up to the floor patient's pressure dropped into 70s systolic. She did respond to fluid bolus. Most recent blood pressure in the 90s systolic <Darcie Alvarez PA-C - Last Filed: 01/30/24 17:03> Differential Diagnosis Differential diagnosis: Likely acute exacerbation of chronic obstructive airways disease, congestive heart failure and community acquired pneumonia <Darcie Alvarez PA-C - Last Filed: 01/30/24 17:03> Lab Data Attestation: I reviewed the patient's lab results. <Darcie Alvarez PA-C - Last Filed: 01/30/24 17:03> Result diagrams: 01/30/24 13:19 01/30/24 13:19 <Darcie Alvarez PA-C - Last Filed: 01/30/24 17:03> Labs: Lab Results 01/30/24 01/30/24 Range/Units 13:19 14:21 WBC 11.3 H (4.5-10.0) K/mm3 RBC 3.76 L (4.2-5.4) M/mm3 Hgb 10.7 L (12.0-15.0) g/dL Hct 36.7 L (37.0-47.0) % MCV 97.6 (80-100) fl MCH 28.5 (26-34) pg MCHC 29.2 L (32-36) g/dl RDW 16.5 H (11.5-14.5) % Plt Count 177 (150-375) k/mm3 MPV 9.7 (7.4-10.4) fl Immature Gran % (Auto) 0.6 H (0-0.5) % Neut % (Auto) 78.2 H (45.5-73.1) % Lymph % (Auto) 14.3 L (18.3-44.2) % [place] % (Auto) 6.0 (2.6-8.5) % Eos % (Auto) 0.6 (0-4.4) % Baso % (Auto) 0.3 (0.2-1.2) % Lymph # (Auto) 1.61 (0.9-3.2) K/mm3 [place] # (Auto) 0.7 H (0.1-0.6) K/mm3 Eos # (Auto) 0.1 (0-0.3) K/mm3 Baso # (Auto) 0.0 (0.0-0.1) K/mm3 Abs Immat Gran (auto) 0.07 H (0.00-0.031) K/mm3 Absolute Neuts (auto) 8.8 H (1.3-6.7) K/mm3 Absolute Nucleated RBC 0.000 (0.0-0.012) K/mm3 Nucleated RBC % 0.0 (0.0-0.2) % Platelet Estimate Adequate (Adequate) Hypochromasia 1+ Anisocytosis 1+ Schistocytes None seen Sodium 144 (137-145) mmol/L Potassium 3.9 (3.4-5.0) mmol/L Chloride 97 L (98-107) mmol/L Carbon Dioxide > 40 H (22-30) mmol/L Anion Gap (4-12) mmol/L BUN 22 H (7-17) mg/dL Creatinine 1.20 H (0.7-1.0) mg/dL Estim Creat Clear Calc Not Reportable Estimated GFR 42 L (59 - ) Glucose 98 (65-110) mg/dL Lactic Acid 1.5 (0.7-2.0) mmol/L Calcium 8.7 (8.4-10.2) mg/dL Total Bilirubin 0.6 (0.2-1.3) mg/dL AST 32 (14-36) U/L ALT 26 (6-35) U/L Alkaline Phosphatase 100 (38-126) U/L NT-Pro-B Natriuret Pep 504 H (19.9-100) pg/mL Total Protein 7.0 (6.3-8.2) g/dL Albumin 3.8 (3.5-5.1) g/dL Influenza A (RT-PCR) Negative (Negative) Influenza B (RT-PCR) Negative (Negative) RSV (RT-PCR) Negative (Negative) SARS-CoV-2 RNA (RT-PCR) Negative (Negative) <Darcie Alvarez PA-C - Last Filed: 01/30/24 17:03> Lab Results 01/30/24 01/30/24 Range/Units 13:19 14:21 WBC 11.3 H (4.5-10.0) K/mm3 RBC 3.76 L (4.2-5.4) M/mm3 Hgb 10.7 L (12.0-15.0) g/dL Hct 36.7 L (37.0-47.0) % MCV 97.6 (80-100) fl MCH 28.5 (26-34) pg MCHC 29.2 L (32-36) g/dl RDW 16.5 H (11.5-14.5) % Plt Count 177 (150-375) k/mm3 MPV 9.7 (7.4-10.4) fl Immature Gran % (Auto) 0.6 H (0-0.5) % Neut % (Auto) 78.2 H (45.5-73.1) % Lymph % (Auto) 14.3 L (18.3-44.2) % [place] % (Auto) 6.0 (2.6-8.5) % Eos % (Auto) 0.6 (0-4.4) % Baso % (Auto) 0.3 (0.2-1.2) % Lymph # (Auto) 1.61 (0.9-3.2) K/mm3 [place] # (Auto) 0.7 H (0.1-0.6) K/mm3 Eos # (Auto) 0.1 (0-0.3) K/mm3 Baso # (Auto) 0.0 (0.0-0.1) K/mm3 Abs Immat Gran (auto) 0.07 H (0.00-0.031) K/mm3 Absolute Neuts (auto) 8.8 H (1.3-6.7) K/mm3 Absolute Nucleated RBC 0.000 (0.0-0.012) K/mm3 Nucleated RBC % 0.0 (0.0-0.2) % Platelet Estimate Adequate (Adequate) Hypochromasia 1+ Anisocytosis 1+ Schistocytes None seen Sodium 144 (137-145) mmol/L Potassium 3.9 (3.4-5.0) mmol/L Chloride 97 L (98-107) mmol/L Carbon Dioxide > 40 H (22-30) mmol/L Anion Gap (4-12) mmol/L BUN 22 H (7-17) mg/dL Creatinine 1.20 H (0.7-1.0) mg/dL Estim Creat Clear Calc Not Reportable Estimated GFR 42 L (59 - ) Glucose 98 (65-110) mg/dL Lactic Acid 1.5 (0.7-2.0) mmol/L Calcium 8.7 (8.4-10.2) mg/dL Total Bilirubin 0.6 (0.2-1.3) mg/dL AST 32 (14-36) U/L ALT 26 (6-35) U/L Alkaline Phosphatase 100 (38-126) U/L NT-Pro-B Natriuret Pep 504 H (19.9-100) pg/mL Total Protein 7.0 (6.3-8.2) g/dL Albumin 3.8 (3.5-5.1) g/dL Influenza A (RT-PCR) Negative (Negative) Influenza B (RT-PCR) Negative (Negative) RSV (RT-PCR) Negative (Negative) SARS-CoV-2 RNA (RT-PCR) Negative (Negative) <Joseph Colindres MD - Last Filed: 01/30/24 18:25> Imaging Data Radiologist's impression: ITS Impressions Chest X-Ray 01/30/24 13:32 Impression: 1: Left basilar airspace disease may represent atelectasis or pneumonia. <Darcie Alvarez PA-C - Last Filed: 01/30/24 17:03> ECG Data EKG #1: ECG completion date: 01/30/24 <Darcie Alvarez PA-C - Last Filed: 01/30/24 17:03> EKG Interpretation: normal rate, sinus rhythm, RBBB and other (baseline artifact) <Darcie Alvarez PA-C - Last Filed: 01/30/24 17:03> Critical Care Time Critical Care Time Critical Care Time: No <Darcie Alvarez PA-C - Last Filed: 01/30/24 17:03> Discharge Plan Discharge Clinical Impression: Pneumonia Qualifiers: Pneumonia type: due to unspecified organism Laterality: left Lung location: lower lobe of lung Qualified Code(s): J18.9 - Pneumonia, unspecified organism <Darcie Alvarez PA-C - Last Filed: 01/30/24 17:03> Patient Disposition: Still a Patient <Darcie Alvarez PA-C - Last Filed: 01/30/24 17:03> Condition: Stable <Darcie Alvarez PA-C - Last Filed: 01/30/24 17:03>
[2024-01-30 14:46] LABS: NT Pro B Type Natriuretic Pept 504 pg/mL (19.9-100)
[2024-01-30 15:05] LABS: Influenza A QL RT-PCR Negative (Negative); Influenza B QL RT-PCR Negative (Negative); RSV RNA, RT-PCR Negative (Negative); SARS-CoV-2 RNA PCR Negative (Negative)
--- NOTE | 2024-01-30 15:22 | PM.IMHP ---
H&P: HPI History of Present Illness Date/Time: 01/30/24 15:22 Chief Complaint: SOB Generalized weakness Narrative: Ms. Bullard is an 88-year-old female with PMHx: of COPD on home oxygen 2 L NC, chronic respiratory proximal atrial fibrillation on anticoagulation, diastolic heart failure, HTN, hyperlipidemia, obesity, depression and anxiety, benign tremors, anemia along with a neurocognitive disorder currently on Namenda presented to the emergency room today with an ongoing complaint of SOB and generalized weakness. Patient tells me she was recently discharged from a rehabilitation center after being admitted for similar complaint of ongoing weakness, she reports a history of pulmonary embolism. She denies any fever chills nausea vomiting, or chest pain at this time. ED workup revealed: patient presented with nebulizer treatment given by EMS, she was observed in assess to have rales in the bilateral lower lobes she was afebrile and nontoxic-appearing with mild tachycardia upon arrival hypotension was initially noted but stable, labs revealed leukocytosis WBC 11.3 her metabolic panel was stable her viral PCR was all negative CXR revealed evidence of left lower lobe PNA. Review of Systems Review of Systems: All systems reviewed & are unremarkable except as noted in HPI and below PMFSH Past Medical History Medical History Chronic GERD Chronic obstructive pulmonary disease Chronic pain syndrome Chronic respiratory failure with hypoxia and hypercapnia Deep venous thrombosis Depression with anxiety Heart failure with preserved ejection fraction Hiatal hernia Obstructive sleep apnea Paroxysmal atrial fibrillation Surgical History Surgical History History of bladder repair surgery History of breast surgery History of cataract extraction History of cholecystectomy History of colonoscopy History of esophagogastroduodenoscopy History of foot surgery History of fusion of cervical spine History of hernia repair History of hysterectomy History of spinal surgery History of tonsillectomy Family History Family History Father Bladder cancer Mother Hypertension Depression Sibling Asthma Hypertension Depression Grandparent Hypertension Heart disease Cerebrovascular accident Grandparent Alcoholism Lung cancer Social History Social History Social History: Surrogate medical decision maker: Tyrone Bullard, son. Code status: Full code. Smoking packs per day: 1 Smoking cigarettes per day: 20.0 Years smoked: 20 Smoking pack-years: 20.00 Smoking status: Former smoker Tobacco type: cigarettes Second hand tobacco smoke exposure: No Alcohol intake: never Drinks per week: 1 Substance use: never Substance use type: does not use Other substance usage details: THC gummie PRN HS to help sleep Do You Feel Safe in your Home?: Yes Lack of Transportation: No Lack of Food: Never True Current Housing: I Have Housing Concerned About Future Housing: No Difficulty Paying Gas/Electric Bills: No Difficulty Paying for Meds: No Currently Unemployed: No Education: Associate Degree Difficulty w/ Childcare or Family Care: No Additional living arrangements comments: with 3 children. Lives at [facility]. 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 Spiritual care concerns: No Meds Home Medications and Allergies Home Medications Medication Instructions Recorded Confirmed Type atorvastatin 80 mg tablet 80 mg PO HS 03/04/22 01/30/24 History memantine 5 mg tablet 5 mg PO Q12H 03/04/22 01/30/24 History pramipexole 0.5 mg tablet (Mirapex) 0.5 mg PO HS 03/07/22 01/30/24 History ferrous sulfate 325 mg (65 mg 325 mg PO Q48H 10/01/22 01/30/24 History iron) tablet pregabalin 100 mg capsule 100 mg PO Q12H 10/01/22 01/30/24 History albuterol sulfate 2.5 mg/3 mL 2.5 mg inhalation Q8H PRN wheezing 10/13/22 01/30/24 History (0.083 %) solution for nebulization cholecalciferol (vitamin D3) 25 25 mcg PO DAILY 10/13/22 01/30/24 History mcg (1,000 unit) capsule (Vitamin D3) citalopram 20 mg tablet 20 mg PO QHS 02/20/23 01/30/24 History fluticasone fur. 100 mcg-umeclid 1 inh inhalation DAILY #28 ea 03/02/23 01/30/24 Rx 62.5 mcg-vilant 25 mcg inhalat.powder (Trelegy Ellipta) pantoprazole 40 mg tablet,delayed 40 mg PO QAM #30 tabs 03/02/23 01/30/24 Rx release guaifenesin 600 mg tablet, 600 mg PO Q12HR PRN Congestion 09/01/23 01/30/24 History extended release 12 hr (Mucus Relief ER) lidocaine 4 % topical patch 1 patch transdermal DAILY PRN Back 09/01/23 01/30/24 History (Lidocaine Pain Relief) Pain aripiprazole 2 mg tablet 2 mg PO DAILY 09/17/23 01/30/24 History bisacodyl 5 mg tablet,delayed 5 mg PO DAILY PRN constipation 09/17/23 01/30/24 History release furosemide 20 mg tablet 20 mg PO DAILY 09/17/23 01/30/24 History polyethylene glycol 3350 17 gram 17 g PO QAM PRN Constipation #30 ea 09/21/23 01/30/24 Rx oral powder packet (Miralax) docusate sodium 100 mg capsule 100 mg PO BID #60 caps 10/01/23 01/30/24 Rx mirtazapine 15 mg tablet (Remeron) 15 mg PO HS #30 tabs 10/01/23 01/30/24 Rx vit C 250 mg-vit E 90 mg-zinc 40 1 tablet PO DAILY 12/05/23 01/30/24 History mg-copper 1 [id number] capsule (PreserVision AREDS-2) amlodipine 5 mg tablet (Norvasc) 5 mg PO DAILY #90 tabs 01/06/24 01/30/24 Rx apixaban 5 mg tablet (Eliquis) 5 mg PO BID #60 tabs 01/22/24 01/30/24 Rx nitrofurantoin 100 mg PO DAILY #30 caps 01/22/24 01/30/24 Rx monohydrate/macrocrystals 100 mg capsule (Macrobid) trazodone 50 mg tablet 50 mg PO HS #30 tabs 01/22/24 01/30/24 Rx oxycodone 5 mg tablet 5 mg PO Q4H PRN Pain Rated 4-6 01/30/24 01/30/24 History Allergies Allergy/AdvReac Type Severity Reaction Status Date / Time meperidine [From Demerol] Allergy Unknown Unknown Verified 01/30/24 15:17 rofecoxib [From Vioxx] Allergy Unknown Unknown Verified 12/29/23 19:06 zolpidem [From Ambien] Allergy Unknown Unknown Verified 01/30/24 15:17 chlorpromazine AdvReac Unknown Unknown Verified 01/30/24 15:17 [From Thorazine] diphenhydramine AdvReac Unknown Jittery Verified 01/30/24 16:49 [From Benadryl] Vital Signs Vital Signs - 24 hr 01/30/24 12:39 01/30/24 13:04 01/30/24 13:06 Temperature 97.8 F Pulse Rate 105 H 103 H Respiratory Rate 16 Blood Pressure 90/64 L Pulse Oximetry 92 94 Oxygen Delivery Nasal Cannula Nasal Cannula Oxygen Flow Rate 4 4 01/30/24 13:20 01/30/24 13:43 01/30/24 13:04 Temperature Pulse Rate 101 H 94 Respiratory Rate 19 18 Blood Pressure 80/68 L 105/69 Pulse Oximetry 91 94 94 Oxygen Delivery Nasal Cannula Oxygen Flow Rate 4 01/30/24 13:48 01/30/24 14:06 01/30/24 14:27 Temperature Pulse Rate 95 Respiratory Rate 18 Blood Pressure 92/55 L Pulse Oximetry 94 92 95 Oxygen Delivery Nasal Cannula Nasal Cannula Oxygen Flow Rate 2 4 01/30/24 13:45 01/30/24 14:01 01/30/24 14:32 Temperature Pulse Rate 96 95 98 Respiratory Rate 12 13 19 Blood Pressure 106/74 105/73 100/56 L Pulse Oximetry 96 93 100 Oxygen Delivery Oxygen Flow Rate Exam Narrative: GENERAL: Well-appearing, well-nourished, and in no acute distress.resting in bed HEAD: Normocephalic, atraumatic. EYES: EOMI. ENT: Nares clear, no rhinorrhea or epistaxis. Mucous membranes moist. Oropharynx without tonsillar hypertrophy exudate or other lesions. Bilateral TMs pearly phillip non-bulging NECK: Supple. No adenopathy or masses. CHEST: No respiratory distress. Diminished in all rosas No wheezes or rhonchi HEART: Regular rate and rhythm. No murmur heard. Normal peripheral pulses. EXTREMITIES: Normal range of motion. 1+ pitting edema to the bilateral lower extremities SKIN: Warm, dry, no rash. NEURO: No focal deficits. Alert and oriented x3. PSYCH: Normal mood and affect H&P: Results Labs Labs: Short CBC 01/30/24 Range/Units 13:19 WBC 11.3 H (4.5-10.0) K/mm3 Hgb 10.7 L (12.0-15.0) g/dL Hct 36.7 L (37.0-47.0) % Plt Count 177 (150-375) k/mm3 BMP 01/30/24 13:19 Sodium 144 Potassium 3.9 Chloride 97 L Carbon Dioxide > 40 H BUN 22 H Creatinine 1.20 H Glucose 98 Calcium 8.7 Liver Function 01/30/24 Range/Units 13:19 Total Bilirubin 0.6 (0.2-1.3) mg/dL AST 32 (14-36) U/L ALT 26 (6-35) U/L Alkaline Phosphatase 100 (38-126) U/L Albumin 3.8 (3.5-5.1) g/dL Pulse Oximetry Attestation: I personally reviewed and interpreted this pulse oximetry as follows: Assessment and Plan Assessment and plan (1) Pneumonia: Qualifiers: Laterality: left Lung location: lower lobe of lung Pneumonia type: due to unspecified organism Qualified Code(s): J18.9 - Pneumonia, unspecified organism Code(s): J18.9 - Pneumonia, unspecified organism Status: Acute Assessment and Plan: -initiate supplemental O2 as needed to maintain SpO2 > 92% -check ABG p.r.n. if significant hypoxia or lethargy -check sputum culture pending -check urine streptococcal and Legionella -blood cultures pending -continue ceftriaxone 1 g IV Q 24 hours -continue azithromycin 500 mg IVP Q 24 hours -supportive therapy Bronchodilators. Chest x-ray PNA/Pulmonary Edema -incentive spirometry while awake. influenza/COVID/RSV negative Guaifenesin b.i.d. (2) Hypertension: Code(s): I10 - Essential (primary) hypertension Status: Acute Assessment and Plan: -hold home medication, b/p: has been hypotensive since arrival Continue to monitor vitals q.4 hours (3) Pulmonary edema: Code(s): J81.1 - Chronic pulmonary edema Status: Acute Assessment and Plan: -continue home medication -continue furosemide 20 mg p.o. daily (4) Weakness: Code(s): R53.1 - Weakness Status: Acute Assessment and Plan: Initiate fall precaution -PT/OT eval and treat -consider care coordination for ongoing increased weakness unable to care for self Plan Continue home medications: As ordered VTE Prophylaxis: Eliquis DIET: Heart healthy Anticipated hospital stay: > 2 days Code Status: DNR Hospitalist MIPS Advance Care Plan I have confirmed that the patient's Advanced Care Plan is present, code status is documented, or surrogate decision maker is listed in patient medical record.: Yes Medication Reconciliation I have utilized all available resources to obtain, update and review the patients current medications (includes all prescriptions, OTC, herbals, cannabis, and nutritional supplements).: Yes
--- NOTE | 2024-01-30 15:45 | PC.NURSE ---
pt granddaughter called at this time requesting an update
[2024-01-30] MEDS: AZITHROMYCIN 500 MG/NS 250 ML 500 MG/250 ML BAG 250 MG IVPB (15:48)
[2024-01-30] MEDS: SODIUM CHLORIDE 0.9% IV 500 ML 999 ML IV CONT (16:00)
--- NOTE | 2024-01-30 16:59 | ADMGEN ---
This patient, Jazmin Bullard, was admitted to [facility] Surg Room 306-01. Patient/family oriented to hospital policies and general routines including ID bracelet, bed and alarms, visiting hours, pain management, procedures, bathroom and other care routines, personal items, smoking policy, room service/diet, and visiting hours. Information on how to activate the Rapid Response Team has been discussed. Patient/Family are encouraged to report perceived risks to care and to ask questions if they do not understand what they are told or what they should do. Report from Sandra in ER.
[2024-01-30] MEDS: APIXABAN 5 MG TABLET PO (17:26)
[2024-01-30] MEDS: MEMANTINE 5 MG TABLET PO (20:33)
[2024-01-30] MEDS: oxyCODONE HCL (*CRX) 5 MG TAB IR PO (20:33)
[2024-01-30] MEDS: PREGABALIN (*CRX) 50 MG CAPSULE 100 MG PO (20:33)
[2024-01-30] MEDS: traZODone HCL 50 MG TABLET PO (20:34)
[2024-01-30] MEDS: MIRTAZAPINE 15 MG TABLET PO (20:34)
[2024-01-30] MEDS: NYSTATIN 100,000 UNITS/ML SUSP 5 ML ORAL.SUSP PO (20:34)
[2024-01-30] MEDS: PRAMIPEXOLE 0.5 MG TABLET PO (20:34)
[2024-01-30] MEDS: CITALOPRAM HYDROBROMIDE 20 MG TABLET PO (20:34)
[2024-01-30] MEDS: ATORVASTATIN 40 MG TABLET 80 MG PO (20:34)
[2024-01-30] MEDS: ALBUTEROL SULFATE NEB 2.5 MG/3 ML INH INHALATION (20:44)
[2024-01-31] VITALS (16 sets, daily range): BP systolic 92–138; BP diastolic 55–94; PULSE 71–90; RESP 16–91; TEMP 35.6–36.8; O2SAT 18–100
[2024-01-31] MEDS: oxyCODONE HCL (*CRX) 5 MG TAB IR PO ×3 (04:13→20:31)
[2024-01-31 06:25] LABS: Basophils Percent Auto 0.4 % (0.2-1.2); Eosinophils Absolute Auto 0.1 K/mm3 (0-0.3); Eosinophils Percent Auto 0.8 % (0-4.4); Hematocrit 33.8 % (37.0-47.0); Hemoglobin 9.4 g/dL (12.0-15.0); Immature Granulocyte Absolute 0.07 K/mm3 (0.00-0.031); Immature Granulocyte Percent A 0.8 % (0-0.5); Lymphocytes Percent Auto 22.4 % (18.3-44.2); Mean Corpuscular HGB Conc 27.8 g/dl (32-36); Mean Corpuscular Hemoglobin 27.9 pg (26-34); Mean Corpuscular Volume 100.3 fl (80-100); Mean Platelet Volume 10.2 fl (7.4-10.4); Monocytes Absolute Auto 0.6 K/mm3 (0.1-0.6); Monocytes Percent Auto 7.3 % (2.6-8.5); Neutrophils Absolute Auto 5.8 K/mm3 (1.3-6.7); Neutrophils Percent Auto 68.3 % (45.5-73.1); Platelet Count Result 150 k/mm3 (150-375); Red Blood Count 3.37 M/mm3 (4.2-5.4); Red Cell Distribution Width 16.8 % (11.5-14.5); White Blood Count 8.5 K/mm3 (4.5-10.0)
[2024-01-31 06:45] LABS: Alanine Aminotransferase 24 U/L (6-35); Albumin Level 3.2 g/dL (3.5-5.1); Alkaline Phosphatase 72 U/L (38-126); Anion Gap 3 mmol/L (4-12); Aspartate Amino Transferase 36 U/L (14-36); Bilirubin,Total 0.5 mg/dL (0.2-1.3); Blood Urea Nitrogen 21 mg/dL (7-17); Calcium 8.5 mg/dL (8.4-10.2); Carbon Dioxide 36 mmol/L (22-30); Chloride 102 mmol/L (98-107); Estimated Glomerular Filt Rate > 60; Glucose 110 mg/dL (65-110); Potassium 3.5 mmol/L (3.4-5.0); Sodium 141 mmol/L (137-145)
[2024-01-31 07:05] LABS: Hypochromasia 1+; Platelet Estimate Adequate (Adequate); Schistocytes None Seen
[2024-01-31 07:21] LABS: Procalcitonin 0.1 ng/mL
[2024-01-31] MEDS: ALBUTEROL SULFATE NEB 2.5 MG/3 ML INH INHALATION ×2 (07:21→21:10)
[2024-01-31] MEDS: FLUTICASONE/UMECLIDIN/VILANTER 100-62.5-25 MCG ELLIPTA 1 PUFF INHALATION (07:21)
--- NOTE | 2024-01-31 07:39 | P.PNIM_ITS ---
Progress Note: A&P Assessment and Plan (1) Pneumonia: Qualifiers: Laterality: left Lung location: lower lobe of lung Pneumonia type: due to unspecified organism Qualified Code(s): J18.9 - Pneumonia, unspecified organism Code(s): J18.9 - Pneumonia, unspecified organism Status: Acute Assessment and Plan: -initiate supplemental O2 as needed to maintain SpO2 > 92% -check ABG p.r.n. if significant hypoxia or lethargy -check sputum culture pending -check urine streptococcal and Legionella pending -blood cultures pending NGTD -continue ceftriaxone 1 g IV Q 24 hours -continue azithromycin 500 mg IVP Q 24 hours -supportive therapy Bronchodilators. Chest x-ray PNA -incentive spirometry while awake. influenza/COVID/RSV negative Guaifenesin b.i.d. (2) Hypertension: Code(s): I10 - Essential (primary) hypertension Status: Acute Assessment and Plan: -hold home medication, b/p: has been hypotensive since arrival Continue to monitor vitals q.4 hours (3) Pulmonary edema: Code(s): J81.1 - Chronic pulmonary edema Status: Acute Assessment and Plan: -continue home medication -continue furosemide 20 mg p.o. daily (4) Weakness: Code(s): R53.1 - Weakness Status: Acute Assessment and Plan: Initiate fall precaution -PT/OT eval and treat -consider care coordination for ongoing increased weakness unable to care for self could be related to infection and dehydration Plan Continue home medications: As ordered VTE Prophylaxis: Eliquis DIET: Heart healthy Anticipated hospital stay: > 2 days Code Status: DNR Time Spent With Patient Time with patient: Greater than 35 minutes Subjective Date/time seen: 01/31/24 07:39 Interval history: 88-year-old female with PMHx of COPD on home oxygen 2 L NC, chronic respiratory proximal atrial fibrillation on anticoagulation, diastolic heart failure, HTN, hyperlipidemia, depression and anxiety, benign tremors, anemia along with a neurocognitive disorder currently on Namenda presented to the emergency room pneumonia. Patient was hypotensive overnight, given 1 L bolus with improvement, patient complains of tremors being worse than normal, not on home medications for this and being uncomfortable in bed. Review of Systems Review of Systems: All systems reviewed & are unremarkable except as noted in HPI and below Constitutional: Constitutional: Reports no additional constitutional complaints Eyes: Eyes: Reports no additional eye complaints ENT: Reports as per HPI Cardiovascular: Cardiovascular: Reports no additional cardiovascular complaints Respiratory: Respiratory: Reports no additional respiratory complaints Gastrointestinal: Gastrointestinal: Reports no additional gastrointestinal complaints Genitourinary: Genitourinary: Reports no additional female genitourinary complaints Musculoskeletal: Comments: Tremors Integumentary/Breasts: Skin/Breast: Reports as per HPI Neurologic: Reports as per HPI Psychiatric: Psychiatric: Reports no additional psychiatric complaints Exam Narrative: GENERAL: Well-appearing, well-nourished, and in no acute distress.resting in bed HEAD: Normocephalic, atraumatic. EYES: EOMI. ENT: Nares clear, no rhinorrhea or epistaxis. Mucous membranes moist. Oropharynx without tonsillar hypertrophy exudate or other lesions. Bilateral TMs pearly phillip non-bulging NECK: Supple. No adenopathy or masses. CHEST: No respiratory distress. Diminished in all rosas No wheezes or rhonchi HEART: Regular rate and rhythm. No murmur heard. Normal peripheral pulses. EXTREMITIES: upper extremity tremor, Normal range of motion. 1+ pitting edema to the bilateral lower extremities SKIN: Warm, dry, no rash. NEURO: No focal deficits. Alert and oriented x3. PSYCH: Normal mood and affect Objective Data Vital Signs Vital Signs: Vital Signs - 24 hr 01/30/24 12:39 01/30/24 13:04 01/30/24 13:06 Temperature 97.8 F Pulse Rate 105 H 103 H Respiratory Rate 16 Blood Pressure 90/64 L Pulse Oximetry 92 94 Oxygen Delivery Nasal Cannula Nasal Cannula Oxygen Flow Rate 4 4 01/30/24 13:20 01/30/24 13:43 01/30/24 13:04 Temperature Pulse Rate 101 H 94 Respiratory Rate 19 18 Blood Pressure 80/68 L 105/69 Pulse Oximetry 91 94 94 Oxygen Delivery Nasal Cannula Oxygen Flow Rate 4 01/30/24 13:48 01/30/24 14:06 01/30/24 14:27 Temperature Pulse Rate 95 Respiratory Rate 18 Blood Pressure 92/55 L Pulse Oximetry 94 92 95 Oxygen Delivery Nasal Cannula Nasal Cannula Oxygen Flow Rate 2 4 01/30/24 13:45 01/30/24 14:01 01/30/24 14:32 Temperature Pulse Rate 96 95 98 Respiratory Rate 12 13 19 Blood Pressure 106/74 105/73 100/56 L Pulse Oximetry 96 93 100 Oxygen Delivery Oxygen Flow Rate 01/30/24 14:54 01/30/24 15:00 01/30/24 15:15 Temperature Pulse Rate 115 H 101 H 92 Respiratory Rate 14 23 H 13 Blood Pressure 78/63 L 96/48 L 92/63 L Pulse Oximetry 94 95 93 Oxygen Delivery Oxygen Flow Rate 01/30/24 15:41 01/30/24 15:48 01/30/24 16:00 Temperature 98.8 F 97.3 F L Pulse Rate 95 97 93 Respiratory Rate 18 16 18 Blood Pressure 76/61 L 86/58 L 94/57 L Pulse Oximetry 91 93 100 Oxygen Delivery Oxygen Flow Rate 01/30/24 17:14 01/30/24 17:30 01/30/24 17:32 Temperature Pulse Rate 89 Respiratory Rate Blood Pressure 102/61 Pulse Oximetry 95 94 Oxygen Delivery Nasal Cannula Nasal Cannula Oxygen Flow Rate 4 2 01/30/24 17:56 01/30/24 20:46 01/30/24 20:49 Temperature Pulse Rate 80 Respiratory Rate 20 Blood Pressure Pulse Oximetry 93 93 Oxygen Delivery Nasal Cannula Nasal Cannula Oxygen Flow Rate 3 3 01/30/24 21:00 01/30/24 21:14 01/30/24 20:35 Temperature 98.2 F Pulse Rate 78 77 80 Respiratory Rate 20 21 H 16 Blood Pressure 114/66 Pulse Oximetry 93 93 Oxygen Delivery Autopap Oxygen Flow Rate 01/31/24 00:40 01/31/24 04:00 01/31/24 00:00 Temperature 96.1 F L 97.9 F Pulse Rate 71 80 81 Respiratory Rate 16 16 Blood Pressure 92/55 L 138/84 Pulse Oximetry 96 96 Oxygen Delivery Oxygen Flow Rate 01/31/24 04:00 01/30/24 16:37 Temperature 97.3 F L Pulse Rate 82 93 Respiratory Rate 18 Blood Pressure 94/57 L Pulse Oximetry 100 Oxygen Delivery Oxygen Flow Rate Intake/Output Intake/Output: Intake & Output 01/28/24 01/29/24 01/30/24 01/31/24 23:59 23:59 23:59 23:59 Intake Total 1040 222 Output Total 20 Balance 1020 222 Meds/Results Medications: Active Medications Generic Name Dose Route Start Last Admin Trade Name Freq PRN Reason Stop Dose Admin Albuterol 2.5 mg 01/30/24 16:38 01/31/24 07:21 Albuterol Sulfate Neb 2.5 Mg/3 Ml Inh INHALATION 2.5 mg Q8H PRN Administration wheezing Amlodipine Besylate 5 mg 01/31/24 09:00 Amlodipine Besylate 5 Mg Tablet PO DAILY MASTER Apixaban 5 mg 01/30/24 17:00 01/30/24 17:26 Apixaban 5 Mg Tablet PO 5 mg BID MASTER Administration Aripiprazole 2 mg 01/31/24 09:00 Aripiprazole 2 Mg Tablet PO DAILY MASTER Atorvastatin Calcium 80 mg 01/30/24 21:00 01/30/24 20:34 Atorvastatin 40 Mg Tablet PO 80 mg HS MASTER Administration Bisacodyl 5 mg 01/30/24 16:38 Bisacodyl 5 Mg Tablet Ec PO DAILY PRN constipation Citalopram Hydrobromide 20 mg 01/30/24 21:00 01/30/24 20:34 Citalopram Hydrobromide 20 Mg Tablet PO 20 mg QHS [facility] Administration Docusate Sodium 100 mg 01/30/24 17:00 01/30/24 17:23 Docusate Sodium 100 Mg Capsule PO Not Given BID MASTER Ferrous Sulfate 325 mg 02/01/24 09:00 Ferrous Sulfate [address] PO Q48H [facility] Fluticasone/Umeclidinium/Vilanterol 1 puff 01/31/24 09:00 01/31/24 07:21 Fluticasone/Umeclidin/Vilanter 100-62.5-25 Mcg Ellipta INHALATION 1 puff DAILY MASTER Administration Furosemide 20 mg 01/31/24 09:00 Furosemide 20 Mg Tablet PO DAILY [facility] Guaifenesin 600 mg 01/30/24 16:38 Guaifenesin 12 Hr 600 Mg Tabcr PO Q12HR PRN Congestion Ceftriaxone Sodium 1 gm in 50 mls @ 100 mls/hr 01/31/24 16:00 Rocephin 1 Gm/Ns 50 Ml IVPB Q24H MASTER Azithromycin 500 mg in 250 mls @ 250 mls/hr 01/31/24 16:00 Zithromax IVPB Q24H MASTER Memantine 5 mg 01/30/24 21:00 01/30/24 20:33 Memantine 5 Mg Tablet PO 5 mg Q12HR MASTER Administration Mirtazapine 15 mg 01/30/24 21:00 01/30/24 20:34 Mirtazapine 15 Mg Tablet PO 15 mg HS MASTER Administration Nystatin 5 ml 01/30/24 17:00 01/30/24 20:34 Nystatin 100,000 Units/Ml Susp 5 Ml Oral.Susp PO 5 ml QID MASTER Administration Oxycodone HCl 5 mg 01/30/24 16:38 01/31/24 04:13 Oxycodone Hcl (*Crx) 5 Mg Tab Ir PO 5 mg Q4H PRN Administration Pain Rated 4-6 Pantoprazole Sodium 40 mg 01/31/24 09:00 Pantoprazole 40 Mg Tablet PO QAM MASTER Polyethylene Glycol 17 gm 01/30/24 16:38 Polyethylene Glycol 3350 17 Gm Powd.Pack PO QAM PRN Constipation Pramipexole Dihydrochloride 0.5 mg 01/30/24 21:00 01/30/24 20:34 Pramipexole 0.5 Mg Tablet PO 0.5 mg HS MASTER Administration Pregabalin 100 mg 01/30/24 21:00 01/30/24 20:33 Pregabalin (*Crx) 50 Mg Capsule PO 100 mg Q12HR MASTER Administration Trazodone HCl 50 mg 01/30/24 21:00 01/30/24 20:34 Trazodone Hcl 50 Mg Tablet PO 50 mg HS MASTER Administration Vitamin D 1,000 units 01/31/24 09:00 Cholecalciferol 1,000 Units Tablet PO DAILY [facility] Radiology Results: ITS Impressions Chest X-Ray 01/30/24 13:32 Impression: 1: Left basilar airspace disease may represent atelectasis or pneumonia. Labs Labs: Laboratory Results - last 24 hr 01/30/24 01/30/24 01/31/24 13:19 14:21 05:57 WBC 11.3 H 8.5 RBC 3.76 L 3.37 L Hgb 10.7 L 9.4 L Hct 36.7 L 33.8 L MCV 97.6 100.3 H MCH 28.5 27.9 MCHC 29.2 L 27.8 L RDW 16.5 H 16.8 H Plt Count 177 150 MPV 9.7 10.2 Immature Gran % (Auto) 0.6 H 0.8 H Neut % (Auto) 78.2 H 68.3 Lymph % (Auto) 14.3 L 22.4 [place] % (Auto) 6.0 7.3 Eos % (Auto) 0.6 0.8 Baso % (Auto) 0.3 0.4 Lymph # (Auto) 1.61 1.90 [place] # (Auto) 0.7 H 0.6 Eos # (Auto) 0.1 0.1 Baso # (Auto) 0.0 0.0 Abs Immat Gran (auto) 0.07 H 0.07 H Absolute Neuts (auto) 8.8 H 5.8 Absolute Nucleated RBC 0.000 0.000 Nucleated RBC % 0.0 0.0 Platelet Estimate Adequate Adequate Hypochromasia 1+ 1+ Anisocytosis 1+ Schistocytes None seen None seen Sodium 144 141 Potassium 3.9 3.5 Chloride 97 L 102 Carbon Dioxide > 40 H 36 H Anion Gap 3 L BUN 22 H 21 H Creatinine 1.20 H 0.80 Estim Creat Clear Calc Not Reportable Not Reportable Estimated GFR 42 L > 60 Glucose 98 110 Lactic Acid 1.5 Calcium 8.7 8.5 Total Bilirubin 0.6 0.5 AST 32 36 ALT 26 24 Alkaline Phosphatase 100 72 NT-Pro-B Natriuret Pep 504 H Total Protein 7.0 6.0 L Albumin 3.8 3.2 L Procalcitonin 0.1 Influenza A (RT-PCR) Negative Influenza B (RT-PCR) Negative RSV (RT-PCR) Negative SARS-CoV-2 RNA (RT-PCR) Negative Quality VTE Prophylaxis VTE prophylaxis: pharmacologic ordered Hospitalist [facility] Advance Care Plan I have confirmed that the patient's Advanced Care Plan is present, code status is documented, or surrogate decision maker is listed in patient medical record.: Yes Medication Reconciliation I have utilized all available resources to obtain, update and review the patients current medications (includes all prescriptions, OTC, herbals, cannabis, and nutritional supplements).: Yes
[2024-01-31] MEDS: ARIPiprazole 2 MG TABLET PO (08:31)
[2024-01-31] MEDS: MEMANTINE 5 MG TABLET PO ×2 (08:31→20:31)
[2024-01-31] MEDS: PREGABALIN (*CRX) 50 MG CAPSULE 100 MG PO ×2 (08:31→20:31)
[2024-01-31] MEDS: CHOLECALCIFEROL 1,000 UNITS TABLET 1000 UNITS PO (08:31)
[2024-01-31] MEDS: APIXABAN 5 MG TABLET PO ×2 (08:31→18:22)
[2024-01-31] MEDS: amLODIPine BESYLATE 5 MG TABLET PO (08:31)
[2024-01-31] MEDS: DOCUSATE SODIUM 100 MG CAPSULE PO (08:32)
[2024-01-31] MEDS: FUROSEMIDE 20 MG TABLET PO (08:32)
[2024-01-31] MEDS: PANTOPRAZOLE 40 MG TABLET PO (08:32)
[2024-01-31] MEDS: NYSTATIN 100,000 UNITS/ML SUSP 5 ML ORAL.SUSP PO ×2 (08:35→14:00)
[2024-01-31] MEDS: AZITHROMYCIN 500 MG/NS 250 ML 500 MG/250 ML BAG 250 MG IVPB (16:15)
[2024-01-31] MEDS: ATORVASTATIN 40 MG TABLET 80 MG PO (20:30)
[2024-01-31] MEDS: CITALOPRAM HYDROBROMIDE 20 MG TABLET PO (20:31)
[2024-01-31] MEDS: PRAMIPEXOLE 0.5 MG TABLET PO (20:31)
[2024-01-31] MEDS: MIRTAZAPINE 15 MG TABLET PO (20:31)
[2024-01-31] MEDS: traZODone HCL 50 MG TABLET PO (20:31)
[2024-01-31] MEDS: guaiFENesin 12 HR 600 MG TABCR PO (20:31)
[2024-02-01] VITALS (21 sets, daily range): BP systolic 97–149; BP diastolic 47–82; PULSE 78–98; RESP 16–24; TEMP 35.6–36.6; O2SAT 90–96
--- NOTE | 2024-02-01 | ECHOL_ITS ---
Patient Info Name: Jazmin Bullard Age: 89 years : 1935 Gender: Female Ht: 54 in Wt: 157 lbs BSA: 1.69 m2 HR: 84 bpm Heart Rhythm: Sinus Rhythm Technical Quality: Good Exam Date: 02/01/2024 12:19 PM Exam Location: Echo Lab Patient Status: Inpatient Admit Date: 01/30/2024 Staff Ordering Physician: Manuela Adkins APRN Record Tester: Catracho Tirado RDCS Attending Provider: Jethro Shrestha MD Referring Physician: Jed WATSON; Exam Type: CA echo limited Study Info Indications - acute on chronic chf Summary 1. Limited echocardiogram (no Doppler). 2. Moderate concentric LVH with vigorous systolic function. 3. Mildly sclerotic aortic valve without stenosis. Left Ventricle Left ventricular chamber dimension is normal. Left ventricular systolic function is normal, estimated at 65-70%. There is moderate concentric increased left ventricular wall thickness. Right Ventricle Right ventricular chamber dimension is normal. Left Atria Left atrial chamber dimension is mildly enlarged. Right Atria Right atrial chamber dimension is normal. Aortic Valve The aortic valve is trileaflet. There is mild aortic valve sclerosis. Pulmonic Valve The pulmonic valve is not well visualized. Mitral Valve The mitral valve has normal leaflets. Tricuspid Valve The tricuspid valve leaflets are normal. Pericardium/Pleural The pericardium appears normal. Aorta The aortic root size at the sinus of Valsalva is normal. Left Ventricular Outflow Tract Name Value Normal LVOT 2D LVOT Diameter 2.0 cm Aortic Valve Name Value Normal AV Regurgitation 2D LVOT Area 3.2 cm2 Ventricles Name Value Normal LV Dimensions 2D/MM IVS Diastolic Thickness (2D) 1.2 cm 0.6-1.0 LVID Diastole (2D) 4.2 cm 3.8-5.2 LVIW Diastolic Thickness (2D) 1.2 cm 0.6-0.9 LVID Systole (2D) 2.7 cm 2.2-3.5 LVOT Diameter 2.0 cm LV Mass (2D Cubed) 167.85 g 67.00-162.00 LV Mass Index (2D Cubed) 99 g/m2 43-95 Relative Wall Thickness (2D) 0.56 LV Fractional Shortening/Ejection Fraction 2D/MM LV Fractional Shortening (2D) 36 % 27-45 LV EF (2D Teicholz) 66 % 54-74 LV Diastolic Volume (4C MOD) 55 ml LV EF (4C MOD) 67 % LV Diastolic Volume (2C MOD) 55 ml LV EF (2C MOD) 50 % LV Diastolic Volume (BP MOD) 56 ml 46-106 LV Diastolic Volume Index (BP MOD) 33 ml/m2 29-61 LV Systolic Volume (BP MOD) 23 ml 14-42 LV Systolic Volume Index (BP MOD) 14 ml/m2 8-24 LV EF (BP MOD) 59 % 54-74 LV Diastolic Length (4C) 7.1 cm LV Systolic Length (4C) 4.9 cm LV Stroke Volume (4C MOD) 37 ml Atria Name Value Normal LA Dimensions LA Volume (4C A-L) 54 ml LA Volume (BP A-L) 47 ml RA Dimensions RA Area (4C) 14.4 cm2 <=18.0 Report Signatures
[2024-02-01] MEDS: WATER FOR IRRIGATION, STERILE 1,000 ML BOTTLE 1000 ML (01:07)
[2024-02-01 06:17] LABS: Basophils Percent Auto 0.5 % (0.2-1.2); Eosinophils Absolute Auto 0.1 K/mm3 (0-0.3); Eosinophils Percent Auto 0.9 % (0-4.4); Hematocrit 35.6 % (37.0-47.0); Hemoglobin 9.6 g/dL (12.0-15.0); Immature Granulocyte Absolute 0.06 K/mm3 (0.00-0.031); Immature Granulocyte Percent A 0.7 % (0-0.5); Lymphocytes Absolute Auto 1.46 K/mm3 (0.9-3.2); Lymphocytes Percent Auto 17.3 % (18.3-44.2); Mean Corpuscular Hemoglobin 28.4 pg (26-34); Mean Corpuscular Volume 105.3 fl (80-100); Mean Platelet Volume 10.7 fl (7.4-10.4); Monocytes Absolute Auto 0.5 K/mm3 (0.1-0.6); Monocytes Percent Auto 6.4 % (2.6-8.5); Neutrophils Absolute Auto 6.3 K/mm3 (1.3-6.7); Neutrophils Percent Auto 74.2 % (45.5-73.1); Platelet Count Result 146 k/mm3 (150-375); Red Blood Count 3.38 M/mm3 (4.2-5.4); Red Cell Distribution Width 16.8 % (11.5-14.5); White Blood Count 8.5 K/mm3 (4.5-10.0)
[2024-02-01 06:34] LABS: Alanine Aminotransferase 21 U/L (6-35); Alkaline Phosphatase 79 U/L (38-126); Anion Gap 2 mmol/L (4-12); Aspartate Amino Transferase 30 U/L (14-36); Bilirubin,Total 0.6 mg/dL (0.2-1.3); Blood Urea Nitrogen 21 mg/dL (7-17); Calcium 8.4 mg/dL (8.4-10.2); Carbon Dioxide 37 mmol/L (22-30); Chloride 102 mmol/L (98-107); Estimated Glomerular Filt Rate > 60; Glucose 91 mg/dL (65-110); Potassium 3.6 mmol/L (3.4-5.0); Sodium 141 mmol/L (137-145)
--- NOTE | 2024-02-01 07:52 | P.PNIM_ITS ---
Progress Note: A&P Assessment and Plan (1) Pneumonia: Qualifiers: Laterality: left Lung location: lower lobe of lung Pneumonia type: due to unspecified organism Qualified Code(s): J18.9 - Pneumonia, unspecified organism Code(s): J18.9 - Pneumonia, unspecified organism Status: Acute Assessment and Plan: -initiate supplemental O2 as needed to maintain SpO2 > 92% -check ABG p.r.n. if significant hypoxia or lethargy -check sputum culture pending -check urine streptococcal and Legionella pending -blood cultures pending NGTD -continue ceftriaxone 1 g IV Q 24 hours -continue azithromycin 500 mg IVP Q 24 hours Chest x-ray PNA -incentive spirometry while awake. influenza/COVID/RSV negative Guaifenesin b.i.d. (2) Hypertension: Code(s): I10 - Essential (primary) hypertension Status: Acute Assessment and Plan: -hold home medication, b/p: has been hypotensive since arrival Continue to monitor vitals q.4 hours (3) Pulmonary edema: Code(s): J81.1 - Chronic pulmonary edema Status: Acute Assessment and Plan: -continue home medication -continue furosemide 20 mg p.o. daily (4) Acute exacerbation of chronic obstructive airways disease: Code(s): J44.1 - Chronic obstructive pulmonary disease with (acute) exacerbation Status: Acute Assessment and Plan: Pulmonology consulted inhaled trilogy to nebulized DuoNebs q.6 hours and nebulized budesonide 500 mcg q.12 hours. add guaifenesin 1200 mg p.o. b.i.d.. Cornet flutter valve q.4 hours while awake. alpha 1 anti trypsin genotype on 02/01 (5) Weakness: Code(s): R53.1 - Weakness Status: Acute Assessment and Plan: Initiate fall precaution -PT/OT eval and treat -consider care coordination for ongoing increased weakness unable to care for self could be related to infection and dehydration Plan Continue home medications: As ordered VTE Prophylaxis: Eliquis DIET: Heart healthy Anticipated hospital stay: > 2 days Code Status: DNR Time Spent With Patient Time with patient: Greater than 35 minutes Subjective Date/time seen: 02/01/24 07:52 Interval history: 88-year-old female with PMHx of COPD on home oxygen 2 L NC, chronic respiratory proximal atrial fibrillation on anticoagulation, diastolic heart failure, HTN, hyperlipidemia, depression and anxiety, benign tremors, anemia along with a neurocognitive disorder currently on Namenda presented to the emergency room pneumonia. Echo shows Left ventricular systolic function is hyperdynamic, estimated at >70% . The left ventricular diastolic function is grade I diastolic dysfunction. Left atrial chamber dimension is severely enlarged. Right atrial chamber dimension is severely enlarged. There is mild to moderate tricuspid valve regurgitation. Estimated pulmonary arterial systolic pressure is 66 mmHg. patient had a Echo on 10/28/23 which did not show Right atrial chamber dimension is severely enlarged or pulmonary arterial systolic pressure is 66 mmHg. Cardiology consult to with recommendations for continued medical management for CHF and pulmonology recommendations trilogy to nebulized DuoNebs q.6 hours and nebulized, budesonide 500 mcg q.12 hours. Patient also has difficulty expectorating will add guaifenesin 1200 mg p.o. b.i.d., Cornet flutter valve q.4 hours while awake and alpha 1 anti trypsin genotype on 02/01. Patient's Lasix held this morning due to hypotension, no lower extremity edema. Review of Systems Review of Systems: All systems reviewed & are unremarkable except as noted in HPI and below Constitutional: Constitutional: Reports no additional constitutional complaints Eyes: Eyes: Reports no additional eye complaints ENT: Reports as per HPI Cardiovascular: Cardiovascular: Reports no additional cardiovascular complaints Respiratory: Respiratory: Reports no additional respiratory complaints Gastrointestinal: Gastrointestinal: Reports no additional gastrointestinal complaints Genitourinary: Genitourinary: Reports no additional female genitourinary complaints Integumentary/Breasts: Skin/Breast: Reports as per HPI Neurologic: Reports as per HPI Psychiatric: Psychiatric: Reports no additional psychiatric complaints Exam Narrative: GENERAL: Well-appearing, well-nourished, and in no acute distress.resting in bed HEAD: Normocephalic, atraumatic. EYES: EOMI. ENT: Nares clear, no rhinorrhea or epistaxis. Mucous membranes moist. Oropharynx without tonsillar hypertrophy exudate or other lesions. Bilateral TMs pearly phillip non-bulging NECK: Supple. No adenopathy or masses. CHEST: No respiratory distress. Diminished in all rosas No wheezes or rhonchi HEART: Regular rate and rhythm. No murmur heard. Normal peripheral pulses. EXTREMITIES: upper extremity tremor, Normal range of motion. SKIN: Warm, dry, no rash. NEURO: No focal deficits. Alert and oriented x3. PSYCH: Normal mood and affect Objective Data Vital Signs Vital Signs: Vital Signs - 24 hr 01/31/24 08:00 01/31/24 08:02 01/31/24 11:55 Temperature 97.0 F L Pulse Rate 83 89 Respiratory Rate 18 Blood Pressure 101/55 L Pulse Oximetry 91 Oxygen Delivery Nasal Cannula Oxygen Flow Rate 4 01/31/24 12:03 01/31/24 12:00 01/31/24 14:30 Temperature 97.1 F L Pulse Rate 90 75 Respiratory Rate 18 Blood Pressure 110/94 H Pulse Oximetry 90 Oxygen Delivery Nasal Cannula Oxygen Flow Rate 3 01/31/24 16:00 01/31/24 08:00 01/31/24 08:00 Temperature 97.8 F 97.8 F Pulse Rate 89 82 Respiratory Rate 91 H 18 Blood Pressure 133/80 95/65 L Pulse Oximetry 18 L 94 90 Oxygen Delivery Nasal Cannula Oxygen Flow Rate 3 01/31/24 18:00 01/31/24 18:00 01/31/24 16:03 Temperature Pulse Rate 79 Respiratory Rate Blood Pressure 105/69 117/79 Pulse Oximetry Oxygen Delivery Oxygen Flow Rate 01/31/24 20:00 01/31/24 21:10 01/31/24 21:10 Temperature 98.3 F Pulse Rate 88 83 Respiratory Rate 18 20 Blood Pressure 130/79 Pulse Oximetry 100 95 Oxygen Delivery Oxygen Flow Rate 3 01/31/24 21:19 01/31/24 20:00 01/31/24 20:00 Temperature Pulse Rate 80 88 Respiratory Rate 20 Blood Pressure Pulse Oximetry 95 Oxygen Delivery Nasal Cannula Oxygen Flow Rate 3 01/31/24 21:35 02/01/24 00:00 02/01/24 00:00 Temperature 97.8 F Pulse Rate 84 82 Respiratory Rate 19 18 Blood Pressure 100/69 Pulse Oximetry 95 93 Oxygen Delivery Autopap Oxygen Flow Rate 02/01/24 03:47 02/01/24 04:00 Temperature 97.9 F Pulse Rate 80 85 Respiratory Rate 16 Blood Pressure 116/67 Pulse Oximetry 94 Oxygen Delivery Oxygen Flow Rate Intake/Output Intake/Output: Intake & Output 01/29/24 01/30/24 01/31/24 02/01/24 23:59 23:59 23:59 23:59 Intake Total 1040 942 250 Output Total 20 Balance 1020 942 250 Meds/Results Medications: Active Medications Generic Name Dose Route Start Last Admin Trade Name Freq PRN Reason Stop Dose Admin Acetaminophen 650 mg 01/31/24 12:16 Acetaminophen 325 Mg Tablet PO Q4H PRN Pain Albuterol 2.5 mg 01/30/24 16:38 01/31/24 21:10 Albuterol Sulfate Neb 2.5 Mg/3 Ml Inh INHALATION 2.5 mg Q8H PRN Administration wheezing Amlodipine Besylate 5 mg 01/31/24 09:00 01/31/24 08:31 Amlodipine Besylate 5 Mg Tablet PO 5 mg DAILY MASTER Administration Apixaban 5 mg 01/30/24 17:00 01/31/24 18:22 Apixaban 5 Mg Tablet PO 5 mg BID MASTER Administration Aripiprazole 2 mg 01/31/24 09:00 01/31/24 08:31 Aripiprazole 2 Mg Tablet PO 2 mg DAILY MASTER Administration Atorvastatin Calcium 80 mg 01/30/24 21:00 01/31/24 20:30 Atorvastatin 40 Mg Tablet PO 80 mg HS MASTER Administration Bisacodyl 5 mg 01/30/24 16:38 Bisacodyl 5 Mg Tablet Ec PO DAILY PRN constipation Citalopram Hydrobromide 20 mg 01/30/24 21:00 01/31/24 20:31 Citalopram Hydrobromide 20 Mg Tablet PO 20 mg QHS MASTER Administration Docusate Sodium 100 mg 01/30/24 17:00 01/31/24 18:22 Docusate Sodium 100 Mg Capsule PO Not Given BID [facility] Ferrous Sulfate 325 mg 02/01/24 09:00 Ferrous Sulfate [address] PO Q48H [facility] Fluticasone/Umeclidinium/Vilanterol 1 puff 01/31/24 09:00 01/31/24 07:21 Fluticasone/Umeclidin/Vilanter 100-62.5-25 Mcg Ellipta INHALATION 1 puff DAILY MASTER Administration Furosemide 20 mg 01/31/24 09:00 01/31/24 08:32 Furosemide 20 Mg Tablet PO 20 mg DAILY MASTER Administration Guaifenesin 600 mg 01/30/24 16:38 01/31/24 20:31 Guaifenesin 12 Hr 600 Mg Tabcr PO 600 mg Q12HR PRN Administration Congestion Ceftriaxone Sodium 1 gm in 50 mls @ 100 mls/hr 01/31/24 16:00 01/31/24 16:15 Rocephin 1 Gm/Ns 50 Ml IVPB 100 mls/hr Q24H MASTER Administration Azithromycin 500 mg in 250 mls @ 250 mls/hr 01/31/24 16:00 01/31/24 16:15 Zithromax IVPB 250 mls/hr Q24H MASTER Administration Memantine 5 mg 01/30/24 21:00 01/31/24 20:31 Memantine 5 Mg Tablet PO 5 mg Q12HR MASTER Administration Mirtazapine 15 mg 01/30/24 21:00 01/31/24 20:31 Mirtazapine 15 Mg Tablet PO 15 mg HS MASTER Administration Nystatin 5 ml 01/30/24 17:00 01/31/24 20:33 Nystatin 100,000 Units/Ml Susp 5 Ml Oral.Susp PO Not Given QID MASTER Oxycodone HCl 5 mg 01/30/24 16:38 01/31/24 20:31 Oxycodone Hcl (*Crx) 5 Mg Tab Ir PO 5 mg Q4H PRN Administration Pain Rated 4-6 Pantoprazole Sodium 40 mg 01/31/24 09:00 01/31/24 08:32 Pantoprazole 40 Mg Tablet PO 40 mg QAM MASTER Administration Polyethylene Glycol 17 gm 01/30/24 16:38 Polyethylene Glycol 3350 17 Gm Powd.Pack PO QAM PRN Constipation Pramipexole Dihydrochloride 0.5 mg 01/30/24 21:00 01/31/24 20:31 Pramipexole 0.5 Mg Tablet PO 0.5 mg HS MASTER Administration Pregabalin 100 mg 01/30/24 21:00 01/31/24 20:31 Pregabalin (*Crx) 50 Mg Capsule PO 100 mg Q12HR MASTER Administration Trazodone HCl 50 mg 01/30/24 21:00 01/31/24 20:31 Trazodone Hcl 50 Mg Tablet PO 50 mg HS MASTER Administration Vitamin D 1,000 units 01/31/24 09:00 01/31/24 08:31 Cholecalciferol 1,000 Units Tablet PO 1,000 units DAILY MASTER Administration Radiology Results: ITS Impressions Chest X-Ray 01/30/24 13:32 Impression: 1: Left basilar airspace disease may represent atelectasis or pneumonia. Labs Labs: Laboratory Results - last 24 hr 02/01/24 05:49 Sodium 141 Potassium 3.6 Chloride 102 Carbon Dioxide 37 H Anion Gap 2 L BUN 21 H Creatinine 0.80 Estim Creat Clear Calc Not Reportable Estimated GFR > 60 Glucose 91 Calcium 8.4 Total Bilirubin 0.6 AST 30 ALT 21 Alkaline Phosphatase 79 Total Protein 6.0 L Albumin 3.0 L Quality VTE Prophylaxis VTE prophylaxis: pharmacologic ordered Hospitalist MIPS Advance Care Plan I have confirmed that the patient's Advanced Care Plan is present, code status is documented, or surrogate decision maker is listed in patient medical record.: Yes Medication Reconciliation I have utilized all available resources to obtain, update and review the patients current medications (includes all prescriptions, OTC, herbals, cannabis, and nutritional supplements).: Yes
[2024-02-01 08:06] LABS: Anisocytosis 1+; Platelet Estimate Slightly Decreased (Adequate); Polychromasia 1+; Schistocytes None Seen
[2024-02-01] MEDS: ALBUTEROL SULFATE NEB 2.5 MG/3 ML INH INHALATION (08:18)
[2024-02-01] MEDS: FLUTICASONE/UMECLIDIN/VILANTER 100-62.5-25 MCG ELLIPTA 1 PUFF INHALATION (08:27)
--- NOTE | 2024-02-01 09:01 | P.CONPL_ITS ---
Assessment and Plan Assessment and plan (1) COPD (chronic obstructive pulmonary disease): Code(s): J44.9 - Chronic obstructive pulmonary disease, unspecified Status: Acute Assessment and Plan: Regarding her COPD: 35 pack year tobacco, quit 8-10 years ago, chronic hypoxemic respiratory failure wearing 1 L at rest, 2 L with activity and 2 L sleep. Chronic hypercarbic respiratory failure on noninvasive ventilation with the AVAPS AE mode and 2 L bleed in. previously followed at [facility] Last office visit note 02/18/2023. Severe COPD per PFT in 2016. she was not interested in pulmonary rehabilitation. She is current on all her vaccines. Continue trilogy 100, albuterol inhaler nebulized rescue. 3 L with activity, 1 L at rest and 2 L at night. Noncompliant with CPAP and uninterested in restudy or trouble shooting. 02/01/24: patient has a few end-expiratory expiratory wheezes today. She has no increase in her phlegm production she does have worsening dyspnea on exertion. Plan: I will change the patient from her inhaled trilogy to nebulized DuoNebs q.6 hours and nebulized budesonide 500 mcg q.12 hours. Patient also has difficulty expectorating and I will add guaifenesin 1200 mg p.o. b.i.d.. I will add a Cornet flutter valve q.4 hours while awake. I will send an alpha 1 anti trypsin genotype on 02/01. Discussed with Manuela Adkins, will follow with you. (2) Pneumonia: Qualifiers: Laterality: left Lung location: lower lobe of lung Pneumonia type: due to unspecified organism Qualified Code(s): J18.9 - Pneumonia, unspecified organism Code(s): J18.9 - Pneumonia, unspecified organism Status: Acute Assessment and Plan: Discharged from [facility] on 12/10/2019 for status post vancomycin and cefepime for pneumonia. Discharged on Augmentin. Readmitted 12/28 with PE and treated for pneumonia with cefepime and vanco. Also treated for COPD exace rbation with Solu-Medrol and DuoNebs. Transition to azithromycin. Discharged to rehabilitation center and then to assisted living at [facility] on no antibiotics on 01/22/2024. currently the patient was readmitted with weakness of the arms and legs and worsening shortness of breath. She has persistent cough that is unchanged from 12/29/2023 with no increased phlegm production or chest pain. Her admission white blood cell count was 11.3. She has been afebrile. She has been treated with ceftriaxone and azithromycin since 01/30/2024. Review of her imaging on 01/30/2024 demonstrates small lung volumes with left lower lobe infiltrate and compared to 01/17/2024 the right lower lobe and left lower infiltrates are improved. Blood cultures are negative. COVID influenza and RSV RT PCR study are negative. Plan: I will continue ceftriaxone and azithromycin. I will send a MRSA nasal swab. I will send a extended respiratory pathogen panel. I will order CTA of the chest to reassess infiltrates. Overall my clinical suspicion for bacterial pneumonia is low and I will not broaden her antibiotic coverage at this time. Urine Legionella, urine pneumococcal studies pending. I will send a mycoplasma IgM on 02/02/2024. (3) Chronic respiratory failure with hypoxia and hypercapnia: Code(s): J96.11 - Chronic respiratory failure with hypoxia; J96.12 - Chronic respiratory failure with hypercapnia Status: Acute Assessment and Plan: Patient with COPD and history of chronic hypercarbic and hypoxemic respiratory failure and prescribed noninvasive ventilation with the AVAPS AE mode with respiratory rate auto, tidal volume 350, EPAP 5, maximum EPAP 10. Minimum pressure support 5, maximum pressure support 10 With 2 L bleed in on 10/30/2023. Patient tells me she has been wearing a fullface mask with this new machine at [facility]. Download from [facility] from 01/03/2024 through 02/01/2024. Patient is on noninvasive ventilator with the Belinda machine with a T TV-VAPS-AE mode. rate is auto. Tidal volume 350. EPAP minimum 5, EPAP maximum 10, pressure support minimum 5, pressure support maximum 12. % of days with usage greater than or equal to 4 hours is 67%. Average usage on days used is 5 hours and 50 minutes. Weekly average respiratory rate median 12-16. Weekly average tidal volume median 350-400. Weekly average EPAP 7.5. Weekly average IPAP 15.5-16. Weekly average unintentional leak 2.5-25 weekly average minute ventilation 4-6. I interpret this download as suboptimal compliance, low tidal volume and acceptable leak. Plan: I will place the patient on a hospital noninvasive ventilator with the AVAPS mode with a rate of 14, tidal volume 450, EPAP 7, minimal inspiratory pressure 8, maximal inspiratory pressure 25, I-time of 1, rise of 3 and 32% FiO2. I will obtain an ABG prior to removal and an overnight oximetry. (4) Pulmonary embolism: Code(s): I26.99 - Other pulmonary embolism without acute cor pulmonale Status: Acute Assessment and Plan: Patient with a CT angiogram of the chest on 12/29/2023 with small non filling defects in the left lower lobe. Patient placed on Eliquis. Plan: I will repeat a CT angiogram of the chest today to reassess filling defects in left lower lobe and to assess for new pulmonary emboli. Continue Eliquis 5 p.o. b.i.d. (5) Pulmonary hypertension: Code(s): I27.20 - Pulmonary hypertension, unspecified Status: Acute Assessment and Plan: Regarding her pulmonary hypertension. Patient had an echocardiogram on 06/12/2023 with LVEF 82%, diastolic dysfunction, mild aortic regurgitation, mild mitral regurgitation, mild tricuspid regurgitation with an RVSP of 45. echocardiogram on 10/28/2023 with LVEF greater than 70, grade 1 diastolic dysfunction, RV size and function were normal, right atrial size was normal. PASP 67. Echocardiogram 12/30/2023: LVEF greater than 70, grade 1 diastolic dysfunction, right ventricular moderately enlarged with normal function. Severe left atrial enlargement. Severely enlarged right atrial enlargement, PASP 66. Etiology of pulmonary hypertension and includes: Severe COPD with chronic hypercarbic and hypoxemic respiratory failure, pulmonary embolism, untreated obstructive sleep apnea and diastolic dysfunction. plan: Repeat echocardiogram ordered. Continue treatment for COPD, pulmonary embolism, obstructive sleep apnea, AFIB and diastolic dysfunction. History of Present Illness History of Present Illness Consult date: 02/01/24 Chief complaint: Pneumonia Narrative: 02/01/2024: This is a new pulmonary consult for pulmonary hypertension. 89-year-old with a history of hypertension, hyperlipidemia, obesity, atrial fibrillation on anticoagulation, tremor, COPD on home oxygen 1 L at rest, 2 L with activity and 2 L on her home noninvasive ventilator with AVAPS AE mode. Regarding her COPD: 35 pack year tobacco, quit 8-10 years ago, previously foll owed at [facility] Last office visit note 02/18/2023. Severe COPD per PFT in 2016. she was not interested in pulmonary rehabilitation. She is current on all her vaccines. Continue trilogy 100, albuterol inhaler nebulized rescue. 3 L with activity, 1 L at rest and 2 L at night. Noncompliant with CPAP and uninterested in restudy or trouble shooting. Regarding her pulmonary hypertension. Patient had an echocardiogram on 06/12/2023 with LVEF 82%, diastolic dysfunction, mild aortic regurgitation, mild mitral regurgitation, mild tricuspid regurgitation with an RVSP of 45. echocardiogram on 10/28/2023 with LVEF greater than 70, grade 1 diastolic dysfunction, RV size and function were normal, right atrial size was normal. PASP 67. Echocardiogram 12/30/2023: LVEF greater than 70, grade 1 diastolic dysfunction, right ventricular moderately enlarged with normal function. Severe left atrial enlargement. Severely enlarged right atrial enlargement, PASP 66. Patient previously seen by Pulmonary for COPD with chronic hypercarbic and hypoxemic respiratory failure and VBG on 2 L nasal cannula 7.30/78/ less than 27. Prescribed a home noninvasive ventilator with the AVAPS AE mode on . 35 pack year tobacco use, quit 8-10 years ago. Maintained on trilog 10/30/2023: Default settings; height is 1.38 m, wt 68.8 kg. BMI 35.9 kg/m2 Primary settings : AVAPS-AE with Target Tidal Volume TV 350 ml, RR( intentionally left blank) Max pressure 20; PS Min 5; PS Max 10; EPAP Min 5; EPAP Max 10. Bleed in 2 L/min with sleep This form was faxed to [facility] [phone] to Bhaskar who worked with us to provide equipment for this patient. Plan is for this to be set up at [facility] 10/29 today, with discharge planned for today. Recently admitted for weakness and treated for aspiration pneumonia, CT angiogram of the chest showed small nonocclusive filling defects left lower lobe with low clot burden. She was treated with antibiotics. She had a swallow study with laryngeal penetration and aspiration with continued speech therapy and on 01/21/2024 she was tolerated thin ice water after doing She was discharged to rehabilitation center And discharged back to [facility] on 01/22/2024. Patient stated she was doing well on 01/28/2024 but on 01/28 she was weak. On 01/30/24 she could not walk because she had weak arms and legs and she had worsening shortness of breath. She presented to the emergency department. Patient states her persistent cough since her admission on 12/29/2023 was unchanged. She denied fever, chills, chest pain, hemoptysis. She has minimal production of phlegm. In the emergency department her white blood cell count was 11.3 with 0.6% eosinophils, creatinine was 1.2, BNP was 504, COVID influenza and RSV RT PCR studies were negative. Chest x-ray on 01/29 demonstrated left lower lobe infiltrate with improved right and left lower lobe infiltrates from 01/17/2024. She was admitted to the hospital and treated for pneumonia with ceftriaxone and azithromycin. 01/31/24: she was hypotensive required 1 L IV fluids. She was placed on auto PAP at night. Her procalcitonin was 0.1. 02/01/24: Today is she tells me that her dyspnea on exertion is the same since admission, she states that her cough and phlegm production or unchanged since admission she denies any lower extremity swelling or chest pain. She is afebrile. White blood cell count 8.5, creatinine 0.8. DATA: 12/30/23: Summary 1. Left ventricular chamber dimension is normal. 2. Left ventricular systolic function is hyperdynamic, estimated at >70%. 3. There is mildly increased left ventricular wall thickness. 4. The left ventricular diastolic function is grade I diastolic dysfunction. 5. Right ventricular chamber dimension is moderately enlarged. 6. Right ventricular systolic function is normal. 7. Left atrial chamber dimension is severely enlarged. 8. Right atrial chamber dimension is severely enlarged. 9. There is mild to moderate tricuspid valve regurgitation. 10. Estimated pulmonary arterial systolic pressure is 66 mmHg. Right Ventricle Right ventricular chamber dimension is moderately enlarged. Right ventricular systolic function is normal. Right Atria Right atrial chamber dimension is severely enlarged. Atrial Septum Intact interatrial septum visualized by color flow imaging. 12/29/23: EXAMINATION: CTA chest PE protocol INDICATION: hypoxia, SHERON COMPARISON: X-ray chest, same date; CT chest 03/03/2022; CT abdomen pelvis 09/02/2023. FINDINGS: Lung parenchyma and airways: Segmental consolidation in the dependent portions of the bilateral lower lobes and right middle lobe. Patent airways. Pleura: Small left pleural fluid collection. Thoracic inlet, axillae and chest wall: Unremarkable. Thoracic aorta: Mild thoracic aortic ectasia. Moderate atherosclerotic calcifications. No dissection. Mediastinum: Moderate enlarged subcarinal and bilateral hilar lymph nodes. Hiatal hernia. Patulous esophagus. Heart and pericardium: Left ventricular hypertrophy. RV/LV ratio 1.5. Coronary artery calcifications: Moderate. Upper abdomen: Multiple hepatic hypodensities, likely representing cysts. Multiple stable pancreatic cysts. Multiple stable renal cysts. Bones: No acute osseous finding. Multiple stable compression deformities in the thoracolumbar junction. Vertebroplasty cement at T12 Pulmonary arteries: Study quality: Adequate. Small nonocclusive filling defects in several left lower lobe segmental arteries. IMPRESSION: Small nonocclusive filling defects in several left lower lobe segmental arteries. Low clot burden. The RV/LV ratio is 1.5 but this may be confounded by left ventricular hypertrophy. No septal bowing or significant hepatic vein reflux. Segmental right middle lobe and bilateral lower lobe dependent consolidations, concerning for pneumonia. Aspiration should be considered in the differential. Small left pleural effusion. Subcarinal and bilateral hilar lymphadenopathy. 10/28/23: Echo Summary 1. Left ventricular chamber dimension is normal. 2. Left ventricular systolic function is hyperdynamic, estimated at >70%. 3. There is mildly increased left ventricular wall thickness. 4. The left ventricular diastolic function is grade I diastolic dysfunction. 5. Right ventricular systolic function is normal. 6. Left atrial chamber dimension is severely enlarged. 7. There is mild mitral valve regurgitation. 8. There is mild tricuspid valve regurgitation. Right Ventricle Right ventricular chamber dimension is normal. Right ventricular systolic function is normal. Right Atria Right atrial chamber dimension is normal. Review of Systems Constitutional: Constitutional: Reports no additional constitutional complaints Eyes: Eyes: Reports no additional eye complaints ENT: Reports system reviewed and no additional complaints, except as documented Cardiovascular: Cardiovascular: Reports no additional cardiovascular complaints Respiratory: Respiratory: Reports no additional respiratory complaints Gastrointestinal: Gastrointestinal: Reports no additional gastrointestinal complaints Musculoskeletal: Musculoskeletal: Reports no additional musculoskeletal complaints Neurologic: Reports system reviewed and no additional complaints, except as d ocumented Psychiatric: Psychiatric: Reports no additional psychiatric complaints Endocrine: Endocrine: Reports no additional endocrine complaints Hematologic/Lymphatic: Hematologic/Lymphatic: Reports no additional hematologic/lymphatic complaints Allergic/Immunologic: Allergic/Immunologic: Reports no additional allergic/immunologic complaints [facility] Past Medical History Medical History Chronic GERD Chronic obstructive pulmonary disease Chronic pain syndrome Chronic respiratory failure with hypoxia and hypercapnia Deep venous thrombosis Depression with anxiety Heart failure with preserved ejection fraction Hiatal hernia Obstructive sleep apnea Paroxysmal atrial fibrillation Surgical History Surgical History History of bladder repair surgery History of breast surgery History of cataract extraction History of cholecystectomy History of colonoscopy History of esophagogastroduodenoscopy History of foot surgery History of fusion of cervical spine History of hernia repair History of hysterectomy History of spinal surgery History of tonsillectomy Family History Family History Father Bladder cancer Mother Hypertension Depression Sibling Asthma Hypertension Depression Grandparent Hypertension Heart disease Cerebrovascular accident Grandparent Alcoholism Lung cancer Social History Social History Social History: Surrogate medical decision maker: Tyrone Bullard, son. Code status: Full code. Smoking packs per day: 1 Smoking cigarettes per day: 20.0 Years smoked: 20 Smoking pack-years: 20.00 Smoking status: Former smoker Tobacco type: cigarettes Second hand tobacco smoke exposure: No Alcohol intake: never Drinks per week: 1 Substance use: never Substance use type: does not use Other substance usage details: THC gummie PRN HS to help sleep Do You Feel Safe in your Home?: Yes Lack of Transportation: No Lack of Food: Never True Current Housing: I Have Housing Concerned About Future Housing: No Difficulty Paying Gas/Electric Bills: No Difficulty Paying for Meds: No Currently Unemployed: No Education: Don't Know Difficulty w/ Childcare or Family Care: No Additional living arrangements comments: with 3 children. Lives at [facility]. 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 Spiritual care concerns: No Meds Home Medications and Allergies Home Medications Medication Instructions Recorded Confirmed Type atorvastatin 80 mg tablet 80 mg PO HS 03/04/22 01/30/24 History memantine 5 mg tablet 5 mg PO Q12H 03/04/22 01/30/24 History pramipexole 0.5 mg tablet (Mirapex) 0.5 mg PO HS 03/07/22 01/30/24 History ferrous sulfate 325 mg (65 mg 325 mg PO Q48H 10/01/22 01/30/24 History iron) tablet pregabalin 100 mg capsule 100 mg PO Q12H 10/01/22 01/30/24 History albuterol sulfate 2.5 mg/3 mL 2.5 mg inhalation Q8H PRN wheezing 10/13/22 01/30/24 History (0.083 %) solution for nebulization cholecalciferol (vitamin D3) 25 25 mcg PO DAILY 10/13/22 01/30/24 History mcg (1,000 unit) capsule (Vitamin D3) citalopram 20 mg tablet 20 mg PO QHS 02/20/23 01/30/24 History fluticasone fur. 100 mcg-umeclid 1 inh inhalation DAILY #28 ea 03/02/23 01/30/24 Rx 62.5 mcg-vilant 25 mcg inhalat.powder (Trelegy Ellipta) pantoprazole 40 mg tablet,delayed 40 mg PO QAM #30 tabs 03/02/23 01/30/24 Rx release guaifenesin 600 mg tablet, 600 mg PO Q12HR PRN Congestion 09/01/23 01/30/24 History extended release 12 hr (Mucus Relief ER) lidocaine 4 % topical patch 1 patch transdermal DAILY PRN Back 09/01/23 01/30/24 History (Lidocaine Pain Relief) Pain aripiprazole 2 mg tablet 2 mg PO DAILY 09/17/23 01/30/24 History bisacodyl 5 mg tablet,delayed 5 mg PO DAILY PRN constipation 09/17/23 01/30/24 History release furosemide 20 mg tablet 20 mg PO DAILY 09/17/23 01/30/24 History polyethylene glycol 3350 17 gram 17 g PO QAM PRN Constipation #30 ea 09/21/23 01/30/24 Rx oral powder packet (Miralax) docusate sodium 100 mg capsule 100 mg PO BID #60 caps 10/01/23 01/30/24 Rx mirtazapine 15 mg tablet (Remeron) 15 mg PO HS #30 tabs 10/01/23 01/30/24 Rx vit C 250 mg-vit E 90 mg-zinc 40 1 tablet PO DAILY 12/05/23 01/30/24 History mg-copper 1 [id number] capsule (PreserVision AREDS-2) amlodipine 5 mg tablet (Norvasc) 5 mg PO DAILY #90 tabs 01/06/24 01/30/24 Rx apixaban 5 mg tablet (Eliquis) 5 mg PO BID #60 tabs 01/22/24 01/30/24 Rx nitrofurantoin 100 mg PO DAILY #30 caps 01/22/24 01/30/24 Rx monohydrate/macrocrystals 100 mg capsule (Macrobid) trazodone 50 mg tablet 50 mg PO HS #30 tabs 01/22/24 01/30/24 Rx oxycodone 5 mg tablet 5 mg PO Q4H PRN Pain Rated 4-6 01/30/24 01/30/24 History Allergies Allergy/AdvReac Type Severity Reaction Status Date / Time meperidine [From Demerol] Allergy Unknown Unknown Verified 01/30/24 15:17 rofecoxib [From Vioxx] Allergy Unknown Unknown Verified 12/29/23 19:06 zolpidem [From Ambien] Allergy Unknown Unknown Verified 01/30/24 15:17 chlorpromazine AdvReac Unknown Unknown Verified 01/30/24 15:17 [From Thorazine] diphenhydramine AdvReac Unknown Jittery Verified 01/30/24 16:49 [From Benadryl] Vital Signs Vital Signs - 24 hr 01/31/24 11:55 01/31/24 12:03 01/31/24 12:00 Temperature 36.2 C L Pulse Rate 90 75 Respiratory Rate 18 Blood Pressure 110/94 H Pulse Oximetry 90 Oxygen Delivery Nasal Cannula Oxygen Flow Rate 4 Fraction of Inspired Oxygen 01/31/24 14:30 01/31/24 16:00 01/31/24 18:00 Temperature 36.6 C Pulse Rate 89 Respiratory Rate 91 H Blood Pressure 133/80 105/69 Pulse Oximetry 18 L Oxygen Delivery Nasal Cannula Oxygen Flow Rate 3 Fraction of Inspired Oxygen 01/31/24 18:00 01/31/24 16:03 01/31/24 20:00 Temperature 36.8 C Pulse Rate 79 88 Respiratory Rate 18 Blood Pressure 117/79 130/79 Pulse Oximetry 100 Oxygen Delivery Oxygen Flow Rate Fraction of Inspired Oxygen 01/31/24 21:10 01/31/24 21:10 01/31/24 21:19 Temperature Pulse Rate 83 80 Respiratory Rate 20 20 Blood Pressure Pulse Oximetry 95 Oxygen Delivery Oxygen Flow Rate 3 Fraction of Inspired Oxygen 01/31/24 20:00 01/31/24 20:00 01/31/24 21:35 Temperature Pulse Rate 88 Respiratory Rate 19 Blood Pressure Pulse Oximetry 95 95 Oxygen Delivery Nasal Cannula Autopap Oxygen Flow Rate 3 Fraction of Inspired Oxygen 02/01/24 00:00 02/01/24 00:00 02/01/24 03:47 Temperature 36.6 C 36.6 C Pulse Rate 84 82 80 Respiratory Rate 18 16 Blood Pressure 100/69 116/67 Pulse Oximetry 93 94 Oxygen Delivery Oxygen Flow Rate Fraction of Inspired Oxygen 02/01/24 04:00 02/01/24 08:18 02/01/24 08:18 Temperature Pulse Rate 85 87 Respiratory Rate 20 Blood Pressure Pulse Oximetry 90 Oxygen Delivery Nasal Cannula Oxygen Flow Rate 3 Fraction of Inspired Oxygen 32 02/01/24 08:27 02/01/24 08:03 Temperature Pulse Rate 83 98 Respiratory Rate 20 Blood Pressure Pulse Oximetry Oxygen Delivery Oxygen Flow Rate Fraction of Inspired Oxygen Exam Const: General: cooperative, healthy appearing and comfortable Orientation/consciousness: oriented to person, oriented to place and oriented to time HENMT: Head: normal to inspection Ears: hearing grossly normal bilaterally Eyes: General: appearance normal, both eyes and all related structures Neck: Neck: normal visual inspection Chest: Chest palpation & inspection: normal inspection of the chest Resp: Effort & Inspection: normal respiratory effort and able to speak in complete sentences Auscultation: crackles, no rales, no rhonchi, wheezes and lung sounds not diminished Other: Bilateral crackles and a few end expiratory wheezes. Cardio: Jugular venous distension: no JVD GI: Inspection: normal to inspection GI Palp: No abdominal tenderness Skin: General skin exam: normal color Neuro: General: oriented to person, oriented to place and oriented to time Extrem: General: normal to inspection Psych: Appearance: grossly normal Results Laboratory Findings 02/01/24 05:49 02/01/24 05:49 Abnormal lab findings: Abnormal Labs 01/30/24 01/31/24 02/01/24 13:19 05:57 05:49 WBC 11.3 H RBC 3.76 L 3.37 L 3.38 L Hgb 10.7 L 9.4 L 9.6 L Hct 36.7 L 33.8 L 35.6 L MCV 100.3 H 105.3 H MCHC 29.2 L 27.8 L 27.0 L RDW 16.5 H 16.8 H 16.8 H Plt Count 146 L MPV 10.7 H Immature Gran % (Auto) 0.6 H 0.8 H 0.7 H Neut % (Auto) 78.2 H 74.2 H Lymph % (Auto) 14.3 L 17.3 L Cavalier # (Auto) 0.7 H Abs Immat Gran (auto) 0.07 H 0.07 H 0.06 H Absolute Neuts (auto) 8.8 H Chloride 97 L Carbon Dioxide > 40 H 36 H 37 H Anion Gap 3 L 2 L BUN 22 H 21 H 21 H Creatinine 1.20 H Estimated GFR 42 L NT-Pro-B Natriuret Pep 504 H Total Protein 6.0 L 6.0 L Albumin 3.2 L 3.0 L Diagnostic Findings Additional studies: ITS Impressions Chest X-Ray 01/30/24 13:32 Impression: 1: Left basilar airspace disease may represent atelectasis or pneumonia. Chest X-Ray 02/01/24 09:45 Impression: Probable developing bibasilar and interstitial pulmonary edema, versus possibly pneumonia. Correlate clinically. Discoid right mid lung atelectasis.
--- NOTE | 2024-02-01 09:35 | PM.CNCAR ---
Assessment and Plan Assessment and plan (1) Right atrial enlargement: Code(s): I51.7 - Cardiomegaly Status: Acute Assessment and Plan: Her right atrial enlargement is not surprising given her underlying lung disease including pulmonary embolism history as well as oxygen dependent COPD. This all as resulted an RV and RA enlargement as well as pulmonary hypertension. This is also not surprising given her known history of atrial fibrillation which can also be brought on by atrial enlargement. No specific treatment for right atrial enlargement. Is recommended continue to treat her underlying lung disease per pulmonology and heart failure with preserved ejection fraction. (2) Chronic respiratory failure with hypoxia and hypercapnia: Code(s): J96.11 - Chronic respiratory failure with hypoxia; J96.12 - Chronic respiratory failure with hypercapnia Status: Acute Assessment and Plan: Per pulmonology (3) Chronic obstructive pulmonary disease with acute exacerbation: Code(s): J44.1 - Chronic obstructive pulmonary disease with (acute) exacerbation Status: Acute Assessment and Plan: Per pulmonology (4) Paroxysmal atrial fibrillation: Code(s): I48.0 - Paroxysmal atrial fibrillation Status: Acute Assessment and Plan: Continue Eliquis for anticoagulation (5) Hypertension: Code(s): I10 - Essential (primary) hypertension Status: Acute Assessment and Plan: At goal Plan No further cardiac recommendations at this point History of Present Illness History of Present Illness Consult date/time: 02/01/24 09:35 Requesting physician: Manuela Adkins APRN Consult reason: Other (Right atrial enlargement) Reason For Visit: Pneumonia Narrative: Reason for consultation: Right atrial enlargement Date of service 02/01/2024 Requesting provider: Manuela Adkins History patient is an 89-year-old female has a history of paroxysmal atrial fibrillation. An echocardiogram was performed because of shortness of breath. She was noted to have right atrial enlargement cardiology consultation has been requested. Patient has underlying COPD and is oxygen dependent. She has RV enlargement also and a history of pulmonary embolism. Patient denies any chest pain, syncope, presyncope, paroxysmal nocturnal dyspnea, orthopnea, edema or palpitations. No bleeding issues. Still has baseline shortness of breath. She also has generalized weakness and increased tremor activity which also brought her to the hospital. Review of Systems Review of Systems: All systems reviewed & are unremarkable except as noted in HPI and below Constitutional: Constitutional: Denies body ache(s) Eyes: Eyes: Denies blurry vision ENT: Reports Normal hearing present Cardiovascular: Cardiovascular: Denies chest pain Respiratory: Respiratory: Reports dyspnea Gastrointestinal: Gastrointestinal: Denies abdominal pain Genitourinary: Genitourinary: Denies hematuria Musculoskeletal: Musculoskeletal: Denies joint swelling Integumentary/Breasts: Skin/Breast: Denies erythema Neurologic: Denies Abnormal speech present Psychiatric: Psychiatric: Denies anxiety Endocrine: Endocrine: Denies excessive sweating Hematologic/Lymphatic: Hematologic/Lymphatic: Denies easy bleeding Allergic/Immunologic: Allergic/Immunologic: Denies GI upset with certain foods PMFSH Past Medical History Medical History Chronic GERD Chronic obstructive pulmonary disease Chronic pain syndrome Chronic respiratory failure with hypoxia and hypercapnia Deep venous thrombosis Depression with anxiety Heart failure with preserved ejection fraction Hiatal hernia Obstructive sleep apnea Paroxysmal atrial fibrillation Surgical History Surgical History History of bladder repair surgery History of breast surgery History of cataract extraction History of cholecystectomy History of colonoscopy History of esophagogastroduodenoscopy History of foot surgery History of fusion of cervical spine History of hernia repair History of hysterectomy History of spinal surgery History of tonsillectomy Family History Family History Father Bladder cancer Mother Hypertension Depression Sibling Asthma Hypertension Depression Grandparent Hypertension Heart disease Cerebrovascular accident Grandparent Alcoholism Lung cancer Social History Social History Social History: Surrogate medical decision maker: Tyrone Bullard, son. Code status: Full code. Smoking packs per day: 1 Smoking cigarettes per day: 20.0 Years smoked: 20 Smoking pack-years: 20.00 Smoking status: Former smoker Tobacco type: cigarettes Second hand tobacco smoke exposure: No Alcohol intake: never Drinks per week: 1 Substance use: never Substance use type: does not use Other substance usage details: THC gummie PRN HS to help sleep Do You Feel Safe in your Home?: Yes Lack of Transportation: No Lack of Food: Never True Current Housing: I Have Housing Concerned About Future Housing: No Difficulty Paying Gas/Electric Bills: No Difficulty Paying for Meds: No Currently Unemployed: No Education: Don't Know Difficulty w/ Childcare or Family Care: No Additional living arrangements comments: with 3 children. Lives at [facility]. 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 Spiritual care concerns: No Meds Home Medications and Allergies Home Medications Medication Instructions Recorded Confirmed Type atorvastatin 80 mg tablet 80 mg PO HS 03/04/22 01/30/24 History memantine 5 mg tablet 5 mg PO Q12H 03/04/22 01/30/24 History pramipexole 0.5 mg tablet (Mirapex) 0.5 mg PO HS 03/07/22 01/30/24 History ferrous sulfate 325 mg (65 mg 325 mg PO Q48H 10/01/22 01/30/24 History iron) tablet pregabalin 100 mg capsule 100 mg PO Q12H 10/01/22 01/30/24 History albuterol sulfate 2.5 mg/3 mL 2.5 mg inhalation Q8H PRN wheezing 10/13/22 01/30/24 History (0.083 %) solution for nebulization cholecalciferol (vitamin D3) 25 25 mcg PO DAILY 10/13/22 01/30/24 History mcg (1,000 unit) capsule (Vitamin D3) citalopram 20 mg tablet 20 mg PO QHS 02/20/23 01/30/24 History fluticasone fur. 100 mcg-umeclid 1 inh inhalation DAILY #28 ea 03/02/23 01/30/24 Rx 62.5 mcg-vilant 25 mcg inhalat.powder (Trelegy Ellipta) pantoprazole 40 mg tablet,delayed 40 mg PO QAM #30 tabs 03/02/23 01/30/24 Rx release guaifenesin 600 mg tablet, 600 mg PO Q12HR PRN Congestion 09/01/23 01/30/24 History extended release 12 hr (Mucus Relief ER) lidocaine 4 % topical patch 1 patch transdermal DAILY PRN Back 09/01/23 01/30/24 History (Lidocaine Pain Relief) Pain aripiprazole 2 mg tablet 2 mg PO DAILY 09/17/23 01/30/24 History bisacodyl 5 mg tablet,delayed 5 mg PO DAILY PRN constipation 09/17/23 01/30/24 History release furosemide 20 mg tablet 20 mg PO DAILY 09/17/23 01/30/24 History polyethylene glycol 3350 17 gram 17 g PO QAM PRN Constipation #30 ea 09/21/23 01/30/24 Rx oral powder packet (Miralax) docusate sodium 100 mg capsule 100 mg PO BID #60 caps 10/01/23 01/30/24 Rx mirtazapine 15 mg tablet (Remeron) 15 mg PO HS #30 tabs 10/01/23 01/30/24 Rx vit C 250 mg-vit E 90 mg-zinc 40 1 tablet PO DAILY 12/05/23 01/30/24 History mg-copper 1 [id number]-[id number]-qiaifb capsule (PreserVision AREDS-2) amlodipine 5 mg tablet (Norvasc) 5 mg PO DAILY #90 tabs 01/06/24 01/30/24 Rx apixaban 5 mg tablet (Eliquis) 5 mg PO BID #60 tabs 01/22/24 01/30/24 Rx nitrofurantoin 100 mg PO DAILY #30 caps 01/22/24 01/30/24 Rx monohydrate/macrocrystals 100 mg capsule (Macrobid) trazodone 50 mg tablet 50 mg PO HS #30 tabs 01/22/24 01/30/24 Rx oxycodone 5 mg tablet 5 mg PO Q4H PRN Pain Rated 4-6 01/30/24 01/30/24 History Allergies Allergy/AdvReac Type Severity Reaction Status Date / Time meperidine [From Demerol] Allergy Unknown Unknown Verified 01/30/24 15:17 rofecoxib [From Vioxx] Allergy Unknown Unknown Verified 12/29/23 19:06 zolpidem [From Ambien] Allergy Unknown Unknown Verified 01/30/24 15:17 chlorpromazine AdvReac Unknown Unknown Verified 01/30/24 15:17 [From Thorazine] diphenhydramine AdvReac Unknown Jittery Verified 01/30/24 16:49 [From Benadryl] Vital Signs Vital Signs - 24 hr 01/31/24 11:55 01/31/24 12:03 01/31/24 12:00 Temperature 36.2 C L Pulse Rate 90 75 Respiratory Rate 18 Blood Pressure 110/94 H Pulse Oximetry 90 Oxygen Delivery Nasal Cannula Oxygen Flow Rate 4 Fraction of Inspired Oxygen 01/31/24 14:30 01/31/24 16:00 01/31/24 18:00 Temperature 36.6 C Pulse Rate 89 Respiratory Rate 91 H Blood Pressure 133/80 105/69 Pulse Oximetry 18 L Oxygen Delivery Nasal Cannula Oxygen Flow Rate 3 Fraction of Inspired Oxygen 01/31/24 18:00 01/31/24 16:03 01/31/24 20:00 Temperature 36.8 C Pulse Rate 79 88 Respiratory Rate 18 Blood Pressure 117/79 130/79 Pulse Oximetry 100 Oxygen Delivery Oxygen Flow Rate Fraction of Inspired Oxygen 01/31/24 21:10 01/31/24 21:10 01/31/24 21:19 Temperature Pulse Rate 83 80 Respiratory Rate 20 20 Blood Pressure Pulse Oximetry 95 Oxygen Delivery Oxygen Flow Rate 3 Fraction of Inspired Oxygen 01/31/24 20:00 01/31/24 20:00 01/31/24 21:35 Temperature Pulse Rate 88 Respiratory Rate 19 Blood Pressure Pulse Oximetry 95 95 Oxygen Delivery Nasal Cannula Autopap Oxygen Flow Rate 3 Fraction of Inspired Oxygen 02/01/24 00:00 02/01/24 00:00 02/01/24 03:47 Temperature 36.6 C 36.6 C Pulse Rate 84 82 80 Respiratory Rate 18 16 Blood Pressure 100/69 116/67 Pulse Oximetry 93 94 Oxygen Delivery Oxygen Flow Rate Fraction of Inspired Oxygen 02/01/24 04:00 02/01/24 08:18 02/01/24 08:18 Temperature Pulse Rate 85 87 Respiratory Rate 20 Blood Pressure Pulse Oximetry 90 Oxygen Delivery Nasal Cannula Oxygen Flow Rate 3 Fraction of Inspired Oxygen 32 02/01/24 08:27 02/01/24 08:03 02/01/24 08:00 Temperature 35.6 C L Pulse Rate 83 98 83 Respiratory Rate 20 18 Blood Pressure 102/55 L Pulse Oximetry 91 Oxygen Delivery Oxygen Flow Rate Fraction of Inspired Oxygen Exam Narrative: Awake alert. Appears stated age Const: General: comfortable and no acute distress HENMT: Face/Nose/Sinus: Normal nares present Mouth: Yes moist mucous membranes Eyes: General: appearance normal, both eyes and all related structures Sclera: sclerae normal Neck: Neck: supple and no JVD Chest: Other: No reproducible chest wall pain to palpation Resp: Effort & Inspection: normal respiratory effort Auscultation: diminished lung sounds Cardio: Rate: regular rate Rhythm: regular rhythm Heart sounds: Murmur heart sound present GI: Inspection: non-distended GI Palp: Yes Soft to palpation Auscultation: normal bowel sounds Skin: General skin exam: normal color Neuro: Speech: normal speech Extrem: General: normal to inspection Psych: Mental Status: mental status grossly normal Affect: normal affect Results Labs and Meds 02/01/24 05:49 02/01/24 05:49 Lab results: Cardiac Enzymes 02/01/24 Range/Units 05:49 AST 30 (14-36) U/L CBC 02/01/24 Range/Units 05:49 WBC 8.5 (4.5-10.0) K/mm3 RBC 3.38 L (4.2-5.4) M/mm3 Hgb 9.6 L (12.0-15.0) g/dL Hct 35.6 L (37.0-47.0) % Plt Count 146 L (150-375) k/mm3 Lymph # (Auto) 1.46 (0.9-3.2) K/mm3 [place] # (Auto) 0.5 (0.1-0.6) K/mm3 Eos # (Auto) 0.1 (0-0.3) K/mm3 Baso # (Auto) 0.0 (0.0-0.1) K/mm3 Comprehensive Metabolic Panel 02/01/24 Range/Units 05:49 Sodium 141 (137-145) mmol/L Potassium 3.6 (3.4-5.0) mmol/L Chloride 102 (98-107) mmol/L Carbon Dioxide 37 H (22-30) mmol/L BUN 21 H (7-17) mg/dL Creatinine 0.80 (0.7-1.0) mg/dL Glucose 91 (65-110) mg/dL Calcium 8.4 (8.4-10.2) mg/dL AST 30 (14-36) U/L ALT 21 (6-35) U/L Alkaline Phosphatase 79 (38-126) U/L Total Protein 6.0 L (6.3-8.2) g/dL Albumin 3.0 L (3.5-5.1) g/dL Intake and Output 01/31/24 02/01/24 02/01/24 23:59 07:59 15:59 Intake Total 240 250 240 Balance 240 250 240 Intake: Oral 240 250 240 Other: # Unmeasured Voids 2 Number of Bowel Movements Today 0 Patient Weight 02/01/24 23:59 Weight 71.6 kg EKG is personally reviewed and independently interpreted showing sinus rhythm right bundle-branch block Echocardiogram:1. Left ventricular chamber dimension is normal. 2. Left ventricular systolic function is hyperdynamic, estimated at >70%. 3. There is mildly increased left ventricular wall thickness. 4. The left ventricular diastolic function is grade I diastolic dysfunction. 5. Right ventricular chamber dimension is moderately enlarged. 6. Right ventricular systolic function is normal. 7. Left atrial chamber dimension is severely enlarged. 8. Right atrial chamber dimension is severely enlarged. 9. There is mild to moderate tricuspid valve regurgitation. 10. Estimated pulmonary arterial systolic pressure is 66 mmHg.
[2024-02-01] MEDS: PREGABALIN (*CRX) 50 MG CAPSULE 100 MG PO ×2 (10:02→20:47)
[2024-02-01] MEDS: CHOLECALCIFEROL 1,000 UNITS TABLET 1000 UNITS PO (10:03)
[2024-02-01] MEDS: FERROUS SULFATE 325 MG TABLET DR PO (10:03)
[2024-02-01] MEDS: ARIPiprazole 2 MG TABLET PO (10:03)
[2024-02-01] MEDS: PANTOPRAZOLE 40 MG TABLET PO (10:03)
[2024-02-01] MEDS: APIXABAN 5 MG TABLET PO ×2 (10:03→16:35)
[2024-02-01] MEDS: DOCUSATE SODIUM 100 MG CAPSULE PO ×2 (10:09→16:35)
[2024-02-01] MEDS: MEMANTINE 5 MG TABLET PO ×2 (10:11→20:47)
[2024-02-01] MEDS: oxyCODONE HCL (*CRX) 5 MG TAB IR PO (10:12)
[2024-02-01 10:17] LABS: NT Pro B Type Natriuretic Pept 411 pg/mL (19.9-100)
[2024-02-01] MEDS: guaiFENesin 12 HR 600 MG TABCR 1200 MG PO ×2 (10:18→20:47)
[2024-02-01] MEDS: polyethylene glycoL 3350 17 GM POWD.PACK PO (10:18)
[2024-02-01 10:31] LABS: Procalcitonin 0.1 ng/mL
[2024-02-01 11:33] LABS: Free T4 Free Thyroxine 0.99 ng/mL (0.78-2.19)
--- NOTE | 2024-02-01 11:35 | PCOTNOTE ---
Patient out of the room at this time. Patient down having a scan done, Per RN. Will check back at later time.
[2024-02-01 12:14] LABS: MRSA (PCR) NOT DETECTED (NOT DETECTE)
[2024-02-01] MEDS: IPRATROPIUM 0.5 MG/ALBUTEROL SULFATE 2.5 MG AMPUL.NEB 3 ML NEBULIZE ×2 (13:57→21:45)
[2024-02-01] MEDS: AZITHROMYCIN 500 MG/NS 250 ML 500 MG/250 ML BAG 250 MG IVPB (15:14)
[2024-02-01] MEDS: CITALOPRAM HYDROBROMIDE 20 MG TABLET PO (20:47)
[2024-02-01] MEDS: PRAMIPEXOLE 0.5 MG TABLET PO (20:47)
[2024-02-01] MEDS: traZODone HCL 50 MG TABLET PO (20:47)
[2024-02-01] MEDS: MIRTAZAPINE 15 MG TABLET PO (20:47)
[2024-02-01] MEDS: ATORVASTATIN 40 MG TABLET 80 MG PO (20:47)
[2024-02-01] MEDS: BUDESONIDE RESPULE NEB 0.5 MG/2 ML AMP INHALATION (21:45)
[2024-02-02] VITALS (27 sets, daily range): BP systolic 68–130; BP diastolic 42–96; PULSE 64–96; RESP 15–24; TEMP 36.2–36.8; O2SAT 83–96
[2024-02-02] MEDS: oxyCODONE HCL (*CRX) 5 MG TAB IR PO ×3 (00:22→20:24)
--- NOTE | 2024-02-02 01:08 | PC.NURSE ---
Per speech therapist report, pt is to be on mildly thickened liquids diet as of 01/05/24 due to pt failing swallow study at this facility.
[2024-02-02 05:21] LABS: Alveolar/Arterial O2 Gradient 103.9 mmHg; Base Excess ABG 9.4 mEq/l (+/-2.0); Fractional Inspired Oxygen 32 %; Oxygen Content ABG 12.5 %vol (16.0-22.0); PO2 ABG 52.7 mmHg (80.0-100.0); PO2 FiO2 Ratio Arterial Blood 1.65 %; Total Hemoglobin 10.3 g/dL (12.0-18.0); pH ABG 7.388 (7.350-7.450)
[2024-02-02 05:28] LABS: PCO2 ABG 61.2 mmHg (35.0-45.0)
[2024-02-02 05:29] LABS: Oxygen Saturation ABG 85.9 % (95.0-100.0)
[2024-02-02 05:30] LABS: Modified Allen's Test Pass; Oxyhemoglobin 86.3 % THb (90.0-100.0); Site Drawn LEFT RADIAL
[2024-02-02 05:35] LABS: Device BIPAP
[2024-02-02] MEDS: IPRATROPIUM 0.5 MG/ALBUTEROL SULFATE 2.5 MG AMPUL.NEB 3 ML NEBULIZE ×4 (05:59→19:22)
[2024-02-02 06:12] LABS: Basophils Percent Auto 0.4 % (0.2-1.2); Eosinophils Absolute Auto 0.1 K/mm3 (0-0.3); Eosinophils Percent Auto 1.3 % (0-4.4); Hematocrit 30.8 % (37.0-47.0); Hemoglobin 8.8 g/dL (12.0-15.0); Immature Granulocyte Absolute 0.05 K/mm3 (0.00-0.031); Immature Granulocyte Percent A 0.6 % (0-0.5); Immature Platelet Fraction Pct 3.6 % (0.9-11.2); Lymphocytes Absolute Auto 1.48 K/mm3 (0.9-3.2); Mean Corpuscular HGB Conc 28.6 g/dl (32-36); Mean Corpuscular Hemoglobin 28.5 pg (26-34); Mean Corpuscular Volume 99.7 fl (80-100); Mean Platelet Volume 10.8 fl (7.4-10.4); Monocytes Absolute Auto 0.5 K/mm3 (0.1-0.6); Monocytes Percent Auto 6.9 % (2.6-8.5); Neutrophils Absolute Auto 5.6 K/mm3 (1.3-6.7); Neutrophils Percent Auto 71.8 % (45.5-73.1); Platelet Count Result 128 k/mm3 (150-375); Red Blood Count 3.09 M/mm3 (4.2-5.4); Red Cell Distribution Width 16.7 % (11.5-14.5); White Blood Count 7.8 K/mm3 (4.5-10.0)
[2024-02-02 06:31] LABS: Alanine Aminotransferase 20 U/L (6-35); Albumin Level 3.1 g/dL (3.5-5.1); Alkaline Phosphatase 80 U/L (38-126); Aspartate Amino Transferase 26 U/L (14-36); Bilirubin,Total 0.7 mg/dL (0.2-1.3); Blood Urea Nitrogen 16 mg/dL (7-17); Calcium 8.5 mg/dL (8.4-10.2); Carbon Dioxide > 40 mmol/L (22-30); Chloride 101 mmol/L (98-107); Estimated Glomerular Filt Rate > 60; Glucose 88 mg/dL (65-110); Potassium 3.6 mmol/L (3.4-5.0); Sodium 142 mmol/L (137-145)
--- NOTE | 2024-02-02 06:58 | PC.NURSE ---
This patient, Jazmin Bullard, was received from [ [id number]] on 02/02/24 at 0635. Patient/family oriented to unit policies and routines
--- NOTE | 2024-02-02 07:35 | P.PNIM_ITS ---
Progress Note: A&P Assessment and Plan (1) Pneumonia: Qualifiers: Laterality: left Lung location: lower lobe of lung Pneumonia type: due to unspecified organism Qualified Code(s): J18.9 - Pneumonia, unspecified organism Code(s): J18.9 - Pneumonia, unspecified organism Status: Acute Assessment and Plan: -check ABG p.r.n. if significant hypoxia or lethargy -check sputum culture pending -check urine streptococcal and Legionella pending -blood cultures pending NGTD -continue ceftriaxone 1 g IV Q 24 hours -continue azithromycin 500 mg IVP Q 24 hours Chest x-ray PNA -incentive spirometry while awake. influenza/COVID/RSV negative Guaifenesin b.i.d. Per the [employer] she should be on IV antibiotics for 5 days (2) Acute exacerbation of chronic obstructive airways disease: Code(s): J44.1 - Chronic obstructive pulmonary disease with (acute) exacerbation Status: Acute Assessment and Plan: With macrocytic anemia-no signs of acute blood loss Pulmonology consulted inhaled trilogy to nebulized DuoNebs q.6 hours and nebulized budesonide 500 mcg q.12 hours. add guaifenesin 1200 mg p.o. b.i.d.. Cornet flutter valve q.4 hours while awake. alpha 1 anti trypsin genotype on 02/01 Home CPAP with new settings (3) Pulmonary edema: Code(s): J81.1 - Chronic pulmonary edema Status: Acute Assessment and Plan: Cardiology and pulmonology consulted Patient with severe hypotension 68/42 this afternoon, patient awake able to nod appropriately, will give 50 g of 25% albumin due to patient's low BP, and pulmonary edema. Patient will need to be reassessed in the morning before starting IV Lasix, IV Lasix placed on hold (4) Hypertension: Code(s): I10 - Essential (primary) hypertension Status: Acute Assessment and Plan: -hold home medication, b/p: has been hypotensive since arrival Continue to monitor vitals q.4 hours (5) Weakness: Code(s): R53.1 - Weakness Status: Acute Assessment and Plan: Initiate fall precaution -PT/OT eval and treat -consider care coordination for ongoing increased weakness unable to care for self could be related to infection and dehydration Plan Continue home medications: As ordered VTE Prophylaxis: Eliquis DIET: Heart healthy Anticipated hospital stay: > 2 days Code Status: DNR Time Spent With Patient Time: Great then 55 minutes spent talking to consult, nursing, patient, holding her son in the afternoon his severe hypotension patient reassessed. Subjective Date/time seen: 02/02/24 07:35 Interval history: 88-year-old female with PMHx of COPD on home oxygen 2 L NC, chronic respiratory proximal atrial fibrillation on anticoagulation, diastolic heart failure, HTN, hyperlipidemia, depression and anxiety, benign tremors, anemia along with a neurocognitive disorder currently on Namenda presented to the emergency room [facility]. Patient was transferred to IMU overnight. Patient's blood gas last night showed pH is 7.3, pCO2 61.2 PO2 of 52.7, on BiPAP. A.m. chest x-ray pending. She has flagged for sepsis yesterday already on azithromycin and Rocephin, blood cultures drawn on day of admission no growth to date, due to pulmonary edema sepsis fluid bolus was not give. Amlodipine on hold, oral Lasix given this morning. Will switch to IV Lasix if patient's blood pressure will tolerate it. Review of Systems Review of Systems: All systems reviewed & are unremarkable except as noted in HPI and below Constitutional: Constitutional: Reports no additional constitutional complaints Eyes: Eyes: Reports no additional eye complaints ENT: Reports as per HPI Cardiovascular: Cardiovascular: Reports no additional cardiovascular complaints Respiratory: Respiratory: Reports no additional respiratory complaints Gastrointestinal: Gastrointestinal: Reports no additional gastrointestinal complaints Genitourinary: Genitourinary: Reports no additional female genitourinary complaints Integumentary/Breasts: Skin/Breast: Reports as per HPI Neurologic: Reports as per HPI Psychiatric: Psychiatric: Reports no additional psychiatric complaints Exam Narrative: GENERAL: Well-appearing, well-nourished, resting on BiPAP HEAD: Normocephalic, atraumatic. EYES: EOMI. ENT: Nares clear, no rhinorrhea or epistaxis. Mucous membranes moist. Oropharynx without tonsillar hypertrophy exudate or other lesions. Bilateral TMs pearly phillip non-bulging NECK: Supple. No adenopathy or masses. CHEST: Tolerating BiPAP, unable to hear breath sounds over BiPAP noise HEART: Regular rate and rhythm. No murmur heard. Normal peripheral pulses. EXTREMITIES: upper extremity tremor, Normal range of motion. SKIN: Warm, dry, no rash. NEURO: No focal deficits. Alert and oriented x3. PSYCH: Normal mood and affect Objective Data Vital Signs Vital Signs: Vital Signs - 24 hr 02/01/24 08:18 02/01/24 08:18 02/01/24 08:27 Temperature Pulse Rate 87 83 Respiratory Rate 20 20 Blood Pressure Pulse Oximetry 90 Oxygen Delivery Nasal Cannula Oxygen Flow Rate 3 Fraction of Inspired Oxygen 32 02/01/24 08:03 02/01/24 08:00 02/01/24 10:06 Temperature 96.1 F L Pulse Rate 98 83 Respiratory Rate 18 Blood Pressure 102/55 L 100/55 L Pulse Oximetry 91 Oxygen Delivery Oxygen Flow Rate Fraction of Inspired Oxygen 02/01/24 10:20 02/01/24 12:00 02/01/24 12:00 Temperature 96.5 F L Pulse Rate 88 86 Respiratory Rate 16 Blood Pressure 97/47 L Pulse Oximetry 94 96 Oxygen Delivery Nasal Cannula Oxygen Flow Rate 4 Fraction of Inspired Oxygen 02/01/24 13:57 02/01/24 13:57 02/01/24 14:06 Temperature Pulse Rate 81 80 Respiratory Rate 24 H 20 Blood Pressure Pulse Oximetry 95 Oxygen Delivery Nasal Cannula Oxygen Flow Rate 4 Fraction of Inspired Oxygen 36 02/01/24 16:00 02/01/24 16:00 02/01/24 19:50 Temperature 97.3 F L 97.9 F Pulse Rate 90 95 86 Respiratory Rate 18 24 H Blood Pressure 149/82 H 103/57 L Pulse Oximetry 92 92 Oxygen Delivery Oxygen Flow Rate Fraction of Inspired Oxygen 02/01/24 19:51 02/01/24 20:00 02/01/24 20:00 Temperature 97.9 F Pulse Rate 87 86 92 Respiratory Rate 24 H Blood Pressure 98/58 L 103/57 L Pulse Oximetry 95 92 Oxygen Delivery Oxygen Flow Rate Fraction of Inspired Oxygen 02/01/24 20:00 02/01/24 22:07 02/01/24 22:18 Temperature Pulse Rate 78 Respiratory Rate 18 18 Blood Pressure Pulse Oximetry 92 96 Oxygen Delivery Nasal Cannula BiPAP Oxygen Flow Rate 4 Fraction of Inspired Oxygen 02/01/24 22:20 02/01/24 22:25 02/01/24 23:57 Temperature Pulse Rate 80 87 Respiratory Rate 18 18 Blood Pressure Pulse Oximetry 94 92 Oxygen Delivery Nasal Cannula Oxygen Flow Rate 4 Fraction of Inspired Oxygen 02/02/24 00:00 02/02/24 02:46 02/02/24 04:00 Temperature Pulse Rate 88 78 Respiratory Rate 18 Blood Pressure Pulse Oximetry 93 91 Oxygen Delivery BiPAP Oxygen Flow Rate Fraction of Inspired Oxygen 02/02/24 04:00 02/02/24 06:00 02/02/24 06:07 Temperature 97.3 F L Pulse Rate 64 77 73 Respiratory Rate 20 16 Blood Pressure 115/71 Pulse Oximetry 94 Oxygen Delivery Oxygen Flow Rate Fraction of Inspired Oxygen 02/02/24 06:39 Temperature 97.2 F L Pulse Rate 86 Respiratory Rate 18 Blood Pressure 130/72 Pulse Oximetry 96 Oxygen Delivery Oxygen Flow Rate Fraction of Inspired Oxygen Intake/Output Intake/Output: Intake & Output 01/30/24 01/31/24 02/01/24 02/02/24 23:59 23:59 23:59 23:59 Intake Total 1040 1242 1270 111 Output Total 20 Balance 1020 1242 1270 111 Meds/Results Medications: Active Medications Generic Name Dose Route Start Last Admin Trade Name Freq PRN Reason Stop Dose Admin Acetaminophen 650 mg 01/31/24 12:16 Acetaminophen 325 Mg Tablet PO Q4H PRN Pain Albuterol 2.5 mg 01/30/24 16:38 02/01/24 08:18 Albuterol Sulfate Neb 2.5 Mg/3 Ml Inh INHALATION 2.5 mg Q8H PRN Administration wheezing Albuterol/Ipratropium 3 ml 02/01/24 14:00 02/02/24 05:59 Ipratropium 0.5 Mg/Albuterol Sulfate 2.5 Mg Ampul.Neb 3 Ml NEBULIZE 3 ml Q6HRT MASTER Administration Amlodipine Besylate 5 mg 01/31/24 09:00 02/01/24 10:08 Amlodipine Besylate 5 Mg Tablet PO Not Given DAILY MASTER Apixaban 5 mg 01/30/24 17:00 02/01/24 16:35 Apixaban 5 Mg Tablet PO 5 mg BID MASTER Administration Aripiprazole 2 mg 01/31/24 09:00 02/01/24 10:03 Aripiprazole 2 Mg Tablet PO 2 mg DAILY MASTER Administration Atorvastatin Calcium 80 mg 01/30/24 21:00 02/01/24 20:47 Atorvastatin 40 Mg Tablet PO 80 mg HS MASTER Administration Bisacodyl 5 mg 01/30/24 16:38 Bisacodyl 5 Mg Tablet Ec PO DAILY PRN constipation Budesonide 0.5 mg 02/01/24 20:00 02/01/24 21:45 Budesonide Respule Neb 0.5 Mg/2 Ml Amp INHALATION 0.5 mg Q12HRT MASTER Administration Citalopram Hydrobromide 20 mg 01/30/24 21:00 02/01/24 20:47 Citalopram Hydrobromide 20 Mg Tablet PO 20 mg QHS MASTER Administration Docusate Sodium 100 mg 01/30/24 17:00 02/01/24 16:35 Docusate Sodium 100 Mg Capsule PO 100 mg BID MASTER Administration Ferrous Sulfate 325 mg 02/01/24 09:00 02/01/24 10:03 Ferrous Sulfate [address] PO 325 mg Q48H MASTER Administration Furosemide 20 mg 01/31/24 09:00 02/01/24 10:58 Furosemide 20 Mg Tablet PO Not Given DAILY MASTER Guaifenesin 1,200 mg 02/01/24 10:10 02/01/24 20:47 Guaifenesin 12 Hr 600 Mg Tabcr PO 1,200 mg Q12HR MASTER Administration Ceftriaxone Sodium 1 gm in 50 mls @ 100 mls/hr 01/31/24 16:00 02/01/24 16:55 Rocephin 1 Gm/Ns 50 Ml IVPB Infused Q24H MASTER Infusion Azithromycin 500 mg in 250 mls @ 250 mls/hr 01/31/24 16:00 02/01/24 16:14 Zithromax IVPB Infused Q24H MASTER Infusion Memantine 5 mg 01/30/24 21:00 02/01/24 20:47 Memantine 5 Mg Tablet PO 5 mg Q12HR MASTER Administration Mirtazapine 15 mg 01/30/24 21:00 02/01/24 20:47 Mirtazapine 15 Mg Tablet PO 15 mg HS MASTER Administration Oxycodone HCl 5 mg 01/30/24 16:38 02/02/24 00:22 Oxycodone Hcl (*Crx) 5 Mg Tab Ir PO 5 mg Q4H PRN Administration Pain Rated 4-6 Pantoprazole Sodium 40 mg 01/31/24 09:00 02/01/24 10:03 Pantoprazole 40 Mg Tablet PO 40 mg QAM MASTER Administration Perflutren Lipid Microsphere 0 ml 02/01/24 09:54 Perflutren Lipid Microspheres 1.5 Ml Vial Diluted To 10 Ml Total Volume IV PUSH 02/04/24 09:54 ONCE PRN adequate visualization Protocol Polyethylene Glycol 17 gm 01/30/24 16:38 02/01/24 10:18 Polyethylene Glycol 3350 17 Gm Powd.Pack PO 17 gm QAM PRN Administration Constipation Pramipexole Dihydrochloride 0.5 mg 01/30/24 21:00 02/01/24 20:47 Pramipexole 0.5 Mg Tablet PO 0.5 mg HS MASTER Administration Pregabalin 100 mg 01/30/24 21:00 02/01/24 20:47 Pregabalin (*Crx) 50 Mg Capsule PO 100 mg Q12HR MASTER Administration Trazodone HCl 50 mg 01/30/24 21:00 02/01/24 20:47 Trazodone Hcl 50 Mg Tablet PO 50 mg HS MASTER Administration Vitamin D 1,000 units 01/31/24 09:00 02/01/24 10:03 Cholecalciferol 1,000 Units Tablet PO 1,000 units DAILY MASTER Administration Radiology Results: ITS Impressions Chest X-Ray 02/01/24 09:45 Impression: Probable developing bibasilar and interstitial pulmonary edema, versus possibly pneumonia. Correlate clinically. Discoid right mid lung atelectasis. Chest CTA 02/01/24 12:08 Impression: No evidence of pulmonary embolus, aortic dissection, or aortic aneurysm. Mild mixed alveolar and interstitial pulmonary edema. Minimal pleural effusions with probable bibasilar/dependent atelectatic change, right worse than left. Correlate clinically for pneumonia. Compression fractures, as above. Questionable mild cirrhotic change of the liver. Correlate clinically and with LFTs. Labs Labs: Laboratory Results - last 24 hr 01/31/24 02/01/24 02/01/24 05:52 05:49 10:51 WBC 8.5 RBC 3.38 L Hgb 9.6 L Hct 35.6 L MCV 105.3 H MCH 28.4 MCHC 27.0 L RDW 16.8 H Plt Count 146 L MPV 10.7 H Immature Gran % (Auto) 0.7 H Neut % (Auto) 74.2 H Lymph % (Auto) 17.3 L Dundy % (Auto) 6.4 Eos % (Auto) 0.9 Baso % (Auto) 0.5 Lymph # (Auto) 1.46 Dundy # (Auto) 0.5 Eos # (Auto) 0.1 Baso # (Auto) 0.0 Abs Immat Gran (auto) 0.06 H Absolute Neuts (auto) 6.3 Absolute Nucleated RBC 0.000 Nucleated RBC % 0.0 Platelet Estimate Slightly decreased % Immature Plt Fraction Polychromasia 1+ Anisocytosis 1+ Schistocytes None seen Puncture Site ABG pH ABG pCO2 ABG pO2 ABG PO2/FiO2 Ratio ABG HCO3 ABG O2 Saturation ABG O2 Content ABG Base Excess A-a Gradient Oxyhemoglobin Total Hemoglobin O2 Delivery Device O2 Liters/Min FiO2 Expiratory Pressure Inspiratory Pressure Sodium Potassium Chloride Carbon Dioxide Anion Gap BUN Creatinine Estim Creat Clear Calc Estimated GFR Glucose Calcium Total Bilirubin AST ALT Alkaline Phosphatase NT-Pro-B Natriuret Pep 411 H Total Protein Albumin Procalcitonin 0.1 TSH 2.760 Free T4 0.99 Nasal MRSA (PCR) Not detected 02/02/24 02/02/24 04:47 05:15 WBC 7.8 RBC 3.09 L Hgb 8.8 L Hct 30.8 L MCV 99.7 D MCH 28.5 MCHC 28.6 L RDW 16.7 H Plt Count 128 L MPV 10.8 H Immature Gran % (Auto) 0.6 H Neut % (Auto) 71.8 Lymph % (Auto) 19.0 Dundy % (Auto) 6.9 Eos % (Auto) 1.3 Baso % (Auto) 0.4 Lymph # (Auto) 1.48 Dundy # (Auto) 0.5 Eos # (Auto) 0.1 Baso # (Auto) 0.0 Abs Immat Gran (auto) 0.05 H Absolute Neuts (auto) 5.6 Absolute Nucleated RBC 0.000 Nucleated RBC % 0.0 Platelet Estimate % Immature Plt Fraction 3.6 Polychromasia Anisocytosis Schistocytes Puncture Site Left radial ABG pH 7.388 ABG pCO2 61.2 H* ABG pO2 52.7 L ABG PO2/FiO2 Ratio 1.65 ABG HCO3 36.0 H ABG O2 Saturation 85.9 L* ABG O2 Content 12.5 L ABG Base Excess 9.4 A-a Gradient 103.9 Oxyhemoglobin 86.3 L* Total Hemoglobin 10.3 L O2 Delivery Device Bipap O2 Liters/Min Not Reportable FiO2 32 Expiratory Pressure Not Reportable Inspiratory Pressure Not Reportable Sodium 142 Potassium 3.6 Chloride 101 Carbon Dioxide > 40 H Anion Gap BUN 16 Creatinine 0.80 Estim Creat Clear Calc Not Reportable Estimated GFR > 60 Glucose 88 Calcium 8.5 Total Bilirubin 0.7 AST 26 ALT 20 Alkaline Phosphatase 80 NT-Pro-B Natriuret Pep Total Protein 6.0 L Albumin 3.1 L Procalcitonin TSH Free T4 Nasal MRSA (PCR) Quality VTE Prophylaxis VTE prophylaxis: pharmacologic ordered
[2024-02-02 07:36] LABS: Anisocytosis 1+; Hypochromasia 1+; Platelet Estimate Slightly Decreased (Adequate); Schistocytes None Seen
[2024-02-02] MEDS: BUDESONIDE RESPULE NEB 0.5 MG/2 ML AMP INHALATION ×2 (07:40→19:22)
[2024-02-02] MEDS: FUROSEMIDE 20 MG TABLET PO (08:03)
[2024-02-02] MEDS: CHOLECALCIFEROL 1,000 UNITS TABLET 1000 UNITS PO (08:03)
[2024-02-02] MEDS: guaiFENesin 12 HR 600 MG TABCR 1200 MG PO ×2 (08:08→20:25)
[2024-02-02] MEDS: APIXABAN 5 MG TABLET PO ×2 (08:08→16:56)
[2024-02-02] MEDS: amLODIPine BESYLATE 5 MG TABLET PO (08:08)
[2024-02-02] MEDS: PANTOPRAZOLE 40 MG TABLET PO (08:08)
[2024-02-02] MEDS: ARIPiprazole 2 MG TABLET PO (08:09)
[2024-02-02] MEDS: MEMANTINE 5 MG TABLET PO ×2 (08:09→20:25)
[2024-02-02] MEDS: PREGABALIN (*CRX) 50 MG CAPSULE 100 MG PO ×2 (08:10→20:25)
--- NOTE | 2024-02-02 09:17 | PC.NURSE ---
pt desat to 79%, RT putting pt back on bipap
--- NOTE | 2024-02-02 09:38 | PM.PNPUL ---
Progress Note: A&P Assessment and Plan (1) COPD (chronic obstructive pulmonary disease): Code(s): J44.9 - Chronic obstructive pulmonary disease, unspecified Status: Acute Assessment and Plan: Regarding her COPD: 35 pack year tobacco, quit 8-10 years ago, chronic hypoxemic respiratory failure wearing 1 L at rest, 2 L with activity and 2 L sleep. Chronic hypercarbic respiratory failure on noninvasive ventilation with the AVAPS AE mode and 2 L bleed in. previously followed at [facility] Last office visit note 02/18/2023. Severe COPD per PFT in 2016. she was not interested in pulmonary rehabilitation. She is current on all her vaccines. Continue trilogy 100, albuterol inhaler nebulized rescue. 3 L with activity, 1 L at rest and 2 L at night. Noncompliant with CPAP and uninterested in restudy or trouble shooting. 02/01/24: patient has a few end-expiratory expiratory wheezes today. She has no increase in her phlegm production she does have worsening dyspnea on exertion. Plan: I will change the patient from her inhaled trilogy to nebulized DuoNebs q.6 hours and nebulized budesonide 500 mcg q.12 hours. Patient also has difficulty expectorating and I will add guaifenesin 1200 mg p.o. b.i.d.. I will add a Cornet flutter valve q.4 hours while awake. I will send an alpha 1 anti trypsin genotype on 02/01. 02/02/2024: Overall the patient tells me she is doing better than yesterday although she cannot quantitate this and can not tell me what is better. She still says she has some labored breathing. Her cough is the same and she says it is dry although loose. The patient does not know if she slept last night with the noninvasive ventilator on. She does remember being cold last night. White blood cell count 7.8, creatinine 0.8. Plan: Continue DuoNebs q.6 hours and nebulized budesonide 500 mcg q.12 hours. Continue guaifenesin 1200 mg p.o. b.i.d. and continue Cornet flutter valve q.4 hours while awake and EzPAP treatment for atelectasis. Discussed with Manuela Adkins, will follow with you. (2) Pneumonia: Qualifiers: Laterality: left Lung location: lower lobe of lung Pneumonia type: due to unspecified organism Qualified Code(s): J18.9 - Pneumonia, unspecified organism Code(s): J18.9 - Pneumonia, unspecified organism Status: Acute Assessment and Plan: Discharged from [facility] on 12/10/2019 for status post vancomycin and cefepime for pneumonia. Discharged on Augmentin. Readmitted 12/28 with PE and treated for pneumonia with cefepime and vanco. Also treated for COPD exacerbation with Solu-Medrol and DuoNebs. Transition to azithromycin. Discharged to rehabilitation center and then to assisted living at [facility] on no antibiotics on 01/22/2024. 02/01/24: currently the patient was readmitted with weakness of the arms and legs and worsening shortness of breath. She has persistent cough that is unchanged from 12/29/2023 with no increased phlegm production or chest pain. Her admission white blood cell count was 11.3. She has been afebrile. She has been treated with ceftriaxone and azithromycin since 01/30/2024. Review of her imaging on 01/30/2024 demonstrates small lung volumes with left lower lobe infiltrate and compared to 01/17/2024 the right lower lobe and left lower infiltrates are improved. Blood cultures are negative. COVID influenza and RSV RT PCR study are negative. Plan: I will continue ceftriaxone and azithromycin, day 3. I will send a MRSA nasal swab. I will send a extended respiratory pathogen panel. I will order CTA of the chest to reassess infiltrates. Overall my clinical suspicion for bacterial pneumonia is low and I will not broaden her antibiotic coverage at this time. Urine Legionella, urine pneumococcal studies pending. I will send a mycoplasma IgM on 02/02/2024. 02/02/24: Patient is afebrile. White blood cell count 7.8, procalcitonin 0.1 yesterday, CT scan with diffuse interstitial alveolar infiltrates with some atelectasis but no focal infiltrates suggesting pneumonia. MRSA swab negative. Plan: Patient is on day 4 ceftriaxone and azithromycin. Will plan to finish 5 day treatment. Blood cultures negative time 2. Urine Legionella, urine pneumococcal, serum mycoplasma IgM and respiratory pathogen panel pending. (3) Chronic respiratory failure with hypoxia and hypercapnia: Code(s): J96.11 - Chronic respiratory failure with hypoxia; J96.12 - Chronic respiratory failure with hypercapnia Status: Acute Assessment and Plan: Patient with COPD and history of chronic hypercarbic and hypoxemic respiratory failure and prescribed noninvasive ventilation with the AVAPS AE mode with respiratory rate auto, tidal volume 350, EPAP 5, maximum EPAP 10. Minimum pressure support 5, maximum pressure support 10 With 2 L bleed in on 10/30/2023. Patient tells me she has been wearing a fullface mask with this new machine at [facility]. Download from via [employer] from 01/03/2024 through 02/01/2024. Patient is on noninvasive ventilator with the Belinda machine with a T TV-VAPS-AE mode. rate is auto. Tidal volume 350. EPAP minimum 5, EPAP maximum 10, pressure support minimum 5, pressure support maximum 12. % of days with usage greater than or equal to 4 hours is 67%. Average usage on days used is 5 hours and 50 minutes. Weekly average respiratory rate median 12-16. Weekly average tidal volume median 350-400. Weekly average EPAP 7.5. Weekly average IPAP 15.5-16. Weekly average unintentional leak 2.5-25 weekly average minute ventilation 4-6. I interpret this download as suboptimal compliance, low tidal volume and acceptable leak. Plan: I will place the patient on a hospital noninvasive ventilator with the AVAPS mode with a rate of 14, tidal volume 450, EPAP 7, minimal inspiratory pressure 8, maximal inspiratory pressure 25, I-time of 1, rise of 3 and 32% FiO2. I will obtain an ABG prior to removal and an overnight oximetry. Patient wore the hospital noninvasive ventilator with the AVAPS mode rate of 14, tidal volume 450, EPAP 7, minimal inspiratory pressure 8, maximal inspiratory pressure 25, Inspiratory time 1.0, rise of 1 and 32% FiO2. ABG prior to removal of the mask was 7.39/61/53. Patient had an overnight oximetry on these studies with recording duration of 6 hours and 28 minutes. Average saturation 89%. Low saturation 83%. Time with saturation less than or equal to 88% was 122 minutes, oxygen desaturation index 8.9. Her weight today is 71.5 with an admission weight of 67.3. Plan: we will call via [employer], to determine if they can change her Belinda home noninvasive ventilator to a rate of 18, tidal volume 500, EPAP minimum 5, EPAP maximum 10, pressure support minimum 5, pressure support maximum [address] her on 5 L bleed in. Will repeat overnight oximetry an ABG in the morning prior to removal on her home machine if this can be arranged. If the changes to the home machine cannot be arranged will place on hospital AVAPS with a rate of 14, tidal volume 500, EPAP 7, minimal inspiratory pressure 8, maximal inspiratory pressure 25, inspiratory time 1.0, Rise of 1 and 40%. (4) Pulmonary embolism: Code(s): I26.99 - Other pulmonary embolism without acute cor pulmonale Status: Acute Assessment and Plan: Patient with a CT angiogram of the chest on 12/29/2023 with small non filling defects in the left lower lobe. Patient placed on Eliquis. 02/01/24: Plan: I will repeat a CT angiogram of the chest today to reassess filling defects in left lower lobe and to assess for new pulmonary emboli. Continue Eliquis 5 p.o. b.i.d. Later in the day CT scan angiogram of the chest with no PE. 02/02/24: Continue Eliquis 5 p.o. b.i.d. (5) Pulmonary hypertension: Code(s): I27.20 - Pulmonary hypertension, unspecified Status: Acute Assessment and Plan: Regarding her pulmonary hypertension. Patient had an echocardiogram on 06/12/2023 with LVEF 82%, diastolic dysfunction, mild aortic regurgitation, mild mitral regurgitation, mild tricuspid regurgitation with an RVSP of 45. echocardiogram on 10/28/2023 with LVEF greater than 70, grade 1 diastolic dysfunction, RV size and function were normal, right atrial size was normal. PASP 67. Echocardiogram 12/30/2023: LVEF greater than 70, grade 1 diastolic dysfunction, right ventricular moderately enlarged with normal function. Severe left atrial enlargement. Severely enlarged right atrial enlargement, PASP 66. Etiology of pulmonary hypertension and includes: Severe COPD with chronic hypercarbic and hypoxemic respiratory failure, pulmonary embolism, untreated obstructive sleep apnea and diastolic dysfunction. 02/01/24: plan: Repeat echocardiogram ordered. Continue treatment for COPD, pulmonary embolism, obstructive sleep apnea, AFIB and diastolic dysfunction. Later in the day a limited echocardiogram was performed with no Doppler. Moderate concentric LVH with vigorous systolic function. Right ventricular chamber was normal. Right atrial chamber normal. No PASP measured. 02/02/24: Echocardiogram did not reassess pulmonary pressures. Plan: Will continue to optimize COPD with chronic hypercarbic and hypoxemic respiratory failure, continue treatment for PE, noninvasive ventilation will treat obstructive sleep apnea. Patient with mildly elevated BNP, CT scan of the chest with evidence of congestion and low blood pressure. Ideally would aggressively diurese patient for the possibility of fluid overload but at this time we are limited by low blood pressure. This morning the patient received her home dose of amlodipine 5 an Lasix 20 p.o.. If she can tolerate more aggressive diuresis would recommend this. Cardiology and hospitalist managing diuretics. Subjective Date/time seen: 02/02/24 09:38 Interval history: 02/01/2024: This is a new pulmonary consult for pulmonary hypertension. 89-year-old with a history of hypertension, hyperlipidemia, obesity, atrial fibrillation on anticoagulation, tremor, COPD on home oxygen 1 L at rest, 2 L with activity and 2 L on her home noninvasive ventilator with AVAPS AE mode. Regarding her COPD: 35 pack year tobacco, quit 8-10 years ago, previously followed at [place] Last office visit note 02/18/2023. Severe COPD per PFT in 2016. she was not interested in pulmonary rehabilitation. She is current on all her vaccines. Continue trilogy 100, albuterol inhaler nebulized rescue. 3 L with activity, 1 L at rest and 2 L at night. Noncompliant with CPAP and uninterested in restudy or trouble shooting. Regarding her pulmonary hypertension. Patient had an echocardiogram on 06/12/2023 with LVEF 82%, diastolic dysfunction, mild aortic regurgitation, mild mitral regurgitation, mild tricuspid regurgitation with an RVSP of 45. echocardiogram on 10/28/2023 with LVEF greater than 70, grade 1 diastolic dysfunction, RV size and function were normal, right atrial size was normal. PASP 67. Echocardiogram 12/30/2023: LVEF greater than 70, grade 1 diastolic dysfunction, right ventricular moderately enlarged with normal function. Severe left atrial enlargement. Severely enlarged right atrial enlargement, PASP 66. Patient previously seen by Pulmonary for COPD with chronic hypercarbic and hypoxemic respiratory failure and VBG on 2 L nasal cannula 7.30/78/ less than 27. Prescribed a home noninvasive ventilator with the AVAPS AE mode on 10/30/2023. 35 pack year tobacco use, quit 8-10 years ago. Maintained on trilogy 10/30/2023: Default settings; height is 1.38 m, wt 68.8 kg. BMI 35.9 kg/m2 Primary settings : AVAPS-AE with Target Tidal Volume TV 350 ml, RR( intentionally left blank) Max pressure 20; PS Min 5; PS Max 10; EPAP Min 5; EPAP Max 10. Bleed in 2 L/min with sleep This form was faxed to [employer] [phone] to [employer]askar who worked with us to provide equipment for this patient. Plan is for this to be set up at [facility] 10/29 today, with discharge planned for today. Recently admitted for weakness and treated for aspiration pneumonia, CT angiogram of the chest showed small nonocclusive filling defects left lower lobe with low clot burden. She was treated with antibiotics. She had a swallow study with laryngeal penetration and aspiration with continued speech therapy and on 01/21/2024 she was tolerated thin ice water after doing She was discharged to rehabilitation center And discharged back to [facility] on 01/22/2024. Patient stated she was doing well on 01/28/2024 but on 01/28 she was weak. On 01/30/24 she could not walk because she had weak arms and legs and she had worsening shortness of breath. She presented to the emergency department. Patient states her persistent cough since her admission on 12/29/2023 was unchanged. She denied fever, chills, chest pain, hemoptysis. She has minimal production of phlegm. In the emergency department her white blood cell count was 11.3 with 0.6% eosinophils, creatinine was 1.2, BNP was 504, COVID influenza and RSV RT PCR studies were negative. Chest x-ray on 01/29 demonstrated left lower lobe infiltrate with improved right and left lower lobe infiltrates from 01/17/2024. She was admitted to the hospital and treated for pneumonia with ceftriaxone and azithromycin. 01/31/24: she was hypotensive required 1 L IV fluids. She was placed on auto PAP at night. Her procalcitonin was 0.1. 02/01/24: Today is she tells me that her dyspnea on exertion is the same since admission, she states that her cough and phlegm production or unchanged since admission she denies any lower extremity swelling or chest pain. She is afebrile. White blood cell count 8.5, creatinine 0.8. Later in the day CT angiogram of the chest with no PE, mild interstitial alveolar infiltrates with minimal effusions consistent with congestion. 02/02/2024: Overall the patient tells me she is doing better than yesterday although she cannot quantitate this and can not tell me what is better. She still says she has some labored breathing. Her cough is the same and she says it is dry although loose. The patient does not know if she slept last night with the noninvasive ventilator on. She does remember being cold last night. White blood cell count 7.8, creatinine 0.8. Patient wore the hospital noninvasive ventilator with the AVAPS mode rate of 14, tidal volume 450, EPAP 7, minimal inspiratory pressure 8, maximal inspiratory pressure 25, Inspiratory time 1.0, rise of 1 and 32% FiO2. ABG prior to removal of the mask was 7.39/61/53. Patient had an overnight oximetry on these studies with recording duration of 6 hours and 28 minutes. Average saturation 89%. Low saturation 83%. Time with saturation less than or equal to 88% was 122 minutes, oxygen desaturation index 8.9. Her weight today is 71.5 with an admission weight of 67.3. DATA: 02/01/24: Clinical Indication: Pulmonary embolus CT Scan of the Chest with Contrast: Technique: Contiguous sections were acquired throughout the chest after intravenous administration of 100 cc of Omnipaque 350. Dose reduction technique was used on this scan by utilizing automated exposure control and iterative reconstruction technique. The dose-length product (DLP) was 623.41 mGy-cm. Findings: There is no evidence of any significant mediastinal, hilar or axillary lymphadenopathy. There is no filling defect in the pulmonary arterial tree to suggest pulmonary embolus. There is no evidence of aortic dissection or aneurysm. No pericardial effusion. There are minimal bilateral pleural effusions, with bibasilar atelectatic change, right worse than left. There is probable interstitial edema.. Probable minimal patchy groundglass pulmonary edema as well. Images through the upper abdomen reveal moderate to large hiatal hernia. Question mild cirrhotic morphology of liver. T12 vertebroplasty noted. Moderate to severe compression fracture of L1 noted. There is mild compression fracture of T11. Impression: No evidence of pulmonary embolus, aortic dissection, or aortic aneurysm. Mild mixed alveolar and interstitial pulmonary edema. Minimal pleural effusions with probable bibasilar/dependent atelectatic change, right worse than left. Correlate clinically for pneumonia. Compression fractures, as above. Questionable mild cirrhotic change of the liver. Correlate clinically and with LFTs. 12/30/23: Summary 1. Left ventricular chamber dimension is normal. 2. Left ventricular systolic function is hyperdynamic, estimated at >70%. 3. There is mildly increased left ventricular wall thickness. 4. The left ventricular diastolic function is grade I diastolic dysfunction. 5. Right ventricular chamber dimension is moderately enlarged. 6. Right ventricular systolic function is normal. 7. Left atrial chamber dimension is severely enlarged. 8. Right atrial chamber dimension is severely enlarged. 9. There is mild to moderate tricuspid valve regurgitation. 10. Estimated pulmonary arterial systolic pressure is 66 mmHg. Right Ventricle Right ventricular chamber dimension is moderately enlarged. Right ventricular systolic function is normal. Right Atria Right atrial chamber dimension is severely enlarged. Atrial Septum Intact interatrial septum visualized by color flow imaging. 12/29/23: EXAMINATION: CTA chest PE protocol INDICATION: hypoxia, SHERON COMPARISON: X-ray chest, same date; CT chest 03/03/2022; CT abdomen pelvis 09/02/2023. FINDINGS: Lung parenchyma and airways: Segmental consolidation in the dependent portions of the bilateral lower lobes and right middle lobe. Patent airways. Pleura: Small left pleural fluid collection. Thoracic inlet, axillae and chest wall: Unremarkable. Thoracic aorta: Mild thoracic aortic ectasia. Moderate atherosclerotic calcifications. No dissection. Mediastinum: Moderate enlarged subcarinal and bilateral hilar lymph nodes. Hiatal hernia. Patulous esophagus. Heart and pericardium: Left ventricular hypertrophy. RV/LV ratio 1.5. Coronary artery calcifications: Moderate. Upper abdomen: Multiple hepatic hypodensities, likely representing cysts. Multiple stable pancreatic cysts. Multiple stable renal cysts. Bones: No acute osseous finding. Multiple stable compression deformities in the thoracolumbar junction. Vertebroplasty cement at T12 Pulmonary arteries: Study quality: Adequate. Small nonocclusive filling defects in several left lower lobe segmental arteries. IMPRESSION: Small nonocclusive filling defects in several left lower lobe segmental arteries. Low clot burden. The RV/LV ratio is 1.5 but this may be confounded by left ventricular hypertrophy. No septal bowing or significant hepatic vein reflux. Segmental right middle lobe and bilateral lower lobe dependent consolidations, concerning for pneumonia. Aspiration should be considered in the differential. Small left pleural effusion. Subcarinal and bilateral hilar lymphadenopathy. 10/28/23: Echo Summary 1. Left ventricular chamber dimension is normal. 2. Left ventricular systolic function is hyperdynamic, estimated at >70%. 3. There is mildly increased left ventricular wall thickness. 4. The left ventricular diastolic function is grade I diastolic dysfunction. 5. Right ventricular systolic function is normal. 6. Left atrial chamber dimension is severely enlarged. 7. There is mild mitral valve regurgitation. 8. There is mild tricuspid valve regurgitation. Right Ventricle Right ventricular chamber dimension is normal. Right ventricular systolic function is normal. Right Atria Right atrial chamber dimension is normal. Review of Systems Constitutional: Constitutional: Reports no additional constitutional complaints Eyes: Eyes: Reports no additional eye complaints ENT: Reports system reviewed and no additional complaints, except as documented Cardiovascular: Cardiovascular: Reports no additional cardiovascular complaints Respiratory: Respiratory: Reports no additional respiratory complaints Gastrointestinal: Gastrointestinal: Reports no additional gastrointestinal complaints Musculoskeletal: Musculoskeletal: Reports no additional musculoskeletal complaints Neurologic: Reports system reviewed and no additional complaints, except as documented Psychiatric: Psychiatric: Reports no additional psychiatric complaints Endocrine: Endocrine: Reports no additional endocrine complaints Hematologic/Lymphatic: Hematologic/Lymphatic: Reports no additional hematologic/lymphatic complaints Allergic/Immunologic: Allergic/Immunologic: Reports no additional allergic/immunologic complaints Exam Const: General: cooperative and comfortable HENMT: Head: normal to inspection Ears: hearing grossly normal bilaterally Eyes: General: appearance normal, both eyes and all related structures Neck: Neck: normal visual inspection Chest: Chest palpation & inspection: normal inspection of the chest Resp: Effort & Inspection: normal respiratory effort and able to speak in complete sentences Auscultation: crackles, no rales, no rhonchi, wheezes and lung sounds not diminished Other: Bilateral inspiratory and expiratory squeaks and crackles Cardio: Jugular venous distension: no JVD GI: Inspection: normal to inspection Skin: General skin exam: normal color Neuro: General: oriented to person, oriented to place and oriented to time Extrem: General: normal to inspection Psych: Appearance: grossly normal Objective Data Vital Signs Vital Signs: Vital Signs - 24 hr 02/01/24 10:06 02/01/24 10:20 02/01/24 12:00 Temperature 35.8 C L Pulse Rate 88 Respiratory Rate 16 Blood Pressure 100/55 L 97/47 L Pulse Oximetry 94 96 Oxygen Delivery Nasal Cannula Oxygen Flow Rate 4 Fraction of Inspired Oxygen 02/01/24 12:00 02/01/24 13:57 02/01/24 13:57 Temperature Pulse Rate 86 81 Respiratory Rate 24 H Blood Pressure Pulse Oximetry 95 Oxygen Delivery Nasal Cannula Oxygen Flow Rate 4 Fraction of Inspired Oxygen 36 02/01/24 14:06 02/01/24 16:00 02/01/24 16:00 Temperature 36.3 C L Pulse Rate 80 90 95 Respiratory Rate 20 18 Blood Pressure 149/82 H Pulse Oximetry 92 Oxygen Delivery Oxygen Flow Rate Fraction of Inspired Oxygen 02/01/24 19:50 02/01/24 19:51 02/01/24 20:00 Temperature 36.6 C 36.6 C Pulse Rate 86 87 86 Respiratory Rate 24 H 24 H Blood Pressure 103/57 L 98/58 L 103/57 L Pulse Oximetry 92 95 92 Oxygen Delivery Oxygen Flow Rate Fraction of Inspired Oxygen 02/01/24 20:00 02/01/24 20:00 02/01/24 22:07 Temperature Pulse Rate 92 78 Respiratory Rate 18 Blood Pressure Pulse Oximetry 92 Oxygen Delivery Nasal Cannula Oxygen Flow Rate 4 Fraction of Inspired Oxygen 02/01/24 22:18 02/01/24 22:20 02/01/24 22:25 Temperature Pulse Rate 80 Respiratory Rate 18 18 18 Blood Pressure Pulse Oximetry 96 94 Oxygen Delivery BiPAP Nasal Cannula Oxygen Flow Rate 4 Fraction of Inspired Oxygen 02/01/24 23:57 02/02/24 00:00 02/02/24 02:46 Temperature Pulse Rate 87 88 Respiratory Rate 18 Blood Pressure Pulse Oximetry 92 93 Oxygen Delivery BiPAP Oxygen Flow Rate Fraction of Inspired Oxygen 02/02/24 04:00 02/02/24 04:00 02/02/24 06:00 Temperature Pulse Rate 78 64 77 Respiratory Rate 20 Blood Pressure Pulse Oximetry 91 Oxygen Delivery Oxygen Flow Rate Fraction of Inspired Oxygen 02/02/24 06:07 02/02/24 06:39 02/02/24 07:45 Temperature 36.3 C L 36.2 C L Pulse Rate 73 86 Respiratory Rate 16 18 Blood Pressure 115/71 130/72 Pulse Oximetry 94 96 91 Oxygen Delivery Nasal Cannula Oxygen Flow Rate 4 Fraction of Inspired Oxygen 02/02/24 07:45 02/02/24 07:44 02/02/24 07:59 Temperature 36.4 C L Pulse Rate 84 76 89 Respiratory Rate 18 20 18 Blood Pressure 96/63 L Pulse Oximetry 95 Oxygen Delivery Oxygen Flow Rate Fraction of Inspired Oxygen 02/02/24 08:00 02/02/24 08:56 02/02/24 08:00 Temperature 36.5 C Pulse Rate 91 Respiratory Rate 24 H Blood Pressure 95/53 L 92/57 L Pulse Oximetry 83 L 92 Oxygen Delivery Nasal Cannula Oxygen Flow Rate 4 Fraction of Inspired Oxygen 02/02/24 08:00 Temperature Pulse Rate 87 Respiratory Rate Blood Pressure Pulse Oximetry Oxygen Delivery Oxygen Flow Rate Fraction of Inspired Oxygen Intake/Output Intake/Output: Intake & Output 01/30/24 01/31/24 02/01/24 02/02/24 23:59 23:59 23:59 23:59 Intake Total 1040 1242 1270 351 Output Total 20 Balance 1020 1242 1270 351 Meds/Results Medications: Active Medications Generic Name Dose Route Start Last Admin Trade Name Freq PRN Reason Stop Dose Admin Acetaminophen 650 mg 01/31/24 12:16 Acetaminophen 325 Mg Tablet PO Q4H PRN Pain Albuterol 2.5 mg 01/30/24 16:38 02/01/24 08:18 Albuterol Sulfate Neb 2.5 Mg/3 Ml Inh INHALATION 2.5 mg Q8H PRN Administration wheezing Albuterol/Ipratropium 3 ml 02/01/24 14:00 02/02/24 07:40 Ipratropium 0.5 Mg/Albuterol Sulfate 2.5 Mg Ampul.Neb 3 Ml NEBULIZE 3 ml Q6HRT MASTER Administration Amlodipine Besylate 5 mg 01/31/24 09:00 02/02/24 08:08 Amlodipine Besylate 5 Mg Tablet PO 5 mg DAILY MASTER Administration Apixaban 5 mg 01/30/24 17:00 02/02/24 08:08 Apixaban 5 Mg Tablet PO 5 mg BID MASTER Administration Aripiprazole 2 mg 01/31/24 09:00 02/02/24 08:09 Aripiprazole 2 Mg Tablet PO 2 mg DAILY MASTER Administration Atorvastatin Calcium 80 mg 01/30/24 21:00 02/01/24 20:47 Atorvastatin 40 Mg Tablet PO 80 mg HS MASTER Administration Bisacodyl 5 mg 01/30/24 16:38 Bisacodyl 5 Mg Tablet Ec PO DAILY PRN constipation Budesonide 0.5 mg 02/01/24 20:00 02/02/24 07:40 Budesonide Respule Neb 0.5 Mg/2 Ml Amp INHALATION 0.5 mg Q12HRT MASTER Administration Citalopram Hydrobromide 20 mg 01/30/24 21:00 02/01/24 20:47 Citalopram Hydrobromide 20 Mg Tablet PO 20 mg QHS MASTER Administration Docusate Sodium 100 mg 01/30/24 17:00 02/02/24 08:09 Docusate Sodium 100 Mg Capsule PO Not Given BID MASTER Ferrous Sulfate 325 mg 02/01/24 09:00 02/01/24 10:03 Ferrous Sulfate [address] PO 325 mg Q48H MASTER Administration Furosemide 20 mg 01/31/24 09:00 02/02/24 08:03 Furosemide 20 Mg Tablet PO 20 mg DAILY MASTER Administration Guaifenesin 1,200 mg 02/01/24 10:10 02/02/24 08:08 Guaifenesin 12 Hr 600 Mg Tabcr PO 1,200 mg Q12HR MASTER Administration Ceftriaxone Sodium 1 gm in 50 mls @ 100 mls/hr 01/31/24 16:00 02/01/24 16:55 Rocephin 1 Gm/Ns 50 Ml IVPB Infused Q24H MASTER Infusion Azithromycin 500 mg in 250 mls @ 250 mls/hr 01/31/24 16:00 02/01/24 16:14 Zithromax IVPB Infused Q24H MASTER Infusion Memantine 5 mg 01/30/24 21:00 02/02/24 08:09 Memantine 5 Mg Tablet PO 5 mg Q12HR MASTER Administration Mirtazapine 15 mg 01/30/24 21:00 02/01/24 20:47 Mirtazapine 15 Mg Tablet PO 15 mg HS MASTER Administration Oxycodone HCl 5 mg 01/30/24 16:38 02/02/24 07:54 Oxycodone Hcl (*Crx) 5 Mg Tab Ir PO 5 mg Q4H PRN Administration Pain Rated 4-6 Pantoprazole Sodium 40 mg 01/31/24 09:00 02/02/24 08:08 Pantoprazole 40 Mg Tablet PO 40 mg QAM MASTER Administration Perflutren Lipid Microsphere 0 ml 02/01/24 09:54 Perflutren Lipid Microspheres 1.5 Ml Vial Diluted To 10 Ml Total Volume IV PUSH 02/04/24 09:54 ONCE PRN adequate visualization Protocol Polyethylene Glycol 17 gm 01/30/24 16:38 02/01/24 10:18 Polyethylene Glycol 3350 17 Gm Powd.Pack PO 17 gm QAM PRN Administration Constipation Pramipexole Dihydrochloride 0.5 mg 01/30/24 21:00 02/01/24 20:47 Pramipexole 0.5 Mg Tablet PO 0.5 mg HS MASTER Administration Pregabalin 100 mg 01/30/24 21:00 02/02/24 08:10 Pregabalin (*Crx) 50 Mg Capsule PO 100 mg Q12HR MASTER Administration Trazodone HCl 50 mg 01/30/24 21:00 02/01/24 20:47 Trazodone Hcl 50 Mg Tablet PO 50 mg HS MASTER Administration Vitamin D 1,000 units 01/31/24 09:00 02/02/24 08:03 Cholecalciferol 1,000 Units Tablet PO 1,000 units DAILY MASTER Administration Radiology Results: ITS Impressions Chest CTA 02/01/24 12:08 Impression: No evidence of pulmonary embolus, aortic dissection, or aortic aneurysm. Mild mixed alveolar and interstitial pulmonary edema. Minimal pleural effusions with probable bibasilar/dependent atelectatic change, right worse than left. Correlate clinically for pneumonia. Compression fractures, as above. Questionable mild cirrhotic change of the liver. Correlate clinically and with LFTs. Chest X-Ray 02/02/24 08:37 IMPRESSION: Bibasilar pneumonia. Pulmonary edema versus pneumonitis bilaterally. Sliding hiatus hernia. Labs Labs: Laboratory Results - last 24 hr 01/31/24 02/01/24 02/01/24 05:52 05:49 10:51 WBC RBC Hgb Hct MCV MCH MCHC RDW Plt Count MPV Immature Gran % (Auto) Neut % (Auto) Lymph % (Auto) [place] % (Auto) Eos % (Auto) Baso % (Auto) Lymph # (Auto) [place] # (Auto) Eos # (Auto) Baso # (Auto) Abs Immat Gran (auto) Absolute Neuts (auto) Absolute Nucleated RBC Nucleated RBC % Platelet Estimate % Immature Plt Fraction Hypochromasia Anisocytosis Schistocytes Puncture Site ABG pH ABG pCO2 ABG pO2 ABG PO2/FiO2 Ratio ABG HCO3 ABG O2 Saturation ABG O2 Content ABG Base Excess A-a Gradient Oxyhemoglobin Total Hemoglobin O2 Delivery Device O2 Liters/Min FiO2 Expiratory Pressure Inspiratory Pressure Sodium Potassium Chloride Carbon Dioxide Anion Gap BUN Creatinine Estim Creat Clear Calc Estimated GFR Glucose Calcium Total Bilirubin AST ALT Alkaline Phosphatase NT-Pro-B Natriuret Pep 411 H Total Protein Albumin Procalcitonin 0.1 TSH 2.760 Free T4 0.99 Nasal MRSA (PCR) Not detected 02/02/24 02/02/24 04:47 05:15 WBC 7.8 RBC 3.09 L Hgb 8.8 L Hct 30.8 L MCV 99.7 D MCH 28.5 MCHC 28.6 L RDW 16.7 H Plt Count 128 L MPV 10.8 H Immature Gran % (Auto) 0.6 H Neut % (Auto) 71.8 Lymph % (Auto) 19.0 [place] % (Auto) 6.9 Eos % (Auto) 1.3 Baso % (Auto) 0.4 Lymph # (Auto) 1.48 [place] # (Auto) 0.5 Eos # (Auto) 0.1 Baso # (Auto) 0.0 Abs Immat Gran (auto) 0.05 H Absolute Neuts (auto) 5.6 Absolute Nucleated RBC 0.000 Nucleated RBC % 0.0 Platelet Estimate Slightly decreased % Immature Plt Fraction 3.6 Hypochromasia 1+ Anisocytosis 1+ Schistocytes None seen Puncture Site Left radial ABG pH 7.388 ABG pCO2 61.2 H* ABG pO2 52.7 L ABG PO2/FiO2 Ratio 1.65 ABG HCO3 36.0 H ABG O2 Saturation 85.9 L* ABG O2 Content 12.5 L ABG Base Excess 9.4 A-a Gradient 103.9 Oxyhemoglobin 86.3 L* Total Hemoglobin 10.3 L O2 Delivery Device Bipap O2 Liters/Min Not Reportable FiO2 32 Expiratory Pressure Not Reportable Inspiratory Pressure Not Reportable Sodium 142 Potassium 3.6 Chloride 101 Carbon Dioxide > 40 H Anion Gap BUN 16 Creatinine 0.80 Estim Creat Clear Calc Not Reportable Estimated GFR > 60 Glucose 88 Calcium 8.5 Total Bilirubin 0.7 AST 26 ALT 20 Alkaline Phosphatase 80 NT-Pro-B Natriuret Pep Total Protein 6.0 L Albumin 3.1 L Procalcitonin TSH Free T4 Nasal MRSA (PCR)
--- NOTE | 2024-02-02 10:12 | PC.NURSE ---
pt is 95% on bipap while sleeping
[2024-02-02] MEDS: ACETAMINOPHEN 325 MG TABLET 650 MG PO (10:31)
--- NOTE | 2024-02-02 11:41 | PC.NURSE ---
Home RT rep is here to adjust her settings to match our bipap, will trial with home non invasive machine at [facility]
--- NOTE | 2024-02-02 15:29 | PC.NURSE ---
Addendum entered by Gina Wilkes RN 02/02/24 15:31: Pt is asymptomatic Original Note: [employer] cadet notified of low bp, she is on her way to assess the patient
[2024-02-02] MEDS: AZITHROMYCIN 500 MG/NS 250 ML 500 MG/250 ML BAG 250 MG IVPB (15:50)
[2024-02-02] MEDS: ALBUMIN HUMAN 25% 25 GM/100 ML 200 ML IVPB (15:51)
[2024-02-02] MEDS: traZODone HCL 50 MG TABLET PO (20:24)
[2024-02-02] MEDS: CITALOPRAM HYDROBROMIDE 20 MG TABLET PO (20:24)
[2024-02-02] MEDS: ATORVASTATIN 40 MG TABLET 80 MG PO (20:25)
[2024-02-02] MEDS: MIRTAZAPINE 15 MG TABLET PO (20:25)
[2024-02-02] MEDS: PRAMIPEXOLE 0.5 MG TABLET PO (20:25)
[2024-02-03] VITALS (28 sets, daily range): BP systolic 117–149; BP diastolic 62–119; PULSE 49–103; RESP 17–24; TEMP 36.4–37.2; O2SAT 91–96
--- NOTE | 2024-02-03 02:16 | PCRCNOTE ---
Pt doing sleep study.
[2024-02-03 05:11] LABS: Base Excess ABG 7.8 mEq/l (+/-2.0); Fractional Inspired Oxygen 40 %; HCO3 ABG 34.4 mEq/l (22.0-26.0); Oxygen Saturation ABG 94.1 % (95.0-100.0); Oxyhemoglobin 93.4 % THb (90.0-100.0); PO2 ABG 74.5 mmHg (80.0-100.0); PO2 FiO2 Ratio Arterial Blood 1.86 %; Total Hemoglobin 9.1 g/dL (12.0-18.0); pH ABG 7.366 (7.350-7.450)
[2024-02-03 05:18] LABS: Modified Allen's Test Pass; PCO2 ABG 61.5 mmHg (35.0-45.0); Site Drawn RIGHT RADIAL
[2024-02-03 05:19] LABS: Device OTHER DEVICE
[2024-02-03] MEDS: oxyCODONE HCL (*CRX) 5 MG TAB IR PO ×2 (05:50→20:05)
[2024-02-03 07:26] LABS: Basophils Percent Auto 0.2 % (0.2-1.2); Eosinophils Absolute Auto 0.2 K/mm3 (0-0.3); Eosinophils Percent Auto 2.2 % (0-4.4); Hematocrit 29.5 % (37.0-47.0); Hemoglobin 8.4 g/dL (12.0-15.0); Immature Granulocyte Absolute 0.04 K/mm3 (0.00-0.031); Immature Granulocyte Percent A 0.4 % (0-0.5); Immature Platelet Fraction Pct 4.1 % (0.9-11.2); Lymphocytes Absolute Auto 1.27 K/mm3 (0.9-3.2); Mean Corpuscular HGB Conc 28.5 g/dl (32-36); Mean Corpuscular Hemoglobin 28.5 pg (26-34); Monocytes Absolute Auto 0.6 K/mm3 (0.1-0.6); Monocytes Percent Auto 6.4 % (2.6-8.5); Neutrophils Percent Auto 76.8 % (45.5-73.1); Platelet Count Result 124 k/mm3 (150-375); Red Blood Count 2.95 M/mm3 (4.2-5.4); Red Cell Distribution Width 16.7 % (11.5-14.5); White Blood Count 9.1 K/mm3 (4.5-10.0)
[2024-02-03 07:37] LABS: Alanine Aminotransferase 16 U/L (6-35); Albumin Level 3.5 g/dL (3.5-5.1); Alkaline Phosphatase 63 U/L (38-126); Aspartate Amino Transferase 19 U/L (14-36); Bilirubin,Total 0.7 mg/dL (0.2-1.3); Blood Urea Nitrogen 20 mg/dL (7-17); Calcium 8.5 mg/dL (8.4-10.2); Carbon Dioxide > 40 mmol/L (22-30); Chloride 99 mmol/L (98-107); Estimated Glomerular Filt Rate 59; Glucose 98 mg/dL (65-110); Sodium 143 mmol/L (137-145)
[2024-02-03 07:53] LABS: Hypochromasia 1+; Microcytosis 1+ (NORMAL); Platelet Estimate Decreased (Adequate); Schistocytes None Seen
[2024-02-03] MEDS: BUDESONIDE RESPULE NEB 0.5 MG/2 ML AMP INHALATION ×2 (08:06→20:10)
[2024-02-03] MEDS: IPRATROPIUM 0.5 MG/ALBUTEROL SULFATE 2.5 MG AMPUL.NEB 3 ML NEBULIZE ×3 (08:06→20:10)
--- NOTE | 2024-02-03 08:57 | PM.PNPUL ---
Progress Note: A&P Assessment and Plan (1) COPD (chronic obstructive pulmonary disease): Code(s): J44.9 - Chronic obstructive pulmonary disease, unspecified Status: Acute Assessment and Plan: Regarding her COPD: 35 pack year tobacco, quit 8-10 years ago, chronic hypoxemic respiratory failure wearing 1 L at rest, 2 L with activity and 2 L sleep. Chronic hypercarbic respiratory failure on noninvasive ventilation with the AVAPS AE mode and 2 L bleed in. previously followed at [place] Last office visit note 02/18/2023. Severe COPD per PFT in 2016. she was not interested in pulmonary rehabilitation. She is current on all her vaccines. Continue trilogy 100, albuterol inhaler nebulized rescue. 3 L with activity, 1 L at rest and 2 L at night. Noncompliant with CPAP and uninterested in restudy or trouble shooting. 02/01/24: patient has a few end-expiratory expiratory wheezes today. She has no increase in her phlegm production she does have worsening dyspnea on exertion. Plan: I will change the patient from her inhaled trilogy to nebulized DuoNebs q.6 hours and nebulized budesonide 500 mcg q.12 hours. Patient also has difficulty expectorating and I will add guaifenesin 1200 mg p.o. b.i.d.. I will add a Cornet flutter valve q.4 hours while awake. I will send an alpha 1 anti trypsin genotype on 02/01. 02/02/2024: Overall the patient tells me she is doing better than yesterday although she cannot quantitate this and can not tell me what is better. She still says she has some labored breathing. Her cough is the same and she says it is dry although loose. The patient does not know if she slept last night with the noninvasive ventilator on. She does remember being cold last night. White blood cell count 7.8, creatinine 0.8. Plan: Continue DuoNebs q.6 hours and nebulized budesonide 500 mcg q.12 hours. Continue guaifenesin 1200 mg p.o. b.i.d. and continue Cornet flutter valve q.4 hours while awake and EzPAP treatment for atelectasis. 02/03/24: Patient tells me she feels better today although she can not tell me why she feels better her what symptoms are better. Overall she complained she is weak but has no shortness of breath at rest. She states her breathing is better. yesterday she walked 10 feet and she said she got weak but not short of breath. Physical therapy note states unsteady gait due to intermittent tremors -shaking during gait. Saturations 95% prior to gait at rest decreased to 87 following gait and recovered to 90s with rest. Patient is currently on 5 L nasal cannula saturations 91%. Plan: Continue DuoNebs q.6 and nebulized budesonide 500 q.12, guaifenesin 1200, Cornet flutter valve and EzPAP. Discussed with Gina Pelayo, will follow with you. (2) Pneumonia: Qualifiers: Laterality: left Lung location: lower lobe of lung Pneumonia type: due to unspecified organism Qualified Code(s): J18.9 - Pneumonia, unspecified organism Code(s): J18.9 - Pneumonia, unspecified organism Status: Acute Assessment and Plan: Discharged from [facility] on 12/10/2019 for status post vancomycin and cefepime for pneumonia. Discharged on Augmentin. Readmitted 12/28 with PE and treated for pneumonia with cefepime and vanco. Also treated for COPD exacerbation with Solu-Medrol and DuoNebs. Transition to azithromycin. Discharged to rehabilitation center and then to assisted living at [place] on no antibiotics on 01/22/2024. 02/01/24: currently the patient was readmitted with weakness of the arms and legs and worsening shortness of breath. She has persistent cough that is unchanged from 12/29/2023 with no increased phlegm production or chest pain. Her admission white blood cell count was 11.3. She has been afebrile. She has been treated with ceftriaxone and azithromycin since 01/30/2024. Review of her imaging on 01/30/2024 demonstrates small lung volumes with left lower lobe infiltrate and compared to 01/17/2024 the right lower lobe and left lower infiltrates are improved. Blood cultures are negative. COVID influenza and RSV RT PCR study are negative. Plan: I will continue ceftriaxone and azithromycin, day 3. I will send a MRSA nasal swab. I will send a extended respiratory pathogen panel. I will order CTA of the chest to reassess infiltrates. Overall my clinical suspicion for bacterial pneumonia is low and I will not broaden her antibiotic coverage at this time. Urine Legionella, urine pneumococcal studies pending. I will send a mycoplasma IgM on 02/02/2024. 02/02/24: Patient is afebrile. White blood cell count 7.8, procalcitonin 0.1 yesterday, CT scan with diffuse interstitial alveolar infiltrates with some atelectasis but no focal infiltrates suggesting pneumonia. MRSA swab negative. Plan: Patient is on day 4 ceftriaxone and azithromycin. Will plan to finish 5 day treatment. Blood cultures negative time 2. Urine Legionella, urine pneumococcal, serum mycoplasma IgM and respiratory pathogen panel pending. 02/03/24: Patient still has dry cough but this is improving. Afebrile. White blood cell count 9.1. Plan: Day 5 ceftriaxone and azithromycin and will discontinue after today. Blood culture negative. Urine Legionella, pneumococcal and serum IgM, and respiratory pathogen panel pending. (3) Chronic respiratory failure with hypoxia and hypercapnia: Code(s): J96.11 - Chronic respiratory failure with hypoxia; J96.12 - Chronic respiratory failure with hypercapnia Status: Acute Assessment and Plan: Patient with COPD and history of chronic hypercarbic and hypoxemic respiratory failure and prescribed noninvasive ventilation with the AVAPS AE mode with respiratory rate auto, tidal volume 350, EPAP 5, maximum EPAP 10. Minimum pressure support 5, maximum pressure support 10 With 2 L bleed in on 10/30/2023. Patient tells me she has been wearing a fullface mask with this new machine at [facility]. Download from [employer] from 01/03/2024 through 02/01/2024. Patient is on noninvasive ventilator with the Belinda machine with a T TV-VAPS-AE mode. rate is auto. Tidal volume 350. EPAP minimum 5, EPAP maximum 10, pressure support minimum 5, pressure support maximum 12. % of days with usage greater than or equal to 4 hours is 67%. Average usage on days used is 5 hours and 50 minutes. Weekly average respiratory rate median 12-16. Weekly average tidal volume median 350-400. Weekly average EPAP 7.5. Weekly average IPAP 15.5-16. Weekly average unintentional leak 2.5-25 weekly average minute ventilation 4-6. I interpret this download as suboptimal compliance, low tidal volume and acceptable leak. Plan: I will place the patient on a hospital noninvasive ventilator with the AVAPS mode with a rate of 14, tidal volume 450, EPAP 7, minimal inspiratory pressure 8, maximal inspiratory pressure 25, I-time of 1, rise of 3 and 32% FiO2. I will obtain an ABG prior to removal and an overnight oximetry. Patient wore the hospital noninvasive ventilator with the AVAPS mode rate of 14, tidal volume 450, EPAP 7, minimal inspiratory pressure 8, maximal inspiratory pressure 25, Inspiratory time 1.0, rise of 1 and 32% FiO2. ABG prior to removal of the mask was 7.39/61/53. Patient had an overnight oximetry on these studies with recording duration of 6 hours and 28 minutes. Average saturation 89%. Low saturation 83%. Time with saturation less than or equal to 88% was 122 minutes, oxygen desaturation index 8.9. Her weight today is 71.5 with an admission weight of 67.3. Plan: we will call via [employer] [facility] [place], to determine if they can change her Belinda home noninvasive ventilator to a rate of 18, tidal volume 500, EPAP minimum 5, EPAP maximum 10, pressure support minimum 5, pressure support maximum [address] her on 5 L bleed in. Will repeat overnight oximetry an ABG in the morning prior to removal on her home machine if this can be arranged. If the changes to the home machine cannot be arranged will place on hospital AVAPS with a rate of 14, tidal volume 500, EPAP 7, minimal inspiratory pressure 8, maximal inspiratory pressure 25, inspiratory time 1.0, Rise of 1 and 40%. 02/03/24: Patient wore the home Belinda through via [employer] [facility] [place] with settings rate of 14, tidal volume 500, EPAP minimum 5, EPAP maximum 10, pressure support minimum 5, pressure support maximum 25 with 5 L bleed in. The patient said she did well with a fullface mask and that it was comfortable and she slept. ABG prior to removal was 7.37/62/75. Overnight oximetry on these settings with recording duration of 7 hours and 32 minutes. Average saturation 93%. Low saturation 87%. Time with saturation less than or equal to 88% was 7 minutes. Oxygen desaturation 0.6. Plan: Current home ventilator settings provide adequate but not optimal minute ventilation and I will increase her respiratory rate to 20. Patient hypoxic on 5 L bleed in will place on 6 L bleed in. Will obtain overnight oximetry and ABG in the morning. (4) Pulmonary embolism: Code(s): I26.99 - Other pulmonary embolism without acute cor pulmonale Status: Acute Assessment and Plan: Patient with a CT angiogram of the chest on 12/29/2023 with small non filling defects in the left lower lobe. Patient placed on Eliquis. 02/01/24: Plan: I will repeat a CT angiogram of the chest today to reassess filling defects in left lower lobe and to assess for new pulmonary emboli. Continue Eliquis 5 p.o. b.i.d. Later in the day CT scan angiogram of the chest with no PE. 02/02/24: Continue Eliquis 5 p.o. b.i.d. (5) Pulmonary hypertension: Code(s): I27.20 - Pulmonary hypertension, unspecified Status: Acute Assessment and Plan: Regarding her pulmonary hypertension. Patient had an echocardiogram on 06/12/2023 with LVEF 82%, diastolic dysfunction, mild aortic regurgitation, mild mitral regurgitation, mild tricuspid regurgitation with an RVSP of 45. echocardiogram on 10/28/2023 with LVEF greater than 70, grade 1 diastolic dysfunction, RV size and function were normal, right atrial size was normal. PASP 67. Echocardiogram 12/30/2023: LVEF greater than 70, grade 1 diastolic dysfunction, right ventricular moderately enlarged with normal function. Severe left atrial enlargement. Severely enlarged right atrial enlargement, PASP 66. Etiology of pulmonary hypertension and includes: Severe COPD with chronic hypercarbic and hypoxemic respiratory failure, pulmonary embolism, untreated obstructive sleep apnea and diastolic dysfunction. 02/01/24: plan: Repeat echocardiogram ordered. Continue treatment for COPD, pulmonary embolism, obstructive sleep apnea, AFIB and diastolic dysfunction. Later in the day a limited echocardiogram was performed with no Doppler. Moderate concentric LVH with vigorous systolic function. Right ventricular chamber was normal. Right atrial chamber normal. No PASP measured. 02/02/24: Echocardiogram did not reassess pulmonary pressures. Plan: Will continue to optimize COPD with chronic hypercarbic and hypoxemic respiratory failure, continue treatment for PE, noninvasive ventilation will treat obstructive sleep apnea. Patient with mildly elevated BNP, CT scan of the chest with evidence of congestion and low blood pressure. Ideally would aggressively diurese patient for the possibility of fluid overload but at this time we are limited by low blood pressure. This morning the patient received her home dose of amlodipine 5 an Lasix 20 p.o.. If she can tolerate more aggressive diuresis would recommend this. Cardiology and hospitalist managing diuretics. 02/03/24: Continue to optimize COPD with chronic hypercarbic and hypoxemic respiratory failure as above, continue treatment for PE, optimize noninvasive ventilation for COPD and obstructive sleep apnea as above. Blood pressure low yesterday given albumin. Weight today is 71.9 with an admission weight of 67.3. Plan: Patient with low blood pressure limiting diuresis. Amlodipine on hold. agree with diuresis as tolerated by cardiac and renal systems per hospitalist and Cardiology teams. Subjective Date/time seen: 02/03/24 08:57 Interval history: 02/01/2024: This is a new pulmonary consult for pulmonary hypertension. 89-year-old with a history of hypertension, hyperlipidemia, obesity, atrial fibrillation on anticoagulation, tremor, COPD on home oxygen 1 L at rest, 2 L with activity and 2 L on her home noninvasive ventilator with AVAPS AE mode. Regarding her COPD: 35 pack year tobacco, quit 8-10 years ago, previously followed at [place] Last office visit note 02/18/2023. Severe COPD per PFT in 2016. she was not interested in pulmonary rehabilitation. She is current on all her vaccines. Continue trilogy 100, albuterol inhaler nebulized rescue. 3 L with activity, 1 L at rest and 2 L at night. Noncompliant with CPAP and uninterested in restudy or trouble shooting. Regarding her pulmonary hypertension. Patient had an echocardiogram on 06/12/2023 with LVEF 82%, diastolic dysfunction, mild aortic regurgitation, mild mitral regurgitation, mild tricuspid regurgitation with an RVSP of 45. echocardiogram on 10/28/2023 with LVEF greater than 70, grade 1 diastolic dysfunction, RV size and function were normal, right atrial size was normal. PASP 67. Echocardiogram 12/30/2023: LVEF greater than 70, grade 1 diastolic dysfunction, right ventricular moderately enlarged with normal function. Severe left atrial enlargement. Severely enlarged right atrial enlargement, PASP 66. Patient previously seen by Pulmonary for COPD with chronic hypercarbic and hypoxemic respiratory failure and VBG on 2 L nasal cannula 7.30/78/ less than 27. Prescribed a home noninvasive ventilator with the AVAPS AE mode on 10/30/2023. 35 pack year tobacco use, quit 8-10 years ago. Maintained on [facility] 10/30/2023: Default settings; height is 1.38 m, wt 68.8 kg. BMI 35.9 kg/m2 Primary settings : AVAPS-AE with Target Tidal Volume TV 350 ml, RR( intentionally left blank) Max pressure 20; PS Min 5; PS Max 10; EPAP Min 5; EPAP Max 10. Bleed in 2 L/min with sleep This form was faxed to [employer] [phone] to [employer] who worked with us to provide equipment for this patient. Plan is for this to be set up at [facility] 10/29 today, with discharge planned for today. Recently admitted for weakness and treated for aspiration pneumonia, CT angiogram of the chest showed small nonocclusive filling defects left lower lobe with low clot burden. She was treated with antibiotics. She had a swallow study with laryngeal penetration and aspiration with continued speech therapy and on 01/21/2024 she was tolerated thin ice water after doing She was discharged to rehabilitation center And discharged back to [facility] on 01/22/2024. Patient stated she was doing well on 01/28/2024 but on 01/28 she was weak. On 01/30/24 she could not walk because she had weak arms and legs and she had worsening shortness of breath. She presented to the emergency department. Patient states her persistent cough since her admission on 12/29/2023 was unchanged. She denied fever, chills, chest pain, hemoptysis. She has minimal production of phlegm. In the emergency department her white blood cell count was 11.3 with 0.6% eosinophils, creatinine was 1.2, BNP was 504, COVID influenza and RSV RT PCR studies were negative. Chest x-ray on 01/29 demonstrated left lower lobe infiltrate with improved right and left lower lobe infiltrates from 01/17/2024. She was admitted to the hospital and treated for pneumonia with ceftriaxone and azithromycin. 01/31/24: she was hypotensive required 1 L IV fluids. She was placed on auto PAP at night. Her procalcitonin was 0.1. 02/01/24: Today is she tells me that her dyspnea on exertion is the same since admission, she states that her cough and phlegm production or unchanged since admission she denies any lower extremity swelling or chest pain. She is afebrile. White blood cell count 8.5, creatinine 0.8. Later in the day CT angiogram of the chest with no PE, mild interstitial alveolar infiltrates with minimal effusions consistent with congestion. 02/02/2024: Overall the patient tells me she is doing better than yesterday although she cannot quantitate this and can not tell me what is better. She still says she has some labored breathing. Her cough is the same and she says it is dry although loose. The patient does not know if she slept last night with the noninvasive ventilator on. She does remember being cold last night. White blood cell count 7.8, creatinine 0.8. Patient wore the hospital noninvasive ventilator with the AVAPS mode rate of 14, tidal volume 450, EPAP 7, minimal inspiratory pressure 8, maximal inspiratory pressure 25, Inspiratory time 1.0, rise of 1 and 32% FiO2. ABG prior to removal of the mask was 7.39/61/53. Patient had an overnight oximetry on these studies with recording duration of 6 hours and 28 minutes. Average saturation 89%. Low saturation 83%. Time with saturation less than or equal to 88% was 122 minutes, oxygen desaturation index 8.9. Her weight today is 71.5 with an admission weight of 67.3. 02/03/24: Patient tells me she feels better today although she can not tell me why she feels better her what symptoms are better. Overall she complained she is weak but has no shortness of breath at rest. She states her breathing is better. yesterday she walked 10 feet and she said she got weak but not short of breath. Physical therapy note states unsteady gait due to intermittent tremors -shaking during gait. Saturations 95% prior to gait at rest decreased to 87 following gait and recovered to 90s with rest. Patient is currently on 5 L nasal cannula saturations 91%. Weight today is 71.9 with an admission weight of 67.3. Patient wore the home Belinda through via [employer] [facility] [place] with settings rate of 14, tidal volume 500, EPAP minimum 5, EPAP maximum 10, pressure support minimum 5, pressure support maximum 25 with 5 L bleed in. The patient said she did well with a fullface mask and that it was comfortable and she slept. ABG prior to removal was 7.37/62/75. Overnight oximetry on these settings with recording duration of 7 hours and 32 minutes. Average saturation 93%. Low saturation 87%. Time with saturation less than or equal to 88% was 7 minutes. Oxygen desaturation 0.6. Blood pressure low yesterday given albumin. DATA: 02/01/24: Clinical Indication: Pulmonary embolus CT Scan of the Chest with Contrast: Technique: Contiguous sections were acquired throughout the chest after intravenous administration of 100 cc of Omnipaque 350. Dose reduction technique was used on this scan by utilizing automated exposure control and iterative reconstruction technique. The dose-length product (DLP) was 623.41 mGy-cm. Findings: There is no evidence of any significant mediastinal, hilar or axillary lymphadenopathy. There is no filling defect in the pulmonary arterial tree to suggest pulmonary embolus. There is no evidence of aortic dissection or aneurysm. No pericardial effusion. There are minimal bilateral pleural effusions, with bibasilar atelectatic change, right worse than left. There is probable interstitial edema.. Probable minimal patchy groundglass pulmonary edema as well. Images through the upper abdomen reveal moderate to large hiatal hernia. Question mild cirrhotic morphology of liver. T12 vertebroplasty noted. Moderate to severe compression fracture of L1 noted. There is mild compression fracture of T11. Impression: No evidence of pulmonary embolus, aortic dissection, or aortic aneurysm. Mild mixed alveolar and interstitial pulmonary edema. Minimal pleural effusions with probable bibasilar/dependent atelectatic change, right worse than left. Correlate clinically for pneumonia. Compression fractures, as above. Questionable mild cirrhotic change of the liver. Correlate clinically and with LFTs. 12/30/23: Summary 1. Left ventricular chamber dimension is normal. 2. Left ventricular systolic function is hyperdynamic, estimated at >70%. 3. There is mildly increased left ventricular wall thickness. 4. The left ventricular diastolic function is grade I diastolic dysfunction. 5. Right ventricular chamber dimension is moderately enlarged. 6. Right ventricular systolic function is normal. 7. Left atrial chamber dimension is severely enlarged. 8. Right atrial chamber dimension is severely enlarged. 9. There is mild to moderate tricuspid valve regurgitation. 10. Estimated pulmonary arterial systolic pressure is 66 mmHg. Right Ventricle Right ventricular chamber dimension is moderately enlarged. Right ventricular systolic function is normal. Right Atria Right atrial chamber dimension is severely enlarged. Atrial Septum Intact interatrial septum visualized by color flow imaging. 12/29/23: EXAMINATION: CTA chest PE protocol INDICATION: hypoxia, SHERON COMPARISON: X-ray chest, same date; CT chest 03/03/2022; CT abdomen pelvis 09/02/2023. FINDINGS: Lung parenchyma and airways: Segmental consolidation in the dependent portions of the bilateral lower lobes and right middle lobe. Patent airways. Pleura: Small left pleural fluid collection. Thoracic inlet, axillae and chest wall: Unremarkable. Thoracic aorta: Mild thoracic aortic ectasia. Moderate atherosclerotic calcifications. No dissection. Mediastinum: Moderate enlarged subcarinal and bilateral hilar lymph nodes. Hiatal hernia. Patulous esophagus. Heart and pericardium: Left ventricular hypertrophy. RV/LV ratio 1.5. Coronary artery calcifications: Moderate. Upper abdomen: Multiple hepatic hypodensities, likely representing cysts. Multiple stable pancreatic cysts. Multiple stable renal cysts. Bones: No acute osseous finding. Multiple stable compression deformities in the thoracolumbar junction. Vertebroplasty cement at T12 Pulmonary arteries: Study quality: Adequate. Small nonocclusive filling defects in several left lower lobe segmental arteries. IMPRESSION: Small nonocclusive filling defects in several left lower lobe segmental arteries. Low clot burden. The RV/LV ratio is 1.5 but this may be confounded by left ventricular hypertrophy. No septal bowing or significant hepatic vein reflux. Segmental right middle lobe and bilateral lower lobe dependent consolidations, concerning for pneumonia. Aspiration should be considered in the differential. Small left pleural effusion. Subcarinal and bilateral hilar lymphadenopathy. 10/28/23: Echo Summary 1. Left ventricular chamber dimension is normal. 2. Left ventricular systolic function is hyperdynamic, estimated at >70%. 3. There is mildly increased left ventricular wall thickness. 4. The left ventricular diastolic function is grade I diastolic dysfunction. 5. Right ventricular systolic function is normal. 6. Left atrial chamber dimension is severely enlarged. 7. There is mild mitral valve regurgitation. 8. There is mild tricuspid valve regurgitation. Right Ventricle Right ventricular chamber dimension is normal. Right ventricular systolic function is normal. Right Atria Right atrial chamber dimension is normal. Review of Systems Constitutional: Constitutional: Reports no additional constitutional complaints Eyes: Eyes: Reports no additional eye complaints ENT: Reports system reviewed and no additional complaints, except as documented Cardiovascular: Cardiovascular: Reports no additional cardiovascular complaints Respiratory: Respiratory: Reports no additional respiratory complaints Gastrointestinal: Gastrointestinal: Reports no additional gastrointestinal complaints Musculoskeletal: Musculoskeletal: Reports no additional musculoskeletal complaints Neurologic: Reports system reviewed and no additional complaints, except as documented Psychiatric: Psychiatric: Reports no additional psychiatric complaints Endocrine: Endocrine: Reports no additional endocrine complaints Hematologic/Lymphatic: Hematologic/Lymphatic: Reports no additional hematologic/lymphatic complaints Allergic/Immunologic: Allergic/Immunologic: Reports no additional allergic/immunologic complaints Exam Const: General: cooperative, healthy appearing and comfortable Orientation/consciousness: oriented to person, oriented to place and oriented to time HENMT: Head: normal to inspection Ears: hearing grossly normal bilaterally Eyes: General: appearance normal, both eyes and all related structures Neck: Neck: normal visual inspection Chest: Chest palpation & inspection: normal inspection of the chest Resp: Effort & Inspection: normal respiratory effort and able to speak in complete sentences Auscultation: crackles, no rales, no rhonchi, wheezes and lung sounds not diminished Other: 02/01 Bilateral inspiratory and expiratory squeaks and crackles 02/02 Unchanged bilateral inspiratory and expiratory squeaks and crackles. Cardio: Jugular venous distension: no JVD GI: Inspection: normal to inspection Skin: General skin exam: normal color Neuro: General: oriented to person, oriented to place and oriented to time Extrem: General: normal to inspection Psych: Appearance: grossly normal Objective Data Vital Signs Vital Signs: Vital Signs - 24 hr 02/02/24 09:37 02/02/24 11:16 02/02/24 12:00 Temperature 36.7 C Pulse Rate 70 94 Respiratory Rate 18 15 Blood Pressure 125/80 Pulse Oximetry 90 94 Oxygen Delivery BiPAP Oxygen Flow Rate Fraction of Inspired Oxygen 02/02/24 12:00 02/02/24 09:15 02/02/24 13:26 Temperature Pulse Rate 96 Respiratory Rate 24 H Blood Pressure Pulse Oximetry 92 93 Oxygen Delivery Nasal Cannula BiPAP Nasal Cannula Oxygen Flow Rate 4.5 4.5 Fraction of Inspired Oxygen 55 02/02/24 13:26 02/02/24 13:36 02/02/24 15:02 Temperature Pulse Rate 81 86 69 Respiratory Rate 20 20 Blood Pressure Pulse Oximetry 93 Oxygen Delivery BiPAP Oxygen Flow Rate Fraction of Inspired Oxygen 40 02/02/24 15:20 02/02/24 16:00 02/02/24 16:00 Temperature 36.7 C Pulse Rate 68 67 67 Respiratory Rate 17 Blood Pressure 68/42 L Pulse Oximetry 90 91 Oxygen Delivery BiPAP Oxygen Flow Rate Fraction of Inspired Oxygen 40 02/02/24 17:09 02/02/24 19:23 02/02/24 19:23 Temperature Pulse Rate 82 80 Respiratory Rate 22 H 22 H Blood Pressure Pulse Oximetry 92 92 Oxygen Delivery BiPAP Nasal Cannula Oxygen Flow Rate 4.5 Fraction of Inspired Oxygen 40 02/02/24 19:34 02/02/24 19:55 02/02/24 20:00 Temperature 36.7 C Pulse Rate 80 81 81 Respiratory Rate 22 H 17 17 Blood Pressure 124/96 H Pulse Oximetry 90 91 Oxygen Delivery Nasal Cannula Oxygen Flow Rate 5 Fraction of Inspired Oxygen 02/02/24 20:00 02/02/24 21:50 02/02/24 23:48 Temperature 36.8 C Pulse Rate 81 86 65 Respiratory Rate 16 17 Blood Pressure 97/52 L Pulse Oximetry 92 93 Oxygen Delivery Autopap Oxygen Flow Rate Fraction of Inspired Oxygen 02/03/24 00:00 02/03/24 00:00 02/03/24 02:00 Temperature Pulse Rate 65 66 62 Respiratory Rate 17 Blood Pressure Pulse Oximetry 93 Oxygen Delivery Autopap Oxygen Flow Rate Fraction of Inspired Oxygen 40 02/03/24 04:00 02/03/24 05:15 02/03/24 06:00 Temperature 36.4 C Pulse Rate 70 75 79 Respiratory Rate 17 Blood Pressure 124/81 Pulse Oximetry 95 Oxygen Delivery Oxygen Flow Rate Fraction of Inspired Oxygen 02/03/24 08:09 02/03/24 08:17 02/03/24 08:00 Temperature 36.6 C Pulse Rate 88 84 Respiratory Rate 20 22 H Blood Pressure 141/99 H Pulse Oximetry 91 96 Oxygen Delivery Nasal Cannula Oxygen Flow Rate 5 Fraction of Inspired Oxygen 02/03/24 08:37 Temperature Pulse Rate 85 Respiratory Rate 18 Blood Pressure Pulse Oximetry Oxygen Delivery Oxygen Flow Rate Fraction of Inspired Oxygen Intake/Output Intake/Output: Intake & Output 01/31/24 02/01/24 02/02/24 02/03/24 23:59 23:59 23:59 23:59 Intake Total 1242 1270 1571 462 Output Total 950 Balance 1242 1270 621 462 Meds/Results Medications: Active Medications Generic Name Dose Route Start Last Admin Trade Name Freq PRN Reason Stop Dose Admin Acetaminophen 650 mg 01/31/24 12:16 02/02/24 10:31 Acetaminophen 325 Mg Tablet PO 650 mg Q4H PRN Administration Pain Albuterol 2.5 mg 01/30/24 16:38 02/01/24 08:18 Albuterol Sulfate Neb 2.5 Mg/3 Ml Inh INHALATION 2.5 mg Q8H PRN Administration wheezing Albuterol/Ipratropium 3 ml 02/01/24 14:00 02/03/24 08:06 Ipratropium 0.5 Mg/Albuterol Sulfate 2.5 Mg Ampul.Neb 3 Ml NEBULIZE 3 ml Q6HRT MASTER Administration Amlodipine Besylate 5 mg 01/31/24 09:00 02/02/24 08:08 Amlodipine Besylate 5 Mg Tablet PO 5 mg DAILY MASTER Administration Apixaban 5 mg 01/30/24 17:00 02/02/24 16:56 Apixaban 5 Mg Tablet PO 5 mg BID MASTER Administration Aripiprazole 2 mg 01/31/24 09:00 02/02/24 08:09 Aripiprazole 2 Mg Tablet PO 2 mg DAILY MASTER Administration Atorvastatin Calcium 80 mg 01/30/24 21:00 02/02/24 20:25 Atorvastatin 40 Mg Tablet PO 80 mg HS MASTER Administration Bisacodyl 5 mg 01/30/24 16:38 Bisacodyl 5 Mg Tablet Ec PO DAILY PRN constipation Budesonide 0.5 mg 02/01/24 20:00 02/03/24 08:06 Budesonide Respule Neb 0.5 Mg/2 Ml Amp INHALATION 0.5 mg Q12HRT MASTER Administration Citalopram Hydrobromide 20 mg 01/30/24 21:00 02/02/24 20:24 Citalopram Hydrobromide 20 Mg Tablet PO 20 mg QHS MASTER Administration Docusate Sodium 100 mg 01/30/24 17:00 02/02/24 16:57 Docusate Sodium 100 Mg Capsule PO Not Given BID MASTER Ferrous Sulfate 325 mg 02/01/24 09:00 02/01/24 10:03 Ferrous Sulfate [address] PO 325 mg Q48H MASTER Administration Furosemide 20 mg 01/31/24 09:00 02/02/24 08:03 Furosemide 20 Mg Tablet PO 20 mg DAILY MASTER Administration Furosemide 20 mg 02/03/24 09:00 Furosemide Inj 40 Mg/4 Ml Vial IV PUSH DAILY MASTER Guaifenesin 1,200 mg 02/01/24 10:10 02/02/24 20:25 Guaifenesin 12 Hr 600 Mg Tabcr PO 1,200 mg Q12HR MASTER Administration Ceftriaxone Sodium 1 gm in 50 mls @ 100 mls/hr 01/31/24 16:00 02/02/24 15:44 Rocephin 1 Gm/Ns 50 Ml IVPB 02/03/24 23:59 Infused Q24H MASTER Infusion Azithromycin 500 mg in 250 mls @ 250 mls/hr 01/31/24 16:00 02/02/24 16:50 Zithromax IVPB 02/03/24 23:59 Infused Q24H MASTER Infusion Memantine 5 mg 01/30/24 21:00 02/02/24 20:25 Memantine 5 Mg Tablet PO 5 mg Q12HR MASTER Administration Mirtazapine 15 mg 01/30/24 21:00 02/02/24 20:25 Mirtazapine 15 Mg Tablet PO 15 mg HS MASTER Administration Oxycodone HCl 5 mg 01/30/24 16:38 02/03/24 05:50 Oxycodone Hcl (*Crx) 5 Mg Tab Ir PO 5 mg Q4H PRN Administration Pain Rated 4-6 Pantoprazole Sodium 40 mg 01/31/24 09:00 02/02/24 08:08 Pantoprazole 40 Mg Tablet PO 40 mg QAM MASTER Administration Perflutren Lipid Microsphere 0 ml 02/01/24 09:54 Perflutren Lipid Microspheres 1.5 Ml Vial Diluted To 10 Ml Total Volume IV PUSH 02/04/24 09:54 ONCE PRN adequate visualization Protocol Polyethylene Glycol 17 gm 01/30/24 16:38 02/01/24 10:18 Polyethylene Glycol 3350 17 Gm Powd.Pack PO 17 gm QAM PRN Administration Constipation Pramipexole Dihydrochloride 0.5 mg 01/30/24 21:00 02/02/24 20:25 Pramipexole 0.5 Mg Tablet PO 0.5 mg HS MASTER Administration Pregabalin 100 mg 01/30/24 21:00 02/02/24 20:25 Pregabalin (*Crx) 50 Mg Capsule PO 100 mg Q12HR MASTER Administration Trazodone HCl 50 mg 01/30/24 21:00 02/02/24 20:24 Trazodone Hcl 50 Mg Tablet PO 50 mg HS MASTER Administration Vitamin D 1,000 units 01/31/24 09:00 02/02/24 08:03 Cholecalciferol 1,000 Units Tablet PO 1,000 units DAILY MASTER Administration Radiology Results: ITS Impressions Chest CTA 02/01/24 12:08 Impression: No evidence of pulmonary embolus, aortic dissection, or aortic aneurysm. Mild mixed alveolar and interstitial pulmonary edema. Minimal pleural effusions with probable bibasilar/dependent atelectatic change, right worse than left. Correlate clinically for pneumonia. Compression fractures, as above. Questionable mild cirrhotic change of the liver. Correlate clinically and with LFTs. Chest X-Ray 02/02/24 08:37 IMPRESSION: Bibasilar pneumonia. Pulmonary edema versus pneumonitis bilaterally. Sliding hiatus hernia. Labs Labs: Laboratory Results - last 24 hr 02/03/24 02/03/24 04:53 07:09 WBC 9.1 RBC 2.95 L Hgb 8.4 L Hct 29.5 L MCV 100.0 MCH 28.5 MCHC 28.5 L RDW 16.7 H Plt Count 124 L MPV 10.0 Immature Gran % (Auto) 0.4 Neut % (Auto) 76.8 H Lymph % (Auto) 14.0 L [place] % (Auto) 6.4 Eos % (Auto) 2.2 Baso % (Auto) 0.2 Lymph # (Auto) 1.27 [place] # (Auto) 0.6 Eos # (Auto) 0.2 Baso # (Auto) 0.0 Abs Immat Gran (auto) 0.04 H Absolute Neuts (auto) 7.0 H Absolute Nucleated RBC 0.000 Nucleated RBC % 0.0 Platelet Estimate Decreased % Immature Plt Fraction 4.1 Hypochromasia 1+ Microcytosis 1+ Schistocytes None seen Puncture Site Right radial ABG pH 7.366 ABG pCO2 61.5 H* ABG pO2 74.5 L ABG PO2/FiO2 Ratio 1.86 ABG HCO3 34.4 H ABG O2 Saturation 94.1 L ABG O2 Content 12.0 L ABG Base Excess 7.8 A-a Gradient 140.0 Oxyhemoglobin 93.4 Total Hemoglobin 9.1 L O2 Delivery Device Other device O2 Liters/Min 5.0 FiO2 40 Sodium 143 Potassium 4.0 Chloride 99 Carbon Dioxide > 40 H Anion Gap BUN 20 H Creatinine 0.90 Estim Creat Clear Calc Not Reportable Estimated GFR 59 Glucose 98 Calcium 8.5 Total Bilirubin 0.7 AST 19 ALT 16 Alkaline Phosphatase 63 Total Protein 6.0 L Albumin 3.5
[2024-02-03] MEDS: PREGABALIN (*CRX) 50 MG CAPSULE 100 MG PO ×2 (09:16→20:04)
[2024-02-03] MEDS: DOCUSATE SODIUM 100 MG CAPSULE PO ×2 (09:16→16:21)
[2024-02-03] MEDS: guaiFENesin 12 HR 600 MG TABCR 1200 MG PO ×2 (09:17→20:04)
[2024-02-03] MEDS: FERROUS SULFATE 325 MG TABLET DR PO (09:17)
[2024-02-03] MEDS: MEMANTINE 5 MG TABLET PO ×2 (09:18→20:04)
[2024-02-03] MEDS: CHOLECALCIFEROL 1,000 UNITS TABLET 1000 UNITS PO (09:18)
[2024-02-03] MEDS: ARIPiprazole 2 MG TABLET PO (09:18)
[2024-02-03] MEDS: PANTOPRAZOLE 40 MG TABLET PO (09:18)
[2024-02-03] MEDS: APIXABAN 5 MG TABLET PO ×2 (09:18→16:21)
[2024-02-03] MEDS: FUROSEMIDE INJ 40 MG/4 ML VIAL 20 MG IV PUSH (16:19)
[2024-02-03 16:33] LABS: Pneumococcal Antigen Urine DETECTED
[2024-02-03] MEDS: AZITHROMYCIN 500 MG/NS 250 ML 500 MG/250 ML BAG 250 MG IVPB (16:48)
[2024-02-03] MEDS: ACETAMINOPHEN 325 MG TABLET 650 MG PO (17:10)
[2024-02-03] MEDS: ALBUTEROL SULFATE NEB 2.5 MG/3 ML INH INHALATION (17:11)
--- NOTE | 2024-02-03 17:58 | P.PNIM_ITS ---
Progress Note: A&P Assessment and Plan (1) Pneumonia: Qualifiers: Laterality: left Lung location: lower lobe of lung Pneumonia type: due to unspecified organism Qualified Code(s): J18.9 - Pneumonia, unspecified organism Code(s): J18.9 - Pneumonia, unspecified organism Status: Acute Assessment and Plan: * Chest x-ray suggesting pneumonia versus atelectasis * Pulmonary consulted and thinks that this is more atelectasis versus pneumonia * Antibiotics discontinued * Continue incentive spirometer * Continue flutter valve * Continue DuoNebs, P dose tonight and guaifenesin * Continue EZ Pap therapy, pulmonology to adjust settings * Respiratory panel negative for RSV, COVID, influenza a and B * Blood cultures showing no growth to date on preliminary read * Sputum culture was negative (2) Acute exacerbation of chronic obstructive airways disease: Code(s): J44.1 - Chronic obstructive pulmonary disease with (acute) exacerbation Status: Acute Assessment and Plan: See above (3) Pulmonary edema: Code(s): J81.1 - Chronic pulmonary edema Status: Acute Assessment and Plan: * She was noted to have moderate pulmonary hypertension from an echo on 06/11/2020. Echocardiogram on 12/30/2023 shown an estimated pulmonary arterial systolic pressure of 66 mmHg, grade 1 diastolic dysfunction with left atrial enlargement and right atrial enlargement, [id number] tricuspid valve regurgitation, normal LV systolic function with an estimated EF of 70%. * Echocardiogram done this admission was limited due to no Doppler and showed a normal LV systolic function with an estimated EF of 65-70%, mildly sclerotic aortic valve without stenosis. * Blood pressure medications were held yesterday and today has shown significant improvement in her blood pressure. * We will go ahead and give Lasix 20 mg IV this morning and then also re- evaluate her this afternoon to give her 2nd dose of Lasix 20 mg IV as long as her blood pressure allows * Plan discussed with dyno technician and he agrees * Will repeat chest x-ray in the morning (4) Hypertension: Code(s): I10 - Essential (primary) hypertension Status: Acute Assessment and Plan: * Currently on medications are being held due to hypotension (5) Weakness: Code(s): R53.1 - Weakness Status: Acute Assessment and Plan: * Continue fall precaution * Continue PT and OT * Case management following for outpatient rehab needs Time Spent With Patient Time with patient: Greater than 35 minutes Subjective Date/time seen: 02/03/24 17:58 Interval history: Interval history: 88-year-old female with PMHx of COPD on home oxygen 2 L NC, chronic respiratory proximal atrial fibrillation on anticoagulation, diastolic heart failure, HTN, hyperlipidemia, depression and anxiety, benign tremors, anemia along with a neurocognitive disorder currently on Namenda presented to the emergency room with generalized weakness, shortness of breath. Workup in the hospital included a chest x-ray which shown a left basilar airspace disease representing atelectasis or pneumonia. Chest CTA was negative for PE, aortic dissection, or aortic aneurysm, mild mixed alveolar and interstitial pulmonary edema, minimal pleural effusion, compression fractures of T11, L1, mild cirrhotic changes of the liver. X-ray from 02/02/2024 shown bibasilar pneumonia, pulmonary edema versus pneumonitis bilaterally, sliding hiatus hernia. Initial labs showed a white blood cell count of 11.3, hemoglobin 10.7, chloride 97, bicarb greater than 40, creatinine 1.20, EGFR 42, lactic acid 1.5, proBNP 504, procalcitonin 0.1, TSH 2.760, free T4 0.99. An ABG was obtained on 02/02/2024 which showed a normal pH of 7.388, pCO2 61.2, PO2 52.7, bicarb 36.0, O2 saturation 85.9, base excess 9.4. Patient was then transferred to IMU due to respiratory decline and BiPAP therapy. Pulmonology was consulted for further assistance. Subjective: Patient denies any fever, chills, nausea, vomiting, diarrhea, abdominal pain, chest pain, shortness a breath. She is currently on 5 L nasal cannula at rest. She normally wears 1 L at rest, 2 L with activity, and 2 L with sleep. Labs and imaging reviewed. Review of Systems Review of Systems: All systems reviewed & are unremarkable except as noted in HPI and below Constitutional: Constitutional: Reports as per HPI and Reports no additional constitutional complaints Eyes: Eyes: Reports as per HPI and Reports no additional eye complaints ENT: Reports system reviewed and no additional complaints, except as documented and Reports as per HPI Cardiovascular: Cardiovascular: Reports as per HPI and Reports no additional cardiovascular complaints Respiratory: Respiratory: Reports as per HPI and Reports no additional respiratory complaints Gastrointestinal: Gastrointestinal: Reports as per HPI and Reports no additional gastrointestinal complaints Genitourinary: Genitourinary: Reports no additional female genitourinary complaints and Reports as per HPI Musculoskeletal: Musculoskeletal: Reports no additional musculoskeletal complaints and Reports as per HPI Integumentary/Breasts: Skin/Breast: Reports system reviewed and no additional complaints, except as docu and Reports as per HPI Neurologic: Reports system reviewed and no additional complaints, except as documented and Reports as per HPI Psychiatric: Psychiatric: Reports no additional psychiatric complaints and Reports as per HPI Exam Narrative: General: In no acute distress, well nourished Head: atraumatic, no encephalopathy Eyes: EOMI, PERRLA, sclera clear ENT: moist mucous membranes, nasal passages clear Neck: supple, no JVD, no adenopathy, trachea midline Cardiac: Normal S1 and S2. Murmur noted. No gallops or friction rubs, peripheral pulses intact. Respiratory: Lungs clear to auscultation, no adventitious lung sounds, currently on 5 L nasal cannula, tachypnea present, no use of accessory muscles seen Gastrointestinal: soft, non-distended, non-tender, normoactive bowel sounds. : voiding without difficulty. Extremities: moves all extremities well, no edema Skin: clean, dry, intact. No wounds or lesions. Neuro: Alert and oriented x4, cranial nerves intact, no neuro deficits. Psych: normal mood, normal affect, interactive Objective Data Vital Signs Vital Signs: Vital Signs - 24 hr 02/02/24 19:23 02/02/24 19:23 02/02/24 19:34 Temperature Pulse Rate 80 80 Respiratory Rate 22 H 22 H Blood Pressure Pulse Oximetry 92 Oxygen Delivery Nasal Cannula Oxygen Flow Rate 4.5 Fraction of Inspired Oxygen 02/02/24 19:55 02/02/24 20:00 02/02/24 20:00 Temperature 98.1 F Pulse Rate 81 81 81 Respiratory Rate 17 17 Blood Pressure 124/96 H Pulse Oximetry 90 91 Oxygen Delivery Nasal Cannula Oxygen Flow Rate 5 Fraction of Inspired Oxygen 02/02/24 21:50 02/02/24 23:48 02/03/24 00:00 Temperature 98.2 F Pulse Rate 86 65 65 Respiratory Rate 16 17 17 Blood Pressure 97/52 L Pulse Oximetry 92 93 93 Oxygen Delivery Autopap Autopap Oxygen Flow Rate Fraction of Inspired Oxygen 40 02/03/24 00:00 02/03/24 02:00 02/03/24 04:00 Temperature Pulse Rate 66 62 70 Respiratory Rate Blood Pressure Pulse Oximetry Oxygen Delivery Oxygen Flow Rate Fraction of Inspired Oxygen 02/03/24 05:15 02/03/24 06:00 02/03/24 08:09 Temperature 97.6 F Pulse Rate 75 79 Respiratory Rate 17 Blood Pressure 124/81 Pulse Oximetry 95 91 Oxygen Delivery Nasal Cannula Oxygen Flow Rate 5 Fraction of Inspired Oxygen 02/03/24 08:17 02/03/24 08:00 02/03/24 08:37 Temperature 97.9 F Pulse Rate 88 84 85 Respiratory Rate 20 22 H 18 Blood Pressure 141/99 H Pulse Oximetry 96 Oxygen Delivery Oxygen Flow Rate Fraction of Inspired Oxygen 02/03/24 12:00 02/03/24 08:00 02/03/24 10:00 Temperature 98.4 F Pulse Rate 94 84 82 Respiratory Rate 20 Blood Pressure 130/64 Pulse Oximetry 92 Oxygen Delivery Oxygen Flow Rate Fraction of Inspired Oxygen 02/03/24 12:00 02/03/24 14:13 02/03/24 14:24 Temperature Pulse Rate 101 H 87 85 Respiratory Rate 18 18 Blood Pressure Pulse Oximetry Oxygen Delivery Oxygen Flow Rate Fraction of Inspired Oxygen 02/03/24 08:00 02/03/24 12:00 02/03/24 17:11 Temperature Pulse Rate 103 H Respiratory Rate 22 H Blood Pressure Pulse Oximetry 91 92 Oxygen Delivery Nasal Cannula Nasal Cannula Oxygen Flow Rate 5 6 Fraction of Inspired Oxygen 02/03/24 17:15 02/03/24 15:53 02/03/24 16:00 Temperature 98.9 F Pulse Rate 87 49 L Respiratory Rate 20 22 H Blood Pressure 130/64 142/62 H Pulse Oximetry 91 94 Oxygen Delivery Oxygen Flow Rate Fraction of Inspired Oxygen 02/03/24 15:45 02/03/24 15:55 Temperature Pulse Rate Respiratory Rate Blood Pressure 140/62 117/78 Pulse Oximetry Oxygen Delivery Oxygen Flow Rate Fraction of Inspired Oxygen Intake/Output Intake/Output: Intake & Output 01/31/24 02/01/24 02/02/24 02/03/24 23:59 23:59 23:59 23:59 Intake Total 1242 1270 1571 1832 Output Total 950 500 Balance 1242 6105 406 6888 Meds/Results Medications: Active Medications Generic Name Dose Route Start Last Admin Trade Name Freq PRN Reason Stop Dose Admin Acetaminophen 650 mg 01/31/24 12:16 02/03/24 17:10 Acetaminophen 325 Mg Tablet PO 650 mg Q4H PRN Administration Pain Albuterol 2.5 mg 01/30/24 16:38 02/03/24 17:11 Albuterol Sulfate Neb 2.5 Mg/3 Ml Inh INHALATION 2.5 mg Q8H PRN Administration wheezing Albuterol/Ipratropium 3 ml 02/01/24 14:00 02/03/24 14:13 Ipratropium 0.5 Mg/Albuterol Sulfate 2.5 Mg Ampul.Neb 3 Ml NEBULIZE 3 ml Q6HRT MASTER Administration Amlodipine Besylate 5 mg 01/31/24 09:00 02/02/24 08:08 Amlodipine Besylate 5 Mg Tablet PO 5 mg DAILY MASTER Administration Apixaban 5 mg 01/30/24 17:00 02/03/24 16:21 Apixaban 5 Mg Tablet PO 5 mg BID MASTER Administration Aripiprazole 2 mg 01/31/24 09:00 02/03/24 09:18 Aripiprazole 2 Mg Tablet PO 2 mg DAILY MASTER Administration Atorvastatin Calcium 80 mg 01/30/24 21:00 02/02/24 20:25 Atorvastatin 40 Mg Tablet PO 80 mg HS MASTER Administration Bisacodyl 5 mg 01/30/24 16:38 Bisacodyl 5 Mg Tablet Ec PO DAILY PRN constipation Budesonide 0.5 mg 02/01/24 20:00 02/03/24 08:06 Budesonide Respule Neb 0.5 Mg/2 Ml Amp INHALATION 0.5 mg Q12HRT MASTER Administration Citalopram Hydrobromide 20 mg 01/30/24 21:00 02/02/24 20:24 Citalopram Hydrobromide 20 Mg Tablet PO 20 mg QHS MASTER Administration Docusate Sodium 100 mg 01/30/24 17:00 02/03/24 16:21 Docusate Sodium 100 Mg Capsule PO 100 mg BID MASTER Administration Ferrous Sulfate 325 mg 02/01/24 09:00 02/03/24 09:17 Ferrous Sulfate [address] PO 325 mg Q48H MASTER Administration Furosemide 20 mg 01/31/24 09:00 02/02/24 08:03 Furosemide 20 Mg Tablet PO 20 mg DAILY MASTER Administration Furosemide 20 mg 02/03/24 09:00 Furosemide Inj 40 Mg/4 Ml Vial IV PUSH DAILY MASTER Guaifenesin 1,200 mg 02/01/24 10:10 02/03/24 09:17 Guaifenesin 12 Hr 600 Mg Tabcr PO 1,200 mg Q12HR MASTER Administration Ceftriaxone Sodium 1 gm in 50 mls @ 100 mls/hr 01/31/24 16:00 02/03/24 16:21 Rocephin 1 Gm/Ns 50 Ml IVPB 02/03/24 23:59 100 mls/hr Q24H MASTER Administration Azithromycin 500 mg in 250 mls @ 250 mls/hr 01/31/24 16:00 02/03/24 16:48 Zithromax IVPB 02/03/24 23:59 250 mls/hr Q24H MASTER Administration Memantine 5 mg 01/30/24 21:00 02/03/24 09:18 Memantine 5 Mg Tablet PO 5 mg Q12HR MASTER Administration Mirtazapine 15 mg 01/30/24 21:00 02/02/24 20:25 Mirtazapine 15 Mg Tablet PO 15 mg HS MASTER Administration Oxycodone HCl 5 mg 01/30/24 16:38 02/03/24 05:50 Oxycodone Hcl (*Crx) 5 Mg Tab Ir PO 5 mg Q4H PRN Administration Pain Rated 4-6 Pantoprazole Sodium 40 mg 01/31/24 09:00 02/03/24 09:18 Pantoprazole 40 Mg Tablet PO 40 mg QAM MASTER Administration Perflutren Lipid Microsphere 0 ml 02/01/24 09:54 Perflutren Lipid Microspheres 1.5 Ml Vial Diluted To 10 Ml Total Volume IV PUSH 02/04/24 09:54 ONCE PRN adequate visualization Protocol Polyethylene Glycol 17 gm 01/30/24 16:38 02/01/24 10:18 Polyethylene Glycol 3350 17 Gm Powd.Pack PO 17 gm QAM PRN Administration Constipation Pramipexole Dihydrochloride 0.5 mg 01/30/24 21:00 02/02/24 20:25 Pramipexole 0.5 Mg Tablet PO 0.5 mg HS MASTER Administration Pregabalin 100 mg 01/30/24 21:00 02/03/24 09:16 Pregabalin (*Crx) 50 Mg Capsule PO 100 mg Q12HR MASTER Administration Trazodone HCl 50 mg 01/30/24 21:00 02/02/24 20:24 Trazodone Hcl 50 Mg Tablet PO 50 mg HS MASTER Administration Vitamin D 1,000 units 01/31/24 09:00 02/03/24 09:18 Cholecalciferol 1,000 Units Tablet PO 1,000 units DAILY MASTER Administration Radiology Results: ITS Impressions Chest CTA 02/01/24 12:08 Impression: No evidence of pulmonary embolus, aortic dissection, or aortic aneurysm. Mild mixed alveolar and interstitial pulmonary edema. Minimal pleural effusions with probable bibasilar/dependent atelectatic change, right worse than left. Correlate clinically for pneumonia. Compression fractures, as above. Questionable mild cirrhotic change of the liver. Correlate clinically and with LFTs. Chest X-Ray 02/02/24 08:37 IMPRESSION: Bibasilar pneumonia. Pulmonary edema versus pneumonitis bilaterally. Sliding hiatus hernia. Labs Labs: Laboratory Results - last 24 hr 01/30/24 02/03/24 02/03/24 18:35 04:53 07:09 WBC 9.1 RBC 2.95 L Hgb 8.4 L Hct 29.5 L MCV 100.0 MCH 28.5 MCHC 28.5 L RDW 16.7 H Plt Count 124 L MPV 10.0 Immature Gran % (Auto) 0.4 Neut % (Auto) 76.8 H Lymph % (Auto) 14.0 L [place] % (Auto) 6.4 Eos % (Auto) 2.2 Baso % (Auto) 0.2 Lymph # (Auto) 1.27 [place] # (Auto) 0.6 Eos # (Auto) 0.2 Baso # (Auto) 0.0 Abs Immat Gran (auto) 0.04 H Absolute Neuts (auto) 7.0 H Absolute Nucleated RBC 0.000 Nucleated RBC % 0.0 Platelet Estimate Decreased % Immature Plt Fraction 4.1 Hypochromasia 1+ Microcytosis 1+ Schistocytes None seen Puncture Site Right radial ABG pH 7.366 ABG pCO2 61.5 H* ABG pO2 74.5 L ABG PO2/FiO2 Ratio 1.86 ABG HCO3 34.4 H ABG O2 Saturation 94.1 L ABG O2 Content 12.0 L ABG Base Excess 7.8 A-a Gradient 140.0 Oxyhemoglobin 93.4 Total Hemoglobin 9.1 L O2 Delivery Device Other device O2 Liters/Min 5.0 FiO2 40 Sodium 143 Potassium 4.0 Chloride 99 Carbon Dioxide > 40 H Anion Gap BUN 20 H Creatinine 0.90 Estim Creat Clear Calc Not Reportable Estimated GFR 59 Glucose 98 Calcium 8.5 Total Bilirubin 0.7 AST 19 ALT 16 Alkaline Phosphatase 63 Total Protein 6.0 L Albumin 3.5 Urine Pneumococcal Ag Detected A Quality VTE Prophylaxis VTE prophylaxis: pharmacologic ordered
--- NOTE | 2024-02-03 18:52 | PC.NURSE ---
Pt called this RN into the room to discuss code status. He would like to be a Full Code. Pt is A&OX2. agrees to Full code status. Dr Harris made aware. MARGRET Garcia verified with pt/.
[2024-02-03] MEDS: ATORVASTATIN 40 MG TABLET 80 MG PO (20:04)
[2024-02-03] MEDS: CITALOPRAM HYDROBROMIDE 20 MG TABLET PO (20:04)
[2024-02-03] MEDS: MIRTAZAPINE 15 MG TABLET PO (20:04)
[2024-02-03] MEDS: traZODone HCL 50 MG TABLET PO (20:04)
[2024-02-03] MEDS: PRAMIPEXOLE 0.5 MG TABLET PO (20:04)
[2024-02-04] VITALS (23 sets, daily range): BP systolic 105–150; BP diastolic 46–98; PULSE 67–97; RESP 18–28; TEMP 36.4–37.4; O2SAT 88–95
[2024-02-04 00:59] LABS: Legionella pneumophila Ag Ur NOT DETECTED
--- NOTE | 2024-02-04 04:14 | PCRCNOTE ---
Patient did not receive 0200 updraft treatment due to being on an overnight oximetry study. Treatment to resume at 0800.
[2024-02-04 05:10] LABS: Basophils Percent Auto 0.1 % (0.2-1.2); Eosinophils Absolute Auto 0.2 K/mm3 (0-0.3); Eosinophils Percent Auto 2.5 % (0-4.4); Hematocrit 29.6 % (37.0-47.0); Hemoglobin 8.6 g/dL (12.0-15.0); Immature Granulocyte Absolute 0.04 K/mm3 (0.00-0.031); Immature Granulocyte Percent A 0.5 % (0-0.5); Immature Platelet Fraction Pct 4.1 % (0.9-11.2); Lymphocytes Absolute Auto 1.19 K/mm3 (0.9-3.2); Lymphocytes Percent Auto 15.8 % (18.3-44.2); Mean Corpuscular HGB Conc 29.1 g/dl (32-36); Mean Corpuscular Hemoglobin 28.6 pg (26-34); Mean Corpuscular Volume 98.3 fl (80-100); Mean Platelet Volume 10.1 fl (7.4-10.4); Monocytes Absolute Auto 0.5 K/mm3 (0.1-0.6); Monocytes Percent Auto 6.3 % (2.6-8.5); Neutrophils Absolute Auto 5.6 K/mm3 (1.3-6.7); Neutrophils Percent Auto 74.8 % (45.5-73.1); Platelet Count Result 130 k/mm3 (150-375); Red Blood Count 3.01 M/mm3 (4.2-5.4); Red Cell Distribution Width 16.8 % (11.5-14.5); White Blood Count 7.5 K/mm3 (4.5-10.0)
[2024-02-04 05:10] LABS: Alveolar/Arterial O2 Gradient 199.8 mmHg; Base Excess ABG 9.9 mEq/l (+/-2.0); Fractional Inspired Oxygen 48 %; Oxygen Content ABG 12.1 %vol (16.0-22.0); Oxygen Saturation ABG 94.9 % (95.0-100.0); Oxyhemoglobin 93.9 % THb (90.0-100.0); PCO2 ABG 58.8 mmHg (35.0-45.0); PO2 FiO2 Ratio Arterial Blood 1.58 %; Total Hemoglobin 9.1 g/dL (12.0-18.0); pH ABG 7.405 (7.350-7.450)
[2024-02-04 05:11] LABS: Device OTHER DEVICE; Modified Allen's Test Pass; Site Drawn RIGHT RADIAL
[2024-02-04 05:26] LABS: Alanine Aminotransferase 15 U/L (6-35); Albumin Level 3.5 g/dL (3.5-5.1); Alkaline Phosphatase 68 U/L (38-126); Anion Gap 3 mmol/L (4-12); Aspartate Amino Transferase 17 U/L (14-36); Bilirubin,Total 0.8 mg/dL (0.2-1.3); Blood Urea Nitrogen 23 mg/dL (7-17); Calcium 8.4 mg/dL (8.4-10.2); Carbon Dioxide 38 mmol/L (22-30); Chloride 101 mmol/L (98-107); Estimated Glomerular Filt Rate 39; Glucose 104 mg/dL (65-110); Potassium 3.6 mmol/L (3.4-5.0); Sodium 142 mmol/L (137-145)
[2024-02-04 05:51] LABS: Hypochromasia 1+; Platelet Estimate Decreased (Adequate); Schistocytes None Seen; Stomatocytes 1+
[2024-02-04] MEDS: IPRATROPIUM 0.5 MG/ALBUTEROL SULFATE 2.5 MG AMPUL.NEB 3 ML NEBULIZE (07:00)
[2024-02-04] MEDS: BUDESONIDE RESPULE NEB 0.5 MG/2 ML AMP INHALATION (07:00)
[2024-02-04 08:24] LABS: NT Pro B Type Natriuretic Pept 721 pg/mL (19.9-100)
--- NOTE | 2024-02-04 09:19 | PM.PNPUL ---
Progress Note: A&P Assessment and Plan (1) COPD (chronic obstructive pulmonary disease): Code(s): J44.9 - Chronic obstructive pulmonary disease, unspecified Status: Acute Assessment and Plan: Regarding her COPD: 35 pack year tobacco, quit 8-10 years ago, chronic hypoxemic respiratory failure wearing 1 L at rest, 2 L with activity and 2 L sleep. Chronic hypercarbic respiratory failure on noninvasive ventilation with the AVAPS AE mode and 2 L bleed in. previously followed at [facility] Last office visit note 02/18/2023. Severe COPD per PFT in 2016. she was not interested in pulmonary rehabilitation. She is current on all her vaccines. Continue trilogy 100, albuterol inhaler nebulized rescue. 3 L with activity, 1 L at rest and 2 L at night. Noncompliant with CPAP and uninterested in restudy or trouble shooting. 02/01/24: patient has a few end-expiratory expiratory wheezes today. She has no increase in her phlegm production she does have worsening dyspnea on exertion. Plan: I will change the patient from her inhaled trilogy to nebulized DuoNebs q.6 hours and nebulized budesonide 500 mcg q.12 hours. Patient also has difficulty expectorating and I will add guaifenesin 1200 mg p.o. b.i.d.. I will add a Cornet flutter valve q.4 hours while awake. I will send an alpha 1 anti trypsin genotype on 02/01. 02/02/2024: Overall the patient tells me she is doing better than yesterday although she cannot quantitate this and can not tell me what is better. She still says she has some labored breathing. Her cough is the same and she says it is dry although loose. The patient does not know if she slept last night with the noninvasive ventilator on. She does remember being cold last night. White blood cell count 7.8, creatinine 0.8. Plan: Continue DuoNebs q.6 hours and nebulized budesonide 500 mcg q.12 hours. Continue guaifenesin 1200 mg p.o. b.i.d. and continue Cornet flutter valve q.4 hours while awake and EzPAP treatment for atelectasis. 02/03/24: Patient tells me she feels better today although she can not tell me why she feels better her what symptoms are better. Overall she complained she is weak but has no shortness of breath at rest. She states her breathing is better. yesterday she walked 10 feet and she said she got weak but not short of breath. Physical therapy note states unsteady gait due to intermittent tremors -shaking during gait. Saturations 95% prior to gait at rest decreased to 87 following gait and recovered to 90s with rest. Patient is currently on 5 L nasal cannula saturations 91%. Patient walked with physical therapy yesterday 20 ft x 2. Plan: Continue DuoNebs q.6 and nebulized budesonide 500 q.12, guaifenesin 1200, Cornet flutter valve and EzPAP. 02/04/24: patient tells me she continues to improve although it is hard for her to quantitate her improvement. Overall she states she is breathing normal. She says her cough is normal with no phlegm and no hemoptysis. She is afebrile. White blood cell count 7.5, creatinine 1.3. When I enter the room the patient was on 5 L nasal cannula saturations 95%. I decreased her to 3 L nasal cannula and her saturations were 93%. Plan: I will discontinue nebulizers and place the patient on trelegy 100. I will continue guaifenesin 1200 mg p.o. b.i.d., Cornet flutter valve and EzPAP. Goal saturation 90-94%. Will wean as tolerated. If patient remains clinically stable overnight stable for discharge from a pulmonary perspective on 02/05/2024 on these pulmonary medications: trelegy 100-60 2.5-25 at 1 puff q.day rescue albuterol 2 puffs q. 4 hour p.r.n. shortness of breath or wheezing Rescue albuterol 2.5 mg nebs q.4 hours p.r.n. shortness of breath or wheezing guaifenesin 600 mg p.o. q.12 hours p.r.n. Eliquis 5 mg PO BID oxygen at rest and with ambulation per home O2 assessment on the day of discharge when she naps or sleeps: home Belinda through [employer] with settings rate of 20, tidal volume 500, EPAP minimum 5, EPAP maximum 10, pressure support minimum 5, pressure support maximum 25 with 7 L bleed in. Discussed with Flaquita Barnes, will follow with you. (2) Pneumonia: Qualifiers: Laterality: left Lung location: lower lobe of lung Pneumonia type: due to unspecified organism Qualified Code(s): J18.9 - Pneumonia, unspecified organism Code(s): J18.9 - Pneumonia, unspecified organism Status: Acute Assessment and Plan: Discharged from [facility] on 12/10/2019 for status post vancomycin and cefepime for pneumonia. Discharged on Augmentin. Readmitted 12/28 with PE and treated for pneumonia with cefepime and vanco. Also treated for COPD exacerbation with Solu-Medrol and DuoNebs. Transition to azithromycin. Discharged to rehabilitation center and then to assisted living at [place] [facility] on no antibiotics on 01/22/2024. 02/01/24: currently the patient was readmitted with weakness of the arms and legs and worsening shortness of breath. She has persistent cough that is unchanged from 12/29/2023 with no increased phlegm production or chest pain. Her admission white blood cell count was 11.3. She has been afebrile. She has been treated with ceftriaxone and azithromycin since 01/30/2024. Review of her imaging on 01/30/2024 demonstrates small lung volumes with left lower lobe infiltrate and compared to 01/17/2024 the right lower lobe and left lower infiltrates are improved. Blood cultures are negative. COVID influenza and RSV RT PCR study are negative. Plan: I will continue ceftriaxone and azithromycin, day 3. I will send a MRSA nasal swab. I will send a extended respiratory pathogen panel. I will order CTA of the chest to reassess infiltrates. Overall my clinical suspicion for bacterial pneumonia is low and I will not broaden her antibiotic coverage at this time. Urine Legionella, urine pneumococcal studies pending. I will send a mycoplasma IgM on 02/02/2024. 02/02/24: Patient is afebrile. White blood cell count 7.8, procalcitonin 0.1 yesterday, CT scan with diffuse interstitial alveolar infiltrates with some atelectasis but no focal infiltrates suggesting pneumonia. MRSA swab negative. Plan: Patient is on day 4 ceftriaxone and azithromycin. Will plan to finish 5 day treatment. Blood cultures negative time 2. Urine Legionella, urine pneumococcal, serum mycoplasma IgM and respiratory pathogen panel pending. 02/03/24: Patient still has dry cough but this is improving. Afebrile. White blood cell count 9.1. Plan: Day 5 ceftriaxone and azithromycin and will discontinue after today. Blood culture negative. Urine Legionella, pneumococcal and serum IgM, and respiratory pathogen panel pending. 02/03: Patient afebrile, white blood cell count 7.5, urine streptococcal antigen is positive. Urine Legionella negative. Mycoplasma IgM and respiratory pathogen panel pending. Plan: I will continue ceftriaxone at this time, day 6. (3) Chronic respiratory failure with hypoxia and hypercapnia: Code(s): J96.11 - Chronic respiratory failure with hypoxia; J96.12 - Chronic respiratory failure with hypercapnia Status: Acute Assessment and Plan: Patient with COPD and history of chronic hypercarbic and hypoxemic respiratory failure and prescribed noninvasive ventilation with the AVAPS AE mode with respiratory rate auto, tidal volume 350, EPAP 5, maximum EPAP 10. Minimum pressure support 5, maximum pressure support 10 With 2 L bleed in on 10/30/2023. Patient tells me she has been wearing a fullface mask with this new machine at [facility]. Download from [employer] from 01/03/2024 through 02/01/2024. Patient is on noninvasive ventilator with the Belinda machine with a T TV-VAPS-AE mode. rate is auto. Tidal volume 350. EPAP minimum 5, EPAP maximum 10, pressure support minimum 5, pressure support maximum 12. % of days with usage greater than or equal to 4 hours is 67%. Average usage on days used is 5 hours and 50 minutes. Weekly average respiratory rate median 12-16. Weekly average tidal volume median 350-400. Weekly average EPAP 7.5. Weekly average IPAP 15.5-16. Weekly average unintentional leak 2.5-25 weekly average minute ventilation 4-6. I interpret this download as suboptimal compliance, low tidal volume and acceptable leak. Plan: I will place the patient on a hospital noninvasive ventilator with the AVAPS mode with a rate of 14, tidal volume 450, EPAP 7, minimal inspiratory pressure 8, maximal inspiratory pressure 25, I-time of 1, rise of 3 and 32% FiO2. I will obtain an ABG prior to removal and an overnight oximetry. Patient wore the hospital noninvasive ventilator with the AVAPS mode rate of 14, tidal volume 450, EPAP 7, minimal inspiratory pressure 8, maximal inspiratory pressure 25, Inspiratory time 1.0, rise of 1 and 32% FiO2. ABG prior to removal of the mask was 7.39/61/53. Patient had an overnight oximetry on these studies with recording duration of 6 hours and 28 minutes. Average saturation 89%. Low saturation 83%. Time with saturation less than or equal to 88% was 122 minutes, oxygen desaturation index 8.9. Her weight today is 71.5 with an admission weight of 67.3. Plan: we will call via [employer], to determine if they can change her Belinda home noninvasive ventilator to a rate of 18, tidal volume 500, EPAP minimum 5, EPAP maximum 10, pressure support minimum 5, pressure support maximum [address] her on 5 L bleed in. Will repeat overnight oximetry an ABG in the morning prior to removal on her home machine if this can be arranged. If the changes to the home machine cannot be arranged will place on hospital AVAPS with a rate of 14, tidal volume 500, EPAP 7, minimal inspiratory pressure 8, maximal inspiratory pressure 25, inspiratory time 1.0, Rise of 1 and 40%. 02/03/24: Patient wore the home Belinda through via [employer] with settings rate of 14, tidal volume 500, EPAP minimum 5, EPAP maximum 10, pressure support minimum 5, pressure support maximum 25 with 5 L bleed in. The patient said she did well with a fullface mask and that it was comfortable and she slept. ABG prior to removal was 7.37/62/75. Overnight oximetry on these settings with recording duration of 7 hours and 32 minutes. Average saturation 93%. Low saturation 87%. Time with saturation less than or equal to 88% was 7 minutes. Oxygen desaturation 0.6. Plan: Current home ventilator settings provide adequate but not optimal minute ventilation and I will increase her respiratory rate to 20. Patient hypoxic on 5 L bleed in will place on 6 L bleed in. Will obtain overnight oximetry and ABG in the morning. 02/03: Patient wore the home Belinda through via med with settings rate of 20, tidal volume 500, EPAP minimum 5, EPAP maximum 10, pressure support minimum 5, pressure support maximum 25 with 7 L bleed in. she said she slept well with this and had no issues. ABG prior to removal was 7.41/59/76. patient an overnight oximetry with recording duration 6 hours 21 minutes. Average saturation 96%. Low saturation 89%. Time with saturation less than or equal to 88% was 0 minutes. Oxygen desaturation index 1.4. Plan: Current home Belinda settings provide adequate ventilation and oxygenation. Will continue while in hospital and on discharge. (4) Pulmonary embolism: Code(s): I26.99 - Other pulmonary embolism without acute cor pulmonale Status: Acute Assessment and Plan: Patient with a CT angiogram of the chest on 12/29/2023 with small non filling defects in the left lower lobe. Patient placed on Eliquis. 02/01/24: Plan: I will repeat a CT angiogram of the chest today to reassess filling defects in left lower lobe and to assess for new pulmonary emboli. Continue Eliquis 5 p.o. b.i.d. Later in the day CT scan angiogram of the chest with no PE. 02/02/24: Continue Eliquis 5 p.o. b.i.d. (5) Pulmonary hypertension: Code(s): I27.20 - Pulmonary hypertension, unspecified Status: Acute Assessment and Plan: Regarding her pulmonary hypertension. Patient had an echocardiogram on 06/12/2023 with LVEF 82%, diastolic dysfunction, mild aortic regurgitation, mild mitral regurgitation, mild tricuspid regurgitation with an RVSP of 45. echocardiogram on 10/28/2023 with LVEF greater than 70, grade 1 diastolic dysfunction, RV size and function were normal, right atrial size was normal. PASP 67. Echocardiogram 12/30/2023: LVEF greater than 70, grade 1 diastolic dysfunction, right ventricular moderately enlarged with normal function. Severe left atrial enlargement. Severely enlarged right atrial enlargement, PASP 66. Etiology of pulmonary hypertension and includes: Severe COPD with chronic hypercarbic and hypoxemic respiratory failure, pulmonary embolism, untreated obstructive sleep apnea and diastolic dysfunction. 02/01/24: plan: Repeat echocardiogram ordered. Continue treatment for COPD, pulmonary embolism, obstructive sleep apnea, AFIB and diastolic dysfunction. Later in the day a limited echocardiogram was performed with no Doppler. Moderate concentric LVH with vigorous systolic function. Right ventricular chamber was normal. Right atrial chamber normal. No PASP measured. 02/02/24: Echocardiogram did not reassess pulmonary pressures. Plan: Will continue to optimize COPD with chronic hypercarbic and hypoxemic respiratory failure, continue treatment for PE, noninvasive ventilation will treat obstructive sleep apnea. Patient with mildly elevated BNP, CT scan of the chest with evidence of congestion and low blood pressure. Ideally would aggressively diurese patient for the possibility of fluid overload but at this time we are limited by low blood pressure. This morning the patient received her home dose of amlodipine 5 an Lasix 20 p.o.. If she can tolerate more aggressive diuresis would recommend this. Cardiology and hospitalist managing diuretics. 02/03/24: Continue to optimize COPD with chronic hypercarbic and hypoxemic respiratory failure as above, continue treatment for PE, optimize noninvasive ventilation for COPD and obstructive sleep apnea as above. Blood pressure low yesterday given albumin. Weight today is 71.9 with an admission weight of 67.3. Plan: Patient with low blood pressure limiting diuresis. Amlodipine on hold. agree with diuresis as tolerated by cardiac and renal systems per hospitalist and Cardiology teams. Patient given 20 of Lasix IV. 02/04/24: Creatinine is increased for from 0.9 to 1.3. Overall patient is clinically improving and oxygenation is improving. In's an out's from yesterday list positive 423. Weight today is 73 with an admission weight 67.1. BNP has increased from 411 to 721. Plan: I placed the Lasix on hold at this time. Subjective Date/time seen: 02/04/24 09:19 Interval history: 02/01/2024: This is a new pulmonary consult for pulmonary hypertension. 89-year-old with a history of hypertension, hyperlipidemia, obesity, atrial fibrillation on anticoagulation, tremor, COPD on home oxygen 1 L at rest, 2 L with activity and 2 L on her home noninvasive ventilator with AVAPS AE mode. Regarding her COPD: 35 pack year tobacco, quit 8-10 years ago, previously followed at [facility] Last office visit note 02/18/2023. Severe COPD per PFT in 2016. she was not interested in pulmonary rehabilitation. She is current on all her vaccines. Continue trilogy 100, albuterol inhaler nebulized rescue. 3 L with activity, 1 L at rest and 2 L at night. Noncompliant with CPAP and uninterested in restudy or trouble shooting. Regarding her pulmonary hypertension. Patient had an echocardiogram on 06/12/2023 with LVEF 82%, diastolic dysfunction, mild aortic regurgitation, mild mitral regurgitation, mild tricuspid regurgitation with an RVSP of 45. echocardiogram on 10/28/2023 with LVEF greater than 70, grade 1 diastolic dysfunction, RV size and function were normal, right atrial size was normal. PASP 67. Echocardiogram 12/30/2023: LVEF greater than 70, grade 1 diastolic dysfunction, right ventricular moderately enlarged with normal function. Severe left atrial enlargement. Severely enlarged right atrial enlargement, PASP 66. Patient previously seen by Pulmonary for COPD with chronic hypercarbic and hypoxemic respiratory failure and VBG on 2 L nasal cannula ./ less than 27. Prescribed a home noninvasive ventilator with the AVAPS AE mode on 10/30/2023. 35 pack year tobacco use, quit 8-10 years ago. Maintained on [facility] 10/30/2023: Default settings; height is 1.38 m, wt 68.8 kg. BMI 35.9 kg/m2 Primary settings : AVAPS-AE with Target Tidal Volume TV 350 ml, RR( intentionally left blank) Max pressure 20; PS Min 5; PS Max 10; EPAP Min 5; EPAP Max 10. Bleed in 2 L/min with sleep This form was faxed to [facility] [phone] to Bhaskar who worked with us to provide equipment for this patient. Plan is for this to be set up at [facility] 10/29 today, with discharge planned for today. Recently admitted for weakness and treated for aspiration pneumonia, CT angiogram of the chest showed small nonocclusive filling defects left lower lobe with low clot burden. She was treated with antibiotics. She had a swallow study with laryngeal penetration and aspiration with continued speech therapy and on 01/21/2024 she was tolerated thin ice water after doing She was discharged to rehabilitation center And discharged back to [facility] on 01/22/2024. Patient stated she was doing well on 01/28/2024 but on 01/28 she was weak. On 01/30/24 she could not walk because she had weak arms and legs and she had worsening shortness of breath. She presented to the emergency department. Patient states her persistent cough since her admission on 12/29/2023 was unchanged. She denied fever, chills, chest pain, hemoptysis. She has minimal production of phlegm. In the emergency department her white blood cell count was 11.3 with 0.6% eosinophils, creatinine was 1.2, BNP was 504, COVID influenza and RSV RT PCR studies were negative. Chest x-ray on 01/29 demonstrated left lower lobe infiltrate with improved right and left lower lobe infiltrates from 01/17/2024. She was admitted to the hospital and treated for pneumonia with ceftriaxone and azithromycin. 01/31/24: she was hypotensive required 1 L IV fluids. She was placed on auto PAP at night. Her procalcitonin was 0.1. 02/01/24: Today is she tells me that her dyspnea on exertion is the same since admission, she states that her cough and phlegm production or unchanged since admission she denies any lower extremity swelling or chest pain. She is afebrile. White blood cell count 8.5, creatinine 0.8. Later in the day CT angiogram of the chest with no PE, mild interstitial alveolar infiltrates with minimal effusions consistent with congestion. 02/02/2024: Overall the patient tells me she is doing better than yesterday although she cannot quantitate this and can not tell me what is better. She still says she has some labored breathing. Her cough is the same and she says it is dry although loose. The patient does not know if she slept last night with the noninvasive ventilator on. She does remember being cold last night. White blood cell count 7.8, creatinine 0.8. Patient wore the hospital noninvasive ventilator with the AVAPS mode rate of 14, tidal volume 450, EPAP 7, minimal inspiratory pressure 8, maximal inspiratory pressure 25, Inspiratory time 1.0, rise of 1 and 32% FiO2. ABG prior to removal of the mask was 7.39/61/53. Patient had an overnight oximetry on these studies with recording duration of 6 hours and 28 minutes. Average saturation 89%. Low saturation 83%. Time with saturation less than or equal to 88% was 122 minutes, oxygen desaturation index 8.9. Her weight today is 71.5 with an admission weight of 67.3. 02/03/24: Patient tells me she feels better today although she can not tell me why she feels better her what symptoms are better. Overall she complained she is weak but has no shortness of breath at rest. She states her breathing is better. yesterday she walked 10 feet and she said she got weak but not short of breath. Physical therapy note states unsteady gait due to intermittent tremors -shaking during gait. Saturations 95% prior to gait at rest decreased to 87 following gait and recovered to 90s with rest. Patient is currently on 5 L nasal cannula saturations 91%. Weight today is 71.9 with an admission weight of 67.3. Patient walked with physical therapy yesterday 20 ft x 2. Patient wore the home Belinda through via med with settings rate of 14, tidal volume 500, EPAP minimum 5, EPAP maximum 10, pressure support minimum 5, pressure support maximum 25 with 5 L bleed in. The patient said she did well with a fullface mask and that it was comfortable and she slept. ABG prior to removal was 7.37/62/75. Overnight oximetry on these settings with recording duration of 7 hours and 32 minutes. Average saturation 93%. Low saturation 87%. Time with saturation less than or equal to 88% was 7 minutes. Oxygen desaturation 0.6. Blood pressure low yesterday given albumin. 02/04/24: patient tells me she continues to improve although it is hard for her to quantitate her improvement. Overall she states she is breathing normal. She says her cough is normal with no phlegm and no hemoptysis. She is afebrile. White blood cell count 7.5, creatinine 1.3. When I enter the room the patient was on 5 L nasal cannula saturations 95%. I decreased her to 3 L nasal cannula and her saturations were 93%. Patient wore the home Belinda through via med with settings rate of 20, tidal volume 500, EPAP minimum 5, EPAP maximum 10, pressure support minimum 5, pressure support maximum 25 with 7 L bleed in. she said she slept well with this and had no issues. ABG prior to removal was 7.41/59/76. patient an overnight oximetry with recording duration 6 hours 21 minutes. Average saturation 96%. Low saturation 89%. Time with saturation less than or equal to 88% was 0 minutes. Oxygen desaturation index 1.4. DATA: 02/01/24: Clinical Indication: Pulmonary embolus CT Scan of the Chest with Contrast: Technique: Contiguous sections were acquired throughout the chest after intravenous administration of 100 cc of Omnipaque 350. Dose reduction technique was used on this scan by utilizing automated exposure control and iterative reconstruction technique. The dose-length product (DLP) was 623.41 mGy-cm. Findings: There is no evidence of any significant mediastinal, hilar or axillary lymphadenopathy. There is no filling defect in the pulmonary arterial tree to suggest pulmonary embolus. There is no evidence of aortic dissection or aneurysm. No pericardial effusion. There are minimal bilateral pleural effusions, with bibasilar atelectatic change, right worse than left. There is probable interstitial edema.. Probable minimal patchy groundglass pulmonary edema as well. Images through the upper abdomen reveal moderate to large hiatal hernia. Question mild cirrhotic morphology of liver. T12 vertebroplasty noted. Moderate to severe compression fracture of L1 noted. There is mild compression fracture of T11. Impression: No evidence of pulmonary embolus, aortic dissection, or aortic aneurysm. Mild mixed alveolar and interstitial pulmonary edema. Minimal pleural effusions with probable bibasilar/dependent atelectatic change, right worse than left. Correlate clinically for pneumonia. Compression fractures, as above. Questionable mild cirrhotic change of the liver. Correlate clinically and with LFTs. 12/30/23: Summary 1. Left ventricular chamber dimension is normal. 2. Left ventricular systolic function is hyperdynamic, estimated at >70%. 3. There is mildly increased left ventricular wall thickness. 4. The left ventricular diastolic function is grade I diastolic dysfunction. 5. Right ventricular chamber dimension is moderately enlarged. 6. Right ventricular systolic function is normal. 7. Left atrial chamber dimension is severely enlarged. 8. Right atrial chamber dimension is severely enlarged. 9. There is mild to moderate tricuspid valve regurgitation. 10. Estimated pulmonary arterial systolic pressure is 66 mmHg. Right Ventricle Right ventricular chamber dimension is moderately enlarged. Right ventricular systolic function is normal. Right Atria Right atrial chamber dimension is severely enlarged. Atrial Septum Intact interatrial septum visualized by color flow imaging. 12/29/23: EXAMINATION: CTA chest PE protocol INDICATION: hypoxia, SHERON COMPARISON: X-ray chest, same date; CT chest 03/03/2022; CT abdomen pelvis 09/02/2023. FINDINGS: Lung parenchyma and airways: Segmental consolidation in the dependent portions of the bilateral lower lobes and right middle lobe. Patent airways. Pleura: Small left pleural fluid collection. Thoracic inlet, axillae and chest wall: Unremarkable. Thoracic aorta: Mild thoracic aortic ectasia. Moderate atherosclerotic calcifications. No dissection. Mediastinum: Moderate enlarged subcarinal and bilateral hilar lymph nodes. Hiatal hernia. Patulous esophagus. Heart and pericardium: Left ventricular hypertrophy. RV/LV ratio 1.5. Coronary artery calcifications: Moderate. Upper abdomen: Multiple hepatic hypodensities, likely representing cysts. Multiple stable pancreatic cysts. Multiple stable renal cysts. Bones: No acute osseous finding. Multiple stable compression deformities in the thoracolumbar junction. Vertebroplasty cement at T12 Pulmonary arteries: Study quality: Adequate. Small nonocclusive filling defects in several left lower lobe segmental arteries. IMPRESSION: Small nonocclusive filling defects in several left lower lobe segmental arteries. Low clot burden. The RV/LV ratio is 1.5 but this may be confounded by left ventricular hypertrophy. No septal bowing or significant hepatic vein reflux. Segmental right middle lobe and bilateral lower lobe dependent consolidations, concerning for pneumonia. Aspiration should be considered in the differential. Small left pleural effusion. Subcarinal and bilateral hilar lymphadenopathy. 10/28/23: Echo Summary 1. Left ventricular chamber dimension is normal. 2. Left ventricular systolic function is hyperdynamic, estimated at >70%. 3. There is mildly increased left ventricular wall thickness. 4. The left ventricular diastolic function is grade I diastolic dysfunction. 5. Right ventricular systolic function is normal. 6. Left atrial chamber dimension is severely enlarged. 7. There is mild mitral valve regurgitation. 8. There is mild tricuspid valve regurgitation. Right Ventricle Right ventricular chamber dimension is normal. Right ventricular systolic function is normal. Right Atria Right atrial chamber dimension is normal. Review of Systems Constitutional: Constitutional: Reports no additional constitutional complaints Eyes: Eyes: Reports no additional eye complaints ENT: Reports system reviewed and no additional complaints, except as documented Cardiovascular: Cardiovascular: Reports no additional cardiovascular complaints Respiratory: Respiratory: Reports no additional respiratory complaints Gastrointestinal: Gastrointestinal: Reports no additional gastrointestinal complaints Musculoskeletal: Musculoskeletal: Reports no additional musculoskeletal complaints Neurologic: Reports system reviewed and no additional complaints, except as documented Psychiatric: Psychiatric: Reports no additional psychiatric complaints Endocrine: Endocrine: Reports no additional endocrine complaints Hematologic/Lymphatic: Hematologic/Lymphatic: Reports no additional hematologic/lymphatic complaints Allergic/Immunologic: Allergic/Immunologic: Reports no additional allergic/immunologic complaints Exam Const: General: cooperative, healthy appearing and comfortable Orientation/consciousness: oriented to person, oriented to place and oriented to time HENMT: Head: normal to inspection Ears: hearing grossly normal bilaterally Eyes: General: appearance normal, both eyes and all related structures Neck: Neck: normal visual inspection Chest: Chest palpation & inspection: normal inspection of the chest Resp: Effort & Inspection: normal respiratory effort and able to speak in complete sentences Auscultation: crackles, no rales, no rhonchi, wheezes and lung sounds not diminished Other: 02/01 Bilateral inspiratory and expiratory squeaks and crackles 02/02 Unchanged bilateral inspiratory and expiratory squeaks and crackles. 02/03: No squeaks today, few inspiratory crackles. Overall improved. Cardio: Jugular venous distension: no JVD GI: Inspection: normal to inspection Skin: General skin exam: normal color Neuro: General: oriented to person, oriented to place and oriented to time Extrem: General: normal to inspection Psych: Appearance: grossly normal Objective Data Vital Signs Vital Signs: Vital Signs - 24 hr 02/03/24 12:00 02/03/24 10:00 02/03/24 12:00 Temperature 36.9 C Pulse Rate 94 82 101 H Respiratory Rate 20 Blood Pressure 130/64 Pulse Oximetry 92 Oxygen Delivery Oxygen Flow Rate Fraction of Inspired Oxygen 02/03/24 14:13 02/03/24 14:24 02/03/24 12:00 Temperature Pulse Rate 87 85 Respiratory Rate 18 18 Blood Pressure Pulse Oximetry 92 Oxygen Delivery Nasal Cannula Oxygen Flow Rate 6 Fraction of Inspired Oxygen 02/03/24 17:11 02/03/24 17:15 02/03/24 15:53 Temperature Pulse Rate 103 H 87 Respiratory Rate 22 H 20 Blood Pressure 130/64 Pulse Oximetry 91 Oxygen Delivery Oxygen Flow Rate Fraction of Inspired Oxygen 02/03/24 16:00 02/03/24 15:45 02/03/24 15:55 Temperature 37.2 C Pulse Rate 49 L Respiratory Rate 22 H Blood Pressure 142/62 H 140/62 117/78 Pulse Oximetry 94 Oxygen Delivery Oxygen Flow Rate Fraction of Inspired Oxygen 02/03/24 14:00 02/03/24 16:00 02/03/24 18:00 Temperature Pulse Rate 86 97 92 Respiratory Rate Blood Pressure Pulse Oximetry Oxygen Delivery Oxygen Flow Rate Fraction of Inspired Oxygen 02/03/24 16:00 02/03/24 19:55 02/03/24 20:15 Temperature Pulse Rate 92 Respiratory Rate 20 Blood Pressure Pulse Oximetry 91 91 96 Oxygen Delivery Nasal Cannula BiPAP High Flow Nasal Cannula Oxygen Flow Rate 6 6 Fraction of Inspired Oxygen 02/03/24 20:00 02/03/24 20:10 02/03/24 20:15 Temperature 36.7 C Pulse Rate 83 94 94 Respiratory Rate 24 H 20 Blood Pressure 149/119 H Pulse Oximetry 94 94 Oxygen Delivery Nasal Cannula Oxygen Flow Rate 5 Fraction of Inspired Oxygen 02/03/24 20:32 02/03/24 20:00 02/03/24 22:00 Temperature Pulse Rate 93 85 78 Respiratory Rate 20 Blood Pressure Pulse Oximetry Oxygen Delivery Oxygen Flow Rate Fraction of Inspired Oxygen 02/03/24 22:24 02/03/24 22:24 02/04/24 00:00 Temperature Pulse Rate 79 79 68 Respiratory Rate 20 Blood Pressure Pulse Oximetry 91 91 Oxygen Delivery Oxygen Flow Rate 7 Fraction of Inspired Oxygen 02/04/24 02:00 02/04/24 03:54 02/04/24 02:25 Temperature Pulse Rate 67 67 81 Respiratory Rate 20 Blood Pressure Pulse Oximetry 91 88 L Oxygen Delivery BiPAP Oxygen Flow Rate 7 Fraction of Inspired Oxygen 40 02/04/24 04:00 02/04/24 04:00 02/04/24 06:00 Temperature 36.6 C Pulse Rate 67 69 73 Respiratory Rate 20 Blood Pressure 125/72 Pulse Oximetry 94 Oxygen Delivery Oxygen Flow Rate Fraction of Inspired Oxygen 02/04/24 07:00 02/04/24 07:00 02/04/24 07:15 Temperature Pulse Rate 78 79 Respiratory Rate 20 20 Blood Pressure Pulse Oximetry 92 Oxygen Delivery High Flow Nasal Cannula Oxygen Flow Rate 5 Fraction of Inspired Oxygen 02/04/24 07:48 Temperature 36.9 C Pulse Rate 88 Respiratory Rate 18 Blood Pressure 126/78 Pulse Oximetry 88 L Oxygen Delivery Oxygen Flow Rate Fraction of Inspired Oxygen Intake/Output Intake/Output: Intake & Output 02/01/24 02/02/24 02/03/24 02/04/24 23:59 23:59 23:59 23:59 Intake Total 1270 1571 1832 444 Output Total 950 1400 300 Balance 1270 621 432 144 Meds/Results Medications: Active Medications Generic Name Dose Route Start Last Admin Trade Name Freq PRN Reason Stop Dose Admin Acetaminophen 650 mg 01/31/24 12:16 02/03/24 17:10 Acetaminophen 325 Mg Tablet PO 650 mg Q4H PRN Administration Pain Albuterol 2.5 mg 01/30/24 16:38 02/03/24 17:11 Albuterol Sulfate Neb 2.5 Mg/3 Ml Inh INHALATION 2.5 mg Q8H PRN Administration wheezing Albuterol/Ipratropium 3 ml 02/01/24 14:00 02/04/24 07:00 Ipratropium 0.5 Mg/Albuterol Sulfate 2.5 Mg Ampul.Neb 3 Ml NEBULIZE 3 ml Q6HRT MASTER Administration Amlodipine Besylate 5 mg 01/31/24 09:00 02/02/24 08:08 Amlodipine Besylate 5 Mg Tablet PO 5 mg DAILY MASTER Administration Apixaban 5 mg 01/30/24 17:00 02/03/24 16:21 Apixaban 5 Mg Tablet PO 5 mg BID MASTER Administration Aripiprazole 2 mg 01/31/24 09:00 02/03/24 09:18 Aripiprazole 2 Mg Tablet PO 2 mg DAILY MASTER Administration Atorvastatin Calcium 80 mg 01/30/24 21:00 02/03/24 20:04 Atorvastatin 40 Mg Tablet PO 80 mg HS MASTER Administration Bisacodyl 5 mg 01/30/24 16:38 Bisacodyl 5 Mg Tablet Ec PO DAILY PRN constipation Budesonide 0.5 mg 02/01/24 20:00 02/04/24 07:00 Budesonide Respule Neb 0.5 Mg/2 Ml Amp INHALATION 0.5 mg Q12HRT MASTER Administration Citalopram Hydrobromide 20 mg 01/30/24 21:00 02/03/24 20:04 Citalopram Hydrobromide 20 Mg Tablet PO 20 mg QHS MASTER Administration Docusate Sodium 100 mg 01/30/24 17:00 02/03/24 16:21 Docusate Sodium 100 Mg Capsule PO 100 mg BID MASTER Administration Ferrous Sulfate 325 mg 02/01/24 09:00 02/03/24 09:17 Ferrous Sulfate [address] PO 325 mg Q48H MASTER Administration Furosemide 20 mg 01/31/24 09:00 02/02/24 08:03 Furosemide 20 Mg Tablet PO 20 mg DAILY MASTER Administration Furosemide 20 mg 02/03/24 09:00 Furosemide Inj 40 Mg/4 Ml Vial IV PUSH DAILY MASTER Guaifenesin 1,200 mg 02/01/24 10:10 02/03/24 20:04 Guaifenesin 12 Hr 600 Mg Tabcr PO 1,200 mg Q12HR MASTER Administration Memantine 5 mg 01/30/24 21:00 02/03/24 20:04 Memantine 5 Mg Tablet PO 5 mg Q12HR MASTER Administration Mirtazapine 15 mg 01/30/24 21:00 02/03/24 20:04 Mirtazapine 15 Mg Tablet PO 15 mg HS MASTER Administration Oxycodone HCl 5 mg 01/30/24 16:38 02/03/24 20:05 Oxycodone Hcl (*Crx) 5 Mg Tab Ir PO 5 mg Q4H PRN Administration Pain Rated 4-6 Pantoprazole Sodium 40 mg 01/31/24 09:00 02/03/24 09:18 Pantoprazole 40 Mg Tablet PO 40 mg QAM MASTER Administration Perflutren Lipid Microsphere 0 ml 02/01/24 09:54 Perflutren Lipid Microspheres 1.5 Ml Vial Diluted To 10 Ml Total Volume IV PUSH 02/04/24 09:54 ONCE PRN adequate visualization Protocol Polyethylene Glycol 17 gm 01/30/24 16:38 02/01/24 10:18 Polyethylene Glycol 3350 17 Gm Powd.Pack PO 17 gm QAM PRN Administration Constipation Pramipexole Dihydrochloride 0.5 mg 01/30/24 21:00 02/03/24 20:04 Pramipexole 0.5 Mg Tablet PO 0.5 mg HS MASTER Administration Pregabalin 100 mg 01/30/24 21:00 02/03/24 20:04 Pregabalin (*Crx) 50 Mg Capsule PO 100 mg Q12HR MASTER Administration Trazodone HCl 50 mg 01/30/24 21:00 02/03/24 20:04 Trazodone Hcl 50 Mg Tablet PO 50 mg HS MASTER Administration Vitamin D 1,000 units 01/31/24 09:00 02/03/24 09:18 Cholecalciferol 1,000 Units Tablet PO 1,000 units DAILY MASTER Administration Radiology Results: ITS Impressions Chest CTA 02/01/24 12:08 Impression: No evidence of pulmonary embolus, aortic dissection, or aortic aneurysm. Mild mixed alveolar and interstitial pulmonary edema. Minimal pleural effusions with probable bibasilar/dependent atelectatic change, right worse than left. Correlate clinically for pneumonia. Compression fractures, as above. Questionable mild cirrhotic change of the liver. Correlate clinically and with LFTs. Chest X-Ray 02/02/24 08:37 IMPRESSION: Bibasilar pneumonia. Pulmonary edema versus pneumonitis bilaterally. Sliding hiatus hernia. Labs Labs: Laboratory Results - last 24 hr 01/30/24 02/04/24 02/04/24 18:35 04:46 04:58 WBC 7.5 RBC 3.01 L Hgb 8.6 L Hct 29.6 L MCV 98.3 MCH 28.6 MCHC 29.1 L RDW 16.8 H Plt Count 130 L MPV 10.1 Immature Gran % (Auto) 0.5 Neut % (Auto) 74.8 H Lymph % (Auto) 15.8 L [place] % (Auto) 6.3 Eos % (Auto) 2.5 Baso % (Auto) 0.1 L Lymph # (Auto) 1.19 [place] # (Auto) 0.5 Eos # (Auto) 0.2 Baso # (Auto) 0.0 Abs Immat Gran (auto) 0.04 H Absolute Neuts (auto) 5.6 Absolute Nucleated RBC 0.000 Nucleated RBC % 0.0 Platelet Estimate Decreased % Immature Plt Fraction 4.1 Hypochromasia 1+ Stomatocytes 1+ Schistocytes None seen Puncture Site Right radial ABG pH 7.405 ABG pCO2 58.8 H ABG pO2 76.0 L ABG PO2/FiO2 Ratio 1.58 ABG HCO3 36.0 H ABG O2 Saturation 94.9 L ABG O2 Content 12.1 L ABG Base Excess 9.9 A-a Gradient 199.8 Oxyhemoglobin 93.9 Total Hemoglobin 9.1 L O2 Delivery Device Other device O2 Liters/Min 7.0 FiO2 48 Sodium 142 Potassium 3.6 Chloride 101 Carbon Dioxide 38 H Anion Gap 3 L BUN 23 H Creatinine 1.30 H Estim Creat Clear Calc Not Reportable Estimated GFR 39 L Glucose 104 Calcium 8.4 Total Bilirubin 0.8 AST 17 ALT 15 Alkaline Phosphatase 68 NT-Pro-B Natriuret Pep 721 H Total Protein 6.0 L Albumin 3.5 Ur L.pneumophila Ag Not detected Urine Pneumococcal Ag Detected A
[2024-02-04] MEDS: guaiFENesin 12 HR 600 MG TABCR 1200 MG PO ×2 (10:32→21:18)
[2024-02-04] MEDS: DOCUSATE SODIUM 100 MG CAPSULE PO ×2 (10:32→16:01)
[2024-02-04] MEDS: PANTOPRAZOLE 40 MG TABLET PO (10:32)
[2024-02-04] MEDS: APIXABAN 5 MG TABLET PO ×2 (10:32→16:01)
[2024-02-04] MEDS: PREGABALIN (*CRX) 50 MG CAPSULE 100 MG PO ×2 (10:32→21:16)
[2024-02-04] MEDS: CHOLECALCIFEROL 1,000 UNITS TABLET 1000 UNITS PO (10:32)
[2024-02-04] MEDS: MEMANTINE 5 MG TABLET PO ×2 (10:32→21:16)
[2024-02-04] MEDS: ARIPiprazole 2 MG TABLET PO (10:32)
[2024-02-04] MEDS: polyethylene glycoL 3350 17 GM POWD.PACK PO (11:56)
--- NOTE | 2024-02-04 12:03 | P.PNIM_ITS ---
Progress Note: A&P Assessment and Plan (1) Pneumonia: Qualifiers: Laterality: left Lung location: lower lobe of lung Pneumonia type: due to unspecified organism Qualified Code(s): J18.9 - Pneumonia, unspecified organism Code(s): J18.9 - Pneumonia, unspecified organism Status: Acute Assessment and Plan: * Chest x-ray suggesting pneumonia versus atelectasis * Pulmonary consulted and thinks that this is more atelectasis versus pneumonia * Antibiotic Ceftriaxone 1 gm IVPB q 24. * Continue incentive spirometer * Continue flutter valve * Continue DuoNebs, P dose tonight and guaifenesin * Continue EZ Pap therapy, pulmonology to adjust settings * Respiratory panel negative for RSV, COVID, influenza a and B * Blood cultures showing no growth to date on preliminary read * Sputum culture was negative * Chest x-ray today showed IMPRESSION: Improved pulmonary vascular congestion when compared with previous study (02/02/2024). Small bibasilar infiltrates are suspected. (2) Acute exacerbation of chronic obstructive airways disease: Code(s): J44.1 - Chronic obstructive pulmonary disease with (acute) exacerbation Status: Acute Assessment and Plan: * See above * [facility] consult (3) Pulmonary edema: Code(s): J81.1 - Chronic pulmonary edema Status: Acute Assessment and Plan: * She was noted to have moderate pulmonary hypertension from an echo on 06/11/2020. Echocardiogram on 12/30/2023 shown an estimated pulmonary arterial systolic pressure of 66 mmHg, grade 1 diastolic dysfunction with left atrial enlargement and right atrial enlargement, [id number] tricuspid valve regurgitation, normal LV systolic function with an estimated EF of 70%. * Echocardiogram done this admission was limited due to no Doppler and showed a normal LV systolic function with an estimated EF of 65-70%, mildly sclerotic aortic valve without stenosis. * Blood pressure medications were held yesterday and today has shown significant improvement in her blood pressure. * We hold Lasix today. * Plan discussed with catering sales manager and he agrees * Chest x-ray today showed IMPRESSION: Improved pulmonary vascular congestion when compared with previous study (02/02/2024). Small bibasilar infiltrates are suspected. (4) Hypertension: Code(s): I10 - Essential (primary) hypertension Status: Acute Assessment and Plan: * Currently on medications are being held due to hypotension * Blood pressure 107/74 (5) Weakness: Code(s): R53.1 - Weakness Status: Acute Assessment and Plan: * Continue fall precaution * Continue PT and OT * Case management following for outpatient rehab needs Subjective Date/time seen: 02/04/24 12:03 Interval history: Patient denies any fever, chills, nausea, vomiting, diarrhea, abdominal pain, chest pain, or palpitations. Patient with shortness of breath on exertion. She is currently on 5 L nasal cannula at rest. She normally wears 1 L at rest, 2 L with activity, and 2 L with sleep. Patient requiring BIPAP at times throughout the day. Pulmonology is following. Patient agreeable to a [facility] consult. Review of Systems Review of Systems: All systems reviewed & are unremarkable except as noted in HPI and below Exam 2 Const: General: no acute distress HENMT: Mouth: Yes moist mucous membranes Neck: Neck: supple Resp: Effort & Inspection: normal respiratory effort Auscultation: clear to auscultation bilaterally Other: currently on 5 L nasal cannula, tachypnea present, no use of accessory muscles seen Cardio: Rate: regular rate Rhythm: regular rhythm Other: SR- 76 GI: GI Palp: Yes Soft to palpation Auscultation: normal bowel sounds Neuro: Other: A&Ox4. Extrem: General: no pedal edema Psych: Affect: normal affect Objective Data Vital Signs Vital Signs: Vital Signs - 24 hr 02/03/24 14:13 02/03/24 14:24 02/03/24 17:11 Temperature Pulse Rate 87 85 103 H Respiratory Rate 18 18 22 H Blood Pressure Pulse Oximetry Oxygen Delivery Oxygen Flow Rate Fraction of Inspired Oxygen 02/03/24 17:15 02/03/24 15:53 02/03/24 16:00 Temperature 98.9 F Pulse Rate 87 49 L Respiratory Rate 20 22 H Blood Pressure 130/64 142/62 H Pulse Oximetry 91 94 Oxygen Delivery Oxygen Flow Rate Fraction of Inspired Oxygen 02/03/24 15:45 02/03/24 15:55 02/03/24 14:00 Temperature Pulse Rate 86 Respiratory Rate Blood Pressure 140/62 117/78 Pulse Oximetry Oxygen Delivery Oxygen Flow Rate Fraction of Inspired Oxygen 02/03/24 16:00 02/03/24 18:00 02/03/24 16:00 Temperature Pulse Rate 97 92 Respiratory Rate Blood Pressure Pulse Oximetry 91 Oxygen Delivery Nasal Cannula Oxygen Flow Rate 6 Fraction of Inspired Oxygen 02/03/24 19:55 02/03/24 20:15 02/03/24 20:00 Temperature 98.1 F Pulse Rate 92 83 Respiratory Rate 20 24 H Blood Pressure 149/119 H Pulse Oximetry 91 96 94 Oxygen Delivery BiPAP High Flow Nasal Cannula Oxygen Flow Rate 6 Fraction of Inspired Oxygen 02/03/24 20:10 02/03/24 20:15 02/03/24 20:32 Temperature Pulse Rate 94 94 93 Respiratory Rate 20 20 Blood Pressure Pulse Oximetry 94 Oxygen Delivery Nasal Cannula Oxygen Flow Rate 5 Fraction of Inspired Oxygen 02/03/24 20:00 02/03/24 22:00 02/03/24 22:24 Temperature Pulse Rate 85 78 79 Respiratory Rate 20 Blood Pressure Pulse Oximetry 91 Oxygen Delivery Oxygen Flow Rate Fraction of Inspired Oxygen 02/03/24 22:24 02/04/24 00:00 02/04/24 02:00 Temperature Pulse Rate 79 68 67 Respiratory Rate Blood Pressure Pulse Oximetry 91 Oxygen Delivery Oxygen Flow Rate 7 Fraction of Inspired Oxygen 02/04/24 03:54 02/04/24 02:25 02/04/24 04:00 Temperature Pulse Rate 67 81 67 Respiratory Rate 20 Blood Pressure Pulse Oximetry 91 88 L Oxygen Delivery BiPAP Oxygen Flow Rate 7 Fraction of Inspired Oxygen 40 02/04/24 04:00 02/04/24 06:00 02/04/24 07:00 Temperature 97.8 F Pulse Rate 69 73 Respiratory Rate 20 Blood Pressure 125/72 Pulse Oximetry 94 92 Oxygen Delivery High Flow Nasal Cannula Oxygen Flow Rate 5 Fraction of Inspired Oxygen 02/04/24 07:00 02/04/24 07:15 02/04/24 07:48 Temperature 98.4 F Pulse Rate 78 79 88 Respiratory Rate 20 20 18 Blood Pressure 126/78 Pulse Oximetry 88 L Oxygen Delivery Oxygen Flow Rate Fraction of Inspired Oxygen 02/04/24 11:49 Temperature 97.8 F Pulse Rate 88 Respiratory Rate 24 H Blood Pressure 107/74 Pulse Oximetry 94 Oxygen Delivery Oxygen Flow Rate Fraction of Inspired Oxygen Intake/Output Intake/Output: Intake & Output 02/01/24 02/02/24 02/03/24 02/04/24 23:59 23:59 23:59 23:59 Intake Total 1270 1571 1832 444 Output Total 950 1400 300 Balance 1270 621 432 144 Meds/Results Medications: Active Medications Generic Name Dose Route Start Last Admin Trade Name Freq PRN Reason Stop Dose Admin Acetaminophen 650 mg 01/31/24 12:16 02/03/24 17:10 Acetaminophen 325 Mg Tablet PO 650 mg Q4H PRN Administration Pain Albuterol 2.5 mg 01/30/24 16:38 02/03/24 17:11 Albuterol Sulfate Neb 2.5 Mg/3 Ml Inh INHALATION 2.5 mg Q8H PRN Administration wheezing Amlodipine Besylate 5 mg 01/31/24 09:00 02/02/24 08:08 Amlodipine Besylate 5 Mg Tablet PO 5 mg DAILY MASTER Administration Apixaban 5 mg 01/30/24 17:00 02/04/24 10:32 Apixaban 5 Mg Tablet PO 5 mg BID MASTER Administration Aripiprazole 2 mg 01/31/24 09:00 02/04/24 10:32 Aripiprazole 2 Mg Tablet PO 2 mg DAILY MASTER Administration Atorvastatin Calcium 80 mg 01/30/24 21:00 02/03/24 20:04 Atorvastatin 40 Mg Tablet PO 80 mg HS MASTER Administration Bisacodyl 5 mg 01/30/24 16:38 Bisacodyl 5 Mg Tablet Ec PO DAILY PRN constipation Citalopram Hydrobromide 20 mg 01/30/24 21:00 02/03/24 20:04 Citalopram Hydrobromide 20 Mg Tablet PO 20 mg QHS MASTER Administration Docusate Sodium 100 mg 01/30/24 17:00 02/04/24 10:32 Docusate Sodium 100 Mg Capsule PO 100 mg BID MASTER Administration Ferrous Sulfate 325 mg 02/01/24 09:00 02/03/24 09:17 Ferrous Sulfate [address] PO 325 mg Q48H MASTER Administration Fluticasone/Umeclidinium/Vilanterol 1 puff 02/04/24 10:00 Fluticasone/Umeclidin/Vilanter 100-62.5-25 Mcg Ellipta INHALATION DAILYRT MASTER Furosemide 20 mg 01/31/24 09:00 02/02/24 08:03 Furosemide 20 Mg Tablet PO 20 mg DAILY MASTER Administration Furosemide 20 mg 02/03/24 09:00 Furosemide Inj 40 Mg/4 Ml Vial IV PUSH DAILY MASTER Guaifenesin 1,200 mg 02/01/24 10:10 02/04/24 10:32 Guaifenesin 12 Hr 600 Mg Tabcr PO 1,200 mg Q12HR MASTER Administration Ceftriaxone Sodium 1 gm in 50 mls @ 100 mls/hr 02/04/24 16:00 Rocephin 1 Gm/Ns 50 Ml IVPB Q24H MASTER Memantine 5 mg 01/30/24 21:00 02/04/24 10:32 Memantine 5 Mg Tablet PO 5 mg Q12HR MASTER Administration Mirtazapine 15 mg 01/30/24 21:00 02/03/24 20:04 Mirtazapine 15 Mg Tablet PO 15 mg HS MASTER Administration Oxycodone HCl 5 mg 01/30/24 16:38 02/03/24 20:05 Oxycodone Hcl (*Crx) 5 Mg Tab Ir PO 5 mg Q4H PRN Administration Pain Rated 4-6 Pantoprazole Sodium 40 mg 01/31/24 09:00 02/04/24 10:32 Pantoprazole 40 Mg Tablet PO 40 mg QAM MASTER Administration Polyethylene Glycol 17 gm 01/30/24 16:38 02/04/24 11:56 Polyethylene Glycol 3350 17 Gm Powd.Pack PO 17 gm QAM PRN Administration Constipation Pramipexole Dihydrochloride 0.5 mg 01/30/24 21:00 02/03/24 20:04 Pramipexole 0.5 Mg Tablet PO 0.5 mg HS MASTER Administration Pregabalin 100 mg 01/30/24 21:00 02/04/24 10:32 Pregabalin (*Crx) 50 Mg Capsule PO 100 mg Q12HR MASTER Administration Trazodone HCl 50 mg 01/30/24 21:00 02/03/24 20:04 Trazodone Hcl 50 Mg Tablet PO 50 mg HS MASTER Administration Vitamin D 1,000 units 01/31/24 09:00 02/04/24 10:32 Cholecalciferol 1,000 Units Tablet PO 1,000 units DAILY MASTER Administration Radiology Results: ITS Impressions Chest CTA 02/01/24 12:08 Impression: No evidence of pulmonary embolus, aortic dissection, or aortic aneurysm. Mild mixed alveolar and interstitial pulmonary edema. Minimal pleural effusions with probable bibasilar/dependent atelectatic change, right worse than left. Correlate clinically for pneumonia. Compression fractures, as above. Questionable mild cirrhotic change of the liver. Correlate clinically and with LFTs. Chest X-Ray 02/04/24 09:27 IMPRESSION: Improved pulmonary vascular congestion when compared with previous study (02/02/2024). Small bibasilar infiltrates are suspected. Foot X-Ray 02/04/24 09:44 IMPRESSION: 1. Arthrodesis procedures of second-fourth proximal interphalangeal joints. 2. Polyarticular osteoarthritis. Ankle X-Ray 02/04/24 09:47 IMPRESSION: 1. No fracture. Labs Labs: Laboratory Results - last 24 hr 01/30/24 02/04/24 02/04/24 18:35 04:46 04:58 WBC 7.5 RBC 3.01 L Hgb 8.6 L Hct 29.6 L MCV 98.3 MCH 28.6 MCHC 29.1 L RDW 16.8 H Plt Count 130 L MPV 10.1 Immature Gran % (Auto) 0.5 Neut % (Auto) 74.8 H Lymph % (Auto) 15.8 L [place] % (Auto) 6.3 Eos % (Auto) 2.5 Baso % (Auto) 0.1 L Lymph # (Auto) 1.19 [place] # (Auto) 0.5 Eos # (Auto) 0.2 Baso # (Auto) 0.0 Abs Immat Gran (auto) 0.04 H Absolute Neuts (auto) 5.6 Absolute Nucleated RBC 0.000 Nucleated RBC % 0.0 Platelet Estimate Decreased % Immature Plt Fraction 4.1 Hypochromasia 1+ Stomatocytes 1+ Schistocytes None seen Puncture Site Right radial ABG pH 7.405 ABG pCO2 58.8 H ABG pO2 76.0 L ABG PO2/FiO2 Ratio 1.58 ABG HCO3 36.0 H ABG O2 Saturation 94.9 L ABG O2 Content 12.1 L ABG Base Excess 9.9 A-a Gradient 199.8 Oxyhemoglobin 93.9 Total Hemoglobin 9.1 L O2 Delivery Device Other device O2 Liters/Min 7.0 FiO2 48 Sodium 142 Potassium 3.6 Chloride 101 Carbon Dioxide 38 H Anion Gap 3 L BUN 23 H Creatinine 1.30 H Estim Creat Clear Calc Not Reportable Estimated GFR 39 L Glucose 104 Calcium 8.4 Total Bilirubin 0.8 AST 17 ALT 15 Alkaline Phosphatase 68 NT-Pro-B Natriuret Pep 721 H Total Protein 6.0 L Albumin 3.5 Ur L.pneumophila Ag Not detected Urine Pneumococcal Ag Detected A Quality VTE Prophylaxis VTE prophylaxis: pharmacologic ordered
[2024-02-04] MEDS: ACETAMINOPHEN 325 MG TABLET 650 MG PO (12:24)
[2024-02-04] MEDS: oxyCODONE HCL (*CRX) 5 MG TAB IR PO (15:53)
[2024-02-04] MEDS: ATORVASTATIN 40 MG TABLET 80 MG PO (21:16)
[2024-02-04] MEDS: MIRTAZAPINE 15 MG TABLET PO (21:16)
[2024-02-04] MEDS: CITALOPRAM HYDROBROMIDE 20 MG TABLET PO (21:16)
[2024-02-04] MEDS: traZODone HCL 50 MG TABLET PO (21:17)
[2024-02-04] MEDS: PRAMIPEXOLE 0.5 MG TABLET PO (21:17)
[2024-02-05] VITALS (26 sets, daily range): BP systolic 90–154; BP diastolic 56–87; PULSE 63–93; RESP 18–28; TEMP 36.4–36.9; O2SAT 89–95
[2024-02-05 02:03] LABS: Adenovirus DNA Not Detected (Not Detected); Chlamydophila pneumoniae Not Detected (Not Detected); Coronavirus 229E Not Detected (Not Detected); Coronavirus HKU1 Not Detected (Not Detected); Coronavirus NL63 Not Detected (Not Detected); Coronavirus OC43 Not Detected (Not Detected); Human Metapneumovirus Not Detected (Not Detected); Human Parainfluenza Virus 1 Not Detected (Not Detected); Human Parainfluenza Virus 2 Not Detected (Not Detected); Human Parainfluenza Virus 3 Not Detected (Not Detected); Human Parainfluenza Virus 4 Not Detected (Not Detected); Human RSV B Not Detected (Not Detected); Influenza A Not Detected (Not Detected); Influenza B Not Detected (Not Detected); Mycoplasma pneumoniae Not Detected (Not Detected); Rhinovirus/Enterovirus Not Detected (Not Detected)
[2024-02-05] MEDS: oxyCODONE HCL (*CRX) 5 MG TAB IR PO (04:36)
[2024-02-05 05:08] LABS: Basophils Percent Auto 0.3 % (0.2-1.2); Eosinophils Absolute Auto 0.2 K/mm3 (0-0.3); Hematocrit 30.9 % (37.0-47.0); Hemoglobin 9.1 g/dL (12.0-15.0); Immature Granulocyte Absolute 0.04 K/mm3 (0.00-0.031); Immature Granulocyte Percent A 0.5 % (0-0.5); Immature Platelet Fraction Pct 4.3 % (0.9-11.2); Lymphocytes Absolute Auto 1.38 K/mm3 (0.9-3.2); Mean Corpuscular HGB Conc 29.4 g/dl (32-36); Mean Corpuscular Hemoglobin 28.7 pg (26-34); Mean Corpuscular Volume 97.5 fl (80-100); Mean Platelet Volume 10.3 fl (7.4-10.4); Monocytes Absolute Auto 0.4 K/mm3 (0.1-0.6); Monocytes Percent Auto 5.7 % (2.6-8.5); Neutrophils Absolute Auto 5.6 K/mm3 (1.3-6.7); Neutrophils Percent Auto 72.5 % (45.5-73.1); Platelet Count Result 137 k/mm3 (150-375); Red Blood Count 3.17 M/mm3 (4.2-5.4); Red Cell Distribution Width 16.2 % (11.5-14.5); White Blood Count 7.7 K/mm3 (4.5-10.0)
[2024-02-05 05:19] LABS: Alanine Aminotransferase 15 U/L (6-35); Albumin Level 3.5 g/dL (3.5-5.1); Alkaline Phosphatase 75 U/L (38-126); Anion Gap 5 mmol/L (4-12); Aspartate Amino Transferase 20 U/L (14-36); Bilirubin,Total 0.8 mg/dL (0.2-1.3); Blood Urea Nitrogen 21 mg/dL (7-17); Calcium 8.4 mg/dL (8.4-10.2); Carbon Dioxide 37 mmol/L (22-30); Chloride 98 mmol/L (98-107); Estimated Glomerular Filt Rate 52; Glucose 120 mg/dL (65-110); Potassium 3.5 mmol/L (3.4-5.0); Sodium 140 mmol/L (137-145)
[2024-02-05 05:30] LABS: Anisocytosis 1+; Hypochromasia 1+; Microcytosis 1+ (NORMAL); Ovalocytes 1+; Platelet Estimate Slightly Decreased (Adequate); Schistocytes None Seen; Tear Drop Cells 1+
[2024-02-05] MEDS: FLUTICASONE/UMECLIDIN/VILANTER 100-62.5-25 MCG ELLIPTA 1 PUFF INHALATION (07:08)
--- NOTE | 2024-02-05 08:34 | PM.PNPUL ---
Progress Note: A&P Assessment and Plan (1) COPD (chronic obstructive pulmonary disease): Code(s): J44.9 - Chronic obstructive pulmonary disease, unspecified Status: Acute Assessment and Plan: Regarding her COPD: 35 pack year tobacco, quit 8-10 years ago, chronic hypoxemic respiratory failure wearing 1 L at rest, 2 L with activity and 2 L sleep. Chronic hypercarbic respiratory failure on noninvasive ventilation with the AVAPS AE mode and 2 L bleed in. previously followed at [place] Last office visit note 02/18/2023. Severe COPD per PFT in 2016. she was not interested in pulmonary rehabilitation. She is current on all her vaccines. Continue trilogy 100, albuterol inhaler nebulized rescue. 3 L with activity, 1 L at rest and 2 L at night. Noncompliant with CPAP and uninterested in restudy or trouble shooting. 02/01/24: patient has a few end-expiratory expiratory wheezes today. She has no increase in her phlegm production she does have worsening dyspnea on exertion. Plan: I will change the patient from her inhaled trilogy to nebulized DuoNebs q.6 hours and nebulized budesonide 500 mcg q.12 hours. Patient also has difficulty expectorating and I will add guaifenesin 1200 mg p.o. b.i.d.. I will add a Cornet flutter valve q.4 hours while awake. I will send an alpha 1 anti trypsin genotype on 02/01. 02/02/2024: Overall the patient tells me she is doing better than yesterday although she cannot quantitate this and can not tell me what is better. She still says she has some labored breathing. Her cough is the same and she says it is dry although loose. The patient does not know if she slept last night with the noninvasive ventilator on. She does remember being cold last night. White blood cell count 7.8, creatinine 0.8. Plan: Continue DuoNebs q.6 hours and nebulized budesonide 500 mcg q.12 hours. Continue guaifenesin 1200 mg p.o. b.i.d. and continue Cornet flutter valve q.4 hours while awake and EzPAP treatment for atelectasis. 02/03/24: Patient tells me she feels better today although she can not tell me why she feels better her what symptoms are better. Overall she complained she is weak but has no shortness of breath at rest. She states her breathing is better. yesterday she walked 10 feet and she said she got weak but not short of breath. Physical therapy note states unsteady gait due to intermittent tremors -shaking during gait. Saturations 95% prior to gait at rest decreased to 87 following gait and recovered to 90s with rest. Patient is currently on 5 L nasal cannula saturations 91%. Patient walked with physical therapy yesterday 20 ft x 2. Plan: Continue DuoNebs q.6 and nebulized budesonide 500 q.12, guaifenesin 1200, Cornet flutter valve and EzPAP. 02/04/24: patient tells me she continues to improve although it is hard for her to quantitate her improvement. Overall she states she is breathing normal. She says her cough is normal with no phlegm and no hemoptysis. She is afebrile. White blood cell count 7.5, creatinine 1.3. When I enter the room the patient was on 5 L nasal cannula saturations 95%. I decreased her to 3 L nasal cannula and her saturations were 93%. Plan: I will discontinue nebulizers and place the patient on trelegy 100. I will continue guaifenesin 1200 mg p.o. b.i.d., and EzPAP. Goal saturation 90-94%. Will wean as tolerated. 02/05/24: Patient tells me she feels better each day. States her breathing is normal. Cough is normal with no phlegm. She is afebrile with white blood cell count 7.7, creatinine 1.0. currently she is on 7 L nasal cannula saturations 91%. goal saturation 90-94%, wean oxygen as tolerated. Stable for discharge from a pulmonary perspective on 02/05/2024 on these pulmonary medications: trelegy 100-60 2.5-25 at 1 puff q.day rescue albuterol 2 puffs q. 4 hour p.r.n. shortness of breath or wheezing Rescue albuterol 2.5 mg nebs q.4 hours p.r.n. shortness of breath or wheezing guaifenesin 600 mg p.o. q.12 hours p.r.n. Eliquis 5 mg PO BID oxygen at rest and with ambulation per home O2 assessment which is orderd. when she naps or sleeps: home Belinda through [employer] with [id number] settings rate of 20, tidal volume 500, EPAP minimum 5, EPAP maximum 10, pressure support minimum 5, pressure support maximum 25 with 7 L bleed in. Follow-up in the Pulmonary Clinic with previously scheduled appointment on 02/16/2024. Discussed with Flaquita Barnes, will sign off, call with questions. (2) Pneumonia: Qualifiers: Laterality: left Lung location: lower lobe of lung Pneumonia type: due to unspecified organism Qualified Code(s): J18.9 - Pneumonia, unspecified organism Code(s): J18.9 - Pneumonia, unspecified organism Status: Acute Assessment and Plan: Discharged from [facility] on 12/10/2019 for status post vancomycin and cefepime for pneumonia. Discharged on Augmentin. Readmitted 12/28 with PE and treated for pneumonia with cefepime and vanco. Also treated for COPD exacerbation with Solu-Medrol and DuoNebs. Transition to azithromycin. Discharged to rehabilitation center and then to assisted living at [place] on no antibiotics on 01/22/2024. 02/01/24: currently the patient was readmitted with weakness of the arms and legs and worsening shortness of breath. She has persistent cough that is unchanged from 12/29/2023 with no increased phlegm production or chest pain. Her admission white blood cell count was 11.3. She has been afebrile. She has been treated with ceftriaxone and azithromycin since 01/30/2024. Review of her imaging on 01/30/2024 demonstrates small lung volumes with left lower lobe infiltrate and compared to 01/17/2024 the right lower lobe and left lower infiltrates are improved. Blood cultures are negative. COVID influenza and RSV RT PCR study are negative. Plan: I will continue ceftriaxone and azithromycin, day 3. I will send a MRSA nasal swab. I will send a extended respiratory pathogen panel. I will order CTA of the chest to reassess infiltrates. Overall my clinical suspicion for bacterial pneumonia is low and I will not broaden her antibiotic coverage at this time. Urine Legionella, urine pneumococcal studies pending. I will send a mycoplasma IgM on 02/02/2024. 02/02/24: Patient is afebrile. White blood cell count 7.8, procalcitonin 0.1 yesterday, CT scan with diffuse interstitial alveolar infiltrates with some atelectasis but no focal infiltrates suggesting pneumonia. MRSA swab negative. Plan: Patient is on day 4 ceftriaxone and azithromycin. Will plan to finish 5 day treatment. Blood cultures negative time 2. Urine Legionella, urine pneumococcal, serum mycoplasma IgM and respiratory pathogen panel pending. 02/03/24: Patient still has dry cough but this is improving. Afebrile. White blood cell count 9.1. Plan: Day 5 ceftriaxone and azithromycin and will discontinue after today. Blood culture negative. Urine Legionella, pneumococcal and serum IgM, and respiratory pathogen panel pending. 02/03: Patient afebrile, white blood cell count 7.5, urine streptococcal antigen is positive. Urine Legionella negative. Mycoplasma IgM and respiratory pathogen panel pending. Plan: I will continue ceftriaxone at this time, day 6. 02/05/24: Afebrile, white blood cell count 7.7. Respiratory pathogen panel negative. Mycoplasma IgM pending. Plan: Ceftriaxone, day 7. Would discontinue after today's dose. (3) Chronic respiratory failure with hypoxia and hypercapnia: Code(s): J96.11 - Chronic respiratory failure with hypoxia; J96.12 - Chronic respiratory failure with hypercapnia Status: Acute Assessment and Plan: Patient with COPD and history of chronic hypercarbic and hypoxemic respiratory failure and prescribed noninvasive ventilation with the AVAPS AE mode with respiratory rate auto, tidal volume 350, EPAP 5, maximum EPAP 10. Minimum pressure support 5, maximum pressure support 10 With 2 L bleed in on 10/30/2023. Patient tells me she has been wearing a fullface mask with this new machine at [facility]. Download from [employer] from 01/03/2024 through 02/01/2024. Patient is on noninvasive ventilator with the Belinda machine with a T TV-VAPS-AE mode. rate is auto. Tidal volume 350. EPAP minimum 5, EPAP maximum 10, pressure support minimum 5, pressure support maximum 12. % of days with usage greater than or equal to 4 hours is 67%. Average usage on days used is 5 hours and 50 minutes. Weekly average respiratory rate median 12-16. Weekly average tidal volume median 350-400. Weekly average EPAP 7.5. Weekly average IPAP 15.5-16. Weekly average unintentional leak 2.5-25 weekly average minute ventilation 4-6. I interpret this download as suboptimal compliance, low tidal volume and acceptable leak. Plan: I will place the patient on a hospital noninvasive ventilator with the AVAPS mode with a rate of 14, tidal volume 450, EPAP 7, minimal inspiratory pressure 8, maximal inspiratory pressure 25, I-time of 1, rise of 3 and 32% FiO2. I will obtain an ABG prior to removal and an overnight oximetry. Patient wore the hospital noninvasive ventilator with the AVAPS mode rate of 14, tidal volume 450, EPAP 7, minimal inspiratory pressure 8, maximal inspiratory pressure 25, Inspiratory time 1.0, rise of 1 and 32% FiO2. ABG prior to removal of the mask was 7.39/61/53. Patient had an overnight oximetry on these studies with recording duration of 6 hours and 28 minutes. Average saturation 89%. Low saturation 83%. Time with saturation less than or equal to 88% was 122 minutes, oxygen desaturation index 8.9. Her weight today is 71.5 with an admission weight of 67.3. Plan: we will call via [employer], to determine if they can change her Belinda home noninvasive ventilator to a rate of 18, tidal volume 500, EPAP minimum 5, EPAP maximum 10, pressure support minimum 5, pressure support maximum [address] her on 5 L bleed in. Will repeat overnight oximetry an ABG in the morning prior to removal on her home machine if this can be arranged. If the changes to the home machine cannot be arranged will place on hospital AVAPS with a rate of 14, tidal volume 500, EPAP 7, minimal inspiratory pressure 8, maximal inspiratory pressure 25, inspiratory time 1.0, Rise of 1 and 40%. 02/03/24: Patient wore the home Belinda through via [employer] with settings rate of 14, tidal volume 500, EPAP minimum 5, EPAP maximum 10, pressure support minimum 5, pressure support maximum 25 with 5 L bleed in. The patient said she did well with a fullface mask and that it was comfortable and she slept. ABG prior to removal was 7.37/62/75. Overnight oximetry on these settings with recording duration of 7 hours and 32 minutes. Average saturation 93%. Low saturation 87%. Time with saturation less than or equal to 88% was 7 minutes. Oxygen desaturation 0.6. Plan: Current home ventilator settings provide adequate but not optimal minute ventilation and I will increase her respiratory rate to 20. Patient hypoxic on 5 L bleed in will place on 6 L bleed in. Will obtain overnight oximetry and ABG in the morning. 02/03: Patient wore the home Belinda through via med with settings rate of 20, tidal volume 500, EPAP minimum 5, EPAP maximum 10, pressure support minimum 5, pressure support maximum 25 with 7 L bleed in. she said she slept well with this and had no issues. ABG prior to removal was 7.41/59/76. patient an overnight oximetry with recording duration 6 hours 21 minutes. Average saturation 96%. Low saturation 89%. Time with saturation less than or equal to 88% was 0 minutes. Oxygen desaturation index 1.4. Plan: Current home Belinda settings provide adequate ventilation and oxygenation. Will continue while in hospital and on discharge. 02/05/24: Patient wore the home Belinda through via med and said she slept from 10-430 with no issues with the mask or machine. Patient will meet with hospice later today. Plan: Tolerating her home machine well. If the patient is discharged to assisted living she will use her home Belinda through via med. If she is placed on hospice it is my understanding the hospice team will provide their own noninvasive ventilator. In that case, AVAPS AE rate of 20, tidal volume 500, EPAP minimum 5, EPAP maximum 10, pressure support minimum 5, pressure support maximum 25 with 7 L bleed in provide optimal ventilation and oxygenation. (4) Pulmonary embolism: Code(s): I26.99 - Other pulmonary embolism without acute cor pulmonale Status: Acute Assessment and Plan: Patient with a CT angiogram of the chest on 12/29/2023 with small non filling defects in the left lower lobe. Patient placed on Eliquis. 02/01/24: Plan: I will repeat a CT angiogram of the chest today to reassess filling defects in left lower lobe and to assess for new pulmonary emboli. Continue Eliquis 5 p.o. b.i.d. Later in the day CT scan angiogram of the chest with no PE. 02/02/24: Continue Eliquis 5 p.o. b.i.d. (5) Pulmonary hypertension: Code(s): I27.20 - Pulmonary hypertension, unspecified Status: Acute Assessment and Plan: Regarding her pulmonary hypertension. Patient had an echocardiogram on 06/12/2023 with LVEF 82%, diastolic dysfunction, mild aortic regurgitation, mild mitral regurgitation, mild tricuspid regurgitation with an RVSP of 45. echocardiogram on 10/28/2023 with LVEF greater than 70, grade 1 diastolic dysfunction, RV size and function were normal, right atrial size was normal. PASP 67. Echocardiogram 12/30/2023: LVEF greater than 70, grade 1 diastolic dysfunction, right ventricular moderately enlarged with normal function. Severe left atrial enlargement. Severely enlarged right atrial enlargement, PASP 66. Etiology of pulmonary hypertension and includes: Severe COPD with chronic hypercarbic and hypoxemic respiratory failure, pulmonary embolism, untreated obstructive sleep apnea and diastolic dysfunction. 02/01/24: plan: Repeat echocardiogram ordered. Continue treatment for COPD, pulmonary embolism, obstructive sleep apnea, AFIB and diastolic dysfunction. Later in the day a limited echocardiogram was performed with no Doppler. Moderate concentric LVH with vigorous systolic function. Right ventricular chamber was normal. Right atrial chamber normal. No PASP measured. 02/02/24: Echocardiogram did not reassess pulmonary pressures. Plan: Will continue to optimize COPD with chronic hypercarbic and hypoxemic respiratory failure, continue treatment for PE, noninvasive ventilation will treat obstructive sleep apnea. Patient with mildly elevated BNP, CT scan of the chest with evidence of congestion and low blood pressure. Ideally would aggressively diurese patient for the possibility of fluid overload but at this time we are limited by low blood pressure. This morning the patient received her home dose of amlodipine 5 an Lasix 20 p.o.. If she can tolerate more aggressive diuresis would recommend this. Cardiology and hospitalist managing diuretics. 02/03/24: Continue to optimize COPD with chronic hypercarbic and hypoxemic respiratory failure as above, continue treatment for PE, optimize noninvasive ventilation for COPD and obstructive sleep apnea as above. Blood pressure low yesterday given albumin. Weight today is 71.9 with an admission weight of 67.3. Plan: Patient with low blood pressure limiting diuresis. Amlodipine on hold. agree with diuresis as tolerated by cardiac and renal systems per hospitalist and Cardiology teams. Patient given 20 of Lasix IV. 02/04/24: Creatinine is increased for from 0.9 to 1.3. Overall patient is clinically improving and oxygenation is improving. In's an out's from yesterday list positive 423. Weight today is 73 with an admission weight 67.1. BNP has increased from 411 to 721. Plan: I placed the Lasix on hold at this time. 02/05/24: Creatinine 1.0, weight 72.6, cumulative she has +4.8 L since admission. Plan: Low blood pressure has limited diuresis. Would give gentle diuresis as tolerated by her cardiac and renal systems. Subjective Date/time seen: 02/05/24 08:34 Interval history: 02/01/2024: This is a new pulmonary consult for pulmonary hypertension. 89-year-old with a history of hypertension, hyperlipidemia, obesity, atrial fibrillation on anticoagulation, tremor, COPD on home oxygen 1 L at rest, 2 L with activity and 2 L on her home noninvasive ventilator with AVAPS AE mode. Regarding her COPD: 35 pack year tobacco, quit 8-10 years ago, previously followed at [place] Last office visit note 02/18/2023. Severe COPD per PFT in 2016. she was not interested in pulmonary rehabilitation. She is current on all her vaccines. Continue trilogy 100, albuterol inhaler nebulized rescue. 3 L with activity, 1 L at rest and 2 L at night. Noncompliant with CPAP and uninterested in restudy or trouble shooting. Regarding her pulmonary hypertension. Patient had an echocardiogram on 06/12/2023 with LVEF 82%, diastolic dysfunction, mild aortic regurgitation, mild mitral regurgitation, mild tricuspid regurgitation with an RVSP of 45. echocardiogram on 10/28/2023 with LVEF greater than 70, grade 1 diastolic dysfunction, RV size and function were normal, right atrial size was normal. PASP 67. Echocardiogram 12/30/2023: LVEF greater than 70, grade 1 diastolic dysfunction, right ventricular moderately enlarged with normal function. Severe left atrial enlargement. Severely enlarged right atrial enlargement, PASP 66. Patient previously seen by Pulmonary for COPD with chronic hypercarbic and hypoxemic respiratory failure and VBG on 2 L nasal cannula 7./ less than 27. Prescribed a home noninvasive ventilator with the AVAPS AE mode on 10/30/2023. 35 pack year tobacco use, quit 8-10 years ago. Maintained on trilogy 10/30/2023: Default settings; height is 1.38 m, wt 68.8 kg. BMI 35.9 kg/m2 Primary settings : AVAPS-AE with Target Tidal Volume TV 350 ml, RR( intentionally left blank) Max pressure 20; PS Min 5; PS Max 10; EPAP Min 5; EPAP Max 10. Bleed in 2 L/min with sleep This form was faxed to [employer] [phone] to [employer]ar who worked with us to provide equipment for this patient. Plan is for this to be set up at [facility] 10/29 today, with discharge planned for today. Recently admitted for weakness and treated for aspiration pneumonia, CT angiogram of the chest showed small nonocclusive filling defects left lower lobe with low clot burden. She was treated with antibiotics. She had a swallow study with laryngeal penetration and aspiration with continued speech therapy and on 01/21/2024 she was tolerated thin ice water after doing She was discharged to rehabilitation center And discharged back to [facility] on 01/22/2024. Patient stated she was doing well on 01/28/2024 but on 01/28 she was weak. On 01/30/24 she could not walk because she had weak arms and legs and she had worsening shortness of breath. She presented to the emergency department. Patient states her persistent cough since her admission on 12/29/2023 was unchanged. She denied fever, chills, chest pain, hemoptysis. She has minimal production of phlegm. In the emergency department her white blood cell count was 11.3 with 0.6% eosinophils, creatinine was 1.2, BNP was 504, COVID influenza and RSV RT PCR studies were negative. Chest x-ray on 01/29 demonstrated left lower lobe infiltrate with improved right and left lower lobe infiltrates from 01/17/2024. She was admitted to the hospital and treated for pneumonia with ceftriaxone and azithromycin. 01/31/24: she was hypotensive required 1 L IV fluids. She was placed on auto PAP at night. Her procalcitonin was 0.1. 02/01/24: Today is she tells me that her dyspnea on exertion is the same since admission, she states that her cough and phlegm production or unchanged since admission she denies any lower extremity swelling or chest pain. She is afebrile. White blood cell count 8.5, creatinine 0.8. Later in the day CT angiogram of the chest with no PE, mild interstitial alveolar infiltrates with minimal effusions consistent with congestion. 02/02/2024: Overall the patient tells me she is doing better than yesterday although she cannot quantitate this and can not tell me what is better. She still says she has some labored breathing. Her cough is the same and she says it is dry although loose. The patient does not know if she slept last night with the noninvasive ventilator on. She does remember being cold last night. White blood cell count 7.8, creatinine 0.8. Patient wore the hospital noninvasive ventilator with the AVAPS mode rate of 14, tidal volume 450, EPAP 7, minimal inspiratory pressure 8, maximal inspiratory pressure 25, Inspiratory time 1.0, rise of 1 and 32% FiO2. ABG prior to removal of the mask was 7.39/61/53. Patient had an overnight oximetry on these studies with recording duration of 6 hours and 28 minutes. Average saturation 89%. Low saturation 83%. Time with saturation less than or equal to 88% was 122 minutes, oxygen desaturation index 8.9. Her weight today is 71.5 with an admission weight of 67.3. 02/03/24: Patient tells me she feels better today although she can not tell me why she feels better her what symptoms are better. Overall she complained she is weak but has no shortness of breath at rest. She states her breathing is better. yesterday she walked 10 feet and she said she got weak but not short of breath. Physical therapy note states unsteady gait due to intermittent tremors -shaking during gait. Saturations 95% prior to gait at rest decreased to 87 following gait and recovered to 90s with rest. Patient is currently on 5 L nasal cannula saturations 91%. Weight today is 71.9 with an admission weight of 67.3. Patient walked with physical therapy yesterday 20 ft x 2. Patient wore the home Belinda through via [employer] with settings rate of 14, tidal volume 500, EPAP minimum 5, EPAP maximum 10, pressure support minimum 5, pressure support maximum 25 with 5 L bleed in. The patient said she did well with a fullface mask and that it was comfortable and she slept. ABG prior to removal was 7.37/62/75. Overnight oximetry on these settings with recording duration of 7 hours and 32 minutes. Average saturation 93%. Low saturation 87%. Time with saturation less than or equal to 88% was 7 minutes. Oxygen desaturation 0.6. Blood pressure low yesterday given albumin. 02/04/24: patient tells me she continues to improve although it is hard for her to quantitate her improvement. Overall she states she is breathing normal. She says her cough is normal with no phlegm and no hemoptysis. She is afebrile. White blood cell count 7.5, creatinine 1.3. When I enter the room the patient was on 5 L nasal cannula saturations 95%. I decreased her to 3 L nasal cannula and her saturations were 93%. Walked 20 ft times 2. Patient wore the home Belinda through via med with [id number] settings rate of 20, tidal volume 500, EPAP minimum 5, EPAP maximum 10, pressure support minimum 5, pressure support maximum 25 with 7 L bleed in. she said she slept well with this and had no issues. ABG prior to removal was 7.41/59/76. patient an overnight oximetry with recording duration 6 hours 21 minutes. Average saturation 96%. Low saturation 89%. Time with saturation less than or equal to 88% was 0 minutes. Oxygen desaturation index 1.4. 02/05/24: Patient tells me she feels better each day. States her breathing is normal. Cough is normal with no phlegm. She is afebrile with white blood cell count 7.7, creatinine 1.0. Patient wore her home Patient wore the home Belinda through via med with [id number] settings and said she slept from 10-430 with no issues with the mask or machine. Patient will meet with hospice later today. DATA: 02/01/24: Clinical Indication: Pulmonary embolus CT Scan of the Chest with Contrast: Technique: Contiguous sections were acquired throughout the chest after intravenous administration of 100 cc of Omnipaque 350. Dose reduction technique was used on this scan by utilizing automated exposure control and iterative reconstruction technique. The dose-length product (DLP) was 623.41 mGy-cm. Findings: There is no evidence of any significant mediastinal, hilar or axillary lymphadenopathy. There is no filling defect in the pulmonary arterial tree to suggest pulmonary embolus. There is no evidence of aortic dissection or aneurysm. No pericardial effusion. There are minimal bilateral pleural effusions, with bibasilar atelectatic change, right worse than left. There is probable interstitial edema.. Probable minimal patchy groundglass pulmonary edema as well. Images through the upper abdomen reveal moderate to large hiatal hernia. Question mild cirrhotic morphology of liver. T12 vertebroplasty noted. Moderate to severe compression fracture of L1 noted. There is mild compression fracture of T11. Impression: No evidence of pulmonary embolus, aortic dissection, or aortic aneurysm. Mild mixed alveolar and interstitial pulmonary edema. Minimal pleural effusions with probable bibasilar/dependent atelectatic change, right worse than left. Correlate clinically for pneumonia. Compression fractures, as above. Questionable mild cirrhotic change of the liver. Correlate clinically and with LFTs. 12/30/23: Summary 1. Left ventricular chamber dimension is normal. 2. Left ventricular systolic function is hyperdynamic, estimated at >70%. 3. There is mildly increased left ventricular wall thickness. 4. The left ventricular diastolic function is grade I diastolic dysfunction. 5. Right ventricular chamber dimension is moderately enlarged. 6. Right ventricular systolic function is normal. 7. Left atrial chamber dimension is severely enlarged. 8. Right atrial chamber dimension is severely enlarged. 9. There is mild to moderate tricuspid valve regurgitation. 10. Estimated pulmonary arterial systolic pressure is 66 mmHg. Right Ventricle Right ventricular chamber dimension is moderately enlarged. Right ventricular systolic function is normal. Right Atria Right atrial chamber dimension is severely enlarged. Atrial Septum Intact interatrial septum visualized by color flow imaging. 12/29/23: EXAMINATION: CTA chest PE protocol INDICATION: hypoxia, SHERON COMPARISON: X-ray chest, same date; CT chest 03/03/2022; CT abdomen pelvis 09/02/2023. FINDINGS: Lung parenchyma and airways: Segmental consolidation in the dependent portions of the bilateral lower lobes and right middle lobe. Patent airways. Pleura: Small left pleural fluid collection. Thoracic inlet, axillae and chest wall: Unremarkable. Thoracic aorta: Mild thoracic aortic ectasia. Moderate atherosclerotic calcifications. No dissection. Mediastinum: Moderate enlarged subcarinal and bilateral hilar lymph nodes. Hiatal hernia. Patulous esophagus. Heart and pericardium: Left ventricular hypertrophy. RV/LV ratio 1.5. Coronary artery calcifications: Moderate. Upper abdomen: Multiple hepatic hypodensities, likely representing cysts. Multiple stable pancreatic cysts. Multiple stable renal cysts. Bones: No acute osseous finding. Multiple stable compression deformities in the thoracolumbar junction. Vertebroplasty cement at T12 Pulmonary arteries: Study quality: Adequate. Small nonocclusive filling defects in several left lower lobe segmental arteries. IMPRESSION: Small nonocclusive filling defects in several left lower lobe segmental arteries. Low clot burden. The RV/LV ratio is 1.5 but this may be confounded by left ventricular hypertrophy. No septal bowing or significant hepatic vein reflux. Segmental right middle lobe and bilateral lower lobe dependent consolidations, concerning for pneumonia. Aspiration should be considered in the differential. Small left pleural effusion. Subcarinal and bilateral hilar lymphadenopathy. 10/28/23: Echo Summary 1. Left ventricular chamber dimension is normal. 2. Left ventricular systolic function is hyperdynamic, estimated at >70%. 3. There is mildly increased left ventricular wall thickness. 4. The left ventricular diastolic function is grade I diastolic dysfunction. 5. Right ventricular systolic function is normal. 6. Left atrial chamber dimension is severely enlarged. 7. There is mild mitral valve regurgitation. 8. There is mild tricuspid valve regurgitation. Right Ventricle Right ventricular chamber dimension is normal. Right ventricular systolic function is normal. Right Atria Right atrial chamber dimension is normal. Review of Systems Constitutional: Constitutional: Reports no additional constitutional complaints Eyes: Eyes: Reports no additional eye complaints ENT: Reports system reviewed and no additional complaints, except as documented Cardiovascular: Cardiovascular: Reports no additional cardiovascular complaints Respiratory: Respiratory: Reports no additional respiratory complaints Gastrointestinal: Gastrointestinal: Reports no additional gastrointestinal complaints Musculoskeletal: Musculoskeletal: Reports no additional musculoskeletal complaints Neurologic: Reports system reviewed and no additional complaints, except as documented Psychiatric: Psychiatric: Reports no additional psychiatric complaints Endocrine: Endocrine: Reports no additional endocrine complaints Hematologic/Lymphatic: Hematologic/Lymphatic: Reports no additional hematologic/lymphatic complaints Allergic/Immunologic: Allergic/Immunologic: Reports no additional allergic/immunologic complaints Exam Const: General: cooperative, healthy appearing and comfortable Orientation/consciousness: oriented to person, oriented to place and oriented to time HENMT: Head: normal to inspection Ears: hearing grossly normal bilaterally Eyes: General: appearance normal, both eyes and all related structures Neck: Neck: normal visual inspection Chest: Chest palpation & inspection: normal inspection of the chest Resp: Effort & Inspection: normal respiratory effort and able to speak in complete sentences Auscultation: crackles, no rales, no rhonchi, wheezes and lung sounds not diminished Other: 02/01 Bilateral inspiratory and expiratory squeaks and crackles 02/02 Unchanged bilateral inspiratory and expiratory squeaks and crackles. 02/03: No squeaks today, few inspiratory crackles. Overall improved. 02/04 continued crackles Cardio: Jugular venous distension: no JVD GI: Inspection: normal to inspection Skin: General skin exam: normal color Neuro: General: oriented to person, oriented to place and oriented to time Extrem: General: normal to inspection Psych: Appearance: grossly normal Objective Data Vital Signs Vital Signs: Vital Signs - 24 hr 02/04/24 11:49 02/04/24 10:00 02/04/24 12:00 Temperature 36.6 C Pulse Rate 88 97 Respiratory Rate 24 H Blood Pressure 107/74 Pulse Oximetry 94 94 Oxygen Delivery Oxygen Flow Rate 6 Fraction of Inspired Oxygen 02/04/24 12:00 02/04/24 14:00 02/04/24 14:52 Temperature 37.2 C Pulse Rate 91 92 89 Respiratory Rate 22 H Blood Pressure 128/73 Pulse Oximetry 94 Oxygen Delivery Oxygen Flow Rate Fraction of Inspired Oxygen 02/04/24 14:53 02/04/24 14:53 02/04/24 15:23 Temperature 37.4 C Pulse Rate 94 Respiratory Rate 28 H Blood Pressure 150/98 H 131/72 142/61 H Pulse Oximetry 93 Oxygen Delivery Oxygen Flow Rate Fraction of Inspired Oxygen 02/04/24 16:00 02/04/24 16:00 02/04/24 19:58 Temperature 36.4 C Pulse Rate 92 85 Respiratory Rate 28 H Blood Pressure 105/46 L Pulse Oximetry 93 95 Oxygen Delivery Nasal Cannula Oxygen Flow Rate 5 Fraction of Inspired Oxygen 02/04/24 20:00 02/05/24 00:10 02/04/24 22:00 Temperature 36.5 C Pulse Rate 64 79 Respiratory Rate 28 H 23 H Blood Pressure 92/62 L Pulse Oximetry 95 94 92 Oxygen Delivery High Flow Nasal Cannula Oxygen Flow Rate 5 Fraction of Inspired Oxygen 02/04/24 20:40 02/05/24 00:00 02/04/24 18:00 Temperature Pulse Rate 95 Respiratory Rate Blood Pressure Pulse Oximetry 88 L 94 Oxygen Delivery High Flow Nasal Cannula CPAP Oxygen Flow Rate 5 Fraction of Inspired Oxygen 40 02/04/24 20:00 02/04/24 22:00 02/05/24 00:00 Temperature Pulse Rate 88 80 63 Respiratory Rate Blood Pressure Pulse Oximetry Oxygen Delivery Oxygen Flow Rate Fraction of Inspired Oxygen 02/05/24 01:09 02/05/24 02:00 02/05/24 04:23 Temperature 36.5 C Pulse Rate 67 75 75 Respiratory Rate 20 24 H Blood Pressure 90/68 L Pulse Oximetry 95 95 Oxygen Delivery Oxygen Flow Rate Fraction of Inspired Oxygen 02/05/24 04:00 02/05/24 04:00 02/05/24 05:55 Temperature Pulse Rate 82 Respiratory Rate Blood Pressure Pulse Oximetry 95 90 Oxygen Delivery CPAP High Flow Nasal Cannula Oxygen Flow Rate 6 Fraction of Inspired Oxygen 40 02/05/24 06:00 02/05/24 06:06 02/05/24 07:10 Temperature Pulse Rate 87 85 Respiratory Rate 18 Blood Pressure Pulse Oximetry 91 92 Oxygen Delivery High Flow Nasal Cannula High Flow Nasal Cannula Oxygen Flow Rate 7 7 Fraction of Inspired Oxygen 02/05/24 07:10 02/05/24 07:51 Temperature 36.7 C Pulse Rate 85 83 Respiratory Rate 18 18 Blood Pressure 104/61 Pulse Oximetry 94 Oxygen Delivery Oxygen Flow Rate Fraction of Inspired Oxygen Intake/Output Intake/Output: Intake & Output 02/02/24 02/03/24 02/04/24 02/05/24 23:59 23:59 23:59 23:59 Intake Total 1571 1832 1404 122 Output Total 950 1400 1100 150 Balance 621 432 304 -28 Meds/Results Medications: Active Medications Generic Name Dose Route Start Last Admin Trade Name Freq PRN Reason Stop Dose Admin Acetaminophen 650 mg 01/31/24 12:16 02/04/24 12:24 Acetaminophen 325 Mg Tablet PO 650 mg Q4H PRN Administration Pain Albuterol 2.5 mg 01/30/24 16:38 02/03/24 17:11 Albuterol Sulfate Neb 2.5 Mg/3 Ml Inh INHALATION 2.5 mg Q8H PRN Administration wheezing Amlodipine Besylate 5 mg 01/31/24 09:00 02/02/24 08:08 Amlodipine Besylate 5 Mg Tablet PO 5 mg DAILY MASTER Administration Apixaban 5 mg 01/30/24 17:00 02/04/24 16:01 Apixaban 5 Mg Tablet PO 5 mg BID MASTER Administration Aripiprazole 2 mg 01/31/24 09:00 02/04/24 10:32 Aripiprazole 2 Mg Tablet PO 2 mg DAILY MASTER Administration Atorvastatin Calcium 80 mg 01/30/24 21:00 02/04/24 21:16 Atorvastatin 40 Mg Tablet PO 80 mg HS MASTER Administration Bisacodyl 5 mg 01/30/24 16:38 Bisacodyl 5 Mg Tablet Ec PO DAILY PRN constipation Citalopram Hydrobromide 20 mg 01/30/24 21:00 02/04/24 21:16 Citalopram Hydrobromide 20 Mg Tablet PO 20 mg QHS MASTER Administration Docusate Sodium 100 mg 01/30/24 17:00 02/04/24 16:01 Docusate Sodium 100 Mg Capsule PO 100 mg BID MASTER Administration Ferrous Sulfate 325 mg 02/01/24 09:00 02/03/24 09:17 Ferrous Sulfate [address] PO 325 mg Q48H MASTER Administration Fluticasone/Umeclidinium/Vilanterol 1 puff 02/04/24 10:00 02/05/24 07:08 Fluticasone/Umeclidin/Vilanter 100-62.5-25 Mcg Ellipta INHALATION 1 puff DAILYRT MASTER Administration Furosemide 20 mg 01/31/24 09:00 02/02/24 08:03 Furosemide 20 Mg Tablet PO 20 mg DAILY MASTER Administration Furosemide 20 mg 02/03/24 09:00 Furosemide Inj 40 Mg/4 Ml Vial IV PUSH DAILY MASTER Guaifenesin 1,200 mg 02/01/24 10:10 02/04/24 21:18 Guaifenesin 12 Hr 600 Mg Tabcr PO 1,200 mg Q12HR MASTER Administration Ceftriaxone Sodium 1 gm in 50 mls @ 100 mls/hr 02/04/24 16:00 02/04/24 15:54 Rocephin 1 Gm/Ns 50 Ml IVPB 100 mls/hr Q24H MASTER Administration Memantine 5 mg 01/30/24 21:00 02/04/24 21:16 Memantine 5 Mg Tablet PO 5 mg Q12HR MASTER Administration Mirtazapine 15 mg 01/30/24 21:00 02/04/24 21:16 Mirtazapine 15 Mg Tablet PO 15 mg HS MASTER Administration Oxycodone HCl 5 mg 01/30/24 16:38 02/05/24 04:36 Oxycodone Hcl (*Crx) 5 Mg Tab Ir PO 5 mg Q4H PRN Administration Pain Rated 4-6 Pantoprazole Sodium 40 mg 01/31/24 09:00 02/04/24 10:32 Pantoprazole 40 Mg Tablet PO 40 mg QAM MASTER Administration Polyethylene Glycol 17 gm 01/30/24 16:38 02/04/24 11:56 Polyethylene Glycol 3350 17 Gm Powd.Pack PO 17 gm QAM PRN Administration Constipation Pramipexole Dihydrochloride 0.5 mg 01/30/24 21:00 02/04/24 21:17 Pramipexole 0.5 Mg Tablet PO 0.5 mg HS MASTER Administration Pregabalin 100 mg 01/30/24 21:00 02/04/24 21:16 Pregabalin (*Crx) 50 Mg Capsule PO 100 mg Q12HR MASTER Administration Trazodone HCl 50 mg 01/30/24 21:00 02/04/24 21:17 Trazodone Hcl 50 Mg Tablet PO 50 mg HS MASTER Administration Vitamin D 1,000 units 01/31/24 09:00 02/04/24 10:32 Cholecalciferol 1,000 Units Tablet PO 1,000 units DAILY MASTER Administration Radiology Results: ITS Impressions Chest CTA 02/01/24 12:08 Impression: No evidence of pulmonary embolus, aortic dissection, or aortic aneurysm. Mild mixed alveolar and interstitial pulmonary edema. Minimal pleural effusions with probable bibasilar/dependent atelectatic change, right worse than left. Correlate clinically for pneumonia. Compression fractures, as above. Questionable mild cirrhotic change of the liver. Correlate clinically and with LFTs. Chest X-Ray 02/04/24 09:27 IMPRESSION: Improved pulmonary vascular congestion when compared with previous study (02/02/2024). Small bibasilar infiltrates are suspected. Foot X-Ray 02/04/24 09:44 IMPRESSION: 1. Arthrodesis procedures of second-fourth proximal interphalangeal joints. 2. Polyarticular osteoarthritis. Ankle X-Ray 02/04/24 09:47 IMPRESSION: 1. No fracture. Labs Labs: Laboratory Results - last 24 hr 02/01/24 02/05/24 10:30 04:53 WBC 7.7 RBC 3.17 L Hgb 9.1 L Hct 30.9 L MCV 97.5 MCH 28.7 MCHC 29.4 L RDW 16.2 H Plt Count 137 L MPV 10.3 Immature Gran % (Auto) 0.5 Neut % (Auto) 72.5 Lymph % (Auto) 18.0 L [place] % (Auto) 5.7 Eos % (Auto) 3.0 Baso % (Auto) 0.3 Lymph # (Auto) 1.38 [place] # (Auto) 0.4 Eos # (Auto) 0.2 Baso # (Auto) 0.0 Abs Immat Gran (auto) 0.04 H Absolute Neuts (auto) 5.6 Absolute Nucleated RBC 0.000 Nucleated RBC % 0.0 Platelet Estimate Slightly decreased % Immature Plt Fraction 4.3 Hypochromasia 1+ Anisocytosis 1+ Microcytosis 1+ Tear Drop Cells 1+ Ovalocytes 1+ Schistocytes None seen Sodium 140 Potassium 3.5 Chloride 98 Carbon Dioxide 37 H Anion Gap 5 BUN 21 H Creatinine 1.00 Estim Creat Clear Calc Not Reportable Estimated GFR 52 L Glucose 120 H Calcium 8.4 Total Bilirubin 0.8 AST 20 ALT 15 Alkaline Phosphatase 75 Total Protein 6.0 L Albumin 3.5 Nasal RSV Type A (PCR) Not detected Nasal RSV Type B (PCR) Not detected Chlamy pneumoniae PCR Not detected Adenovirus DNA Not detected Human Bocavirus (PROSPER) Not detected Coronavirus Type OC43 Not detected Coronavirus Type HKU1 Not detected Coronavirus Type 229E Not detected Coronavirus Type NL63 Not detected Human Metapneumovir PCR Not detected Influenza A (PCR) Not detected Influenza A (H1) RNA Not detected Influenza A (H3) PCR Not detected M. pneumoniae DNA Not detected Parainfluenza PCR Not detected Parainfluenza 2 (PCR) Not detected Parainfluenza 3 RNA (PCR) Not detected Parainfluenza 4 (PCR) Not detected Rhino/Enterovirus (PROSPER) Not detected Influenza Type B (PCR) Not detected Misc Test Comment see note
--- NOTE | 2024-02-05 08:42 | PCNWS ---
Weekly nutritional screen. Patient is tolerating current heart healthy diet with thickened liquds, adequate intake at 75-100% most meals. No weight loss reported. No nutritional recommendations at this time.
[2024-02-05] MEDS: PANTOPRAZOLE 40 MG TABLET PO (08:51)
[2024-02-05] MEDS: guaiFENesin 12 HR 600 MG TABCR 1200 MG PO ×2 (08:51→20:54)
[2024-02-05] MEDS: MEMANTINE 5 MG TABLET PO ×2 (08:51→20:54)
[2024-02-05] MEDS: ARIPiprazole 2 MG TABLET PO (08:51)
[2024-02-05] MEDS: CHOLECALCIFEROL 1,000 UNITS TABLET 1000 UNITS PO (08:51)
[2024-02-05] MEDS: APIXABAN 5 MG TABLET PO ×2 (08:52→17:27)
[2024-02-05] MEDS: PREGABALIN (*CRX) 50 MG CAPSULE 100 MG PO ×2 (08:52→20:54)
[2024-02-05] MEDS: FERROUS SULFATE 325 MG TABLET DR PO (08:52)
--- NOTE | 2024-02-05 09:12 | P.PNIM_ITS ---
Progress Note: A&P Assessment and Plan (1) Pneumonia: Qualifiers: Laterality: left Lung location: lower lobe of lung Pneumonia type: due to unspecified organism Qualified Code(s): J18.9 - Pneumonia, unspecified organism Code(s): J18.9 - Pneumonia, unspecified organism Status: Acute Assessment and Plan: * Chest x-ray suggesting pneumonia versus atelectasis * Pulmonary consulted and thinks that this is more atelectasis versus pneumonia * Antibiotic Ceftriaxone 1 gm IVPB q 24, will discontinue after todays dose. * Continue incentive spirometer * Continue flutter valve * Continue DuoNebs, P dose tonight and guaifenesin * Continue EZ Pap therapy, pulmonology to adjust settings * Respiratory panel negative for RSV, COVID, influenza a and B * Blood cultures showing no growth * Sputum culture was negative * Chest x-ray 02/03 showed IMPRESSION: Improved pulmonary vascular congestion when compared with previous study (02/02/2024). Small bibasilar infiltrates are suspected. * She is afebrile with white blood cell count 7.7, creatinine 1.0. (2) Acute exacerbation of chronic obstructive airways disease: Code(s): J44.1 - Chronic obstructive pulmonary disease with (acute) exacerbation Status: Acute Assessment and Plan: * See above * [facility] consult meeting at 4 pm today. (3) Pulmonary edema: Code(s): J81.1 - Chronic pulmonary edema Status: Acute Assessment and Plan: * She was noted to have moderate pulmonary hypertension from an echo on 06/11/2020. Echocardiogram on 12/30/2023 shown an estimated pulmonary arterial systolic pressure of 66 mmHg, grade 1 diastolic dysfunction with left atrial enlargement and right atrial enlargement, [id number] tricuspid valve regurgitation, normal LV systolic function with an estimated EF of 70%. * Echocardiogram done this admission was limited due to no Doppler and showed a normal LV systolic function with an estimated EF of 65-70%, mildly sclerotic aortic valve without stenosis. * Blood pressure medications have been held the last couple of days, has shown significant improvement in her blood pressure. * Will hold Lasix today. * Plan discussed with absence management consultant and he agrees * Chest x-ray today showed IMPRESSION: Improved pulmonary vascular congestion when compared with previous study (02/02/2024). Small bibasilar infiltrates are suspected. (4) Hypertension: Code(s): I10 - Essential (primary) hypertension Status: Acute Assessment and Plan: * Currently on medications are being held due to hypotension * Blood pressure: Supine BP 96/60 HR 83, Sitting BP 117/77 HR 92, and standing BP 122/65 HR 93. (5) Weakness: Code(s): R53.1 - Weakness Status: Acute Assessment and Plan: * Continue fall precaution * Continue PT and OT * Case management following for outpatient rehab needs Subjective Date/time seen: 02/05/24 09:12 Interval history: Patient reports feeling better today. Patient does not think that she has had a bowel movement since admitted. Patient denies abdominal pain, nausea, vomiting, shortness of breath, or palpitations. Patient and family to speak with [facility] at 4 pm today. Review of Systems Review of Systems: All systems reviewed & are unremarkable except as noted in HPI and below Exam Const: General: comfortable and no acute distress Eyes: Sclera: sclerae normal Resp: Auscultation: wheezes expiratory wheezes Other: few inspiratory crackles. Cardio: Rate: regular rate Rhythm: regular rhythm Other: Telemetry- SR 81 GI: GI Palp: Yes Soft to palpation Auscultation: normal bowel sounds Extrem: General: no pedal edema Psych: Mental Status: mental status grossly normal Affect: normal affect Objective Data Vital Signs Vital Signs: Vital Signs - 24 hr 02/04/24 11:49 02/04/24 10:00 02/04/24 12:00 Temperature 97.8 F Pulse Rate 88 97 Respiratory Rate 24 H Blood Pressure 107/74 Pulse Oximetry 94 94 Oxygen Delivery Oxygen Flow Rate 6 Fraction of Inspired Oxygen 02/04/24 12:00 02/04/24 14:00 02/04/24 14:52 Temperature 98.9 F Pulse Rate 91 92 89 Respiratory Rate 22 H Blood Pressure 128/73 Pulse Oximetry 94 Oxygen Delivery Oxygen Flow Rate Fraction of Inspired Oxygen 02/04/24 14:53 02/04/24 14:53 02/04/24 15:23 Temperature 99.3 F Pulse Rate 94 Respiratory Rate 28 H Blood Pressure 150/98 H 131/72 142/61 H Pulse Oximetry 93 Oxygen Delivery Oxygen Flow Rate Fraction of Inspired Oxygen 02/04/24 16:00 02/04/24 16:00 02/04/24 19:58 Temperature 97.6 F Pulse Rate 92 85 Respiratory Rate 28 H Blood Pressure 105/46 L Pulse Oximetry 93 95 Oxygen Delivery Nasal Cannula Oxygen Flow Rate 5 Fraction of Inspired Oxygen 02/04/24 20:00 02/05/24 00:10 02/04/24 22:00 Temperature 97.7 F Pulse Rate 64 79 Respiratory Rate 28 H 23 H Blood Pressure 92/62 L Pulse Oximetry 95 94 92 Oxygen Delivery High Flow Nasal Cannula Oxygen Flow Rate 5 Fraction of Inspired Oxygen 02/04/24 20:40 02/05/24 00:00 02/04/24 18:00 Temperature Pulse Rate 95 Respiratory Rate Blood Pressure Pulse Oximetry 88 L 94 Oxygen Delivery High Flow Nasal Cannula CPAP Oxygen Flow Rate 5 Fraction of Inspired Oxygen 40 02/04/24 20:00 02/04/24 22:00 02/05/24 00:00 Temperature Pulse Rate 88 80 63 Respiratory Rate Blood Pressure Pulse Oximetry Oxygen Delivery Oxygen Flow Rate Fraction of Inspired Oxygen 02/05/24 01:09 02/05/24 02:00 02/05/24 04:23 Temperature 97.7 F Pulse Rate 67 75 75 Respiratory Rate 20 24 H Blood Pressure 90/68 L Pulse Oximetry 95 95 Oxygen Delivery Oxygen Flow Rate Fraction of Inspired Oxygen 02/05/24 04:00 02/05/24 04:00 02/05/24 05:55 Temperature Pulse Rate 82 Respiratory Rate Blood Pressure Pulse Oximetry 95 90 Oxygen Delivery CPAP High Flow Nasal Cannula Oxygen Flow Rate 6 Fraction of Inspired Oxygen 40 02/05/24 06:00 02/05/24 06:06 02/05/24 07:10 Temperature Pulse Rate 87 85 Respiratory Rate 18 Blood Pressure Pulse Oximetry 91 92 Oxygen Delivery High Flow Nasal Cannula High Flow Nasal Cannula Oxygen Flow Rate 7 7 Fraction of Inspired Oxygen 02/05/24 07:10 02/05/24 07:51 02/05/24 08:00 Temperature 98.0 F Pulse Rate 85 83 84 Respiratory Rate 18 18 Blood Pressure 104/61 Pulse Oximetry 94 Oxygen Delivery Oxygen Flow Rate Fraction of Inspired Oxygen Intake/Output Intake/Output: Intake & Output 02/02/24 02/03/24 02/04/24 02/05/24 23:59 23:59 23:59 23:59 Intake Total 1571 1832 1404 362 Output Total 950 1400 1100 150 Balance 621 432 304 212 Meds/Results Medications: Active Medications Generic Name Dose Route Start Last Admin Trade Name Freq PRN Reason Stop Dose Admin Acetaminophen 650 mg 01/31/24 12:16 02/04/24 12:24 Acetaminophen 325 Mg Tablet PO 650 mg Q4H PRN Administration Pain Albuterol 2.5 mg 01/30/24 16:38 02/03/24 17:11 Albuterol Sulfate Neb 2.5 Mg/3 Ml Inh INHALATION 2.5 mg Q8H PRN Administration wheezing Amlodipine Besylate 5 mg 01/31/24 09:00 02/02/24 08:08 Amlodipine Besylate 5 Mg Tablet PO 5 mg DAILY MASTER Administration Apixaban 5 mg 01/30/24 17:00 02/05/24 08:52 Apixaban 5 Mg Tablet PO 5 mg BID MASTER Administration Aripiprazole 2 mg 01/31/24 09:00 02/05/24 08:51 Aripiprazole 2 Mg Tablet PO 2 mg DAILY MASTER Administration Atorvastatin Calcium 80 mg 01/30/24 21:00 02/04/24 21:16 Atorvastatin 40 Mg Tablet PO 80 mg HS MASTER Administration Bisacodyl 5 mg 01/30/24 16:38 Bisacodyl 5 Mg Tablet Ec PO DAILY PRN constipation Citalopram Hydrobromide 20 mg 01/30/24 21:00 02/04/24 21:16 Citalopram Hydrobromide 20 Mg Tablet PO 20 mg QHS MASTER Administration Docusate Sodium 100 mg 01/30/24 17:00 02/05/24 08:53 Docusate Sodium 100 Mg Capsule PO Not Given BID [facility] Ferrous Sulfate 325 mg 02/01/24 09:00 02/05/24 08:52 Ferrous Sulfate [address] PO 325 mg Q48H MASTER Administration Fluticasone/Umeclidinium/Vilanterol 1 puff 02/04/24 10:00 02/05/24 07:08 Fluticasone/Umeclidin/Vilanter 100-62.5-25 Mcg Ellipta INHALATION 1 puff DAILYRT MASTER Administration Furosemide 20 mg 01/31/24 09:00 02/02/24 08:03 Furosemide 20 Mg Tablet PO 20 mg DAILY MASTER Administration Furosemide 20 mg 02/03/24 09:00 Furosemide Inj 40 Mg/4 Ml Vial IV PUSH DAILY MASTER Guaifenesin 1,200 mg 02/01/24 10:10 02/05/24 08:51 Guaifenesin 12 Hr 600 Mg Tabcr PO 1,200 mg Q12HR MASTER Administration Ceftriaxone Sodium 1 gm in 50 mls @ 100 mls/hr 02/04/24 16:00 02/04/24 15:54 Rocephin 1 Gm/Ns 50 Ml IVPB 100 mls/hr Q24H MASTER Administration Memantine 5 mg 01/30/24 21:00 02/05/24 08:51 Memantine 5 Mg Tablet PO 5 mg Q12HR MASTER Administration Mirtazapine 15 mg 01/30/24 21:00 02/04/24 21:16 Mirtazapine 15 Mg Tablet PO 15 mg HS MASTER Administration Oxycodone HCl 5 mg 01/30/24 16:38 02/05/24 04:36 Oxycodone Hcl (*Crx) 5 Mg Tab Ir PO 5 mg Q4H PRN Administration Pain Rated 4-6 Pantoprazole Sodium 40 mg 01/31/24 09:00 02/05/24 08:51 Pantoprazole 40 Mg Tablet PO 40 mg QAM MASTER Administration Polyethylene Glycol 17 gm 01/30/24 16:38 02/04/24 11:56 Polyethylene Glycol 3350 17 Gm Powd.Pack PO 17 gm QAM PRN Administration Constipation Pramipexole Dihydrochloride 0.5 mg 01/30/24 21:00 02/04/24 21:17 Pramipexole 0.5 Mg Tablet PO 0.5 mg HS MASTER Administration Pregabalin 100 mg 01/30/24 21:00 02/05/24 08:52 Pregabalin (*Crx) 50 Mg Capsule PO 100 mg Q12HR MASTER Administration Trazodone HCl 50 mg 01/30/24 21:00 02/04/24 21:17 Trazodone Hcl 50 Mg Tablet PO 50 mg HS MASTER Administration Vitamin D 1,000 units 01/31/24 09:00 02/05/24 08:51 Cholecalciferol 1,000 Units Tablet PO 1,000 units DAILY MASTER Administration Radiology Results: ITS Impressions Chest CTA 02/01/24 12:08 Impression: No evidence of pulmonary embolus, aortic dissection, or aortic aneurysm. Mild mixed alveolar and interstitial pulmonary edema. Minimal pleural effusions with probable bibasilar/dependent atelectatic change, right worse than left. Correlate clinically for pneumonia. Compression fractures, as above. Questionable mild cirrhotic change of the liver. Correlate clinically and with LFTs. Chest X-Ray 02/04/24 09:27 IMPRESSION: Improved pulmonary vascular congestion when compared with previous study (02/02/2024). Small bibasilar infiltrates are suspected. Foot X-Ray 02/04/24 09:44 IMPRESSION: 1. Arthrodesis procedures of second-fourth proximal interphalangeal joints. 2. Polyarticular osteoarthritis. Ankle X-Ray 02/04/24 09:47 IMPRESSION: 1. No fracture. Labs Labs: Laboratory Results - last 24 hr 02/01/24 02/05/24 10:30 04:53 WBC 7.7 RBC 3.17 L Hgb 9.1 L Hct 30.9 L MCV 97.5 MCH 28.7 MCHC 29.4 L RDW 16.2 H Plt Count 137 L MPV 10.3 Immature Gran % (Auto) 0.5 Neut % (Auto) 72.5 Lymph % (Auto) 18.0 L [place] % (Auto) 5.7 Eos % (Auto) 3.0 Baso % (Auto) 0.3 Lymph # (Auto) 1.38 [place] # (Auto) 0.4 Eos # (Auto) 0.2 Baso # (Auto) 0.0 Abs Immat Gran (auto) 0.04 H Absolute Neuts (auto) 5.6 Absolute Nucleated RBC 0.000 Nucleated RBC % 0.0 Platelet Estimate Slightly decreased % Immature Plt Fraction 4.3 Hypochromasia 1+ Anisocytosis 1+ Microcytosis 1+ Tear Drop Cells 1+ Ovalocytes 1+ Schistocytes None seen Sodium 140 Potassium 3.5 Chloride 98 Carbon Dioxide 37 H Anion Gap 5 BUN 21 H Creatinine 1.00 Estim Creat Clear Calc Not Reportable Estimated GFR 52 L Glucose 120 H Calcium 8.4 Total Bilirubin 0.8 AST 20 ALT 15 Alkaline Phosphatase 75 Total Protein 6.0 L Albumin 3.5 Nasal RSV Type A (PCR) Not detected Nasal RSV Type B (PCR) Not detected Chlamy pneumoniae PCR Not detected Adenovirus DNA Not detected Human Bocavirus (PROSPER) Not detected Coronavirus Type OC43 Not detected Coronavirus Type HKU1 Not detected Coronavirus Type 229E Not detected Coronavirus Type NL63 Not detected Human Metapneumovir PCR Not detected Influenza A (PCR) Not detected Influenza A (H1) RNA Not detected Influenza A (H3) PCR Not detected M. pneumoniae DNA Not detected Parainfluenza PCR Not detected Parainfluenza 2 (PCR) Not detected Parainfluenza 3 RNA (PCR) Not detected Parainfluenza 4 (PCR) Not detected Rhino/Enterovirus (PROSPER) Not detected Influenza Type B (PCR) Not detected Misc Test Comment see note Quality VTE Prophylaxis VTE prophylaxis: pharmacologic ordered
[2024-02-05] MEDS: ALBUTEROL SULFATE NEB 2.5 MG/3 ML INH INHALATION (09:20)
[2024-02-05] MEDS: SENNOSIDES 8.6 MG TABLET PO ×2 (10:55→17:27)
[2024-02-05] MEDS: polyethylene glycoL 3350 17 GM POWD.PACK PO (10:55)
[2024-02-05] MEDS: DOCUSATE SODIUM 100 MG CAPSULE PO ×2 (10:56→17:27)
[2024-02-05 17:13] LABS: Mycoplasma IgM Antibody Titer 73 U/mL
[2024-02-05] MEDS: PRAMIPEXOLE 0.5 MG TABLET PO (20:54)
[2024-02-05] MEDS: CITALOPRAM HYDROBROMIDE 20 MG TABLET PO (20:54)
[2024-02-05] MEDS: MIRTAZAPINE 15 MG TABLET PO (20:54)
[2024-02-05] MEDS: ATORVASTATIN 40 MG TABLET 80 MG PO (20:54)
[2024-02-05] MEDS: traZODone HCL 50 MG TABLET PO (20:54)
[2024-02-06] VITALS (22 sets, daily range): BP systolic 86–126; BP diastolic 56–72; PULSE 68–94; RESP 20–24; TEMP 36.4–37; O2SAT 92–98
[2024-02-06] MEDS: oxyCODONE HCL (*CRX) 5 MG TAB IR PO ×2 (03:59→20:12)
[2024-02-06 04:52] LABS: Basophils Percent Auto 0.3 % (0.2-1.2); Eosinophils Absolute Auto 0.2 K/mm3 (0-0.3); Eosinophils Percent Auto 2.8 % (0-4.4); Hematocrit 31.5 % (37.0-47.0); Hemoglobin 9.1 g/dL (12.0-15.0); Immature Granulocyte Absolute 0.03 K/mm3 (0.00-0.031); Immature Granulocyte Percent A 0.4 % (0-0.5); Immature Platelet Fraction Pct 4.1 % (0.9-11.2); Lymphocytes Absolute Auto 1.26 K/mm3 (0.9-3.2); Lymphocytes Percent Auto 18.7 % (18.3-44.2); Mean Corpuscular HGB Conc 28.9 g/dl (32-36); Mean Corpuscular Hemoglobin 28.3 pg (26-34); Mean Corpuscular Volume 97.8 fl (80-100); Mean Platelet Volume 10.4 fl (7.4-10.4); Monocytes Absolute Auto 0.4 K/mm3 (0.1-0.6); Monocytes Percent Auto 6.2 % (2.6-8.5); Neutrophils Absolute Auto 4.8 K/mm3 (1.3-6.7); Neutrophils Percent Auto 71.6 % (45.5-73.1); Platelet Count Result 139 k/mm3 (150-375); Red Blood Count 3.22 M/mm3 (4.2-5.4); Red Cell Distribution Width 15.9 % (11.5-14.5); White Blood Count 6.7 K/mm3 (4.5-10.0)
[2024-02-06 05:02] LABS: Alanine Aminotransferase 14 U/L (6-35); Albumin Level 3.3 g/dL (3.5-5.1); Alkaline Phosphatase 78 U/L (38-126); Anion Gap 2 mmol/L (4-12); Aspartate Amino Transferase 23 U/L (14-36); Bilirubin,Total 0.7 mg/dL (0.2-1.3); Blood Urea Nitrogen 20 mg/dL (7-17); Calcium 8.7 mg/dL (8.4-10.2); Carbon Dioxide 39 mmol/L (22-30); Chloride 100 mmol/L (98-107); Estimated Glomerular Filt Rate 59; Glucose 114 mg/dL (65-110); Potassium 3.6 mmol/L (3.4-5.0); Sodium 141 mmol/L (137-145)
[2024-02-06] MEDS: FLUTICASONE/UMECLIDIN/VILANTER 100-62.5-25 MCG ELLIPTA 1 PUFF INHALATION (07:50)
[2024-02-06] MEDS: MIDODRINE HCL 2.5 MG TABLET PO (08:41)
--- NOTE | 2024-02-06 08:53 | P.PNIM_ITS ---
Progress Note: A&P Assessment and Plan (1) Pneumonia: Qualifiers: Laterality: left Lung location: lower lobe of lung Pneumonia type: due to unspecified organism Qualified Code(s): J18.9 - Pneumonia, unspecified organism Code(s): J18.9 - Pneumonia, unspecified organism Status: Acute Assessment and Plan: * Chest x-ray suggesting pneumonia versus atelectasis * Pulmonary consulted and thinks that this is more atelectasis versus pneumonia * Completed Ceftriaxone 1 gm q24 course. * Continue incentive spirometer * Continue flutter valve * Continue DuoNebs, P dose tonight and guaifenesin * Continue EZ Pap therapy, pulmonology to adjust settings * Respiratory panel negative for RSV, COVID, influenza a and B * Blood cultures showing no growth * Sputum culture was negative * Chest x-ray 02/03 showed IMPRESSION: Improved pulmonary vascular congestion when compared with previous study (02/02/2024). Small bibasilar infiltrates are suspected. * She is afebrile with white blood cell count 6.7, creatinine 0.90. (2) Acute exacerbation of chronic obstructive airways disease: Code(s): J44.1 - Chronic obstructive pulmonary disease with (acute) exacerbation Status: Acute Assessment and Plan: * See above * [facility] consult yesterday, patient does not wish to sign up with hospice at this time. (3) Pulmonary edema: Code(s): J81.1 - Chronic pulmonary edema Status: Acute Assessment and Plan: * She was noted to have moderate pulmonary hypertension from an echo on 06/11/2020. Echocardiogram on 12/30/2023 shown an estimated pulmonary arterial systolic pressure of 66 mmHg, grade 1 diastolic dysfunction with left atrial enlargement and right atrial enlargement, [id number] tricuspid valve regurgitation, normal LV systolic function with an estimated EF of 70%. * Echocardiogram done this admission was limited due to no Doppler and showed a normal LV systolic function with an estimated EF of 65-70%, mildly sclerotic aortic valve without stenosis. * Plan discussed with manager real estate and he agrees * Chest x-ray today showed IMPRESSION: Improved pulmonary vascular congestion when compared with previous study (02/02/2024). Small bibasilar infiltrates are suspected. * Chest X-ray * Furosemide 20 mg PO x1. (4) Hypertension: Code(s): I10 - Essential (primary) hypertension Status: Acute Assessment and Plan: * Currently on medications are being held due to hypotension. * Blood pressure: Supine BP 105/56, Sitting BP 125/67, and standing BP 126/64. (5) Weakness: Code(s): R53.1 - Weakness Status: Acute Assessment and Plan: * Continue fall precaution * Continue PT and OT * Case management following for outpatient rehab needs Subjective Date/time seen: 02/06/24 08:53 Interval history: Patient denies chest pain, palpitations,shortness of breath, headache, dizziness, nausea, or vomiting. Nurse called and patient blood pressure 86/62. Patient reports that she has not been drinking much. Patient given a dose of Midodrine 2.5 mg PO x1 with blood pressure improving 122/66. Patient reports that she had meeting with hospice yesterday but does not want to switch to hospice at this time. Afternoon patient starting to feel like swelling in left arm and legs. Review of Systems Review of Systems: All systems reviewed & are unremarkable except as noted in HPI and below Exam Const: General: comfortable and no acute distress Eyes: Sclera: sclerae normal Resp: Effort & Inspection: normal respiratory effort Auscultation: diminished lung sounds bilateral in the lower lung rosas Other: Few inspiratory crackles. Cardio: Rate: regular rate Rhythm: regular rhythm Other: Telemetry- SR 75. GI: GI Palp: Yes Soft to palpation Auscultation: normal bowel sounds Skin: General skin exam: no rashes or lesions noted Neuro: Speech: normal speech Extrem: General: pedal edema bilaterally 1+ Psych: Mental Status: mental status grossly normal Affect: normal affect Objective Data Vital Signs Vital Signs: Vital Signs - 24 hr 02/05/24 09:20 02/05/24 09:30 02/05/24 10:00 Temperature Pulse Rate 80 79 76 Respiratory Rate 18 18 Blood Pressure Pulse Oximetry Oxygen Delivery Oxygen Flow Rate 02/05/24 12:00 02/05/24 12:25 02/05/24 12:25 Temperature 98.3 F 98.3 F Pulse Rate 83 83 92 Respiratory Rate 24 H 24 H Blood Pressure 96/60 L 96/60 L 117/77 Pulse Oximetry 90 90 89 L Oxygen Delivery Oxygen Flow Rate 02/05/24 12:25 02/05/24 12:00 02/05/24 12:00 Temperature Pulse Rate 93 93 87 Respiratory Rate 24 H Blood Pressure 122/65 Pulse Oximetry 90 94 Oxygen Delivery High Flow Nasal Cannula Oxygen Flow Rate 3 02/05/24 14:00 02/05/24 16:00 02/05/24 16:00 Temperature 98.5 F Pulse Rate 80 80 90 Respiratory Rate 24 H 20 Blood Pressure 154/87 H Pulse Oximetry 90 90 Oxygen Delivery High Flow Nasal Cannula Oxygen Flow Rate 3 02/05/24 16:00 02/05/24 18:00 02/05/24 20:25 Temperature 97.6 F Pulse Rate 85 79 84 Respiratory Rate 20 Blood Pressure 124/67 Pulse Oximetry 92 Oxygen Delivery Oxygen Flow Rate 02/05/24 21:52 02/05/24 23:15 02/05/24 20:00 Temperature 97.6 F Pulse Rate 67 68 86 Respiratory Rate 20 Blood Pressure 92/56 L Pulse Oximetry 91 94 Oxygen Delivery Oxygen Flow Rate 02/05/24 22:00 02/05/24 20:45 02/06/24 00:00 Temperature Pulse Rate 78 71 Respiratory Rate Blood Pressure Pulse Oximetry 89 L Oxygen Delivery High Flow Nasal Cannula Oxygen Flow Rate 7 02/06/24 00:00 02/06/24 02:00 02/06/24 02:45 Temperature Pulse Rate 68 68 Respiratory Rate Blood Pressure Pulse Oximetry 93 95 Oxygen Delivery CPAP Oxygen Flow Rate 02/06/24 04:00 02/06/24 04:00 02/06/24 05:13 Temperature 97.6 F Pulse Rate 79 81 Respiratory Rate 20 Blood Pressure 119/72 Pulse Oximetry 98 93 Oxygen Delivery CPAP Oxygen Flow Rate 02/06/24 06:00 02/06/24 07:50 02/06/24 08:00 Temperature Pulse Rate 74 94 Respiratory Rate Blood Pressure Pulse Oximetry 92 Oxygen Delivery High Flow Nasal Cannula Oxygen Flow Rate 7 02/06/24 08:00 Temperature 97.6 F Pulse Rate 74 Respiratory Rate 20 Blood Pressure 86/62 L Pulse Oximetry 92 Oxygen Delivery Oxygen Flow Rate Intake/Output Intake/Output: Intake & Output 02/03/24 02/04/24 02/05/24 02/06/24 23:59 23:59 23:59 23:59 Intake Total 1832 1454 892 122 Output Total 1400 1100 800 150 Balance 432 354 92 -28 Meds/Results Medications: Active Medications Generic Name Dose Route Start Last Admin Trade Name Freq PRN Reason Stop Dose Admin Acetaminophen 650 mg 01/31/24 12:16 02/04/24 12:24 Acetaminophen 325 Mg Tablet PO 650 mg Q4H PRN Administration Pain Albuterol 2.5 mg 01/30/24 16:38 02/05/24 09:20 Albuterol Sulfate Neb 2.5 Mg/3 Ml Inh INHALATION 2.5 mg Q8H PRN Administration wheezing Amlodipine Besylate 5 mg 01/31/24 09:00 02/02/24 08:08 Amlodipine Besylate 5 Mg Tablet PO 5 mg DAILY MASTER Administration Apixaban 5 mg 01/30/24 17:00 02/05/24 17:27 Apixaban 5 Mg Tablet PO 5 mg BID MASTER Administration Aripiprazole 2 mg 01/31/24 09:00 02/05/24 08:51 Aripiprazole 2 Mg Tablet PO 2 mg DAILY MASTER Administration Atorvastatin Calcium 80 mg 01/30/24 21:00 02/05/24 20:54 Atorvastatin 40 Mg Tablet PO 80 mg HS MASTER Administration Bisacodyl 5 mg 01/30/24 16:38 Bisacodyl 5 Mg Tablet Ec PO DAILY PRN constipation Citalopram Hydrobromide 20 mg 01/30/24 21:00 02/05/24 20:54 Citalopram Hydrobromide 20 Mg Tablet PO 20 mg QHS MASTER Administration Docusate Sodium 100 mg 01/30/24 17:00 02/05/24 17:27 Docusate Sodium 100 Mg Capsule PO 100 mg BID MASTER Administration Ferrous Sulfate 325 mg 02/01/24 09:00 02/05/24 08:52 Ferrous Sulfate [address] PO 325 mg Q48H MASTER Administration Fluticasone/Umeclidinium/Vilanterol 1 puff 02/04/24 10:00 02/06/24 07:50 Fluticasone/Umeclidin/Vilanter 100-62.5-25 Mcg Ellipta INHALATION 1 puff DAILYRT MASTER Administration Furosemide 20 mg 01/31/24 09:00 02/02/24 08:03 Furosemide 20 Mg Tablet PO 20 mg DAILY MASTER Administration Furosemide 20 mg 02/03/24 09:00 Furosemide Inj 40 Mg/4 Ml Vial IV PUSH DAILY MASTER Guaifenesin 1,200 mg 02/01/24 10:10 02/05/24 20:54 Guaifenesin 12 Hr 600 Mg Tabcr PO 1,200 mg Q12HR MASTER Administration Memantine 5 mg 01/30/24 21:00 02/05/24 20:54 Memantine 5 Mg Tablet PO 5 mg Q12HR MASTER Administration Mirtazapine 15 mg 01/30/24 21:00 02/05/24 20:54 Mirtazapine 15 Mg Tablet PO 15 mg HS MASTER Administration Oxycodone HCl 5 mg 01/30/24 16:38 02/06/24 03:59 Oxycodone Hcl (*Crx) 5 Mg Tab Ir PO 5 mg Q4H PRN Administration Pain Rated 4-6 Pantoprazole Sodium 40 mg 01/31/24 09:00 02/05/24 08:51 Pantoprazole 40 Mg Tablet PO 40 mg QAM MASTER Administration Polyethylene Glycol 17 gm 01/30/24 16:38 02/05/24 10:55 Polyethylene Glycol 3350 17 Gm Powd.Pack PO 17 gm QAM PRN Administration Constipation Pramipexole Dihydrochloride 0.5 mg 01/30/24 21:00 02/05/24 20:54 Pramipexole 0.5 Mg Tablet PO 0.5 mg HS MASTER Administration Pregabalin 100 mg 01/30/24 21:00 02/05/24 20:54 Pregabalin (*Crx) 50 Mg Capsule PO 100 mg Q12HR MASTER Administration Senna 8.6 mg 02/05/24 09:15 02/05/24 17:27 Sennosides 8.6 Mg Tablet PO 8.6 mg BID MASTER Administration Trazodone HCl 50 mg 01/30/24 21:00 02/05/24 20:54 Trazodone Hcl 50 Mg Tablet PO 50 mg HS MASTER Administration Vitamin D 1,000 units 01/31/24 09:00 02/05/24 08:51 Cholecalciferol 1,000 Units Tablet PO 1,000 units DAILY MASTER Administration Radiology Results: ITS Impressions Chest CTA 02/01/24 12:08 Impression: No evidence of pulmonary embolus, aortic dissection, or aortic aneurysm. Mild mixed alveolar and interstitial pulmonary edema. Minimal pleural effusions with probable bibasilar/dependent atelectatic change, right worse than left. Correlate clinically for pneumonia. Compression fractures, as above. Questionable mild cirrhotic change of the liver. Correlate clinically and with LFTs. Chest X-Ray 02/04/24 09:27 IMPRESSION: Improved pulmonary vascular congestion when compared with previous study (02/02/2024). Small bibasilar infiltrates are suspected. Foot X-Ray 02/04/24 09:44 IMPRESSION: 1. Arthrodesis procedures of second-fourth proximal interphalangeal joints. 2. Polyarticular osteoarthritis. Ankle X-Ray 02/04/24 09:47 IMPRESSION: 1. No fracture. Labs Labs: Laboratory Results - last 24 hr 02/01/24 02/02/24 02/06/24 10:30 05:15 04:28 WBC 6.7 RBC 3.22 L Hgb 9.1 L Hct 31.5 L MCV 97.8 MCH 28.3 MCHC 28.9 L RDW 15.9 H Plt Count 139 L MPV 10.4 Immature Gran % (Auto) 0.4 Neut % (Auto) 71.6 Lymph % (Auto) 18.7 [place] % (Auto) 6.2 Eos % (Auto) 2.8 Baso % (Auto) 0.3 Lymph # (Auto) 1.26 [place] # (Auto) 0.4 Eos # (Auto) 0.2 Baso # (Auto) 0.0 Abs Immat Gran (auto) 0.03 Absolute Neuts (auto) 4.8 Absolute Nucleated RBC 0.000 Nucleated RBC % 0.0 % Immature Plt Fraction 4.1 Sodium 141 Potassium 3.6 Chloride 100 Carbon Dioxide 39 H Anion Gap 2 L BUN 20 H Creatinine 0.90 Estim Creat Clear Calc Not Reportable Estimated GFR 59 Glucose 114 H Calcium 8.7 Total Bilirubin 0.7 AST 23 ALT 14 Alkaline Phosphatase 78 Total Protein 6.0 L Albumin 3.3 L Alpha-1-AT Phenotype See note Mycoplasma pneumon IgM 73 SARS-CoV-2 RNA (RT-PCR) Not detected Quality VTE Prophylaxis VTE prophylaxis: pharmacologic ordered
[2024-02-06] MEDS: guaiFENesin 12 HR 600 MG TABCR 1200 MG PO ×2 (10:34→20:08)
[2024-02-06] MEDS: ACETAMINOPHEN 325 MG TABLET 650 MG PO (10:35)
[2024-02-06] MEDS: DOCUSATE SODIUM 100 MG CAPSULE PO ×2 (10:35→16:29)
[2024-02-06] MEDS: CHOLECALCIFEROL 1,000 UNITS TABLET 1000 UNITS PO (10:36)
[2024-02-06] MEDS: PREGABALIN (*CRX) 50 MG CAPSULE 100 MG PO ×2 (10:36→20:08)
[2024-02-06] MEDS: MEMANTINE 5 MG TABLET PO ×2 (10:37→20:08)
[2024-02-06] MEDS: ARIPiprazole 2 MG TABLET PO (10:37)
[2024-02-06] MEDS: PANTOPRAZOLE 40 MG TABLET PO (10:37)
[2024-02-06] MEDS: APIXABAN 5 MG TABLET PO ×2 (10:37→16:30)
--- NOTE | 2024-02-06 15:33 | PC.NURSE ---
Flaquita SAW FEEDER made aware of pts increased oxygen requirement from 4L to 7L. Lung sounds diminished with wheezes to upper lobes. New orders noted for CXR and 20 Lasix x 1 dose.
[2024-02-06] MEDS: FUROSEMIDE 20 MG TABLET PO (16:28)
[2024-02-06] MEDS: SENNOSIDES 8.6 MG TABLET PO (16:28)
[2024-02-06] MEDS: ALBUTEROL SULFATE NEB 2.5 MG/3 ML INH INHALATION (17:16)
[2024-02-06] MEDS: traZODone HCL 50 MG TABLET PO (20:08)
[2024-02-06] MEDS: CITALOPRAM HYDROBROMIDE 20 MG TABLET PO (20:08)
[2024-02-06] MEDS: MIRTAZAPINE 15 MG TABLET PO (20:08)
[2024-02-06] MEDS: ATORVASTATIN 40 MG TABLET 80 MG PO (20:09)
[2024-02-06] MEDS: PRAMIPEXOLE 0.5 MG TABLET PO (20:10)
[2024-02-07] VITALS (23 sets, daily range): BP systolic 87–132; BP diastolic 57–82; PULSE 64–100; RESP 20–28; TEMP 36.4–36.9; O2SAT 89–100
[2024-02-07 05:27] LABS: Basophils Percent Auto 0.2 % (0.2-1.2); Eosinophils Absolute Auto 0.2 K/mm3 (0-0.3); Hematocrit 31.6 % (37.0-47.0); Hemoglobin 8.9 g/dL (12.0-15.0); Immature Granulocyte Absolute 0.02 K/mm3 (0.00-0.031); Immature Granulocyte Percent A 0.4 % (0-0.5); Lymphocytes Absolute Auto 1.47 K/mm3 (0.9-3.2); Lymphocytes Percent Auto 26.2 % (18.3-44.2); Mean Corpuscular HGB Conc 28.2 g/dl (32-36); Mean Corpuscular Hemoglobin 28.4 pg (26-34); Monocytes Absolute Auto 0.4 K/mm3 (0.1-0.6); Monocytes Percent Auto 7.8 % (2.6-8.5); Neutrophils Absolute Auto 3.5 K/mm3 (1.3-6.7); Neutrophils Percent Auto 62.4 % (45.5-73.1); Platelet Count Result 122 k/mm3 (150-375); Red Blood Count 3.13 M/mm3 (4.2-5.4); White Blood Count 5.6 K/mm3 (4.5-10.0)
[2024-02-07 05:41] LABS: Alanine Aminotransferase 13 U/L (6-35); Albumin Level 3.3 g/dL (3.5-5.1); Alkaline Phosphatase 76 U/L (38-126); Anion Gap 4 mmol/L (4-12); Aspartate Amino Transferase 20 U/L (14-36); Bilirubin,Total 0.6 mg/dL (0.2-1.3); Blood Urea Nitrogen 19 mg/dL (7-17); Calcium 8.3 mg/dL (8.4-10.2); Carbon Dioxide 35 mmol/L (22-30); Chloride 103 mmol/L (98-107); Estimated Glomerular Filt Rate 59; Glucose 99 mg/dL (65-110); Potassium 3.7 mmol/L (3.4-5.0); Sodium 142 mmol/L (137-145)
[2024-02-07 05:56] LABS: Large Platelets Present; Platelet Estimate Decreased (Adequate)
[2024-02-07 05:57] LABS: Anisocytosis 1+; Microcytosis 1+ (NORMAL); Schistocytes None Seen
[2024-02-07] MEDS: FLUTICASONE/UMECLIDIN/VILANTER 100-62.5-25 MCG ELLIPTA 1 PUFF INHALATION (07:58)
--- NOTE | 2024-02-07 09:01 | P.PNIM_ITS ---
Progress Note: A&P Assessment and Plan (1) Pneumonia: Qualifiers: Laterality: left Lung location: lower lobe of lung Pneumonia type: due to unspecified organism Qualified Code(s): J18.9 - Pneumonia, unspecified organism Code(s): J18.9 - Pneumonia, unspecified organism Status: Acute Assessment and Plan: * Chest x-ray suggesting pneumonia versus atelectasis * Pulmonary consulted and thinks that this is more atelectasis versus pneumonia * Completed Ceftriaxone 1 gm q24 course. * Continue incentive spirometer * Continue flutter valve * Continue DuoNebs, P dose tonight and guaifenesin * Continue EZ Pap therapy, pulmonology to adjust settings * Respiratory panel negative for RSV, COVID, influenza a and B * Blood cultures showing no growth * Sputum culture was negative * Chest x-ray 02/03 showed IMPRESSION: Improved pulmonary vascular congestion when compared with previous study (02/02/2024). Small bibasilar infiltrates are suspected. * She is afebrile with white blood cell count 5.6, creatinine 0.90. (2) Acute exacerbation of chronic obstructive airways disease: Code(s): J44.1 - Chronic obstructive pulmonary disease with (acute) exacerbation Status: Acute Assessment and Plan: * See above * [facility] consult yesterday, patient does not wish to sign up with hospice at this time. (3) Pulmonary edema: Code(s): J81.1 - Chronic pulmonary edema Status: Acute Assessment and Plan: * She was noted to have moderate pulmonary hypertension from an echo on 06/11/2020. Echocardiogram on 12/30/2023 shown an estimated pulmonary arterial systolic pressure of 66 mmHg, grade 1 diastolic dysfunction with left atrial enlargement and right atrial enlargement, [id number] tricuspid valve regurgitation, normal LV systolic function with an estimated EF of 70%. * Echocardiogram done this admission was limited due to no Doppler and showed a normal LV systolic function with an estimated EF of 65-70%, mildly sclerotic aortic valve without stenosis. * Plan discussed with critical care cns and he agrees * Chest x-ray today showed IMPRESSION: Improved pulmonary vascular congestion when compared with previous study (02/02/2024). Small bibasilar infiltrates are suspected. * Chest X-ray * Furosemide 20 mg PO daily restarted. (4) Hypertension: Code(s): I10 - Essential (primary) hypertension Status: Acute Assessment and Plan: * Blood pressure improving, current blood pressure medication Amlodipine is being held. * Blood pressure: Sitting BP 125/71 HR 87, and standing BP 120/74 HR 81. (5) Weakness: Code(s): R53.1 - Weakness Status: Acute Assessment and Plan: * Continue fall precaution * Continue PT and OT * Case management following for outpatient rehab needs Subjective Date/time seen: 02/07/24 09:01 Interval history: Patient reports feeling better today but still a little swollen in left arm and legs per patient. Patient denies chest pain, palpitations, headache, or dizziness. Patient reports pain in back and shoulders that is a 7 , constant, and aching. Patient reports having a bowel movement yesterday. Review of Systems Review of Systems: All systems reviewed & are unremarkable except as noted in HPI and below Exam Const: General: no acute distress and uncomfortable Resp: Other: Bibasilar inspiratory crackles. No wheezes. Cardio: Rate: regular rate Rhythm: regular rhythm Other: Telemetry: SR 80. GI: GI Palp: Yes Soft to palpation Auscultation: normal bowel sounds Other: Last BM 02/06/24 Skin: General skin exam: no rashes or lesions noted Extrem: General: edema left (trace lower arm and hand) and pedal edema bilaterally (Trace edema) Psych: Mental Status: mental status grossly normal Affect: normal affect Objective Data Vital Signs Vital Signs: Vital Signs - 24 hr 02/06/24 09:32 02/06/24 12:00 02/06/24 14:00 Temperature Pulse Rate 85 Respiratory Rate Blood Pressure 122/66 105/56 L Pulse Oximetry Oxygen Delivery Oxygen Flow Rate 02/06/24 14:00 02/06/24 14:03 02/06/24 12:00 Temperature 98.3 F Pulse Rate 83 Respiratory Rate 24 H Blood Pressure 125/67 126/64 95/65 L Pulse Oximetry 94 Oxygen Delivery Oxygen Flow Rate 02/06/24 16:00 02/06/24 12:00 02/06/24 17:16 Temperature Pulse Rate 83 85 Respiratory Rate 20 Blood Pressure Pulse Oximetry 94 Oxygen Delivery High Flow Nasal Cannula Oxygen Flow Rate 7 02/06/24 16:00 02/06/24 18:00 02/06/24 16:00 Temperature 98 F Pulse Rate 84 86 Respiratory Rate 24 H Blood Pressure 122/66 Pulse Oximetry 96 94 Oxygen Delivery High Flow Nasal Cannula Oxygen Flow Rate 7 02/06/24 10:00 02/06/24 14:00 02/06/24 18:54 Temperature Pulse Rate 94 77 Respiratory Rate Blood Pressure 104/59 L Pulse Oximetry Oxygen Delivery Oxygen Flow Rate 02/06/24 20:00 02/06/24 21:02 02/06/24 21:03 Temperature 98.6 F Pulse Rate 84 78 Respiratory Rate 24 H 20 Blood Pressure 102/64 Pulse Oximetry 96 94 97 Oxygen Delivery High Flow Nasal Cannula Oxygen Flow Rate 7 02/06/24 20:00 02/06/24 20:05 02/06/24 22:00 Temperature Pulse Rate 87 71 Respiratory Rate Blood Pressure Pulse Oximetry 92 Oxygen Delivery High Flow Nasal Cannula Oxygen Flow Rate 7 02/07/24 00:00 02/07/24 00:00 02/07/24 00:00 Temperature 97.9 F Pulse Rate 72 64 Respiratory Rate 28 H Blood Pressure 87/57 L Pulse Oximetry 100 98 Oxygen Delivery CPAP Oxygen Flow Rate 02/07/24 02:00 02/07/24 02:31 02/07/24 05:03 Temperature Pulse Rate 66 70 77 Respiratory Rate Blood Pressure Pulse Oximetry 96 95 Oxygen Delivery Oxygen Flow Rate 02/07/24 04:00 02/07/24 04:00 02/07/24 04:00 Temperature 97.6 F Pulse Rate 72 71 Respiratory Rate 20 Blood Pressure 114/77 Pulse Oximetry 99 96 Oxygen Delivery CPAP Oxygen Flow Rate 02/07/24 06:00 02/07/24 07:51 02/07/24 07:51 Temperature 98.0 F 98.0 F Pulse Rate 70 79 79 Respiratory Rate 20 20 Blood Pressure 132/82 132/82 Pulse Oximetry 98 98 Oxygen Delivery Oxygen Flow Rate 02/07/24 07:54 02/07/24 07:58 Temperature Pulse Rate 79 Respiratory Rate Blood Pressure 124/77 Pulse Oximetry 94 Oxygen Delivery High Flow Nasal Cannula Oxygen Flow Rate 7 Intake/Output Intake/Output: Intake & Output 02/04/24 02/05/24 02/06/24 02/07/24 23:59 23:59 23:59 23:59 Intake Total 3720 347 3463 460 Output Total 1100 800 350 500 Balance 354 92 652 -40 Meds/Results Medications: Active Medications Generic Name Dose Route Start Last Admin Trade Name Freq PRN Reason Stop Dose Admin Acetaminophen 650 mg 01/31/24 12:16 02/06/24 10:35 Acetaminophen 325 Mg Tablet PO 650 mg Q4H PRN Administration Pain Albuterol 2.5 mg 01/30/24 16:38 02/06/24 17:16 Albuterol Sulfate Neb 2.5 Mg/3 Ml Inh INHALATION 2.5 mg Q8H PRN Administration wheezing Amlodipine Besylate 5 mg 01/31/24 09:00 02/02/24 08:08 Amlodipine Besylate 5 Mg Tablet PO 5 mg DAILY MASTER Administration Apixaban 5 mg 01/30/24 17:00 02/06/24 16:30 Apixaban 5 Mg Tablet PO 5 mg BID MASTER Administration Aripiprazole 2 mg 01/31/24 09:00 02/06/24 10:37 Aripiprazole 2 Mg Tablet PO 2 mg DAILY MASTER Administration Atorvastatin Calcium 80 mg 01/30/24 21:00 02/06/24 20:09 Atorvastatin 40 Mg Tablet PO 80 mg HS MASTER Administration Bisacodyl 5 mg 01/30/24 16:38 Bisacodyl 5 Mg Tablet Ec PO DAILY PRN constipation Citalopram Hydrobromide 20 mg 01/30/24 21:00 02/06/24 20:08 Citalopram Hydrobromide 20 Mg Tablet PO 20 mg QHS MASTER Administration Docusate Sodium 100 mg 01/30/24 17:00 02/06/24 16:29 Docusate Sodium 100 Mg Capsule PO 100 mg BID MASTER Administration Ferrous Sulfate 325 mg 02/01/24 09:00 02/05/24 08:52 Ferrous Sulfate [address] PO 325 mg Q48H MASTER Administration Fluticasone/Umeclidinium/Vilanterol 1 puff 02/04/24 10:00 02/07/24 07:58 Fluticasone/Umeclidin/Vilanter 100-62.5-25 Mcg Ellipta INHALATION 1 puff DAILYRT MASTER Administration Furosemide 20 mg 01/31/24 09:00 02/02/24 08:03 Furosemide 20 Mg Tablet PO 20 mg DAILY MASTER Administration Furosemide 20 mg 02/03/24 09:00 Furosemide Inj 40 Mg/4 Ml Vial IV PUSH DAILY MASTER Guaifenesin 1,200 mg 02/01/24 10:10 02/06/24 20:08 Guaifenesin 12 Hr 600 Mg Tabcr PO 1,200 mg Q12HR MASTER Administration Ceftriaxone Sodium 1 gm in 50 mls @ 100 mls/hr 02/06/24 16:10 02/06/24 16:27 Rocephin 1 Gm/Ns 50 Ml IVPB 100 mls/hr QAM MASTER Administration Memantine 5 mg 01/30/24 21:00 02/06/24 20:08 Memantine 5 Mg Tablet PO 5 mg Q12HR MASTER Administration Mirtazapine 15 mg 01/30/24 21:00 02/06/24 20:08 Mirtazapine 15 Mg Tablet PO 15 mg HS MASTER Administration Oxycodone HCl 5 mg 01/30/24 16:38 02/06/24 20:12 Oxycodone Hcl (*Crx) 5 Mg Tab Ir PO 5 mg Q4H PRN Administration Pain Rated 4-6 Pantoprazole Sodium 40 mg 01/31/24 09:00 02/06/24 10:37 Pantoprazole 40 Mg Tablet PO 40 mg QAM MASTER Administration Polyethylene Glycol 17 gm 01/30/24 16:38 02/05/24 10:55 Polyethylene Glycol 3350 17 Gm Powd.Pack PO 17 gm QAM PRN Administration Constipation Pramipexole Dihydrochloride 0.5 mg 01/30/24 21:00 02/06/24 20:10 Pramipexole 0.5 Mg Tablet PO 0.5 mg HS MASTER Administration Pregabalin 100 mg 01/30/24 21:00 02/06/24 20:08 Pregabalin (*Crx) 50 Mg Capsule PO 100 mg Q12HR MASTER Administration Senna 8.6 mg 02/05/24 09:15 02/06/24 16:28 Sennosides 8.6 Mg Tablet PO 8.6 mg BID MASTER Administration Trazodone HCl 50 mg 01/30/24 21:00 02/06/24 20:08 Trazodone Hcl 50 Mg Tablet PO 50 mg HS MASTER Administration Vitamin D 1,000 units 01/31/24 09:00 02/06/24 10:36 Cholecalciferol 1,000 Units Tablet PO 1,000 units DAILY MASTER Administration Radiology Results: ITS Impressions Chest CTA 02/01/24 12:08 Impression: No evidence of pulmonary embolus, aortic dissection, or aortic aneurysm. Mild mixed alveolar and interstitial pulmonary edema. Minimal pleural effusions with probable bibasilar/dependent atelectatic change, right worse than left. Correlate clinically for pneumonia. Compression fractures, as above. Questionable mild cirrhotic change of the liver. Correlate clinically and with LFTs. Foot X-Ray 02/04/24 09:44 IMPRESSION: 1. Arthrodesis procedures of second-fourth proximal interphalangeal joints. 2. Polyarticular osteoarthritis. Ankle X-Ray 02/04/24 09:47 IMPRESSION: 1. No fracture. Chest X-Ray 02/06/24 15:52 IMPRESSION: Right basilar infiltrate and/or atelectasis Labs Labs: Laboratory Results - last 24 hr 02/07/24 05:12 WBC 5.6 RBC 3.13 L Hgb 8.9 L Hct 31.6 L MCV 101.0 H MCH 28.4 MCHC 28.2 L RDW 16.0 H Plt Count 122 L MPV 10.0 Immature Gran % (Auto) 0.4 Neut % (Auto) 62.4 Lymph % (Auto) 26.2 [place] % (Auto) 7.8 Eos % (Auto) 3.0 Baso % (Auto) 0.2 Lymph # (Auto) 1.47 [place] # (Auto) 0.4 Eos # (Auto) 0.2 Baso # (Auto) 0.0 Abs Immat Gran (auto) 0.02 Absolute Neuts (auto) 3.5 Absolute Nucleated RBC 0.000 Nucleated RBC % 0.0 Platelet Estimate Decreased Large Platelets Present Anisocytosis 1+ Microcytosis 1+ Schistocytes None seen Sodium 142 Potassium 3.7 Chloride 103 Carbon Dioxide 35 H Anion Gap 4 BUN 19 H Creatinine 0.90 Estim Creat Clear Calc Not Reportable Estimated GFR 59 Glucose 99 Calcium 8.3 L Total Bilirubin 0.6 AST 20 ALT 13 Alkaline Phosphatase 76 Total Protein 6.0 L Albumin 3.3 L Quality VTE Prophylaxis VTE prophylaxis: pharmacologic ordered
[2024-02-07] MEDS: APIXABAN 5 MG TABLET PO ×2 (09:14→16:56)
[2024-02-07] MEDS: ARIPiprazole 2 MG TABLET PO (09:14)
[2024-02-07] MEDS: PANTOPRAZOLE 40 MG TABLET PO (09:15)
[2024-02-07] MEDS: MEMANTINE 5 MG TABLET PO ×2 (09:15→21:32)
[2024-02-07] MEDS: guaiFENesin 12 HR 600 MG TABCR 1200 MG PO ×2 (09:15→21:32)
[2024-02-07] MEDS: FERROUS SULFATE 325 MG TABLET DR PO (09:15)
[2024-02-07] MEDS: CHOLECALCIFEROL 1,000 UNITS TABLET 1000 UNITS PO (09:15)
[2024-02-07] MEDS: PREGABALIN (*CRX) 50 MG CAPSULE 100 MG PO ×2 (09:16→21:32)
[2024-02-07] MEDS: oxyCODONE HCL (*CRX) 5 MG TAB IR PO ×3 (09:16→21:32)
[2024-02-07] MEDS: SENNOSIDES 8.6 MG TABLET PO ×2 (09:16→16:56)
--- NOTE | 2024-02-07 10:00 | P.PNPL_ITS ---
Progress Note: A&P Assessment and Plan (1) COPD (chronic obstructive pulmonary disease): Code(s): J44.9 - Chronic obstructive pulmonary disease, unspecified Status: Acute Assessment and Plan: Regarding her COPD: 35 pack year tobacco, quit 8-10 years ago, chronic hypoxemic respiratory failure wearing 1 L at rest, 2 L with activity and 2 L sleep. Chronic hypercarbic respiratory failure on noninvasive ventilation with the AVAPS AE mode and 2 L bleed in. previously followed at [place] Last office visit note 02/18/2023. Severe COPD per PFT in 2016. she was not interested in pulmonary rehabilitation. She is current on all her vaccines. Continue trilogy 100, albuterol inhaler nebulized rescue. 3 L with activity, 1 L at rest and 2 L at night. Noncompliant with CPAP and uninterested in restudy or trouble shooting. 02/01/24: patient has a few end-expiratory expiratory wheezes today. She has no increase in her phlegm production she does have worsening dyspnea on exertion. Plan: I will change the patient from her inhaled trilogy to nebulized DuoNebs q.6 hours and nebulized budesonide 500 mcg q.12 hours. Patient also has difficulty expectorating and I will add guaifenesin 1200 mg p.o. b.i.d.. I will add a Cornet flutter valve q.4 hours while awake. I will send an alpha 1 anti trypsin genotype on 02/01. 02/02/2024: Overall the patient tells me she is doing better than yesterday although she cannot quantitate this and can not tell me what is better. She still says she has some labored breathing. Her cough is the same and she says it is dry although loose. The patient does not know if she slept last night with the noninvasive ventilator on. She does remember being cold last night. White blood cell count 7.8, creatinine 0.8. Plan: Continue DuoNebs q.6 hours and nebulized budesonide 500 mcg q.12 hours. Continue guaifenesin 1200 mg p.o. b.i.d. and continue Cornet flutter valve q.4 hours while awake and EzPAP treatment for atelectasis. 02/03/24: Patient tells me she feels better today although she can not tell me why she feels better her what symptoms are better. Overall she complained she is weak but has no shortness of breath at rest. She states her breathing is better. yesterday she walked 10 feet and she said she got weak but not short of breath. Physical therapy note states unsteady gait due to intermittent tremors -shaking during gait. Saturations 95% prior to gait at rest decreased to 87 following gait and recovered to 90s with rest. Patient is currently on 5 L nasal cannula saturations 91%. Patient walked with physical therapy yesterday 20 ft x 2. Plan: Continue DuoNebs q.6 and nebulized budesonide 500 q.12, guaifenesin 1200, Cornet flutter valve and EzPAP. 02/04/24: patient tells me she continues to improve although it is hard for her to quantitate her improvement. Overall she states she is breathing normal. She says her cough is normal with no phlegm and no hemoptysis. She is afebrile. White blood cell count 7.5, creatinine 1.3. When I enter the room the patient was on 5 L nasal cannula saturations 95%. I decreased her to 3 L nasal cannula and her saturations were 93%. Plan: I will discontinue nebulizers and place the patient on trelegy 100. I will continue guaifenesin 1200 mg p.o. b.i.d., and EzPAP. Goal saturation 90- 94%. Will wean as tolerated. 02/05/24: Patient tells me she feels better each day. States her breathing is normal. Cough is normal with no phlegm. She is afebrile with white blood cell count 7.7, creatinine 1.0. currently she is on 7 L nasal cannula saturations 91%. goal saturation 90-94%, wean oxygen as tolerated. Stable for discharge from a pulmonary perspective on 02/05/2024 on these pulmonary medications: trelegy 100-62.5-25 at 1 puff q.day rescue albuterol 2 puffs q. 4 hour p.r.n. shortness of breath or wheezing Rescue albuterol 2.5 mg nebs q.4 hours p.r.n. shortness of breath or wheezing guaifenesin 600 mg p.o. q.12 hours p.r.n. Eliquis 5 mg PO BID oxygen at rest and with ambulation per home O2 assessment which is orderd. when she naps or sleeps: home Belinda through [employer] with [id number] settings rate of 20, tidal volume 500, EPAP minimum 5, EPAP maximum 10, pressure support minimum 5, pressure support maximum 25 with 7 L bleed in. Follow-up in the Pulmonary Clinic with previously scheduled appointment on 02/16/2024. Discussed with Flaquita Barnes, will sign off, call with questions. 02/07/2024: Pulmonary reconsulted for right base lung infiltrate and 7 L oxygen. Patient tells me she clinically continues to improve and is feeling better. She says her breathing is okay. She says she has the same dry cough with no blood or phlegm. She is getting out of bed and is a little bit stronger. She is afebrile, white blood cell count 5.6. When I enter the room the patient was on 7 L nasal cannula with the tubing kinked at the nozzle and a continuous pulse oximeter on her left ear. Her saturations were 91%. I took the can got of the tubing and put her on a finger pulse oximeter and decreased her to 5 L and her saturations were 95%. I decreased her to 3 L and her saturations were 92% with a simultaneous ear probe saturation of 87%. Plan: Patient is clinically stable with no wheezes. Will continue trilogy 100, guaifenesin 1200 mg p.o. b.i.d., Eliquis 5 p.o. q.day. goal oxygenation for 90-94%. Currently she is on 3 L with finger pulse oximetry 92%. Continue to wean as tolerated. No evidence of COPD exacerbation or pneumonia. Will discontinue antibiotics. Discussed with Flaquita Mathew. Will sign off, call with questions. (2) Pneumonia: Qualifiers: Laterality: left Lung location: lower lobe of lung Pneumonia type: due to unspecified organism Qualified Code(s): J18.9 - Pneumonia, unspecified organism Code(s): J18.9 - Pneumonia, unspecified organism Status: Acute Assessment and Plan: Discharged from [facility] on 12/10/2019 for status post vancomycin and cefepime for pneumonia. Discharged on Augmentin. Readmitted 12/28 with PE and treated for pneumonia with cefepime and vanco. Also treated for COPD exacerbation with Solu-Medrol and DuoNebs. Transition to azithromycin. Discharged to rehabilitation center and then to assisted living at [place] on no antibiotics on 01/22/2024. 02/01/24: currently the patient was readmitted with weakness of the arms and legs and worsening shortness of breath. She has persistent cough that is unchanged from 12/29/2023 with no increased phlegm production or chest pain. Her admission white blood cell count was 11.3. She has been afebrile. She has been treated with ceftriaxone and azithromycin since 01/30/2024. Review of her imaging on 01/30/2024 demonstrates small lung volumes with left lower lobe infiltrate and compared to 01/17/2024 the right lower lobe and left lower infiltrates are improved. Blood cultures are negative. COVID influenza and RSV RT PCR study are negative. Plan: I will continue ceftriaxone and azithromycin, day 3. I will send a MRSA nasal swab. I will send a extended respiratory pathogen panel. I will order CTA of the chest to reassess infiltrates. Overall my clinical suspicion for bacterial pneumonia is low and I will not broaden her antibiotic coverage at this time. Urine Legionella, urine pneumococcal studies pending. I will send a mycoplasma IgM on 02/02/2024. 02/02/24: Patient is afebrile. White blood cell count 7.8, procalcitonin 0.1 yesterday, CT scan with diffuse interstitial alveolar infiltrates with some atelectasis but no focal infiltrates suggesting pneumonia. MRSA swab negative. Plan: Patient is on day 4 ceftriaxone and azithromycin. Will plan to finish 5 day treatment. Blood cultures negative time 2. Urine Legionella, urine pneumococcal, serum mycoplasma IgM and respiratory pathogen panel pending. 02/03/24: Patient still has dry cough but this is improving. Afebrile. White blood cell count 9.1. Plan: Day 5 ceftriaxone and azithromycin and will discontinue after today. Blood culture negative. Urine Legionella, pneumococcal and serum IgM, and respiratory pathogen panel pending. 02/03: Patient afebrile, white blood cell count 7.5, urine streptococcal antigen is positive. Urine Legionella negative. Mycoplasma IgM and respiratory pathogen panel pending. Plan: I will continue ceftriaxone at this time, day 6. 02/05/24: Afebrile, white blood cell count 7.7. Respiratory pathogen panel negative. Mycoplasma IgM pending. Plan: Ceftriaxone, day 7. Would discontinue after today's dose. 02/07/24: Patient continues to improve, no increase in her cough or phlegm production. She is afebrile with no leukocytosis. Chest x-ray in my opinion shows no difference in her small lung volumes and mild bibasilar infiltrates likely related to atelectasis. Her oxygenation has actually improved since 02/05/2024. Plan: Will discontinue IV antibiotics at this time. (3) Chronic respiratory failure with hypoxia and hypercapnia: Code(s): J96.11 - Chronic respiratory failure with hypoxia; J96.12 - Chronic respiratory failure with hypercapnia Status: Acute Assessment and Plan: Patient with COPD and history of chronic hypercarbic and hypoxemic respiratory failure and prescribed noninvasive ventilation with the AVAPS AE mode with respiratory rate auto, tidal volume 350, EPAP 5, maximum EPAP 10. Minimum pressure support 5, maximum pressure support 10 With 2 L bleed in on 10/30/2023. Patient tells me she has been wearing a fullface mask with this new machine at [facility]. Download from [employer] from 01/03/2024 through 02/01/2024. Patient is on noninvasive ventilator with the Belinda machine with a T TV-VAPS-AE mode. rate is auto. Tidal volume 350. EPAP minimum 5, EPAP maximum 10, pressure support minimum 5, pressure support maximum 12. % of days with usage greater than or equal to 4 hours is 67%. Average usage on days used is 5 hours and 50 minutes. Weekly average respiratory rate median 12-16. Weekly average tidal volume median 350-400. Weekly average EPAP 7.5. Weekly average IPAP 15.5-16. Weekly average unintentional leak 2.5-25 weekly average minute ventilation 4-6. I interpret this download as suboptimal compliance, low tidal volume and acceptable leak. Plan: I will place the patient on a hospital noninvasive ventilator with the AVAPS mode with a rate of 14, tidal volume 450, EPAP 7, minimal inspiratory pressure 8, maximal inspiratory pressure 25, I-time of 1, rise of 3 and 32% FiO2. I will obtain an ABG prior to removal and an overnight oximetry. Patient wore the hospital noninvasive ventilator with the AVAPS mode rate of 14, tidal volume 450, EPAP 7, minimal inspiratory pressure 8, maximal inspiratory pressure 25, Inspiratory time 1.0, rise of 1 and 32% FiO2. ABG prior to removal of the mask was 7.39/61/53. Patient had an overnight oximetry on these studies with recording duration of 6 hours and 28 minutes. Average saturation 89%. Low saturation 83%. Time with saturation less than or equal to 88% was 122 minutes, oxygen desaturation index 8.9. Her weight today is 71.5 with an admission weight of 67.3. Plan: we will call via [email or web address], to determine if they can change her Belinda home noninvasive ventilator to a rate of 18, tidal volume 500, EPAP minimum 5, EPAP m aximum 10, pressure support minimum 5, pressure support maximum [address] her on 5 L bleed in. Will repeat overnight oximetry an ABG in the morning prior to removal on her home machine if this can be arranged. If the changes to the home machine cannot be arranged will place on hospital AVAPS with a rate of 14, tidal volume 500, EPAP 7, minimal inspiratory pressure 8, maximal inspiratory pressure 25, inspiratory time 1.0, Rise of 1 and 40%. 02/03/24: Patient wore the home Belinda through via [email or web address] with settings rate of 14, tidal volume 500, EPAP minimum 5, EPAP maximum 10, pressure support minimum 5, pressure support maximum 25 with 5 L bleed in. The patient said she did well with a fullface mask and that it was comfortable and she slept. ABG prior to removal was 7.37/62/75. Overnight oximetry on these settings with recording duration of 7 hours and 32 minutes. Average saturation 93%. Low saturation 87%. Time with saturation less than or equal to 88% was 7 minutes. Oxygen desaturation 0.6. Plan: Current home ventilator settings provide adequate but not optimal minute ventilation and I will increase her respiratory rate to 20. Patient hypoxic on 5 L bleed in will place on 6 L bleed in. Will obtain overnight oximetry and ABG in the morning. 02/03: Patient wore the home Belinda through via [email or web address] with settings rate of 20, tidal volume 500, EPAP minimum 5, EPAP maximum 10, pressure support minimum 5, pressure support maximum 25 with 7 L bleed in. she said she slept well with this and had no issues. ABG prior to removal was 7.41/59/76. patient an overnight oximetry with recording duration 6 hours 21 minutes. Average saturation 96%. Low saturation 89%. Time with saturation less than or equal to 88% was 0 minutes. Oxygen desaturation index 1.4. Plan: Current home Belinda settings provide adequate ventilation and oxygenation. Will continue while in hospital and on discharge. 02/05/24: Patient wore the home Belinda through via [employer] and said she slept from 10-430 with no issues with the mask or machine. Patient will meet with hospice later today. Plan: Tolerating her home machine well. If the patient is discharged to assisted living she will use her home Belinda through via [employer]. If she is placed on hospice it is my understanding the hospice team will provide their own noninvasive ventilator. In that case, AVAPS AE rate of 20, tidal volume 500, EPAP minimum 5, EPAP maximum 10, pressure support minimum 5, pressure support maximum 25 with 7 L bleed in provide optimal ventilation and oxygenation. 02/07/24: Patient tells me she is tolerating the home Belinda With 7 L bleed in through via med and is sleeping about 6 hours a night without any issues with the mask or machine. Plan: continue. (4) Pulmonary embolism: Code(s): I26.99 - Other pulmonary embolism without acute cor pulmonale Status: Acute Assessment and Plan: Patient with a CT angiogram of the chest on 12/29/2023 with small non filling defects in the left lower lobe. Patient placed on Eliquis. 02/01/24: Plan: I will repeat a CT angiogram of the chest today to reassess filling defects in left lower lobe and to assess for new pulmonary emboli. Continue Eliquis 5 p.o. b.i.d. Later in the day CT scan angiogram of the chest with no PE. 02/02/24: Continue Eliquis 5 p.o. b.i.d. (5) Pulmonary hypertension: Code(s): I27.20 - Pulmonary hypertension, unspecified Status: Acute Assessment and Plan: Regarding her pulmonary hypertension. Patient had an echocardiogram on 06/12/2023 with LVEF 82%, diastolic dysfunction, mild aortic regurgitation, mild mitral regurgitation, mild tricuspid regurgitation with an RVSP of 45. echocardiogram on 10/28/2023 with LVEF greater than 70, grade 1 diastolic dysfunction, RV size and function were normal, right atrial size was normal. PASP 67. Echocardiogram 12/30/2023: LVEF greater than 70, grade 1 diastolic dysfunction, right ventricular moderately enlarged with normal function. Severe left atrial enlargement. Severely enlarged right atrial enlargement, PASP 66. Etiology of pulmonary hypertension and includes: Severe COPD with chronic hypercarbic and hypoxemic respiratory failure, pulmonary embolism, untreated obstructive sleep apnea and diastolic dysfunction. 02/01/24: plan: Repeat echocardiogram ordered. Continue treatment for COPD, pulmonary embolism, obstructive sleep apnea, AFIB and diastolic dysfunction. Later in the day a limited echocardiogram was performed with no Doppler. Moderate concentric LVH with vigorous systolic function. Right ventricular chamber was normal. Right atrial chamber normal. No PASP measured. 02/02/24: Echocardiogram did not reassess pulmonary pressures. Plan: Will continue to optimize COPD with chronic hypercarbic and hypoxemic respiratory failure, continue treatment for PE, noninvasive ventilation will treat obstructive sleep apnea. Patient with mildly elevated BNP, CT scan of the chest with evidence of congestion and low blood pressure. Ideally would aggressively diurese patient for the possibility of fluid overload but at this time we are limited by low blood pressure. This morning the patient received her home dose of amlodipine 5 an Lasix 20 p.o.. If she can tolerate more aggressive diuresis would recommend this. Cardiology and hospitalist managing diuretics. 02/03/24: Continue to optimize COPD with chronic hypercarbic and hypoxemic respiratory failure as above, continue treatment for PE, optimize noninvasive ventilation for COPD and obstructive sleep apnea as above. Blood pressure low yesterday given albumin. Weight today is 71.9 with an admission weight of 67.3. Plan: Patient with low blood pressure limiting diuresis. Amlodipine on hold. agree with diuresis as tolerated by cardiac and renal systems per hospitalist and Cardiology teams. Patient given 20 of Lasix IV. 02/04/24: Creatinine is increased for from 0.9 to 1.3. Overall patient is clinically improving and oxygenation is improving. In's an out's from yesterday list positive 423. Weight today is 73 with an admission weight 67.1. BNP has increased from 411 to 721. Plan: I placed the Lasix on hold at this time. 02/05/24: Creatinine 1.0, weight 72.6, cumulative she has +4.8 L since admission. Plan: Low blood pressure has limited diuresis. Would give gentle diuresis as tolerated by her cardiac and renal systems. 02/07/24: Patient continues on Lasix 20 p.o. q.day. she is positive 5.7 L since admission. Her weight is 73 kg with an admission weight 67.1 kg. intermittently has low blood pressure. Make sure that these are accurate blood pressure readings. Plan: Diuresis per hospitalist team. Subjective Date/time seen: 02/07/24 10:00 Interval history: 02/01/2024: This is a new pulmonary consult for pulmonary hypertension. 89-year-old with a history of hypertension, hyperlipidemia, obesity, atrial fibrillation on anticoagulation, tremor, COPD on home oxygen 1 L at rest, 2 L with activity and 2 L on her home noninvasive ventilator with AVAPS AE mode. Regarding her COPD: 35 pack year tobacco, quit 8-10 years ago, previously followed at [place] Last office visit note 02/18/2023. Severe COPD per PFT in 2016. she was not interested in pulmonary rehabilitation. She is current on all her vaccines. Continue trilogy 100, albuterol inhaler nebulized rescue. 3 L with activity, 1 L at rest and 2 L at night. Noncompliant with CPAP and uninterested in restudy or trouble shooting. Regarding her pulmonary hypertension. Patient had an echocardiogram on 06/12/2023 with LVEF 82%, diastolic dysfunction, mild aortic regurgitation, mild mitral regurgitation, mild tricuspid regurgitation with an RVSP of 45. ec hocardiogram on 10/28/2023 with LVEF greater than 70, grade 1 diastolic dysfunction, RV size and function were normal, right atrial size was normal. PASP 67. Echocardiogram 12/30/2023: LVEF greater than 70, grade 1 diastolic dysfunction, right ventricular moderately enlarged with normal function. Severe left atrial enlargement. Severely enlarged right atrial enlargement, PASP 66. Patient previously seen by Pulmonary for COPD with chronic hypercarbic and hypoxemic respiratory failure and VBG on 2 L nasal cannula 7./ less than 27. Prescribed a home noninvasive ventilator with the AVAPS AE mode on 10/30/2023. 35 pack year tobacco use, quit 8-10 years ago. Maintained on trilogy 10/30/2023: Default settings; height is 1.38 m, wt 68.8 kg. BMI 35.9 kg/m2 Primary settings : AVAPS-AE with Target Tidal Volume TV 350 ml, RR( intentionally left blank) Max pressure 20; PS Min 5; PS Max 10; EPAP Min 5; EPAP Max 10. Bleed in 2 L/min with sleep This form was faxed to [employer] [phone] to [employer]askar who worked with us to provide equipment for this patient. Plan is for this to be set up at [facility] 10/29 today, with discharge planned for today. Recently admitted for weakness and treated for aspiration pneumonia, CT angiogram of the chest showed small nonocclusive filling defects left lower lobe with low clot burden. She was treated with antibiotics. She had a swallow study with laryngeal penetration and aspiration with continued speech therapy and on 01/21/2024 she was tolerated thin ice water after doing She was discharged to rehabilitation center And discharged back to [facility] on 01/22/2024. Patient stated she was doing well on 01/28/2024 but on 01/28 she was weak. On 01/30/24 she could not walk because she had weak arms and legs and she had worsening shortness of breath. She presented to the emergency department. Patient states her persistent cough since her admission on 12/29/2023 was unchanged. She denied fever, chills, chest pain, hemoptysis. She has minimal production of phlegm. In the emergency department her white blood cell count was 11.3 with 0.6% eosinophils, creatinine was 1.2, BNP was 504, COVID influenza and RSV RT PCR studies were negative. Chest x-ray on 01/29 demonstrated left lower lobe infiltrate with improved right and left lower lobe infiltrates from 01/17/2024. She was admitted to the hospital and treated for pneumonia with ceftriaxone and azithromycin. 01/31/24: she was hypotensive required 1 L IV fluids. She was placed on auto PAP at night. Her procalcitonin was 0.1. 02/01/24: Today is she tells me that her dyspnea on exertion is the same since admission, she states that her cough and phlegm production or unchanged since admission she denies any lower extremity swelling or chest pain. She is afebrile. White blood cell count 8.5, creatinine 0.8. Later in the day CT angiogram of the chest with no PE, mild interstitial alveolar infiltrates with minimal effusions consistent with congestion. 02/02/2024: Overall the patient tells me she is doing better than yesterday although she cannot quantitate this and can not tell me what is better. She still says she has some labored breathing. Her cough is the same and she says it is dry although loose. The patient does not know if she slept last night with the noninvasive ventilator on. She does remember being cold last night. White blood cell count 7.8, creatinine 0.8. Patient wore the hospital noninvasive ventilator with the AVAPS mode rate of 14, tidal volume 450, EPAP 7, minimal inspiratory pressure 8, maximal inspiratory pressure 25, Inspiratory time 1.0, rise of 1 and 32% FiO2. ABG prior to removal of the mask was 7.39/61/53. Patient had an overnight oximetry on these studies with recording duration of 6 hours and 28 minutes. Average saturation 89%. Low saturation 83%. Time with saturation less than or equal to 88% was 122 minutes, oxygen desaturation index 8.9. Her weight today is 71.5 with an admission weight of 67.3. 02/03/24: Patient tells me she feels better today although she can not tell me why she feels better her what symptoms are better. Overall she complained she is weak but has no shortness of breath at rest. She states her breathing is better. yesterday she walked 10 feet and she said she got weak but not short of breath. Physical therapy note states unsteady gait due to intermittent tremors -shaking during gait. Saturations 95% prior to gait at rest decreased to 87 following gait and recovered to 90s with rest. Patient is currently on 5 L nasal cannula saturations 91%. Weight today is 71.9 with an admission weight of 67.3. Patient walked with physical therapy yesterday 20 ft x 2. Patient wore the home Belinda through via [email or web address] with settings rate of 14, tidal volume 500, EPAP minimum 5, EPAP maximum 10, pressure support minimum 5, pressure support maximum 25 with 5 L bleed in. The patient said she did well with a fullface mask and that it was comfortable and she slept. ABG prior to removal was 7.37/62/75. Overnight oximetry on these settings with recording duration of 7 hours and 32 minutes. Average saturation 93%. Low saturation 87%. Time with saturation less than or equal to 88% was 7 minutes. Oxygen desaturation 0.6. Blood pressure low yesterday given albumin. 02/04/24: patient tells me she continues to improve although it is hard for her to quantitate her improvement. Overall she states she is breathing normal. She says her cough is normal with no phlegm and no hemoptysis. She is afebrile. White blood cell count 7.5, creatinine 1.3. When I enter the room the patient was on 5 L nasal cannula saturations 95%. I decreased her to 3 L nasal cannula and her saturations were 93%. Walked 20 ft times 2. Patient wore the home Belinda through via med with [id number] settings rate of 20, tidal volume 500, EPAP minimum 5, EPAP maximum 10, pressure support minimum 5, pressure support maximum 25 with 7 L bleed in. she said she slept well with this and had no issues. ABG prior to removal was 7.41/59/76. patient an overnight oximetry with recording duration 6 hours 21 minutes. Average saturation 96%. Low saturation 89%. Time with saturation less than or equal to 88% was 0 minutes. Oxygen desaturation index 1.4. 02/05/24: Patient tells me she feels better each day. States her breathing is normal. Cough is normal with no phlegm. She is afebrile with white blood cell count 7.7, creatinine 1.0. currently on 7 L with saturations 91%. Patient wore her home Patient wore the home Belinda through via med with [id number] settings and said she slept from 10-430 with no issues with the mask or machine. Patient will meet with hospice later today. Pulmonary signed off the case. 02/06/2024: Chest x-ray with small lung volumes, elevated right hemidiaphragm, mild bibasilar infiltrates with no change per my comparison to 02/04/2024. 02/07/2024: Pulmonary reconsulted for right base lung infiltrate and 7 L oxygen. Patient tells me she clinically continues to improve and is feeling better. She says her breathing is okay. She says she has the same dry cough with no blood or phlegm. She is getting out of bed and is a little bit stronger. She is afebrile, white blood cell count 5.6. When I enter the room the patient was on 7 L nasal cannula with the tubing kinked at the nozzle and a continuous pulse oximeter on her left ear. Her saturations were 91%. I took the can got of the tubing and put her on a finger pulse oximeter and decreased her to 5 L and her saturations were 95%. I decreased her to 3 L and her saturations were 92% with a simultaneous ear probe saturation of 87%. DATA: 02/01/24: Clinical Indication: Pulmonary embolus CT Scan of the Chest with Contrast: Technique: Contiguous sections were acquired throughout the chest after intravenous administration of 100 cc of Omnipaque 350. Dose reduction technique was used on this scan by utilizing automated exposure control and iterative reconstruction technique. The dose-length product (DLP) was 623.41 mGy-cm. Findings: There is no evidence of any significant mediastinal, hilar or axillary lymphadenopathy. There is no filling defect in the pulmonary arterial tree to suggest pulmonary embolus. There is no evidence of aortic dissection or aneurysm. No pericardial effusion. There are minimal bilateral pleural effusions, with bibasilar atelectatic change, right worse than left. There is probable interstitial edema.. Probable minimal patchy groundglass pulmonary edema as well. Images through the upper abdomen reveal moderate to large hiatal hernia. Question mild cirrhotic morphology of liver. T12 vertebroplasty noted. Moderate to severe compression fracture of L1 noted. There is mild compression fracture of T11. Impression: No evidence of pulmonary embolus, aortic dissection, or aortic aneurysm. Mild mixed alveolar and interstitial pulmonary edema. Minimal pleural effusions with probable bibasilar/dependent atelectatic change, right worse than left. Correlate clinically for pneumonia. Compression fractures, as above. Questionable mild cirrhotic change of the liver. Correlate clinically and with LFTs. 12/30/23: Summary 1. Left ventricular chamber dimension is normal. 2. Left ventricular systolic function is hyperdynamic, estimated at >70%. 3. There is mildly increased left ventricular wall thickness. 4. The left ventricular diastolic function is grade I diastolic dysfunction. 5. Right ventricular chamber dimension is moderately enlarged. 6. Right ventricular systolic function is normal. 7. Left atrial chamber dimension is severely enlarged. 8. Right atrial chamber dimension is severely enlarged. 9. There is mild to moderate tricuspid valve regurgitation. 10. Estimated pulmonary arterial systolic pressure is 66 mmHg. Right Ventricle Right ventricular chamber dimension is moderately enlarged. Right ventricular systolic function is normal. Right Atria Right atrial chamber dimension is severely enlarged. Atrial Septum Intact interatrial septum visualized by color flow imaging. 12/29/23: EXAMINATION: CTA chest PE protocol INDICATION: hypoxia, SHERON COMPARISON: X-ray chest, same date; CT chest 03/03/2022; CT abdomen pelvis 09/02/2023. FINDINGS: Lung parenchyma and airways: Segmental consolidation in the dependent portions of the bilateral lower lobes and right middle lobe. Patent airways. Pleura: Small left pleural fluid collection. Thoracic inlet, axillae and chest wall: Unremarkable. Thoracic aorta: Mild thoracic aortic ectasia. Moderate atherosclerotic calcif ications. No dissection. Mediastinum: Moderate enlarged subcarinal and bilateral hilar lymph nodes. Hiatal hernia. Patulous esophagus. Heart and pericardium: Left ventricular hypertrophy. RV/LV ratio 1.5. Coronary artery calcifications: Moderate. Upper abdomen: Multiple hepatic hypodensities, likely representing cysts. Multiple stable pancreatic cysts. Multiple stable renal cysts. Bones: No acute osseous finding. Multiple stable compression deformities in the thoracolumbar junction. Vertebroplasty cement at T12 Pulmonary arteries: Study quality: Adequate. Small nonocclusive filling defects in several left lower lobe segmental arteries. IMPRESSION: Small nonocclusive filling defects in several left lower lobe segmental arteries. Low clot burden. The RV/LV ratio is 1.5 but this may be confounded by left ventricular hypertrophy. No septal bowing or significant hepatic vein reflux. Segmental right middle lobe and bilateral lower lobe dependent consolidations, concerning for pneumonia. Aspiration should be considered in the differential. Small left pleural effusion. Subcarinal and bilateral hilar lymphadenopathy. 10/28/23: Echo Summary 1. Left ventricular chamber dimension is normal. 2. Left ventricular systolic function is hyperdynamic, estimated at >70%. 3. There is mildly increased left ventricular wall thickness. 4. The left ventricular diastolic function is grade I diastolic dysfunction. 5. Right ventricular systolic function is normal. 6. Left atrial chamber dimension is severely enlarged. 7. There is mild mitral valve regurgitation. 8. There is mild tricuspid valve regurgitation. Right Ventricle Right ventricular chamber dimension is normal. Right ventricular systolic function is normal. Right Atria Right atrial chamber dimension is normal. Review of Systems Constitutional: Constitutional: Reports no additional constitutional complaints Eyes: Eyes: Reports no additional eye complaints ENT: Reports system reviewed and no additional complaints, except as documented Cardiovascular: Cardiovascular: Reports no additional cardiovascular c omplaints Respiratory: Respiratory: Reports no additional respiratory complaints Gastrointestinal: Gastrointestinal: Reports no additional gastrointestinal complaints Musculoskeletal: Musculoskeletal: Reports no additional musculoskeletal complaints Neurologic: Reports system reviewed and no additional complaints, except as documented Psychiatric: Psychiatric: Reports no additional psychiatric complaints Endocrine: Endocrine: Reports no additional endocrine complaints Hematologic/Lymphatic: Hematologic/Lymphatic: Reports no additional hematologic/lymphatic complaints Allergic/Immunologic: Allergic/Immunologic: Reports no additional allergic/immunologic complaints Exam Const: General: cooperative, healthy appearing and comfortable Orientation/consciousness: oriented to person, oriented to place and oriented to time HENMT: Head: normal to inspection Ears: hearing grossly normal bilaterally Eyes: General: appearance normal, both eyes and all related structures Neck: Neck: normal visual inspection Chest: Chest palpation & inspection: normal inspection of the chest Resp: Effort & Inspection: normal respiratory effort and able to speak in complete sentences Auscultation: crackles, no rales, no rhonchi, no wheezes and lung sounds not diminished Other: 02/01 Bilateral inspiratory and expiratory squeaks and crackles 02/02 Unchanged bilateral inspiratory and expiratory squeaks and crackles. 02/03: No squeaks today, few inspirato ry crackles. Overall improved. 02/04 continued crackles 02/06: Bibasilar inspiratory crackles. No wheezes. Cardio: Jugular venous distension: no JVD GI: Inspection: normal to inspection Skin: General skin exam: normal color Neuro: General: oriented to person, oriented to place and oriented to time Extrem: General: normal to inspection Psych: Appearance: grossly normal Objective Data Vital Signs Vital Signs: Vital Signs - 24 hr 02/06/24 12:00 02/06/24 14:00 02/06/24 14:00 Temperature Pulse Rate 85 Respiratory Rate Blood Pressure 105/56 L 125/67 Pulse Oximetry Oxygen Delivery Oxygen Flow Rate 02/06/24 14:03 02/06/24 12:00 02/06/24 16:00 Temperature 36.8 C Pulse Rate 83 83 Respiratory Rate 24 H Blood Pressure 126/64 95/65 L Pulse Oximetry 94 Oxygen Delivery Oxygen Flow Rate 02/06/24 12:00 02/06/24 17:16 02/06/24 16:00 Temperature 36.6 C Pulse Rate 85 84 Respiratory Rate 20 24 H Blood Pressure 122/66 Pulse Oximetry 94 96 Oxygen Delivery High Flow Nasal Cannula Oxygen Flow Rate 7 02/06/24 18:00 02/06/24 16:00 02/06/24 14:00 Temperature Pulse Rate 86 77 Respiratory Rate Blood Pressure Pulse Oximetry 94 Oxygen Delivery High Flow Nasal Cannula Oxygen Flow Rate 7 02/06/24 18:54 02/06/24 20:00 02/06/24 21:02 Temperature 37.0 C Pulse Rate 84 Respiratory Rate 24 H Blood Pressure 104/59 L 102/64 Pulse Oximetry 96 94 Oxygen Delivery High Flow Nasal Cannula Oxygen Flow Rate 7 02/06/24 21:03 02/06/24 20:00 02/06/24 20:05 Temperature Pulse Rate 78 87 Respiratory Rate 20 Blood Pressure Pulse Oximetry 97 92 Oxygen Delivery High Flow Nasal Cannula Oxygen Flow Rate 7 02/06/24 22:00 02/07/24 00:00 02/07/24 00:00 Temperature 36.6 C Pulse Rate 71 72 64 Respiratory Rate 28 H Blood Pressure 87/57 L Pulse Oximetry 100 Oxygen Delivery Oxygen Flow Rate 02/07/24 00:00 02/07/24 02:00 02/07/24 02:31 Temperature Pulse Rate 66 70 Respiratory Rate Blood Pressure Pulse Oximetry 98 96 Oxygen Delivery CPAP Oxygen Flow Rate 02/07/24 05:03 02/07/24 04:00 02/07/24 04:00 Temperature 36.4 C Pulse Rate 77 72 71 Respiratory Rate 20 Blood Pressure 114/77 Pulse Oximetry 95 99 Oxygen Delivery Oxygen Flow Rate 02/07/24 04:00 02/07/24 06:00 02/07/24 07:51 Temperature 36.7 C Pulse Rate 70 79 Respiratory Rate 20 Blood Pressure 132/82 Pulse Oximetry 96 98 Oxygen Delivery CPAP Oxygen Flow Rate 02/07/24 07:51 02/07/24 07:54 02/07/24 07:58 Temperature 36.7 C Pulse Rate 79 79 Respiratory Rate 20 Blood Pressure 132/82 124/77 Pulse Oximetry 98 94 Oxygen Delivery High Flow Nasal Cannula Oxygen Flow Rate 7 Intake/Output Intake/Output: Intake & Output 02/04/24 02/05/24 02/06/24 02/07/24 23:59 23:59 23:59 23:59 Intake Total 7330 223 6414 510 Output Total 1100 800 350 500 Balance 354 92 702 10 Meds/Results Medications: Active Medications Generic Name Dose Route Start Last Admin Trade Name Freq PRN Reason Stop Dose Admin Acetaminophen 650 mg 01/31/24 12:16 02/06/24 10:35 Acetaminophen 325 Mg Tablet PO 650 mg Q4H PRN Administration Pain Albuterol 2.5 mg 01/30/24 16:38 02/06/24 17:16 Albuterol Sulfate Neb 2.5 Mg/3 Ml Inh INHALATION 2.5 mg Q8H PRN Administration wheezing Amlodipine Besylate 5 mg 01/31/24 09:00 02/02/24 08:08 Amlodipine Besylate 5 Mg Tablet PO 5 mg DAILY MASTER Administration Apixaban 5 mg 01/30/24 17:00 02/07/24 09:14 Apixaban 5 Mg Tablet PO 5 mg BID MASTER Administration Aripiprazole 2 mg 01/31/24 09:00 02/07/24 09:14 Aripiprazole 2 Mg Tablet PO 2 mg DAILY MASTER Administration Atorvastatin Calcium 80 mg 01/30/24 21:00 02/06/24 20:09 Atorvastatin 40 Mg Tablet PO 80 mg HS MASTER Administration Bisacodyl 5 mg 01/30/24 16:38 Bisacodyl 5 Mg Tablet Ec PO DAILY PRN constipation Citalopram Hydrobromide 20 mg 01/30/24 21:00 02/06/24 20:08 Citalopram Hydrobromide 20 Mg Tablet PO 20 mg QHS MASTER Administration Docusate Sodium 100 mg 01/30/24 17:00 02/07/24 09:17 Docusate Sodium 100 Mg Capsule PO Not Given BID MASTER Ferrous Sulfate 325 mg 02/01/24 09:00 02/07/24 09:15 Ferrous Sulfate [address] PO 325 mg Q48H MASTER Administration Fluticasone/Umeclidinium/Vilanterol 1 puff 02/04/24 10:00 02/07/24 07:58 Fluticasone/Umeclidin/Vilanter 100-62.5-25 Mcg Ellipta INHALATION 1 puff DAILYRT MASTER Administration Furosemide 20 mg 01/31/24 09:00 02/02/24 08:03 Furosemide 20 Mg Tablet PO 20 mg DAILY MASTER Administration Furosemide 20 mg 02/03/24 09:00 Furosemide Inj 40 Mg/4 Ml Vial IV PUSH DAILY MASTER Guaifenesin 1,200 mg 02/01/24 10:10 02/07/24 09:15 Guaifenesin 12 Hr 600 Mg Tabcr PO 1,200 mg Q12HR MASTER Administration Ceftriaxone Sodium 1 gm in 50 mls @ 100 mls/hr 02/06/24 16:10 02/07/24 09:53 Rocephin 1 Gm/Ns 50 Ml IVPB Infused QAM MASTER Infusion Memantine 5 mg 01/30/24 21:00 02/07/24 09:15 Memantine 5 Mg Tablet PO 5 mg Q12HR MASTER Administration Mirtazapine 15 mg 01/30/24 21:00 02/06/24 20:08 Mirtazapine 15 Mg Tablet PO 15 mg HS MASTER Administration Oxycodone HCl 5 mg 01/30/24 16:38 02/07/24 09:16 Oxycodone Hcl (*Crx) 5 Mg Tab Ir PO 5 mg Q4H PRN Administration Pain Rated 4-6 Pantoprazole Sodium 40 mg 01/31/24 09:00 02/07/24 09:15 Pantoprazole 40 Mg Tablet PO 40 mg QAM MASTER Administration Polyethylene Glycol 17 gm 01/30/24 16:38 02/05/24 10:55 Polyethylene Glycol 3350 17 Gm Powd.Pack PO 17 gm QAM PRN Administration Constipation Pramipexole Dihydrochloride 0.5 mg 01/30/24 21:00 02/06/24 20:10 Pramipexole 0.5 Mg Tablet PO 0.5 mg HS MASTER Administration Pregabalin 100 mg 01/30/24 21:00 02/07/24 09:16 Pregabalin (*Crx) 50 Mg Capsule PO 100 mg Q12HR MASTER Administration Senna 8.6 mg 02/05/24 09:15 02/07/24 09:16 Sennosides 8.6 Mg Tablet PO 8.6 mg BID MASTER Administration Trazodone HCl 50 mg 01/30/24 21:00 02/06/24 20:08 Trazodone Hcl 50 Mg Tablet PO 50 mg HS MASTER Administration Vitamin D 1,000 units 01/31/24 09:00 02/07/24 09:15 Cholecalciferol 1,000 Units Tablet PO 1,000 units DAILY MASTER Administration Radiology Results: ITS Impressions Chest CTA 02/01/24 12:08 Impression: No evidence of pulmonary embolus, aortic dissection, or aortic aneurysm. Mild mixed alveolar and interstitial pulmonary edema. Minimal pleural effusions with probable bibasilar/dependent atelectatic change, right worse than left. Correlate clinically for pneumonia. Compression fractures, as above. Questionable mild cirrhotic change of the liver. Correlate clinically and with LFTs. Foot X-Ray 02/04/24 09:44 IMPRESSION: 1. Arthrodesis procedures of second-fourth proximal interphalangeal joints. 2. Polyarticular osteoarthritis. Ankle X-Ray 02/04/24 09:47 IMPRESSION: 1. No fracture. Chest X-Ray 02/06/24 15:52 IMPRESSION: Right basilar infiltrate and/or atelectasis Labs Labs: Laboratory Results - last 24 hr 02/07/24 05:12 WBC 5.6 RBC 3.13 L Hgb 8.9 L Hct 31.6 L MCV 101.0 H MCH 28.4 MCHC 28.2 L RDW 16.0 H Plt Count 122 L MPV 10.0 Immature Gran % (Auto) 0.4 Neut % (Auto) 62.4 Lymph % (Auto) 26.2 Tucker % (Auto) 7.8 Eos % (Auto) 3.0 Baso % (Auto) 0.2 Lymph # (Auto) 1.47 Tucker # (Auto) 0.4 Eos # (Auto) 0.2 Baso # (Auto) 0.0 Abs Immat Gran (auto) 0.02 Absolute Neuts (auto) 3.5 Absolute Nucleated RBC 0.000 Nucleated RBC % 0.0 Platelet Estimate Decreased Large Platelets Present Anisocytosis 1+ Microcytosis 1+ Schistocytes None seen Sodium 142 Potassium 3.7 Chloride 103 Carbon Dioxide 35 H Anion Gap 4 BUN 19 H Creatinine 0.90 Estim Creat Clear Calc Not Reportable Estimated GFR 59 Glucose 99 Calcium 8.3 L Total Bilirubin 0.6 AST 20 ALT 13 Alkaline Phosphatase 76 Total Protein 6.0 L Albumin 3.3 L
[2024-02-07] MEDS: PRAMIPEXOLE 0.5 MG TABLET PO (21:32)
[2024-02-07] MEDS: traZODone HCL 50 MG TABLET PO (21:32)
[2024-02-07] MEDS: ATORVASTATIN 40 MG TABLET 80 MG PO (21:32)
[2024-02-07] MEDS: MIRTAZAPINE 15 MG TABLET PO (21:32)
[2024-02-07] MEDS: CITALOPRAM HYDROBROMIDE 20 MG TABLET PO (21:32)
[2024-02-08] VITALS (21 sets, daily range): BP systolic 94–154; BP diastolic 46–87; PULSE 63–100; RESP 18–24; TEMP 36.3–36.8; O2SAT 91–96
[2024-02-08 05:13] LABS: Basophils Percent Auto 0.3 % (0.2-1.2); Eosinophils Absolute Auto 0.3 K/mm3 (0-0.3); Eosinophils Percent Auto 3.9 % (0-4.4); Hematocrit 29.3 % (37.0-47.0); Hemoglobin 8.3 g/dL (12.0-15.0); Immature Granulocyte Absolute 0.02 K/mm3 (0.00-0.031); Immature Granulocyte Percent A 0.3 % (0-0.5); Lymphocytes Absolute Auto 1.66 K/mm3 (0.9-3.2); Lymphocytes Percent Auto 24.1 % (18.3-44.2); Mean Corpuscular HGB Conc 28.3 g/dl (32-36); Mean Corpuscular Hemoglobin 27.4 pg (26-34); Mean Corpuscular Volume 96.7 fl (80-100); Mean Platelet Volume 9.8 fl (7.4-10.4); Monocytes Absolute Auto 0.6 K/mm3 (0.1-0.6); Neutrophils Absolute Auto 4.4 K/mm3 (1.3-6.7); Neutrophils Percent Auto 63.4 % (45.5-73.1); Platelet Count Result 125 k/mm3 (150-375); Red Blood Count 3.03 M/mm3 (4.2-5.4); Red Cell Distribution Width 15.8 % (11.5-14.5); White Blood Count 6.9 K/mm3 (4.5-10.0)
[2024-02-08 05:33] LABS: Alanine Aminotransferase 14 U/L (6-35); Albumin Level 3.1 g/dL (3.5-5.1); Alkaline Phosphatase 74 U/L (38-126); Anion Gap 4 mmol/L (4-12); Aspartate Amino Transferase 21 U/L (14-36); Bilirubin,Total 0.6 mg/dL (0.2-1.3); Blood Urea Nitrogen 20 mg/dL (7-17); Calcium 8.5 mg/dL (8.4-10.2); Carbon Dioxide 38 mmol/L (22-30); Chloride 100 mmol/L (98-107); Estimated Glomerular Filt Rate 52; Glucose 102 mg/dL (65-110); Potassium 3.6 mmol/L (3.4-5.0); Sodium 142 mmol/L (137-145)
[2024-02-08] MEDS: FLUTICASONE/UMECLIDIN/VILANTER 100-62.5-25 MCG ELLIPTA 1 PUFF INHALATION (07:12)
[2024-02-08] MEDS: guaiFENesin 12 HR 600 MG TABCR 1200 MG PO ×2 (09:53→21:00)
[2024-02-08] MEDS: APIXABAN 5 MG TABLET PO ×2 (09:53→18:07)
[2024-02-08] MEDS: oxyCODONE HCL (*CRX) 5 MG TAB IR PO ×3 (09:53→18:06)
[2024-02-08] MEDS: CHOLECALCIFEROL 1,000 UNITS TABLET 1000 UNITS PO (09:53)
[2024-02-08] MEDS: MEMANTINE 5 MG TABLET PO ×2 (09:53→21:01)
[2024-02-08] MEDS: FUROSEMIDE 20 MG TABLET PO (09:53)
[2024-02-08] MEDS: SENNOSIDES 8.6 MG TABLET PO (09:53)
[2024-02-08] MEDS: PREGABALIN (*CRX) 50 MG CAPSULE 100 MG PO ×2 (09:53→21:00)
[2024-02-08] MEDS: PANTOPRAZOLE 40 MG TABLET PO (09:53)
[2024-02-08] MEDS: ARIPiprazole 2 MG TABLET PO (09:55)
[2024-02-08] MEDS: DOCUSATE SODIUM 100 MG CAPSULE PO (09:55)
--- NOTE | 2024-02-08 10:51 | P.PNIM_ITS ---
Progress Note: A&P Assessment and Plan (1) Pneumonia: Qualifiers: Laterality: left Lung location: lower lobe of lung Pneumonia type: due to unspecified organism Qualified Code(s): J18.9 - Pneumonia, unspecified organism Code(s): J18.9 - Pneumonia, unspecified organism Status: Acute Assessment and Plan: * Chest x-ray suggesting pneumonia versus atelectasis * Pulmonary consulted and thinks that this is more atelectasis versus pneumonia * Completed Ceftriaxone 1 gm q24 course. * Continue incentive spirometer * Continue flutter valve * Continue DuoNebs, P dose tonight and guaifenesin * Continue EZ Pap therapy, pulmonology to adjust settings * Respiratory panel negative for RSV, COVID, influenza a and B * Blood cultures showing no growth * Sputum culture was negative * Chest x-ray 02/03 showed IMPRESSION: Improved pulmonary vascular congestion when compared with previous study (02/02/2024). Small bibasilar infiltrates are suspected. * She is afebrile with white blood cell count 6.9, creatinine 1.00 (2) Acute exacerbation of chronic obstructive airways disease: Code(s): J44.1 - Chronic obstructive pulmonary disease with (acute) exacerbation Status: Acute Assessment and Plan: * See above * [facility] consult completed, patient does not wish to sign up with [facility] at this time. (3) Pulmonary edema: Code(s): J81.1 - Chronic pulmonary edema Status: Acute Assessment and Plan: * She was noted to have moderate pulmonary hypertension from an echo on 06/11/2020. Echocardiogram on 12/30/2023 shown an estimated pulmonary arterial systolic pressure of 66 mmHg, grade 1 diastolic dysfunction with left atrial enlargement and right atrial enlargement, [id number] tricuspid valve regurgitation, normal LV systolic function with an estimated EF of 70%. * Echocardiogram done this admission was limited due to no Doppler and showed a normal LV systolic function with an estimated EF of 65-70%, mildly sclerotic aortic valve without stenosis. * Plan discussed with command center officer and he agrees * Chest x-ray today showed IMPRESSION: Improved pulmonary vascular congestion when compared with previous study (02/02/2024). Small bibasilar infiltrates are suspected. * Furosemide 20 mg PO daily. * Patient able to walk a short distance with therapy today, if patient does well tomorrow patient may transfer to [place] for rehab. (4) Hypertension: Code(s): I10 - Essential (primary) hypertension Status: Acute Assessment and Plan: * Blood pressure improving, current blood pressure medication Amlodipine is being held. * Blood pressure: 139/87 (5) Weakness: Code(s): R53.1 - Weakness Status: Acute Assessment and Plan: * Continue fall precaution * Continue PT and OT * Case management following for outpatient rehab needs * Patient able to walk a short distance with therapy today, if patient does well tomorrow patient may transfer to [place] for rehab. Subjective Date/time seen: 02/08/24 10:51 Interval history: Patient denies chest pain, palpitations, headache, dizziness, nausea, or vomiting. Patient reports pain her back and shoulders is a 4 , constant, and aching. Patient reports having a bowel movement today. Review of Systems Review of Systems: All systems reviewed & are unremarkable except as noted in HPI and below Exam Const: General: no acute distress and uncomfortable Eyes: Sclera: sclerae normal Resp: Effort & Inspection: normal respiratory effort Other: - Bibasilar inspiratory crackles. Cardio: Rate: regular rate Rhythm: regular rhythm Other: Telemetry SR 94. GI: GI Palp: Yes Soft to palpation Auscultation: normal bowel sounds Skin: General skin exam: no rashes or lesions noted Extrem: General: edema left (trace arm) and pedal edema bilaterally (trace edema) Psych: Mental Status: mental status grossly normal Affect: normal affect Objective Data Vital Signs Vital Signs: Vital Signs - 24 hr 02/07/24 11:34 02/07/24 12:22 02/07/24 12:00 Temperature 98.1 F Pulse Rate 87 89 Respiratory Rate 20 Blood Pressure 125/71 Pulse Oximetry 93 92 Oxygen Delivery High Flow Nasal Cannula Oxygen Flow Rate 4 02/07/24 13:48 02/07/24 14:00 02/07/24 15:48 Temperature 97.9 F Pulse Rate 81 74 Respiratory Rate 20 Blood Pressure 120/74 118/72 Pulse Oximetry 94 Oxygen Delivery Oxygen Flow Rate 02/07/24 16:00 02/07/24 16:00 02/07/24 18:00 Temperature Pulse Rate 77 82 Respiratory Rate Blood Pressure Pulse Oximetry 92 Oxygen Delivery High Flow Nasal Cannula Oxygen Flow Rate 3.5 02/07/24 19:54 02/07/24 20:00 02/07/24 22:00 Temperature 98.5 F Pulse Rate 81 100 88 Respiratory Rate 20 Blood Pressure 121/65 Pulse Oximetry 90 Oxygen Delivery Oxygen Flow Rate 02/07/24 20:00 02/07/24 23:00 02/08/24 00:00 Temperature 98.3 F Pulse Rate 74 66 Respiratory Rate 24 H Blood Pressure 99/54 L Pulse Oximetry 89 L 92 91 Oxygen Delivery High Flow Nasal Cannula Oxygen Flow Rate 4.5 02/08/24 00:00 02/08/24 00:00 02/08/24 02:00 Temperature Pulse Rate 72 63 Respiratory Rate Blood Pressure Pulse Oximetry 91 Oxygen Delivery CPAP Oxygen Flow Rate 5 02/08/24 01:59 02/08/24 04:00 02/08/24 04:00 Temperature 97.7 F Pulse Rate 73 68 63 Respiratory Rate 18 Blood Pressure 94/67 L Pulse Oximetry 91 93 Oxygen Delivery Oxygen Flow Rate 02/08/24 04:00 02/08/24 06:00 02/08/24 07:19 Temperature 98.1 F Pulse Rate 81 85 Respiratory Rate 20 Blood Pressure 147/77 H Pulse Oximetry 92 92 Oxygen Delivery CPAP Oxygen Flow Rate 5 02/08/24 07:05 02/08/24 07:05 Temperature Pulse Rate 84 84 Respiratory Rate 18 18 Blood Pressure Pulse Oximetry 93 Oxygen Delivery High Flow Nasal Cannula Oxygen Flow Rate 4 Intake/Output Intake/Output: Intake & Output 02/05/24 02/06/24 02/07/24 02/08/24 23:59 23:59 23:59 23:59 Intake Total 892 1052 983 490 Output Total 800 350 751 250 Balance 92 702 232 240 Meds/Results Medications: Active Medications Generic Name Dose Route Start Last Admin Trade Name Freq PRN Reason Stop Dose Admin Acetaminophen 650 mg 01/31/24 12:16 02/06/24 10:35 Acetaminophen 325 Mg Tablet PO 650 mg Q4H PRN Administration Pain Albuterol 2.5 mg 01/30/24 16:38 02/06/24 17:16 Albuterol Sulfate Neb 2.5 Mg/3 Ml Inh INHALATION 2.5 mg Q8H PRN Administration wheezing Amlodipine Besylate 5 mg 01/31/24 09:00 02/02/24 08:08 Amlodipine Besylate 5 Mg Tablet PO 5 mg DAILY MASTER Administration Apixaban 5 mg 01/30/24 17:00 02/08/24 09:53 Apixaban 5 Mg Tablet PO 5 mg BID MASTER Administration Aripiprazole 2 mg 01/31/24 09:00 02/08/24 09:55 Aripiprazole 2 Mg Tablet PO 2 mg DAILY MASTER Administration Atorvastatin Calcium 80 mg 01/30/24 21:00 02/07/24 21:32 Atorvastatin 40 Mg Tablet PO 80 mg HS MASTER Administration Bisacodyl 5 mg 01/30/24 16:38 Bisacodyl 5 Mg Tablet Ec PO DAILY PRN constipation Citalopram Hydrobromide 20 mg 01/30/24 21:00 02/07/24 21:32 Citalopram Hydrobromide 20 Mg Tablet PO 20 mg QHS MASTER Administration Docusate Sodium 100 mg 01/30/24 17:00 02/08/24 09:55 Docusate Sodium 100 Mg Capsule PO 100 mg BID MASTER Administration Ferrous Sulfate 325 mg 02/01/24 09:00 02/07/24 09:15 Ferrous Sulfate [address] PO 325 mg Q48H MASTER Administration Fluticasone/Umeclidinium/Vilanterol 1 puff 02/04/24 10:00 02/08/24 07:12 Fluticasone/Umeclidin/Vilanter 100-62.5-25 Mcg Ellipta INHALATION 1 puff DAILYRT MASTER Administration Furosemide 20 mg 01/31/24 09:00 02/08/24 09:53 Furosemide 20 Mg Tablet PO 20 mg DAILY MASTER Administration Furosemide 20 mg 02/03/24 09:00 Furosemide Inj 40 Mg/4 Ml Vial IV PUSH DAILY MASTER Guaifenesin 1,200 mg 02/01/24 10:10 02/08/24 09:53 Guaifenesin 12 Hr 600 Mg Tabcr PO 1,200 mg Q12HR MASTER Administration Memantine 5 mg 01/30/24 21:00 02/08/24 09:53 Memantine 5 Mg Tablet PO 5 mg Q12HR MASTER Administration Mirtazapine 15 mg 01/30/24 21:00 02/07/24 21:32 Mirtazapine 15 Mg Tablet PO 15 mg HS MASTER Administration Oxycodone HCl 5 mg 01/30/24 16:38 02/08/24 09:53 Oxycodone Hcl (*Crx) 5 Mg Tab Ir PO 5 mg Q4H PRN Administration Pain Rated 4-6 Pantoprazole Sodium 40 mg 01/31/24 09:00 02/08/24 09:53 Pantoprazole 40 Mg Tablet PO 40 mg QAM MASTER Administration Polyethylene Glycol 17 gm 01/30/24 16:38 02/05/24 10:55 Polyethylene Glycol 3350 17 Gm Powd.Pack PO 17 gm QAM PRN Administration Constipation Pramipexole Dihydrochloride 0.5 mg 01/30/24 21:00 02/07/24 21:32 Pramipexole 0.5 Mg Tablet PO 0.5 mg HS MASTER Administration Pregabalin 100 mg 01/30/24 21:00 02/08/24 09:53 Pregabalin (*Crx) 50 Mg Capsule PO 100 mg Q12HR MASTER Administration Senna 8.6 mg 02/05/24 09:15 02/08/24 09:53 Sennosides 8.6 Mg Tablet PO 8.6 mg BID MASTER Administration Trazodone HCl 50 mg 01/30/24 21:00 02/07/24 21:32 Trazodone Hcl 50 Mg Tablet PO 50 mg HS MASTER Administration Vitamin D 1,000 units 01/31/24 09:00 02/08/24 09:53 Cholecalciferol 1,000 Units Tablet PO 1,000 units DAILY MASTER Administration Radiology Results: ITS Impressions Chest CTA 02/01/24 12:08 Impression: No evidence of pulmonary embolus, aortic dissection, or aortic aneurysm. Mild mixed alveolar and interstitial pulmonary edema. Minimal pleural effusions with probable bibasilar/dependent atelectatic change, right worse than left. Correlate clinically for pneumonia. Compression fractures, as above. Questionable mild cirrhotic change of the liver. Correlate clinically and with LFTs. Foot X-Ray 02/04/24 09:44 IMPRESSION: 1. Arthrodesis procedures of second-fourth proximal interphalangeal joints. 2. Polyarticular osteoarthritis. Ankle X-Ray 02/04/24 09:47 IMPRESSION: 1. No fracture. Chest X-Ray 02/06/24 15:52 IMPRESSION: Right basilar infiltrate and/or atelectasis Labs Labs: Laboratory Results - last 24 hr 02/08/24 05:04 WBC 6.9 RBC 3.03 L Hgb 8.3 L Hct 29.3 L MCV 96.7 MCH 27.4 MCHC 28.3 L RDW 15.8 H Plt Count 125 L MPV 9.8 Immature Gran % (Auto) 0.3 Neut % (Auto) 63.4 Lymph % (Auto) 24.1 [place] % (Auto) 8.0 Eos % (Auto) 3.9 Baso % (Auto) 0.3 Lymph # (Auto) 1.66 [place] # (Auto) 0.6 Eos # (Auto) 0.3 Baso # (Auto) 0.0 Abs Immat Gran (auto) 0.02 Absolute Neuts (auto) 4.4 Absolute Nucleated RBC 0.000 Nucleated RBC % 0.0 Sodium 142 Potassium 3.6 Chloride 100 Carbon Dioxide 38 H Anion Gap 4 BUN 20 H Creatinine 1.00 Estim Creat Clear Calc Not Reportable Estimated GFR 52 L Glucose 102 Calcium 8.5 Total Bilirubin 0.6 AST 21 ALT 14 Alkaline Phosphatase 74 Total Protein 6.0 L Albumin 3.1 L Quality VTE Prophylaxis VTE prophylaxis: pharmacologic ordered
[2024-02-08] MEDS: traZODone HCL 50 MG TABLET PO (21:00)
[2024-02-08] MEDS: PRAMIPEXOLE 0.5 MG TABLET PO (21:00)
[2024-02-08] MEDS: MIRTAZAPINE 15 MG TABLET PO (21:00)
[2024-02-08] MEDS: CITALOPRAM HYDROBROMIDE 20 MG TABLET PO (21:01)
[2024-02-08] MEDS: ATORVASTATIN 40 MG TABLET 80 MG PO (21:01)
[2024-02-09] VITALS (11 sets, daily range): BP systolic 93–131; BP diastolic 57–81; PULSE 61–92; RESP 16–22; TEMP 36.5–37.1; O2SAT 90–96
[2024-02-09 05:28] LABS: Basophils Percent Auto 0.5 % (0.2-1.2); Eosinophils Absolute Auto 0.2 K/mm3 (0-0.3); Eosinophils Percent Auto 3.9 % (0-4.4); Hematocrit 31.2 % (37.0-47.0); Hemoglobin 9.1 g/dL (12.0-15.0); Immature Granulocyte Absolute 0.01 K/mm3 (0.00-0.031); Immature Granulocyte Percent A 0.2 % (0-0.5); Lymphocytes Absolute Auto 1.52 K/mm3 (0.9-3.2); Lymphocytes Percent Auto 25.8 % (18.3-44.2); Mean Corpuscular HGB Conc 29.2 g/dl (32-36); Mean Corpuscular Hemoglobin 27.7 pg (26-34); Mean Corpuscular Volume 95.1 fl (80-100); Mean Platelet Volume 10.1 fl (7.4-10.4); Monocytes Absolute Auto 0.4 K/mm3 (0.1-0.6); Monocytes Percent Auto 6.6 % (2.6-8.5); Neutrophils Absolute Auto 3.7 K/mm3 (1.3-6.7); Platelet Count Result 155 k/mm3 (150-375); Red Blood Count 3.28 M/mm3 (4.2-5.4); Red Cell Distribution Width 15.2 % (11.5-14.5); White Blood Count 5.9 K/mm3 (4.5-10.0)
[2024-02-09 05:47] LABS: Alanine Aminotransferase 13 U/L (6-35); Albumin Level 3.4 g/dL (3.5-5.1); Alkaline Phosphatase 81 U/L (38-126); Anion Gap 6 mmol/L (4-12); Aspartate Amino Transferase 21 U/L (14-36); Bilirubin,Total 0.7 mg/dL (0.2-1.3); Blood Urea Nitrogen 21 mg/dL (7-17); Calcium 8.6 mg/dL (8.4-10.2); Carbon Dioxide 35 mmol/L (22-30); Chloride 99 mmol/L (98-107); Estimated Glomerular Filt Rate 59; Glucose 102 mg/dL (65-110); Potassium 3.6 mmol/L (3.4-5.0); Sodium 140 mmol/L (137-145)
[2024-02-09 05:56] LABS: Platelet Estimate Adequate (Adequate)
[2024-02-09 05:57] LABS: Anisocytosis 1+; Hypochromasia 1+; Large Platelets Present; Ovalocytes 1+; Schistocytes None Seen
[2024-02-09] MEDS: FLUTICASONE/UMECLIDIN/VILANTER 100-62.5-25 MCG ELLIPTA 1 PUFF INHALATION (07:56)
[2024-02-09] MEDS: FUROSEMIDE 20 MG TABLET PO (09:09)
[2024-02-09] MEDS: DOCUSATE SODIUM 100 MG CAPSULE PO (09:10)
[2024-02-09] MEDS: ARIPiprazole 2 MG TABLET PO (09:10)
[2024-02-09] MEDS: SENNOSIDES 8.6 MG TABLET PO (09:10)
[2024-02-09] MEDS: FERROUS SULFATE 325 MG TABLET DR PO (09:10)
[2024-02-09] MEDS: APIXABAN 5 MG TABLET PO (09:10)
[2024-02-09] MEDS: MEMANTINE 5 MG TABLET PO (09:10)
[2024-02-09] MEDS: CHOLECALCIFEROL 1,000 UNITS TABLET 1000 UNITS PO (09:10)
[2024-02-09] MEDS: PREGABALIN (*CRX) 50 MG CAPSULE 100 MG PO (09:10)
[2024-02-09] MEDS: PANTOPRAZOLE 40 MG TABLET PO (09:10)
[2024-02-09] MEDS: guaiFENesin 12 HR 600 MG TABCR 1200 MG PO (09:10)
[2024-02-09] MEDS: oxyCODONE HCL (*CRX) 5 MG TAB IR PO (09:11)
--- NOTE | 2024-02-09 10:19 | P.DS_ITS ---
DS: Admitting Diagnosis Discharge Date 02/09/2024 Admitting Diagnosis Shortness of breath DS: Discharge Diagnosis Discharge Diagnosis (1) COPD (chronic obstructive pulmonary disease): Code(s): J44.9 - Chronic obstructive pulmonary disease, unspecified Status: Acute (2) Pneumonia: Code(s): J18.9 - Pneumonia, unspecified organism Status: Acute (3) Chronic respiratory failure with hypoxia and hypercapnia: Code(s): J96.11 - Chronic respiratory failure with hypoxia; J96.12 - Chronic respiratory failure with hypercapnia Status: Acute (4) Pulmonary hypertension: Code(s): I27.20 - Pulmonary hypertension, unspecified Status: Acute (5) Pulmonary edema: Code(s): J81.1 - Chronic pulmonary edema Status: Acute (6) Hypertension: Code(s): I10 - Essential (primary) hypertension Status: Acute (7) Weakness: Code(s): R53.1 - Weakness Status: Acute DS: Summary Hospital Course Hospital Course: This is a 89-year-old female all that presents to the emergency department for shortness of breath and generalized weakness. Reports history of COPD, chronically wears oxygen via nasal cannula. Was recently discharged from rehab 8 days ago after being admitted to [facility]. Recently diagnosed with a PE. Reports a cough. Denies fevers. [employer] followed while here:Regarding her COPD: 35 pack year tobacco, quit 8-10 years ago, chronic hypoxemic respiratory failure wearing 1 L at rest, 2 L with activity and 2 L sleep. Chronic hypercarbic respiratory failure on noninvasive ventilation with the AVAPS AE mode and 2 L bleed in. previously followed at [place] Last office visit note 02/18/2023. Severe COPD per PFT in 2016. she was not interested in pulmonary rehabilitation. She is current on all her vaccines. Continue trelegy 100, albuterol inhaler nebulized rescue. 3 L with activity, 1 L at rest and 2 L at night. Noncompliant with CPAP and uninterested in restudy or trouble shooting. Pulmonary medications: trelegy 100-60 2.5-25 at 1 puff q.day rescue albuterol 2 puffs q. 4 hour p.r.n. shortness of breath or wheezing Rescue albuterol 2.5 mg nebs q.4 hours p.r.n. shortness of breath or wheezing guaifenesin 600 mg p.o. q.12 hours p.r.n. Eliquis 5 mg PO BID oxygen at rest and with ambulation per home O2 assessment which is orderd. when she naps or sleeps: home Belinda through [employer] with [id number] settings rate of 20, tidal volume 500, EPAP minimum 5, EPAP maximum 10, pressure support minimum 5, pressure support maximum 25 with 7 L bleed in. Follow-up in the Pulmonary Clinic with previously scheduled appointment on 02/16/2024. Patient completed 7 days of Ceftriaxone for pneumonia. No PE this visit. Echo 02/01/24 showed: Summary 1. Limited echocardiogram (no Doppler). 2. Moderate concentric LVH with vigorous systolic function. 3. Mildly sclerotic aortic valve without stenosis. Left ventricular systolic function is normal, estimated at 65-70%. Continue Macrobid 100 mg PO daily to prevent UTI. Patient discharging to [place] for PT/OT to strengthen prior to going back to [facility]. Status at Discharge Functional status at discharge: uses cane/walker Overall status at discharge: patient is not back to baseline Time Spent with Patient Time attestation: Total time spent providing and/or coordinating discharge services: Time spent: Greater than 30 minutes Exam Const: General: no acute distress and uncomfortable Eyes: Sclera: sclerae normal Resp: Effort & Inspection: normal respiratory effort Other: Bibasilar inspiratory crackles. No wheezes. Cardio: Rate: regular rate Rhythm: regular rhythm GI: GI Palp: Yes Soft to palpation Auscultation: normal bowel sounds Skin: General skin exam: no rashes or lesions noted Extrem: General: pedal edema bilaterally (trace) Psych: Mental Status: mental status grossly normal Affect: normal affect DS: Data Data Completed and Pending Labs on day of discharge: Labs from last 24 hours 02/09/24 05:19 WBC 5.9 RBC 3.28 L Hgb 9.1 L Hct 31.2 L MCV 95.1 MCH 27.7 MCHC 29.2 L RDW 15.2 H Plt Count 155 MPV 10.1 Immature Gran % (Auto) 0.2 Neut % (Auto) 63.0 Lymph % (Auto) 25.8 [place] % (Auto) 6.6 Eos % (Auto) 3.9 Baso % (Auto) 0.5 Lymph # (Auto) 1.52 [place] # (Auto) 0.4 Eos # (Auto) 0.2 Baso # (Auto) 0.0 Abs Immat Gran (auto) 0.01 Absolute Neuts (auto) 3.7 Absolute Nucleated RBC 0.000 Nucleated RBC % 0.0 Platelet Estimate Adequate Large Platelets Present Hypochromasia 1+ Anisocytosis 1+ Ovalocytes 1+ Schistocytes None seen Sodium 140 Potassium 3.6 Chloride 99 Carbon Dioxide 35 H Anion Gap 6 BUN 21 H Creatinine 0.90 Estim Creat Clear Calc Not Reportable Estimated GFR 59 Glucose 102 Calcium 8.6 Total Bilirubin 0.7 AST 21 ALT 13 Alkaline Phosphatase 81 Total Protein 6.0 L Albumin 3.4 L Discharge Plan Discharge Attending physician on discharge: Terence Arana Consulting providers: Juvenal Copeland; Rula Wright Discharging Clinician: Flaquita Barnes Anticipated Discharge Date/Time: 02/09/24 14:00 Patient Disposition: SNF Activity: august shower Diet: heart healthy Discharge Instructions: * Heart Healthy moderately (honey) thickened liquids diet. * when she naps or sleeps: home [place] through [employer] with [id number] settings rate of 20, tidal volume 500, EPAP minimum 5, EPAP maximum 10, pressure support minimum 5, pressure support maximum 25 with 5 L bleed in. * 02@4 liter at rest, 4 liters with activity. * Patient is on chronic Macrobid 100 mg PO daily to prevent UTI. Patient Instructions: Apixaban (By mouth), Heart Failure (GEN), Heart Healthy Diet (DC), COPD (Chronic Obstructive Pulmonary Disease) (ED), Pneumonia (DC) Stand Alone Forms: General Discharge Information, Halfway Discharge Follow-up/Referrals: Alma,BERE pUton [Primary Care Provider] - 2 Weeks Juvenal Copeland MD [Physician] - 02/16/24 Discharge Medications: New oxycodone 5 mg Tablet 5 mg PO Q4H PRN (Reason: Pain Rated 4-6) Qty: 10 0RF Continued docusate sodium 100 mg Capsule 100 mg PO BID Qty: 60 0RF mirtazapine [Remeron] 15 mg Tablet 15 mg PO HS Qty: 30 0RF trazodone 50 mg tablet 50 mg PO HS Qty: 30 0RF nitrofurantoin monohyd/m-cryst [Macrobid] 100 mg Capsule 100 mg PO DAILY Qty: 30 0RF Eliquis 5 mg tablet 5 mg PO BID Qty: 60 0RF bisacodyl 5 mg tablet,delayed release (DR/EC) 5 mg PO DAILY PRN (Reason: constipation ) aripiprazole 2 mg tablet 2 mg PO DAILY furosemide 20 mg tablet 20 mg PO DAILY polyethylene glycol 3350 [Miralax] 17 gram Powder In Packet 17 g PO QAM PRN (Reason: Constipation) Qty: 30 0RF amlodipine [Norvasc] 5 mg Tablet 5 mg PO DAILY Qty: 90 0RF atorvastatin 80 mg Tablet 80 mg PO HS memantine 5 mg Tablet 5 mg PO Q12H pramipexole [Mirapex] 0.5 mg Tablet 0.5 mg PO HS ferrous sulfate 325 mg (65 mg iron) tablet 325 mg PO Q48H Rx Instructions: due thursday pregabalin 100 mg capsule 100 mg PO Q12H citalopram 20 mg tablet 20 mg PO QHS lidocaine [Lidocaine Pain Relief] 4 % adhesive patch,medicated 1 patch transdermal DAILY PRN (Reason: Back Pain) Rx Instructions: Apply to back as needed guaifenesin [Mucus Relief ER] 600 mg tablet extended release 12hr 600 mg PO Q12HR PRN (Reason: Congestion) PreserVision AREDS-2 250-90-40-1 mg Capsule 1 tablet PO DAILY oxycodone 5 mg tablet 5 mg PO Q4H PRN (Reason: Pain Rated 4-6) albuterol sulfate 2.5 mg /3 mL (0.083 %) Solution For Nebulization 2.5 mg INHALATION Q8H PRN (Reason: wheezing) cholecalciferol (vitamin D3) [Vitamin D3] 25 mcg (1,000 unit) Capsule 25 mcg PO DAILY pantoprazole 40 mg tablet,delayed release (DR/EC) 40 mg PO QAM Qty: 30 0RF Trelegy Ellipta 100-62.5-25 mcg Blister With Device 1 inh INHALATION DAILY Qty: 28 0RF Date of admission: 01/30/24 17:19 Primary Care Provider: AlmaAlexsandra Admitting Provider: Jethro Shrestha Attending physician on admission: Gina Marie Condition: Stable Hospitalist MIPS Heart Failure (Exclusion) Patient has history of Heart Transplant or Left Ventricular Assistive Device?: No IF YES, STOP HERE Heart Failure (Qualifier) Patient has current or prior documentation of LVEF less than or equal to 40%, or mod/servere depressed LVSF?: No IF NO, STOP HERE
[2024-02-09] MEDS: NITROFURANTOIN MONOHYD MACROCR 100 MG CAP PO (12:30)
== END 2024-02-09 14:27 | DRG 194 ==
LOC: ANHED 15:24 → ANH3MEDSUR 16:06 → ANHIMU 02-02 06:11
PROVIDERS: Emergency Medicine; Internal Medicine Pulmonary Disease; Nurse Practitioner; Admitting Provider Internal Medicine; Emergency Provider Physician Assistant; PCP Physician Assistant; Visit Provider Nurse Practitioner Family
DX: J18.9 Pneumonia, unspecified organism (principal); I50.30 Unspecified diastolic (congestive) heart failure; J96.11 Chronic respiratory failure with hypoxia; J96.12 Chronic respiratory failure with hypercapnia; J44.1 Chronic obstructive pulmonary disease with (acute) exacerbation; J44.0 Chronic obstructive pulmonary disease with (acute) lower respiratory infection; D64.9 Anemia, unspecified; E66.9 Obesity, unspecified; F41.8 Other specified anxiety disorders; G89.4 Chronic pain syndrome; I11.0 Hypertensive heart disease with heart failure; I95.9 Hypotension, unspecified; I48.0 Paroxysmal atrial fibrillation; K21.9 Gastro-esophageal reflux disease without esophagitis; R41.9 Unspecified symptoms and signs involving cognitive functions and awareness; Z66 Do not resuscitate; Z99.81 Dependence on supplemental oxygen; Z86.718 Personal history of other venous thrombosis and embolism; Z86.711 Personal history of pulmonary embolism; Z87.891 Personal history of nicotine dependence; Z99.89 Dependence on other enabling machines and devices; Z91.199 Patient's noncompliance with other medical treatment and regimen due to unspecified reason; Z79.01 Long term (current) use of anticoagulants; Z20.822 Contact with and (suspected) exposure to COVID-19; Z90.49 Acquired absence of other specified parts of digestive tract
CPT/HCPCS: 36415; 36600; 71045; 71046; 71275; 73610; 73620; 80053; 82104; 82805; 83605; 83880; 84145; 84439; 84443; 85018; 85025; 85055; 86738; 87040; 87449; 87633; 87637; 87641; 87899; 93005; 93308; 94640; 94668; 94762; 96365; 96367; 97110; 97116; 97161; 97166; 97530; 97535; 99285; A9270; G0378; J0456; J0696; J1940; J7040; P9047; Q9967

== ENCOUNTER 2024-03-10 12:34 | Inpatient (IN) | payer MEDICARE, SELFPAY ==
[2024-03-10] VITALS (23 sets, daily range): BP systolic 91–124; BP diastolic 54–94; PULSE 5–125; RESP 12–27; TEMP 36.3–37.2; O2SAT 53–100; BMI 29.2; BMI 34.9
--- NOTE | ~2024-03-10 | XR_ITS ---
EXAMINATION: XR chest 1V portable DATE: 03/15/2024 14:08 INDICATION: Cough and shortness of breath. TECHNIQUE: A single frontal view of the chest was obtained. COMPARISON: Chest single view 03/12/2024 FINDINGS: Again seen is mild elevation of right hemidiaphragm. There are airspace opacities in the lo wer lung zones. No pleural effusion or pneumothorax. The heart size is normal. There is a moderate-si zed hiatal hernia. There are changes of posterior fusion procedure in cervical spine. There is old he aled fracture of proximal left humerus. There are changes of vertebroplasty at T12. Surgical clips in the right upper quadrant are likely from cholecystectomy. IMPRESSION: 1. Stable airspace opacities in the lower lung zones, consistent with atelectasis versus pneumonia. 2. Moderate-sized hiatal hernia. Reviewed, dictated and finalized at location A. SHING MACHINE TENDER IMPRESSION: 1. Stable airspace opacities in the lower lung zones, consistent with atelectas is versus pneumonia. 2. Moderate-sized hiatal hernia.
--- NOTE | ~2024-03-10 | CT_ITS ---
EXAMINATION: CTA chest PE protocol DATE: 03/10/2024 13:45 INDICATION: Dyspnea TECHNIQUE: Computed tomography (CT) pulmonary angiogram of the chest was performed with 100 mL Omnipa que-350 intravenous contrast. Additional 3D reconstructions utilizing coronal maximum intensity proje ction (MIP) were performed. Automated exposure control and iterative reconstruction technique were em ployed. The dose-length product was 677.76 mGy-cm. COMPARISON: 02/01/2024 FINDINGS: No pulmonary embolism. There is consolidation with associated volume loss and relatively homogeneous parenchymal enhancement consistent with atelectasis in the bilateral lower lobes, left greater than r ight. There is consolidation with lower density and some adjacent groundglass opacity in the dependen t left upper lobe and lingula which is more suspicious for pneumonia. There are some scattered mild s mooth septal line thickening most prominent at the upper lungs consistent with mild pulmonary edema. Very small left pleural effusion. Mild cardiomegaly. Atherosclerotic coronary artery calcific locatio n. Aortic valve calcifications. No pericardial effusion. Thoracic aorta is normal in caliber with no dissection. Moderate to large sliding-type hiatal hernia. Calcified left hilar and mediastinal lymph nodes along with a few scattered hepatic and splenic calci fications, all consistent with old granulomatous disease. There are a few additional mildly prominent but still normal-sized mediastinal and bilateral hilar lymph nodes which are likely reactive. 3 cm l eft renal cyst. A couple subcentimeter cysts in the left hepatic lobe. Cholecystectomy clips at the g allbladder fossa. Visualized portions of bowels are unremarkable. Severe thoracic spondylosis with no interval change in chronic compression and burst fractures at T8-T11 with prior vertebroplasty at T9 . IMPRESSION: 1. No pulmonary embolism. 2. Consolidation the bilateral lower lobes with associated volume loss and more likely related atelec tasis/partial collapse with lower density consolidation with surrounding groundglass opacities in the dependent left upper lobe and lingula which is more suspicious for pneumonia. 3. Mild cardiomegaly with minimal pulmonary edema at the visualized upper lungs and very small left p leural effusion. 4. Large sliding-type hiatal hernia. Reviewed, dictated and finalized at location A. R TAXI FERRY OPERATOR IMPRESSION: 1. No pulmonary embolism. 2. Consolidation the bilateral lower lobes with associated volume loss and more likely related atelectasis/partial collapse with lower density consolidation w ith surrounding groundglass opacities in the dependent left upper lobe and ling brandon which is more suspicious for pneumonia. 3. Mild cardiomegaly with minimal pulmonary edema at the visualized upper lungs and very small left pleural effusion. 4. Large sliding-type hiatal hernia.
--- NOTE | ~2024-03-10 | XR_ITS ---
XR chest 1V portable DATE: 03/12/2024 12:28 INDICATION: Shortness of breath TECHNIQUE: Portable upright AP chest on 03/12/2024 at 1220 hours COMPARISON: 03/10/2024 CTA chest FINDINGS: There is moderate elevation of the right leaf of the diaphragm and persistent bilateral mid and to a greater extent lower lobe atelectasis and/or infiltrate. Borderline heart size. Aortic atherosclerotic calcification. No significant pleural effusion. No pneumothorax. Diffuse osteopenia. Status post posterior cervical spine surgical fusion. Vertebroplasty is noted at approximately T12. Status post cholecystectomy. IMPRESSION: Persistent bilateral mid and to a greater extent lower lobe atelectasis and/or infiltrate Reviewed, dictated and finalized at location A. CATESSEN CLERK IMPRESSION: Persistent bilateral mid and to a greater extent lower lobe atelect asis and/or infiltrate
--- NOTE | ~2024-03-10 | XR_ITS ---
XR chest 1V portable Ordering provider: Erika Farr PA-C History: 89 years Female with . shortness of breath . Comparison: February 06, 2024 FINDINGS: MEDIASTINUM: The cardiac silhouette is not enlarged. LUNGS: No effusions or pneumothorax. Opacification in the left lower lobe is seen suggestive of pneum onia. Minimal opacification in the right lung bases suggestive of atelectasis versus pneumonia. OTHER: No free air under the diaphragm. Degenerative the spine with vertebroplasty in L1. IMPRESSION: Left basilar pneumonia. Changes increased compared to previous study. Minimal right basal atelectasis versus pneumonia. Reviewed, dictated and finalized at location A. ER FINISHER
--- NOTE | 2024-03-10 12:35 | ECG_ITS ---
Test Date: 2024-03-10 12:45:07 Measurements Intervals [place] Rate: 103 P: 49 IN: 160 QRS: 56 QRSD: 140 T: -34 QT: 348 QTc: 456 Interpretive Statements SINUS TACHYCARDIA RIGHT BUNDLE BRANCH BLOCK BASELINE ARTIFACT- I, II, III, AVR, AVL, AVF, V1-V6 ABNORMAL ECG Compared to ECG 01/30/2024 13:08:31 NO SIGNIFICANT CHANGE Electronically Signed On 03-10-2024 17:55:03 MORTGAGE MANAGER by Cristian Sanchez D.O.
--- NOTE | 2024-03-10 12:42 | ED_ITS ---
HPI - SOB/Dyspnea General Chief Complaint: Shortness of Breath/Dyspnea <Erika Farr PA-C - Last Filed: 03/10/24 18:19> Stated Complaint: DYSPNEA <Erika Farr PA-C - Last Filed: 03/10/24 18:19> History of Present Illness HPI Narrative: 89-year-old female history of ROSALIA, CHF, COPD, hyperlipidemia, chronic hypoxic respiratory failure on 2 L nasal cannula baseline presents to the ED via EMS from [facility] for shortness of breath for approximately 1 week. Patient states she has been feeling more short of breath for 1 month. Reports nonproductive cough that is increased from her baseline. States she tries to stay around 2 L nasal cannula but at times has to increase her oxygen due to shortness of breath. EMS states upon arrival to the longterm the patient is on 10 L nasal cannula. She reports associated exertional dyspnea and orthopnea. Denies chest pain, abdominal pain, fever. Reports lower extremity edema that seems to be increased from baseline but has been wearing her compression stockings. She been taking her meds as directed including Eliquis for prior PE, 20 mg of Lasix daily and has been using her nebulizers with some improvement. <Erika Farr PA-C - Last Filed: 03/10/24 18:19> Related Data Home Medications: Home Medications Medication Instructions Recorded Confirmed atorvastatin 80 mg tablet 80 mg PO HS 03/04/22 01/30/24 memantine 5 mg tablet 5 mg PO Q12H 03/04/22 01/30/24 pramipexole 0.5 mg tablet (Mirapex) 0.5 mg PO HS 03/07/22 01/30/24 ferrous sulfate 325 mg (65 mg 325 mg PO Q48H 10/01/22 01/30/24 iron) tablet pregabalin 100 mg capsule 100 mg PO Q12H 10/01/22 01/30/24 albuterol sulfate 2.5 mg/3 mL 2.5 mg inhalation Q8H PRN wheezing 10/13/22 01/30/24 (0.083 %) solution for nebulization cholecalciferol (vitamin D3) 25 25 mcg PO DAILY 10/13/22 01/30/24 mcg (1,000 unit) capsule (Vitamin D3) citalopram 20 mg tablet 20 mg PO QHS 02/20/23 01/30/24 guaifenesin 600 mg tablet, 600 mg PO Q12HR PRN Congestion 09/01/23 01/30/24 extended release 12 hr (Mucus Relief ER) lidocaine 4 % topical patch 1 patch transdermal DAILY PRN Back 09/01/23 01/30/24 (Lidocaine Pain Relief) Pain aripiprazole 2 mg tablet 2 mg PO DAILY 09/17/23 01/30/24 bisacodyl 5 mg tablet,delayed 5 mg PO DAILY PRN constipation 09/17/23 01/30/24 release furosemide 20 mg tablet 20 mg PO DAILY 09/17/23 01/30/24 vit C 250 mg-vit E 90 mg-zinc 40 1 tablet PO DAILY 12/05/23 01/30/24 mg-copper 1 [id number] capsule (PreserVision AREDS-2) oxycodone 5 mg tablet 5 mg PO Q4H PRN Pain Rated 4-6 01/30/24 01/30/24 <Erika Farr PA-C - Last Filed: 03/10/24 18:19> Allergies/Adverse Reactions: Allergies Allergy/AdvReac Type Severity Reaction Status Date / Time meperidine [From Demerol] Allergy Unknown Unknown Verified 01/30/24 15:17 rofecoxib [From Vioxx] Allergy Unknown Unknown Verified 12/29/23 19:06 zolpidem [From Ambien] Allergy Unknown Unknown Verified 01/30/24 15:17 chlorpromazine AdvReac Unknown Unknown Verified 01/30/24 15:17 [From Thorazine] diphenhydramine AdvReac Unknown Jittery Verified 01/30/24 16:49 [From Benadryl] <Erika Farr PA-C - Last Filed: 03/10/24 18:19> Review of Systems Review of Systems: All systems reviewed & are unremarkable except as noted in HPI and below <Erika Farr PA-C - Last Filed: 03/10/24 18:19> PMFSH Past Medical History Medical History: Medical History Chronic GERD Chronic obstructive pulmonary disease Chronic pain syndrome Chronic respiratory failure with hypoxia and hypercapnia Deep venous thrombosis Depression with anxiety Heart failure with preserved ejection fraction Hiatal hernia History of tobacco abuse Obstructive sleep apnea Obstructive sleep apnea Paroxysmal atrial fibrillation <Erika Farr PA-C - Last Filed: 03/10/24 18:19> Surgical History Surgical History: Surgical History History of bladder repair surgery History of breast surgery History of cataract extraction History of cholecystectomy History of colonoscopy History of esophagogastroduodenoscopy History of foot surgery History of fusion of cervical spine History of hernia repair History of hysterectomy History of spinal surgery History of tonsillectomy <Erika Farr PA-C - Last Filed: 03/10/24 18:19> Family History Family History: Family History Father Bladder cancer Mother Hypertension Depression Sibling Asthma Hypertension Depression Grandparent Hypertension Heart disease Cerebrovascular accident Grandparent Alcoholism Lung cancer <Erika Farr PA-C - Last Filed: 03/10/24 18:19> Social History Social History: Social History Social History: Surrogate medical decision maker: Tyrone Bullard, son. Code status: Full code. Smoking packs per day: 1 Smoking cigarettes per day: 20.0 Years smoked: 20 Smoking pack-years: 20.00 Smoking status: Former smoker Tobacco type: cigarettes Second hand tobacco smoke exposure: Yes Alcohol intake: never Drinks per week: 1 Substance use: current Substance use type: marijuana Other substance usage details: THC gummy for sleep on occasion Do You Feel Safe in your Home?: Yes Lack of Transportation: No Lack of Food: Never True Current Housing: I Have Housing Concerned About Future Housing: No Difficulty Paying Gas/Electric Bills: No Difficulty Paying for Meds: No Currently Unemployed: No Education: Bachelor's Degree Difficulty w/ Childcare or Family Care: No Additional living arrangements comments: with 3 children. Lives at [facility]. 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 Spiritual care concerns: No <Erika Farr PA-C - Last Filed: 03/10/24 18:19> Exam Narrative: GENERAL: Well-appearing, well-nourished, and in no acute distress. HEAD: Normocephalic, atraumatic. EYES: EOMI. ENT: Nares clear, no rhinorrhea or epistaxis. Mucous membranes moist. NECK: Supple. CHEST: crackles throughout all lung rosas with minimal wheezing in the bases of the lungs. Patient is satting 93% on 2 L nasal cannula in no acute distress. Speaking in full sentences. No labored breathing. HEART: Regular rate and rhythm. No murmur heard. Normal peripheral pulses. ABDOMEN: Soft, nontender, nondistended, normal active bowel sounds. EXTREMITIES: Normal range of motion. 1+ pitting edema to bilateral lower extremities SKIN: Warm, dry, no rash. NEURO: No focal deficits. Alert and oriented x3 <Erika Farr PA-C - Last Filed: 03/10/24 18:19> Course ADMITTING MANAGER/PA Physician Supervision This visit was performed by both a physician and an APC. I performed all aspects of the MDM as documented. <David Steele MD - Last Filed: 03/10/24 15:37> Vital Signs Vital signs: Vital Signs Temperature 97.4 F L 03/10/24 12:32 Pulse Rate 125 H 03/10/24 12:32 Respiratory Rate 20 03/10/24 12:32 Blood Pressure 122/74 03/10/24 12:32 Pulse Oximetry 92 03/10/24 12:32 Oxygen Delivery Nasal Cannula 03/10/24 12:32 Oxygen Flow Rate 2 03/10/24 12:32 Temperature 97.4 F L 03/10/24 12:32 Pulse Rate 88 03/10/24 15:46 Respiratory Rate 18 03/10/24 15:46 Blood Pressure 93/54 L 03/10/24 15:45 Pulse Oximetry 96 03/10/24 15:46 Oxygen Delivery BiPAP 03/10/24 13:51 Oxygen Flow Rate 15 03/10/24 13:01 <Erika Farr PA-C - Last Filed: 03/10/24 18:19> Vital Signs Temperature 97.4 F L 03/10/24 12:32 Pulse Rate 125 H 03/10/24 12:32 Respiratory Rate 20 03/10/24 12:32 Blood Pressure 122/74 03/10/24 12:32 Pulse Oximetry 92 03/10/24 12:32 Oxygen Delivery Nasal Cannula 03/10/24 12:32 Oxygen Flow Rate 2 03/10/24 12:32 Temperature 97.4 F L 03/10/24 12:32 Pulse Rate 88 03/10/24 15:46 Respiratory Rate 18 03/10/24 15:46 Blood Pressure 93/54 L 03/10/24 15:45 Pulse Oximetry 96 03/10/24 15:46 Oxygen Delivery BiPAP 03/10/24 13:51 Oxygen Flow Rate 15 03/10/24 13:01 <David Steele MD - Last Filed: 03/10/24 15:37> MDM - SOB/Dyspnea MDM Narrative Medical decision making narrative: 89-year-old female with history of chronic hypoxic respiratory failure secondary to CHF and COPD presents to the emergency department via EMS from [facility] for increased shortness of breath. See HPI for further history. Upon arrival to the ED patient is satting 93% on her baseline 2 L nasal cannula in no acute distress. She is speaking in full sentences. No labored breathing. Lung sounds significant for crackles throughout all lung rosas and minimal wheezing in lung bases. CBC shows no leukocytosis, stable hemoglobin of 10.6. Chemistries reveal chronically elevated bicarb. ABG reflexes with a pCO2 of 83.8, PO2 of 132.2, bicarb of 43.3, pH of 7.331. Patient is a chronic CO2 retainer due to COPD. Her BNP is elevated at 994 which is increased from her baseline. COVID, flu RSV are negative. CTA chest PE obtained given history of PE which shows the followin. No pulmonary embolism. 2. Consolidation the bilateral lower lobes with associated volume loss and more likely related atelectasis/partial collapse with lower density consolidation with surrounding groundglass opacities in the dependent left upper lobe and lingula which is more suspicious for pneumonia. 3. Mild cardiomegaly with minimal pulmonary edema at the visualized upper lungs and very small left pleural effusion. 4. Large sliding-type hiatal hernia. during patient's ED stay, she became hypoxic in the mid 70s with a good pleth. this occurred while she was actively having coughing fits. She stayed in the mid 70s for quite a while so was placed on BiPAP and is tolerating it well. O2 now 99%. Bedside ultrasound does reveal B lines consistent with CHF exacerbation. I suspect COPD/ pneumonia/ pulmonary edema source of patient's symptoms. She was given an hour long DuoNeb, 125 mg of Solu-Medrol, 40 mg of Lasix that was started on Zosyn given recent hospital stay to cover HAP. Discussed with the hospitalist ADMITTING MANAGER, Sharifa, who agrees to admission. <Erika Farr PA-C - Last Filed: 03/10/24 18:19> Lab Data Result diagrams: 03/10/24 13:01 03/10/24 13:01 <Erika Farr PA-C - Last Filed: 03/10/24 18:19> Labs: Lab Results 03/10/24 03/10/24 Range/Units 13:01 13:07 WBC 8.2 (4.5-10.0) K/mm3 RBC 3.87 L (4.2-5.4) M/mm3 Hgb 10.6 L (12.0-15.0) g/dL Hct 37.4 (37.0-47.0) % MCV 96.6 (80-100) fl MCH 27.4 (26-34) pg MCHC 28.3 L (32-36) g/dl RDW 14.8 H (11.5-14.5) % Plt Count 156 (150-375) k/mm3 MPV 9.9 (7.4-10.4) fl Immature Gran % (Auto) 0.4 (0-0.5) % Neut % (Auto) 80.2 H (45.5-73.1) % Lymph % (Auto) 13.0 L (18.3-44.2) % [place] % (Auto) 5.4 (2.6-8.5) % Eos % (Auto) 0.9 (0-4.4) % Baso % (Auto) 0.1 L (0.2-1.2) % Lymph # (Auto) 1.07 (0.9-3.2) K/mm3 [place] # (Auto) 0.4 (0.1-0.6) K/mm3 Eos # (Auto) 0.1 (0-0.3) K/mm3 Baso # (Auto) 0.0 (0.0-0.1) K/mm3 Abs Immat Gran (auto) 0.03 (0.00-0.031) K/mm3 Absolute Neuts (auto) 6.6 (1.3-6.7) K/mm3 Absolute Nucleated RBC 0.000 (0.0-0.012) K/mm3 Nucleated RBC % 0.0 (0.0-0.2) % PT 17.2 H (11.1-14.7) Seconds INR 1.4 APTT 31.1 (22.3-36.8) Seconds Sodium 143 (137-145) mmol/L Potassium 3.5 (3.4-5.0) mmol/L Chloride 92 L (98-107) mmol/L Carbon Dioxide > 40 H (22-30) mmol/L Anion Gap (4-12) mmol/L BUN 18 H (7-17) mg/dL Creatinine 0.80 (0.7-1.0) mg/dL Estim Creat Clear Calc Not Reportable Estimated GFR > 60 (59 - ) Glucose 116 H (65-110) mg/dL Lactic Acid 2.4 H (0.7-2.0) mmol/L Calcium 8.8 (8.4-10.2) mg/dL Magnesium 2.2 (1.6-2.3) mg/dL Total Bilirubin 0.8 (0.2-1.3) mg/dL AST 34 (14-36) U/L ALT 19 (6-35) U/L Alkaline Phosphatase 95 (38-126) U/L NT-Pro-B Natriuret Pep 994 H (19.9-100) pg/mL Total Protein 7.0 (6.3-8.2) g/dL Albumin 4.2 (3.5-5.1) g/dL Procalcitonin 0.1 ng/mL Influenza A (RT-PCR) Negative (Negative) Influenza B (RT-PCR) Negative (Negative) RSV (RT-PCR) Negative (Negative) SARS-CoV-2 RNA (RT-PCR) Negative (Negative) <Erika Farr PA-C - Last Filed: 03/10/24 18:19> Lab Results 03/10/24 03/10/24 Range/Units 13:01 13:07 WBC 8.2 (4.5-10.0) K/mm3 RBC 3.87 L (4.2-5.4) M/mm3 Hgb 10.6 L (12.0-15.0) g/dL Hct 37.4 (37.0-47.0) % MCV 96.6 (80-100) fl MCH 27.4 (26-34) pg MCHC 28.3 L (32-36) g/dl RDW 14.8 H (11.5-14.5) % Plt Count 156 (150-375) k/mm3 MPV 9.9 (7.4-10.4) fl Immature Gran % (Auto) 0.4 (0-0.5) % Neut % (Auto) 80.2 H (45.5-73.1) % Lymph % (Auto) 13.0 L (18.3-44.2) % [place] % (Auto) 5.4 (2.6-8.5) % Eos % (Auto) 0.9 (0-4.4) % Baso % (Auto) 0.1 L (0.2-1.2) % Lymph # (Auto) 1.07 (0.9-3.2) K/mm3 [place] # (Auto) 0.4 (0.1-0.6) K/mm3 Eos # (Auto) 0.1 (0-0.3) K/mm3 Baso # (Auto) 0.0 (0.0-0.1) K/mm3 Abs Immat Gran (auto) 0.03 (0.00-0.031) K/mm3 Absolute Neuts (auto) 6.6 (1.3-6.7) K/mm3 Absolute Nucleated RBC 0.000 (0.0-0.012) K/mm3 Nucleated RBC % 0.0 (0.0-0.2) % PT 17.2 H (11.1-14.7) Seconds INR 1.4 APTT 31.1 (22.3-36.8) Seconds Sodium 143 (137-145) mmol/L Potassium 3.5 (3.4-5.0) mmol/L Chloride 92 L (98-107) mmol/L Carbon Dioxide > 40 H (22-30) mmol/L Anion Gap (4-12) mmol/L BUN 18 H (7-17) mg/dL Creatinine 0.80 (0.7-1.0) mg/dL Estim Creat Clear Calc Not Reportable Estimated GFR > 60 (59 - ) Glucose 116 H (65-110) mg/dL Lactic Acid 2.4 H (0.7-2.0) mmol/L Calcium 8.8 (8.4-10.2) mg/dL Magnesium 2.2 (1.6-2.3) mg/dL Total Bilirubin 0.8 (0.2-1.3) mg/dL AST 34 (14-36) U/L ALT 19 (6-35) U/L Alkaline Phosphatase 95 (38-126) U/L NT-Pro-B Natriuret Pep 994 H (19.9-100) pg/mL Total Protein 7.0 (6.3-8.2) g/dL Albumin 4.2 (3.5-5.1) g/dL Procalcitonin 0.1 ng/mL Influenza A (RT-PCR) Negative (Negative) Influenza B (RT-PCR) Negative (Negative) RSV (RT-PCR) Negative (Negative) SARS-CoV-2 RNA (RT-PCR) Negative (Negative) <David Steele MD - Last Filed: 03/10/24 15:37> ABG Data ABG results: 03/10/24 13:13 Puncture Site Right radial ABG pH 7.331 L ABG pCO2 83.8 H* ABG pO2 132.4 H ABG PO2/FiO2 Ratio 1.32 ABG HCO3 43.3 H ABG O2 Saturation 98.3 ABG O2 Content 15.0 L ABG Base Excess 14.3 A-a Gradient 484.0 Oxyhemoglobin 97.4 Total Hemoglobin 10.8 L O2 Delivery Device Non-rebreather mask O2 Liters/Min 15.0 FiO2 100 <Erika Farr PA-C - Last Filed: 03/10/24 18:19> 03/10/24 13:13 Puncture Site Right radial ABG pH 7.331 L ABG pCO2 83.8 H* ABG pO2 132.4 H ABG PO2/FiO2 Ratio 1.32 ABG HCO3 43.3 H ABG O2 Saturation 98.3 ABG O2 Content 15.0 L ABG Base Excess 14.3 A-a Gradient 484.0 Oxyhemoglobin 97.4 Total Hemoglobin 10.8 L O2 Delivery Device Non-rebreather mask O2 Liters/Min 15.0 FiO2 100 <David Steele MD - Last Filed: 03/10/24 15:37> Discharge Plan Discharge Clinical Impression: Acute and chronic respiratory failure with hypoxia Pneumonia Qualifiers: Pneumonia type: due to unspecified organism Laterality: bilateral Lung location: lower lobe of lung Qualified Code(s): J18.9 - Pneumonia, unspecified organism Pulmonary edema Qualifiers: Chronicity: acute Qualified Code(s): J81.0 - Acute pulmonary edema <Erika Farr PA-C - Last Filed: 03/10/24 18:19> Patient Disposition: Still a Patient <Erika Farr PA-C - Last Filed: 03/10/24 18:19> Condition: Serious <Erika Farr PA-C - Last Filed: 03/10/24 18:19>
[2024-03-10 13:07] LABS: Basophils Percent Auto 0.1 % (0.2-1.2); Eosinophils Absolute Auto 0.1 K/mm3 (0-0.3); Eosinophils Percent Auto 0.9 % (0-4.4); Hematocrit 37.4 % (37.0-47.0); Hemoglobin 10.6 g/dL (12.0-15.0); Immature Granulocyte Absolute 0.03 K/mm3 (0.00-0.031); Immature Granulocyte Percent A 0.4 % (0-0.5); Lymphocytes Absolute Auto 1.07 K/mm3 (0.9-3.2); Mean Corpuscular HGB Conc 28.3 g/dl (32-36); Mean Corpuscular Hemoglobin 27.4 pg (26-34); Mean Corpuscular Volume 96.6 fl (80-100); Mean Platelet Volume 9.9 fl (7.4-10.4); Monocytes Absolute Auto 0.4 K/mm3 (0.1-0.6); Monocytes Percent Auto 5.4 % (2.6-8.5); Neutrophils Absolute Auto 6.6 K/mm3 (1.3-6.7); Neutrophils Percent Auto 80.2 % (45.5-73.1); Platelet Count Result 156 k/mm3 (150-375); Red Blood Count 3.87 M/mm3 (4.2-5.4); Red Cell Distribution Width 14.8 % (11.5-14.5); White Blood Count 8.2 K/mm3 (4.5-10.0)
[2024-03-10] MEDS: methylPREDNISolone SOD SUCC 125 MG VIAL IV PUSH (13:10)
[2024-03-10 13:17] LABS: INR 1.4; Prothrombin Time 17.2 Seconds (11.1-14.7)
[2024-03-10 13:18] LABS: Alanine Aminotransferase 19 U/L (6-35); Albumin Level 4.2 g/dL (3.5-5.1); Alkaline Phosphatase 95 U/L (38-126); Aspartate Amino Transferase 34 U/L (14-36); Bilirubin,Total 0.8 mg/dL (0.2-1.3); Blood Urea Nitrogen 18 mg/dL (7-17); Calcium 8.8 mg/dL (8.4-10.2); Carbon Dioxide > 40 mmol/L (22-30); Chloride 92 mmol/L (98-107); Estimated Glomerular Filt Rate > 60; Glucose 116 mg/dL (65-110); Lactic Acid Reflex 2.4 mmol/L (0.7-2.0); Magnesium 2.2 mg/dL (1.6-2.3); Partial Thromboplastin Time 31.1 Seconds (22.3-36.8); Potassium 3.5 mmol/L (3.4-5.0); Sodium 143 mmol/L (137-145)
[2024-03-10] MEDS: PIPERACILLIN/TAZ 4.5G/NS 100ML 4.5 GM/100 ML BAG IVPB ×2 (13:22→21:18)
[2024-03-10 13:25] LABS: NT Pro B Type Natriuretic Pept 994 pg/mL (19.9-100)
[2024-03-10 13:30] LABS: Base Excess ABG 14.3 mEq/l (+/-2.0); Fractional Inspired Oxygen 100 %; HCO3 ABG 43.3 mEq/l (22.0-26.0); Oxygen Saturation ABG 98.3 % (95.0-100.0); Oxyhemoglobin 97.4 % THb (90.0-100.0); PO2 ABG 132.4 mmHg (80.0-100.0); PO2 FiO2 Ratio Arterial Blood 1.32 %; Total Hemoglobin 10.8 g/dL (12.0-18.0); pH ABG 7.331 (7.350-7.450)
[2024-03-10 13:34] LABS: Device NON-REBREATHER MASK; Modified Allen's Test Pass; PCO2 ABG 83.8 mmHg (35.0-45.0); Site Drawn RIGHT RADIAL
[2024-03-10 13:47] LABS: Influenza A QL RT-PCR Negative (Negative); Influenza B QL RT-PCR Negative (Negative); RSV RNA, RT-PCR Negative (Negative); SARS-CoV-2 RNA PCR Negative (Negative)
[2024-03-10] MEDS: IPRATROPIUM 0.5 MG/ALBUTEROL SULFATE 2.5 MG AMPUL.NEB 3 ML INHALATION ×3 (13:48→13:50)
--- NOTE | 2024-03-10 13:50 | PCRCNOTE ---
tx late due to other pt testing then pt going to CT
[2024-03-10] MEDS: FUROSEMIDE INJ 40 MG/4 ML VIAL IV PUSH (13:56)
--- NOTE | 2024-03-10 14:23 | PM.IMHP ---
H&P: HPI History of Present Illness Date/Time: 03/10/24 14:23 Chief Complaint: Shortness of Breath Narrative: 89 y/o F presents here with shortness of breath with PMH of asthma and COPD, chronic respiratory failure with hypoxia and hypercapnia (on 2L NC chronically), DVT, GERD, HFpEF, ROSALIA, and paroxysmal AFib. The patient presents here from [facility] via EMS for further evaluation of shortness of breath. She reports onset approximately 1 to 2 weeks ago. At baseline she has a dry cough that she reports has worsened over the last 1-2 weeks and is now slightly productive. She has a history of COPD and chronic hypoxic respiratory is air within baseline supplemental O2 requirement-2 L NC. Shortness of breath worsens with lying flat and exertion it is alleviated with rest. Now also accompanied by mild to moderate lower extremity edema per patient's assessment. The patient denies associated chest pain, fever, chills, or worsened body aches (achy all over at baseline). Patient has been utilizing her home nebulizers without improvement. Has history of PE for which she is compliant with her home Eliquis. Also has history of heart failure with preserved EF for which she takes 20 mg of Lasix daily, also reports compliance with this medication. Initial VS at presentation: 97.4? F, HR 125, RR 20, 122/74, and 92% on 2L NC. ED workup showed: No leukocytosis, hemoglobin 10.6 (previously 9.1 on 02/09/2024), INR 1.4, ABG showed CO2 of 83.8 and pH of 7.331, CO2 >40 on CKD, creatinine 0.8 and GFR >60, glucose 116, lactic 2.4, BNP 94, and viral PCR negative. CXR showed left basilar pneumonia with increase in size compared to previous study and minimal right basilar atelectasis versus pneumonia. Chest CTA showed no PE, consolidation in the bilateral lobes with lower density consolidation with surrounding ground-glass opacities in the dependent left lower lobe and lingula which is more suspicious for pneumonia, mild cardiomegaly with minimal pulmonary edema and a very small left pleural effusion, and a large sliding hiatal hernia. Review of Systems Review of Systems: All systems reviewed & are unremarkable except as noted in HPI and below PMFSH Past Medical History Medical History Chronic GERD Chronic obstructive pulmonary disease Chronic pain syndrome Chronic respiratory failure with hypoxia and hypercapnia Deep venous thrombosis Depression with anxiety Heart failure with preserved ejection fraction Hiatal hernia History of tobacco abuse Obstructive sleep apnea Obstructive sleep apnea Paroxysmal atrial fibrillation Surgical History Surgical History History of bladder repair surgery History of breast surgery History of cataract extraction History of cholecystectomy History of colonoscopy History of esophagogastroduodenoscopy History of foot surgery History of fusion of cervical spine History of hernia repair History of hysterectomy History of spinal surgery History of tonsillectomy Family History Family History Father Bladder cancer Mother Hypertension Depression Sibling Asthma Hypertension Depression Grandparent Hypertension Heart disease Cerebrovascular accident Grandparent Alcoholism Lung cancer Social History Social History Social History: Surrogate medical decision maker: Tyrone Bullard, son. Code status: Full code. Smoking packs per day: 1 Smoking cigarettes per day: 20.0 Years smoked: 20 Smoking pack-years: 20.00 Smoking status: Former smoker Tobacco type: cigarettes Second hand tobacco smoke exposure: Yes Alcohol intake: never Drinks per week: 1 Substance use: current Substance use type: marijuana Other substance usage details: THC gummy for sleep on occasion Do You Feel Safe in your Home?: Yes Lack of Transportation: No Lack of Food: Never True Current Housing: I Have Housing Concerned About Future Housing: No Difficulty Paying Gas/Electric Bills: No Difficulty Paying for Meds: No Currently Unemployed: No Education: Bachelor's Degree Difficulty w/ Childcare or Family Care: No Additional living arrangements comments: with 3 children. Lives at [facility]. 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 Spiritual care concerns: No Meds Home Medications and Allergies Home Medications Medication Instructions Recorded Confirmed Type atorvastatin 80 mg tablet 80 mg PO HS 03/04/22 03/10/24 History memantine 5 mg tablet 5 mg PO Q12H 03/04/22 03/10/24 History pramipexole 0.5 mg tablet (Mirapex) 0.5 mg PO HS 03/07/22 01/30/24 History ferrous sulfate 325 mg (65 mg 325 mg PO Q48H 10/01/22 03/10/24 History iron) tablet pregabalin 100 mg capsule 100 mg PO Q12H 10/01/22 01/30/24 History albuterol sulfate 2.5 mg/3 mL 2.5 mg inhalation Q8H PRN Wheezing 10/13/22 03/10/24 History (0.083 %) solution for nebulization cholecalciferol (vitamin D3) 25 25 mcg PO DAILY 10/13/22 03/10/24 History mcg (1,000 unit) capsule (Vitamin D3) citalopram 20 mg tablet 20 mg PO QHS 02/20/23 03/10/24 History fluticasone fur. 100 mcg-umeclid 1 inh inhalation DAILY #28 ea 03/02/23 01/30/24 Rx 62.5 mcg-vilant 25 mcg inhalat.powder (Trelegy Ellipta) pantoprazole 40 mg tablet,delayed 40 mg PO QAM #30 tabs 03/02/23 01/30/24 Rx release guaifenesin 600 mg tablet, 600 mg PO Q12HR PRN Congestion 09/01/23 03/10/24 History extended release 12 hr (Mucus Relief ER) lidocaine 4 % topical patch 1 patch transdermal DAILY PRN Back 09/01/23 03/10/24 History (Lidocaine Pain Relief) Pain aripiprazole 2 mg tablet 2 mg PO DAILY 09/17/23 03/10/24 History bisacodyl 5 mg tablet,delayed 5 mg PO DAILY PRN constipation 09/17/23 03/10/24 History release furosemide 20 mg tablet 20 mg PO DAILY 09/17/23 03/10/24 History polyethylene glycol 3350 17 gram 17 g PO QAM PRN Constipation #30 ea 09/21/23 01/30/24 Rx oral powder packet (Miralax) docusate sodium 100 mg capsule 100 mg PO BID #60 caps 10/01/23 03/10/24 Rx mirtazapine 15 mg tablet (Remeron) 15 mg PO HS #30 tabs 10/01/23 03/10/24 Rx vit C 250 mg-vit E 90 mg-zinc 40 1 tablet PO DAILY 12/05/23 01/30/24 History mg-copper 1 mg-orxers-hamlcg capsule (PreserVision AREDS-2) amlodipine 5 mg tablet (Norvasc) 5 mg PO DAILY #90 tabs 01/06/24 03/10/24 Rx apixaban 5 mg tablet (Eliquis) 5 mg PO BID #60 tabs 01/22/24 03/10/24 Rx nitrofurantoin 100 mg PO DAILY #30 caps 01/22/24 03/10/24 Rx monohydrate/macrocrystals 100 mg capsule (Macrobid) trazodone 50 mg tablet 50 mg PO HS #30 tabs 01/22/24 01/30/24 Rx oxycodone 5 mg tablet 5 mg PO Q4H PRN Pain Rated 4-6 #10 02/09/24 03/10/24 Rx tabs Allergies Allergy/AdvReac Type Severity Reaction Status Date / Time meperidine [From Demerol] Allergy Unknown Unknown Verified 01/30/24 15:17 rofecoxib [From Vioxx] Allergy Unknown Unknown Verified 12/29/23 19:06 zolpidem [From Ambien] Allergy Unknown Unknown Verified 01/30/24 15:17 chlorpromazine AdvReac Unknown Unknown Verified 01/30/24 15:17 [From Thorazine] diphenhydramine AdvReac Unknown Jittery Verified 01/30/24 16:49 [From Benadryl] Vital Signs Vital Signs - 24 hr 03/10/24 12:32 03/10/24 12:35 03/10/24 12:58 Temperature 97.4 F L Pulse Rate 125 H Respiratory Rate 20 Blood Pressure 122/74 Pulse Oximetry 92 93 53 L Oxygen Delivery Nasal Cannula Nasal Cannula Nasal Cannula Oxygen Flow Rate 2 2 4 03/10/24 12:58 03/10/24 13:01 03/10/24 13:07 Temperature Pulse Rate 104 H Respiratory Rate 27 H Blood Pressure 106/59 L Pulse Oximetry 83 L 100 100 Oxygen Delivery Non-Rebreather Mask Non-Rebreather Mask Oxygen Flow Rate 15 15 03/10/24 13:51 03/10/24 13:08 03/10/24 13:45 Temperature Pulse Rate 86 93 95 Respiratory Rate 21 H 21 H 18 Blood Pressure 106/59 L 124/94 H Pulse Oximetry 100 100 98 Oxygen Delivery BiPAP Oxygen Flow Rate 03/10/24 13:30 Temperature Pulse Rate 86 Respiratory Rate 21 H Blood Pressure Pulse Oximetry Oxygen Delivery Oxygen Flow Rate Exam Const: General: comfortable and no acute distress Other: , female, nontoxic appearance HENMT: Face/Nose/Sinus: Normal nares present Mouth: Yes dry mucous membranes Other: BiPAP in place Eyes: General: appearance normal, both eyes and all related structures Sclera: sclerae normal Pupils: Equal, round and reactive pupils present EOM: EOMs intact bilaterally Resp: Effort & Inspection: normal respiratory effort Other: Crackles in left base. No expiratory wheeze. Diminished throughout. Cardio: Rate: regular rate Rhythm: abnormal rhythm Other: S1-S2 present without murmur GI: Other: Abdomen soft, nondistended, nontender. Skin: General skin exam: normal color and no rashes or lesions noted Wounds: no wounds Neuro: Speech: normal speech Motor exam (neuro): 5/5 motor strength present throughout Sensory Exam: normal sensation Other: A&O 4 Extrem: General: normal exam except as noted Other: 1+ pitting edema to BLE, symmetric. Psych: Mental Status: mental status grossly normal Affect: normal affect Other: Good insight and judgment, pleasant H&P: Results Labs Labs: Short CBC 03/10/24 Range/Units 13:01 WBC 8.2 (4.5-10.0) K/mm3 Hgb 10.6 L (12.0-15.0) g/dL Hct 37.4 (37.0-47.0) % Plt Count 156 (150-375) k/mm3 BMP 03/10/24 13:01 Sodium 143 Potassium 3.5 Chloride 92 L Carbon Dioxide > 40 H BUN 18 H Creatinine 0.80 Glucose 116 H Calcium 8.8 Liver Function 03/10/24 Range/Units 13:01 Total Bilirubin 0.8 (0.2-1.3) mg/dL AST 34 (14-36) U/L ALT 19 (6-35) U/L Alkaline Phosphatase 95 (38-126) U/L Albumin 4.2 (3.5-5.1) g/dL Assessment and Plan Assessment and plan (1) Sepsis: Qualifiers: Acute respiratory failure type: with hypercapnia Sepsis acute organ dysfunction status: with acute organ dysfunction Sepsis type: sepsis due to unspecified organism Severe sepsis acute organ dysfunction type: acute respiratory failure Severe sepsis shock status: without septic shock Qualified Code(s): A41.9 - Sepsis, unspecified organism; R65.20 - Severe sepsis without septic shock; J96.02 - Acute respiratory failure with hypercapnia Code(s): A41.9 - Sepsis, unspecified organism Status: Acute Assessment and Plan: - meets SIRS criteria: HR, RR. +hypoxia, -hypoTN - lactic acid: 2.4 -> 1.9 - lactic elevated, procalcitonin added - 30 mL/kg = 2100, hx of HFpEF, will start LR at 100 mL/hr x1L. monitor toleration. - suspected source: Pneumonia - started on Zosyn - blood cultures drawn on 03/10 - CXR and CTA concerning for pneumonia (2) Pneumonia: Qualifiers: Laterality: left Lung location: lower lobe of lung Pneumonia type: due to unspecified organism Qualified Code(s): J18.9 - Pneumonia, unspecified organism Code(s): J18.9 - Pneumonia, unspecified organism Status: Acute Assessment and Plan: - chest CTA: 1. No pulmonary embolism. 2. Consolidation the bilateral lower lobes with associated volume loss and more likely related atelectasis/partial collapse with lower density consolidation with surrounding groundglass opacities in the dependent left upper lobe and lingula which is more suspicious for pneumonia. 3. Mild cardiomegaly with minimal pulmonary edema at the visualized upper lungs and very small left pleural effusion. 4. Large sliding-type hiatal hernia. - risk factors and complicating factors: COPD - started on Zosyn on 03/10 - MRSA PCR negative on of 02/01/2024 - Viral PCR negative - sputum culture, if obtainable - currently requiring BiPAP given significant elevation in CO2, try treat to baseline home O2 requirement is tolerated to maintain sat above 92% - supportive care (3) CO2 retention: Code(s): E87.29 - Other acidosis Status: Acute Assessment and Plan: - ABG, initial: pH 7.331, pCO2 83.8, pO2 132, HCO3 43.3, O2 sat 98.3% - BiPAP in place, repeat ABG this afternoon and admission to IMU in for continuous BiPAP until CO2 elevation resolution/return to baseline - baseline CO2: 53-61 - mentation: A&O 4 (4) COPD (chronic obstructive pulmonary disease): Qualifiers: COPD type: COPD with acute exacerbation Qualified Code(s): J44.1 - Chronic obstructive pulmonary disease with (acute) exacerbation Code(s): J44.9 - Chronic obstructive pulmonary disease, unspecified Status: Acute Assessment and Plan: - acute exacerbation of chronic COPD - DuoNeb p.r.n. - initially given Solu-Medrol, transition to prednisone 40 mg daily x7 days - continue home inhalers (5) Acute and chronic respiratory failure with hypoxia: Code(s): J96.21 - Acute and chronic respiratory failure with hypoxia Status: Acute Assessment and Plan: - baseline O2 requirement: 2L NC - exacerbation secondary to PNA and COPD exacerbation - currently requiring BiPAP given significant elevation in CO2, try treat to baseline home O2 requirement is tolerated to maintain sat above 92% (6) Hypertension: Qualifiers: Hypertension type: primary hypertension Qualified Code(s): I10 - Essential (primary) hypertension Code(s): I10 - Essential (primary) hypertension Status: Chronic Assessment and Plan: - chronic, currently 124/94 - continue home medications: Amlodipine 5 mg - monitor (7) Obstructive sleep apnea: Code(s): G47.33 - Obstructive sleep apnea (adult) (pediatric) Status: Chronic Assessment and Plan: - continue home CPAP Plan Diet: Heart healthy GI Prophylaxis: Not currently indicated DVT Prophylaxis: Continue home Eliquis Lines: peripheral Code Status: DNR Quality VTE Prophylaxis VTE prophylaxis: pharmacologic ordered Hospitalist MIPS Advance Care Plan I have confirmed that the patient's Advanced Care Plan is present, code status is documented, or surrogate decision maker is listed in patient medical record.: Yes Medication Reconciliation I have utilized all available resources to obtain, update and review the patients current medications (includes all prescriptions, OTC, herbals, cannabis, and nutritional supplements).: Yes
[2024-03-10] MEDS: LACTATED RINGERS 1,000 ML 100 ML IV CONT (15:08)
[2024-03-10 15:54] LABS: Procalcitonin 0.1 ng/mL
[2024-03-10 16:05] LABS: Reflex Lactic Acid Yes or No Add Lactic
--- NOTE | 2024-03-10 17:26 | ADMGEN ---
This patient, Jazmin Bullard, was admitted to IMU Room 203-01. Patient/family oriented to hospital policies and general routines including ID bracelet, bed and alarms, visiting hours, pain management, procedures, bathroom and other care routines, personal items, smoking policy, room service/diet, and visiting hours. pt brought up on bipap, fluids running, given warm blanket Information on how to activate the Rapid Response Team has been discussed. Patient/Family are encouraged to report perceived risks to care and to ask questions if they do not understand what they are told or what they should do.
[2024-03-10 17:32] LABS: Alveolar/Arterial O2 Gradient 267.7 mmHg; Base Excess ABG 16.7 mEq/l (+/-2.0); Fractional Inspired Oxygen 60 %; HCO3 ABG 44.9 mEq/l (22.0-26.0); Oxygen Content ABG 14.5 %vol (16.0-22.0); Oxygen Saturation ABG 94.3 % (95.0-100.0); Oxyhemoglobin 94.1 % THb (90.0-100.0); PO2 ABG 75.7 mmHg (80.0-100.0); PO2 FiO2 Ratio Arterial Blood 1.26 %; Total Hemoglobin 10.9 g/dL (12.0-18.0); pH ABG 7.385 (7.350-7.450)
[2024-03-10 17:34] LABS: Modified Allen's Test Pass; PCO2 ABG 76.7 mmHg (35.0-45.0); Site Drawn RIGHT RADIAL
[2024-03-10 17:35] LABS: Device BIPAP; Expiratory Pressure 5 cmH2O; Inspiratory Pressure 10 cmH2O
[2024-03-10 17:51] LABS: Lactic Acid 1.9 mmol/L (0.7-2.0)
[2024-03-10] MEDS: guaiFENesin 12 HR 600 MG TABCR PO (21:18)
[2024-03-10] MEDS: ACETAMINOPHEN 325 MG TABLET 650 MG PO (21:18)
[2024-03-11] VITALS (26 sets, daily range): BP systolic 95–141; BP diastolic 55–84; PULSE 60–94; RESP 11–20; TEMP 36.5–37.1; O2SAT 90–100
[2024-03-11] MEDS: ATORVASTATIN 40 MG TABLET 80 MG PO ×2 (00:32→21:24)
[2024-03-11] MEDS: MEMANTINE 5 MG TABLET PO ×3 (00:32→21:24)
[2024-03-11] MEDS: APIXABAN 5 MG TABLET PO ×3 (00:32→21:23)
[2024-03-11] MEDS: CITALOPRAM HYDROBROMIDE 20 MG TABLET PO ×2 (00:32→21:24)
[2024-03-11] MEDS: DOCUSATE SODIUM 100 MG CAPSULE PO ×3 (00:33→18:11)
[2024-03-11] MEDS: oxyCODONE HCL (*CRX) 5 MG TAB IR PO ×5 (00:33→22:48)
[2024-03-11] MEDS: MIRTAZAPINE 15 MG TABLET PO ×2 (00:33→21:24)
[2024-03-11] MEDS: PIPERACILLIN/TAZ 4.5G/NS 100ML 4.5 GM/100 ML BAG IVPB ×4 (02:41→21:37)
[2024-03-11 05:07] LABS: Basophils Percent Auto 0.2 % (0.2-1.2); Hematocrit 29.8 % (37.0-47.0); Hemoglobin 8.7 g/dL (12.0-15.0); Immature Granulocyte Absolute 0.02 K/mm3 (0.00-0.031); Immature Granulocyte Percent A 0.4 % (0-0.5); Immature Platelet Fraction Pct 4.7 % (0.9-11.2); Lymphocytes Absolute Auto 1.01 K/mm3 (0.9-3.2); Lymphocytes Percent Auto 17.7 % (18.3-44.2); Mean Corpuscular HGB Conc 29.2 g/dl (32-36); Mean Corpuscular Hemoglobin 27.5 pg (26-34); Mean Corpuscular Volume 94.3 fl (80-100); Mean Platelet Volume 10.6 fl (7.4-10.4); Monocytes Absolute Auto 0.4 K/mm3 (0.1-0.6); Neutrophils Absolute Auto 4.3 K/mm3 (1.3-6.7); Neutrophils Percent Auto 74.7 % (45.5-73.1); Platelet Count Result 138 k/mm3 (150-375); Red Blood Count 3.16 M/mm3 (4.2-5.4); Red Cell Distribution Width 14.9 % (11.5-14.5); White Blood Count 5.7 K/mm3 (4.5-10.0)
[2024-03-11 05:17] LABS: Blood Urea Nitrogen 17 mg/dL (7-17); Calcium 7.8 mg/dL (8.4-10.2); Carbon Dioxide > 40 mmol/L (22-30); Chloride 93 mmol/L (98-107); Estimated Glomerular Filt Rate 52; Glucose 100 mg/dL (65-110); Potassium 3.3 mmol/L (3.4-5.0); Sodium 139 mmol/L (137-145)
[2024-03-11] MEDS: guaiFENesin 12 HR 600 MG TABCR PO ×2 (09:01→21:24)
[2024-03-11] MEDS: CHOLECALCIFEROL 1,000 UNITS TABLET 1000 UNITS PO (09:01)
[2024-03-11] MEDS: FUROSEMIDE 20 MG TABLET PO (09:01)
[2024-03-11] MEDS: NITROFURANTOIN MONOHYD MACROCR 100 MG CAP PO (09:01)
[2024-03-11] MEDS: ARIPiprazole 2 MG TABLET PO (09:01)
[2024-03-11] MEDS: amLODIPine BESYLATE 5 MG TABLET PO (09:01)
[2024-03-11] MEDS: predniSONE 20 MG TABLET 40 MG PO (09:04)
[2024-03-11 10:40] LABS: Alveolar/Arterial O2 Gradient 220.2 mmHg; Base Excess ABG 13.4 mEq/l (+/-2.0); Fractional Inspired Oxygen 55 %; HCO3 ABG 40.1 mEq/l (22.0-26.0); Oxygen Content ABG 13.7 %vol (16.0-22.0); Oxygen Saturation ABG 97.4 % (95.0-100.0); Oxyhemoglobin 96.5 % THb (90.0-100.0); PO2 ABG 100.1 mmHg (80.0-100.0); PO2 FiO2 Ratio Arterial Blood 1.82 %; pH ABG 7.411 (7.350-7.450)
[2024-03-11 10:41] LABS: Device NON-INVASIVE VENT; Modified Allen's Test Pass; Non-Invasive Vent Rate 4 /MIN; PCO2 ABG 64.6 mmHg (35.0-45.0); Site Drawn LEFT RADIAL
[2024-03-11 10:42] LABS: Non-Invasive Expiratory Pressure 5 CMH2O; Non-Invasive Inspiratory Pressure 10 CMH2O
--- NOTE | 2024-03-11 13:48 | PM.IMPN ---
Progress Note: A&P Assessment and Plan (1) Sepsis: Qualifiers: Acute respiratory failure type: with hypercapnia Sepsis acute organ dysfunction status: with acute organ dysfunction Sepsis type: sepsis due to unspecified organism Severe sepsis acute organ dysfunction type: acute respiratory failure Severe sepsis shock status: without septic shock Qualified Code(s): A41.9 - Sepsis, unspecified organism; R65.20 - Severe sepsis without septic shock; J96.02 - Acute respiratory failure with hypercapnia Code(s): A41.9 - Sepsis, unspecified organism Status: Acute Assessment and Plan: - meets SIRS criteria: HR, RR. +hypoxia, -hypoTN - lactic acid: 2.4 -> 1.9 - lactic elevated, procalcitonin added - 30 mL/kg = 2100, hx of HFpEF, will start LR at 100 mL/hr x1L. monitor toleration. - suspected source: Pneumonia - started on Zosyn - blood cultures drawn on 03/10 - CXR and CTA concerning for pneumonia (2) Pneumonia: Qualifiers: Laterality: left Lung location: lower lobe of lung Pneumonia type: due to unspecified organism Qualified Code(s): J18.9 - Pneumonia, unspecified organism Code(s): J18.9 - Pneumonia, unspecified organism Status: Acute Assessment and Plan: - chest CTA: 1. No pulmonary embolism. 2. Consolidation the bilateral lower lobes with associated volume loss and more likely related atelectasis/partial collapse with lower density consolidation with surrounding groundglass opacities in the dependent left upper lobe and lingula which is more suspicious for pneumonia. 3. Mild cardiomegaly with minimal pulmonary edema at the visualized upper lungs and very small left pleural effusion. 4. Large sliding-type hiatal hernia. - risk factors and complicating factors: COPD - started on Zosyn on 03/10 - MRSA PCR negative on of 02/01/2024 - Viral PCR negative - sputum culture, if obtainable - currently requiring BiPAP given significant elevation in CO2, try treat to baseline home O2 requirement is tolerated to maintain sat above 92% - supportive care (3) CO2 retention: Code(s): E87.29 - Other acidosis Status: Acute Assessment and Plan: - ABG, initial: pH 7.331, pCO2 83.8, pO2 132, HCO3 43.3, O2 sat 98.3% - BiPAP in place, repeat ABG this afternoon and admission to IMU in for continuous BiPAP until CO2 elevation resolution/return to baseline - baseline CO2: 53-61 - mentation: A&O 4 Repeat ABG with improvement down to 60s pCO2 Chronically on noninvasive ventilation with AVAPS Six not compliant with her Belinda (4) COPD (chronic obstructive pulmonary disease): Qualifiers: COPD type: COPD with acute exacerbation Qualified Code(s): J44.1 - Chronic obstructive pulmonary disease with (acute) exacerbation Code(s): J44.9 - Chronic obstructive pulmonary disease, unspecified Status: Acute Assessment and Plan: - acute exacerbation of chronic COPD - DuoNeb p.r.n. - initially given Solu-Medrol, transition to prednisone 40 mg daily x7 days - continue home inhalers (5) Acute and chronic respiratory failure with hypoxia: Code(s): J96.21 - Acute and chronic respiratory failure with hypoxia Status: Acute Assessment and Plan: - baseline O2 requirement: 2L NC - exacerbation secondary to PNA and COPD exacerbation - currently requiring BiPAP given significant elevation in CO2, try treat to baseline home O2 requirement is tolerated to maintain sat above 92% (6) Hypertension: Qualifiers: Hypertension type: primary hypertension Qualified Code(s): I10 - Essential (primary) hypertension Code(s): I10 - Essential (primary) hypertension Status: Chronic Assessment and Plan: - chronic, currently 124/94 - continue home medications: Amlodipine 5 mg - monitor (7) Obstructive sleep apnea: Code(s): G47.33 - Obstructive sleep apnea (adult) (pediatric) Status: Chronic Assessment and Plan: - continue home CPAP Plan History of PE 12/2023 with small non filling defects in left lower lobe on CTA. On Eliquis repeat CTA 01/30 4- for PE Diet: Heart healthy GI Prophylaxis: Not currently indicated DVT Prophylaxis: Continue home Eliquis Lines: peripheral Code Status: DNR Subjective Date/time seen: 03/11/24 13:48 Interval history: Feeling better. Labs reviewed. On BiPAP. Discussed with nursing staff. Review of Systems Review of Systems: All systems reviewed & are unremarkable except as noted in HPI and below Exam Narrative: GENERAL: Well-appearing, well-nourished, and in no acute distress. HEAD: Normocephalic, atraumatic. EYES: EOMI. ENT: Nares clear, no rhinorrhea or epistaxis. Mucous membranes moist. NECK: Supple. CHEST: Diminished breath sounds bilaterally, Speaking in full sentences. On BiPAP, No labored breathing. HEART: Regular rate and rhythm. No murmur heard. Normal peripheral pulses. ABDOMEN: Soft, nontender, nondistended, normal active bowel sounds. EXTREMITIES: Normal range of motion. 1+ pitting edema to bilateral lower extremities SKIN: Warm, dry, no rash. NEURO: No focal deficits. Alert and oriented x3 Objective Data Vital Signs Vital Signs: Vital Signs - 24 hr 03/10/24 13:51 03/10/24 14:50 03/10/24 14:59 Temperature Pulse Rate 86 86 85 Respiratory Rate 21 H 15 16 Blood Pressure 91/60 L 96/65 L Pulse Oximetry 100 95 93 Oxygen Delivery BiPAP Oxygen Flow Rate Fraction of Inspired Oxygen 03/10/24 15:00 03/10/24 15:30 03/10/24 15:31 Temperature Pulse Rate 87 88 87 Respiratory Rate 15 16 15 Blood Pressure 102/66 106/60 Pulse Oximetry 95 97 97 Oxygen Delivery Oxygen Flow Rate Fraction of Inspired Oxygen 03/10/24 15:45 03/10/24 15:46 03/10/24 16:40 Temperature 98.3 F Pulse Rate 88 88 5 L Respiratory Rate 16 18 20 Blood Pressure 93/54 L 122/66 Pulse Oximetry 96 96 96 Oxygen Delivery Oxygen Flow Rate Fraction of Inspired Oxygen 03/10/24 18:00 03/10/24 19:35 03/10/24 20:20 Temperature 98.2 F Pulse Rate 88 81 79 Respiratory Rate 14 12 Blood Pressure 101/60 Pulse Oximetry 98 97 Oxygen Delivery BiPAP Oxygen Flow Rate Fraction of Inspired Oxygen 03/10/24 23:50 03/10/24 20:20 03/11/24 00:00 Temperature 98.9 F Pulse Rate 69 81 69 Respiratory Rate 14 14 14 Blood Pressure 105/70 Pulse Oximetry 96 98 96 Oxygen Delivery BiPAP BiPAP Oxygen Flow Rate Fraction of Inspired Oxygen 50 50 03/11/24 02:32 03/10/24 20:00 03/10/24 22:00 Temperature Pulse Rate 66 82 86 Respiratory Rate 15 Blood Pressure Pulse Oximetry 97 Oxygen Delivery BiPAP Oxygen Flow Rate Fraction of Inspired Oxygen 03/11/24 00:00 03/11/24 02:00 03/11/24 04:00 Temperature 98.0 F Pulse Rate 77 66 65 Respiratory Rate 18 Blood Pressure 95/55 L Pulse Oximetry 95 Oxygen Delivery Oxygen Flow Rate Fraction of Inspired Oxygen 03/11/24 04:00 03/11/24 04:00 03/11/24 05:52 Temperature Pulse Rate 65 64 60 Respiratory Rate 18 Blood Pressure Pulse Oximetry 95 Oxygen Delivery BiPAP Oxygen Flow Rate Fraction of Inspired Oxygen 50 03/11/24 07:24 03/11/24 07:45 03/11/24 10:30 Temperature 97.8 F Pulse Rate 70 78 89 Respiratory Rate 11 L 14 18 Blood Pressure 112/80 Pulse Oximetry 93 95 95 Oxygen Delivery BiPAP BiPAP Oxygen Flow Rate Fraction of Inspired Oxygen 03/11/24 08:00 03/11/24 11:35 03/11/24 13:46 Temperature 98.7 F Pulse Rate 80 Respiratory Rate 20 Blood Pressure 111/68 Pulse Oximetry 95 95 90 Oxygen Delivery BiPAP High Flow Nasal Cannula Oxygen Flow Rate 8 Fraction of Inspired Oxygen 50 Intake/Output Intake/Output: Intake & Output 03/08/24 03/09/24 03/10/24 03/11/24 23:59 23:59 23:59 23:59 Intake Total 200 1935 Output Total 0 175 Balance 200 1760 Meds/Results Medications: Active Medications Generic Name Dose Route Start Last Admin Trade Name Freq PRN Reason Stop Dose Admin Acetaminophen 650 mg 03/10/24 14:24 03/10/24 21:18 Acetaminophen 325 Mg Tablet PO 650 mg Q6H PRN Administration Mild Pain (1-3) or Fever Albuterol 2.5 mg 03/10/24 23:17 Albuterol Sulfate Neb 2.5 Mg/3 Ml Inh INHALATION Q8H PRN Wheezing Albuterol/Ipratropium 3 ml 03/10/24 14:24 Ipratropium 0.5 Mg/Albuterol Sulfate 2.5 Mg Ampul.Neb 3 Ml INHALATION Q6HRT PRN Shortness Of Breath Or Wheezing Amlodipine Besylate 5 mg 03/11/24 09:00 03/11/24 09:01 Amlodipine Besylate 5 Mg Tablet PO 5 mg DAILY MASTER Administration Apixaban 5 mg 03/10/24 23:25 03/11/24 09:01 Apixaban 5 Mg Tablet PO 5 mg Q12HR MASTER Administration Aripiprazole 2 mg 03/11/24 09:00 03/11/24 09:01 Aripiprazole 2 Mg Tablet PO 2 mg DAILY [facility] Administration Atorvastatin Calcium 80 mg 03/10/24 23:25 03/11/24 00:32 Atorvastatin 40 Mg Tablet PO 80 mg HS [facility] Administration Benzonatate 100 mg 03/10/24 14:24 Benzonatate 100 Mg Capsule PO TID PRN Cough Bisacodyl 5 mg 03/10/24 23:17 Bisacodyl 5 Mg Tablet Ec PO DAILY PRN constipation Citalopram Hydrobromide 20 mg 03/10/24 23:25 03/11/24 00:32 Citalopram Hydrobromide 20 Mg Tablet PO 20 mg QHS [facility] Administration Docusate Sodium 100 mg 03/10/24 23:25 03/11/24 09:01 Docusate Sodium 100 Mg Capsule PO 100 mg BID [facility] Administration Ferrous Sulfate 325 mg 03/12/24 09:00 Ferrous Sulfate [address] PO Q48H [facility] Furosemide 20 mg 03/11/24 09:00 03/11/24 09:01 Furosemide 20 Mg Tablet PO 20 mg DAILY [facility] Administration Guaifenesin 600 mg 03/10/24 21:00 03/11/24 09:01 Guaifenesin 12 Hr 600 Mg Tabcr PO 600 mg Q12HR [facility] Administration Guaifenesin 600 mg 03/10/24 23:17 Guaifenesin 12 Hr 600 Mg Tabcr PO Q12HR PRN Congestion Piperacillin Sod/Tazobactam Sod 4.5 gm in 100 mls @ 200 mls/hr 03/11/24 03:00 03/11/24 09:01 Zosyn 4.5 Gm/Ns 100 Ml IVPB 200 mls/hr Q6H [facility] Administration Lidocaine 1 patch 03/10/24 23:17 Lidocaine 5% Patch TOPICAL DAILY PRN Back Pain Memantine 5 mg 03/10/24 23:20 03/11/24 09:01 Memantine 5 Mg Tablet PO 5 mg Q12HR [facility] Administration Mirtazapine 15 mg 03/10/24 23:30 03/11/24 00:33 Mirtazapine 15 Mg Tablet PO 15 mg HS [facility] Administration Nitrofurantoin Macrocrystals 100 mg 03/11/24 09:00 03/11/24 09:01 Nitrofurantoin Monohyd Macrocr 100 Mg Cap PO 100 mg DAILY [facility] Administration Oxycodone HCl 5 mg 03/10/24 23:17 03/11/24 13:15 Oxycodone Hcl (*Crx) 5 Mg Tab Ir PO 5 mg Q4H PRN Administration Pain Rated 4-6 Prednisone 40 mg 03/11/24 08:00 03/11/24 09:04 Prednisone 20 Mg Tablet PO 03/16/24 07:59 40 mg DAILY@0800 MASTER Administration Vitamin D 1,000 units 03/11/24 09:00 03/11/24 09:01 Cholecalciferol 1,000 Units Tablet PO 1,000 units DAILY MASTER Administration Radiology Results: ITS Impressions Chest CTA 03/10/24 13:46 IMPRESSION: 1. No pulmonary embolism. 2. Consolidation the bilateral lower lobes with associated volume loss and more likely related atelectasis/partial collapse with lower density consolidation with surrounding groundglass opacities in the dependent left upper lobe and lingula which is more suspicious for pneumonia. 3. Mild cardiomegaly with minimal pulmonary edema at the visualized upper lungs and very small left pleural effusion. 4. Large sliding-type hiatal hernia. Chest X-Ray 03/10/24 14:07 IMPRESSION: Left basilar pneumonia. Changes increased compared to previous study. Minimal right basal atelectasis versus pneumonia. Labs Labs: Laboratory Results - last 24 hr 03/10/24 03/10/24 03/10/24 13:01 17:27 17:32 WBC RBC Hgb Hct MCV MCH MCHC RDW Plt Count MPV Immature Gran % (Auto) Neut % (Auto) Lymph % (Auto) [place] % (Auto) Eos % (Auto) Baso % (Auto) Lymph # (Auto) [place] # (Auto) Eos # (Auto) Baso # (Auto) Abs Immat Gran (auto) Absolute Neuts (auto) Absolute Nucleated RBC Nucleated RBC % % Immature Plt Fraction Puncture Site Right radial ABG pH 7.385 ABG pCO2 76.7 H* ABG pO2 75.7 L ABG PO2/FiO2 Ratio 1.26 ABG HCO3 44.9 H ABG O2 Saturation 94.3 L ABG O2 Content 14.5 L ABG Base Excess 16.7 A-a Gradient 267.7 Oxyhemoglobin 94.1 Total Hemoglobin 10.9 L O2 Delivery Device Bipap O2 Liters/Min Not Reportable Vent Rate FiO2 60 Expiratory Pressure 5 Inspiratory Pressure 10 Sodium Potassium Chloride Carbon Dioxide Anion Gap BUN Creatinine Estim Creat Clear Calc Estimated GFR Glucose Lactic Acid 1.9 Calcium Procalcitonin 0.1 03/11/24 03/11/24 04:19 10:37 WBC 5.7 RBC 3.16 L Hgb 8.7 L Hct 29.8 L MCV 94.3 MCH 27.5 MCHC 29.2 L RDW 14.9 H Plt Count 138 L MPV 10.6 H Immature Gran % (Auto) 0.4 Neut % (Auto) 74.7 H Lymph % (Auto) 17.7 L [place] % (Auto) 7.0 Eos % (Auto) 0.0 Baso % (Auto) 0.2 Lymph # (Auto) 1.01 [place] # (Auto) 0.4 Eos # (Auto) 0.0 Baso # (Auto) 0.0 Abs Immat Gran (auto) 0.02 Absolute Neuts (auto) 4.3 Absolute Nucleated RBC 0.000 Nucleated RBC % 0.0 % Immature Plt Fraction 4.7 Puncture Site Left radial ABG pH 7.411 ABG pCO2 64.6 H* ABG pO2 100.1 H ABG PO2/FiO2 Ratio 1.82 ABG HCO3 40.1 H ABG O2 Saturation 97.4 ABG O2 Content 13.7 L ABG Base Excess 13.4 A-a Gradient 220.2 Oxyhemoglobin 96.5 Total Hemoglobin 10.0 L O2 Delivery Device Non-invasive vent O2 Liters/Min Not Reportable Vent Rate 4 FiO2 55 Expiratory Pressure 5 Inspiratory Pressure 10 Sodium 139 Potassium 3.3 L Chloride 93 L Carbon Dioxide > 40 H Anion Gap BUN 17 Creatinine 1.00 Estim Creat Clear Calc Not Reportable Estimated GFR 52 L Glucose 100 Lactic Acid Calcium 7.8 L Procalcitonin
[2024-03-11] MEDS: POTASSIUM CHLORIDE 20 MEQ ER TABLET 40 MEQ PO (18:11)
--- NOTE | 2024-03-11 22:46 | ECG_ITS ---
Test Date: 2024-03-11 22:55:59 Measurements Intervals [place] Rate: 64 P: 70 NC: 164 QRS: 23 QRSD: 137 T: -14 QT: 454 QTc: 470 Interpretive Statements SINUS RHYTHM RIGHT BUNDLE BRANCH BLOCK BORDERLINE ST-T WAVE ABNORMALITY- INF/LAT LEADS BASELINE ARTIFACT- I, II, AVR, V4-V5 ABNORMAL ECG Compared to ECG 03/10/2024 12:45:07 HEART RATE HAS DECREASED Electronically Signed On 03-12-2024 06:40:49 FITTING ROOM SUPERVISOR by Cristian Sanchez D.O.
[2024-03-12] VITALS (23 sets, daily range): BP systolic 122–159; BP diastolic 63–86; PULSE 66–95; RESP 14–21; TEMP 36.5–36.9; O2SAT 93–100
[2024-03-12] MEDS: PIPERACILLIN/TAZ 4.5G/NS 100ML 4.5 GM/100 ML BAG IVPB ×4 (02:56→22:01)
[2024-03-12 04:06] LABS: Basophils Percent Auto 0.3 % (0.2-1.2); Eosinophils Percent Auto 0.2 % (0-4.4); Hematocrit 32.1 % (37.0-47.0); Hemoglobin 9.3 g/dL (12.0-15.0); Immature Granulocyte Absolute 0.02 K/mm3 (0.00-0.031); Immature Granulocyte Percent A 0.3 % (0-0.5); Lymphocytes Percent Auto 24.3 % (18.3-44.2); Mean Corpuscular Hemoglobin 26.8 pg (26-34); Mean Corpuscular Volume 92.5 fl (80-100); Mean Platelet Volume 10.1 fl (7.4-10.4); Monocytes Absolute Auto 0.5 K/mm3 (0.1-0.6); Monocytes Percent Auto 8.2 % (2.6-8.5); Neutrophils Absolute Auto 4.4 K/mm3 (1.3-6.7); Neutrophils Percent Auto 66.7 % (45.5-73.1); Platelet Count Result 153 k/mm3 (150-375); Red Blood Count 3.47 M/mm3 (4.2-5.4); Red Cell Distribution Width 15.1 % (11.5-14.5); White Blood Count 6.6 K/mm3 (4.5-10.0)
[2024-03-12 04:53] LABS: Alanine Aminotransferase 15 U/L (6-35); Albumin Level 3.3 g/dL (3.5-5.1); Alkaline Phosphatase 80 U/L (38-126); Aspartate Amino Transferase 33 U/L (14-36); Bilirubin,Total 0.7 mg/dL (0.2-1.3); Blood Urea Nitrogen 18 mg/dL (7-17); Carbon Dioxide > 40 mmol/L (22-30); Chloride 94 mmol/L (98-107); Estimated Glomerular Filt Rate 52; Glucose 106 mg/dL (65-110); Magnesium 2.1 mg/dL (1.6-2.3); Potassium 3.4 mmol/L (3.4-5.0); Sodium 141 mmol/L (137-145)
[2024-03-12] MEDS: predniSONE 20 MG TABLET 40 MG PO (09:11)
[2024-03-12] MEDS: NITROFURANTOIN MONOHYD MACROCR 100 MG CAP PO (09:11)
[2024-03-12] MEDS: FUROSEMIDE 20 MG TABLET PO (09:11)
[2024-03-12] MEDS: DOCUSATE SODIUM 100 MG CAPSULE PO ×2 (09:12→16:56)
[2024-03-12] MEDS: guaiFENesin 12 HR 600 MG TABCR PO ×2 (09:12→21:22)
[2024-03-12] MEDS: MEMANTINE 5 MG TABLET PO ×2 (09:12→21:23)
[2024-03-12] MEDS: FERROUS SULFATE 325 MG TABLET DR PO (09:12)
[2024-03-12] MEDS: APIXABAN 5 MG TABLET PO ×2 (09:12→21:21)
[2024-03-12] MEDS: ARIPiprazole 2 MG TABLET PO (09:12)
[2024-03-12] MEDS: CHOLECALCIFEROL 1,000 UNITS TABLET 1000 UNITS PO (09:12)
[2024-03-12] MEDS: oxyCODONE HCL (*CRX) 5 MG TAB IR PO ×3 (09:24→21:24)
--- NOTE | 2024-03-12 11:33 | PM.IMPN ---
Progress Note: A&P Assessment and Plan (1) Sepsis: Qualifiers: Acute respiratory failure type: with hypercapnia Sepsis acute organ dysfunction status: with acute organ dysfunction Sepsis type: sepsis due to unspecified organism Severe sepsis acute organ dysfunction type: acute respiratory failure Severe sepsis shock status: without septic shock Qualified Code(s): A41.9 - Sepsis, unspecified organism; R65.20 - Severe sepsis without septic shock; J96.02 - Acute respiratory failure with hypercapnia Code(s): A41.9 - Sepsis, unspecified organism Status: Acute Assessment and Plan: - meets SIRS criteria: HR, RR. +hypoxia, -hypoTN - lactic acid: 2.4 -> 1.9 - lactic elevated, procalcitonin added - 30 mL/kg = 2100, hx of HFpEF, will start LR at 100 mL/hr x1L. monitor toleration. - suspected source: Pneumonia - started on Zosyn. Add atypical coverage with doxycycline - blood cultures drawn on 03/10 - CXR and CTA concerning for pneumonia (2) Pneumonia: Qualifiers: Laterality: left Lung location: lower lobe of lung Pneumonia type: due to unspecified organism Qualified Code(s): J18.9 - Pneumonia, unspecified organism Code(s): J18.9 - Pneumonia, unspecified organism Status: Acute Assessment and Plan: - chest CTA: 1. No pulmonary embolism. 2. Consolidation the bilateral lower lobes with associated volume loss and more likely related atelectasis/partial collapse with lower density consolidation with surrounding groundglass opacities in the dependent left upper lobe and lingula which is more suspicious for pneumonia. 3. Mild cardiomegaly with minimal pulmonary edema at the visualized upper lungs and very small left pleural effusion. 4. Large sliding-type hiatal hernia. - risk factors and complicating factors: COPD - started on Zosyn on 03/10 add atypical coverage with doxycycline - MRSA PCR negative on of 02/01/2024 - Viral PCR negative - sputum culture, if obtainable - currently requiring BiPAP given significant elevation in CO2, try treat to baseline home O2 requirement is tolerated to maintain sat above 92% - supportive care (3) CO2 retention: Code(s): E87.29 - Other acidosis Status: Acute Assessment and Plan: - ABG, initial: pH 7.331, pCO2 83.8, pO2 132, HCO3 43.3, O2 sat 98.3% - BiPAP in place, repeat ABG this afternoon and admission to IMU in for continuous BiPAP until CO2 elevation resolution/return to baseline - baseline CO2: 53-61 - mentation: A&O 4 Repeat ABG with improvement down to 60s pCO2 Chronically on noninvasive ventilation with AVAPS She is not compliant with her [facility] her home unit, trial of different mask with RT (4) COPD (chronic obstructive pulmonary disease): Qualifiers: COPD type: COPD with acute exacerbation Qualified Code(s): J44.1 - Chronic obstructive pulmonary disease with (acute) exacerbation Code(s): J44.9 - Chronic obstructive pulmonary disease, unspecified Status: Acute Assessment and Plan: - acute exacerbation of chronic COPD - DuoNeb p.r.n. - initially given Solu-Medrol, transition to prednisone 40 mg daily x7 days - continue home inhalers (5) Acute and chronic respiratory failure with hypoxia: Code(s): J96.21 - Acute and chronic respiratory failure with hypoxia Status: Acute Assessment and Plan: - baseline O2 requirement: 2L NC - exacerbation secondary to PNA and COPD exacerbation - currently requiring BiPAP given significant elevation in CO2, try treat to baseline home O2 requirement is tolerated to maintain sat above 92% (6) Hypertension: Qualifiers: Hypertension type: primary hypertension Qualified Code(s): I10 - Essential (primary) hypertension Code(s): I10 - Essential (primary) hypertension Status: Chronic Assessment and Plan: - chronic, currently 124/94 - continue home medications: Amlodipine 5 mg - monitor (7) Obstructive sleep apnea: Code(s): G47.33 - Obstructive sleep apnea (adult) (pediatric) Status: Chronic Assessment and Plan: - continue home CPAP Plan History of PE 12/2023 with small non filling defects in left lower lobe on CTA. On Eliquis repeat CTA 01/30 4- for PE Diet: Heart healthy GI Prophylaxis: Not currently indicated DVT Prophylaxis: Continue home Eliquis Lines: peripheral Code Status: DNR Subjective Date/time seen: 03/12/24 11:33 Interval history: Used her BiPAP last night. Her home unit is at [facility]. Advised her to bring her unit. She feels claustrophobic with her fullface mask. Review of Systems Review of Systems: All systems reviewed & are unremarkable except as noted in HPI and below Exam Narrative: GENERAL: Well-appearing, well-nourished, and in no acute distress. HEAD: Normocephalic, atraumatic. EYES: EOMI. ENT: Nares clear, no rhinorrhea or epistaxis. Mucous membranes moist. NECK: Supple. CHEST: Diminished breath sounds bilaterally, Speaking in full sentences. On high-flow nasal cannula, No labored breathing. HEART: Regular rate and rhythm. No murmur heard. Normal peripheral pulses. ABDOMEN: Soft, nontender, nondistended, normal active bowel sounds. EXTREMITIES: Normal range of motion. 1+ pitting edema to bilateral lower extremities SKIN: Warm, dry, no rash. NEURO: No focal deficits. Alert and oriented x3 Objective Data Vital Signs Vital Signs: Vital Signs - 24 hr 03/11/24 11:35 03/11/24 13:46 03/11/24 12:00 Temperature 98.7 F Pulse Rate 80 79 Respiratory Rate 20 Blood Pressure 111/68 Pulse Oximetry 95 90 Oxygen Delivery High Flow Nasal Cannula Oxygen Flow Rate 8 Fraction of Inspired Oxygen 03/11/24 14:00 03/11/24 12:00 03/11/24 15:43 Temperature 98.0 F Pulse Rate 90 78 Respiratory Rate 14 Blood Pressure 114/67 Pulse Oximetry 90 93 Oxygen Delivery High Flow Nasal Cannula Oxygen Flow Rate 8 Fraction of Inspired Oxygen 03/11/24 16:00 03/11/24 16:00 03/11/24 18:00 Temperature Pulse Rate 91 94 Respiratory Rate Blood Pressure Pulse Oximetry 90 Oxygen Delivery High Flow Nasal Cannula Oxygen Flow Rate 8 Fraction of Inspired Oxygen 03/11/24 20:11 03/11/24 20:13 03/11/24 20:17 Temperature 97.7 F Pulse Rate 89 89 80 Respiratory Rate 16 16 14 Blood Pressure 141/84 H Pulse Oximetry 95 95 97 Oxygen Delivery BiPAP BiPAP Oxygen Flow Rate Fraction of Inspired Oxygen 55 03/11/24 20:50 03/11/24 23:34 03/11/24 23:36 Temperature 97.8 F Pulse Rate 80 66 82 Respiratory Rate 14 14 16 Blood Pressure 122/72 Pulse Oximetry 97 100 98 Oxygen Delivery BiPAP BiPAP Oxygen Flow Rate Fraction of Inspired Oxygen 55 03/11/24 23:37 03/11/24 20:00 03/11/24 22:00 Temperature Pulse Rate 82 78 63 Respiratory Rate 16 Blood Pressure Pulse Oximetry 98 Oxygen Delivery BiPAP Oxygen Flow Rate Fraction of Inspired Oxygen 55 03/12/24 00:00 03/12/24 01:10 03/12/24 00:30 Temperature Pulse Rate 70 76 66 Respiratory Rate 14 Blood Pressure Pulse Oximetry 93 100 Oxygen Delivery High Flow Nasal Cannula BiPAP Oxygen Flow Rate 8 Fraction of Inspired Oxygen 55 03/12/24 03:48 03/12/24 03:08 03/12/24 01:33 Temperature 97.7 F Pulse Rate 83 83 86 Respiratory Rate 20 20 Blood Pressure 128/78 Pulse Oximetry 96 96 Oxygen Delivery BiPAP Oxygen Flow Rate Fraction of Inspired Oxygen 55 03/12/24 04:00 03/12/24 06:00 03/12/24 08:00 Temperature 98.2 F Pulse Rate 70 71 95 Respiratory Rate 19 Blood Pressure 122/75 Pulse Oximetry 97 Oxygen Delivery Oxygen Flow Rate Fraction of Inspired Oxygen Intake/Output Intake/Output: Intake & Output 03/09/24 03/10/24 03/11/24 03/12/24 23:59 23:59 23:59 23:59 Intake Total 200 3025 100 Output Total 0 1325 400 Balance 200 1700 -300 Meds/Results Medications: Active Medications Generic Name Dose Route Start Last Admin Trade Name Freq PRN Reason Stop Dose Admin Acetaminophen 650 mg 03/10/24 14:24 03/10/24 21:18 Acetaminophen 325 Mg Tablet PO 650 mg Q6H PRN Administration Mild Pain (1-3) or Fever Albuterol 2.5 mg 03/10/24 23:17 Albuterol Sulfate Neb 2.5 Mg/3 Ml Inh INHALATION Q8H PRN Wheezing Albuterol/Ipratropium 3 ml 03/10/24 14:24 Ipratropium 0.5 Mg/Albuterol Sulfate 2.5 Mg Ampul.Neb 3 Ml INHALATION Q6HRT PRN Shortness Of Breath Or Wheezing Amlodipine Besylate 5 mg 03/11/24 09:00 03/12/24 09:19 Amlodipine Besylate 5 Mg Tablet PO Not Given DAILY MASTER Apixaban 5 mg 03/10/24 23:25 03/12/24 09:12 Apixaban 5 Mg Tablet PO 5 mg Q12HR MASTER Administration Aripiprazole 2 mg 03/11/24 09:00 03/12/24 09:12 Aripiprazole 2 Mg Tablet PO 2 mg DAILY MASTER Administration Atorvastatin Calcium 80 mg 03/10/24 23:25 03/11/24 21:24 Atorvastatin 40 Mg Tablet PO 80 mg HS MASTER Administration Benzonatate 100 mg 03/10/24 14:24 Benzonatate 100 Mg Capsule PO TID PRN Cough Bisacodyl 5 mg 03/10/24 23:17 Bisacodyl 5 Mg Tablet Ec PO DAILY PRN constipation Citalopram Hydrobromide 20 mg 03/10/24 23:25 03/11/24 21:24 Citalopram Hydrobromide 20 Mg Tablet PO 20 mg QHS MASTER Administration Docusate Sodium 100 mg 03/10/24 23:25 03/12/24 09:12 Docusate Sodium 100 Mg Capsule PO 100 mg BID MASTER Administration Ferrous Sulfate 325 mg 03/12/24 09:00 03/12/24 09:12 Ferrous Sulfate [address] PO 325 mg Q48H MASTER Administration Furosemide 20 mg 03/11/24 09:00 03/12/24 09:11 Furosemide 20 Mg Tablet PO 20 mg DAILY [facility] Administration Guaifenesin 600 mg 03/10/24 21:00 03/12/24 09:12 Guaifenesin 12 Hr 600 Mg Tabcr PO 600 mg Q12HR MASTER Administration Guaifenesin 600 mg 03/10/24 23:17 Guaifenesin 12 Hr 600 Mg Tabcr PO Q12HR PRN Congestion Piperacillin Sod/Tazobactam Sod 4.5 gm in 100 mls @ 200 mls/hr 03/11/24 03:00 03/12/24 09:13 Zosyn 4.5 Gm/Ns 100 Ml IVPB 200 mls/hr Q6H [facility] Administration Lidocaine 1 patch 03/10/24 23:17 Lidocaine 5% Patch TOPICAL DAILY PRN Back Pain Memantine 5 mg 03/10/24 23:20 03/12/24 09:12 Memantine 5 Mg Tablet PO 5 mg Q12HR MASTER Administration Mirtazapine 15 mg 03/10/24 23:30 03/11/24 21:24 Mirtazapine 15 Mg Tablet PO 15 mg HS [facility] Administration Nitrofurantoin Macrocrystals 100 mg 03/11/24 09:00 03/12/24 09:11 Nitrofurantoin Monohyd Macrocr 100 Mg Cap PO 100 mg DAILY [facility] Administration Oxycodone HCl 5 mg 03/10/24 23:17 03/12/24 09:24 Oxycodone Hcl (*Crx) 5 Mg Tab Ir PO 5 mg Q4H PRN Administration Pain Rated 4-6 Prednisone 40 mg 03/11/24 08:00 03/12/24 09:11 Prednisone 20 Mg Tablet PO 03/16/24 07:59 40 mg DAILY@0800 MASTER Administration Vitamin D 1,000 units 03/11/24 09:00 03/12/24 09:12 Cholecalciferol 1,000 Units Tablet PO 1,000 units DAILY MASTER Administration Radiology Results: ITS Impressions Chest CTA 03/10/24 13:46 IMPRESSION: 1. No pulmonary embolism. 2. Consolidation the bilateral lower lobes with associated volume loss and more likely related atelectasis/partial collapse with lower density consolidation with surrounding groundglass opacities in the dependent left upper lobe and lingula which is more suspicious for pneumonia. 3. Mild cardiomegaly with minimal pulmonary edema at the visualized upper lungs and very small left pleural effusion. 4. Large sliding-type hiatal hernia. Chest X-Ray 03/10/24 14:07 IMPRESSION: Left basilar pneumonia. Changes increased compared to previous study. Minimal right basal atelectasis versus pneumonia. Labs Labs: Laboratory Results - last 24 hr 03/12/24 03:49 WBC 6.6 RBC 3.47 L Hgb 9.3 L Hct 32.1 L MCV 92.5 MCH 26.8 MCHC 29.0 L RDW 15.1 H Plt Count 153 MPV 10.1 Immature Gran % (Auto) 0.3 Neut % (Auto) 66.7 Lymph % (Auto) 24.3 [place] % (Auto) 8.2 Eos % (Auto) 0.2 Baso % (Auto) 0.3 Lymph # (Auto) 1.60 [place] # (Auto) 0.5 Eos # (Auto) 0.0 Baso # (Auto) 0.0 Abs Immat Gran (auto) 0.02 Absolute Neuts (auto) 4.4 Absolute Nucleated RBC 0.000 Nucleated RBC % 0.0 Sodium 141 Potassium 3.4 Chloride 94 L Carbon Dioxide > 40 H Anion Gap BUN 18 H Creatinine 1.00 Estim Creat Clear Calc Not Reportable Estimated GFR 52 L Glucose 106 Calcium 8.0 L Magnesium 2.1 Total Bilirubin 0.7 AST 33 ALT 15 Alkaline Phosphatase 80 Total Protein 6.0 L Albumin 3.3 L
[2024-03-12] MEDS: DOXYCYCLINE 100 MG/NS 100 ML 100 MG/100 ML BAG IVPB ×2 (12:15→23:45)
[2024-03-12] MEDS: ARTIFICIAL TEARS OPHTH SOLN 15 ML BOTTLE 1 DROP EACH EYE ×2 (18:33→21:26)
[2024-03-12] MEDS: ATORVASTATIN 40 MG TABLET 80 MG PO (21:21)
[2024-03-12] MEDS: CITALOPRAM HYDROBROMIDE 20 MG TABLET PO (21:21)
[2024-03-12] MEDS: MELATONIN 5 MG TABLET PO (21:22)
[2024-03-12] MEDS: MIRTAZAPINE 15 MG TABLET PO (21:23)
[2024-03-13] VITALS (17 sets, daily range): BP systolic 124–146; BP diastolic 68–84; PULSE 55–86; RESP 13–24; TEMP 36.7–37.1; O2SAT 93–99
[2024-03-13] MEDS: oxyCODONE HCL (*CRX) 5 MG TAB IR PO ×3 (01:55→21:26)
[2024-03-13] MEDS: PIPERACILLIN/TAZ 4.5G/NS 100ML 4.5 GM/100 ML BAG IVPB ×4 (04:20→21:24)
[2024-03-13 04:22] LABS: Basophils Percent Auto 0.3 % (0.2-1.2); Eosinophils Percent Auto 0.3 % (0-4.4); Hematocrit 33.2 % (37.0-47.0); Hemoglobin 9.4 g/dL (12.0-15.0); Immature Granulocyte Absolute 0.01 K/mm3 (0.00-0.031); Immature Granulocyte Percent A 0.1 % (0-0.5); Lymphocytes Absolute Auto 1.86 K/mm3 (0.9-3.2); Lymphocytes Percent Auto 26.2 % (18.3-44.2); Mean Corpuscular HGB Conc 28.3 g/dl (32-36); Mean Corpuscular Hemoglobin 26.6 pg (26-34); Mean Corpuscular Volume 93.8 fl (80-100); Mean Platelet Volume 10.1 fl (7.4-10.4); Monocytes Absolute Auto 0.6 K/mm3 (0.1-0.6); Monocytes Percent Auto 7.9 % (2.6-8.5); Neutrophils Absolute Auto 4.6 K/mm3 (1.3-6.7); Neutrophils Percent Auto 65.2 % (45.5-73.1); Platelet Count Result 170 k/mm3 (150-375); Red Blood Count 3.54 M/mm3 (4.2-5.4); Red Cell Distribution Width 14.6 % (11.5-14.5); White Blood Count 7.1 K/mm3 (4.5-10.0)
[2024-03-13 04:36] LABS: Alanine Aminotransferase 19 U/L (6-35); Albumin Level 3.3 g/dL (3.5-5.1); Alkaline Phosphatase 70 U/L (38-126); Aspartate Amino Transferase 38 U/L (14-36); Bilirubin,Total 0.6 mg/dL (0.2-1.3); Blood Urea Nitrogen 17 mg/dL (7-17); Calcium 7.8 mg/dL (8.4-10.2); Carbon Dioxide > 40 mmol/L (22-30); Chloride 97 mmol/L (98-107); Estimated Glomerular Filt Rate 52; Glucose 96 mg/dL (65-110); Potassium 3.2 mmol/L (3.4-5.0); Sodium 140 mmol/L (137-145)
[2024-03-13 04:52] LABS: Platelet Estimate Adequate (Adequate)
[2024-03-13 04:53] LABS: Anisocytosis 1+; Hypochromasia 1+; Schistocytes None Seen
[2024-03-13 07:51] LABS: Alveolar/Arterial O2 Gradient 209.3 mmHg; Base Excess ABG 12.6 mEq/l (+/-2.0); Fractional Inspired Oxygen 50 %; HCO3 ABG 39.7 mEq/l (22.0-26.0); Oxygen Content ABG 14.2 %vol (16.0-22.0); Oxygen Saturation ABG 94.2 % (95.0-100.0); Oxyhemoglobin 93.9 % THb (90.0-100.0); PO2 ABG 73.2 mmHg (80.0-100.0); PO2 FiO2 Ratio Arterial Blood 1.46 %; Total Hemoglobin 10.7 g/dL (12.0-18.0); pH ABG 7.398 (7.350-7.450)
[2024-03-13 07:56] LABS: Device HIGH FLOW NASAL CANN; Modified Allen's Test Pass; PCO2 ABG 65.8 mmHg (35.0-45.0); Site Drawn LEFT RADIAL
[2024-03-13] MEDS: APIXABAN 5 MG TABLET PO ×2 (08:31→21:25)
[2024-03-13] MEDS: ARIPiprazole 2 MG TABLET PO (08:31)
[2024-03-13] MEDS: MEMANTINE 5 MG TABLET PO ×2 (08:31→21:25)
[2024-03-13] MEDS: amLODIPine BESYLATE 5 MG TABLET PO (08:31)
[2024-03-13] MEDS: ONDANSETRON HCL ODT 4 MG TABLET PO (08:31)
[2024-03-13] MEDS: CHOLECALCIFEROL 1,000 UNITS TABLET 1000 UNITS PO (08:32)
[2024-03-13] MEDS: predniSONE 20 MG TABLET 40 MG PO (08:32)
[2024-03-13] MEDS: FUROSEMIDE 20 MG TABLET PO (08:32)
[2024-03-13] MEDS: POTASSIUM CHLORIDE 20 MEQ ER TABLET 40 MEQ PO (08:40)
[2024-03-13] MEDS: guaiFENesin 12 HR 600 MG TABCR PO ×2 (08:41→21:25)
[2024-03-13] MEDS: DOXYCYCLINE 100 MG/NS 100 ML 100 MG/100 ML BAG 25 MG IVPB (11:54)
--- NOTE | 2024-03-13 13:01 | P.PNIM_ITS ---
Progress Note: A&P Assessment and Plan (1) Sepsis: Qualifiers: Acute respiratory failure type: with hypercapnia Sepsis acute organ dysfunction status: with acute organ dysfunction Sepsis type: sepsis due to uns pecified organism Severe sepsis acute organ dysfunction type: acute respiratory failure Severe sepsis shock status: without septic shock Qualified Code(s): A41.9 - Sepsis, unspecified organism; R65.20 - Severe sepsis without septic shock; J96.02 - Acute respiratory failure with hypercapnia Code(s): A41.9 - Sepsis, unspecified organism Status: Acute Assessment and Plan: - meets SIRS criteria: HR, RR. +hypoxia, -hypoTN - lactic acid: 2.4 -> 1.9 - lactic elevated, procalcitonin added - 30 mL/kg = 2100, hx of HFpEF, will start LR at 100 mL/hr x1L. monitor toleration. - suspected source: Pneumonia - started on Zosyn. Added atypical coverage with doxycycline - blood cultures drawn on 03/10 - CXR and CTA concerning for pneumonia (2) Pneumonia: Qualifiers: Laterality: left Lung location: lower lobe of lung Pneumonia type: due to unspecified organism Qualified Code(s): J18.9 - Pneumonia, unspecified organism Code(s): J18.9 - Pneumonia, unspecified organism Status: Acute Assessment and Plan: - chest CTA: 1. No pulmonary embolism. 2. Consolidation the bilateral lower lobes with associated volume loss and more likely related atelectasis/partial collapse with lower density consolidation with surrounding groundglass opacities in the dependent left upper lobe and lingula which is more suspicious for pneumonia. 3. Mild cardiomegaly with minimal pulmonary edema at the visualized upper lungs and very small left pleural effusion. 4. Large sliding-type hiatal hernia. - risk factors and complicating factors: COPD - started on Zosyn on 03/10 add atypical coverage with doxycycline - MRSA PCR negative on of 02/01/2024 - Viral PCR negative - sputum culture, if obtainable - currently requiring BiPAP given significant elevation in CO2, try treat to baseline home O2 requirement is tolerated to maintain sat above 92% - supportive care Placed on AVAPS mode CP brought her own unit (3) CO2 retention: Code(s): E87.29 - Other acidosis Status: Acute Assessment and Plan: - ABG, initial: pH 7.331, pCO2 83.8, pO2 132, HCO3 43.3, O2 sat 98.3% - BiPAP in place, repeat ABG this afternoon and admission to IMU in for continuous BiPAP until CO2 elevation resolution/return to baseline - baseline CO2: 53-61 - mentation: A&O 4 Repeat ABG with improvement down to 60s pCO2 Chronically on noninvasive ventilation with AVAPS She is not compliant with her Belinda She brought her own unit and will place on that unit (4) COPD (chronic obstructive pulmonary disease): Qualifiers: COPD type: COPD with acute exacerbation Qualified Code(s): J44.1 - Chronic obstructive pulmonary disease with (acute) exacerbation Code(s): J44.9 - Chronic obstructive pulmonary disease, unspecified Status: Acute Assessment and Plan: - acute exacerbation of chronic COPD - DuoNeb p.r.n. - initially given Solu-Medrol, transition to prednisone 40 mg daily x7 days - continue home inhalers (5) Acute and chronic respiratory failure with hypoxia: Code(s): J96.21 - Acute and chronic respiratory failure with hypoxia Status: Acute Assessment and Plan: - baseline O2 requirement: 2L NC - exacerbation secondary to PNA and COPD exacerbation - currently requiring BiPAP given significant elevation in CO2, try treat to baseline home O2 requirement is tolerated to maintain sat above 92% (6) Hypertension: Qualifiers: Hypertension type: primary hypertension Qualified Code(s): I10 - Essential (primary) hypertension Code(s): I10 - Essential (primary) hypertension Status: Chronic Assessment and Plan: - chronic, currently 124/94 - continue home medications: Amlodipine 5 mg - monitor (7) Obstructive sleep apnea: Code(s): G47.33 - Obstructive sleep apnea (adult) (pediatric) Status: Chronic Assessment and Plan: - continue home CPAP Plan History of PE 12/2023 with small non filling defects in left lower lobe on CTA. On Eliquis repeat CTA 01/30 4- for PE Diet: Heart healthy GI Prophylaxis: Not currently indicated DVT Prophylaxis: Continue home Eliquis Lines: peripheral Code Status: DNR Subjective Date/time seen: 03/13/24 13:01 Interval history: No overnight events. Use BiPAP AVAPS more last night. She was off BiPAP whole day yesterday. Oxygen requirement lowered. Review of Systems Review of Systems: All systems reviewed & are unremarkable except as noted in HPI and below Exam Narrative: GENERAL: Well-appearing, well-nourished, and in no acute distress. HEAD: Normocephalic, atraumatic. EYES: EOMI. ENT: Nares clear, no rhinorrhea or epistaxis. Mucous membranes moist. NECK: Supple. CHEST: Diminished breath sounds bilaterally, Speaking in full sentences. On high-flow nasal cannula, No labored breathing. HEART: Regular rate and rhythm. No murmur heard. Normal peripheral pulses. ABDOMEN: Soft, nontender, nondistended, normal active bowel sounds. EXTREMITIES: Normal range of motion. 1+ pitting edema to bilateral lower extremities SKIN: Warm, dry, no rash. NEURO: No focal deficits. Alert and oriented x3 Objective Data Vital Signs Vital Signs: Vital Signs - 24 hr 03/12/24 13:19 03/12/24 14:00 03/12/24 16:00 Temperature Pulse Rate 74 73 Respiratory Rate Blood Pressure Pulse Oximetry 96 97 Oxygen Delivery High Flow Nasal Cannula Nasal Cannula Oxygen Flow Rate 8 8 Fraction of Inspired Oxygen 03/12/24 16:00 03/12/24 18:00 03/12/24 16:00 Temperature 98.4 F Pulse Rate 80 82 79 Respiratory Rate 16 Blood Pressure 159/80 H Pulse Oximetry 97 Oxygen Delivery Oxygen Flow Rate Fraction of Inspired Oxygen 03/12/24 20:21 03/12/24 20:50 03/12/24 23:53 Temperature 98.1 F 98.0 F Pulse Rate 72 72 79 Respiratory Rate 16 16 16 Blood Pressure 151/77 H 123/63 Pulse Oximetry 98 98 94 Oxygen Delivery High Flow Nasal Cannula Oxygen Flow Rate 8 Fraction of Inspired Oxygen 03/12/24 20:00 03/12/24 22:00 03/12/24 23:40 Temperature Pulse Rate 76 72 79 Respiratory Rate 16 Blood Pressure Pulse Oximetry 94 Oxygen Delivery BiPAP Oxygen Flow Rate Fraction of Inspired Oxygen 70 03/13/24 00:00 03/13/24 02:00 03/13/24 04:10 Temperature 98.0 F Pulse Rate 75 73 70 Respiratory Rate 16 Blood Pressure 132/77 Pulse Oximetry 94 Oxygen Delivery Oxygen Flow Rate Fraction of Inspired Oxygen 03/13/24 04:00 03/13/24 04:00 03/13/24 05:26 Temperature Pulse Rate 70 66 80 Respiratory Rate 16 Blood Pressure Pulse Oximetry 94 Oxygen Delivery BiPAP Oxygen Flow Rate Fraction of Inspired Oxygen 70 11/30/24 22:50 03/13/24 02:15 03/13/24 08:00 Temperature 98.0 F Pulse Rate 72 78 72 Respiratory Rate 21 H 18 24 H Blood Pressure 146/84 H Pulse Oximetry 94 94 97 Oxygen Delivery BiPAP BiPAP Oxygen Flow Rate Fraction of Inspired Oxygen 03/13/24 07:40 03/13/24 08:00 03/13/24 10:00 Temperature Pulse Rate 78 84 83 Respiratory Rate Blood Pressure Pulse Oximetry 96 Oxygen Delivery High Flow Nasal Cannula Oxygen Flow Rate 7 Fraction of Inspired Oxygen 03/13/24 12:00 Temperature 98.2 F Pulse Rate 84 Respiratory Rate 20 Blood Pressure 139/84 Pulse Oximetry 93 Oxygen Delivery Oxygen Flow Rate Fraction of Inspired Oxygen Intake/Output Intake/Output: Intake & Output 03/10/24 03/11/24 03/12/24 03/13/24 23:59 23:59 23:59 23:59 Intake Total 200 3025 1500 670 Output Total 0 1325 1550 Balance 200 1700 -50 670 Meds/Results Medications: Active Medications Generic Name Dose Route Start Last Admin Trade Name Freq PRN Reason Stop Dose Admin Acetaminophen 650 mg 03/10/24 14:24 03/10/24 21:18 Acetaminophen 325 Mg Tablet PO 650 mg Q6H PRN Administration Mild Pain (1-3) or Fever Albuterol 2.5 mg 03/10/24 23:17 Albuterol Sulfate Neb 2.5 Mg/3 Ml Inh INHALATION Q8H PRN Wheezing Albuterol/Ipratropium 3 ml 03/10/24 14:24 Ipratropium 0.5 Mg/Albuterol Sulfate 2.5 Mg Ampul.Neb 3 Ml INHALATION Q6HRT PRN Shortness Of Breath Or Wheezing Amlodipine Besylate 5 mg 03/11/24 09:00 03/13/24 08:31 Amlodipine Besylate 5 Mg Tablet PO 5 mg DAILY MASTER Administration Apixaban 5 mg 03/10/24 23:25 03/13/24 08:31 Apixaban 5 Mg Tablet PO 5 mg Q12HR MASTER Administration Aripiprazole 2 mg 03/11/24 09:00 03/13/24 08:31 Aripiprazole 2 Mg Tablet PO 2 mg DAILY MASTER Administration Artificial Tears 1 drop 03/12/24 18:19 03/12/24 21:26 Artificial Tears Ophth Soln 15 Ml Bottle EACH EYE 1 drop QID PRN Administration Dry Eye(s) Atorvastatin Calcium 80 mg 03/10/24 23:25 03/12/24 21:21 Atorvastatin 40 Mg Tablet PO 80 mg HS MASTER Administration Benzonatate 100 mg 03/10/24 14:24 Benzonatate 100 Mg Capsule PO TID PRN Cough Bisacodyl 5 mg 03/10/24 23:17 Bisacodyl 5 Mg Tablet Ec PO DAILY PRN constipation Citalopram Hydrobromide 20 mg 03/10/24 23:25 03/12/24 21:21 Citalopram Hydrobromide 20 Mg Tablet PO 20 mg QHS MASTER Administration Docusate Sodium 100 mg 03/10/24 23:25 03/13/24 13:00 Docusate Sodium 100 Mg Capsule PO Not Given BID [facility] Ferrous Sulfate 325 mg 03/12/24 09:00 03/12/24 09:12 Ferrous Sulfate [address] PO 325 mg Q48H MASTER Administration Furosemide 20 mg 03/11/24 09:00 03/13/24 08:32 Furosemide 20 Mg Tablet PO 20 mg DAILY [facility] Administration Guaifenesin 600 mg 03/10/24 21:00 03/13/24 08:41 Guaifenesin 12 Hr 600 Mg Tabcr PO 600 mg Q12HR MASTER Administration Guaifenesin 600 mg 03/10/24 23:17 Guaifenesin 12 Hr 600 Mg Tabcr PO Q12HR PRN Congestion Piperacillin Sod/Tazobactam Sod 4.5 gm in 100 mls @ 200 mls/hr 03/11/24 03:00 03/13/24 08:33 Zosyn 4.5 Gm/Ns 100 Ml IVPB 200 mls/hr Q6H MASTER Administration Doxycycline Hyclate 100 mg in 100 mls @ 100 mls/hr 03/12/24 11:40 03/13/24 11:54 Vibramycin 100 Mg/Ns 100 Ml IVPB 25 mls/hr BID@1100,2300 [facility] Administration Lidocaine 1 patch 03/10/24 23:17 Lidocaine 5% Patch TOPICAL DAILY PRN Back Pain Melatonin 5 mg 03/12/24 21:00 03/12/24 21:22 Melatonin 5 Mg Tablet PO 5 mg HS MASTER Administration Memantine 5 mg 03/10/24 23:20 03/13/24 08:31 Memantine 5 Mg Tablet PO 5 mg Q12HR MASTER Administration Mirtazapine 15 mg 03/10/24 23:30 03/12/24 21:23 Mirtazapine 15 Mg Tablet PO 15 mg HS MASTER Administration Nitrofurantoin Macrocrystals 100 mg 03/11/24 09:00 03/12/24 09:11 Nitrofurantoin Monohyd Macrocr 100 Mg Cap PO 100 mg DAILY MASTER Administration Ondansetron HCl 4 mg 03/13/24 08:12 03/13/24 08:31 Ondansetron Hcl Odt 4 Mg Tablet PO 4 mg Q6H PRN Administration Nausea And Vomiting Oxycodone HCl 5 mg 03/10/24 23:17 03/13/24 08:32 Oxycodone Hcl (*Crx) 5 Mg Tab Ir PO 5 mg Q4H PRN Administration Pain Rated 4-6 Prednisone 40 mg 03/11/24 08:00 03/13/24 08:32 Prednisone 20 Mg Tablet PO 03/16/24 07:59 40 mg DAILY@0800 MASTER Administration Vitamin D 1,000 units 03/11/24 09:00 03/13/24 08:32 Cholecalciferol 1,000 Units Tablet PO 1,000 units DAILY MASTER Administration Radiology Results: ITS Impressions Chest CTA 03/10/24 13:46 IMPRESSION: 1. No pulmonary embolism. 2. Consolidation the bilateral lower lobes with associated volume loss and more likely related atelectasis/partial collapse with lower density consolidation wit h surrounding groundglass opacities in the dependent left upper lobe and lingula which is more suspicious for pneumonia. 3. Mild cardiomegaly with minimal pulmonary edema at the visualized upper lungs and very small left pleural effusion. 4. Large sliding-type hiatal hernia. Chest X-Ray 03/12/24 13:26 IMPRESSION: Persistent bilateral mid and to a greater extent lower lobe atelectasis and/or infiltrate Labs Labs: Laboratory Results - last 24 hr 03/13/24 03/13/24 03:50 07:42 WBC 7.1 RBC 3.54 L Hgb 9.4 L Hct 33.2 L MCV 93.8 MCH 26.6 MCHC 28.3 L RDW 14.6 H Plt Count 170 MPV 10.1 Immature Gran % (Auto) 0.1 Neut % (Auto) 65.2 Lymph % (Auto) 26.2 [place] % (Auto) 7.9 Eos % (Auto) 0.3 Baso % (Auto) 0.3 Lymph # (Auto) 1.86 [place] # (Auto) 0.6 Eos # (Auto) 0.0 Baso # (Auto) 0.0 Abs Immat Gran (auto) 0.01 Absolute Neuts (auto) 4.6 Absolute Nucleated RBC 0.000 Nucleated RBC % 0.0 Platelet Estimate Adequate Hypochromasia 1+ Anisocytosis 1+ Schistocytes None seen Puncture Site Left radial ABG pH 7.398 ABG pCO2 65.8 H* ABG pO2 73.2 L ABG PO2/FiO2 Ratio 1.46 ABG HCO3 39.7 H ABG O2 Saturation 94.2 L ABG O2 Content 14.2 L ABG Base Excess 12.6 A-a Gradient 209.3 Oxyhemoglobin 93.9 Total Hemoglobin 10.7 L O2 Delivery Device High flow nasal denise O2 Liters/Min 7.0 FiO2 50 Sodium 140 Potassium 3.2 L Chloride 97 L Carbon Dioxide > 40 H Anion Gap BUN 17 Creatinine 1.00 Estim Creat Clear Calc Not Reportable Estimated GFR 52 L Glucose 96 Calcium 7.8 L Magnesium 2.0 Total Bilirubin 0.6 AST 38 H ALT 19 Alkaline Phosphatase 70 Total Protein 6.0 L Albumin 3.3 L
[2024-03-13] MEDS: CITALOPRAM HYDROBROMIDE 20 MG TABLET PO (21:24)
[2024-03-13] MEDS: MIRTAZAPINE 15 MG TABLET PO (21:25)
[2024-03-13] MEDS: ATORVASTATIN 40 MG TABLET 80 MG PO (21:25)
[2024-03-13] MEDS: MELATONIN 5 MG TABLET PO (21:26)
[2024-03-13] MEDS: DOXYCYCLINE 100 MG/NS 100 ML 100 MG/100 ML BAG 50 MG IVPB (23:44)
[2024-03-13] MEDS: traZODone HCL 50 MG TABLET PO (23:44)
[2024-03-14] VITALS (13 sets, daily range): BP systolic 92–153; BP diastolic 58–89; PULSE 52–79; RESP 13–27; TEMP 36.3–37.3; O2SAT 93–100
[2024-03-14] MEDS: PIPERACILLIN/TAZ 4.5G/NS 100ML 4.5 GM/100 ML BAG IVPB ×2 (02:43→09:48)
[2024-03-14 05:21] LABS: Basophils Percent Auto 0.2 % (0.2-1.2); Eosinophils Percent Auto 0.2 % (0-4.4); Hematocrit 31.4 % (37.0-47.0); Hemoglobin 9.2 g/dL (12.0-15.0); Immature Granulocyte Absolute 0.02 K/mm3 (0.00-0.031); Immature Granulocyte Percent A 0.3 % (0-0.5); Lymphocytes Absolute Auto 1.58 K/mm3 (0.9-3.2); Lymphocytes Percent Auto 26.7 % (18.3-44.2); Mean Corpuscular HGB Conc 29.3 g/dl (32-36); Mean Corpuscular Hemoglobin 27.5 pg (26-34); Mean Platelet Volume 10.3 fl (7.4-10.4); Monocytes Absolute Auto 0.5 K/mm3 (0.1-0.6); Monocytes Percent Auto 8.5 % (2.6-8.5); Neutrophils Absolute Auto 3.8 K/mm3 (1.3-6.7); Neutrophils Percent Auto 64.1 % (45.5-73.1); Platelet Count Result 157 k/mm3 (150-375); Red Blood Count 3.34 M/mm3 (4.2-5.4); Red Cell Distribution Width 14.4 % (11.5-14.5); White Blood Count 5.9 K/mm3 (4.5-10.0)
[2024-03-14 05:45] LABS: Alanine Aminotransferase 16 U/L (6-35); Albumin Level 3.1 g/dL (3.5-5.1); Alkaline Phosphatase 63 U/L (38-126); Aspartate Amino Transferase 31 U/L (14-36); Bilirubin,Total 0.6 mg/dL (0.2-1.3); Blood Urea Nitrogen 17 mg/dL (7-17); Calcium 7.7 mg/dL (8.4-10.2); Carbon Dioxide > 40 mmol/L (22-30); Chloride 98 mmol/L (98-107); Estimated Glomerular Filt Rate 47; Glucose 85 mg/dL (65-110); Magnesium 1.9 mg/dL (1.6-2.3); Sodium 141 mmol/L (137-145)
[2024-03-14 05:55] LABS: Platelet Estimate Adequate (Adequate)
[2024-03-14 05:56] LABS: Anisocytosis 1+; Hypochromasia 1+; Ovalocytes 1+; Schistocytes None Seen
[2024-03-14] MEDS: oxyCODONE HCL (*CRX) 5 MG TAB IR PO ×3 (06:18→20:52)
[2024-03-14] MEDS: MEMANTINE 5 MG TABLET PO ×2 (09:47→20:53)
[2024-03-14] MEDS: APIXABAN 5 MG TABLET PO ×2 (09:47→20:53)
[2024-03-14] MEDS: CHOLECALCIFEROL 1,000 UNITS TABLET 1000 UNITS PO (09:47)
[2024-03-14] MEDS: FERROUS SULFATE 325 MG TABLET DR PO (09:47)
[2024-03-14] MEDS: FUROSEMIDE 20 MG TABLET PO (09:48)
[2024-03-14] MEDS: ARIPiprazole 2 MG TABLET PO (09:48)
[2024-03-14] MEDS: guaiFENesin 12 HR 600 MG TABCR PO ×2 (09:48→20:53)
[2024-03-14] MEDS: predniSONE 20 MG TABLET 40 MG PO (09:48)
[2024-03-14] MEDS: amLODIPine BESYLATE 5 MG TABLET PO (09:51)
[2024-03-14] MEDS: POTASSIUM CHLORIDE 20 MEQ ER TABLET 40 MEQ PO (09:59)
[2024-03-14] MEDS: DOXYCYCLINE HYCLATE 100 MG TABLET PO ×2 (12:30→20:52)
--- NOTE | 2024-03-14 12:31 | P.PNIM_ITS ---
Progress Note: A&P Assessment and Plan (1) Sepsis: Qualifiers: Acute respiratory failure type: with hypercapnia Sepsis acute organ dysfunction status: with acute organ dysfunction Sepsis type: sepsis due to uns pecified organism Severe sepsis acute organ dysfunction type: acute respiratory failure Severe sepsis shock status: without septic shock Qualified Code(s): A41.9 - Sepsis, unspecified organism; R65.20 - Severe sepsis without septic shock; J96.02 - Acute respiratory failure with hypercapnia Code(s): A41.9 - Sepsis, unspecified organism Status: Acute Assessment and Plan: - meets SIRS criteria: HR, RR. +hypoxia, -hypoTN - lactic acid: 2.4 -> 1.9 - lactic elevated, procalcitonin added - 30 mL/kg = 2100, hx of HFpEF, will start LR at 100 mL/hr x1L. monitor toleration. - suspected source: Pneumonia - started on Zosyn. Added atypical coverage with doxycycline - blood cultures drawn on 03/10 - CXR and CTA concerning for pneumonia Will switch antibiotics to oral Taper oxygen as tolerated (2) Pneumonia: Qualifiers: Laterality: left Lung location: lower lobe of lung Pneumonia type: due to unspecified organism Qualified Code(s): J18.9 - Pneumonia, unspecified organism Code(s): J18.9 - Pneumonia, unspecified organism Status: Acute Assessment and Plan: - chest CTA: 1. No pulmonary embolism. 2. Consolidation the bilateral lower lobes with associated volume loss and more likely related atelectasis/partial collapse with lower density consolidation with surrounding groundglass opacities in the dependent left upper lobe and lingula which is more suspicious for pneumonia. 3. Mild cardiomegaly with minimal pulmonary edema at the visualized upper lungs and very small left pleural effusion. 4. Large sliding-type hiatal hernia. - risk factors and complicating factors: COPD - started on Zosyn on 03/10 add atypical coverage with doxycycline - MRSA PCR negative on of 02/01/2024 - Viral PCR negative - sputum culture, if obtainable - currently requiring BiPAP given significant elevation in CO2, try treat to baseline home O2 requirement is tolerated to maintain sat above 92% - supportive care Placed on AVAPS mode Will switch antibiotics to oral (3) CO2 retention: Code(s): E87.29 - Other acidosis Status: Acute Assessment and Plan: - ABG, initial: pH 7.331, pCO2 83.8, pO2 132, HCO3 43.3, O2 sat 98.3% - BiPAP in place, repeat ABG this afternoon and admission to IMU in for continuous BiPAP until CO2 elevation resolution/return to baseline - baseline CO2: 53-61 - mentation: A&O 4 Repeat ABG with improvement down to 60s pCO2 Chronically on noninvasive ventilation with AVAPS She is not compliant with her [place] She brought her own unit and will place on that unit (4) COPD (chronic obstructive pulmonary disease): Qualifiers: COPD type: COPD with acute exacerbation Qualified Code(s): J44.1 - Chronic obstructive pulmonary disease with (acute) exacerbation Code(s): J44.9 - Chronic obstructive pulmonary disease, unspecified Status: Acute Assessment and Plan: - acute exacerbation of chronic COPD - DuoNeb p.r.n. - initially given Solu-Medrol, transition to prednisone 40 mg daily x7 days - continue home inhalers (5) Acute and chronic respiratory failure with hypoxia: Code(s): J96.21 - Acute and chronic respiratory failure with hypoxia Status: Acute Assessment and Plan: - baseline O2 requirement: 2L NC - exacerbation secondary to PNA and COPD exacerbation - currently requiring BiPAP given significant elevation in CO2, try treat to baseline home O2 requirement is tolerated to maintain sat above 92% (6) Hypertension: Qualifiers: Hypertension type: primary hypertension Qualified Code(s): I10 - Essential (primary) hypertension Code(s): I10 - Essential (primary) hypertension Status: Chronic Assessment and Plan: - chronic, currently 124/94 - continue home medications: Amlodipine 5 mg - monitor (7) Obstructive sleep apnea: Code(s): G47.33 - Obstructive sleep apnea (adult) (pediatric) Status: Chronic Assessment and Plan: - continue home CPAP Plan History of PE 12/2023 with small non filling defects in left lower lobe on CTA. On Eliquis repeat CTA 01/2024 negative for PE Diet: Heart healthy GI Prophylaxis: Not currently indicated DVT Prophylaxis: Continue home Eliquis Lines: peripheral Code Status: DNR Subjective Date/time seen: 03/14/24 12:31 Interval history: No overnight events. Feels better. Oxygen lowered. Back to baseline Review of Systems Review of Systems: All systems reviewed & are unremarkable except as noted in HPI and below Exam Narrative: GENERAL: Well-appearing, well-nourished, and in no acute distress. HEAD: Normocephalic, atraumatic. EYES: EOMI. ENT: Nares clear, no rhinorrhea or epistaxis. Mucous membranes moist. NECK: Supple. CHEST: Diminished breath sounds bilaterally, Speaking in full sentences. On high-flow nasal cannula, No labored breathing. HEART: Regular rate and rhythm. No murmur heard. Normal peripheral pulses. ABDOMEN: Soft, nontender, nondistended, normal active bowel sounds. EXTREMITIES: Normal range of motion. 1+ pitting edema to bilateral lower extremities SKIN: Warm, dry, no rash. NEURO: No focal deficits. Alert and oriented x3 Objective Data Vital Signs Vital Signs: Vital Signs - 24 hr 03/13/24 14:00 03/13/24 16:00 03/13/24 16:00 Temperature 98.0 F Pulse Rate 80 78 81 Respiratory Rate 16 Blood Pressure 128/79 Pulse Oximetry 95 03/13/24 19:59 03/13/24 20:00 03/13/24 22:00 Temperature 98.7 F Pulse Rate 78 86 71 Respiratory Rate 16 Blood Pressure 124/68 Pulse Oximetry 97 03/13/24 21:50 03/13/24 23:46 03/14/24 00:00 Temperature 97.3 F L Pulse Rate 65 55 L 55 L Respiratory Rate 21 H 13 13 Blood Pressure 99/63 L Pulse Oximetry 99 97 100 03/14/24 00:00 03/14/24 02:00 03/14/24 04:00 Temperature 98.4 F Pulse Rate 70 70 65 Respiratory Rate 14 Blood Pressure 134/70 Pulse Oximetry 93 03/14/24 04:00 03/14/24 06:00 03/14/24 08:00 Temperature 97.3 F L Pulse Rate 55 L 69 55 L Respiratory Rate 13 Blood Pressure 99/63 L Pulse Oximetry 100 03/14/24 09:51 Temperature Pulse Rate Respiratory Rate Blood Pressure 136/58 L Pulse Oximetry Intake/Output Intake/Output: Intake & Output 03/11/24 03/12/24 03/13/24 03/14/24 23:59 23:59 23:59 23:59 Intake Total 3025 1500 1490 200 Output Total 1325 1550 400 225 Balance 1700 -50 1090 -25 Meds/Results Medications: Active Medications Generic Name Dose Route Start Last Admin Trade Name Freq PRN Reason Stop Dose Admin Acetaminophen 650 mg 03/10/24 14:24 03/10/24 21:18 Acetaminophen 325 Mg Tablet PO 650 mg Q6H PRN Administration Mild Pain (1-3) or Fever Albuterol 2.5 mg 03/10/24 23:17 Albuterol Sulfate Neb 2.5 Mg/3 Ml Inh INHALATION Q8H PRN Wheezing Albuterol/Ipratropium 3 ml 03/10/24 14:24 Ipratropium 0.5 Mg/Albuterol Sulfate 2.5 Mg Ampul.Neb 3 Ml INHALATION Q6HRT PRN Shortness Of Breath Or Wheezing Amlodipine Besylate 5 mg 03/11/24 09:00 03/14/24 09:51 Amlodipine Besylate 5 Mg Tablet PO 5 mg DAILY MASTER Administration Amoxicillin/Clavulanate Potassium 1 tablet 03/14/24 19:00 Amoxicillin/Clavulanate K 875-125 Mg Tab PO 03/17/24 21:01 Q12HR MASTER Apixaban 5 mg 03/10/24 23:25 03/14/24 09:47 Apixaban 5 Mg Tablet PO 5 mg Q12HR MASTER Administration Aripiprazole 2 mg 03/11/24 09:00 03/14/24 09:48 Aripiprazole 2 Mg Tablet PO 2 mg DAILY MASTER Administration Artificial Tears 1 drop 03/12/24 18:19 03/12/24 21:26 Artificial Tears Ophth Soln 15 Ml Bottle EACH EYE 1 drop QID PRN Administration Dry Eye(s) Atorvastatin Calcium 80 mg 03/10/24 23:25 03/13/24 21:25 Atorvastatin 40 Mg Tablet PO 80 mg HS MASTER Administration Benzonatate 100 mg 03/10/24 14:24 Benzonatate 100 Mg Capsule PO TID PRN Cough Bisacodyl 5 mg 03/10/24 23:17 Bisacodyl 5 Mg Tablet Ec PO DAILY PRN constipation Citalopram Hydrobromide 20 mg 03/10/24 23:25 03/13/24 21:24 Citalopram Hydrobromide 20 Mg Tablet PO 20 mg QHS MASTER Administration Docusate Sodium 100 mg 03/10/24 23:25 03/14/24 09:48 Docusate Sodium 100 Mg Capsule PO Not Given BID MASTER Doxycycline Hyclate 100 mg 03/14/24 12:15 03/14/24 12:30 Doxycycline Hyclate 100 Mg Tablet PO 03/16/24 21:01 100 mg Q12HR MASETR Administration Ferrous Sulfate 325 mg 03/12/24 09:00 03/14/24 09:47 Ferrous Sulfate [address] PO 325 mg Q48H MASTER Administration Furosemide 20 mg 03/11/24 09:00 03/14/24 09:48 Furosemide 20 Mg Tablet PO 20 mg DAILY MASTER Administration Guaifenesin 600 mg 03/10/24 21:00 03/14/24 09:48 Guaifenesin 12 Hr 600 Mg Tabcr PO 600 mg Q12HR MASTER Administration Guaifenesin 600 mg 03/10/24 23:17 Guaifenesin 12 Hr 600 Mg Tabcr PO Q12HR PRN Congestion Lidocaine 1 patch 03/10/24 23:17 Lidocaine 5% Patch TOPICAL DAILY PRN Back Pain Melatonin 5 mg 03/12/24 21:00 03/13/24 21:26 Melatonin 5 Mg Tablet PO 5 mg HS MASTER Administration Memantine 5 mg 03/10/24 23:20 03/14/24 09:47 Memantine 5 Mg Tablet PO 5 mg Q12HR MASTER Administration Mirtazapine 15 mg 03/10/24 23:30 03/13/24 21:25 Mirtazapine 15 Mg Tablet PO 15 mg HS MASTER Administration Nitrofurantoin Macrocrystals 100 mg 03/11/24 09:00 03/12/24 09:11 Nitrofurantoin Monohyd Macrocr 100 Mg Cap PO 100 mg DAILY MASTER Administration Ondansetron HCl 4 mg 03/13/24 08:12 03/13/24 08:31 Ondansetron Hcl Odt 4 Mg Tablet PO 4 mg Q6H PRN Administration Nausea And Vomiting Oxycodone HCl 5 mg 03/10/24 23:17 03/14/24 09:58 Oxycodone Hcl (*Crx) 5 Mg Tab Ir PO 5 mg Q4H PRN Administration Pain Rated 4-6 Prednisone 40 mg 03/11/24 08:00 03/14/24 09:48 Prednisone 20 Mg Tablet PO 03/16/24 07:59 40 mg DAILY@0800 MASTER Administration Trazodone HCl 50 mg 03/13/24 23:25 03/13/24 23:44 Trazodone Hcl 50 Mg Tablet PO 50 mg HS MASTER Administration Vitamin D 1,000 units 03/11/24 09:00 03/14/24 09:47 Cholecalciferol 1,000 Units Tablet PO 1,000 units DAILY MASTER Administration Radiology Results: ITS Impressions Chest CTA 03/10/24 13:46 IMPRESSION: 1. No pulmonary embolism. 2. Consolidation the bilateral lower lobes with associated volume loss and more likely related atelectasis/partial collapse with lower density consolidation with surrounding groundglass opacities in the dependent left upper lobe and lingula which is more suspicious for pneumonia. 3. Mild cardiomegaly with minimal pulmonary edema at the visualized upper lungs and very small left pleural effusion. 4. Large sliding-type hiatal hernia. Chest X-Ray 03/12/24 13:26 IMPRESSION: Persistent bilateral mid and to a greater extent lower lobe atelectasis and/or infiltrate Labs Labs: Laboratory Results - last 24 hr 03/14/24 03:53 WBC 5.9 RBC 3.34 L Hgb 9.2 L Hct 31.4 L MCV 94.0 MCH 27.5 MCHC 29.3 L RDW 14.4 Plt Count 157 MPV 10.3 Immature Gran % (Auto) 0.3 Neut % (Auto) 64.1 Lymph % (Auto) 26.7 [place] % (Auto) 8.5 Eos % (Auto) 0.2 Baso % (Auto) 0.2 Lymph # (Auto) 1.58 [place] # (Auto) 0.5 Eos # (Auto) 0.0 Baso # (Auto) 0.0 Abs Immat Gran (auto) 0.02 Absolute Neuts (auto) 3.8 Absolute Nucleated RBC 0.000 Nucleated RBC % 0.0 Platelet Estimate Adequate Hypochromasia 1+ Anisocytosis 1+ Ovalocytes 1+ Schistocytes None seen Sodium 141 Potassium 3.0 L Chloride 98 Carbon Dioxide > 40 H Anion Gap BUN 17 Creatinine 1.10 H Estim Creat Clear Calc Not Reportable Estimated GFR 47 L Glucose 85 Calcium 7.7 L Magnesium 1.9 Total Bilirubin 0.6 AST 31 ALT 16 Alkaline Phosphatase 63 Total Protein 6.0 L Albumin 3.1 L
[2024-03-14] MEDS: AMOXICILLIN/CLAVULANATE K 875-125 MG TAB 1 TABLET PO (18:52)
--- NOTE | 2024-03-14 20:06 | PC.NURSE ---
This patient, Jazmin Bullard, was transferred to [[address] [place] [address], room 245 ] on 03/14/24 at 1945. Personal belongings sent with patient. Report given to [MARGRET Garcia ]. Appropriate documentation sent with patient.
[2024-03-14] MEDS: MIRTAZAPINE 15 MG TABLET PO (20:52)
[2024-03-14] MEDS: traZODone HCL 50 MG TABLET PO (20:52)
[2024-03-14] MEDS: CITALOPRAM HYDROBROMIDE 20 MG TABLET PO (20:52)
[2024-03-14] MEDS: ATORVASTATIN 40 MG TABLET 80 MG PO (20:53)
[2024-03-14] MEDS: MELATONIN 5 MG TABLET PO (20:53)
[2024-03-15] VITALS (9 sets, daily range): BP systolic 136–149; BP diastolic 78–84; PULSE 70–74; RESP 16–20; TEMP 36.4–37.1; O2SAT 87–98
[2024-03-15 05:41] LABS: Basophils Percent Auto 0.2 % (0.2-1.2); Eosinophils Percent Auto 0.2 % (0-4.4); Hemoglobin 9.7 g/dL (12.0-15.0); Immature Granulocyte Absolute 0.02 K/mm3 (0.00-0.031); Immature Granulocyte Percent A 0.3 % (0-0.5); Lymphocytes Absolute Auto 1.69 K/mm3 (0.9-3.2); Lymphocytes Percent Auto 25.7 % (18.3-44.2); Mean Corpuscular HGB Conc 29.4 g/dl (32-36); Mean Corpuscular Hemoglobin 26.7 pg (26-34); Mean Corpuscular Volume 90.9 fl (80-100); Mean Platelet Volume 10.3 fl (7.4-10.4); Monocytes Absolute Auto 0.5 K/mm3 (0.1-0.6); Monocytes Percent Auto 7.5 % (2.6-8.5); Neutrophils Absolute Auto 4.4 K/mm3 (1.3-6.7); Neutrophils Percent Auto 66.1 % (45.5-73.1); Platelet Count Result 164 k/mm3 (150-375); Red Blood Count 3.63 M/mm3 (4.2-5.4); Red Cell Distribution Width 14.1 % (11.5-14.5); White Blood Count 6.6 K/mm3 (4.5-10.0)
[2024-03-15 05:57] LABS: Blood Urea Nitrogen 17 mg/dL (7-17); Calcium 8.4 mg/dL (8.4-10.2); Carbon Dioxide > 40 mmol/L (22-30); Chloride 99 mmol/L (98-107); Estimated Glomerular Filt Rate 52; Glucose 98 mg/dL (65-110); Magnesium 1.9 mg/dL (1.6-2.3); Potassium 3.4 mmol/L (3.4-5.0); Sodium 141 mmol/L (137-145)
[2024-03-15 07:05] LABS: Hypochromasia 1+; Ovalocytes 1+; Platelet Estimate Adequate (Adequate); Schistocytes None Seen
[2024-03-15] MEDS: guaiFENesin 12 HR 600 MG TABCR PO ×2 (08:34→19:49)
[2024-03-15] MEDS: oxyCODONE HCL (*CRX) 5 MG TAB IR PO ×3 (08:35→19:48)
[2024-03-15] MEDS: APIXABAN 5 MG TABLET PO ×2 (08:35→19:49)
[2024-03-15] MEDS: predniSONE 20 MG TABLET 40 MG PO (08:35)
[2024-03-15] MEDS: FUROSEMIDE 20 MG TABLET PO (08:35)
[2024-03-15] MEDS: AMOXICILLIN/CLAVULANATE K 875-125 MG TAB 1 TABLET PO ×2 (08:36→19:49)
[2024-03-15] MEDS: CHOLECALCIFEROL 1,000 UNITS TABLET 1000 UNITS PO (08:36)
[2024-03-15] MEDS: DOXYCYCLINE HYCLATE 100 MG TABLET PO ×2 (08:36→19:49)
[2024-03-15] MEDS: amLODIPine BESYLATE 5 MG TABLET PO (08:36)
[2024-03-15] MEDS: MEMANTINE 5 MG TABLET PO ×2 (08:36→19:48)
[2024-03-15] MEDS: ARIPiprazole 2 MG TABLET PO (08:36)
[2024-03-15] MEDS: IPRATROPIUM 0.5 MG/ALBUTEROL SULFATE 2.5 MG AMPUL.NEB 3 ML INHALATION (08:56)
--- NOTE | 2024-03-15 12:17 | P.PNIM_ITS ---
Progress Note: A&P Assessment and Plan (1) Sepsis: Qualifiers: Acute respiratory failure type: with hypercapnia Sepsis acute organ dysfunction status: with acute organ dysfunction Sepsis type: sepsis due to uns pecified organism Severe sepsis acute organ dysfunction type: acute respiratory failure Severe sepsis shock status: without septic shock Qualified Code(s): A41.9 - Sepsis, unspecified organism; R65.20 - Severe sepsis without septic shock; J96.02 - Acute respiratory failure with hypercapnia Code(s): A41.9 - Sepsis, unspecified organism Status: Acute Assessment and Plan: - meets SIRS criteria: HR, RR. +hypoxia, -hypoTN - lactic acid: 2.4 -> 1.9 - lactic elevated, procalcitonin added - 30 mL/kg = 2100, hx of HFpEF, will start LR at 100 mL/hr x1L. monitor toleration. - suspected source: Pneumonia - started on Zosyn. Added atypical coverage with doxycycline - blood cultures drawn on 03/10 - CXR and CTA concerning for pneumonia Will switch antibiotics to oral Taper oxygen as tolerated (2) Pneumonia: Qualifiers: Laterality: left Lung location: lower lobe of lung Pneumonia type: due to unspecified organism Qualified Code(s): J18.9 - Pneumonia, unspecified organism Code(s): J18.9 - Pneumonia, unspecified organism Status: Acute Assessment and Plan: - chest CTA: 1. No pulmonary embolism. 2. Consolidation the bilateral lower lobes with associated volume loss and more likely related atelectasis/partial collapse with lower density consolidation with surrounding groundglass opacities in the dependent left upper lobe and lingula which is more suspicious for pneumonia. 3. Mild cardiomegaly with minimal pulmonary edema at the visualized upper lungs and very small left pleural effusion. 4. Large sliding-type hiatal hernia. - risk factors and complicating factors: COPD - started on Zosyn on 03/10 add atypical coverage with doxycycline - MRSA PCR negative on of 02/01/2024 - Viral PCR negative - sputum culture, if obtainable - currently requiring BiPAP given significant elevation in CO2, try treat to baseline home O2 requirement is tolerated to maintain sat above 92% - supportive care Placed on AVAPS mode Switch antibiotics to oral. Recheck chest x-ray today. (3) CO2 retention: Code(s): E87.29 - Other acidosis Status: Acute Assessment and Plan: - ABG, initial: pH 7.331, pCO2 83.8, pO2 132, HCO3 43.3, O2 sat 98.3% - BiPAP in place, repeat ABG this afternoon and admission to IMU in for continuous BiPAP until CO2 elevation resolution/return to baseline - baseline CO2: 53-61 - mentation: A&O 4 Repeat ABG with improvement down to 60s pCO2 Chronically on noninvasive ventilation with AVAPS She is not compliant with her [facility] She brought her own unit and will place on that unit however has not happened yet. (4) COPD (chronic obstructive pulmonary disease): Qualifiers: COPD type: COPD with acute exacerbation Qualified Code(s): J44.1 - Chronic obstructive pulmonary disease with (acute) exacerbation Code(s): J44.9 - Chronic obstructive pulmonary disease, unspecified Status: Acute Assessment and Plan: - acute exacerbation of chronic COPD - DuoNeb p.r.n. - initially given Solu-Medrol, transition to prednisone 40 mg daily x7 days - continue home inhalers (5) Acute and chronic respiratory failure with hypoxia: Code(s): J96.21 - Acute and chronic respiratory failure with hypoxia Status: Acute Assessment and Plan: - baseline O2 requirement: 2L NC - exacerbation secondary to PNA and COPD exacerbation - currently requiring BiPAP given significant elevation in CO2, try treat to baseline home O2 requirement is tolerated to maintain sat above 92% (6) Hypertension: Qualifiers: Hypertension type: primary hypertension Qualified Code(s): I10 - Essential (primary) hypertension Code(s): I10 - Essential (primary) hypertension Status: Chronic Assessment and Plan: - chronic, currently 124/94 - continue home medications: Amlodipine 5 mg - monitor (7) Obstructive sleep apnea: Code(s): G47.33 - Obstructive sleep apnea (adult) (pediatric) Status: Chronic Assessment and Plan: - continue home CPAP Plan History of PE 12/2023 with small non filling defects in left lower lobe on CTA. On Eliquis repeat CTA 01/2024 negative for PE Diet: Heart healthy GI Prophylaxis: Not currently indicated DVT Prophylaxis: Continue home Eliquis Lines: peripheral Code Status: DNR Subjective Date/time seen: 03/15/24 12:17 Interval history: No overnight events. Patient reports some shortness of breath earlier today also has some cough. Oxygen requirement at 4 L via nasal cannula. Used AVAPS at night. Review of Systems Review of Systems: All systems reviewed & are unremarkable except as noted in HPI and below Exam Narrative: GENERAL: Well-appearing, well-nourished, and in no acute distress. HEAD: Normocephalic, atraumatic. EYES: EOMI. ENT: Nares clear, no rhinorrhea or epistaxis. Mucous membranes moist. NECK: Supple. CHEST: Diminished breath sounds bilaterally, Speaking in full sentences. On high-flow nasal cannula, No labored breathing. HEART: Regular rate and rhythm. No murmur heard. Normal peripheral pulses. ABDOMEN: Soft, nontender, nondistended, normal active bowel sounds. EXTREMITIES: Normal range of motion. 1+ pitting edema to bilateral lower extremities SKIN: Warm, dry, no rash. NEURO: No focal deficits. Alert and oriented x3 Objective Data Vital Signs Vital Signs: Vital Signs - 24 hr 03/14/24 14:00 03/14/24 16:00 03/14/24 16:00 Temperature 99.2 F Pulse Rate 71 64 Respiratory Rate 24 H Blood Pressure 130/68 Pulse Oximetry 96 97 Oxygen Delivery Nasal Cannula Oxygen Flow Rate 4 03/14/24 20:00 03/14/24 20:00 03/14/24 21:15 Temperature 97.9 F Pulse Rate 70 67 Respiratory Rate 20 27 H Blood Pressure 153/89 H Pulse Oximetry 97 95 95 Oxygen Delivery Nasal Cannula Oxygen Flow Rate 3 03/14/24 23:45 03/15/24 05:09 03/15/24 07:46 Temperature 97.5 F L Pulse Rate 70 Respiratory Rate 14 20 Blood Pressure 149/84 H Pulse Oximetry 98 87 L Oxygen Delivery Nasal Cannula Oxygen Flow Rate 3 03/15/24 08:58 03/15/24 08:58 03/15/24 09:06 Temperature Pulse Rate 74 72 Respiratory Rate 20 20 Blood Pressure Pulse Oximetry 91 Oxygen Delivery Nasal Cannula Oxygen Flow Rate 4 Intake/Output Intake/Output: Intake & Output 03/12/24 03/13/24 03/14/24 03/15/24 23:59 23:59 23:59 23:59 Intake Total 1500 1490 1420 522 Output Total 1550 400 225 Balance -50 1090 1195 522 Meds/Results Medications: Active Medications Generic Name Dose Route Start Last Admin Trade Name Freq PRN Reason Stop Dose Admin Acetaminophen 650 mg 03/10/24 14:24 03/10/24 21:18 Acetaminophen 325 Mg Tablet PO 650 mg Q6H PRN Administration Mild Pain (1-3) or Fever Albuterol 2.5 mg 03/10/24 23:17 Albuterol Sulfate Neb 2.5 Mg/3 Ml Inh INHALATION Q8H PRN Wheezing Albuterol/Ipratropium 3 ml 03/10/24 14:24 03/15/24 08:56 Ipratropium 0.5 Mg/Albuterol Sulfate 2.5 Mg Ampul.Neb 3 Ml INHALATION 3 ml Q6HRT PRN Administration Shortness Of Breath Or Wheezing Amlodipine Besylate 5 mg 03/11/24 09:00 03/15/24 08:36 Amlodipine Besylate 5 Mg Tablet PO 5 mg DAILY MASTER Administration Amoxicillin/Clavulanate Potassium 1 tablet 03/14/24 19:00 03/15/24 08:36 Amoxicillin/Clavulanate K 875-125 Mg Tab PO 03/17/24 21:01 1 tablet Q12HR MASTER Administration Apixaban 5 mg 03/10/24 23:25 03/15/24 08:35 Apixaban 5 Mg Tablet PO 5 mg Q12HR MASTER Administration Aripiprazole 2 mg 03/11/24 09:00 03/15/24 08:36 Aripiprazole 2 Mg Tablet PO 2 mg DAILY MASTER Administration Artificial Tears 1 drop 03/12/24 18:19 03/12/24 21:26 Artificial Tears Ophth Soln 15 Ml Bottle EACH EYE 1 drop QID PRN Administration Dry Eye(s) Atorvastatin Calcium 80 mg 03/10/24 23:25 03/14/24 20:53 Atorvastatin 40 Mg Tablet PO 80 mg HS MASTER Administration Benzonatate 100 mg 03/10/24 14:24 Benzonatate 100 Mg Capsule PO TID PRN Cough Bisacodyl 5 mg 03/10/24 23:17 Bisacodyl 5 Mg Tablet Ec PO DAILY PRN constipation Citalopram Hydrobromide 20 mg 03/10/24 23:25 03/14/24 20:52 Citalopram Hydrobromide 20 Mg Tablet PO 20 mg QHS MASTER Administration Docusate Sodium 100 mg 03/10/24 23:25 03/15/24 07:44 Docusate Sodium 100 Mg Capsule PO Not Given BID MASTER Doxycycline Hyclate 100 mg 03/14/24 12:15 03/15/24 08:36 Doxycycline Hyclate 100 Mg Tablet PO 03/16/24 21:01 100 mg Q12HR MASTER Administration Ferrous Sulfate 325 mg 03/12/24 09:00 03/14/24 09:47 Ferrous Sulfate [address] PO 325 mg Q48H MASTER Administration Furosemide 20 mg 03/11/24 09:00 03/15/24 08:35 Furosemide 20 Mg Tablet PO 20 mg DAILY [facility] Administration Guaifenesin 600 mg 03/10/24 21:00 03/15/24 08:34 Guaifenesin 12 Hr 600 Mg Tabcr PO 600 mg Q12HR [facility] Administration Guaifenesin 600 mg 03/10/24 23:17 Guaifenesin 12 Hr 600 Mg Tabcr PO Q12HR PRN Congestion Lidocaine 1 patch 03/10/24 23:17 Lidocaine 5% Patch TOPICAL DAILY PRN Back Pain Melatonin 5 mg 03/12/24 21:00 03/14/24 20:53 Melatonin 5 Mg Tablet PO 5 mg HS [facility] Administration Memantine 5 mg 03/10/24 23:20 03/15/24 08:36 Memantine 5 Mg Tablet PO 5 mg Q12HR [facility] Administration Mirtazapine 15 mg 03/10/24 23:30 03/14/24 20:52 Mirtazapine 15 Mg Tablet PO 15 mg HS [facility] Administration Nitrofurantoin Macrocrystals 100 mg 03/11/24 09:00 03/12/24 09:11 Nitrofurantoin Monohyd Macrocr 100 Mg Cap PO 100 mg DAILY [facility] Administration Ondansetron HCl 4 mg 03/13/24 08:12 03/13/24 08:31 Ondansetron Hcl Odt 4 Mg Tablet PO 4 mg Q6H PRN Administration Nausea And Vomiting Oxycodone HCl 5 mg 03/10/24 23:17 03/15/24 08:35 Oxycodone Hcl (*Crx) 5 Mg Tab Ir PO 5 mg Q4H PRN Administration Pain Rated 4-6 Prednisone 40 mg 03/11/24 08:00 03/15/24 08:35 Prednisone 20 Mg Tablet PO 03/16/24 07:59 40 mg DAILY@0800 [facility] Administration Trazodone HCl 50 mg 03/13/24 23:25 03/14/24 20:52 Trazodone Hcl 50 Mg Tablet PO 50 mg HS MASTER Administration Vitamin D 1,000 units 03/11/24 09:00 03/15/24 08:36 Cholecalciferol 1,000 Units Tablet PO 1,000 units DAILY MASTER Administration Radiology Results: ITS Impressions Chest CTA 03/10/24 13:46 IMPRESSION: 1. No pulmonary embolism. 2. Consolidation the bilateral lower lobes with associated volume loss and more likely related atelectasis/partial collapse with lower density consolidation with surrounding groundglass opacities in the dependent left upper lobe and lingula which is more suspicious for pneumonia. 3. Mild cardiomegaly with minimal pulmonary edema at the visualized upper lungs and very small left pleural effusion. 4. Large sliding-type hiatal hernia. Chest X-Ray 03/12/24 13:26 IMPRESSION: Persistent bilateral mid and to a greater extent lower lobe atelectasis and/or infiltrate Labs Labs: Laboratory Results - last 24 hr 03/15/24 04:56 WBC 6.6 RBC 3.63 L Hgb 9.7 L Hct 33.0 L MCV 90.9 MCH 26.7 MCHC 29.4 L RDW 14.1 Plt Count 164 MPV 10.3 Immature Gran % (Auto) 0.3 Neut % (Auto) 66.1 Lymph % (Auto) 25.7 [place] % (Auto) 7.5 Eos % (Auto) 0.2 Baso % (Auto) 0.2 Lymph # (Auto) 1.69 [place] # (Auto) 0.5 Eos # (Auto) 0.0 Baso # (Auto) 0.0 Abs Immat Gran (auto) 0.02 Absolute Neuts (auto) 4.4 Absolute Nucleated RBC 0.000 Nucleated RBC % 0.0 Platelet Estimate Adequate Hypochromasia 1+ Ovalocytes 1+ Schistocytes None seen Sodium 141 Potassium 3.4 Chloride 99 Carbon Dioxide > 40 H Anion Gap BUN 17 Creatinine 1.00 Estim Creat Clear Calc Not Reportable Estimated GFR 52 L Glucose 98 Calcium 8.4 Magnesium 1.9
[2024-03-15] MEDS: ATORVASTATIN 40 MG TABLET 80 MG PO (19:49)
[2024-03-15] MEDS: CITALOPRAM HYDROBROMIDE 20 MG TABLET PO (19:49)
[2024-03-15] MEDS: traZODone HCL 50 MG TABLET PO (22:08)
[2024-03-15] MEDS: MIRTAZAPINE 15 MG TABLET PO (22:09)
[2024-03-15] MEDS: MELATONIN 5 MG TABLET PO (22:09)
[2024-03-16] VITALS (9 sets, daily range): BP systolic 109–164; BP diastolic 67–100; PULSE 68–80; RESP 13–20; TEMP 36.4–36.7; O2SAT 95–98
[2024-03-16] MEDS: oxyCODONE HCL (*CRX) 5 MG TAB IR PO ×3 (06:35→20:19)
[2024-03-16] MEDS: CHOLECALCIFEROL 1,000 UNITS TABLET 1000 UNITS PO (08:32)
[2024-03-16] MEDS: APIXABAN 5 MG TABLET PO ×2 (08:32→20:18)
[2024-03-16] MEDS: MEMANTINE 5 MG TABLET PO ×2 (08:32→20:19)
[2024-03-16] MEDS: DOXYCYCLINE HYCLATE 100 MG TABLET PO ×2 (08:32→20:18)
[2024-03-16] MEDS: FUROSEMIDE 20 MG TABLET PO (08:32)
[2024-03-16] MEDS: amLODIPine BESYLATE 5 MG TABLET PO (08:32)
[2024-03-16] MEDS: FERROUS SULFATE 325 MG TABLET DR PO (08:32)
[2024-03-16] MEDS: ARIPiprazole 2 MG TABLET PO (08:32)
[2024-03-16] MEDS: AMOXICILLIN/CLAVULANATE K 875-125 MG TAB 1 TABLET PO ×2 (08:32→20:18)
[2024-03-16] MEDS: guaiFENesin 12 HR 600 MG TABCR PO ×2 (08:33→20:18)
--- NOTE | 2024-03-16 14:48 | P.PNIM_ITS ---
Progress Note: A&P Assessment and Plan (1) Sepsis: Qualifiers: Acute respiratory failure type: with hypercapnia Sepsis acute organ dysfunction status: with acute organ dysfunction Sepsis type: sepsis due to uns pecified organism Severe sepsis acute organ dysfunction type: acute respiratory failure Severe sepsis shock status: without septic shock Qualified Code(s): A41.9 - Sepsis, unspecified organism; R65.20 - Severe sepsis without septic shock; J96.02 - Acute respiratory failure with hypercapnia Code(s): A41.9 - Sepsis, unspecified organism Status: Acute Assessment and Plan: - meets SIRS criteria: HR, RR. +hypoxia, -hypoTN - lactic acid: 2.4 -> 1.9 - lactic elevated, procalcitonin added - 30 mL/kg = 2100, hx of HFpEF, will start LR at 100 mL/hr x1L. monitor toleration. - suspected source: Pneumonia - started on Zosyn. Added atypical coverage with doxycycline - BCx negative - CXR and CTA concerning for pneumonia Switched antibiotics to oral to complete a course Taper oxygen as tolerated (2) Acute and chronic respiratory failure with hypoxia: Code(s): J96.21 - Acute and chronic respiratory failure with hypoxia Status: Acute Assessment and Plan: ABG, initial: pH 7.331, pCO2 83.8, pO2 132, HCO3 43.3, O2 sat 98.3% - BiPAP placed and admitted to IMU in for continuous BiPAP until CO2 elevation resolution/return to baseline - baseline CO2: 53-61. baseline O2 requirement: 2L NC - mentation: A&O 4 Repeat ABG with improvement down to 60s pCO2 - exacerbation secondary to PNA and COPD exacerbation Chronically on noninvasive ventilation with AVAPS She is not compliant with her [facility] She brought her own unit but still using the hospital unit Wean O2 as tolerated (3) Pneumonia: Qualifiers: Laterality: left Lung location: lower lobe of lung Pneumonia type: due to unspecified organism Qualified Code(s): J18.9 - Pneumonia, unspecified organ ism Code(s): J18.9 - Pneumonia, unspecified organism Status: Acute Assessment and Plan: - chest CTA: 1. No pulmonary embolism. 2. Consolidation the bilateral lower lobes with associated volume loss and more likely related atelectasis/partial collapse with lower density consolidation with surrounding groundglass opacities in the dependent left upper lobe and lingula which is more suspicious for pneumonia. 3. Mild cardiomegaly with minimal pulmonary edema at the visualized upper lungs and very small left pleural effusion. 4. Large sliding-type hiatal hernia. - risk factors and complicating factors: COPD - started on Zosyn and atypical coverage with doxycycline added - MRSA PCR negative - Viral PCR negative - did require BiPAP given significant elevation in CO2 but weaned to use at night and with naps - supportive care Switched antibiotics to oral. Recheck chest x-ray 03/15 showing stable airspace opacities in the lower lung zones consistent with atelectasis versus pneumonia. Wean oxygen as tolerated (4) CO2 retention: Code(s): E87.29 - Other acidosis Status: Acute Assessment and Plan: As above (5) COPD (chronic obstructive pulmonary disease): Qualifiers: COPD type: COPD with acute exacerbation Qualified Code(s): J44.1 - Chronic obstructive pulmonary disease with (acute) exacerbation Code(s): J44.9 - Chronic obstructive pulmonary disease, unspecified Status: Acute Assessment and Plan: - acute exacerbation of chronic COPD - DuoNeb p.r.n. - initially given Solu-Medrol, transition to prednisone 40 mg daily x7 days - continue home inhalers (6) Hypertension: Qualifiers: Hypertension type: primary hypertension Qualified Code(s): I10 - Essential (primary) hypertension Code(s): I10 - Essential (primary) hypertension Status: Chronic Assessment and Plan: Patient's blood pressure was reviewed on 03/16/24 Blood pressure remains reasonably well controlled. Will continue current medications. (7) Obstructive sleep apnea: Code(s): G47.33 - Obstructive sleep apnea (adult) (pediatric) Status: Chronic Assessment and Plan: Continue home CPAP as she tolerates Plan History of PE 12/2023 with small non filling defects in left lower lobe on CTA. On Eliquis repeat CTA 01/2024 negative for PE DVT Prophylaxis: Eliquis Code Status: DNR Subjective Date/time seen: 03/16/24 14:48 Interval history: 89yo female with asthma, COPD, chronic respiratory failure (on 2L NC chronically), DVT, GERD, HFpEF, ROSALIA, and paroxysmal AFib here for shortness of breath. Slept okay. Able to tolerate the bipap 4-5 hours. No CP. SOB better. Still with cough. Was having diarrhea prior to admission but better and had 1 loose stool yesterday. Exam Narrative: AF 98.1 109/67 77 16 98% 4L Gen - NARD Chest - left mid and lower lung inspiratory crackles CV - RRR S1/S2 with 2/6 systolic murmur LLSB Abd - Soft, NT/ND, Positive BS Ext - No pedal edema Psych - Nml mood and affect Skin - Warm and dry Objective Data Vital Signs Vital Signs: Vital Signs - 24 hr 03/15/24 20:21 03/15/24 20:00 03/15/24 22:10 Temperature 98.8 F Pulse Rate 74 73 Respiratory Rate 20 16 Blood Pressure 136/84 Pulse Oximetry 95 95 95 Oxygen Delivery Nasal Cannula BiPAP Oxygen Flow Rate 4 Fraction of Inspired Oxygen 03/16/24 02:30 03/16/24 04:42 03/16/24 08:02 Temperature 97.8 F Pulse Rate 68 Respiratory Rate 13 20 Blood Pressure 164/100 H Pulse Oximetry 95 95 95 Oxygen Delivery BiPAP Nasal Cannula Oxygen Flow Rate 4 Fraction of Inspired Oxygen 36 03/16/24 08:00 Temperature Pulse Rate Respiratory Rate Blood Pressure Pulse Oximetry 95 Oxygen Delivery Nasal Cannula Oxygen Flow Rate 4 Fraction of Inspired Oxygen Intake/Output Intake/Output: Intake & Output 03/13/24 03/14/24 03/15/24 03/16/24 23:59 23:59 23:59 23:59 Intake Total 1490 1420 984 360 Output Total 400 225 950 Balance 1090 1195 984 -590 Meds/Results Medications: Active Medications Generic Name Dose Route Start Last Admin Trade Name Freq PRN Reason Stop Dose Admin Acetaminophen 650 mg 03/10/24 14:24 03/10/24 21:18 Acetaminophen 325 Mg Tablet PO 650 mg Q6H PRN Administration Mild Pain (1-3) or Fever Albuterol 2.5 mg 03/10/24 23:17 Albuterol Sulfate Neb 2.5 Mg/3 Ml Inh INHALATION Q8H PRN Wheezing Albuterol/Ipratropium 3 ml 03/10/24 14:24 03/15/24 08:56 Ipratropium 0.5 Mg/Albuterol Sulfate 2.5 Mg Ampul.Neb 3 Ml INHALATION 3 ml Q6HRT PRN Administration Shortness Of Breath Or Wheezing Amlodipine Besylate 5 mg 03/11/24 09:00 03/16/24 08:32 Amlodipine Besylate 5 Mg Tablet PO 5 mg DAILY MASTER Administration Amoxicillin/Clavulanate Potassium 1 tablet 03/14/24 19:00 03/16/24 08:32 Amoxicillin/Clavulanate K 875-125 Mg Tab PO 03/17/24 21:01 1 tablet Q12HR MASTER Administration Apixaban 5 mg 03/10/24 23:25 03/16/24 08:32 Apixaban 5 Mg Tablet PO 5 mg Q12HR MASTER Administration Aripiprazole 2 mg 03/11/24 09:00 03/16/24 08:32 Aripiprazole 2 Mg Tablet PO 2 mg DAILY MASTER Administration Artificial Tears 1 drop 03/12/24 18:19 03/12/24 21:26 Artificial Tears Ophth Soln 15 Ml Bottle EACH EYE 1 drop QID PRN Administration Dry Eye(s) Atorvastatin Calcium 80 mg 03/10/24 23:25 03/15/24 19:49 Atorvastatin 40 Mg Tablet PO 80 mg HS MASTER Administration Benzonatate 100 mg 03/10/24 14:24 Benzonatate 100 Mg Capsule PO TID PRN Cough Bisacodyl 5 mg 03/10/24 23:17 Bisacodyl 5 Mg Tablet Ec PO DAILY PRN constipation Citalopram Hydrobromide 20 mg 03/10/24 23:25 03/15/24 19:49 Citalopram Hydrobromide 20 Mg Tablet PO 20 mg QHS MASTER Administration Docusate Sodium 100 mg 03/10/24 23:25 03/16/24 08:33 Docusate Sodium 100 Mg Capsule PO Not Given BID [facility] Doxycycline Hyclate 100 mg 03/14/24 12:15 03/16/24 08:32 Doxycycline Hyclate 100 Mg Tablet PO 03/16/24 21:01 100 mg Q12HR MASTER Administration Ferrous Sulfate 325 mg 03/12/24 09:00 03/16/24 08:32 Ferrous Sulfate [address] PO 325 mg Q48H MASTER Administration Furosemide 20 mg 03/11/24 09:00 03/16/24 08:32 Furosemide 20 Mg Tablet PO 20 mg DAILY MASTER Administration Guaifenesin 600 mg 03/10/24 21:00 03/16/24 08:33 Guaifenesin 12 Hr 600 Mg Tabcr PO 600 mg Q12HR MASTER Administration Guaifenesin 600 mg 03/10/24 23:17 Guaifenesin 12 Hr 600 Mg Tabcr PO Q12HR PRN Congestion Lidocaine 1 patch 03/10/24 23:17 Lidocaine 5% Patch TOPICAL DAILY PRN Back Pain Melatonin 5 mg 03/12/24 21:00 03/15/24 22:09 Melatonin 5 Mg Tablet PO 5 mg HS MASTER Administration Memantine 5 mg 03/10/24 23:20 03/16/24 08:32 Memantine 5 Mg Tablet PO 5 mg Q12HR MASTER Administration Mirtazapine 15 mg 03/10/24 23:30 03/15/24 22:09 Mirtazapine 15 Mg Tablet PO 15 mg HS MASTER Administration Nitrofurantoin Macrocrystals 100 mg 03/11/24 09:00 03/12/24 09:11 Nitrofurantoin Monohyd Macrocr 100 Mg Cap PO 100 mg DAILY MASTER Administration Ondansetron HCl 4 mg 03/13/24 08:12 03/13/24 08:31 Ondansetron Hcl Odt 4 Mg Tablet PO 4 mg Q6H PRN Administration Nausea And Vomiting Oxycodone HCl 5 mg 03/10/24 23:17 03/16/24 13:48 Oxycodone Hcl (*Crx) 5 Mg Tab Ir PO 5 mg Q4H PRN Administration Pain Rated 4-6 Trazodone HCl 50 mg 03/13/24 23:25 03/15/24 22:08 Trazodone Hcl 50 Mg Tablet PO 50 mg HS MASTER Administration Vitamin D 1,000 units 03/11/24 09:00 03/16/24 08:32 Cholecalciferol 1,000 Units Tablet PO 1,000 units DAILY MASTER Administration Radiology Results: ITS Impressions Chest CTA 03/10/24 13:46 IMPRESSION: 1. No pulmonary embolism. 2. Consolidation the bilateral lower lobes with associated volume loss and more likely related atelectasis/partial collapse with lower density consolidation with surrounding groundglass opacities in the dependent left upper lobe and lingula which is more suspicious for pneumonia. 3. Mild cardiomegaly with minimal pulmonary edema at the visualized upper lungs and very small left pleural effusion. 4. Large sliding-type hiatal hernia. Chest X-Ray 03/15/24 14:10 IMPRESSION: 1. Stable airspace opacities in the lower lung zones, consistent with atelectasis versus pneumonia. 2. Moderate-sized hiatal hernia.
[2024-03-16] MEDS: ATORVASTATIN 40 MG TABLET 80 MG PO (20:18)
[2024-03-16] MEDS: CITALOPRAM HYDROBROMIDE 20 MG TABLET PO (20:18)
[2024-03-16] MEDS: MELATONIN 5 MG TABLET PO (20:19)
[2024-03-16] MEDS: MIRTAZAPINE 15 MG TABLET PO (20:19)
[2024-03-16] MEDS: traZODone HCL 50 MG TABLET PO (20:19)
[2024-03-17] MEDS: oxyCODONE HCL (*CRX) 5 MG TAB IR PO ×2 (02:23→12:22)
[2024-03-17 02:30] VITALS: PULSE 72; RESP 11; O2SAT 96
[2024-03-17 05:36] VITALS: BP 150/78; PULSE 77; RESP 20; TEMP 36.2; O2SAT 100
[2024-03-17 06:37] LABS: Albumin Level 3.2 g/dL (3.5-5.1); Blood Urea Nitrogen 22 mg/dL (7-17); Calcium 8.4 mg/dL (8.4-10.2); Carbon Dioxide > 40 mmol/L (22-30); Chloride 98 mmol/L (98-107); Estimated Glomerular Filt Rate 42; Glucose 98 mg/dL (65-110); Magnesium 1.8 mg/dL (1.6-2.3); Phosphorus 5.1 mg/dL (2.5-4.5); Potassium 2.8 mmol/L (3.4-5.0); Sodium 139 mmol/L (137-145)
[2024-03-17] MEDS: POTASSIUM CHLORIDE 20 MEQ ER TABLET 60 MEQ PO (07:01)
[2024-03-17 08:29] VITALS: O2SAT 95
[2024-03-17] MEDS: AMOXICILLIN/CLAVULANATE K 875-125 MG TAB 1 TABLET PO (08:38)
[2024-03-17] MEDS: APIXABAN 5 MG TABLET PO (08:38)
[2024-03-17] MEDS: CHOLECALCIFEROL 1,000 UNITS TABLET 1000 UNITS PO (08:38)
[2024-03-17] MEDS: DOCUSATE SODIUM 100 MG CAPSULE PO ×2 (08:38→16:16)
[2024-03-17] MEDS: guaiFENesin 12 HR 600 MG TABCR PO (08:38)
[2024-03-17 08:39] VITALS: RESP 20; O2SAT 95
[2024-03-17] MEDS: MEMANTINE 5 MG TABLET PO (08:39)
[2024-03-17] MEDS: ARIPiprazole 2 MG TABLET PO (08:39)
[2024-03-17] MEDS: amLODIPine BESYLATE 5 MG TABLET PO (08:39)
[2024-03-17] MEDS: FUROSEMIDE 20 MG TABLET PO (08:39)
[2024-03-17] MEDS: MAGNESIUM SULF 1 GM/D5W 100 ML 1 GM/100 ML BAG IVPB (08:54)
[2024-03-17 11:13] LABS: Potassium 3.2 mmol/L (3.4-5.0)
[2024-03-17] MEDS: POTASSIUM CHLORIDE 20 MEQ ER TABLET PO (12:19)
--- NOTE | 2024-03-17 12:36 | P.DS_ITS ---
DS: Admitting Diagnosis Discharge Date 03/17/24 Admitting Diagnosis Shortness of breath DS: Discharge Diagnosis Discharge Diagnosis (1) Sepsis: Qualifiers: Acute respiratory failure type: with hypercapnia Sepsis acute organ dysfunction status: with acute organ dysfunction Sepsis type: sepsis due to unspecified organism Severe sepsis acute organ dysfunction type: acute respiratory failure Severe sepsis shock status: without septic shock Qualified Code(s): A41.9 - Sepsis, unspecified organism; R65.20 - Severe sepsis without septic shock; J96.02 - Acute respiratory failure with hypercapnia Code(s): A41.9 - Sepsis, unspecified organism Status: Acute (2) Acute and chronic respiratory failure with hypoxia: Code(s): J96.21 - Acute and chronic respiratory failure with hypoxia Status: Acute (3) Pneumonia: Qualifiers: Laterality: left Lung location: lower lobe of lung Pneumonia type: due to unspecified organism Qualified Code(s): J18.9 - Pneumonia, unspecified organism Code(s): J18.9 - Pneumonia, unspecified organism Status: Acute (4) CO2 retention: Code(s): E87.29 - Other acidosis Status: Acute (5) COPD (chronic obstructive pulmonary disease): Qualifiers: COPD type: COPD with acute exacerbation Qualified Code(s): J44.1 - Chronic obstructive pulmonary disease with (acute) exacerbation Code(s): J44.9 - Chronic obstructive pulmonary disease, unspecified Status: Acute (6) Hypertension: Qualifiers: Hypertension type: primary hypertension Qualified Code(s): I10 - Essential (primary) hypertension Code(s): I10 - Essential (primary) hypertension Status: Chronic (7) Obstructive sleep apnea: Code(s): G47.33 - Obstructive sleep apnea (adult) (pediatric) Status: Chronic (8) Hypokalemia: Code(s): E87.6 - Hypokalemia Status: Acute DS: Summary Hospital Course Reason for hospitalization: 89yo female with asthma, COPD, chronic respiratory failure (on 2L NC chronically), DVT, GERD, HFpEF, ROSALIA, and paroxysmal AFib here for shortness of breath. Please see H&P for details. Hospital Course: Patient presents with shortness of breath and found to have met sepsis criteria. Lactic acid was 2.4. Chest CTA showing no PE but consolidation the bilateral lower lobes with associated volume loss and more likely related atelectasis/partial collapse with lower density consolidation with surrounding groundglass opacities in the dependent left upper lobe and lingula which is more suspicious for pneumonia. Mild cardiomegaly with minimal pulmonary edema at the visualized upper lungs and very small left pleural effusion also noted. BCx collected and abx started. [place] sepsis related to PNA. She was also noted to have acute on chronic respiratory failure. ABG 7.33/84/132 on 15L. BiPAP placed and admitted to IMU. Her baseline PCO2: 53-61. Baseline O2 requirement: 2L NC. Chronically on noninvasive ventilation with AVAPS. Repeat ABG showing improvement. MRSA PCR negative. Viral PCR negative. Also felt there was a COPD component. Initially given Solu-Medrol and then transitioned to prednisone which she completed. Repeat chest x-ray 03/15 showing stable airspace opacities in the lower lung zones consistent with atelectasis versus pneumonia. Able to wean oxygen to 4L. She worked with therapy. She is tolerating the mask at night. She had low potassium that was replaced. Left message with family. She overall did well and was able to be discharged on 03/17/24. Status at Discharge Cognitive/behavioral status at discharge: stable Time Spent with Patient Time attestation: Total time spent providing and/or coordinating discharge services: 35 minutes Time spent: Greater than 30 minutes Exam Narrative: AF 97.2 150/78 77 20 95% 4L Gen - NARD Chest - scattered expiratory rhonchi and left base crackles CV - RRR S1/S2 Abd - Soft, NT/ND, Positive BS Ext - No pedal edema Psych - Nml mood and affect Skin - Warm and dry DS: Data Data Completed and Pending Labs on day of discharge: Labs from last 24 hours 03/17/24 03/17/24 10:39 05:42 Sodium 139 Potassium 3.2 L 2.8 L* Chloride 98 Carbon Dioxide > 40 H Anion Gap BUN 22 H Creatinine 1.20 H Estim Creat Clear Calc Not Reportable Estimated GFR 42 L Glucose 98 Calcium 8.4 Phosphorus 5.1 H Magnesium 1.8 Albumin 3.2 L Discharge Plan Discharge Attending physician on discharge: Myron Harris Consulting providers: Beth Gurrola Discharging Clinician: Myron Harris Anticipated Discharge Date/Time: 03/17/24 12:51 Patient Disposition: SNF Activity: as tolerated Diet: heart healthy Discharge Instructions: Continue supplemental oxygen at 4Liters. Wean to baseline 2Liters as tolerated to keep SpO2>92%. Continue current AVAPS at home settings. Wear for naps and at sleep. Check blood pressure 1 to 2 times a day. Record for the doctor's review. Take precautions to avoid falls. Rise slowly from a lying or sitting position. Pause before standing or walking. Contact the doctor if the patient has any type of trauma, lightheadedness with standing or other worrisome symptoms. Avoid NSAIDs (ibuprofen, naproxen, Aleve). Tylenol is safe to take. Follow-up with the provider at the facility. Thank you for using [facility] for your health care needs. Stand Alone Forms: General Discharge Information Follow-up/Referrals: Alma,BERE Upton [Primary Care Provider] - Call for Appointment Discharge Medications: New amoxicillin-pot clavulanate 875-125 mg tablet 1 tablet PO Q12H Qty: 1 0RF potassium chloride 10 mEq capsule, extended release 10 meq PO DAILY Qty: 10 0RF Continued docusate sodium 100 mg Capsule 100 mg PO BID Qty: 60 0RF mirtazapine [Remeron] 15 mg Tablet 15 mg PO HS Qty: 30 0RF trazodone 50 mg tablet 50 mg PO HS Qty: 30 0RF nitrofurantoin monohyd/m-cryst [Macrobid] 100 mg Capsule 100 mg PO DAILY Qty: 30 0RF Eliquis 5 mg tablet 5 mg PO BID Qty: 60 0RF aripiprazole 2 mg tablet 2 mg PO DAILY furosemide 20 mg tablet 20 mg PO DAILY polyethylene glycol 3350 [Miralax] 17 gram Powder In Packet 17 g PO QAM PRN (Reason: Constipation) Qty: 30 0RF amlodipine [Norvasc] 5 mg Tablet 5 mg PO DAILY Qty: 90 0RF oxycodone 5 mg Tablet 5 mg PO Q4H PRN (Reason: Pain Rated 4-6) Qty: 10 0RF atorvastatin 80 mg Tablet 80 mg PO HS memantine 5 mg Tablet 5 mg PO Q12H pramipexole [Mirapex] 0.5 mg Tablet 0.5 mg PO HS ferrous sulfate 325 mg (65 mg iron) tablet 325 mg PO Q48H pregabalin 100 mg capsule 100 mg PO Q12H citalopram 20 mg tablet 20 mg PO QHS lidocaine [Lidocaine Pain Relief] 4 % adhesive patch,medicated 1 patch transdermal DAILY PRN (Reason: Back Pain) Rx Instructions: Apply to back as needed for continued back pain. guaifenesin [Mucus Relief ER] 600 mg tablet extended release 12hr 600 mg PO Q12HR PRN (Reason: Congestion) PreserVision AREDS-2 250-90-40-1 mg Capsule 1 tablet PO BID albuterol sulfate 2.5 mg /3 mL (0.083 %) Solution For Nebulization 2.5 mg INHALATION Q8H PRN (Reason: Wheezing) cholecalciferol (vitamin D3) [Vitamin D3] 25 mcg (1,000 unit) Capsule 25 mcg PO DAILY pantoprazole 40 mg tablet,delayed release (DR/EC) 40 mg PO QAM Qty: 30 0RF Trelegy Ellipta 100-62.5-25 mcg Blister With Device 1 inh INHALATION DAILY Qty: 28 0RF Date of admission: 03/11/24 09:55 Primary Care Provider: AlmaAlexsandra Admitting Provider: Terence Arana Attending physician on admission: Terence Arana Condition: Stable Hospitalist MIPS Heart Failure (Exclusion) Patient has history of Heart Transplant or Left Ventricular Assistive Device?: No IF YES, STOP HERE Heart Failure (Qualifier) Patient has current or prior documentation of LVEF less than or equal to 40%, or mod/servere depressed LVSF?: No IF NO, STOP HERE
[2024-03-17 14:00] VITALS: BP 106/62; PULSE 80; RESP 16; TEMP 36.5; O2SAT 100
[2024-03-17] MEDS: BENZONATATE 100 MG CAPSULE PO (16:16)
== END 2024-03-17 18:30 | DRG 871 ==
LOC: ANHED 14:24 → ANHIMU 15:29 → ANH2MED 03-14 19:41
PROVIDERS: Internal Medicine; Student in an Organized Health Care Education/Training Program; Admitting Provider Internal Medicine; Emergency Provider Physician Assistant; PCP Physician Assistant; Visit Provider Internal Medicine
DX: A41.9 Sepsis, unspecified organism (principal); J18.9 Pneumonia, unspecified organism; J96.21 Acute and chronic respiratory failure with hypoxia; J96.11 Chronic respiratory failure with hypoxia; I50.32 Chronic diastolic (congestive) heart failure; J44.0 Chronic obstructive pulmonary disease with (acute) lower respiratory infection; J44.1 Chronic obstructive pulmonary disease with (acute) exacerbation; E87.29 Other acidosis; R65.20 Severe sepsis without septic shock; I11.0 Hypertensive heart disease with heart failure; I48.0 Paroxysmal atrial fibrillation; E78.5 Hyperlipidemia, unspecified; K21.9 Gastro-esophageal reflux disease without esophagitis; K44.9 Diaphragmatic hernia without obstruction or gangrene; G89.29 Other chronic pain; G47.33 Obstructive sleep apnea (adult) (pediatric); F41.9 Anxiety disorder, unspecified; F32.A Depression, unspecified; Z20.822 Contact with and (suspected) exposure to COVID-19; Z99.81 Dependence on supplemental oxygen; Z79.01 Long term (current) use of anticoagulants; Z86.711 Personal history of pulmonary embolism; Z86.718 Personal history of other venous thrombosis and embolism; Z98.1 Arthrodesis status; Z87.891 Personal history of nicotine dependence
CPT/HCPCS: 36415; 36600; 71045; 71275; 80048; 80053; 80069; 82805; 83605; 83735; 83880; 84132; 84145; 85018; 85025; 85055; 85610; 85730; 87040; 87637; 93005; 94002; 94003; 94640; 96365; 96375; 97161; 97165; 99285; A9270; G0378; J1940; J2543; J2919; J3475; J7120; J7512; Q9967

== ENCOUNTER 2024-03-24 12:43 | Emergency (ER) | payer MEDICARE, SELFPAY ==
[2024-03-24] VITALS (7 sets, daily range): BP systolic 154–160; BP diastolic 80–98; PULSE 92–111; RESP 17–22; TEMP 36.6; O2SAT 88–94
--- NOTE | ~2024-03-24 | XR_ITS ---
XR chest 1V portable 03/24/2024 13:49 Indication: Dyspnea. COPD. Procedure: AP portable chest Comparison: Comparison to multiple prior studies sequentially, with oldest reviewed study dated 01/12. Findings: Shallow inspiration with crowding of the pulmonary vessels. Chronic left basilar infiltrate s, most likely atelectasis or pneumonia. These are improved compared with 03/10/2024. Advanced degene rative changes of the shoulders, left greater than right. Osteopenia. Impression: 1: Improving left basilar consolidation which may represent resolving atelectasis or pneumonia. Reviewed, dictated and finalized at location B. [employer] Impression: 1: Improving left basilar consolidation which may represent resolving atelectas is or pneumonia.
--- NOTE | 2024-03-24 12:37 | ECG_ITS ---
Test Date: 2024-03-24 12:41:16 Measurements Intervals [place] Rate: 100 P: 64 LA: 152 QRS: 33 QRSD: 129 T: -12 QT: 359 QTc: 464 Interpretive Statements SINUS TACHYCARDIA RIGHT BUNDLE BRANCH BLOCK BORDERLINE ST-T WAVE ABNORMALITY IN INF-LAT LEADS Compared to ECG 03/11/2024 22:55:59 Sinus rhythm no longer present Electronically Signed On 03-24-2024 16:17:10 READING AIDE by Ana Dasilva
[2024-03-24 12:55] LABS: Basophils Percent Auto 0.1 % (0.2-1.2); Eosinophils Absolute Auto 0.2 K/mm3 (0-0.3); Eosinophils Percent Auto 2.3 % (0-4.4); Hematocrit 36.7 % (37.0-47.0); Hemoglobin 10.4 g/dL (12.0-15.0); Immature Granulocyte Absolute 0.02 K/mm3 (0.00-0.031); Immature Granulocyte Percent A 0.3 % (0-0.5); Lymphocytes Absolute Auto 0.74 K/mm3 (0.9-3.2); Lymphocytes Percent Auto 10.6 % (18.3-44.2); Mean Corpuscular HGB Conc 28.3 g/dl (32-36); Mean Corpuscular Hemoglobin 26.3 pg (26-34); Mean Corpuscular Volume 92.7 fl (80-100); Mean Platelet Volume 9.7 fl (7.4-10.4); Monocytes Absolute Auto 0.3 K/mm3 (0.1-0.6); Monocytes Percent Auto 4.7 % (2.6-8.5); Neutrophils Absolute Auto 5.7 K/mm3 (1.3-6.7); Platelet Count Result 174 k/mm3 (150-375); Red Blood Count 3.96 M/mm3 (4.2-5.4); Red Cell Distribution Width 14.3 % (11.5-14.5)
[2024-03-24 13:07] LABS: Alanine Aminotransferase 19 U/L (6-35); Albumin Level 3.5 g/dL (3.5-5.1); Alkaline Phosphatase 92 U/L (38-126); Anion Gap 1 mmol/L (4-12); Aspartate Amino Transferase 33 U/L (14-36); Bilirubin,Total 0.5 mg/dL (0.2-1.3); Blood Urea Nitrogen 14 mg/dL (7-17); Calcium 8.2 mg/dL (8.4-10.2); Carbon Dioxide 39 mmol/L (22-30); Chloride 101 mmol/L (98-107); Estimated Glomerular Filt Rate > 60; Glucose 113 mg/dL (65-110); Magnesium 1.8 mg/dL (1.6-2.3); Potassium 4.4 mmol/L (3.4-5.0); Sodium 141 mmol/L (137-145)
[2024-03-24] MEDS: IPRATROPIUM BR 0.02% INH SOLN 0.5 MG/2.5 ML VIAL 1 MG INHALATION (13:13)
[2024-03-24] MEDS: ALBUTEROL SULFATE NEB 2.5 MG/3 ML INH 15 MG INHALATION (13:13)
[2024-03-24 13:14] LABS: INR 1.2; Prothrombin Time 15.9 Seconds (11.1-14.7)
[2024-03-24 13:39] LABS: Partial Thromboplastin Time 31.2 Seconds (22.3-36.8)
[2024-03-24 13:41] LABS: Alveolar/Arterial O2 Gradient 324.9 mmHg; Fractional Inspired Oxygen 60 %; HCO3 ABG 33.9 mEq/l (22.0-26.0); Oxygen Content ABG 7.5 %vol (16.0-22.0); PO2 FiO2 Ratio Arterial Blood 0.46 %; Total Hemoglobin 11.1 g/dL (12.0-18.0); pH ABG 7.312 (7.350-7.450)
[2024-03-24 13:43] LABS: Anisocytosis 1+; Platelet Estimate Adequate (Adequate); Schistocytes None Seen
[2024-03-24 14:11] LABS: PCO2 ABG 68.6 mmHg (35.0-45.0)
[2024-03-24 14:12] LABS: Oxygen Saturation ABG 43.8 % (95.0-100.0); PO2 ABG 27.4 mmHg (80.0-100.0)
[2024-03-24 14:13] LABS: Device BIPAP; Oxyhemoglobin 47.9 % THb (90.0-100.0); Site Drawn RIGHT RADIAL
[2024-03-24 14:14] LABS: Expiratory Pressure 7 cmH2O; Inspiratory Pressure 12 cmH2O
[2024-03-24] MEDS: methylPREDNISolone SOD SUCC 125 MG VIAL 40 MG IV PUSH (15:47)
--- NOTE | 2024-03-24 17:40 | ED.SOB ---
HPI - SOB/Dyspnea General Chief Complaint: Shortness of Breath/Dyspnea Stated Complaint: lethargic/hypoxic Time Seen by Provider: 03/24/24 12:52 History of Present Illness HPI Narrative: patient with history of end-stage COPD on home oxygen presents here with increased shortness of breath. Related Data Home Medications ?Medication ?Instructions ?Recorded ?Confirmed ?Last Taken ?Type atorvastatin 80 mg tablet 80 mg PO HS 03/04/22 03/10/24 03/09/24 21:30 History memantine 5 mg tablet 5 mg PO Q12H 03/04/22 03/10/24 03/10/24 08:00 History pramipexole 0.5 mg tablet (Mirapex) 0.5 mg PO HS 03/07/22 03/10/24 03/09/24 21:30 History ferrous sulfate 325 mg (65 mg 325 mg PO Q48H 10/01/22 03/10/24 03/10/24 08:00 History iron) tablet pregabalin 100 mg capsule 100 mg PO Q12H 10/01/22 03/10/24 03/10/24 08:00 History albuterol sulfate 2.5 mg/3 mL 2.5 mg inhalation Q8H PRN Wheezing 10/13/22 03/10/24 03/10/24 History (0.083 %) solution for nebulization cholecalciferol (vitamin D3) 25 25 mcg PO DAILY 10/13/22 03/10/24 03/10/24 08:00 History mcg (1,000 unit) capsule (Vitamin D3) citalopram 20 mg tablet 20 mg PO QHS 02/20/23 03/10/24 03/09/24 21:30 History guaifenesin 600 mg tablet, 600 mg PO Q12HR PRN Congestion 09/01/23 03/10/24 03/10/24 21:38 History extended release 12 hr (Mucus Relief ER) lidocaine 4 % topical patch 1 patch transdermal DAILY PRN Back 09/01/23 03/10/24 Unknown History (Lidocaine Pain Relief) Pain aripiprazole 2 mg tablet 2 mg PO DAILY 09/17/23 03/10/24 03/10/24 08:00 History furosemide 20 mg tablet 20 mg PO DAILY 09/17/23 03/10/24 03/10/24 08:00 History vit C 250 mg-vit E 90 mg-zinc 40 1 tablet PO BID 12/05/23 03/10/24 03/10/24 08:00 History mg-copper 1 [id number] capsule (PreserVision AREDS-2) Allergies Allergy/AdvReac Type Severity Reaction Status Date / Time meperidine (From Demerol) Allergy Unknown Unknown Verified 01/30/24 15:17 rofecoxib (From Vioxx) Allergy Unknown Unknown Verified 12/29/23 19:06 zolpidem (From Ambien) Allergy Unknown Unknown Verified 01/30/24 15:17 chlorpromazine (From AdvReac Unknown Unknown Verified 01/30/24 15:17 Thorazine) diphenhydramine (From AdvReac Unknown Jittery Verified 01/30/24 16:49 Benadryl) Review of Systems Review of Systems: All systems reviewed & are unremarkable except as noted in HPI and below PMFSH Past Medical History Medical History Chronic GERD Chronic obstructive pulmonary disease Chronic pain syndrome Chronic respiratory failure with hypoxia and hypercapnia Deep venous thrombosis Depression with anxiety Heart failure with preserved ejection fraction Hiatal hernia History of tobacco abuse Obstructive sleep apnea Obstructive sleep apnea Paroxysmal atrial fibrillation Surgical History Surgical History History of bladder repair surgery History of breast surgery History of cataract extraction History of cholecystectomy History of colonoscopy History of esophagogastroduodenoscopy History of foot surgery History of fusion of cervical spine History of hernia repair History of hysterectomy History of spinal surgery History of tonsillectomy Family History Family History Father Bladder cancer Mother Hypertension Depression Sibling Asthma Hypertension Depression Grandparent Hypertension Heart disease Cerebrovascular accident Grandparent Alcoholism Lung cancer Social History Social History Social History: Surrogate medical decision maker: Tyrone Bullard, karissa. Code status: Full code. Smoking packs per day: 1 Smoking cigarettes per day: 20.0 Years smoked: 20 Smoking pack-years: 20.00 Smoking status: Former smoker Tobacco type: cigarettes Second hand tobacco smoke exposure: Yes Alcohol intake: never Drinks per week: 1 Substance use: current Substance use type: marijuana Other substance usage details: THC gummy for sleep on occasion Do You Feel Safe in your Home?: Yes Lack of Transportation: No Lack of Food: Never True Current Housing: I Have Housing Concerned About Future Housing: No Difficulty Paying Gas/Electric Bills: No Difficulty Paying for Meds: No Currently Unemployed: No Education: Bachelor's Degree Difficulty w/ Childcare or Family Care: No Additional living arrangements comments: with 3 children. Lives at [facility]. 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 Spiritual care concerns: No Exam Narrative: EXAMINATION OF ORGAN SYSTEMS/BODY AREAS: Constitutional: Vital signs per nursing GENERAL: Dyspneic HEAD: Normal with no signs of head trauma. EYES: EOMI, conjunctiva normal ENT: Hearing grossly intact LUNGS: slightly dyspneic with some wheezing HEART: [Regular rate and rhythm] ABD: [Soft], [nontender to palpation] EXT: Normal range of motion SKIN: [No rashes or lesions.] NEURO: [Alert and oriented x 3. No gross focal sensory or strength deficits.] PSYCH: Normal affect Course Vital Signs Vital signs: Vital Signs Temperature 97.8 F 03/24/24 12:41 Pulse Rate 111 H 03/24/24 12:41 Respiratory Rate 20 03/24/24 12:41 Blood Pressure 158/98 H 03/24/24 12:41 Pulse Oximetry 92 03/24/24 12:41 Oxygen Delivery Nasal Cannula 03/24/24 12:41 Oxygen Flow Rate 4 03/24/24 12:41 Temperature 97.8 F 03/24/24 15:30 Pulse Rate 98 03/24/24 15:30 Respiratory Rate 22 H 03/24/24 15:30 Blood Pressure 158/98 H 03/24/24 15:30 Pulse Oximetry 88 L 03/24/24 15:30 Oxygen Delivery Nasal Cannula 03/24/24 13:30 Oxygen Flow Rate 4 03/24/24 13:30 MDM - SOB/Dyspnea MDM Narrative Medical decision making narrative: patient presenting with shortness of breath, essentially chronic, with End-stage COPD. Started on BiPAP here and breathing treatments, and on re-evaluation she states that she feels much better, she wants to go home. Discussed hospice which she would like to have a arranged, discussed with care coordination who try to arrange hospice with her residential however due to insurance issues, it will take some time to set up. She will be discharged back to her residential at this time. Lab Data 03/24/24 12:50 03/24/24 12:50 Labs: Lab Results 03/24/24 03/24/24 Range/Units 12:50 13:14 WBC 7.0 (4.5-10.0) K/mm3 RBC 3.96 L (4.2-5.4) M/mm3 Hgb 10.4 L (12.0-15.0) g/dL Hct 36.7 L (37.0-47.0) % MCV 92.7 (80-100) fl MCH 26.3 (26-34) pg MCHC 28.3 L (32-36) g/dl RDW 14.3 (11.5-14.5) % Plt Count 174 (150-375) k/mm3 MPV 9.7 (7.4-10.4) fl Immature Gran % (Auto) 0.3 (0-0.5) % Neut % (Auto) 82.0 H (45.5-73.1) % Lymph % (Auto) 10.6 L (18.3-44.2) % [place] % (Auto) 4.7 (2.6-8.5) % Eos % (Auto) 2.3 (0-4.4) % Baso % (Auto) 0.1 L (0.2-1.2) % Lymph # (Auto) 0.74 L (0.9-3.2) K/mm3 [place] # (Auto) 0.3 (0.1-0.6) K/mm3 Eos # (Auto) 0.2 (0-0.3) K/mm3 Baso # (Auto) 0.0 (0.0-0.1) K/mm3 Abs Immat Gran (auto) 0.02 (0.00-0.031) K/mm3 Absolute Neuts (auto) 5.7 (1.3-6.7) K/mm3 Absolute Nucleated RBC 0.000 (0.0-0.012) K/mm3 Nucleated RBC % 0.0 (0.0-0.2) % Platelet Estimate Adequate (Adequate) Anisocytosis 1+ Schistocytes None seen PT 15.9 H (11.1-14.7) Seconds INR 1.2 APTT 31.2 (22.3-36.8) Seconds Expiratory Pressure 7 cmH2O Inspiratory Pressure 12 cmH2O Sodium 141 (137-145) mmol/L Potassium 4.4 (3.4-5.0) mmol/L Chloride 101 (98-107) mmol/L Carbon Dioxide 39 H (22-30) mmol/L Anion Gap 1 L (4-12) mmol/L BUN 14 D (7-17) mg/dL Creatinine 0.80 (0.7-1.0) mg/dL Estim Creat Clear Calc Not Reportable Estimated GFR > 60 (59 - ) Glucose 113 H (65-110) mg/dL Calcium 8.2 L (8.4-10.2) mg/dL Magnesium 1.8 (1.6-2.3) mg/dL Total Bilirubin 0.5 (0.2-1.3) mg/dL AST 33 (14-36) U/L ALT 19 (6-35) U/L Alkaline Phosphatase 92 (38-126) U/L Total Protein 6.0 L (6.3-8.2) g/dL Albumin 3.5 (3.5-5.1) g/dL ABG Data ABG results: 03/24/24 13:14 Puncture Site Right radial ABG pH 7.312 L ABG pCO2 68.6 H* ABG pO2 27.4 L* ABG PO2/FiO2 Ratio 0.46 ABG HCO3 33.9 H ABG O2 Saturation 43.8 L* ABG O2 Content 7.5 L ABG Base Excess 6.0 A-a Gradient 324.9 Oxyhemoglobin 47.9 L* Total Hemoglobin 11.1 L O2 Delivery Device Bipap O2 Liters/Min Not Reportable FiO2 60 Discharge Plan Discharge Clinical Impression: Chronic shortness of breath Patient Disposition: [facility] Care Home/Asst Living Condition: Stable Instructions: Shortness of Breath (ED) Additional Instructions: Please follow up with the PCP; you can always return to the ER for any further issues. Patient Language: Amharic Prescriptions: No Action docusate sodium 100 mg Capsule 100 mg PO BID Qty: 60 0RF mirtazapine [Remeron] 15 mg Tablet 15 mg PO HS Qty: 30 0RF trazodone 50 mg tablet 50 mg PO HS Qty: 30 0RF nitrofurantoin monohyd/m-cryst [Macrobid] 100 mg Capsule 100 mg PO DAILY Qty: 30 0RF Eliquis 5 mg tablet 5 mg PO BID Qty: 60 0RF aripiprazole 2 mg tablet 2 mg PO DAILY furosemide 20 mg tablet 20 mg PO DAILY polyethylene glycol 3350 [Miralax] 17 gram Powder In Packet 17 g PO QAM PRN (Reason: Constipation) Qty: 30 0RF amlodipine [Norvasc] 5 mg Tablet 5 mg PO DAILY Qty: 90 0RF amoxicillin-pot clavulanate 875-125 mg tablet 1 tablet PO Q12H Qty: 1 0RF potassium chloride 10 mEq capsule, extended release 10 meq PO DAILY Qty: 10 0RF oxycodone 5 mg Tablet 5 mg PO Q4H PRN (Reason: Pain Rated 4-6) Qty: 10 0RF atorvastatin 80 mg Tablet 80 mg PO HS memantine 5 mg Tablet 5 mg PO Q12H pramipexole [Mirapex] 0.5 mg Tablet 0.5 mg PO HS ferrous sulfate 325 mg (65 mg iron) tablet 325 mg PO Q48H pregabalin 100 mg capsule 100 mg PO Q12H citalopram 20 mg tablet 20 mg PO QHS lidocaine [Lidocaine Pain Relief] 4 % adhesive patch,medicated 1 patch transdermal DAILY PRN (Reason: Back Pain) Rx Instructions: Apply to back as needed for continued back pain. guaifenesin [Mucus Relief ER] 600 mg tablet extended release 12hr 600 mg PO Q12HR PRN (Reason: Congestion) PreserVision AREDS-2 250-90-40-1 mg Capsule 1 tablet PO BID albuterol sulfate 2.5 mg /3 mL (0.083 %) Solution For Nebulization 2.5 mg INHALATION Q8H PRN (Reason: Wheezing) cholecalciferol (vitamin D3) [Vitamin D3] 25 mcg (1,000 unit) Capsule 25 mcg PO DAILY pantoprazole 40 mg tablet,delayed release (DR/EC) 40 mg PO QAM Qty: 30 0RF Trelegy Ellipta 100-62.5-25 mcg Blister With Device 1 inh INHALATION DAILY Qty: 28 0RF Follow-up/Referrals: Alma,BERE Upton [Primary Care Provider] -
--- NOTE | 2024-03-24 17:41 | PCCCNOTE ---
Called to the ED to speak with pt regarding hospice care. Pt is currently at [facility] and said she can not go on Hospice because she wont have a place to live. I spoke with Layla from [facility] who said they may be able to keep her at the facility on hospice, but they would have to do a financial evaluation first. Pt was unsure if she wanted to start Hospice at this time. I told pt. if she decided that she wanted to, it could be done at any time, even after she is discharged back to [place]. Pt sister was at bedside and verbalized understanding of this. I explained to her that if that is what they wanted to do, they just needed to let the facility know and they could assist with this.
== END 2024-03-24 16:49 ==
PROVIDERS: Emergency Provider Emergency Medicine; PCP Physician Assistant
DX: J96.11 Chronic respiratory failure with hypoxia (principal); J96.12 Chronic respiratory failure with hypercapnia; J44.9 Chronic obstructive pulmonary disease, unspecified; I50.9 Heart failure, unspecified; I48.0 Paroxysmal atrial fibrillation; G47.33 Obstructive sleep apnea (adult) (pediatric); G89.4 Chronic pain syndrome; K44.9 Diaphragmatic hernia without obstruction or gangrene; K21.9 Gastro-esophageal reflux disease without esophagitis; F41.8 Other specified anxiety disorders; Z98.1 Arthrodesis status; Z86.718 Personal history of other venous thrombosis and embolism; Z87.891 Personal history of nicotine dependence; Z98.49 Cataract extraction status, unspecified eye; Z90.49 Acquired absence of other specified parts of digestive tract; Z90.710 Acquired absence of both cervix and uterus; Z79.899 Other long term (current) drug therapy; I45.10 Unspecified right bundle-branch block; R00.0 Tachycardia, unspecified; R94.31 Abnormal electrocardiogram [ECG] [EKG]
CPT/HCPCS: 36415; 36600; 71045; 80053; 82805; 83735; 85018; 85025; 85610; 85730; 93005; 94640; 96374; 99284; J2919

== ENCOUNTER 2024-04-03 04:52 | Inpatient (IN) | payer MEDICARE, SELFPAY ==
[2024-04-03] VITALS (55 sets, daily range): BP systolic 80–149; BP diastolic 36–113; PULSE 68–107; RESP 14–22; TEMP 36.5–37.1; O2SAT 89–100; BMI 33.5
--- NOTE | ~2024-04-03 | XR_ITS ---
EXAMINATION: XR chest 1V portable DATE: 04/03/2024 05:52 INDICATION: Shortness of breath. TECHNIQUE: A single frontal view of the chest was obtained on 2 radiographs. COMPARISON: Chest single view 03/24/2024 FINDINGS: There is worsened elevation of right hemidiaphragm. There are airspace opacities in the low er lung zones. No pleural effusion or pneumothorax. The heart size is normal. There is a moderate-siz ed hiatal hernia. Surgical clips in the right upper quadrant are likely from cholecystectomy. There a re changes of posterior fusion procedure in cervical spine. IMPRESSION: 1. Worsened elevation of right hemidiaphragm with airspace opacities in the lower lung zones, likely atelectasis. 2. Moderate-sized hiatal hernia. Reviewed, dictated and finalized at location A. TANK CLEANER IMPRESSION: 1. Worsened elevation of right hemidiaphragm with airspace opacities in the low er lung zones, likely atelectasis. 2. Moderate-sized hiatal hernia.
--- NOTE | 2024-04-03 05:23 | PC.NURSE ---
RT in room with patient.
[2024-04-03] MEDS: ALBUTEROL SULFATE NEB 2.5 MG/3 ML INH 5 MG INHALATION (05:24)
--- NOTE | 2024-04-03 05:24 | ED.GENADULT ---
HPI - General Adult General Chief complaint: Shortness of Breath/Dyspnea Stated complaint: sob Time Seen by Provider: 04/03/24 05:00 History of Present Illness HPI narrative: 81-year-old female presenting to the emergency department for evaluation for worsening shortness of breath. Patient is normally on 4 L of oxygen by nasal cannula. Patient was started on antibiotics yesterday for pneumonia. EMS was called because the patient was having increased shortness of breath. Patient was saturating approximately 50% her 4 L when EMS arrived. Patient was treated with breathing treatment and oxygen a sanchez increased to 89. Upon arrival emergency department patient states he does feel improved. Related Data Home Medications ?Medication ?Instructions ?Recorded ?Confirmed ?Last Taken ?Type atorvastatin 80 mg tablet 80 mg PO HS 03/04/22 03/10/24 03/09/24 21:30 History memantine 5 mg tablet 5 mg PO Q12H 03/04/22 03/10/24 03/10/24 08:00 History pramipexole 0.5 mg tablet (Mirapex) 0.5 mg PO HS 03/07/22 03/10/24 03/09/24 21:30 History ferrous sulfate 325 mg (65 mg 325 mg PO Q48H 10/01/22 03/10/24 03/10/24 08:00 History iron) tablet pregabalin 100 mg capsule 100 mg PO Q12H 10/01/22 03/10/24 03/10/24 08:00 History albuterol sulfate 2.5 mg/3 mL 2.5 mg inhalation Q8H PRN Wheezing 10/13/22 03/10/24 03/10/24 History (0.083 %) solution for nebulization cholecalciferol (vitamin D3) 25 25 mcg PO DAILY 10/13/22 03/10/24 03/10/24 08:00 History mcg (1,000 unit) capsule (Vitamin D3) citalopram 20 mg tablet 20 mg PO QHS 02/20/23 03/10/24 03/09/24 21:30 History guaifenesin 600 mg tablet, 600 mg PO Q12HR PRN Congestion 09/01/23 03/10/24 03/10/24 21:38 History extended release 12 hr (Mucus Relief ER) lidocaine 4 % topical patch 1 patch transdermal DAILY PRN Back 09/01/23 03/10/24 Unknown History (Lidocaine Pain Relief) Pain aripiprazole 2 mg tablet 2 mg PO DAILY 09/17/23 03/10/24 03/10/24 08:00 History furosemide 20 mg tablet 20 mg PO DAILY 09/17/23 03/10/24 03/10/24 08:00 History vit C 250 mg-vit E 90 mg-zinc 40 1 tablet PO BID 12/05/23 03/10/24 03/10/24 08:00 History mg-copper 1 [id number] capsule (PreserVision AREDS-2) Allergies Allergy/AdvReac Type Severity Reaction Status Date / Time meperidine (From Demerol) Allergy Unknown Unknown Verified 01/30/24 15:17 rofecoxib (From Vioxx) Allergy Unknown Unknown Verified 12/29/23 19:06 zolpidem (From Ambien) Allergy Unknown Unknown Verified 01/30/24 15:17 chlorpromazine (From AdvReac Unknown Unknown Verified 01/30/24 15:17 Thorazine) diphenhydramine (From AdvReac Unknown Jittery Verified 01/30/24 16:49 Benadryl) Review of Systems Review of Systems: All systems reviewed & are unremarkable except as noted in HPI and below PMFSH Past Medical History Medical History Chronic GERD Chronic obstructive pulmonary disease Chronic pain syndrome Chronic respiratory failure with hypoxia and hypercapnia Deep venous thrombosis Depression with anxiety Heart failure with preserved ejection fraction Hiatal hernia History of tobacco abuse Obstructive sleep apnea Obstructive sleep apnea Paroxysmal atrial fibrillation Surgical History Surgical History History of bladder repair surgery History of breast surgery History of cataract extraction History of cholecystectomy History of colonoscopy History of esophagogastroduodenoscopy History of foot surgery History of fusion of cervical spine History of hernia repair History of hysterectomy History of spinal surgery History of tonsillectomy Family History Family History Father Bladder cancer Mother Hypertension Depression Sibling Asthma Hypertension Depression Grandparent Hypertension Heart disease Cerebrovascular accident Grandparent Alcoholism Lung cancer Social History Social History Social History: Surrogate medical decision maker: Tyrone Bullard, karissa. Code status: Full code. Smoking packs per day: 1 Smoking cigarettes per day: 20.0 Years smoked: 20 Smoking pack-years: 20.00 Smoking status: Former smoker Tobacco type: cigarettes Second hand tobacco smoke exposure: Yes Alcohol intake: never Drinks per week: 1 Substance use: current Substance use type: marijuana Other substance usage details: THC gummy for sleep on occasion Do You Feel Safe in your Home?: Yes Lack of Transportation: No Lack of Food: Never True Current Housing: I Have Housing Concerned About Future Housing: No Difficulty Paying Gas/Electric Bills: No Difficulty Paying for Meds: No Currently Unemployed: No Education: Bachelor's Degree Difficulty w/ Childcare or Family Care: No Additional living arrangements comments: with 3 children. Lives at [facility]. 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 Spiritual care concerns: No Exam Narrative: APPEARANCE: Well appearing, no pain, no distress, well-nourished. HEAD: normocephalic, atraumatic. EYES: PERRLA/EOMI, conjunctivae clear. NOSE: Normal no drainage EARS:TMS clear with good light reflex. THROAT: Pharynx clear, no exudate. NECK: Supple. No adenopathy, no masses. RESPIRATORY: Rhonchi bilaterally CARDIOVASCULAR: Regular rate and rhythm without murmurs rubs or gallops. ABDOMINAL: Soft, nontender, nondistended, normal bowel sounds MUSCULOSKELETAL: Moves all extremities. Strength/ROM intact, No edema, No calf tenderness. NEURO: Alert. Cranial nerves II through XII intact. SKIN: Warm, dry. Normal Color Course Vital Signs Vital signs: Vital Signs Temperature 98.0 F 04/03/24 04:53 Pulse Rate 107 H 04/03/24 04:53 Respiratory Rate 16 04/03/24 04:53 Blood Pressure 103/83 04/03/24 04:53 Oxygen Delivery Nasal Cannula 04/03/24 04:53 Oxygen Flow Rate 4 04/03/24 04:53 Temperature 98.0 F 04/03/24 04:53 Pulse Rate 91 04/03/24 07:00 Respiratory Rate 19 04/03/24 07:00 Blood Pressure 149/113 H 04/03/24 06:31 Pulse Oximetry 97 04/03/24 07:00 Oxygen Delivery Non-Rebreather Mask 04/03/24 06:56 Oxygen Flow Rate 15 04/03/24 06:56 Medical Decision Making MDM Narrative Medical decision making narrative: 89-year-old female present to the emergency department for evaluation for worsening shortness of breath. longterm suspected that the patient had pneumonia as so they started her on antibiotics last night. Patient presented due to worsening hypoxia. Patient is afebrile with no leukocytosis and hemoglobin of 9.7. No acute abnormalities on the CMP patient's BNP is 409. Patient was negative for influenza RSV was positive for COVID. Chest x-ray was concerning for infiltrate. Patient was started on Decadron due to COVID with hypoxia and patient was also started on antibiotics, Rocephin and azithromycin for suspected underlying bacterial pneumonia. Case was discussed with hospitalist patient was accepted for admission Prior to going to the floor patient became more short of breath and was having difficulty maintaining her saturations at 6 L. patient was placed on BiPAP prior to going to the IMU. Vital Signs Vital Signs: Vital Signs Temperature 98.0 F 04/03/24 04:53 Pulse Rate 107 H 04/03/24 04:53 Respiratory Rate 16 04/03/24 04:53 Blood Pressure 103/83 04/03/24 04:53 Oxygen Delivery Nasal Cannula 04/03/24 04:53 Oxygen Flow Rate 4 04/03/24 04:53 Temperature 98.0 F 04/03/24 04:53 Pulse Rate 91 04/03/24 07:00 Respiratory Rate 19 04/03/24 07:00 Blood Pressure 149/113 H 04/03/24 06:31 Pulse Oximetry 97 04/03/24 07:00 Oxygen Delivery Non-Rebreather Mask 04/03/24 06:56 Oxygen Flow Rate 15 04/03/24 06:56 Lab Data 04/03/24 05:21 04/03/24 05:21 Labs: Lab Results 04/03/24 Range/Units 05:21 WBC 5.3 (4.5-10.0) K/mm3 RBC 3.64 L (4.2-5.4) M/mm3 Hgb 9.7 L (12.0-15.0) g/dL Hct 33.3 L (37.0-47.0) % MCV 91.5 (80-100) fl MCH 26.6 (26-34) pg MCHC 29.1 L (32-36) g/dl RDW 14.7 H (11.5-14.5) % Plt Count 154 (150-375) k/mm3 MPV 10.2 (7.4-10.4) fl Immature Gran % (Auto) 0.6 H (0-0.5) % Neut % (Auto) 58.9 (45.5-73.1) % Lymph % (Auto) 29.3 (18.3-44.2) % Calhoun % (Auto) 10.2 H (2.6-8.5) % Eos % (Auto) 0.8 (0-4.4) % Baso % (Auto) 0.2 (0.2-1.2) % Lymph # (Auto) 1.55 (0.9-3.2) K/mm3 Calhoun # (Auto) 0.5 (0.1-0.6) K/mm3 Eos # (Auto) 0.0 (0-0.3) K/mm3 Baso # (Auto) 0.0 (0.0-0.1) K/mm3 Abs Immat Gran (auto) 0.03 (0.00-0.031) K/mm3 Absolute Neuts (auto) 3.1 (1.3-6.7) K/mm3 Absolute Nucleated RBC 0.000 (0.0-0.012) K/mm3 Nucleated RBC % 0.0 (0.0-0.2) % Platelet Estimate Adequate (Adequate) Hypochromasia 1+ Poikilocytosis 1+ Anisocytosis 1+ Schistocytes None seen PT 16.4 H (11.1-14.7) Seconds INR 1.3 APTT 34.5 (22.3-36.8) Seconds Sodium 138 (137-145) mmol/L Potassium 3.6 (3.4-5.0) mmol/L Chloride 93 L (98-107) mmol/L Carbon Dioxide > 40 H (22-30) mmol/L Anion Gap (4-12) mmol/L BUN 18 H (7-17) mg/dL Creatinine 0.80 (0.7-1.0) mg/dL Estim Creat Clear Calc Not Reportable Estimated GFR > 60 (59 - ) Glucose 92 (65-110) mg/dL Calcium 7.9 L (8.4-10.2) mg/dL Total Bilirubin 0.4 (0.2-1.3) mg/dL AST 32 (14-36) U/L ALT 14 (6-35) U/L Alkaline Phosphatase 82 (38-126) U/L NT-Pro-B Natriuret Pep 409 H (19.9-100) pg/mL Total Protein 6.0 L (6.3-8.2) g/dL Albumin 3.1 L (3.5-5.1) g/dL Influenza A (RT-PCR) Negative (Negative) Influenza B (RT-PCR) Negative (Negative) RSV (RT-PCR) Negative (Negative) SARS-CoV-2 RNA (RT-PCR) Positive A (Negative) Discharge Plan Discharge Clinical Impression: Hypoxia, Pneumonia, COVID Patient Language: Luxembourger Prescriptions: No Action docusate sodium 100 mg Capsule 100 mg PO BID Qty: 60 0RF mirtazapine [Remeron] 15 mg Tablet 15 mg PO HS Qty: 30 0RF trazodone 50 mg tablet 50 mg PO HS Qty: 30 0RF nitrofurantoin monohyd/m-cryst [Macrobid] 100 mg Capsule 100 mg PO DAILY Qty: 30 0RF Eliquis 5 mg tablet 5 mg PO BID Qty: 60 0RF aripiprazole 2 mg tablet 2 mg PO DAILY furosemide 20 mg tablet 20 mg PO DAILY polyethylene glycol 3350 [Miralax] 17 gram Powder In Packet 17 g PO QAM PRN (Reason: Constipation) Qty: 30 0RF amlodipine [Norvasc] 5 mg Tablet 5 mg PO DAILY Qty: 90 0RF amoxicillin-pot clavulanate 875-125 mg tablet 1 tablet PO Q12H Qty: 1 0RF potassium chloride 10 mEq capsule, extended release 10 meq PO DAILY Qty: 10 0RF oxycodone 5 mg Tablet 5 mg PO Q4H PRN (Reason: Pain Rated 4-6) Qty: 10 0RF atorvastatin 80 mg Tablet 80 mg PO HS memantine 5 mg Tablet 5 mg PO Q12H pramipexole [Mirapex] 0.5 mg Tablet 0.5 mg PO HS ferrous sulfate 325 mg (65 mg iron) tablet 325 mg PO Q48H pregabalin 100 mg capsule 100 mg PO Q12H citalopram 20 mg tablet 20 mg PO QHS lidocaine [Lidocaine Pain Relief] 4 % adhesive patch,medicated 1 patch transdermal DAILY PRN (Reason: Back Pain) Rx Instructions: Apply to back as needed for continued back pain. guaifenesin [Mucus Relief ER] 600 mg tablet extended release 12hr 600 mg PO Q12HR PRN (Reason: Congestion) PreserVision AREDS-2 250-90-40-1 mg Capsule 1 tablet PO BID albuterol sulfate 2.5 mg /3 mL (0.083 %) Solution For Nebulization 2.5 mg INHALATION Q8H PRN (Reason: Wheezing) cholecalciferol (vitamin D3) [Vitamin D3] 25 mcg (1,000 unit) Capsule 25 mcg PO DAILY pantoprazole 40 mg tablet,delayed release (DR/EC) 40 mg PO QAM Qty: 30 0RF Trelegy Ellipta 100-62.5-25 mcg Blister With Device 1 inh INHALATION DAILY Qty: 28 0RF Follow-up/Referrals: Alma,BERE Upton [Primary Care Provider] -
[2024-04-03 05:28] LABS: Basophils Percent Auto 0.2 % (0.2-1.2); Eosinophils Percent Auto 0.8 % (0-4.4); Hematocrit 33.3 % (37.0-47.0); Hemoglobin 9.7 g/dL (12.0-15.0); Immature Granulocyte Absolute 0.03 K/mm3 (0.00-0.031); Immature Granulocyte Percent A 0.6 % (0-0.5); Lymphocytes Absolute Auto 1.55 K/mm3 (0.9-3.2); Lymphocytes Percent Auto 29.3 % (18.3-44.2); Mean Corpuscular HGB Conc 29.1 g/dl (32-36); Mean Corpuscular Hemoglobin 26.6 pg (26-34); Mean Corpuscular Volume 91.5 fl (80-100); Mean Platelet Volume 10.2 fl (7.4-10.4); Monocytes Absolute Auto 0.5 K/mm3 (0.1-0.6); Monocytes Percent Auto 10.2 % (2.6-8.5); Neutrophils Absolute Auto 3.1 K/mm3 (1.3-6.7); Neutrophils Percent Auto 58.9 % (45.5-73.1); Platelet Count Result 154 k/mm3 (150-375); Red Blood Count 3.64 M/mm3 (4.2-5.4); Red Cell Distribution Width 14.7 % (11.5-14.5); White Blood Count 5.3 K/mm3 (4.5-10.0)
[2024-04-03 05:46] LABS: Alanine Aminotransferase 14 U/L (6-35); Albumin Level 3.1 g/dL (3.5-5.1); Alkaline Phosphatase 82 U/L (38-126); Anisocytosis 1+; Aspartate Amino Transferase 32 U/L (14-36); Bilirubin,Total 0.4 mg/dL (0.2-1.3); Blood Urea Nitrogen 18 mg/dL (7-17); Calcium 7.9 mg/dL (8.4-10.2); Carbon Dioxide > 40 mmol/L (22-30); Chloride 93 mmol/L (98-107); Estimated Glomerular Filt Rate > 60; Glucose 92 mg/dL (65-110); Hypochromasia 1+; Platelet Estimate Adequate (Adequate); Potassium 3.6 mmol/L (3.4-5.0); Schistocytes None Seen; Sodium 138 mmol/L (137-145)
[2024-04-03 05:47] LABS: Poikilocytosis 1+
[2024-04-03 05:53] LABS: NT Pro B Type Natriuretic Pept 409 pg/mL (19.9-100)
[2024-04-03 06:03] LABS: Influenza A QL RT-PCR Negative (Negative); Influenza B QL RT-PCR Negative (Negative); RSV RNA, RT-PCR Negative (Negative); SARS-CoV-2 RNA PCR Positive (Negative)
[2024-04-03 06:06] LABS: INR 1.3; Prothrombin Time 16.4 Seconds (11.1-14.7)
[2024-04-03 06:07] LABS: Partial Thromboplastin Time 34.5 Seconds (22.3-36.8)
--- NOTE | 2024-04-03 06:55 | PC.NURSE ---
Patient O2 remains at 87% on 6L via NC. Patient was repositioned and adjusted, instructed to deep breathe, no change in O2 sat. ERP notified, orders placed for bipap.
[2024-04-03] MEDS: AZITHROMYCIN 500 MG/NS 250 ML 500 MG/250 ML BAG 250 MG IVPB (07:22)
[2024-04-03] MEDS: IPRATROPIUM BR 0.02% INH SOLN 0.5 MG/2.5 ML VIAL INHALATION ×3 (08:15→20:52)
[2024-04-03] MEDS: ALBUTEROL SULFATE NEB 2.5 MG/3 ML INH INHALATION ×3 (08:15→20:52)
--- NOTE | 2024-04-03 08:45 | PC.NURSE ---
Dr. Garcia. hospsitalist, contacted d/t pt blood pressures. He states he is not physician relations specialist for ER.
--- NOTE | 2024-04-03 09:00 | PC.NURSE ---
BENNETT Fuentes contacted for additional orders d/t pt blood pressures and complaints of pain.
[2024-04-03] MEDS: dexAMETHasone SOD PHOS INJ 10 MG/ML 1 ML VIAL 6 MG IV PUSH (09:05)
--- NOTE | 2024-04-03 09:26 | P.HP_ITS ---
H&P: HPI History of Present Illness Date/Time: 04/03/24 09:26 Chief Complaint: SOB/dyspnea Narrative: This is an 89-year-old with a significant past medical history of chronic respiratory failure with hypoxia and hypercapnia, former smoker, heart failure with preserved ejection fraction, paroxysmal atrial fibrillation, obstructive sleep apnea, history of DVT, COPD, GERD, depression, anxiety who presented to [facility] with hypoxia and cough that started 2 days ago. Patient denies any fever, chills, nausea, vomiting, diarrhea, abdominal pain, chest pain, shortness a breath. She denies any known sick contacts. She reports back pain today. Workup in the hospital included chest x-ray which showed worsened elevation of right hemidiaphragm with airspace opacities in lower lung zones, moderate size hiatal hernia. Initial labs showed a normal white blood cell count of 5.3, hemoglobin 9.7, proBNP 409. Respiratory panel was positive for COVID. Blood cultures were obtained and pending. Patient was given DuoNeb, Rocephin, azithromycin while in the ED. Patient was started on 100% bipap. Review of Systems Review of Systems: All systems reviewed & are unremarkable except as noted in HPI and below Constitutional: Constitutional: Reports as per HPI and Reports no additional constitutional complaints Eyes: Eyes: Reports as per HPI and Reports no additional eye complaints ENT: Reports system reviewed and no additional complaints, except as documented and Reports as per HPI Cardiovascular: Cardiovascular: Reports as per HPI and Reports no additional cardiovascular complaints Respiratory: Respiratory: Reports as per HPI and Reports no additional respiratory complaints Gastrointestinal: Gastrointestinal: Reports as per HPI and Reports no additional gastrointestinal complaints Genitourinary: Genitourinary: Reports no additional female genitourinary complaints and Reports as per HPI Musculoskeletal: Musculoskeletal: Reports no additional musculoskeletal complaints and Reports as per HPI Integumentary/Breasts: Skin/Breast: Reports system reviewed and no additional complaints, except as docu and Reports as per HPI Neurologic: Reports system reviewed and no additional complaints, except as documented and Reports as per HPI Psychiatric: Psychiatric: Reports no additional psychiatric complaints and Reports as per HPI FOR[facility]LY [facility] Past Medical History Medical History History of tobacco abuse Obstructive sleep apnea Chronic respiratory failure with hypoxia and hypercapnia Heart failure with preserved ejection fraction Paroxysmal atrial fibrillation Chronic pain syndrome Obstructive sleep apnea Deep venous thrombosis Chronic obstructive pulmonary disease Chronic GERD Depression with anxiety Hiatal hernia Surgical History Surgical History History of fusion of cervical spine History of breast surgery History of colonoscopy History of foot surgery History of hernia repair History of esophagogastroduodenoscopy History of spinal surgery History of tonsillectomy History of cataract extraction History of bladder repair surgery History of hysterectomy History of cholecystectomy Family History Family History Father Bladder cancer Mother Hypertension Depression Sibling Asthma Hypertension Depression Grandparent Hypertension Heart disease Cerebrovascular accident Grandparent Alcoholism Lung cancer Social History Social History Social History: Surrogate medical decision maker: Tyrone Bullard, karissa. Code status: Full code. Smoking packs per day: 1 Smoking cigarettes per day: 20.0 Years smoked: 20 Smoking pack-years: 20.00 Smoking status: Former smoker Tobacco type: cigarettes Second hand tobacco smoke exposure: Yes Alcohol intake: never Drinks per week: 1 Substance use: current Substance use type: marijuana Other substance usage details: THC gummy for sleep on occasion Do You Feel Safe in your Home?: Yes Lack of Transportation: No Lack of Food: Never True Current Housing: I Have Housing Concerned About Future Housing: No Difficulty Paying Gas/Electric Bills: No Difficulty Paying for Meds: No Currently Unemployed: No Education: Bachelor's Degree Difficulty w/ Childcare or Family Care: No Additional living arrangements comments: with 3 children. Lives at [facility]. 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 Spiritual care concerns: No Meds Home Medications and Allergies Home Medications ?Medication ?Instructions ?Recorded ?Confirmed ?Type atorvastatin 80 mg tablet 80 mg PO HS 03/04/22 03/10/24 History memantine 5 mg tablet 5 mg PO Q12H 03/04/22 03/10/24 History pramipexole 0.5 mg tablet (Mirapex) 0.5 mg PO HS 03/07/22 03/10/24 History ferrous sulfate 325 mg (65 mg 325 mg PO Q48H 10/01/22 03/10/24 History iron) tablet pregabalin 100 mg capsule 100 mg PO Q12H 10/01/22 03/10/24 History albuterol sulfate 2.5 mg/3 mL 2.5 mg inhalation Q8H PRN Wheezing 10/13/22 03/10/24 History (0.083 %) solution for nebulization cholecalciferol (vitamin D3) 25 25 mcg PO DAILY 10/13/22 03/10/24 History mcg (1,000 unit) capsule (Vitamin D3) citalopram 20 mg tablet 20 mg PO QHS 02/20/23 03/10/24 History fluticasone fur. 100 mcg-umeclid 1 inh inhalation DAILY #28 ea 03/02/23 03/10/24 Rx 62.5 mcg-vilant 25 mcg inhalat.powder (Trelegy Ellipta) pantoprazole 40 mg tablet,delayed 40 mg PO QAM #30 tabs 03/02/23 03/10/24 Rx release guaifenesin 600 mg tablet, 600 mg PO Q12HR PRN Congestion 09/01/23 03/10/24 History extended release 12 hr (Mucus Relief ER) lidocaine 4 % topical patch 1 patch transdermal DAILY PRN Back 09/01/23 03/10/24 History (Lidocaine Pain Relief) Pain aripiprazole 2 mg tablet 2 mg PO DAILY 09/17/23 03/10/24 History furosemide 20 mg tablet 20 mg PO DAILY 09/17/23 03/10/24 History polyethylene glycol 3350 17 gram 17 g PO QAM PRN Constipation #30 ea 09/21/23 03/10/24 Rx oral powder packet (Miralax) docusate sodium 100 mg capsule 100 mg PO BID #60 caps 10/01/23 03/10/24 Rx mirtazapine 15 mg tablet (Remeron) 15 mg PO HS #30 tabs 10/01/23 03/10/24 Rx vit C 250 mg-vit E 90 mg-zinc 40 1 tablet PO BID 12/05/23 03/10/24 History mg-copper 1 ca-kmiqat-uacoah capsule (PreserVision AREDS-2) amlodipine 5 mg tablet (Norvasc) 5 mg PO DAILY #90 tabs 01/06/24 03/10/24 Rx apixaban 5 mg tablet (Eliquis) 5 mg PO BID #60 tabs 01/22/24 03/10/24 Rx nitrofurantoin 100 mg PO DAILY #30 caps 01/22/24 03/10/24 Rx monohydrate/macrocrystals 100 mg capsule (Macrobid) trazodone 50 mg tablet 50 mg PO HS #30 tabs 01/22/24 03/10/24 Rx amoxicillin 875 mg-potassium 1 tablet PO Q12H #1 tablet 03/17/24 Rx clavulanate 125 mg tablet oxycodone 5 mg tablet 5 mg PO Q4H PRN Pain Rated 4-6 #10 03/17/24 Rx tabs potassium chloride 10 mEq 10 meq PO DAILY #10 caps 03/17/24 Rx capsule,extended release Allergies Allergy/AdvReac Type Severity Reaction Status Date / Time meperidine (From Demerol) Allergy Unknown Unknown Verified 01/30/24 15:17 rofecoxib (From Vioxx) Allergy Unknown Unknown Verified 12/29/23 19:06 zolpidem (From Ambien) Allergy Unknown Unknown Verified 01/30/24 15:17 chlorpromazine (From AdvReac Unknown Unknown Verified 01/30/24 15:17 Thorazine) diphenhydramine (From AdvReac Unknown Jittery Verified 01/30/24 16:49 Benadryl) Vital Signs Vital Signs - 24 hr 04/03/24 04:53 04/03/24 04:59 04/03/24 05:08 Temperature 98.0 F Pulse Rate 107 H 88 Respiratory Rate 16 14 Blood Pressure 103/83 Pulse Oximetry 89 L Oxygen Delivery Nasal Cannula Nasal Cannula Oxygen Flow Rate 4 6 04/03/24 05:24 04/03/24 05:30 04/03/24 05:31 Temperature Pulse Rate 97 86 94 Respiratory Rate 18 16 19 Blood Pressure Pulse Oximetry 98 Oxygen Delivery Oxygen Flow Rate 04/03/24 05:45 04/03/24 05:56 04/03/24 06:00 Temperature Pulse Rate 92 93 90 Respiratory Rate 18 19 14 Blood Pressure Pulse Oximetry 90 92 92 Oxygen Delivery Oxygen Flow Rate 04/03/24 06:01 04/03/24 06:15 04/03/24 06:31 Temperature Pulse Rate 93 92 93 Respiratory Rate 18 19 14 Blood Pressure 92/76 L 149/113 H Pulse Oximetry 94 90 89 L Oxygen Delivery Oxygen Flow Rate 04/03/24 06:56 12/22/24 07:00 04/03/24 07:15 Temperature Pulse Rate 91 91 Respiratory Rate 19 18 Blood Pressure Pulse Oximetry 89 L 97 98 Oxygen Delivery Non-Rebreather Mask BiPAP Oxygen Flow Rate 15 04/03/24 07:27 04/03/24 07:51 04/03/24 08:15 Temperature Pulse Rate 87 84 79 Respiratory Rate 17 16 16 Blood Pressure 125/107 H 94/64 L Pulse Oximetry 92 100 Oxygen Delivery Oxygen Flow Rate 04/03/24 08:25 04/03/24 08:57 04/03/24 09:07 Temperature 97.7 F Pulse Rate 83 84 83 Respiratory Rate 18 15 17 Blood Pressure 104/72 92/62 L Pulse Oximetry Oxygen Delivery Oxygen Flow Rate Exam Narrative: General: In no acute distress, well nourished Head: atraumatic, no encephalopathy Eyes: PERRLA, sclera clear ENT: dry mucous membranes, nasal passages clear Neck: supple, no JVD, no adenopathy, trachea midline Cardiac: Normal S1 and S2. RRR, No murmur, gallops or friction rubs, peripheral pulses intact. Respiratory: Lungs course, no adventitious lung sounds, currently on Bipap Gastrointestinal: soft, non-distended, non-tender, normoactive bowel sounds. : voiding dark yellow urine Extremities: moves all extremities well, no edema, good ROM, strength 5/5 Skin: clean, dry, intact. No wounds or lesions. Neuro: Alert and oriented x4, cranial nerves intact, no neuro deficits. Psych: normal mood, normal affect, interactive H&P: Results Labs Labs: Short CBC 04/03/24 Range/Units 05:21 WBC 5.3 (4.5-10.0) K/mm3 Hgb 9.7 L (12.0-15.0) g/dL Hct 33.3 L (37.0-47.0) % Plt Count 154 (150-375) k/mm3 BMP 04/03/24 05:21 Sodium 138 Potassium 3.6 Chloride 93 L Carbon Dioxide > 40 H BUN 18 H Creatinine 0.80 Glucose 92 Calcium 7.9 L Liver Function 04/03/24 Range/Units 05:21 Total Bilirubin 0.4 (0.2-1.3) mg/dL AST 32 (14-36) U/L ALT 14 (6-35) U/L Alkaline Phosphatase 82 (38-126) U/L Albumin 3.1 L (3.5-5.1) g/dL Imaging Chest x-ray: Radiologist's impression: EXAMINATION: XR chest 1V portable DATE: 04/03/2024 05:52 INDICATION: Shortness of breath. TECHNIQUE: A single frontal view of the chest was obtained on 2 radiographs. COMPARISON: Chest single view 03/24/2024 FINDINGS: There is worsened elevation of right hemidiaphragm. There are airspace opacities in the lower lung zones. No pleural effusion or pneumothorax. The heart size is normal. There is a moderate-sized hiatal hernia. Surgical clips in the right upper quadrant are likely from cholecystectomy. There are changes of posterior fusion procedure in cervical spine. IMPRESSION: 1. Worsened elevation of right hemidiaphragm with airspace opacities in the lower lung zones, likely atelectasis. 2. Moderate-sized hiatal hernia. Reviewed, dictated and finalized at location A. CIATE CREATIVE DIRECTOR Assessment and Plan Assessment and plan (1) Acute and chronic respiratory failure with hypoxia: Code(s): J96.21 - Acute and chronic respiratory failure with hypoxia Status: Acute Assessment and Plan: * Chest x-ray showing worsened elevation right hemidiaphragm with airspace opacities in the lower lung zones * Initial white blood cell count 5.3, afebrile * His found to be COVID positive * Treating for bacterial pneumonia with Rocephin and azithromycin * Will check MRSA and procalcitonin * Continue DuoNebs * Bipap settings 14/7 100%--FIO2 decreased to 50% after ABG * ABG 7.352, pCO2 74.2, pO2 138.1, HCO3 40.2 (2) COVID: Code(s): U07.1 - COVID-19 Status: Acute Assessment and Plan: * Respiratory panel positive for COVID * supportive care * started on Decadron and Remdesivir (3) Pneumonia: Code(s): J18.9 - Pneumonia, unspecified organism Status: Acute Assessment and Plan: * Given Rocephin and azithromycin while in ER * Will discontinue Rocephin as this is likely viral pneumonia * Will continue azithromycin for coverage of COPD * Blood cultures obtained * Respiratory panel positive for COVID * Procal 0.1 (4) Hypertension: Qualifiers: Hypertension type: primary hypertension Qualified Code(s): I10 - Essential (primary) hypertension Code(s): I10 - Essential (primary) hypertension Status: Chronic Assessment and Plan: * Blood pressure ranging 92/62-120/76 * B/p medication on hold for now (5) Paroxysmal atrial fibrillation: Code(s): I48.0 - Paroxysmal atrial fibrillation Status: Acute Assessment and Plan: * continue Eliquis (6) Hyperlipidemia: Code(s): E78.5 - Hyperlipidemia, unspecified Status: Acute Assessment and Plan: * Continue atorvastatin (7) Heart failure with preserved ejection fraction: Code(s): I50.30 - Unspecified diastolic (congestive) heart failure Status: Acute Assessment and Plan: * Hold Lasix due to low blood pressure * Will need some diuresis once blood pressure improves (8) COPD (chronic obstructive pulmonary disease): Qualifiers: COPD type: COPD with acute exacerbation Qualified Code(s): J44.1 - Chronic obstructive pulmonary disease with (acute) exacerbation Code(s): J44.9 - Chronic obstructive pulmonary disease, unspecified Status: Acute Assessment and Plan: * Continue Bipap for now, will switch to AVAPS tomorrow once CO2 is at baseline * Continue Duoneb and Decadron * Azithromycin for prophylactic coverage Quality VTE Prophylaxis VTE prophylaxis: pharmacologic ordered
[2024-04-03 10:59] LABS: Procalcitonin 0.1 ng/mL
[2024-04-03] MEDS: REMDESIVIR 200 MG/NS 250 ML 200 MG/250 ML BAG 250 MG IVPB (11:04)
[2024-04-03] MEDS: APIXABAN 5 MG TABLET PO ×2 (12:32→22:05)
[2024-04-03] MEDS: guaiFENesin 12 HR 600 MG TABCR 1200 MG PO ×2 (12:32→22:04)
[2024-04-03] MEDS: ACETAMINOPHEN 325 MG TABLET 650 MG PO (12:36)
[2024-04-03 14:26] LABS: Alveolar/Arterial O2 Gradient 596.5 mmHg; Base Excess ABG 12.3 mEq/l (+/-2.0); Fractional Inspired Oxygen 100 %; HCO3 ABG 40.2 mEq/l (22.0-26.0); Oxygen Content ABG 14.3 %vol (16.0-22.0); Oxygen Saturation ABG 98.5 % (95.0-100.0); Oxyhemoglobin 98.1 % THb (90.0-100.0); PO2 ABG 138.1 mmHg (80.0-100.0); PO2 FiO2 Ratio Arterial Blood 1.38 %; Total Hemoglobin 10.2 g/dL (12.0-18.0); pH ABG 7.352 (7.350-7.450)
[2024-04-03 14:28] LABS: Device BIPAP; Expiratory Pressure 7 cmH2O; Inspiratory Pressure 14 cmH2O; PCO2 ABG 74.2 mmHg (35.0-45.0); Site Drawn LEFT BRACHIAL
[2024-04-03] MEDS: MORPHINE SULFATE (*CRX) 2 MG/ML INJ IV PUSH ×2 (16:45→22:05)
[2024-04-03 17:07] LABS: Add Urine Microscopic? YES; Appearance Urine Cloudy (Clear); Bacteria Urine 4+ /hpf; Bilirubin Urine Negative (Negative); Blood Urine Non-Hemolyzed Trace (Negative); Color Urine Yellow (Yellow); Glucose Urine UA Negative (Negative); Ketones Urine Negative (Negative); Leukocyte Esterase Ur 2+ LEU/UL (Negative); Nitrate Urine Positive (Negative); Non Pathogenic Casts 0-2; Protein Urine 1+ mg/dL (Negative); Specific Grav Ur 1.021 (1.001-1.035); Squamous Epithelial Cell Urine None Seen /hpf (Few); Urobilinogen Urine 0.2 mg/dL (<2.0); WBC Urine >100 /hpf (0-3)
--- NOTE | 2024-04-03 17:48 | PC.NURSE ---
Pt son called to update on pt bed status
[2024-04-03] MEDS: ATORVASTATIN 40 MG TABLET 80 MG PO (22:04)
[2024-04-04] VITALS (16 sets, daily range): BP systolic 113–142; BP diastolic 70–80; PULSE 68–89; RESP 18–24; TEMP 36.6–37; O2SAT 92–97
[2024-04-04] MEDS: IPRATROPIUM BR 0.02% INH SOLN 0.5 MG/2.5 ML VIAL INHALATION ×3 (02:39→13:41)
[2024-04-04] MEDS: ALBUTEROL SULFATE NEB 2.5 MG/3 ML INH INHALATION ×3 (02:39→13:41)
[2024-04-04 02:48] LABS: MRSA (PCR) NOT DETECTED (NOT DETECTE)
[2024-04-04] MEDS: MORPHINE SULFATE (*CRX) 2 MG/ML INJ IV PUSH ×2 (05:13→09:20)
[2024-04-04] MEDS: AZITHROMYCIN 500 MG/NS 250 ML 500 MG/250 ML BAG 250 MG IVPB (05:14)
[2024-04-04 05:17] LABS: Base Excess ABG 8.1 mEq/l (+/-2.0); Fractional Inspired Oxygen 36 %; Oxygen Saturation ABG 91.4 % (95.0-100.0); PCO2 ABG 54.5 mmHg (35.0-45.0); PO2 ABG 61.5 mmHg (80.0-100.0); PO2 FiO2 Ratio Arterial Blood 1.71 %; Total Hemoglobin 10.2 g/dL (12.0-18.0); pH ABG 7.413 (7.350-7.450)
[2024-04-04 05:19] LABS: Modified Allen's Test Pass; Site Drawn LEFT RADIAL
[2024-04-04 05:20] LABS: Device NASAL CANNULA
[2024-04-04 05:23] LABS: Basophils Percent Auto 0.2 % (0.2-1.2); Hematocrit 32.3 % (37.0-47.0); Hemoglobin 9.4 g/dL (12.0-15.0); Immature Granulocyte Absolute 0.03 K/mm3 (0.00-0.031); Immature Granulocyte Percent A 0.6 % (0-0.5); Immature Platelet Fraction Pct 3.3 % (0.9-11.2); Lymphocytes Absolute Auto 1.42 K/mm3 (0.9-3.2); Lymphocytes Percent Auto 30.7 % (18.3-44.2); Mean Corpuscular HGB Conc 29.1 g/dl (32-36); Mean Corpuscular Hemoglobin 26.4 pg (26-34); Mean Corpuscular Volume 90.7 fl (80-100); Mean Platelet Volume 9.8 fl (7.4-10.4); Monocytes Absolute Auto 0.4 K/mm3 (0.1-0.6); Monocytes Percent Auto 8.2 % (2.6-8.5); Neutrophils Absolute Auto 2.8 K/mm3 (1.3-6.7); Neutrophils Percent Auto 60.3 % (45.5-73.1); Platelet Count Result 140 k/mm3 (150-375); Red Blood Count 3.56 M/mm3 (4.2-5.4); Red Cell Distribution Width 14.5 % (11.5-14.5); White Blood Count 4.6 K/mm3 (4.5-10.0)
[2024-04-04 05:47] LABS: Alanine Aminotransferase 18 U/L (6-35); Alkaline Phosphatase 95 U/L (38-126); Aspartate Amino Transferase 36 U/L (14-36); Bilirubin,Total 0.4 mg/dL (0.2-1.3); Blood Urea Nitrogen 22 mg/dL (7-17); Calcium 8.2 mg/dL (8.4-10.2); Carbon Dioxide > 40 mmol/L (22-30); Chloride 95 mmol/L (98-107); Estimated Glomerular Filt Rate 59; Glucose 92 mg/dL (65-110); Potassium 3.8 mmol/L (3.4-5.0); Sodium 137 mmol/L (137-145)
--- NOTE | 2024-04-04 05:59 | PC.NURSE ---
Patient stated to this RN that she would like to talk to her son about hospice today 04/04. Patient states I'm just so tired of fighting and I don't want to suffer anymore. Patient asked if RN would notify son of her decision. This RN notified Tyrone (Son/POA) of patient's decision. Patient refusing IV antibiotics at this time. Will continue to monitor.
[2024-04-04 06:02] LABS: Platelet Estimate Slightly Decreased (Adequate)
[2024-04-04 06:03] LABS: Anisocytosis 1+; Hypochromasia 1+; Poikilocytosis 1+
[2024-04-04 06:05] LABS: Crenated RBC 1+; Ovalocytes 1+; Schistocytes None Seen
[2024-04-04] MEDS: guaiFENesin 12 HR 600 MG TABCR 1200 MG PO (09:20)
[2024-04-04] MEDS: APIXABAN 5 MG TABLET PO (09:21)
--- NOTE | 2024-04-04 10:17 | P.PNIM_ITS ---
Progress Note: A&P Assessment and Plan (1) Acute and chronic respiratory failure with hypoxia: Code(s): J96.21 - Acute and chronic respiratory failure with hypoxia Status: Acute Assessment and Plan: * Chest x-ray showing worsened elevation right hemidiaphragm with airspace opacities in the lower lung zones * Initial white blood cell count 5.3, afebrile * His found to be COVID positive * Treating for bacterial pneumonia with Rocephin and azithromycin * Will check MRSA and procalcitonin * Continue DuoNebs * Bipap settings 14/7 100%--FIO2 decreased to 50% after ABG * ABG 7.352, pCO2 74.2, pO2 138.1, HCO3 40.2 (2) COVID: Code(s): U07.1 - COVID-19 Status: Acute Assessment and Plan: * Respiratory panel positive for COVID * supportive care * started on Decadron and Remdesivir (3) Pneumonia: Code(s): J18.9 - Pneumonia, unspecified organism Status: Acute Assessment and Plan: * Given Rocephin and azithromycin while in ER * Will discontinue Rocephin as this is likely viral pneumonia * Will continue azithromycin for coverage of COPD * Blood cultures obtained * Respiratory panel positive for COVID * Procal 0.1 (4) Hypertension: Qualifiers: Hypertension type: primary hypertension Qualified Code(s): I10 - Essential (primary) hypertension Code(s): I10 - Essential (primary) hypertension Status: Chronic Assessment and Plan: * Blood pressure ranging 92/62-120/76 * B/p medication on hold for now (5) Paroxysmal atrial fibrillation: Code(s): I48.0 - Paroxysmal atrial fibrillation Status: Acute Assessment and Plan: * continue Eliquis (6) Hyperlipidemia: Code(s): E78.5 - Hyperlipidemia, unspecified Status: Acute Assessment and Plan: * Continue atorvastatin (7) Heart failure with preserved ejection fraction: Code(s): I50.30 - Unspecified diastolic (congestive) heart failure Status: Acute Assessment and Plan: * Hold Lasix due to low blood pressure * Will need some diuresis once blood pressure improves (8) COPD (chronic obstructive pulmonary disease): Qualifiers: COPD type: COPD with acute exacerbation Qualified Code(s): J44.1 - Chronic obstructive pulmonary disease with (acute) exacerbation Code(s): J44.9 - Chronic obstructive pulmonary disease, unspecified Status: Acute Assessment and Plan: * Continue Bipap for now, will switch to AVAPS tomorrow once CO2 is at baseline * Continue Duoneb and Decadron * Azithromycin for prophylactic coverage Time Spent With Patient Time with patient: 25 - 35 minutes Subjective Date/time seen: 04/04/24 10:17 Interval history: This is an 89-year-old with a significant past medical history of chronic respiratory failure with hypoxia and hypercapnia, former smoker, heart failure with preserved ejection fraction, paroxysmal atrial fibrillation, obstructive sleep apnea, history of DVT, COPD, GERD, depression, anxiety who presented to the hospital with hypoxia and cough that started 2 days ago. Patient denies any fever, chills, nausea, vomiting, diarrhea, abdominal pain, chest pain, shortness a breath. She denies any known sick contacts. She reports back pain today. Workup in the hospital included chest x-ray which showed worsened elevation of right hemidiaphragm with airspace opacities in lower lung zones, moderate size hiatal hernia. Initial labs showed a normal white blood cell count of 5.3, hemoglobin 9.7, proBNP 409. Respiratory panel was positive for COVID. Blood cultures were obtained and pending. Patient was given DuoNeb, Rocephin, azithromycin while in the ED. Patient was started on 100% bipap. Review of Systems Review of Systems: All systems reviewed & are unremarkable except as noted in HPI and below Constitutional: Constitutional: Reports as per HPI and Reports no additional constitutional complaints Eyes: Eyes: Reports as per HPI and Reports no additional eye complaints ENT: Reports system reviewed and no additional complaints, except as documented and Reports as per HPI Cardiovascular: Cardiovascular: Reports as per HPI and Reports no additional cardiovascular complaints Respiratory: Respiratory: Reports as per HPI and Reports no additional resp iratory complaints Gastrointestinal: Gastrointestinal: Reports as per HPI and Reports no additional gastrointestinal complaints Genitourinary: Genitourinary: Reports no additional female genitourinary complaints and Reports as per HPI Musculoskeletal: Musculoskeletal: Reports no additional musculoskeletal complaints and Reports as per HPI Integumentary/Breasts: Skin/Breast: Reports system reviewed and no additional complaints, except as docu and Reports as per HPI Neurologic: Reports system reviewed and no additional complaints, except as documented and Reports as per HPI Psychiatric: Psychiatric: Reports no additional psychiatric complaints and Reports as per HPI Exam Narrative: General: In no acute distress, well nourished Cardiac: Normal S1 and S2. RRR, No murmur, gallops or friction rubs, peripheral pulses intact. Respiratory: Lungs course, no adventitious lung sounds, currently on Bipap Gastrointestinal: soft, non-distended, non-tender, normoactive bowel sounds. :bermudez in place Neuro: Alert and oriented x4 Objective Data Vital Signs Vital Signs: Vital Signs - 24 hr 04/03/24 10:20 04/03/24 10:40 04/03/24 10:50 Temperature Pulse Rate 81 81 77 Respiratory Rate 19 17 14 Blood Pressure 103/62 98/66 L 80/61 L Pulse Oximetry 99 99 99 Oxygen Delivery Oxygen Flow Rate Fraction of Inspired Oxygen 04/03/24 11:00 04/03/24 11:20 04/03/24 11:29 Temperature Pulse Rate 74 72 71 Respiratory Rate 16 18 20 Blood Pressure 80/58 L 84/61 L Pulse Oximetry 99 99 99 Oxygen Delivery BiPAP Oxygen Flow Rate Fraction of Inspired Oxygen 04/03/24 11:30 04/03/24 11:40 04/03/24 11:50 Temperature Pulse Rate 82 80 80 Respiratory Rate 19 18 16 Blood Pressure 119/68 115/73 100/62 Pulse Oximetry 100 100 99 Oxygen Delivery Oxygen Flow Rate Fraction of Inspired Oxygen 04/03/24 12:00 04/03/24 12:10 04/03/24 12:20 Temperature Pulse Rate 81 78 82 Respiratory Rate 17 19 15 Blood Pressure 106/64 103/67 108/57 L Pulse Oximetry 100 99 99 Oxygen Delivery Oxygen Flow Rate Fraction of Inspired Oxygen 04/03/24 12:40 04/03/24 13:40 04/03/24 15:07 Temperature Pulse Rate 83 78 75 Respiratory Rate 18 19 17 Blood Pressure 120/76 105/64 Pulse Oximetry 98 98 95 Oxygen Delivery BiPAP Oxygen Flow Rate Fraction of Inspired Oxygen 04/03/24 16:15 04/03/24 16:25 04/03/24 16:54 Temperature Pulse Rate 75 78 79 Respiratory Rate 18 18 18 Blood Pressure Pulse Oximetry 97 Oxygen Delivery BiPAP Oxygen Flow Rate Fraction of Inspired Oxygen 04/03/24 18:20 04/03/24 20:10 04/03/24 20:20 Temperature 98.2 F Pulse Rate 72 89 84 Respiratory Rate 20 17 17 Blood Pressure 100/70 115/84 Pulse Oximetry 98 100 99 Oxygen Delivery BiPAP Oxygen Flow Rate Fraction of Inspired Oxygen 04/03/24 20:30 04/03/24 20:52 04/03/24 22:00 Temperature Pulse Rate 91 83 91 Respiratory Rate 17 17 Blood Pressure Pulse Oximetry 99 Oxygen Delivery BiPAP Oxygen Flow Rate Fraction of Inspired Oxygen 04/03/24 23:30 04/03/24 23:30 04/04/24 00:00 Temperature 98.7 F Pulse Rate 82 68 70 Respiratory Rate 21 H 18 Blood Pressure 95/54 L Pulse Oximetry 96 97 Oxygen Delivery BiPAP Oxygen Flow Rate Fraction of Inspired Oxygen 50 04/04/24 00:05 04/04/24 02:00 04/04/24 02:39 Temperature Pulse Rate 68 72 Respiratory Rate 18 Blood Pressure Pulse Oximetry 97 95 Oxygen Delivery BiPAP High Flow Nasal Cannula Oxygen Flow Rate 3 Fraction of Inspired Oxygen 04/04/24 02:39 04/04/24 02:49 04/04/24 04:00 Temperature Pulse Rate 75 71 81 Respiratory Rate Blood Pressure Pulse Oximetry Oxygen Delivery Oxygen Flow Rate Fraction of Inspired Oxygen 04/04/24 04:04 04/04/24 04:25 04/04/24 06:00 Temperature 98.6 F Pulse Rate 77 77 81 Respiratory Rate 20 20 Blood Pressure 113/70 Pulse Oximetry 92 92 Oxygen Delivery High Flow Nasal Cannula Oxygen Flow Rate 4 Fraction of Inspired Oxygen 04/04/24 08:00 04/04/24 08:58 04/04/24 08:58 Temperature 98.1 F Pulse Rate 85 74 Respiratory Rate 24 H 20 Blood Pressure 142/78 H Pulse Oximetry 97 96 Oxygen Delivery Nasal Cannula Oxygen Flow Rate 4 Fraction of Inspired Oxygen 04/04/24 09:03 Temperature Pulse Rate 77 Respiratory Rate 20 Blood Pressure Pulse Oximetry Oxygen Delivery Oxygen Flow Rate Fraction of Inspired Oxygen Intake/Output Intake/Output: Intake & Output 04/01/24 04/02/24 04/03/24 04/04/24 23:59 23:59 23:59 23:59 Intake Total 550 692.5 Output Total 400 Balance 550 292.5 Meds/Results Medications: Active Medications Generic Name Dose Route Start Last Admin Trade Name Freq PRN Reason Stop Dose Admin Acetaminophen 650 mg 04/03/24 09:55 04/03/24 12:36 Acetaminophen 325 Mg Tablet PO 650 mg Q4H PRN Administration Mild Pain (1-3) or Fever Albuterol 2.5 mg 04/03/24 08:00 04/04/24 08:57 Albuterol Sulfate Neb 2.5 Mg/3 Ml Inh INHALATION 2.5 mg Q6HRT MASTER Administration Apixaban 5 mg 04/03/24 21:00 04/04/24 09:21 Apixaban 5 Mg Tablet PO 5 mg Q12HR MASTER Administration Atorvastatin Calcium 80 mg 04/03/24 21:00 04/03/24 22:04 Atorvastatin 40 Mg Tablet PO 80 mg HS MASTER Administration Dexamethasone Sodium Phosphate 6 mg 04/03/24 09:00 04/04/24 09:17 Dexamethasone Sod Phos Inj 10 Mg/Ml 1 Ml Vial IV PUSH 04/12/24 09:01 Not Given DAILY MASTER Guaifenesin 1,200 mg 04/03/24 10:40 04/04/24 09:20 Guaifenesin 12 Hr 600 Mg Tabcr PO 1,200 mg Q12HR MASTER Administration Azithromycin 500 mg in 250 mls @ 250 mls/hr 04/04/24 06:00 04/04/24 06:05 Zithromax IVPB 0 mls/hr Q24H MASTER Infusion Remdesivir 100 mg in 250 mls @ 250 mls/hr 04/04/24 10:00 04/04/24 09:17 IVPB 04/07/24 10:59 Not Given Q24H MASTER Ipratropium [place] 0.5 mg 04/03/24 08:00 04/04/24 08:57 Ipratropium Br 0.02% Inh Soln 0.5 Mg/2.5 Ml Vial INHALATION 0.5 mg Q6HRT MASTER Administration Morphine Sulfate 2 mg 04/03/24 15:11 04/04/24 09:20 Morphine Sulfate (*Crx) 2 Mg/Ml Inj IV PUSH 2 mg Q4H PRN Administration Pain Rated 7-10 Ondansetron HCl 4 mg 04/03/24 09:55 Ondansetron Inj 4 Mg/2 Ml Vial IV PUSH Q6H PRN Nausea And Vomiting Radiology Results: ITS Impressions Chest X-Ray 04/03/24 05:58 IMPRESSION: 1. Worsened elevation of right hemidiaphragm with airspace opacities in the lower lung zones, likely atelectasis. 2. Moderate-sized hiatal hernia. Labs Labs: Laboratory Results - last 24 hr 04/03/24 04/03/24 04/03/24 05:21 14:20 16:58 WBC RBC Hgb Hct MCV MCH MCHC RDW Plt Count MPV Immature Gran % (Auto) Neut % (Auto) Lymph % (Auto) [place] % (Auto) Eos % (Auto) Baso % (Auto) Lymph # (Auto) [place] # (Auto) Eos # (Auto) Baso # (Auto) Abs Immat Gran (auto) Absolute Neuts (auto) Absolute Nucleated RBC Nucleated RBC % Platelet Estimate % Immature Plt Fraction Hypochromasia Poikilocytosis Anisocytosis Ovalocytes Crenated Cell Schistocytes Puncture Site Left brachial ABG pH 7.352 ABG pCO2 74.2 H* ABG pO2 138.1 H ABG PO2/FiO2 Ratio 1.38 ABG HCO3 40.2 H ABG O2 Saturation 98.5 ABG O2 Content 14.3 L ABG Base Excess 12.3 A-a Gradient 596.5 Oxyhemoglobin 98.1 Total Hemoglobin 10.2 L O2 Delivery Device Bipap O2 Liters/Min Not Reportable FiO2 100 Expiratory Pressure 7 Inspiratory Pressure 14 Sodium Potassium Chloride Carbon Dioxide Anion Gap BUN Creatinine Estim Creat Clear Calc Estimated GFR Glucose Calcium Total Bilirubin AST ALT Alkaline Phosphatase Total Protein Albumin Procalcitonin 0.1 Urine Color Yellow Urine Appearance Cloudy H Urine pH 6.0 Ur Specific [place] 1.021 Urine Protein 1+ H Urine Glucose (UA) Negative Urine Ketones Negative Ur Blood (Man) Non-hemolyzed trace H Urine Nitrate Positive H Urine Bilirubin Negative Urine Urobilinogen 0.2 Leukocyte Esterase Rfl 2+ H Urine RBC 6-10 H Urine WBC >100 H Ur Squamous Epith Cells None seen Urine Bacteria 4+ H Urine Casts 0-2 Nasal MRSA (PCR) 04/03/24 04/04/24 04/04/24 23:29 04:32 05:03 WBC 4.6 RBC 3.56 L Hgb 9.4 L Hct 32.3 L MCV 90.7 MCH 26.4 MCHC 29.1 L RDW 14.5 Plt Count 140 L MPV 9.8 Immature Gran % (Auto) 0.6 H Neut % (Auto) 60.3 Lymph % (Auto) 30.7 [place] % (Auto) 8.2 Eos % (Auto) 0.0 Baso % (Auto) 0.2 Lymph # (Auto) 1.42 [place] # (Auto) 0.4 Eos # (Auto) 0.0 Baso # (Auto) 0.0 Abs Immat Gran (auto) 0.03 Absolute Neuts (auto) 2.8 Absolute Nucleated RBC 0.000 Nucleated RBC % 0.0 Platelet Estimate Slightly decreased % Immature Plt Fraction 3.3 Hypochromasia 1+ Poikilocytosis 1+ Anisocytosis 1+ Ovalocytes 1+ Crenated Cell 1+ Schistocytes None seen Puncture Site Left radial ABG pH 7.413 ABG pCO2 54.5 H ABG pO2 61.5 L ABG PO2/FiO2 Ratio 1.71 ABG HCO3 34.0 H ABG O2 Saturation 91.4 L ABG O2 Content 13.0 L ABG Base Excess 8.1 A-a Gradient 132.0 Oxyhemoglobin 90.0 Total Hemoglobin 10.2 L O2 Delivery Device Nasal cannula O2 Liters/Min 4.0 FiO2 36 Expiratory Pressure Inspiratory Pressure Sodium 137 Potassium 3.8 Chloride 95 L Carbon Dioxide > 40 H Anion Gap BUN 22 H Creatinine 0.90 Estim Creat Clear Calc Not Reportable Estimated GFR 59 Glucose 92 Calcium 8.2 L Total Bilirubin 0.4 AST 36 ALT 18 Alkaline Phosphatase 95 Total Protein 6.0 L Albumin 3.0 L Procalcitonin Urine Color Urine Appearance Urine pH Ur Specific [place] Urine Protein Urine Glucose (UA) Urine Ketones Ur Blood (Man) Urine Nitrate Urine Bilirubin Urine Urobilinogen Leukocyte Esterase Rfl Urine RBC Urine WBC Ur Squamous Epith Cells Urine Bacteria Urine Casts Nasal MRSA (PCR) Not detected Quality VTE Prophylaxis VTE prophylaxis: pharmacologic ordered
[2024-04-04] MEDS: PANTOPRAZOLE 40 MG TABLET PO (11:37)
[2024-04-04] MEDS: PREGABALIN (*CRX) 50 MG CAPSULE 100 MG PO (11:37)
[2024-04-04] MEDS: amLODIPine BESYLATE 5 MG TABLET PO (11:37)
[2024-04-04] MEDS: FERROUS SULFATE 325 MG TABLET DR PO (11:37)
[2024-04-04] MEDS: ARIPiprazole 2 MG TABLET PO (11:37)
[2024-04-04] MEDS: CHOLECALCIFEROL 1,000 UNITS TABLET 1000 UNITS PO (11:37)
[2024-04-04] MEDS: MEMANTINE 5 MG TABLET PO (11:37)
[2024-04-04] MEDS: LORazepam INJ (*CRX) 2 MG/ML VIAL 1 MG IV PUSH (14:27)
--- NOTE | 2024-04-04 15:06 | P.DS_ITS ---
DS: Admitting Diagnosis Discharge Date 04/04/24 Admitting Diagnosis Acute on chronic respiratory failure with hypoxia COVID Pneumonia HTN Paroxysmal atrial fibrillation Heart failure with preserved EF Hyperlipidemia COPD DS: Discharge Diagnosis Discharge Diagnosis (1) Acute and chronic respiratory failure with hypoxia: Code(s): J96.21 - Acute and chronic respiratory failure with hypoxia Status: Acute (2) COVID: Code(s): U07.1 - COVID-19 Status: Acute (3) Pneumonia: Code(s): J18.9 - Pneumonia, unspecified organism Status: Acute (4) Hypertension: Qualifiers: Hypertension type: primary hypertension Qualified Code(s): I10 - Essential (primary) hypertension Code(s): I10 - Essential (primary) hypertension Status: Chronic (5) Paroxysmal atrial fibrillation: Code(s): I48.0 - Paroxysmal atrial fibrillation Status: Acute (6) Hyperlipidemia: Code(s): E78.5 - Hyperlipidemia, unspecified Status: Acute (7) Heart failure with preserved ejection fraction: Code(s): I50.30 - Unspecified diastolic (congestive) heart failure Status: Acute (8) COPD (chronic obstructive pulmonary disease): Qualifiers: COPD type: COPD with acute exacerbation Qualified Code(s): J44.1 - Chronic obstructive pulmonary disease with (acute) exacerbation Code(s): J44.9 - Chronic obstructive pulmonary disease, unspecified Status: Acute DS: Summary Hospital Course Reason for hospitalization: Acute on chronic respiratory failure with hypoxia COVID Pneumonia HTN Paroxysmal atrial fibrillation Heart failure with preserved EF Hyperlipidemia COPD Hospital Course: This is an 89-year-old with a significant past medical history of chronic respiratory failure with hypoxia and hypercapnia, former smoker, heart failure with preserved ejection fraction, paroxysmal atrial fibrillation, obstructive sleep apnea, history of DVT, COPD, GERD, depression, anxiety who presented to the hospital with hypoxia and cough that started 2 days ago. Patient denies any fever, chills, nausea, vomiting, diarrhea, abdominal pain, chest pain, shortness a breath. She denies any known sick contacts. She reports back pain today. Workup in the hospital included chest x-ray which showed worsened elevation of right hemidiaphragm with airspace opacities in lower lung zones, moderate size hiatal hernia. Initial labs showed a normal white blood cell count of 5.3, hemoglobin 9.7, proBNP 409. Respiratory panel was positive for COVID. Blood cultures were obtained and pending. Patient was given DuoNeb, Rocephin, azithromycin while in the ED. Patient was started on 100% bipap. Patient decided to stop all active treatment and wants to do comfort measures only. She had a discussion with her family last night and wants to be discharged back to [facility] with hospice care. Comfort orders placed at patient request. Patient is stable for discharge at this time. Final diagnosis: Acute on chronic respiratory failure with hypoxia, COVID, Pneumonia Status at Discharge Cognitive/behavioral status at discharge: Alert and oriented x3 Functional status at discharge: independent ambulation Overall status at discharge: patient is progressing back to baseline Time Spent with Patient Time attestation: Total time spent providing and/or coordinating discharge services: Time spent: Greater than 30 minutes Exam Narrative: General: In no acute distress, well nourished Cardiac: Normal S1 and S2. RRR, No murmur, gallops or friction rubs, peripheral pulses intact. Respiratory: Lungs course, no adventitious lung sounds, currently on 4L NC Gastrointestinal: soft, non-distended, non-tender, normoactive bowel sounds. :bermudez in place Neuro: Alert and oriented x4 DS: Data Data Completed and Pending Completed studies during hospitalization: Chest x-ray Pending studies at discharge: Urine and blood cultures Labs on day of discharge: Labs from last 24 hours 04/04/24 04/04/24 04/03/24 05:03 04:32 23:29 WBC 4.6 RBC 3.56 L Hgb 9.4 L Hct 32.3 L MCV 90.7 MCH 26.4 MCHC 29.1 L RDW 14.5 Plt Count 140 L MPV 9.8 Immature Gran % (Auto) 0.6 H Neut % (Auto) 60.3 Lymph % (Auto) 30.7 [place] % (Auto) 8.2 Eos % (Auto) 0.0 Baso % (Auto) 0.2 Lymph # (Auto) 1.42 [place] # (Auto) 0.4 Eos # (Auto) 0.0 Baso # (Auto) 0.0 Abs Immat Gran (auto) 0.03 Absolute Neuts (auto) 2.8 Absolute Nucleated RBC 0.000 Nucleated RBC % 0.0 Platelet Estimate Slightly decreased % Immature Plt Fraction 3.3 Hypochromasia 1+ Poikilocytosis 1+ Anisocytosis 1+ Ovalocytes 1+ Crenated Cell 1+ Schistocytes None seen Puncture Site Left radial ABG pH 7.413 ABG pCO2 54.5 H ABG pO2 61.5 L ABG PO2/FiO2 Ratio 1.71 ABG HCO3 34.0 H ABG O2 Saturation 91.4 L ABG O2 Content 13.0 L ABG Base Excess 8.1 A-a Gradient 132.0 Oxyhemoglobin 90.0 Total Hemoglobin 10.2 L O2 Delivery Device Nasal cannula O2 Liters/Min 4.0 FiO2 36 Sodium 137 Potassium 3.8 Chloride 95 L Carbon Dioxide > 40 H Anion Gap BUN 22 H Creatinine 0.90 Estim Creat Clear Calc Not Reportable Estimated GFR 59 Glucose 92 Calcium 8.2 L Total Bilirubin 0.4 AST 36 ALT 18 Alkaline Phosphatase 95 Total Protein 6.0 L Albumin 3.0 L Urine Color Urine Appearance Urine pH Ur Specific [place] Urine Protein Urine Glucose (UA) Urine Ketones Ur Blood (Man) Urine Nitrate Urine Bilirubin Urine Urobilinogen Leukocyte Esterase Rfl Urine RBC Urine WBC Ur Squamous Epith Cells Urine Bacteria Urine Casts Nasal MRSA (PCR) Not detected 04/03/24 16:58 WBC RBC Hgb Hct MCV MCH MCHC RDW Plt Count MPV Immature Gran % (Auto) Neut % (Auto) Lymph % (Auto) [place] % (Auto) Eos % (Auto) Baso % (Auto) Lymph # (Auto) [place] # (Auto) Eos # (Auto) Baso # (Auto) Abs Immat Gran (auto) Absolute Neuts (auto) Absolute Nucleated RBC Nucleated RBC % Platelet Estimate % Immature Plt Fraction Hypochromasia Poikilocytosis Anisocytosis Ovalocytes Crenated Cell Schistocytes Puncture Site ABG pH ABG pCO2 ABG pO2 ABG PO2/FiO2 Ratio ABG HCO3 ABG O2 Saturation ABG O2 Content ABG Base Excess A-a Gradient Oxyhemoglobin Total Hemoglobin O2 Delivery Device O2 Liters/Min FiO2 Sodium Potassium Chloride Carbon Dioxide Anion Gap BUN Creatinine Estim Creat Clear Calc Estimated GFR Glucose Calcium Total Bilirubin AST ALT Alkaline Phosphatase Total Protein Albumin Urine Color Yellow Urine Appearance Cloudy H Urine pH 6.0 Ur Specific [place] 1.021 Urine Protein 1+ H Urine Glucose (UA) Negative Urine Ketones Negative Ur Blood (Man) Non-hemolyzed trace H Urine Nitrate Positive H Urine Bilirubin Negative Urine Urobilinogen 0.2 Leukocyte Esterase Rfl 2+ H Urine RBC 6-10 H Urine WBC >100 H Ur Squamous Epith Cells None seen Urine Bacteria 4+ H Urine Casts 0-2 Nasal MRSA (PCR) Preliminary micro results at discharge 04/03/24 06:47 Blood Culture - Preliminary Blood 04/03/24 06:48 Blood Culture - Preliminary Blood Procedures/Treatments: None Discharge Plan Discharge Attending physician on discharge: Cassandra Chance Discharging Clinician: Gina Marie Anticipated Discharge Date/Time: 04/04/24 14:58 Patient Disposition: NH Fpc/Asst Living Activity: as tolerated Diet: as tolerated and regular Discharge Instructions: Hospice/ comfort measures only Patient Instructions: Heart Failure (GEN) Patient Language: Sinhala Stand Alone Forms: General Discharge Information Discharge Medications: New lorazepam [Ativan] 1 mg tablet 1 mg PO Q4H PRN (Reason: anxiety) Qty: 10 0RF Continued mirtazapine [Remeron] 15 mg Tablet 15 mg PO HS Qty: 30 0RF aripiprazole 2 mg tablet 2 mg PO DAILY trazodone 50 mg tablet 50 mg PO HS Qty: 10 0RF oxycodone 5 mg Tablet 5 mg PO Q4H PRN (Reason: Pain Rated 4-6) Qty: 10 0RF citalopram 20 mg tablet 20 mg PO QHS lidocaine [Lidocaine Pain Relief] 4 % adhesive patch,medicated 1 patch transdermal DAILY PRN (Reason: Back Pain) Rx Instructions: Apply to back as needed for continued back pain. Trelegy Ellipta 100-62.5-25 mcg Blister With Device 1 inh INHALATION DAILY Qty: 28 0RF Discontinued docusate sodium 100 mg Capsule 100 mg PO BID Qty: 60 0RF nitrofurantoin monohyd/m-cryst [Macrobid] 100 mg Capsule 100 mg PO DAILY Qty: 30 0RF Eliquis 5 mg tablet 5 mg PO BID Qty: 60 0RF furosemide 20 mg tablet 20 mg PO DAILY polyethylene glycol 3350 [Miralax] 17 gram Powder In Packet 17 g PO QAM PRN (Reason: Constipation) Qty: 30 0RF amlodipine [Norvasc] 5 mg Tablet 5 mg PO DAILY Qty: 90 0RF potassium chloride 10 mEq capsule, extended release 10 meq PO DAILY Qty: 10 0RF atorvastatin 80 mg Tablet 80 mg PO HS memantine 5 mg Tablet 5 mg PO Q12H pramipexole [Mirapex] 0.5 mg Tablet 0.5 mg PO HS ferrous sulfate 325 mg (65 mg iron) tablet 325 mg PO Q48H pregabalin 100 mg capsule 100 mg PO Q12H guaifenesin [Mucus Relief ER] 600 mg tablet extended release 12hr 600 mg PO Q12HR PRN (Reason: Congestion) PreserVision AREDS-2 250-90-40-1 mg Capsule 1 tablet PO BID albuterol sulfate 2.5 mg /3 mL (0.083 %) Solution For Nebulization 2.5 mg INHALATION Q8H PRN (Reason: Wheezing) cholecalciferol (vitamin D3) [Vitamin D3] 25 mcg (1,000 unit) Capsule 25 mcg PO DAILY pantoprazole 40 mg tablet,delayed release (DR/EC) 40 mg PO QAM Qty: 30 0RF Date of admission: 04/03/24 17:35 Primary Care Provider: AlmaAlexsandra Admitting Provider: Rosario Dickey Attending physician on admission: Rosario Dickey Condition: Improved Quality VTE Prophylaxis VTE prophylaxis: pharmacologic ordered
--- OUTSIDE RECORDS SUMMARY | 2024-04-10 04:33 | XMS_ITS | Clinical Summary ---
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 Hand Name Role Phone SIMA ARTEAGA Unavailable Unavailable RATHER RNDARRIUS Unavailable Unavailable Payers Payer Name Policy Type Policy Number Effective Date Expira tion Date MEDICARE.PALMRANDI.[facility] [id number] Problems Condition Name Condition Details Condition Category Status Onset Date Resolution Date Last Treatment Date Treating Clinician Comments URINARY TRACT INFECTION, SITE NOT SPECIFIED Active 04-17 00:00: 00 UNSP ESCHERICHIA COLI THE CAUSE OF DISEASES CLASSD ELSWHR Active 05-08 00:00: 00 PNEUMONIA, UNSPECIFIED ORGANISM Active 05-08 00:00: 00 CHR OBSTRUCTIVE PULMON DISEASE WITH (ACUTE) LOWER RESP INFCT Active 05-08 00:00: 00 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 Active 05-08 00:00: 00 DYSPHAGIA, UNSPECIFIED Active 05-08 00:00: 00 OTHER CHRONIC PAIN Active 04-13 00:00: 00 HYPERLIPIDEM IA, UNSPECIFIED Active 04-13 00:00: 00 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 Active 05-08 00:00: 00 DEPRESSION, UNSPECIFIED Active 05-08 00:00: 00 RESTLESS LEGS SYNDROME Active 05-08 00:00: 00 OTHER SPECIFIED ANXIETY DISORDERS Active 05-08 00:00: 00 ANEMIA, UNSPECIFIED Active 05-08 00:00: 00 GASTRO-ESOPH AGEAL REFLUX DISEASE WITHOUT ESOPHAGITIS Active 05-08 00:00: 00 DEPENDENCE ON SUPPLEMENTAL OXYGEN Active 05-08 00:00: 00 ACQUIRED ABSENCE OF OTHER SPECIFIED PARTS OF DIGESTIVE TRACT Active 05-08 00:00: 00 ARTHRODESIS STATUS Active 05-08 00:00: 00 PERSONAL HISTORY OF NICOTINE DEPENDENCE Active 05-08 00:00: 00 HISTORY OF FALLING Active 05-08 00:00: 00 Allergies, Adverse Reactions, Alerts Allergy Name Allergy Type Status Severity Reaction(s) Onset Date Inactive Date Treating Clinician Comments CHLORPROMAZI NE Propensity to adverse reactions Active 05-08 11:07: 18 DIPHENHYDRAM INE Propensity to adverse reactions Active 05-08 11:08: 08 MEPERIDINE Propensity to adverse reactions Active 05-08 11:09: 09 ROFECOXIB Propensity to adverse reactions Active 05-08 11:09: 40 ZOLPIDEM Propensity to adverse reactions Active 05-08 11:09: 54 Medications Ordered Medication Name Filled Medication Name Start Date Stop Date Current Medication? Ordering Clinician Indication Dosage Frequency Signature (SIG) Comments Components furosemide 20 mg tablet 2022-04 00:00: 00 Yes [id number] FLUID RETENTION 1 tablet DAILY 1 tablet DAILY (route: oral) Med Classific ation: Cardiovas cular Therapy Agents Trelegy Ellipta 100 mcg-62.5 mcg-25 mcg powder for inhalation 2022-04 00:00: 00 Yes [id number] BREATHING 1 inhalat ion DAILY 1 inhalation DAILY (route: inhalation ) Med Classific ation: Respirato ry Therapy Agents albuterol sulfate HFA 90 mcg/actuati on aerosol inhaler 2022-04 00:00: 00 03-05 00:00 :00 No [id number] Per instruc tions Per instructio ns (route: inhalation ) Med Classific ation: Respirato ry Therapy Agents atorvastati n 80 mg tablet 2022-04 00:00: 00 03-05 00:00 :00 No [id number] Per instruc tions Per instructio ns (route: oral) Med Classific ation: Cardiovas cular Therapy Agents citalopram 20 mg tablet 2022-04 00:00: 00 Yes [id number] MOOD 1 tablet DAILY 1 tablet DAILY (route: oral) Med Classific ation: Central Nervous System Agents oxycodone-a cetaminophe n 7.5 mg-325 mg tablet 2022-04 00:00: 00 03-05 00:00 :00 No [id number] Per instruc tions EVERY 6 HOURS NEEDED Per instructio ns EVERY 6 HOURS NEEDED (route: oral) Med Classific ation: Analgesic , Anti-infl ammatory or Antipyret ic amitriptyli ne 25 mg tablet 2022-04 00:00: 00 03-05 00:00 :00 No [id number] Per instruc tions EVERYDAY AT BEDTIME Per instructio ns EVERYDAY AT BEDTIME (route: oral) Med Classific ation: Central Nervous System Agents pregabalin 100 mg capsule 2022-04 00:00: 00 Yes [id number] PAIN 1 capsule 2 TIMES DAILY 1 capsule 2 TIMES DAILY (route: oral) Med Classific ation: Central Nervous System Agents albuterol sulfate 2.5 mg/3 mL (0.083 %) solution for nebulizatio n 2022-04 00:00: 00 Yes [id number] WHEEZING 2.5 mg EVERY 8 HOURS 2.5 mg EVERY 8 HOURS (route: inhalation ) Med Classific ation: Respirato ry Therapy Agents amitriptyli ne 25 mg tablet 2022-04 00:00: 00 Yes [id number] MOOD 1 tablet BEDTIME 1 tablet BEDTIME (route: oral) Med Classific ation: Central Nervous System Agents atorvastati n 80 mg tablet 2022-04 00:00: 00 Yes [id number] CHOLESTEROL 1 tablet DAILY 1 tablet DAILY (route: oral) Med Classific ation: Cardiovas cular Therapy Agents benzonatate 100 mg capsule 2022-04 00:00: 00 Yes [id number] COUGH 1 capsule 3 TIMES DAILY 1 capsule 3 TIMES DAILY (route: oral) Med Classific ation: Respirato ry Therapy Agents clopidogrel 75 mg tablet 2022-04 00:00: 00 Yes [id number] BLOOD THINNER 1 tablet DAILY 1 tablet DAILY (route: oral) Med Classific ation: Hematolog ical Agents ferrous sulfate 325 mg (65 mg iron) tablet 2022-04 00:00: 00 Yes [id number] SUPPLEMENT 1 tablet DAILY 1 tablet DAILY (route: oral) Med Classific ation: Electroly te Balance-N utritiona l Products ipratropium bromide 0.02 % solution for inhalation 2022-04 00:00: 00 Yes [id number] SHORTNESS OF BREATH 0.5 mg EVERY 6 HOURS 0.5 mg EVERY 6 HOURS (route: inhalation ) Med Classific ation: Respirato ry Therapy Agents Laxative (bisacodyl) 5 mg tablet 2022-04 00:00: 00 Yes [id number] CONSTIPATIO N 10 mg DAILY 10 mg DAILY (route: oral) Med Classific ation: Gastroint estinal Therapy Agents melatonin 3 mg tablet 2022-04 00:00: 00 Yes [id number] SLEEPING 1 tablet BEDTIME 1 tablet BEDTIME (route: oral) Med Classific ation: Central Nervous System Agents memantine 5 mg tablet 2022-04 00:00: 00 Yes [id number] APPETITE 1 tablet 2 TIMES DAILY 1 tablet 2 TIMES DAILY (route: oral) Med Classific ation: Cognitive Disorder Therapy Mirapex 0.5 mg tablet 2022-04 00:00: 00 Yes [id number] . 0.5 mg BEDTIME 0.5 mg BEDTIME (route: oral) Med Classific ation: Central Nervous System Agents O2 - OXYGEN 2022-04 00:00: 00 Yes [id number] DIFFICULTIE S WITH BREATHING Per instruc tions DIRECTED Per instructio ns DIRECTED (route: Oxygen) Med Classific ation: Medical Oxygen oxycodone-a cetaminophe n 5 mg-325 mg tablet 2022-04 00:00: 00 Yes [id number] PAIN 1 tablet EVERY 6 HOURS 1 tablet EVERY 6 HOURS (route: oral) Med Classific ation: Analgesic , Anti-infl ammatory or Antipyret ic pantoprazol e 40 mg tablet,vicky yed release 2022-04 00:00: 00 Yes [id number] ACID REFLUX 1 tablet DAILY 1 tablet DAILY (route: oral) Med Classific ation: Gastroint estinal Therapy Agents Vitamin D3 25 mcg (1,000 unit) capsule 2022-04 00:00: 00 Yes [id number] SUPPLEMENT 1 capsule DAILY 1 capsule DAILY (route: oral) Med Classific ation: Electroly te Balance-N utritiona l Products Cipro 500 mg tablet 05-08 00:00: 00 05-15 23:59 :00 No [id number] UTI 500 mg 2 TIMES DAILY 500 mg 2 TIMES DAILY (route: oral) Med Classific ation: Anti-Infe ctive Agents nitrofurant oin macrocrysta l 100 mg capsule 06-16 00:00: 00 Yes [id number] INFECTION 1 capsule DAILY 1 capsule DAILY (route: oral) Med Classific ation: Genitouri nary Therapy Immunizations Ordered Immunization Name Filled Immunization Name Date Status Comments Refusal Reason INFLUENZA, INFLUENZA 2023-01-12 00:00:00 Vital Signs Vital Name Observation Time Observation Value Commen ts Temperature 2023-07-02 08:24:00.000 97.8 [degF] Temperature 2023-07-01 12:31:00.000 98.4 [degF] Temperature 2023-06-26 14:50:00.000 98.2 [degF] Temperature 2023-06-24 14:49:00.000 98 [degF] Temperature 2023-06-17 13:28:00.000 97.5 [degF] Temperature 2023-06-11 16:28:00.000 97.4 [degF] Temperature 2023-06-09 14:28:00.000 98.1 [degF] Temperature 2023-06-03 11:22:00.000 97.3 [degF] Temperature 2023-06-02 15:39:00.000 97.5 [degF] Temperature 2023-06-01 14:51:00.000 98.2 [degF] Temperature 2023-05-29 11:37:00.000 97 [degF] Temperature 2023-05-28 13:33:00.000 97.7 [degF] Temperature 2023-05-28 11:00:00.000 97.2 [degF] Temperature 2023-05-21 10:27:00.000 97.8 [degF] Temperature 2023-05-20 15:57:00.000 97.1 [degF] Temperature 2023-05-20 15:11:00.000 97.1 [degF] Temperature 2023-05-12 16:07:00.000 97.5 [degF] Temperature 2023-05-12 12:11:00.000 97.9 [degF] Temperature 2023-05-11 13:49:00.000 97.2 [degF] Temperature 2023-05-08 11:50:00.000 97.6 [degF] BMI (%) 2023-05-08 11:17:14.000 30 kg/m2 Height 2023-05-08 11:16:51.000 55 [in_us] Pulse 2023-07-02 08:24:00.000 60 /min Pulse 2023-07-01 12:31:00.000 84 /min Pulse 2023-06-26 14:50:00.000 71 /min Pulse 2023-06-24 14:49:00.000 64 /min Pulse 2023-06-17 13:28:00.000 60 /min Pulse 2023-06-11 16:28:00.000 60 /min Pulse 2023-06-09 14:28:00.000 78 /min Pulse 2023-06-03 11:22:00.000 75 /min Pulse 2023-06-02 15:39:00.000 68 /min Pulse 2023-06-01 14:51:00.000 70 /min Pulse 2023-05-29 11:37:00.000 60 /min Pulse 2023-05-28 13:33:00.000 78 /min Pulse 2023-05-28 11:00:00.000 78 /min Pulse 2023-05-21 10:27:00.000 76 /min Pulse 2023-05-20 15:57:00.000 72 /min Pulse 2023-05-20 15:11:00.000 72 /min Pulse 2023-05-12 16:07:00.000 72 /min Pulse 2023-05-12 12:11:00.000 82 /min Pulse 2023-05-11 13:49:00.000 71 /min Pulse 2023-05-08 11:50:00.000 80 /min O2 Saturation (%) 2023-07-02 08:29:00.000 98 % O2 Saturation (%) 2023-07-01 12:31:00.000 96 % O2 Saturation (%) 2023-06-26 14:50:00.000 91 % O2 Saturation (%) 2023-06-24 14:49:00.000 96 % O2 Saturation (%) 2023-06-17 13:28:00.000 91 % O2 Saturation (%) 2023-06-09 14:28:00.000 95 % O2 Saturation (%) 2023-06-03 11:22:00.000 96 % O2 Saturation (%) 2023-06-02 15:39:00.000 95 % O2 Saturation (%) 2023-06-01 14:51:00.000 93 % O2 Saturation (%) 2023-05-29 11:43:00.000 94 % O2 Saturation (%) 2023-05-28 13:33:00.000 92 % O2 Saturation (%) 2023-05-21 10:27:00.000 91 % O2 Saturation (%) 2023-05-20 15:57:00.000 99 % O2 Saturation (%) 2023-05-12 12:11:00.000 96 % O2 Saturation (%) 2023-05-11 13:49:00.000 92 % O2 Saturation (%) 2023-05-08 11:50:00.000 92 % Respirations 2023-07-02 08:24:00.000 20 /min Respirations 2023-07-01 12:31:00.000 18 /min Respirations 2023-06-26 14:50:00.000 18 /min Respirations 2023-06-24 14:49:00.000 18 /min Respirations 2023-06-17 13:28:00.000 20 /min Respirations 2023-06-11 16:28:00.000 18 /min Respirations 2023-06-09 14:28:00.000 18 /min Respirations 2023-06-03 11:22:00.000 17 /min Respirations 2023-06-02 15:39:00.000 18 /min Respirations 2023-06-01 14:51:00.000 18 /min Respirations 2023-05-29 11:37:00.000 18 /min Respirations 2023-05-28 13:33:00.000 18 /min Respirations 2023-05-28 11:00:00.000 18 /min Respirations 2023-05-21 10:27:00.000 19 /min Respirations 2023-05-20 15:57:00.000 18 /min Respirations 2023-05-20 15:11:00.000 18 /min Respirations 2023-05-12 16:07:00.000 18 /min Respirations 2023-05-12 12:11:00.000 16 /min Respirations 2023-05-11 13:49:00.000 18 /min Respirations 2023-05-08 11:50:00.000 18 /min Weight (lbs) 2023-05-08 11:17:14.000 130 [lb_av] Systolic Blood Pressure 2023-07-02 08:24:00.000 120 mm [Hg] Systolic Blood Pressure 2023-07-01 12:31:00.000 110 mm [Hg] Systolic Blood Pressure 2023-06-26 14:50:00.000 110 mm [Hg] Systolic Blood Pressure 2023-06-24 14:49:00.000 102 mm [Hg] Systolic Blood Pressure 2023-06-17 13:28:00.000 134 mm [Hg] Systolic Blood Pressure 2023-06-11 16:28:00.000 106 mm [Hg] Systolic Blood Pressure 2023-06-09 14:28:00.000 100 mm [Hg] Systolic Blood Pressure 2023-06-03 11:22:00.000 106 mm [Hg] Systolic Blood Pressure 2023-06-02 15:39:00.000 112 mm [Hg] Systolic Blood Pressure 2023-06-01 14:51:00.000 110 mm [Hg] Systolic Blood Pressure 2023-05-29 11:37:00.000 124 mm [Hg] Systolic Blood Pressure 2023-05-28 13:33:00.000 108 mm [Hg] Systolic Blood Pressure 2023-05-28 11:00:00.000 100 mm [Hg] Systolic Blood Pressure 2023-05-21 10:27:00.000 110 mm [Hg] Systolic Blood Pressure 2023-05-20 15:57:00.000 134 mm [Hg] Systolic Blood Pressure 2023-05-20 15:11:00.000 134 mm [Hg] Systolic Blood Pressure 2023-05-12 16:07:00.000 130 mm [Hg] Systolic Blood Pressure 2023-05-12 12:11:00.000 128 mm [Hg] Systolic Blood Pressure 2023-05-11 13:49:00.000 112 mm [Hg] Systolic Blood Pressure 2023-05-08 11:50:00.000 110 mm [Hg] Diastolic Blood Pressure 2023-07-02 08:24:00.000 74 mm [Hg] Diastolic Blood Pressure 2023-07-01 12:31:00.000 70 mm [Hg] Diastolic Blood Pressure 2023-06-26 14:50:00.000 68 mm [Hg] Diastolic Blood Pressure 2023-06-24 14:49:00.000 60 mm [Hg] Diastolic Blood Pressure 2023-06-17 13:28:00.000 74 mm [Hg] Diastolic Blood Pressure 2023-06-11 16:28:00.000 70 mm [Hg] Diastolic Blood Pressure 2023-06-09 14:28:00.000 60 mm [Hg] Diastolic Blood Pressure 2023-06-03 11:22:00.000 72 mm [Hg] Diastolic Blood Pressure 2023-06-02 15:39:00.000 60 mm [Hg] Diastolic Blood Pressure 2023-06-01 14:51:00.000 60 mm [Hg] Diastolic Blood Pressure 2023-05-29 11:37:00.000 70 mm [Hg] Diastolic Blood Pressure 2023-05-28 13:33:00.000 58 mm [Hg] Diastolic Blood Pressure 2023-05-28 11:00:00.000 62 mm [Hg] Diastolic Blood Pressure 2023-05-21 10:27:00.000 74 mm [Hg] Diastolic Blood Pressure 2023-05-20 15:57:00.000 88 mm [Hg] Diastolic Blood Pressure 2023-05-20 15:11:00.000 88 mm [Hg] Diastolic Blood Pressure 2023-05-12 16:07:00.000 78 mm [Hg] Diastolic Blood Pressure 2023-05-12 12:11:00.000 72 mm [Hg] Diastolic Blood Pressure 2023-05-11 13:49:00.000 52 mm [Hg] Diastolic Blood Pressure 2023-05-08 11:50:00.000 68 mm [Hg] Plan of Treatment Planned Activity Planned Date Details Comments Future Scheduled Test RN TO OBSE RVE, ASSESS, EVALUATE, AND DEVELOP AN INDIVIDUALIZED PLAN OF CARE. AGENCY MAY ACCEPT ORDERS FROM CONSULTING PHYSICIANS [place] REGISTERED NURSETO OBSERVE AND ASSESS/LICENSED PRACTICAL NURSE TO OBSERVE FOR RISK FOR FALLS AND INSTRUCT IN FALL PREVENTION, HOME SAFETY, MEDICATION MANAGEMENT, INFECTION PREVENTION, AND NUTRITION MANAGEMENT. REGISTERED NURSE/LICENSED PRACTICAL NURSE MAY PERFORM O2 SATURATION LEVEL ON ADMISSION AND PRN FOR ROUTINE RN TO ASSESS/CHEMISTRY SPECIALIST TO OBSERVE PATIENT, WITH NOTIFICATION TO THE PHYSICIAN IF SATURATION IS 90% IN THE ABSENCE OF MORE SPECIFIC PARAMETERS FROM THE PHYSICIAN. AGENCY MAY PERFORM A RESUMPTION OF CARE VISIT FOLLOWING ANY HOSPITAL ADMISSION. REGISTERED NURSE/LICENSED PRACTICAL NURSE TO MONITOR CO-MORBID CONDITIONS LISTED ON THE PLAN OF CARE AND ANY NEW CONDITIONS THAT PRESENT THEMSELVES DURING THIS EPISODE TO IDENTIFY CHANGES AND INTERVENE TO MINIMIZE COMPLICATIONS. [code = RN TO OBSERVE, ASSESS, EVALUATE, AND DEVELOP AN INDIVIDUALIZED PLAN OF CARE. AGENCY MAY ACCEPT ORDERS FROM CONSULTING PHYSICIANS SUYAPA REGISTERED NURSETO OBSERVE AND ASSESS/LICENSED PRACTICAL NURSE TO OBSERVE FOR RISK FOR FALLS AND INSTRUCT IN FALL PREVENTION, HOME SAFETY, MEDICATION MANAGEMENT, INFECTION PREVENTION, AND NUTRITION MANAGEMENT. REGISTERED NURSE/LICENSED PRACTICAL NURSE MAY PERFORM O2 SATURATION LEVEL ON ADMISSION AND PRN FOR ROUTINE RN TO ASSESS/CHEMISTRY SPECIALIST TO OBSERVE PATIENT, WITH NOTIFICATION TO THE PHYSICIAN IF SATURATION IS 90% IN THE ABSENCE OF MORE SPECIFIC PARAMETERS FROM THE PHYSICIAN. AGENCY MAY PERFORM A RESUMPTION OF CARE VISIT FOLLOWING ANY HOSPITAL ADMISSION. REGISTERED NURSE/LICENSED PRACTICAL NURSE TO MONITOR CO-MORBID CONDITIONS LISTED ON THE PLAN OF CARE AND ANY NEW CONDITIONS THAT PRESENT THEMSELVES DURING THIS EPISODE TO IDENTIFY CHANGES AND INTERVENE TO MINIMIZE COMPLICATIONS.] Future Scheduled Test COPD MONIT ORING REGISTERED NURSE/LICENSED PRACTICAL NURSE TO MONITOR FOR SIGNS AND SYMPTOMS OF COPD EXACERBATION, MONITOR FOR ADHERENCE TO MEDICATION AND COPD MANAGEMENT. [code = COPD MONITORING REGISTERED NURSE/LICENSED PRACTICAL NURSE TO MONITOR FOR SIGNS AND SYMPTOMS OF COPD EXACERBATION, MONITOR FOR ADHERENCE TO MEDICATION AND COPD MANAGEMENT.] Future Scheduled Test RISK FOR H OSPITALIZATION; REGISTERED NURSE TO ASSESS /TEACH, LICENSED PRACTICAL NURSE TO OBSERVE/TEACH PATIENT/CAREGIVER ON RISK FOR HOSPITALIZATION/EMERGENCY ROOM VISITS, TEACH SIGNS AND SYMPTOMS THAT PUT PATIENT AT RISK, WHEN TO NOTIFY NURSE/PHYSICIAN OF COMPLICATIONS/DECLINE, AND WHEN TO CALL 911. [code = RISK FOR HOSPITALIZATION; REGISTERED NURSE TO ASSESS /TEACH, LICENSED PRACTICAL NURSE TO OBSERVE/TEACH PATIENT/CAREGIVER ON RISK FOR HOSPITALIZATION/EMERGENCY ROOM VISITS, TEACH SIGNS AND SYMPTOMS THAT PUT PATIENT AT RISK, WHEN TO NOTIFY NURSE/PHYSICIAN OF COMPLICATIONS/DECLINE, AND WHEN TO CALL 911.] Future Scheduled Test RESPIRATOR Y SYSTEM MANAGEMENT; REGISTERED NURSE TO ASSESS AND TEACH/LICENSED PRACTICAL NURSE TO OBSERVE AND TEACH RELATED TO ALTERED RESPIRATORY STATUS TO MINIMIZE COMPLICATIONS AND REDUCE HOSPITALIZATION. [code = RESPIRATORY SYSTEM MANAGEMENT; REGISTERED NURSE TO ASSESS AND TEACH/LICENSED PRACTICAL NURSE TO OBSERVE AND TEACH RELATED TO ALTERED RESPIRATORY STATUS TO MINIMIZE COMPLICATIONS AND REDUCE HOSPITALIZATION.] Future Scheduled Test COPD MANAG EMENT; REGISTERED NURSE TO ASSESS AND TEACH/LICENSED PRACTICAL NURSE TO OBSERVE AND TEACH SIGNS/SYMPTOMS OF COPD EXACERBATION AND PROVIDE EARLY INTERVENTIONS TO MINIMIZE RISK OF HOSPITALIZATION. REGISTERED NURSE/LICENSED PRACTICAL NURSE TO INSTRUCT ON SELF-CARE MANAGEMENT INCLUDING BREATHING TECHNIQUES, AIRWAY CLEARANCE, AND PROPER USE OF COPD MEDICATIONS. REGISTERED NURSE TO ASSESS AND TEACH/LICENSED PRACTICAL NURSE TO OBSERVE AND TEACH PATIENT/CAREGIVER ABILITY TO MONITOR AND RECORD VITAL SIGNS INCLUDING PULSE OXIMETRY AND BLOOD PRESSURE. PULSE OXIMETER AND BP MONITOR TO BE PROVIDED IF NEEDED. [code = COPD MANAGEMENT; REGISTERED NURSE TO ASSESS AND TEACH/LICENSED PRACTICAL NURSE TO OBSERVE AND TEACH SIGNS/SYMPTOMS OF COPD EXACERBATION AND PROVIDE EARLY INTERVENTIONS TO MINIMIZE RISK OF HOSPITALIZATION. REGISTERED NURSE/LICENSED PRACTICAL NURSE TO INSTRUCT ON SELF-CARE MANAGEMENT INCLUDING BREATHING TECHNIQUES, AIRWAY CLEARANCE, AND PROPER USE OF COPD MEDICATIONS. REGISTERED NURSE TO ASSESS AND TEACH/LICENSED PRACTICAL NURSE TO OBSERVE AND TEACH PATIENT/CAREGIVER ABILITY TO MONITOR AND RECORD VITAL SIGNS INCLUDING PULSE OXIMETRY AND BLOOD PRESSURE. PULSE OXIMETER AND BP MONITOR TO BE PROVIDED IF NEEDED.] Future Scheduled Test OXYGEN THE RAPY; REGISTERED NURSE/LICENSED PRACTICAL NURSE TO INSTRUCT ON OXYGEN MANAGEMENT INCLUDING: ADMINISTRATION AT 2-3L/MIN VIA NASAL CANULA CONTINUOUS CARE OF EQUIPMENT AND SAFETY. [code = OXYGEN THERAPY; REGISTERED NURSE/LICENSED PRACTICAL NURSE TO INSTRUCT ON OXYGEN MANAGEMENT INCLUDING: ADMINISTRATION AT 2-3L/MIN VIA NASAL CANULA CONTINUOUS CARE OF EQUIPMENT AND SAFETY.] Future Scheduled Test PAIN MANAG EMENT; REGISTERED NURSE TO ASSESS AND TEACH/LICENSED PRACTICAL NURSE TO OBSERVE AND TEACH AND PROVIDE EDUCATION ON PAIN MANAGEMENT TECHNIQUES. [code = PAIN MANAGEMENT; REGISTERED NURSE TO ASSESS AND TEACH/LICENSED PRACTICAL NURSE TO OBSERVE AND TEACH AND PROVIDE EDUCATION ON PAIN MANAGEMENT TECHNIQUES.] Future Scheduled Test GENITOURIN DRAKE MANAGEMENT; REGISTERED NURSE TO ASSESS AND TEACH/LICENSED PRACTICAL NURSE TO OBSERVE AND TEACH RELATED TO ALTERED GENITOURINARY STATUS TO MINIMIZE COMPLICATIONS AND REDUCE HOSPITALIZATION. [code = GENITOURINARY MANAGEMENT; REGISTERED NURSE TO ASSESS AND TEACH/LICENSED PRACTICAL NURSE TO OBSERVE AND TEACH RELATED TO ALTERED GENITOURINARY STATUS TO MINIMIZE COMPLICATIONS AND REDUCE HOSPITALIZATION.] Future Scheduled Test URINARY IN CONTINENCE MANAGEMENT; REGISTERED NURSE TO ASSESS AND TEACH/LICENSED PRACTICAL NURSE TO OBSERVE AND TEACH MANAGEMENT OF URINARY INCONTINENCE. TEACH/INSTRUCT ON PREVENTING INFECTION AND SKIN BREAKDOWN. REGISTERED NURSE/LICENSED PRACTICAL NURSE MAY INSTRUCT IN BLADDER TRAINING PROGRAM INDICATED. [code = URINARY INCONTINENCE MANAGEMENT; REGISTERED NURSE TO ASSESS AND TEACH/LICENSED PRACTICAL NURSE TO OBSERVE AND TEACH MANAGEMENT OF URINARY INCONTINENCE. TEACH/INSTRUCT ON PREVENTING INFECTION AND SKIN BREAKDOWN. REGISTERED NURSE/LICENSED PRACTICAL NURSE MAY INSTRUCT IN BLADDER TRAINING PROGRAM INDICATED.] Future Scheduled Test PHYSICAL T HERAPIST TO EVALUATE AND TREAT [code = PHYSICAL THERAPIST TO EVALUATE AND TREAT ] Future Scheduled Test OCCUPATION AL THERAPIST TO EVALUATE ANDTREAT [code = OCCUPATIONAL THERAPIST TO EVALUATE ANDTREAT] Future Scheduled Test PRN VISITS ; NUMBER OF REGISTERED NURSE/LICENSED PRACTICALPRN VISITS: 1 REGISTERED NURSE/LICENSED PRACTICALTO PERFORM: ASSESSMENT AND INTERVENTIONS FOR THE FOLLOWING REASONS: RESPIRATORY COMPLICATIONS [code = PRN VISITS; NUMBER OF REGISTERED NURSE/LICENSED PRACTICALPRN VISITS: 1 REGISTERED NURSE/LICENSED PRACTICALTO PERFORM: ASSESSMENT AND INTERVENTIONS FOR THE FOLLOWING REASONS: RESPIRATORY COMPLICATIONS ] Goal 2023-07-02 Patient Goal - GET STRONGER Goal Provider Goal - A PLAN OF CARE WILL BE ESTABLISHED THAT MEETS THE PATIENTS NEEDS. PATIENT WILL DEMONSTRATE OXYGEN SATURATION WITHIN NORMAL LIMITS OR PATIENTS OPTIMAL LEVEL ESTABLISHED BY THE PHYSICIAN THROUGHOUT CARE. CHANGES TO CO-MORBID CONDITIONS AND ANY NEW CONDITIONS WILL BE IDENTIFIED AND REPORTED TO THE PHYSICIAN. Goal Provider Goal - COPD WILL BE CONTROLLED THROUGHOUT THE EPISODE. Goal Provider Goal - PATIENT/CAREGIVER WILL VERBALIZE UNDERSTANDING OF SIGNS AND SYMPTOMS THAT PUT THE PATIENT AT RISK FOR HOSPITALIZATION /EMERGENCY ROOM VISITS, WHEN TO NOTIFY NURSE/PHYSICIAN OF COMPLICATIONS/DECLINE AND WHEN TO CALL 911. Goal Provider Goal - PATIENT / CAREGIVER WILL VERBALIZE/DEMONSTRATE UNDERSTANDING OF MEASURES TO MANAGE ALTERED RESPIRATORY STATUS BY END OF EPISODE. Goal Provider Goal - PATIENT / CAREGIVER WILL VERBALIZE/DEMONSTRATE AN ABILITY TO ADHERE TO SELF-MANAGEMENT OF COPD TO MINIMIZE COMPLICATIONS AND AVOID HOSPITALIZATION BY END OF EPISODE. Goal Provider Goal - PATIENT/CAREGIVER WILL VERBALIZE/DEMONSTRATE UNDERSTANDING OF CARE AND MANAGEMENT OF OXYGEN THERAPY BY END OF EPISODE Goal Provider Goal - PATIENT / CAREGIVER WILL VERBALIZE / DEMONSTRATE UNDERSTANDING OF PAIN CONTROL MEASURES BY EOE Goal Provider Goal - PATIENT / CAREGIVER WILL VERBALIZE/DEMONSTRATE UNDERSTANDING OF MEASURES TO MANAGE ALTERED GENITOURINARY STATUS BY END OF EPISODE. Goal Provider Goal - PATIENT/CAREGIVER WILL VERBALIZE/DEMONSTRATE UNDERSTANDING OF CARE AND MANAGEMENT OF URINARY INCONTINENCE BY EOE . Goal Provider Goal - Goal Provider Goal - Goal Provider Goal - Reason for Visit INDEPENDENT WITH USE OF ASSISTIVE DEVICE Encounters Start Date/Time End Date/Time Encounter Type Admission Type Attending [facility] Department Encounter ID Discharge Date Discharge Status Discharge Condition Discharge Reason Percent Goals Met 2023-05-08 00:00:00 2023-07-02 00:00:00 Outpatient [facility] [id number] 2023-07-02 00:00:00 DISCHARGE TO HOME OR SELF CARE INDEPENDEN T WITH USE OF ASSISTIVE DEVICE HH OR [facility]- GOALS MET 88.89
--- OUTSIDE RECORDS SUMMARY | 2024-04-10 04:33 | XMS_ITS | CONTINUITY OF CARE DOCUMENT ---
Author Name zak crespo Address Unknown Organization [facility] Address [address] [place] [address] Phone [phone] Care Team Providers Care Log Operations Coordinator Name Role Phone Collin DURHAM, Nnamdi Unavailable SIMA ARTEAGA Unavailable SIMA ARTEAGA Unavailable [phone] PROBLEMS Condition Status Date Provider Notes Hiatal hernia active Nnamdi Polanco MD Hyperlipidemia active Nnamdi Polanco MD HTN essential--echo ef 65%, 07/2020 active Wai Benitez Shortness of breath cath nl cors nl LV active Nnamdi Polanco MD Claudication completed - Nnamdi Polanco MD COPD, on O2 and cpap at night active Wai fong ARTHRITIS active Nnamdi Polanco MD PVD with claudication - george re 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 Nnamdi Polanco MD Dizziness active Nnamdi Polanco MD ENCOUNTERS Date Type Provider Location Encounter Diag nosis - In-person encounter Office Visit Nnamdi Polanco MD [facility] COPD, on O2 and cpap at night - In-person encounter Office Visit Nnamdi Polanco MD [facility] Dizziness - In-person encounter Office Visit Nnamdi Polanco MD [facility] - In-person encounter Office Visit Nnamdi Polanco MD [facility] - In-person encounter Office Visit Nnamdi Polanco MD [facility] - In-person encounter Office Visit Nnamdi Polanco MD [facility] HTN essential--echo ef 65%, 07/2020 - In-person encounter Office Visit Nnamdi Polanco MD [facility] HTN essential--echo ef 65%, laudicationPV D with claudication - severe 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 - In-person encounter Office Visit Nnamdi Polanco MD [facility] - In-person encounter Office Visit Nnamdi Polanco MD [facility] - In-person encounter Office Visit Nnamdi Polanco MD [facility] ARTHRITIS - In-person encounter Office Visit Nnamdi Polanco MD [facility] - In-person encounter Office Visit Nnamdi Polanco MD [facility] - In-person encounter Office Visit Nnamdi Polanco MD [facility] HTN essential--echo ef 65%, hortness of breath cath 03/29 nl cors nl LV VITAL SIGNS Date Observation Value Provider Body Mass Index (Ratio) 28.84 kg/m2 Seymour Polanco MD Inhaled O2 2 L/min [facility] blood pressure, diastolic 69 mm[Hg] [facility], systolic 101 mm[Hg] [facility] bertrand [facility] oxygen saturation, oximetry 92 % [facility] pulse rate 89 /min [facility] respiratory rate E&M 16 /min [facility] E&M 138 [lb_av] Godfrey Christinaanan height E&M 58 [in_i] Godfreybertrand Christinaanan Body Mass Index (Ratio) 28.84 kg/m2 Seymour Polanco MD blood pressure, diastolic 70 mm[Hg] Li nkLogic blood pressure, systolic 92 mm[Hg] Maricruz kLogic blood pressure, cuff size regular Ja rret blood pressure, diastolic 70 mm[Hg] Ja rret blood pressure, systolic 92 mm[Hg] [facility] pulse rate 80 /min [facility] oxygen saturation, oximetry 89 % respiratory rate E&M 16 /min Robert weight E&M 138 [lb_av] Robert height E&M 58 [in_i] Robert y Body Mass Index (Ratio) 27.17 kg/m2 Seymour Polanco MD blood pressure, cuff size regular Ja rret blood pressure, diastolic 78 mm[Hg] Ja rret blood pressure, systolic 112 mm[Hg] [facility] ret pulse rate 82 /min Robert oxygen saturation, oximetry 84 % Inhaled O2 2 L/min Robert respiratory rate E&M 12 /min Robert weight E&M 130 [lb_av] Robert height E&M 58 [in_i] Robert y Body Mass Index (Ratio) 29.47 kg/m2 Seymour Polanco MD blood pressure, cuff size regular ramya Rios blood pressure, diastolic 76 mm[Hg] Lobo Jarrettelder blood pressure, systolic 124 mm[Hg] Mary Jarrettelder Inhaled O2 2 L/min Tanesha Jarrette lder respiratory rate E&M 14 /min Tanesha powellelder pulse rate 70 /min Tanesha Delarosa lder weight E&M 141 [lb_av] Tanesha Jarrette lder height E&M 58 [in_i] Tanesha Delarosa er Body Mass Index (Ratio) 29.59 kg/m2 Seymour Polanco MD blood pressure, diastolic 73 mm[Hg] Aracely nkLogsvitlana blood pressure, systolic 122 mm[Hg] Maricruz kLogic weight E&M 141.6 [lb_av] Falguniveronica Boyce blood pressure, diastolic 73 mm[Hg] St gonzalo Boyce blood pressure, systolic 122 mm[Hg] Sta veronica Boyce oxygen saturation, oximetry 81 % Falguniveronica Boyce pulse rate 81 /min Falguniveronica Boyce respiratory rate E&M 16 /min Falguni Dutton kade Inhaled O2 3 L/min Falguniveronica Boyce height E&M 58 [in_i] Falguniveronica Boyce Body Mass Index (Ratio) 29.67 kg/m2 Seymour Polanco MD pulse rate 89 /min Merced dutton blood pressure, cuff size large Mi narciso Ramon blood pressure, diastolic 74 mm[Hg] Mi narciso Ramon blood pressure, systolic 118 mm[Hg] Matty carmen Ramon respiratory rate E&M 16 /min Elizabeth Ramon Inhaled O2 3 L/min Merced dutton weight E&M 142 [lb_av] Merced dutton height E&M 58 [in_i] Merced dutton Body Mass Index (Ratio) 28.63 kg/m2 Seymour Polanco MD blood pressure, cuff size regular Cy tracy Hurd blood pressure, diastolic 70 mm[Hg] Cy ntmelissaa Hurd blood pressure, systolic 116 mm[Hg] Emmy mary Hurd weight E&M 137 [lb_av] Akosua Campbel l Inhaled O2 1 L/min Akosua Campbel l pulse rate 84 /min Akosua Campbel l oxygen saturation, oximetry 92 % Akosua Hurd respiratory rate E&M 16 /min Akosua Hurd height E&M 58 [in_i] Akosua Campbel l Body Mass Index (Ratio) 28.63 kg/m2 Seymour Polanco MD pulse rate 55 /min Akosua Campbel l oxygen saturation, oximetry 95 % Akosua Hurd blood pressure, cuff size regular Cy tracy Hurd blood pressure, diastolic 70 mm[Hg] Cy ntmelissaa Hurd blood pressure, systolic 112 mm[Hg] Emmy mary Hurd Inhaled O2 3 L/min Akosua Campbel l respiratory rate E&M 16 /min Akosua Hurd weight E&M 137 [lb_av] Akosua Campbel l height E&M 58 [in_i] Akosua Campbel l Body Mass Index (Ratio) 29.67 kg/m2 Seymour Polanco MD blood pressure, cuff size regular Ke rri Gruenenfeldchandra blood pressure, diastolic 70 mm[Hg] Ke rri Gruenenfelder blood pressure, systolic 110 mm[Hg] Ker ri Helenanfelder Inhaled O2 3 L/min Tanesha Delarosa lder oxygen saturation, oximetry 91 % Tanesha Rios respiratory rate E&M 16 /min Tanesha powellelder pulse rate 61 /min Tanesha Delarosa lder weight E&M 142 [lb_av] Tanesha Delarosa er height E&M 58 [in_i] Tanesha Delarosa er Body Mass Index (Ratio) 25.91 kg/m2 Seymour Polanco MD pulse rate 74 /min Akosua Guibel l oxygen saturation, oximetry 92 % Akosua Hurd blood pressure, cuff size regular Cy ntdca Hurd blood pressure, diastolic 70 mm[Hg] Cy ntdca Hurd blood pressure, systolic 110 mm[Hg] Emmy thia Hurd respiratory rate E&M 16 /min Akosua Hurd weight E&M 124 [lb_av] Akosua Campbel l height E&M 58 [in_i] Akosua Campbel l Body Mass Index (Ratio) 27.38 kg/m2 Seymour Polanco MD blood pressure, diastolic 60 mm[Hg] [facility] pressure, systolic 100 mm[Hg] Oniel junie Graham Inhaled O2 3 L/min [facility] oxygen saturation, oximetry 90 % [facility] E&M 16 /min [facility] 65 /min [facility] weight E&M 131 [lb_av] [facility] height E&M 58 [in_i] [facility] Body Mass Index (Ratio) 26.12 kg/m2 Seymour Polanco MD blood pressure, diastolic 80 mm[Hg] Da jonsa Rosie blood pressure, systolic 128 mm[Hg] Dac ia Rosie respiratory rate E&M 20 /min Shawnee V oss pulse rate 72 /min [place] Rosie weight E&M 125 [lb_av] [place] Rosie height E&M 58 [in_i] Shawnee Rosie Body Mass Index (Ratio) 25.91 kg/m2 Seymour Polanco MD oxygen saturation, oximetry 92 % Tanesha Rios respiratory rate E&M 18 /min Tanesha martins pulse rate 55 /min Tanesha Isaura morriser blood pressure, cuff size large Ke rri Gabriel blood pressure, diastolic 90 mm[Hg] Ke rri Gabriel blood pressure, systolic 142 mm[Hg] Mary Rios weight E&M 124 [lb_av] Tanesha Isaura lder height E&M 58 [in_i] Tanesha Isaura morriser ALLERGIES Allergy Name Onset Date Reaction Criticality Status TIMAZAPAM Low Criticality active LISINOPRIL Low Criticality active AMBIEN Low Criticality active DEMEROL Low Criticality active THORAZINE Low Criticality active VIOXX Low Criticality active HISTORY OF MEDICATION USE Medication Status Instructions Dates Provider Indications Com ments trazodone 50 mg tablet active Take 1 tablet every night at bedtime insomnia for 30 days Nnamdi Polanco MD clopidogrel 75 mg tablet completed TAKE 1 TABLET BY MOUTH EVERY DAY WITH A MEAL - Wai Benitez lactulose 10 gram/15 mL solution active TAKE 15ML BY MOUTH DAILY NEEDED FOR ABSENT BOWEL MOVEMENTS MORE THAN 3 DAYS Wai Benitez nitrofurantoin monohyd/m-cryst 100 mg capsule active aWi Benitez melatonin 3 mg tablet completed - Wai Benitez memantine 5 mg tablet active Wai Benitez midodrine 10 mg tablet active Take 1 tablet by mouth twice a day [facility] atorvastatin 80 mg tablet active TAKE 1 TABLET BY MOUTH EVERY DAY IN THE EVENING [facility] furosemide 20 mg tablet active TAKE 1 TABLET BY MOUTH EVERY DAY [facility] atorvastatin 80 mg tablet completed Take 1 tablet by mouth every evening - [facility] Plavix 75 mg tablet completed Take 1 tablet by mouth once a day with meals - [facility] furosemide 20 mg tablet completed TAKE ONE TABLET BY MOUTH EVERY DAY - [facility] amitriptyline 25 mg tablet completed - Waiabiodun Benitez pantoprazole 40 mg tablet,delayed release (DR/EC) active Nnamdi Polanco MD oxycodone-acetam inophen 5-325 mg tablet active Nnamdi Polanco MD Lasix 20 mg tablet completed 1 tablet by mouth once a day - Dima Batres 100-62.5-25 mcg blister with device active as directed Tanesha Rios LINZESS CAPSULE completed take 1 tab daily as needed - Tanesha Rios ATORVASTATIN CALCIUM 40 MG ORAL TABLET completed Take 1/2 tablet twice weekly - Nnamdi Polanco MD for elevated cholesterol and abn miguel angel in lower ext. albuterol sulfate 2.5 mg/3 mL (0.083 %) solution for nebulization active as needed Tanesha Rios VITAMIN D3 CAPSULE completed once a day - Tanesha Rios aspirin 81 mg tablet,delayed release (DR/EC) completed 1 tablet by mouth once a day - Nnamdi Polanco MD cyproheptadine 4 mg tablet active as needed Tanesha Rios ALPRAZOLAM 0.5 MG ORAL TABLET DISINTEGRATING completed as needed - Akosua Hurd pantoprazole 20 mg tablet,delayed release (DR/EC) completed once a day - Wai Larkinevelia TEMAZEPAM 30 MG ORAL CAPSULE completed take one pill at bedtime - Akosua Hurd tizanidine 2 mg capsule completed as needed - Tanesha Rios Celexa 20 mg tablet active Take 1 once a day Tanesha Rios ALAVERT 10 MG ORAL TABLET completed take one pill a day - Nnamdi Polanco MD oxycodone 5 mg capsule completed Take every six hours as needed - Wai Larkinevelia COZAAR TABLET completed take one pill a day - Nnamdi Polanco MD Lyrica 100 mg capsule active Take 1 twice a day Tanesha Rios pramipexole 0.5 mg tablet active Take 1 once a day Tanesha Rios propranolol 60 mg tablet completed Take 2 once a day - Wai Ahevelia SOCIAL HISTORY Date Observation Value Provider smoking, year quit 2019 Wai Santacruz [facility] number of years as a smoker 40 a Wai Cadeedin smoking history, tot al pack/day 1 ppd Wai Chayaevelia cigarette use yes Waiabiodun Benitez smoking status Former smoker Wai Cadealex doll smoking, year quit 2019 Waiabiodun Santacruz [facility] number of years as a smoker 40 a Wai Rayoedin smoking history, tot al pack/day 1 ppd Wai Chayaevelia cigarette use yes Wai Benitez smoking status Former smoker Wai Huffman i social history reviewed E&M revi ewed - no changes required Wai Benitez social history E&M S moking History: Alejandrina melendez is a former smoker. Nnamdi Polanco MD smoking, year quit 2019 Tanesha vaner number of years as a smoker 40 a Tanesha Chapiner smoking history, tot al pack/day 1 ppd Tanesha Jarrettelder cigarette use yes Tanesha Jarrett elder smoking status Former smoker Tanesha feldmanelder social history reviewed E&M revi ewed - no changes required Nnamdi Polanco MD social history E&M S moking History: Alejandrina melendez is a former smoker. Nnamdi Polanco MD social history reviewed E&M revi ewed - no changes required Nnamdi Polanco MD smoking, year quit 2019 Falguni Maury is number of years as a smoker 40 a Falguni Austen smoking history, tot al pack/day 1 ppd Falguni Boyce cigarette use yes Falguni Boyce smoking status Former smoker Falguni Austen smoking, year quit 2019 Merced Ramon number of years as a smoker 40 a Merced Ramon smoking history, tot al pack/day 1 ppd Merced Ramon cigarette use yes Merced Dimas nd smoking status Former smoker Merced Georgi todd social history reviewed E&M revi ewed - no changes required Wai Benitez social history E&M S moking History: Alejandrina melendez is a former smoker. Damon Watkins smoking, year quit 2019 Akosua wilson number of years as a smoker 40 a Akosua Hurd smoking history, tot al pack/day 1 ppd Akosua Vickey cigarette use yes Akosuaelieser booker smoking status Former smoker Akosua Messer robyn social history reviewed E&M revi ewed - no changes required Nnamdi Polanco MD smoking status Former smoker Denise Longlamar tt social history reviewed E&M revi ewed - no changes required Denisevirgilio LongRebolledo social history E&M S moking History: Alejandrina melendez is a former smoker. Denise Rebolledo smoking, year quit 2019 Akosua Faria katie number of years as a smoker 40 a Akosua Hurd smoking history, tot al pack/day 1 ppd Akosua Vickey cigarette use yes Akosua Jose Antonio booker social history E&M S moking History: Alejandrina melendez is a former smoker. Dima Church social history reviewed E&M revi ewed - no changes required Dima Church smoking, year quit 2019 Tanesha Ezekiel cotter cigarette use yes Tanesha Kolby [facility] smoking status Former smoker Tanesha Malik [facility] social history E&M S moking History: P atcolten currently smokes every day. P atcolten has been counseled to quit. Nnamdi Polanco MD social history reviewed E&M revi ewed - no changes required Nnamdi Polanco MD smoking/tobacco cess ation, patient education and counseling yes Akosua Hurd number of years as a smoker 40 a Akosua Hurd smoking history, tot al pack/day 1 ppd Akosua Hurd cigarette use yes Akosua booker smoking status Current every day smoker Giana susanna Hurd social history E&M S moking History: P atcolten currently smokes every day. P atcolten has been counseled to quit. Nnamdi Polanco MD social history reviewed E&M revi ewed - no changes required Nnamdi Polanco MD smoking/tobacco cess ation, patient education and counseling yes Frances Naik number of years as a smoker 40 a Frances Naik smoking history, tot al pack/day 1 ppd Frances Naik cigarette use yes Frances Naik smoking status Current every day smoker Marco Antonio Naik number of grandchildren Nnamdi Polanco MD T abdoul Polanco MD social history reviewed E&M revi ewed - no changes required Nnamdi Polanco MD social history E&M S moking History: P nora currently smokes every day. P atcolten has been counseled to quit. Nnamdi Polanco MD smoking/tobacco cess ation, patient education and counseling yes Nnamdi Polanco MD number of years as a smoker 40 a Shawnee Rosie smoking history, tot al pack/day 1 ppd Shawnee Rosie cigarette use yes Shawnee Rosei smoking status Current every day smoker D acia Rosie social history reviewed E&M revi ewed - no changes required Nnamdi Polanco MD number of years as a smoker 40 a Tanesha Garbiel smoking history, tot al pack/day 1 ppd Tanesha Gabriel cigarette use yes Tanesha Kolby tapia smoking status Current some day smoker Ke ramya Gabriel FAMILY HISTORY Family Member Condition Father Negative FH of Coron kevin Artery Disease Mother Negative FH of Coron kevin Artery Disease INSURANCE PROVIDERS Payer name Policy type / Coverage type [place] party ID AARP [employer] [id number] [place] MEDIC[place] Medicare [id number] ADVANCE DIRECTIVES Name Date DISCUSSED - NO DECISION MADE TREATMENT PLAN Date Name Performer [id number] Riaz Ahmedza i [id number],S, Wai Ahmedza i [id number],S, Wai Ahmedza i [id number],S, Wai Ahmedza i [id number],S, Wai Ahmedza i [id number],S, Nnamdi Polanco MD [id number],S, Nnamdi Polanco MD [id number],B, Nnamdi Polanco MD [id number],W, Nnamdi Polanco MD [id number],W, Nnamdi Polanco MD [id number],S, Wai medza i [id number],S, Wai medza i [id number],S, Wai Ahmedza i [id number],S, Wai Ahmedza i [id number],S, Wai Ahmedza i [id number],S, Wai Ahmedza i [id number],S, Wai Ahmedza i [id number],S, Wai Ahmedza i [id number],S, Wai Ahmedza i [id number],S, Wai Ahmedza i [id number],S, Wai Ahmedza i [id number],S, Wai Ahmedza i [id number],S, Shafiq Allah am [id number],S, Shafiq Allah am [id number],S, H er updated medication list for this problem includes: Propranolol 60 Mg Tablet (Propranolol) ..... Take 2 once a day Aspirin 81 Mg Tablet,delayed Release (dr/ec) (Aspirin) ..... 1 tablet by mouth once a day Lasix 20 Mg Tablet (Furosemide) ..... 1 tablet by mouth once a day [facility] [id number],S,On O2 chronic ally [facility] [id number],S, [facility] Cardiology: H er updated medication list for this problem includes: Atorvastatin 80 Mg Tablet (Atorvastatin) ..... Take 1 tablet by mouth every day in the evening [facility] Cardiology [facility] Cardiology: H er updated medication list for this problem includes: Furosemide 20 Mg Tablet (Furosemide) ..... Take 1 tablet by mouth every day [facility] Cardiology: T he following medications were removed from the medication list: Clopidogrel 75 Mg Tablet (Clopidogrel) ..... Take 1 tablet by mouth every day with a meal [facility] Cardiology: H er updated medication list for this problem includes: Albuterol Sulfate 2.5 Mg/3 Ml (0.083 %) Solution For Nebulization (Albuterol sulfate) ..... As needed Trelegy Ellipta 100-62.5-25 Mcg Blister With Device ([id number]) ..... As directed [facility] Cardiology: H er updated medication list for this problem includes: Furosemide 20 Mg Tablet (Furosemide) ..... Take 1 tablet by mouth every day [facility] Cardiology: H er updated medication list for this problem includes: Pantoprazole 40 Mg Tablet,delayed Release (dr/ec) (Pantoprazole) [facility] Cardiology [facility] Cardiology: H er updated medication list for this problem includes: Albuterol Sulfate 2.5 Mg/3 Ml (0.083 %) Solution For Nebulization (Albuterol sulfate) ..... As needed Trelegy Ellipta 100-62.5-25 Mcg Blister With Device ([id number]-[id number]-[id number]) ..... As directed Wai Cadezalavon Cardiology: H er updated medication list for this problem includes: Atorvastatin 80 Mg Tablet (Atorvastatin) ..... Take 1 tablet by mouth every day in the evening Wai Cadezalavon Cardiology: H er updated medication list for this problem includes: Furosemide 20 Mg Tablet (Furosemide) ..... Take 1 tablet by mouth every day Wai evelia Cardiology: B P today: 92/70 P rior BP: 112/78 (02/02/2023) Orders: E KG ([id number]) C omplete Echo ([id number]) Wai Benitez Cardiology Wai Benitez Cardiology Wai Cadezalavon Cardiology Wai Ahmedzalavon Cardiology Wai Ahmedzai Cardiology Wai Larkinmedzai Cardiology Nnamdi Polanco MD Cardiology Nnamdi Polanco MD Cardiology Nnamdi Polanco MD Cardiology Nnamdi Polanco MD Cardiology Nnamdi Polanco MD Telehealth Wai Larkinmedzai Telehealth Wai Larkinmedzai Telehealth Wai Ahmedzai Telehealth Wai Ahmedzai Telehealth Wai Ahmedzai Telehealth Wai Ahmedzai Cardiology Wai Ahmedzai Cardiology Wai Ahmedzai Cardiology Wai Ahmedzai Cardiology Wai Ahmedzai Cardiology Wai Ahmedzai Cardiology Wai Ahmedzai Cardiology [facility] Cardiology [facility] Cardiology: H er updated medication list for this problem includes: Propranolol 60 Mg Tablet (Propranolol) ..... Take 2 once a day Aspirin 81 Mg Tablet,delayed Release (dr/ec) (Aspirin) ..... 1 tablet by mouth once a day Lasix 20 Mg Tablet (Furosemide) ..... 1 tablet by mouth once a day [facility] Cardiology:On O2 chronically [facility] Cardiology [facility] Cardiology follow up :No edema o f the BLE today. [facility] Cardiology follow up :BP control is satifactory at 112/70. Continue on antihypertensives. [facility] Cardiology follow up :Pt on chronic use of O2. Former smoker. SOB not worsening. [facility] Cardiology follow up :Patient had normal echo today 08/06/20. CXR results pending from 08/06/20. Denise Rebolledo Cardiology follow up Nnamdi madison MD Cardiology follow up Nnamdi madison MD Cardiology follow up Nnamdi madison MD Cardiology follow up Nnamdi madison MD Cardiology follow up Nnamdi madison MD Cardiology follow up Nnamdi madison MD Cardiology follow up Nnamdi madison MD Cardiology follow up Nnamdi madison MD Cardiology follow up Nnamdi madison MD Cardiology follow up Nnamdi madison MD Cardiology Nnamdi Polanco MD Cardiology Nnamdi Polanco MD Cardiology Nnamdi Polanco MD Cardiology Nnamdi Polanco MD Cardiology Nnamdi Polanco MD Cardiology follow up Nnamdi madison MD Cardiology follow up : B P today: 128/80 P rior BP: 142/90 (11/25/2016) Nnamdi Polanco MD Cardiology follow up:On suppleme ntal O2 Nnamdi Polanco MD Cardiology follow up : H er updated medication list for this problem includes: Atorvastatin Calcium 40 Mg Oral Tablet (Atorvastatin calcium) ..... Take 1/2 tablet twice weekly Nnamdi Polanco MD Cardiology follow up Nnamdi madison MD Cardiology New Patient Nnamdi ramos MD Date Name Complete Echo Carotid Duplex Bilat eral Arterial Duplex Bi-L ower EX Complete Echo X-Ray, Chest - Routi ne PROTHROMBIN TIME WIT H INR CBC (INCLUDES DIFF/P LT) LIPID PANEL BASIC METABOLIC PANE L W/EGFR HISTORY OF PROCEDURES Procedure Date Procedure Name Provider Procedure Notes S tatus Complex e/m visit add on Nnamdi Polanco MD completed EKG Nnamdi Polanco MD completed EKG Nnamdi Polanco MD completed EKG Nnamdi Polanco MD completed EKG Nnamdi Polanco MD completed Stress EKG Catracho Garcia MD complet ed Regadenoson, 4 units Nnamdi Polanco MD completed Cardiolite, 2 units Nnamdi Polanco MD completed SPECT Images Catracho Garcia MD compl eted EKG Nnamdi Polanco MD completed SNOMED-CT: [id number] Current Medications Documented Nnamdi Polanco MD completed
--- OUTSIDE RECORDS SUMMARY | 2024-04-10 04:33 | XMS_ITS | Continuity of Care Document ---
Author Organization 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 Plan of Treatment Reminders Order Date Submit Date Provider Last Modified By Organization Details Last Modified Time Details Appointments ANY 15 025 10:00AM CIARAN Dickerson Not available Not available Not available Lab None record ed. Referral None record ed. Procedures None record ed. Surgeries None record ed. Imaging None record ed. Medication Orders None record ed. Patient TargetsNo targets recorded. Patient InstructionsNo instructions recorded. Reason for Referral None Reported. Results Created Date Observation Date Name Description Value Unit Range Abnormal Flag Note LastModifiedBy Organization Detail LastModifiedTime 12/30/19 24 12/29/2023 CT, angio gram, chest , w/ contr ast No observ ation record ed. [address], [address], 12/30/2023 18:29:34 12/30/19 24 12/29/2023 XR, chest , 2 view No observ ation record ed. [address], [address], 12/30/2023 18:29:54 12/31/19 24 12/30/2023 XR, chest , 2 view No observ ation record ed. [address], [address], 12/31/2023 14:47:54 01/01/20 24 01/01/2024 bariu m swall ow study No observ ation record ed. [address], [place], [address], 01/01/2024 12:17:01 01/03/20 24 01/03/2024 XR, chest No observ ation record ed. [address] [facility] [address], [place], [address], 01/03/2024 14:46:27 01/07/20 24 12/29/2023 , [facility] ardio gram No observ ation record ed. BARCODE Not Available 2023 16:41:34 01/14/20 24 01/14/2024 XR, chest No observ ation record ed. [address] [place], [address], 01/14/2024 17:38:31 01/18/20 24 01/18/2024 XR, chest , 2 view No observ ation record ed. [address] [facility], [place], [address], 01/26/2024 11:09:59 01/31/2001/30/2024 XR, chest No observ ation record ed. [address] [facility] [address], [place], [address], 02/01/2024 09:41:38 02/01/2002/01/2024 XR, chest , 2 view No observ ation record ed. [address] [facility] [address], [place], [address], 02/01/2024 13:29:44 02/01/2002/01/2024 CT, chest , w/ contr ast No observ ation record ed. [address] [facility] [address], [place], [address], 02/01/2024 14:22:24 02/02/2002/02/2024 XR, chest , 2 view No observ ation record ed. [address], [place], [address], 02/02/2024 13:53:52 02/04/2002/04/2024 XR, chest , 2 view No observ ation record ed. [address], [place], [address], 02/04/2024 23:23:39 02/07/2002/06/2024 XR, chest No observ ation record ed. [address], [place], [address], 02/07/2024 13:00:44 02/09/2001/30/2024 [place], [facility] ardio gram No observ ation record ed. BARCODE Not Available 2023 10:21:50 03/11/2003/10/2024 CT, angio gram, chest , w/ contr ast No observ ation record ed. [address] [facility], [place], [address], 03/11/2024 08:39:25 03/13/2003/12/2024 XR, chest , 2 view No observ ation record ed. [address] [address], [place], [address], 03/13/2024 09:59:46 03/15/2003/15/2024 XR, chest , 2 view No observ ation record ed. [address], [place], [address], 03/15/2024 16:03:55 03/24/20 24 03/24/2024 XR, chest No observ ation record ed. [address], [place], [address], 03/25/2024 13:23:04 04/03/20 24 04/03/2024 XR, chest , 2 view No observ ation record ed. [email or web address] [facility] [address], [place], [address], 04/04/2024 08:27:42 Result Notes None recorded. Problems Name Problem SNOMED Code Status Onset Date Resolution Date Notes Provider Name and Address Organization Details Recorded Time Chronic insomnia 082776078 Active 2023 CIARAN Dickerson Attn: Judy acevedo,[address] [facility], [place], [address], [place] [facility] 4 21:37:02 Iron deficiency anemia 98346120 Active 2023 CIARAN Dickerson Attn: Judy acevedo,[address] [facility], [place], [address], [place] [facility] 4 21:37:03 Chronic obstructive pulmonary disease 54485721 Active 2023 CIARAN Dickerson Attn: Judy acevedo,[address] [facility], [place], [address], [place] [facility] 4 21:42:51 Major depressive disorder 804197416 Active 2023 CIARAN Dickerson Attn: Judy acevedo,[address] 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, [place], [address], [place] [facility] 4 21:44:50 Severe chronic obstructive pulmonary disease 032435972 Active 2023 CIARAN Dickerson Attn: Judy acevedo,[address] [facility], [place], [address], [place] [facility] 4 15:10:04 Pulmonary embolism 42427183 Active 2023 CIARAN Dickerson Attn: Accountbertrand g,[address] [facility] [address], [place], [address], [place] [facility] 4 15:10:05 Benign essential hypertensio n 5095206 Active 2023 CIARAN Dickerson Attn: Accountin g,[address], [place], [address], [place] [facility] 4 15:10:06 Long-term oxygen therapy Active 2023 CIARAN Dickerson Attn: Accountin g,[address] [facility] [address], [place], [address], [place] [facility] 4 15:10:07 Long-term drug therapy Active 2023 CIARAN Dickerson Attn: Accountbertrand g,[address] [facility], [place], [address], [place] [facility] 4 16:29:08 Problem Notes None recorded. Procedures Surgical History Date Name Laterality Status Provider Name and Address Organization Details Recorded Time Eye Surgery completed Norman Kenny MA [facility] 09/11/2023 11:22:34 Back Surgery completed Norman Kenny MA [facility] 09/11/2023 11:22:39 Hernia Repair completed Norman Kenny MA [facility] 09/11/2023 11:22:45 Tonsillectomy completed Norman Kenny MA [facility] 09/11/2023 11:22:49 Breast Surgery completed Norman Kenny MA [facility] 09/11/2023 11:22:56 hysterectomy completed Norman Kenny MA [facility] 09/11/2023 11:23:02 Imaging Results None recorded. Procedure Notes None recorded. Medical Equipment None Reported. Allergies No known drug allergies Medications Name Sig Start Date Stop Date Status Note LastModified by Organization Details LastModified Time Prescript ion - Clarifica tion active canceled rx. Not Available Not Available Not Available amoxicill in 500 mg capsule TAKE 1 CAPSULE BY MOUTH EVERY 8 HOURS 06/15 completed Not Available Not Available Not Available atorvasta tin 80 mg tablet TAKE 1 TABLET BY MOUTH EVERY DAY IN THE EVENING active Not Available Not Available No t Available nystatin 100,000 unit/mL oral suspensio n active Not Available Not Available Not Available albuterol sulfate 2.5 mg/3 mL (0.083 %) solution for nebulizat ion active Not Available Not Available Not Available trazodone 50 mg tablet active Not Available Not Available Not Available fluconazo le 150 mg tablet TAKE 1 TABLET BY MOUTH ON DAY 1 AND 3 06/15 completed Not Available Not Available Not Available hydrocodo ne 5 mg-acetam inophen 325 mg tablet 09/10 completed Not Available Not Available Not Available prednison e 20 mg tablet 01/27 completed Not Available Not Available Not Available melatonin 3 mg tablet TAKE 1 TABLET BY MOUTH EVERY DAY AT BEDTIME 01/27 completed Not Available Not Available Not Available clopidogr el 75 mg tablet TAKE 1 TABLET BY MOUTH EVERY DAY WITH A MEAL active Not Available Not Available No t Available amlodipin e 5 mg tablet active Not Available Not Available Not Available ciproflox acin 500 mg tablet TAKE 1 TABLET BY MOUTH EVERY 12 HOURS 06/15 completed Not Available Not Available Not Available sulfameth oxazole 800 mg-trimet hoprim 160 mg tablet 01/27 completed Not Available Not Available Not Available pramipexo le 0.5 mg tablet TAKE 1 TABLET BY MOUTH THREE TIMES A DAY active Not Available Not Available No t Available cyprohept adine 4 mg tablet TAKE 1 TABLET BY MOUTH EVERY 6 TO 8 HOURS NEEDED active Not Available Not Available No t Available oxycodone -acetamin ophen 5 mg-325 mg tablet 1 TABLET ORALLY EVERY 4 HOURS NEEDED FOR PAIN (SCALE SCORE 7-10) FOR 30 DAYS 06/28 completed Not Available Not Available Not Available citalopra m 20 mg tablet TAKE 1 TABLET BY MOUTH EVERY EVENING active Not Available Not Available No t Available amitripty line 25 mg tablet TAKE 1 TABLET BY MOUTH EVERYDAY AT BEDTIME active Not Available Not Available No t Available cephalexi n 500 mg capsule Take 1 capsule every 6 hours by oral route. 09/10 completed Not Available Not Available Not Available pantopraz ole 40 mg tablet,de layed release TAKE 1 TABLET BY MOUTH EVERY DAY active Not Available Not Available No t Available bisacodyl 5 mg tablet,de layed release active Not Available Not Available Not Available mupirocin 2 % topical ointment APPLY TOPICALL Y 3 TIMES A DAY 06/28 completed Not Available Not Available Not Available furosemid e 20 mg tablet TAKE 1 TABLET BY MOUTH EVERY DAY active Not Available Not Available No t Available mirtazapi ne 15 mg tablet active Not Available Not Available Not Available nystatin 100,000 unit/gram topical powder APPLY 1 TOPICAL APPLICAT ION EVERY 12 HOURS active Not Available Not Available No t Available polyethyl ashley glycol 3350 17 gram/dose oral powder active Not Available Not Available Not Available oxycodone -acetamin ophen 7.5 mg-325 mg tablet TAKE 1 TABLET BY MOUTH EVERY 6 HOURS NEEDED 01/27 completed Not Available Not Available Not Available amoxicill in 875 mg-potass ium clavulana te 125 mg tablet TAKE 1 TABLET BY MOUTH TWICE A DAY FOR 7 DAYS FOR UTI 06/15 completed Not Available Not Available Not Available amoxicill in 500 mg-potass ium clavulana te 125 mg tablet 01/27 completed Not Available Not Available Not Available oxycodone 5 mg tablet active Not Available Not Available Not Available hydrocort isone 1 % topical cream with perineal applicato r APPLY 1 APPLICAT ION ONTO THE AFFECTED AREA(S) ON THE SKIN EVERY 12 HOURS 06/28 completed Not Available Not Available Not Available midodrine 10 mg tablet active Not Available Not Available Not Available escitalop halle 10 mg tablet TAKE 1 TABLET BY MOUTH EVERY DAY 06/15 completed Not Available Not Available Not Available Vitamin D3 25 mcg (1,000 unit) capsule Take 1 capsule every day by oral route. active Pt has own bottle Not Available Not Available Not Available Premarin 0.625 mg/gram vaginal cream active Not Available Not Available Not Available memantine 5 mg tablet TAKE 1 TABLET BY MOUTH TWICE A DAY active Not Available Not Available No t Available nitrofura ntoin monohydra te/macroc rystals 100 mg capsule TAKE 1 CAPSULE BY MOUTH EVERY DAY active Not Available Not Available No t Available lactulose 10 gram/15 mL oral solution TAKE 15ML BY MOUTH DAILY NEEDED FOR ABSENT BOWEL MOVEMENT S MORE THAN 3 DAYS active Not Available Not Available No t Available pregabali n 100 mg capsule TAKE 1 CAPSULE BY MOUTH IN THE MORNING AND AT BEDTIME active Not Available Not Available No t Available cranberry fruit 4200mg daily 8am active pt has own bottle Not Available Not Available Not Available aripipraz ole 2 mg tablet Take 1 tablet every day by oral route. active Not Available Not Available No t Available cholecalc iferol (vitamin D3) 25 mcg (1,000 unit) tablet active Not Available Not Available Not Available FeroSul 325 mg (65 mg iron) tablet TAKE 1 TABLET BY MOUTH EVERY OTHER DAY active Not Available Not Available No t Available Eliquis 5 mg tablet active Not Available Not Available No t Available PreserVis ion AREDS-2 250 mg-90 mg-40 mg-1 mg capsule active Not Available Not Available Not Available PreserVis ion AREDS-2 Take 1 @ 8am & 8pm active Pt has own bottles (3) Not Available Not Available Not Available naloxone 4 mg/actuat ion nasal spray 1 SPRAY INTRANAS ALLY ONCE 1 DAYS 07/14 completed Not Available Not Available Not Available Trelegy Ellipta 100 mcg-62.5 mcg-25 mcg powder for inhalatio n USE 1 inh DAILY active Not Available Not Available No t Available Vitals Date Recorded Body height Body mass index (BMI) Body weight Oxygen saturation Oxygen saturation in Arterial blood by Pulse oximetry Inhaled oxygen flow rate Heart rate Systolic blood pressure Diastolic blood pressure Provider Name and Address Organization Details Last Updated DateTime 4 149.86 cm 29.3 kg/m2 27173.8 9 g 94 % 94 % 2 L/min 112 /min 160 mm[Hg] 92 mm[Hg] Layla Fitzgerald MA [facility] 4 14:41:23 Date Recorded Respiratory rate Systolic blood pressure Diastolic blood pressure Systolic blood pressure Diastolic blood pressure Provider Name and Address Organization Details Last Updated DateTime 4 20 /min 142 mm[Hg] 82 mm[Hg] 132 mm[Hg] 86 mm[Hg] CIARAN Dickerson Attn: Judy acevedo,[address] [place], [address], [facility] 4 15:07:48 Social History Question Answer Notes LastModified by Organizat ion Details LastModified Time Tobacco Smoking Status Never Smoker Norman Kenny MA null, [place] - [facility] 09/11/2023 11:12:08 Do You Have An Advance Directive? No Information n ot available 09/10/2023 What Is Your Level Of Alcohol Consumption? None Information not available 09/11/2023 Are You Blind Or Do You Have Difficulty Seeing? Yes Information n ot available 09/10/2023 What Is Your Level Of Caffeine Consumption? Occasional Information not available 09/11/2023 In The 14 Days Before Symptom Onset, Have You Had Close Contact With A Laboratory-confirm ed COVID-19 While That Case Was Ill? No Information n ot available 09/10/2023 In The 14 Days Before Symptom Onset, Have You Had Close Contact With A Person Who Is Under Investigation For COVID-19 While That Person Was Ill? No Information not available 09/10/2023 Have You Been To An Area Known To Be High Risk For COVID-19? No Information not available 09/10/2023 Are You Currently Employed? No Information not available 09/10/2023 Are You Deaf Or Do You Have Serious Difficulty Hearing? Yes Information not available 09/10/2023 What Type Of Diet Are You Following? REGULAR Information n ot available 09/10/2023 Are There Any Guns Present In Your Home? No Information not available 09/10/2023 What Was The Date Of Your Most Recent Tobacco Screening? 01/28/2024 [email or web address] Information not available 01/28/2024 Do You Use Your Seat Belt Or Car Seat Routinely? Yes Information not available 09/10/2023 Do You Have Smoke And Carbon Monoxide Detectors In Your Home? Yes Information not available 09/10/2023 Do You Feel Stressed (tense, Restless, Nervous, Or Anxious, Or Unable To Sleep At Night)? [id number] Information not available 09/11/2023 Do You Use Any Illicit Or Recreational Drugs? No Information not available 09/10/2023 Do You Use Sunscreen Routinely? No Information not available 09/11/2023 Has Tobacco Cessation Counseling Been Provided? Yes Information not available 09/10/2023 On What Date Was Tobacco Cessation Counseling Provided? 09/11/2023 Information not available 09/11/2023 Do You Or Have You Ever Used Any Other Forms Of Tobacco Or Nicotine? No Information not available 09/11/2023 Sex: Female Functional Status Question Answer Note LastModified by Organization D etails LastModified Time Are you able to care for yourself? Yes Information n ot available 09/10/2023 What is your exercise level? None Information not available 09/10/2023 Mental Status None recorded. Family History Relationship Description Onset Age of this Age Resolved Age Notes LastModified by Organization Details LastModified Time Mother Hypertensive disorder [email or web address] Not available 2023 11:23:12 Mother Osteoporosis [email or web address] Not avai lable 09/11/2023 11:23:19 Medical History Condition Response Coronary Artery Disease N Other N High Blood Pressure N Atrial Fibrillation N Kidney or Bladder Problems N Thyroid Problems N GI Problems Y Depression Y COPD Y Blood Clots N Skin Problems N Anemia Y Heart Attack ([place]) N Anxiety Disorder Y Diabetes N Muscle, Joint, or Bone Problems Y Seizures/Epilepsy N Acid Reflux (GERD) Y Cancer N Stroke N Asthma N Allergies Y High Cholesterol N Hepatitis N Liver Disease N Headaches Y Heart Failure N Osteoporosis Y Gynecological History Statement/Question Response Menses Monthly N Current Control Method Other Obstetrics History GPAL:G 0 P 0 0 0 0 Immunizations Vaccine Type Date Status Note Provider Nam e and Address Organization Details Recorded Time Influenza, adjuvanted, quadrivalent, PF 03/16/2023 completed Norman [place], [place] [facility] 01/27/2024 14:06:56 COVID-19, mRNA, LNP-S, PF, 30 mcg/0.3 mL dose 06/09/2020 completed [place] [facility] 01/27/2024 14:06:56 COVID-19, mRNA, LNP-S, PF, 30 mcg/0.3 mL dose 07/01/2020 completed [place] [facility] 01/27/2024 14:06:56 COVID-19, mRNA, LNP-S, PF, 30 mcg/0.3 mL dose 03/16/2021 [place] [facility] 01/27/2024 14:06:56 COVID-19, mRNA, LNP-S, PF, edwin-sucrose, 30 mcg/0.3 mL 03/16/2023 [place] [facility] 01/27/2024 14:06:56 Tdap 05/09/2021 [place] [facility] 01/27/2024 14:06:56 Influenza, high-dose, trivalent, PF 01/25/2015 [place] [facility] 01/27/2024 14:06:56 Influenza, high-dose, trivalent, PF 02/19/2018 [place] [facility] 01/27/2024 14:06:56 Past Encounters Encounter ID Performer Location Encounter Start Date Encounter Closed Date Diagnosis/Indication Diagnosis SNOMED-CT Code Diagnosis ICD10 Code [id number] CIARAN Dickerson [facility] [place] [facility] [address] [place] [address] 01/28/2024 14:31:00 02/01/2024 14:58:58 Pulmonary embolism 46988263 I26.99 Severe chr onic obstructive pulmonary disease 905024450 J44.9 Long-term oxygen therapy 685194795 Z99.81 Benign ess ential hypertension 4950659 I10 Chronic insomnia 1524380 04 F51.04 Long-term drug therapy 257336731 Z79.899 Major depr essive disorder 865775698 F32.9 Health Concerns Section Related Observation LastModified by Organization Detai ls LastModified Time None Recorded Concern Status LastModified by Organization Details LastModified Time None Recorded Payers Encounter Date Sequence Insurance Name Policy Number Policy Grossman Covered Member ID Grossman Member ID Guarantor Name 01/28/2024 1 [place] Jazmin Bullard [id number] Jazmin Bullard 01/28/2024 2 [employer] HE[employer] OPTIONS (MEDICARE SUPPLEMENT) Jazmin Bullard [id number] Jazmin Bullard Notes Date Note Type Note Provider Name and Address Organization Details Recorded Time 4 text/html Anxiety/DepressionReport ed bypatient.Notes:Mood is overall improved and stable todayCOPDReported bypatient.Notes:severe copd. on chronic oxygen. Her oxygen has been decreased to 2 L with activity and 1 L at rest and this has been very stabilizing for herInsomniaReported bypatient.Notes:chronic issue. The hospital now has a on mirtazapine that she needs a refill on today. She does feel like this was helpful Patient is here for hospital follow-up from aspiration pneumonia and she was also found to have pulmonary embolism and placed on anticoagulation. CIARAN Dickerson Attn: Accounting,[address] [place], [address], [facility] 02/14/2024 16:32:33 OBGyn Episode No OBEpisode recorded.
--- OUTSIDE RECORDS SUMMARY | 2024-04-10 04:33 | XMS_ITS | Data Portability ---
Author Organization [place] - S [facility], Main Office Address [address] [place] [address] Assessment Encounter Date Assessment Date Assessment LastModified by Organization Details LastModified Time 03/11/2023 03/11/2023 I have reconciled the patient's medications post their discharge from inpatient facility. Not available 03/11/2023 13:05:09 Plan of Treatment Reminders Order Date Submit Date Provider Last Modified By Organization Details Last Modified Time Details Appointments None recorded. Lab hepatic function panel, serum 2022 023 [email or web address] 4 [facility], [address] [place], [address], 3 15:24:14 BMP, serum or plasma 2022 023 [email or web address] 4 [facility], [address] [place], [address], 3 15:24:14 TSH + free T4, serum 2022 023 [email or web address] 4 [facility], [address] [place], [address], 3 15:24:14 urinalysis, complete 2022 023 [email or web address] 4 [facility], [address] [place], [address], 3 15:24:14 lipid panel, serum 2022 023 [email or web address] 4 [facility], [address] [place], [address], 3 15:24:14 ferritin, serum or plasma 2022 023 [email or web address] 4 [facility], [address] [place], [address], 3 15:24:14 iron + TIBC + [facility]ritin, [facility] [address] [place], [address], 3 18:01:54 TSH + free T4, serum [address] [facility], [address] [place], [address], 4 10:17:59 vitamin B12 + folate, serum or blood [address] [facility], [address] [place], [address], 4 10:18:00 magnesium, serum or plasma [address] [facility], [address] [place], [address], 4 10:18:00 culture, urine [address] [facility], [address] [place], [address], 4 10:18:00 urinalysis, complete [address] [facility], [address] [place], [address], 4 10:18:00 iron + TIBC + ferritin, serum [email or web address] [facility], [address] [place], [address], 4 10:18:01 BMP, serum or plasma [email or web address] [facility], [address] [place], [address], 4 10:18:00 CBC w/ auto diff [email or web address] [facility], [address] [place], [address], 4 10:18:00 hepatic function panel, serum [email or web address] [facility], [address] [place], [address], 4 10:18:[address] referral - Establish care - COPD/oxygen 2022 023 [email or web address] 25 Juvenal Copeland MD, [address] [facility] [address], [place], [address], 3 11:41:27 Procedures None recorded. Surgeries None recorded. Imaging None recorded. Medication Orders Trelegy Ellipta 100 mcg-62.5 mcg-25 mcg powder for inhalation 2022 023 [facility] #[id number], [address], [place], [address], 3 14:40:33 albuterol sulfate HFA 90 mcg/actuati on aerosol inhaler 2022 023 [facility] #[id number], [address], [place], [address], 3 14:40:34 albuterol sulfate 2.5 mg/3 mL (0.083 %) solution for nebulizatio n 2022 023 [facility]acy #[id number], [address], [place], [address], 14:40:33 amoxicillin 875 mg-sam moscoso clavulanate 125 mg tablet 2022 023 [facility] #[id number], [address] , [place], [address], 13:05:52 Patient TargetsNo targets recorded. Patient Instructions Encounter Date Encounter Id Patient Instructions Last Modified By Organization Details Last Modified Time 12/30/2022 [id number] dementia rating scale-2* Not available 01/10/2023 23:12:13 multi-dimensiona l health assessment questionnaire* Not available 01/10/2023 23:12:13 care plan* Not available 01/10 23:12:13 advance directiv es: care instructions Not available 01/10/2023 23:12:13 advance care planning: care instructions Not available 01/10/2023 23:12:13 [place] Advance Directives Not available 01/10/2023 23:12:13 Personalized a lth Plan and Screening Recommendations Advance Directives - Do you have one? Yes Advance Directives - Do we have your advance directive on file in your health record? Primary Prevention/Interven tion (prevents or decreases the chance of common diseases from occurring) Smoking Risk: Non Smoker Alcohol Misuse Screening: Negative Weight: Appropriate Physical activity: Nutrition: Good Average Fall Risk (screened today): Refer to attached handout Preventing Falls: After your Visit Recommend regular use of cane or walker Vaccines Pneumococcal: Ordered Recommended today Recommended today, but you have declined No further needed Influenza: Chronic Disease Risks Stroke: I have no recommendations Act sumi diagnosis, Continue current treatment plan Heart Attack: I have no recommendations Act sumi diagnosis, Continue current treatment plan Clogging of the Arteries: I have no recommendations Act sumi diagnosis, Continue current treatment plan Diabetes: Secondary Prevention/Interven tion (detects treatable diseases before they may cause symptoms, disability, or ) Breast Cancer Screening with mammogram: Cervical/Uterine/Ov justen Cancer Screening: Osteoporosis Screening: Date Screening Last Performed: Colon Cancer Screening: Date Screening Last Performed: Eye Disease Screening: Ordered Recommended today Dementia Risk: Low Intermediate Depression Screening: Negative Positive Not available 01/10/2023 23:11:53 03/11/2023 [id number] Thank you for yo ur visit to our office today. We would like to request that you reach out to your referring or previous provider and request that they send us a Summary of Care in electronic form, so that we may have it on file in your medical record. At your visit, we had the medical records we needed to provide you with the best possible care; however, for insurance purposes, an electronic Summary of Care is beneficial. Thank you for your assistance in obtaining this information and we look forward to providing continued care to you. Please review your medication list from the Summary of Care for this visit. If there are any differences from what you are currently taking at home, please call us to discuss. 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 [email or web address] [facility]) [address] [place], [address], 11/11/2022 15:31:47 12/18/19 23 12/17/2022 XR, chest , 2 view No observ ation record ed. [facility] ([facility]) [address] [place], [address], 12/18/2022 12:22:21 02/07/20 23 10/01/2022 CT, head, w/o contr ast No observ ation record ed. [email or web address] [facility] ([facility]) [address] [place] [address] [address], [place], [address], 02/10/2023 15:24:50 03/12/20 23 02/23/2023 XR, chest , 2 view No observ ation record ed. [facility] [address], [place], [address], 03/13/2023 00:16:45 04/23/19 24 04/16/2023 XR, chest , 2 view No observ ation record ed. [email or web address] [facility] [address], [place], [address], 04/24/2023 14:48:19 Result Notes None recorded. Problems Name Problem SNOMED Code Status Onset Date Resolution Date Notes Provider Name and Address Organization Details Recorded Time Renewal of prescripti on Active 2021 Not Available [facility] 3 10:41:23 Minimal cognitive impairment 846594002 Active 2021 Not Available [facility] 3 10:41:23 Chronic obstructiv e pulmonary disease 80853857 Active 2020 Not Available [facility] 3 10:41:23 Pressure injury of buttock 253629234 Active 2021 Not Available [facility] 3 10:41:23 Pneumonia 099920501 Active 2020 Not Available [facility] 3 10:41:23 Gastroesop hageal reflux disease 300363219 Active 2021 Not Available [facility] 3 10:41:23 Gastroesop hageal reflux disease without esophagiti s 130823042 Active 2021 Not Available [facility] 3 10:41:23 Long-term drug therapy Active 2021 Not Available [facility] 3 10:41:23 Anemia 182025749 Active 2021 Not Available [facility] 3 10:41:23 Eruption 716915975 Active 2021 Not Available [facility] 3 10:41:23 Recurrent falls 695971329 Active 2021 Not Available [facility] 3 10:41:23 Severe chronic obstructiv e pulmonary disease 608496656 Active 2021 Not Available [facility] 3 10:41:23 Restless legs 77672834 Active 2021 Not Available [facility] 3 10:41:23 Major depressive disorder 103315290 Active 2021 Not Available [facility] 3 10:41:23 Neuropathy 085931227 Active 2018 Not Available [facility] 3 10:41:23 Hypokalemi a 90074384 Active 2021 Not Available [facility] 3 10:41:23 Cough 77116494 Active 2021 Not Available [facility] 3 10:41:23 Hyperlipid emia 84041866 Active 2021 Not Available [facility] 3 10:41:23 Candidiasi s of vagina 66510142 Active 2021 Not Available [facility] 3 10:41:23 Obstructiv e sleep apnea syndrome 35641652 Active 2020 Not Available [facility] 3 10:41:23 Neck pain 76489383 Active 2018 Plates in C2-3 Not Available [facility] 3 10:41:23 COVID-19 050457386 Active 2021 Not Available [facility] 3 10:41:23 Iron deficiency anemia 28622407 Active 2021 Not Available [facility] 3 10:41:23 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 142041925031 Active 2020 Not Available [facility] 3 10:41:23 Dyspnea on exertion 72008537 Active 2022 Not Available [facility] 3 10:41:23 Fatigue 28581155 Active 2022 Not Available [facility] 3 10:41:23 Malaise and fatigue 290076751 Active 2022 Not Available [facility] 3 10:41:23 Abnormal findings on diagnostic imaging of lung 530345288 Active 2022 Not Available [facility] 3 10:41:23 Tremor 56017322 Active 2022 Not Available [facility] 3 10:41:23 Dehydratio n 55337957 Active 2022 Not Available [facility] 3 10:41:23 Acute urinary tract infection 396910434 Active 2022 Not Available [facility] 3 10:41:23 Left lower zone pneumonia 182028460 Active 2022 Not Available [facility] 3 10:41:23 Urinary tract infectious disease 52177723 Active 2022 Not Available [facility] 3 10:41:23 Recurrent urinary tract infection 287481857 Active 2023 CIARAN Dickerson [address], [address] , [facility] 14:41:56 Notes:Some problems listed i n Document: #[id number] could not be added to this patient's chart. Please review this document and add these problems to the patient's chart manually as needed. Problem Notes None recorded. Procedures Surgical History Date Name Laterality Status Provider Name and Address Organization Details Recorded Time 12/31/19 Medicare Wellness CPT Code, subsequent completed Inez Ogden RN [facility] 12/30/2022 14:35:06 09/02/19 Date of Last Colonoscopy completed Not Available [facility] 06/11/2022 06:40:01 Imaging Results Imaging Date Name Status LastModified by [email or web address] Details LastModified Time 11/05/2022 XR, chest, 2 view completed [email or web address] [facility] ([facility]) [address] [place], [address], 11/11/2022 15:31:47 12/17/2022 XR, chest, 2 view completed [facility] ([facility]) [address] [place], [address], 12/18/2022 12:22:21 10/01/2022 CT, head, w/o contrast completed [address] (Lab) [address] [facility] [address], [place], [address], 02/10/2023 15:24:50 02/23/2023 XR, chest, 2 view [email or web address] [place], [place] [address] [facility] [address], [place], [address], 03/13/2023 00:16:45 04/16/2023 XR, chest, 2 view completed [place] [id number] [facility] [address], [place], [address], 04/24/2023 14:48:19 Procedure Notes None recorded. Medical Equipment None Reported. Allergies Allergen ID Allergen Name Allergen Category Reaction Reaction Severity Criticality Documentation Date Start Date Code Code System Note Provider Name and Address Organization Details Recorded Time 26809 Vioxx medicatio n itching severe Not available 06/11/2022 81907 9 RxNorm requi red steri ods Not Available [facility] 3 06:52:58 95325 chlorprom azine hydrochlo ride medicatio n other moderate Not available 06/11/2022 25322 8 RxNorm Climb ing the wall Not Available [facility] 3 06:52:58 22339 Demerol medicatio n nausea severe Not available 06/11/2022 44268 1 RxNorm Not Available [facility] 3 06:52:58 00632 Ambien medicatio n Not available Not available Not available 06/11/2022 84167 5 RxNorm Not Available [facility] 3 06:52:58 Medications Name Sig Start Date Stop Date Status Note LastModified by Organization Details LastModified Time losartan 50 mg tablet 08/29 completed Not Available Not Available Not Available amoxicillin 500 mg capsule TAKE 1 CAPSULE BY MOUTH EVERY 8 HOURS 12/30 completed Not Available Not Available Not Available atorvastati n 40 mg tablet 09/28 completed Not Available Not Available Not Available primidone 50 mg tablet 08/29 completed Not Available Not Available Not Available atorvastati n 80 mg tablet TAKE 1 TABLET BY MOUTH EVERY DAY IN THE EVENING active Not Available Not Available No t Available nystatin 100,000 unit/mL oral suspension 08/29 completed Not Available Not Available Not Available doxycycline hyclate 100 mg capsule 08/29 completed Not Available Not Available Not Available tizanidine 2 mg tablet 08/29 completed Not Available Not Available Not Available albuterol sulfate 2.5 mg/3 mL (0.083 %) solution for nebulizatio n Inhale 3 mL 4 times a day by nebulizat ion route for 30 days. 2022 active Not Available Not Available Not Avai lable azithromyci n 250 mg tablet 03/20 completed Not Available Not Available Not Available fluconazole 150 mg tablet take 1 tab po on day 1 and day 3 active Not Available Not Available No t Available prednisone 20 mg tablet Take 2 tablets every day by oral route for 5 days. active Not Available Not Available No t Available propranolol ER 60 mg capsule,24 hr,extended release 08/29 completed Not Available Not Available Not Available alclometaso ne 0.05 % topical cream 10/31 completed Not Available Not Available Not Available melatonin 3 mg tablet TAKE 1 TABLET BY MOUTH EVERY DAY AT BEDTIME 02/18 completed Not Available Not Available Not Available clopidogrel 75 mg tablet TAKE 1 TABLET BY MOUTH EVERY DAY WITH A MEAL active Not Available Not Available No t Available ciprofloxac in 500 mg tablet TAKE 1 TABLET BY MOUTH EVERY 12 HOURS active Not Available Not Available No t Available omeprazole 40 mg capsule,del ayed release 09/28 completed Not Available Not Available Not Available amitriptyli ne 50 mg tablet 08/29 completed Not Available Not Available Not Available triamcinolo ne acetonide 0.1 % topical cream 08/29 completed Not Available Not Available Not Available pramipexole 0.5 mg tablet TAKE 1 TABLET BY MOUTH THREE TIMES A DAY active Not Available Not Available No t Available cyproheptad ine 4 mg tablet TAKE 1 TABLET BY MOUTH EVERY 6 TO 8 HOURS NEEDED active Not Available Not Available No t Available oxycodone-a cetaminophe n 5 mg-325 mg tablet 1 TABLET ORALLY EVERY 4 HOURS NEEDED FOR PAIN (SCALE SCORE 7-10) FOR 30 DAYS 03/04 completed Not Available Not Available Not Available alprazolam 0.25 mg tablet 06/18 completed Not Available Not Available Not Available citalopram 20 mg tablet Take 1 tablet every day by oral route. active Not Available Not Available No t Available amitriptyli ne 25 mg tablet TAKE 1 TABLET BY MOUTH EVERYDAY AT BEDTIME active Not Available Not Available No t Available oxycodone-a cetaminophe n 10 mg-325 mg tablet 09/28 completed Not Available Not Available Not Available temazepam 30 mg capsule TAKE 1 CAPSULE EVERY NIGHT AT BEDTIME 08/29 completed Not Available Not Available Not Available baclofen 10 mg tablet 08/29 completed Not Available Not Available Not Available pantoprazol e 40 mg tablet,vicky yed release TAKE 1 TABLET BY MOUTH EVERY DAY active Not Available Not Available No t Available ferrous sulfate 325 mg (65 mg iron) tablet TAKE 1 TABLET BY MOUTH EVERY DAY 2022 active Not Available Not Available Not Avai lable betamethaso ne, augmented 0.05 % topical ointment 08/29 completed Not Available Not Available Not Available budesonide 0.5 mg/2 mL suspension for nebulizatio n USE ONE VIAL TWICE DAILY 08/29 completed Not Available Not Available Not Available mupirocin 2 % topical ointment APPLY TOPICALLY 3 TIMES A DAY active Not Available Not Available No t Available furosemide 20 mg tablet TAKE 1 TABLET BY MOUTH EVERY DAY active Not Available Not Available No t Available gabapentin 100 mg capsule 12/02 completed Not Available Not Available Not Available nystatin 100,000 unit/gram topical powder APPLY 1 TOPICAL APPLICATI ON EVERY 12 HOURS active Not Available Not Available No t Available cefuroxime axetil 500 mg tablet Take 1 tablet every 12 hours by oral route. active Not Available Not Available No t Available levofloxaci n 500 mg tablet 08/29 completed Not Available Not Available Not Available oxycodone-a cetaminophe n 7.5 mg-325 mg tablet TAKE 1 TABLET BY MOUTH EVERY 6 HOURS FOR 30 DAYS active Not Available Not Available No t Available albuterol sulfate HFA 90 mcg/actuati on aerosol inhaler Inhale 2 puffs every 4 hours by inhalatio n route for 30 days. active Not Available Not Available No t Available propranolol 20 mg tablet TAKE ONE TABLET BY MOUTH TWICE DAILY 05/07 completed Not Available Not Available Not Available cefdinir 300 mg capsule 06/17 completed Not Available Not Available Not Available doxycycline hyclate 100 mg tablet 12/02 completed Not Available Not Available Not Available loratadine 10 mg tablet TAKE ONE TABLET DAILY 08/29 completed Not Available Not Available Not Available ipratropium bromide 0.02 % solution for inhalation USE ONE VIAL IN NEBULIZER 3 TIMES DAILY 08/29 completed Not Available Not Available Not Available amoxicillin 875 mg-potassiu m clavulanate 125 mg tablet TAKE 1 TABLET BY MOUTH TWICE A DAY FOR 7 DAYS FOR UTI active Not Available Not Available No t Available hydrocortis one 1 % topical cream with perineal applicator APPLY 1 APPLICATI ON ONTO THE AFFECTED AREA(S) ON THE SKIN EVERY 12 HOURS 02/18 completed Not Available Not Available Not Available escitalopra m 10 mg tablet TAKE 1 TABLET BY MOUTH EVERY DAY 03/11 completed Not Available Not Available Not Available memantine 5 mg tablet TAKE 1 TABLET BY MOUTH TWICE A DAY 2023 active Not Available Not Available Not Avai lable Feosol 45 mg tablet TAKE ONE TABLET TWICE DAILY 08/29 completed Not Available Not Available Not Available nitrofurant oin monohydrate /macrocryst als 100 mg capsule 08/29 completed Not Available Not Available Not Available lactulose 10 gram/15 mL oral solution TAKE 15ML BY MOUTH DAILY NEEDED FOR ABSENT BOWEL MOVEMENTS MORE THAN 3 DAYS active Not Available Not Available No t Available pregabalin 100 mg capsule TAKE 1 CAPSULE BY MOUTH THREE TIMES A DAY FOR 30 DAYS active Not Available Not Available No t Available Lyrica 75 mg capsule 08/29 completed Not Available Not Available Not Available aripiprazol e 2 mg tablet 08/29 completed Not Available Not Available Not Available Combivent Respimat 20 mcg-100 mcg/actuati on solution for inhalation 08/04 completed Not Available Not Available Not Available Trelegy Ellipta 100 mcg-62.5 mcg-25 mcg powder for inhalation Inhale 1 puff every day by inhalatio n route as directed for 30 days. active Not Available Not Available No t Available Fluzone High-Dose (PF) 180 mcg/0.5 mL intramuscul ar syringe ADM 0.5ML IM UTD 08/29 completed Not Available Not Available Not Available Vitals Date Recorded Body height Body temperature Body mass index (BMI) Body weight Respiratory rate Heart rate Systolic blood pressure Diastolic blood pressure Provider Name and Address Organization Details Last Updated DateTime 3 139.7 cm 97.6 [degF] 34.2 kg/m2 23414.0 8 g 20 /min 87 /min 140 mm[Hg] 80 mm[Hg] GEOVANI Perez [facility] 3 14:15:39 Date Recorded Body height Body mass index (BMI) Body weight Body temperature Heart rate Systolic blood pressure Diastolic blood pressure Provider Name and Address Organization Details Last Updated DateTime 3 139.7 cm 34.2 kg/m2 36294.0 8 g 97.6 [degF] 87 /min 134 mm[Hg] 76 mm[Hg] Joanne Hurd [facility] 3 14:54:03 Date Recorded Body height Body temperature Body weight Heart rate Oxygen saturation Oxygen saturation in Arterial blood by Pulse oximetry Inhaled oxygen flow rate Systolic blood pressure Diastolic blood pressure Provider Name and Address Organization Details Last Updated DateTime 3 139.7 cm 98.1 [degF] 67979.3 8 g 68 /min 96 % 96 % 3 L/min 126 mm[Hg] 70 mm[Hg] Inez Ogden RN [facility] 3 15:00:02 Date Recorded Body mass index (BMI) Provider Name and Address Organization Details Last Updated DateTime 12/30/2022 31.1 kg/m2 CIARAN Dickerson [address] [facility], [facility] [address], [place], [address], [facility] 01/10/2023 23:08:08 Date Recorded Body height Body weight Body temperature Heart rate Oxygen saturation Oxygen saturation in Arterial blood by Pulse oximetry Inhaled oxygen flow rate Systolic blood pressure Diastolic blood pressure Provider Name and Address Organization Details Last Updated DateTime 3 139.7 cm 99957.1 9 g 97.2 [degF] 64 /min 96 % 96 % 3 L/min 110 mm[Hg] 70 mm[Hg] Inez Ogden RN [facility] 3 15:38:25 Date Recorded Body mass index (BMI) Provider Name and Address Organization Details Last Updated DateTime 01/23/2023 30.7 kg/m2 CIARAN Dickerson [address], [facility] [address], [place], [address], [facility] 01/23/2023 15:43:45 Date Recorded Body height Body temperature Heart rate Respiratory rate Oxygen saturation Oxygen saturation in Arterial blood by Pulse oximetry Inhaled oxygen flow rate Systolic blood pressure Diastolic blood pressure Provider Name and Address Organization Details Last Updated DateTime 3 139.7 cm 97.5 [degF] 94 /min 16 /min 96 % 96 % 3 L/min 128 mm[Hg] 78 mm[Hg] Janette [place] Neil [facility] 12:32:46 Date Recorded Body height Body temperature Body mass index (BMI) Body weight Respiratory rate Heart rate Oxygen saturation Oxygen saturation in Arterial blood by Pulse oximetry Inhaled oxygen flow rate Systolic blood pressure Diastolic blood pressure Provider Name and Address Organization Details Last Updated DateTime 3 139.7 cm 97.7 [degF] 31.4 kg/m2 33759.9 7 g 20 /min 111 /min 86 % 86 % 3 L/min 130 mm[Hg] 72 mm[Hg] Janette [place] Neil [facility] 3 12:34:21 Date Recorded Oxygen saturation Oxygen saturation in Arterial blood by Pulse oximetry Inhaled oxygen flow rate Provider Name and Address Organization Details Last Updated DateTime 03/11/2023 96 % 96 % 3 L/min CIARAN Dickerson [address], [facility] [address], [place], [address], [facility] 03/11/2023 13:05:03 Social History Question Answer Notes LastModified by Organizat ion Details LastModified Time Tobacco Smoking Status Former Smoker Not Available [facility] 06/11/2022 06:39:23 What Is Your Level Of Alcohol Consumption? None [id number] Information not available 06/11/2022 Are You Blind Or Do You Have Difficulty Seeing? Yes Glasses [email or web address] Information not available 12/30/2022 What Is Your Level Of Caffeine Consumption? Heavy [id number] Information not available 06/11/2022 How Much Tobacco Do You Chew? None MIGRATION.04325 19916 Information not available 06/11/2022 In The 14 Days Before Symptom Onset, Have You Had Close Contact With A Laboratory-confir med COVID-19 While That Case Was Ill? No MIGRATION.51796 62378 Information not available 06/11/2022 In The 14 Days Before Symptom Onset, Have You Had Close Contact With A Person Who Is Under Investigation For COVID-19 While That Person Was Ill? No MIGRATION.94363 05265 Information not available 06/11/2022 Are You Currently Employed? No [email or web address] Information not available 06/17/2022 Are You Deaf Or Do You Have Serious Difficulty Hearing? Yes Hearing Aids [email or web address] Information not available 12/30/2022 What Type Of Diet Are You Following? REGULAR MIGRATION.75512 38031 Information not available 06/11/2022 Which Illicit Or Recreational Drugs Have You Used? None MIGRATION.99098 21838 Information not available 06/11/2022 Do You Or Have You Ever Used E-cigarettes Or Vape? Never Used Electronic Cigarettes MIGRATION.88780 67726 Information not available 06/11/2022 What Is Your Occupation? Retired MIGRATION.74497 91152 Information not available 06/11/2022 Have There Been Any Changes To Your Family Or Social Situation? No MIGRATION.68878 44804 Information not available 06/11/2022 When Did You Quit Smoking? 1-5yearssince lastcigarette [email or web address] Information not available 06/18/2022 Do You Use Insect Repellent Routinely? No MIGRATION.84436 07086 Information not available 06/11/2022 Presence Of Domestic Violence No [email or web address] Information no t available 12/30/2022 Are You Able To Care For Yourself? No [email or web address] Information not available 12/30/2022 Are You Blind Or Do Yo Have Difficulty Seeing? Yes Glasses [email or web address] Information not available 12/30/2022 Are You Deaf Or Do You Have Serious Difficulty Hearing? No [email or web address] Information not available 12/30/2022 General Stress Level? Moderate [email or web address] Information not available 12/30/2022 Live Alone Of With Others? Alone [email or web address] Information not available 12/30/2022 Do You Have Any Pets? Yes [email or web address] Information not available 06/18/2022 What Is Your Relationship Status? MIGRATION.40377 86908 Information not available 06/11/2022 Do You Use Your Seat Belt Or Car Seat Routinely? Yes MIGRATION.42798 74758 Information not available 06/11/2022 Do You Have Smoke And Carbon Monoxide Detectors In Your Home? Yes MIGRATION.89509 61565 Information not available 06/11/2022 At What Age Did You Start Smoking Tobacco? 44 MIGRATION.09984 63876 Information not available 06/11/2022 Are You Passively Exposed To Smoke? No [email or web address] Information no t available 12/30/2022 Do You Or Have You Ever Used Smokeless Tobacco? Never Used Smokeless Tobacco MIGRATION.27176 79375 Information not available 06/11/2022 Are There Any Smokers In Your House? No [email or web address] Information not available 12/30/2022 Do You Use Any Illicit Or Recreational Drugs? No MIGRATION.30043 75993 Information not available 06/11/2022 Do You Use Sunscreen Routinely? No MIGRATION.34589 71301 Information not available 06/11/2022 Have You Recently Traveled Abroad? No MIGRATION.07900 02832 Information not available 06/11/2022 Do You Have Any Dietary Restrictions? No MIGRATION.13508 88812 Information not available 06/11/2022 Do You Or Have You Ever Used Any Other Forms Of Tobacco Or Nicotine? No MIGRATION.52171 02464 Information not available 06/11/2022 Sex: Unknown Functional Status Question Answer Note LastModified by Organizat ion Details LastModified Time Do you have difficulty walking or climbing stairs? Yes [email or web address] Information not available 12/30/2022 Do you have transportation difficulties? Yes MIGRATION.3771392 026 Information not available 06/11/2022 Are you able to walk? YESLIMIT [email or web address] Information not available 12/30/2022 Do you have difficulty doing errands alone? Yes [email or web address] Information not available 12/30/2022 Are you able to care for yourself? Yes MIGRATION.9810676 026 Information not available 06/11/2022 Do you have difficulty dressing or bathing? Yes [email or web address] Information not available 12/30/2022 What is your exercise level? None MIGRATION.2557978 026 Information not available 06/11/2022 Mental Status Question Answer Note LastModified by Organization D etails LastModified Time Do you have difficulty concentrating, remembering or making decisions? No [email or web address] Information no t available 12/30/2022 Family History Relationship Description Onset Age of this Age Resolved Age Notes LastModified by Organization Details LastModified Time Mother Pulmonary emphysema MIGRATION.854 [id number] Not available 06/11/2022 06:40:04 Mother Depressive disorder 72 MIGRATION.673 [id number] Not available 06/11/2022 06:40:04 Mother Anemia MIGRATION.959 [id number] Not available 06/11/2022 06:40:04 Father Malignant neoplastic disease MIGRATION.792 0860445 Not available 06/11/2022 06:40:04 Father Chronic obstructive pulmonary disease MIGRATION.622 [id number] Not available 06/11/2022 06:40:04 Medical History Condition Response NERVE DISEASE Y LUNG DISEASE/DISORDER Y RADIATION / CHEMOTHERAPY Y HIGH CHOLESTEROL / HYPERLIPIDEMIA Y EYE PROBLEMS Y DEPRESSION (INCLUDING POST ) Y BOWEL PROBLEMS Y BACK / NECK PROBLEMS Y ULCERS Y BREAST PROBLEMS Y OBESITY Y OSTEOPOROSIS Y URINARY/BLADDER/KIDNEY PROBLEMS Y SKIN PROBLEMS Y HEARTBURN / REFLUX Y SLEEP DISORDER Y HEADACHES/MIGRAINES Y VARICOSITIES Y DIZZINESS Y HYPERTENSION Y ANXIETY DISORDER Y TUBERCULOSIS Y Gynecological History Statement/Question Response Date of Last Mammogram 09/22/2019 Date of Last Colonoscopy 09/01/2018 Obstetrics History GPAL:G 3 P 0 0 0 3 Type Value Living 3 Total 3 Immunizations Vaccine Type Date Status Note Provider Nam e and Address Organization Details Recorded Time SARS-COV-2 (COVID-19) vaccine, UNSPECIFIED 3 completed GEOVANI Perez [facility] 03/23/2023 17:51:46 influenza, unspecified formulation 3 completed GEOVANI Perez [facility] 03/23/2023 17:51:56 COVID-19, mRNA, LNP-S, PF, 30 mcg/0.3 mL dose 1 completed Not Available [facility] 06/11/2022 06:52:37 COVID-19, mRNA, LNP-S, PF, 30 mcg/0.3 mL dose completed Not Available [facility] 06/11/2022 06:52:37 Past Encounters Encounter ID Performer Location Encounter Start Date Encounter Closed Date Diagnosis/Indication Diagnosis SNOMED-CT Code Diagnosis ICD10 Code [id number] [facility] [place] [address] [facility], [facility] [address] [place] [address] 08/03/2020 00:00:00 08/04/2020 17:39:50 [id number] [facility] [place] [address] [place] [address] 08/29/2020 00:00:00 08/29/2020 17:45:23 [id number] [facility] [place] [address] [place] [address] 09/28/2020 00:00:00 09/28/2020 17:10:21 [id number] [facility] [place] [address] [place] [address] 06/19/2021 00:00:00 06/26/2021 12:14:08 [id number] [facility] [place] [address] [place] [address] 06/19/2021 00:00:00 06/19/2021 16:44:42 [id number] [facility] [place] [address] [place] [address] 08/29/2021 00:00:00 09/09/2021 20:57:41 [id number] [facility] [place] [address] [place] [address] 10/31/2021 00:00:00 11/09/2021 18:55:30 [id number] [facility] [place] [address] [place] [address] 11/25/2021 00:00:00 11/25/2021 15:32:04 [id number] [facility] [place] [address] [place] [address] 02/20/2022 00:00:00 03/12/2022 21:33:23 [id number] [facility] [place] [address] [place] [address] 03/20/2022 00:00:00 04/11/2022 09:14:05 [id number] CIARAN Dickerson [facility] [place] [address] [facility] [place] [address] 06/18/2022 14:03:25 06/18/2022 15:50:30 Minimal cognitive impairment 290607292 R41.89 Chronic ob structive pulmonary disease 14863654 J44.9 Dependence on supplemental oxygen 9174593873 07 Z99.81 Hyperlipidemia 39912790 E78.5 Gastroesop hageal reflux disease without esophagitis 247438189 K21.9 Major depr essive disorder 666006367 F32.9 Restless legs 85456038 G 25.81 Recurrent falls 45742851 2 R29.6 Long-term drug therapy 119329391 Z79.899 Iron defic iency anemia 84243690 D50.9 [id number] Darcie Matthews, [facility] [place] [address] [place] [address] 06/18/2022 14:07:38 06/19/2022 08:45:20 Chronic obstructive pulmonary disease 49326301 J44.9 Dependence on supplemental oxygen 6170748695 07 Z99.81 Dyspnea on exertion 6084 5006 R06.09 Obstructiv e sleep apnea syndrome 07582396 G47.33 Pneumonia 686290251 J18. 9 [id number] CIARAN Dickerson [facility] [place] [address] [place] [address] 12/30/2022 14:34:49 12/30/2022 15:37:54 Adult health examination 372915190 Z00.00 Screening for disorder 258488643 Z13.9 Iron defic iency anemia 81544537 D50.9 Chronic ob structive pulmonary disease 02539017 J44.9 Dependence on supplemental oxygen 3253807082 07 Z99.81 Hyperlipidemia 73878473 E78.5 Gastroesop hageal reflux disease without esophagitis 877706285 K21.9 Major depr essive disorder 862838551 F32.9 Restless legs 55437001 G 25.81 Recurrent falls 71051046 2 R29.6 Minimal co gnitive impairment 826654030 R41.89 Long-term drug therapy 888758927 Z79.439 [id number] CIARAN Dickerson [facility] [place] [address] [place] [address] 01/23/2023 15:17:57 01/23/2023 16:30:57 Tremor 33943832 R25.1 Dehydration 72802872 E86 .0 Acute urin kevin tract infection 257560614 N39.0 Anemia 300244502 D64.9 [id number] Darcie Matthews, [facility] [place] [address] [place] [address] 02/18/2023 12:24:13 02/19/2023 08:23:04 Chronic obstructive pulmonary disease 38453719 J44.9 Dependence on supplemental oxygen 7077690890 07 Z99.81 Obstructiv e sleep apnea syndrome 19999984 G47.33 Dyspnea on exertion 6084 5006 R06.09 Pneumonia 245548304 J18. 9 [id number] CIARAN Dickerson [facility] [place] [address] [place] [address] 03/11/2023 12:28:13 03/11/2023 13:03:35 Left lower zone pneumonia 573637372 J18.1 Urinary tr act infectious disease 00755735 N39.0 Health Concerns Section Related Observation LastModified by Organization Detai ls LastModified Time None Recorded Concern Status LastModified by Organization Details LastModified Time None Recorded Advance Directives Directive None Recorded Payers Encounter Date Sequence Insurance Name Policy Number Policy Grossman Covered Member ID Grossman Member ID Guarantor Name 06/18/2022 1 [place] Jazmin Bullard [id number] Jazmin A Aleah 06/18/2022 2 [place] [id number] Jazmin A Aleah [id number] Jazmin A Aleah 12/30/2022 1 [place] Jazmin A Aleah [id number] Jazmin A Aleah 12/30/2022 2 [place] [id number] Jazmin A Aleah [id number] Jazmin A Aleah 01/23/2023 1 [place] Jazmin A Aleah [id number] Jazmin A Aleah 01/23/2023 2 [place] [id number] Jazmin A Aleah [id number] Jazmin A Aleah 02/18/2023 1 [place] Jazmin A Aleah [id number] Jazmin A Aleah 02/18/2023 2 [place] [id number] Jazmin A Aleah [id number] Jazmin A Aleah 03/11/2023 1 [place] Jazmin A Aleah [id number] Jazmin A Aleah Notes Date Note Type Note Provider Name and Address Organization Details Recorded Time 023 text/ht ml Anxiety/DepressionReported bypatient.Quality:doesnt matter time of day. Severity:denies suicidal ideations; able to maintain relationships; does not interfere with activities of daily living Duration:symptoms lasting over 2 weeks Onset/Timing:still present Context:no major life stressors Modifying Factors:rx Associated Symptoms:denies homicidal ideations; no significant weight gain; no significant weight loss; no visual/auditory hallucinations; no delusions; no shortness of breath;anxietyCOPDReported bypatient.Severity:very limiting Onset/Timing:chronic Associated Symptoms:no snoring; no excessive daytime sleepiness; no arousals from sleep; no decrease in exercise capacity; no coughing up sputum; no cough; no fever; no wheezing; no weight loss; no depression;dyspnea exertional;fatigueNotes:Sees pulmonologyHyperlipidemiaReported bypatient.Duration:chronic Control:usually well controlled Current Therapy:currently taking: (atorvastatin 80mg) Compliance:compliant; compliant with diet; exercises;does not exercise(but does PT) Complications:no coronary artery disease; no peripheral artery disease; no cardiovascular diseaseReflux/GERDReported bypatient.Severity:same Duration:present 5 or more years Onset/Timing:gone now Context:non-smoker; no drug/alcohol abuse; no drug alcohol withdrawal; not related to food/drink Alleviating Factors:medication; OTC medication Aggravating Factors:worsened by food Associated Symptoms:no frequent coughing; no feeling of fullness/mass in throat; no hoarseness; no food getting stuck; no belching/burping; no vomiting; not vomiting blood; no regurgitation; no shortness of breath; no chest pain; no heartburn; no difficulty swallowing; no pain when swallowing; no bad taste; no decreased appetite; no weight loss; no black/tarry stools; no fatigue; no throat pain CIARAN Dickerson [address] [facility], [facility] [address], [place], [address], [facility] 07/08/2022 00:24:31 023 text/ht ml Ms Bullard presents today accompanied by her caregiver.Continues compliance with Trelegy Ellipta 100ALbuterol use is rareReports pneumonia x2 with hospitalizations last fall, [facility] whee[facility]Cough is rare, sometimes productive of clear mucous.No hemoptysis, chest pain.Denies fever and chills.She is using her oxygen as directed, good clinical benefit.Reports that her home concentrator and portable concentrator are both malfunctioningShe has called the [employer] but has not had either serviced yetSleeps well, does not wake at night R/T respiratory complaints.She is using a walker but continues to have some limited mobilityActivity tolerance is poorRemains non-compliant with PAP Darcie Matthews, [facility] [address] [facility], [facility] [address], [place], [address], [facility] 06/18/2022 21:27:22 023 text/ht ml Anxiety/DepressionReported bypatient.Quality:doesnt matter time of day. Severity:denies suicidal ideations; able to maintain relationships; does not interfere with activities of daily living Duration:symptoms lasting over 2 weeks Onset/Timing:still present Context:no major life stressors Modifying Factors:rx Associated Symptoms:denies homicidal ideations; no significant weight gain; no significant weight loss; no visual/auditory hallucinations; no delusions; no shortness of breath;anxietyCOPDReported bypatient.Severity:very limiting Onset/Timing:chronic Associated Symptoms:no snoring; no excessive daytime sleepiness; no arousals from sleep; no decrease in exercise capacity; no coughing up sputum; no cough; no fever; no wheezing; no weight loss; no depression;dyspnea exertional;fatigueNotes:Sees pulmonologyHyperlipidemiaReported bypatient.Duration:chronic Control:usually well controlled Current Therapy:currently taking: (atorvastatin 80mg) Compliance:compliant; compliant with diet; exercises;does not exercise(but does PT) Complications:no coronary artery disease; no peripheral artery disease; no cardiovascular diseaseReflux/GERDReported bypatient.Severity:same Duration:present 5 or more years Onset/Timing:gone now Context:non-smoker; no drug/alcohol abuse; no drug alcohol withdrawal; not related to food/drink Alleviating Factors:medication; OTC medication Aggravating Factors:worsened by food Associated Symptoms:no frequent coughing; no feeling of fullness/mass in throat; no hoarseness; no food getting stuck; no belching/burping; no vomiting; not vomiting blood; no regurgitation; no shortness of breath; no chest pain; no heartburn; no difficulty swallowing; no pain when swallowing; no bad taste; no decreased appetite; no weight loss; no black/tarry stools; no fatigue; no throat pain CIARAN Dickerson [address], [place], [address], [facility] 01/10/2023 23:12:17 023 text/ht ml pt here for c/o shakiness and weakness. says it's not new but off an on. CIARAN Dickerson [address], [place], [address], [employer] [facility] [employer] [facility] 02/11/2023 00:28:39 023 text/ht ml Ms Bullard presents today accompanied by her caregiver to follow up on COPD, oxygen dependence, hospitalization for bilateral pneumonia over the summerContinues compliance with Trelegy Ellipta 100 one puff daily, however this is difficult to afford.Albuterol use is rareDecreased wheezingCough is rare, sometimes productive of clear mucous.No hemoptysis, chest pain.Denies fever and chills.She is using her oxygen as directed, good clinical benefit.Her activity is limited - RA is a major contributorShe can not dress or bathe without dyspnea.Sleeps well, does not wake at night R/T respiratory complaints.Remains non-compliant with PAP Darcie Matthews, [employer] [address], [place], [address], [employer] [facility] 02/18/2023 14:40:36 023 text/ht ml Generic HPI TemplateReported bypatient.Notes:Pt is here for a hospital f/u from 02/19/23 for pneumonia. Records are in the room w/her. Today she is still SOB and she started coughing more yesterday. Not really productive. She is also having L hip pain that started hurting in the middle of the night last night. She says it only hurts when she is standing and has pressure on that leg. CIARAN Dickerson [address], [place], [address], [employer] [facility] [employer] 03/11/2023 15:29:18 OBGyn Episode No OBEpisode recorded.
--- OUTSIDE RECORDS SUMMARY | 2024-04-10 04:33 | XMS_ITS | Data Portability ---
Author Organization [facility] Address [address] [facility] [place] [address] Care Team Providers Care Professional Fighter Name Role Phone ALEXSANDRA DALE Primary Care Provider Unavailab le Assessment No assessment recorded. Plan of Treatment Reminders Order Date Submit Date Provider Last Modified By Organization Details Last Modified Time Details Appointments ANY 15 2024 10:00A M CIARAN Dickerson Not available Not available Not available Lab CBC w/ auto diff [address] Outpatient Registration Lab/Ekg, [address], [address], 11/02/2023 17:21:20 iron, serum [address] Outpatient Registration Lab/Ekg, [address], [address], 11/02/2023 17:21:27 BMP, serum or plasma [address] Outpatient Registration Lab/Ekg, [address], [address], 11/02/2023 13:52:52 Referral speech therapy referral 2023 024 [facility], [address], [address], 12/22/2023 10:47:44 physical therapist referral 2023 024 [facility], [address], [address], 12/22/2023 10:47:52 occupatio nal therapist referral 2023 [email or web address] [facility], 6960 [facility] [address], [address], 01/25/2024 12:17:34 Procedures None recorded. Surgeries None recorded. Imaging None recorded. Medication Orders Abilify 2 mg tablet 2023 [facility], [address] [place] [address], [address], 09/11/2023 11:43:50 mirtazapi ne 15 mg tablet 2023 [facility], [address] [place] [address], [address], 01/28/2024 15:03:25 Patient TargetsNo targets recorded. Patient InstructionsNo instructions recorded. Reason for Referral Referring Physician: Alexsandra Dale [facility], Encounter Date: 11/06/2023 Physical Therapist Referral for Chronic obstructive pulmonary disease Referring Physician: Alexsandra Dale [facility], Encounter Date: 11/06/2023 Occupational Therapist Refer ral for Chronic obstructive pulmonary disease Referring Physician: Alexsandra Dale [facility], Encounter Date: 11/06/2023 Results Created Date Observation Date Name Description Value Unit Range Abnormal Flag Note LastModifiedBy Organization Detail LastModifiedTime 08/27/1908/26/2023 US, juliane xkvng skalpana unila terveena No observ ation record ed. [address], [address], 08/28/2023 00:56:48 08/27/1908/26/2023 XR, hip + pelvi s, bilat eral No observ ation record ed. [address], [address], 08/28/2023 00:57:33 08/27/1908/26/2023 XR, humer us No observ ation record ed. [address], [place], [address], 08/28/2023 00:57:10 09/03/19 24 09/01/2023 CT, abdom en + pelvi s, w/ contr ast No observ ation record ed. [address], [place], [address], 09/10/2023 16:44:56 09/17/19 24 09/17/2023 CT, lumba r spine , w/o contr ast No observ ation record ed. [address], [place], [address], 09/24/2023 14:15:41 09/17/19 24 09/17/2023 CT, pelvi s, w/o contr ast No observ ation record ed. [address] [address], [place], [address], 09/24/2023 14:16:08 09/17/19 24 09/17/2023 CT, brain , w/o contr ast No observ ation record ed. [address], [place], [address], 09/24/2023 14:16:27 10/27/19 24 10/27/2023 XR, chest No observ ation record ed. [address], [place], [address], 11/01/2023 00:34:51 10/28/19 24 10/28/2023 US, doppl er, venou s No observ ation record ed. [address], [place], [address], 11/01/2023 00:35:24 12/05/19 24 12/05/2023 XR, chest No observ ation record ed. [address] [address], [place], [address], 12/06/2023 23:48:53 12/30/19 24 12/29/2023 CT, angio gram, chest , w/ contr ast No observ ation record ed. [address] [address], [place], [address], 12/30/2023 18:29:34 12/30/19 24 12/29/2023 XR, chest , 2 view No observ ation record ed. [address] [address], [place], [address], 12/30/2023 18:29:54 12/31/19 24 12/30/2023 XR, chest , 2 view No observ ation record ed. [address] [address], [place], [address], 12/31/2023 14:47:54 01/01/20 24 01/01/2024 kvng demarco study No observ ation record ed. [address] [address], [place], [address], 01/01/2024 12:17:01 01/03/20 24 01/03/2024 XR, chest No observ ation record ed. [address] [address], [place], [address], 01/03/2024 14:46:27 01/07/20 24 12/29/2023 , [facility] ardio gram No observ ation record ed. [facility] Not Available 2023 16:41:34 01/14/20 24 01/14/2024 XR, chest No observ ation record ed. [address] [facility], [place], [address], 01/14/2024 17:38:31 10/10/31 2301/18/2024 XR, chest , 2 view No observ ation record ed. [facility] Scheduling [address], [place], [address], 01/26/2024 11:09:59 01/31/2001/30/2024 XR, chest No observ ation record ed. [address] [address], [place], [address], 02/01/2024 09:41:38 02/01/2002/01/2024 XR, chest , 2 view No observ ation record ed. [address] [address], [place], [address], 02/01/2024 13:29:44 02/01/2002/01/2024 CT, chest , w/ contr ast No observ ation record ed. [address] [address], [place], [address], 02/01/2024 14:22:24 02/02/2002/02/2024 XR, chest , 2 view No observ ation record ed. [address] [address], [place], [address], 02/02/2024 13:53:52 02/04/2002/04/2024 XR, chest , 2 view No observ ation record ed. [address] [address], [place], [address], 02/04/2024 23:23:39 02/07/2002/06/2024 XR, chest No observ ation record ed. [address] [address], [place], [address], 02/07/2024 13:00:44 02/09/20 24 01/30/2024 , echo aredo gram No observ ation record ed. [facility] Not Available 2023 10:21:50 11/29/20 24 03/10/2024 CT, angio gram, chest , w/ contr ast No observ ation record ed. [address] [address], [place], [address], 03/11/2024 08:39:25 03/13/20 24 03/12/2024 XR, chest , 2 view No observ ation record ed. [address] [address], [place], [address], 03/13/2024 09:59:46 03/15/20 24 03/15/2024 XR, chest , 2 view No observ ation record ed. [address] [address], [place], [address], 03/15/2024 16:03:55 03/24/20 24 03/24/2024 XR, chest No observ ation record ed. [address] [address], [place], [address], 03/25/2024 13:23:04 04/03/20 24 04/03/2024 XR, chest , 2 view No observ ation record ed. [address] [address], [place], [address], 04/04/2024 08:27:42 Result Notes None recorded. Problems Name Problem SNOMED Code Status Onset Date Resolution Date Notes Provider Name and Address Organization Details Recorded Time Chronic insomnia 875975261 Active 2023 CIARAN Dickerson Attn: Judy acevedo,[address] [facility], [place], [address], [facility] 4 21:37:02 Iron deficiency anemia 19957480 Active 2023 CIARAN Dickerson Attn: Judy acevedo,[address] [facility], [place], [address], [facility] 4 21:37:03 Chronic obstructive pulmonary disease 15813345 Active 2023 CIARAN Dickerson Attn: Accountin g,[address] [facility], [place], [address], [place] [facility] 4 21:42:51 Major depressive disorder 714974513 Active 2023 CIARAN Dickerson Attn: Accountin g,[address] [facility], [place], [address], [place] [facility] 4 21:42:54 Dependence on supplementa l oxygen 948501328467 Active 2023 CIARAN Dickerson Attn: Accountin g,[address] [facility], [place], [address], [place] [facility] 4 21:44:50 Severe chronic obstructive pulmonary disease 597028380 Active 2023 CIARAN Dickerson Attn: Accountin g,[address] [facility], [place], [address], [place] [facility] 4 15:10:04 Pulmonary embolism 72693014 Active 2023 CIARAN Dickerson Attn: Accountin g,[address] [facility], [place], [address], [place] [facility] 4 15:10:05 Benign essential hypertensio n 6210459 Active 2023 CIARAN Dickerson Attn: Accountin g,[address] [facility], [place], [address], [place] [facility] 4 15:10:06 Long-term oxygen therapy Active 2023 CIARAN Dickerson Attn: Accountin g,[address] [facility], [place], [address], [place] [facility] 4 15:10:07 Long-term drug therapy Active 2023 CIARAN Dickerson Attn: Accountin g,[address] [facility], [place], [address], [place] [facility] 4 16:29:08 Problem Notes None recorded. Procedures Surgical History Date Name Laterality Status Provider Name and Address Organization Details Recorded Time Eye Surgery completed Norman Kenny MA [facility] 09/11/2023 11:22:34 Back Surgery completed Norman Kenny MA [facility] 09/11/2023 11:22:39 Hernia Repair completed Norman Kenny MA [facility] 09/11/2023 11:22:45 Tonsillectomy completed Norman Kenny MA [facility] 09/11/2023 11:22:49 Breast Surgery completed Norman Kenny MA [facility] 09/11/2023 11:22:56 hysterectomy completed Norman Kenny [facility] 09/11/2023 11:23:02 Imaging Results Imaging Date Name Status LastModified by Organization Details LastModified Time 08/26/2023 US, duplex, venous, extremity, unilateral completed [address], [address], 08/28/2023 00:56:48 08/26/2023 XR, hip + pelvis, bilateral completed [address], [address], 08/28/2023 00:57:33 08/26/2023 XR, humerus completed [address], [address], 08/28/2023 00:57:10 09/01/2023 CT, abdomen + pelvis, w/ contrast completed [address], [address], 09/10/2023 16:44:56 09/17/2023 CT, lumbar spine, w/o contrast completed [address], [address], 09/24/2023 14:15:41 09/17/2023 CT, pelvis, w/o contrast completed [address] [address], [place], [address], 09/24/2023 14:16:08 09/17/2023 CT, brain, w/o contrast completed [address] [address], [place], [address], 09/24/2023 14:16:27 10/27/2023 XR, chest completed [address] [address], [place], [address], 11/01/2023 00:34:51 10/28/2023 US, doppler, venous completed [address] [address], [place], [address], 11/01/2023 00:35:24 12/05/2023 XR, chest completed [address] [address], [place], [address], 12/06/2023 23:48:53 12/29/2023 CT, angiogram, chest, w/ contrast completed [address] [address], [place], [address], 12/30/2023 18:29:34 12/29/2023 XR, chest, 2 view completed [address] [address], [place], [address], 12/30/2023 18:29:54 12/30/2023 XR, chest, 2 view completed [address] [address], [place], [address], 12/31/2023 14:47:54 01/01/2024 barium swallow study completed [address], [address], 01/01/2024 12:17:01 01/03/2024 XR, chest completed [address] [place], [address], 01/03/2024 14:46:27 12/29/2023 US, echocardiogram completed [facility] Inform ation not available 01/07/2024 16:41:34 01/14/2024 XR, chest completed [address] [place], [address], 01/14/2024 17:38:31 01/18/2024 XR, chest, 2 view completed [address] Scheduling [address] [facility], [place], [address], 01/26/2024 11:09:59 01/30/2024 XR, chest completed [address], [address], 02/01/2024 09:41:38 02/01/2024 XR, chest, 2 view completed [address], [address], 02/01/2024 13:29:44 02/01/2024 CT, chest, w/ contrast completed [address], [address], 02/01/2024 14:22:24 02/02/2024 XR, chest, 2 view completed [address], [address], 02/02/2024 13:53:52 02/04/2024 XR, chest, 2 view completed [address], [address], 02/04/2024 23:23:39 02/06/2024 XR, chest completed [address], [address], 02/07/2024 13:00:44 01/30/2024 US, echocardiogram completed [facility] Inform ation not available 02/09/2024 10:21:50 03/10/2024 CT, angiogram, chest, w/ contrast completed [address], [address], 03/11/2024 08:39:25 03/12/2024 XR, chest, 2 view completed [address], [address], 03/13/2024 09:59:46 03/15/2024 XR, chest, 2 view completed [address], [address], 03/15/2024 16:03:55 03/24/2024 XR, chest completed [address], [address], 03/25/2024 13:23:04 04/03/2024 XR, chest, 2 view completed [address], [address], 04/04/2024 08:27:42 Procedure Notes None recorded. Medical Equipment None [...] height Body mass index (BMI) Body weight Provider Name and Address Organization Details Last Updated DateTime 09/11/2023 149.86 cm 25.2 kg/m2 36704.05 g Norman Kenny MA [facility] 09/11/2023 11:06:18 Date Recorded Respiratory rate Oxygen saturation Oxygen saturation in Arterial blood by Pulse oximetry Inhaled oxygen flow rate Heart rate Systolic blood pressure Diastolic blood pressure Provider Name and Address Organization Details Last Updated DateTime 4 18 /min 97 % 97 % 3 L/min 93 /min 110 mm[Hg] 80 mm[Hg] CIARAN Dickerson Attn: Judy acevedo,[address] [place], [address], [facility] 4 11:32:44 Date Recorded Body height Body mass index (BMI) Body weight Respiratory rate Heart rate Oxygen saturation Oxygen saturation in Arterial blood by Pulse oximetry Inhaled oxygen flow rate Body temperature Systolic blood pressure Diastolic blood pressure Provider Name and Address Organization Details Last Updated DateTime 4 149.86 cm 27.7 kg/m2 55046.1 5 g 18 /min 79 /min 95 % 95 % 2.1 L/min 98 [degF] 110 mm[Hg] 60 mm[Hg] Layla Fitzgerald MA [facility] 4 15:10:14 Date Recorded Body height Body mass index (BMI) Body weight Oxygen saturation Oxygen saturation in Arterial blood by Pulse oximetry Inhaled oxygen flow rate Heart rate Systolic blood pressure Diastolic blood pressure Provider Name and Address Organization Details Last Updated DateTime 4 149.86 cm 29.3 kg/m2 77666.8 9 g 94 % 94 % 2 L/min 112 /min 160 mm[Hg] 92 mm[Hg] Layla Fitzgerald MA [facility] 4 14:41:23 Date Recorded Respiratory rate Systolic blood pressure Diastolic blood pressure Systolic blood pressure Diastolic blood pressure Provider Name and Address Organization Details Last Updated DateTime 4 20 /min 142 mm[Hg] 82 mm[Hg] 132 mm[Hg] 86 mm[Hg] CIARAN Dickerson Attn: Judy acevedo,[address] [facility], [place], [address], [facility] 4 15:07:48 Social History Question Answer Notes LastModified by Organizat ion Details LastModified Time Tobacco Smoking Status Never Smoker Norman Kenny MA null, [facility] 09/11/2023 11:12:08 Do You Have An Advance [...] Anxious, Or Unable To Sleep At Night)? [id number] Information not available 09/11/2023 Do You Use [...] Response Coronary Artery Disease N Other N Atrial Fibrillation N High Blood Pressure N Thyroid Problems N Kidney or Bladder Problems N GI Problems Y Depression Y COPD Y Blood Clots N Skin Problems N Anemia Y Heart Attack (VA) N Diabetes N Anxiety Disorder Y Muscle, Joint, or Bone Problems Y Seizures/Epilepsy N Acid Reflux (GERD) Y Cancer N Stroke N Asthma N Allergies Y High Cholesterol N Hepatitis N Liver Disease N Headaches Y Osteoporosis Y Heart Failure N Gynecological History Statement/Question Response Menses Monthly N Current Control Method Other Obstetrics History GPAL:G 0 P 0 0 0 0 Immunizations Vaccine Type Date Status Note Provider Nam e and Address Organization Details Recorded Time Influenza, adjuvanted, quadrivalent, PF 03/16/2023 [place], [place] [facility] 01/27/2024 14:06:56 COVID-19, mRNA, LNP-S, PF, 30 mcg/0.3 mL dose 06/09/2020 completed [place] [facility] 01/27/2024 14:06:56 COVID-19, mRNA, LNP-S, PF, 30 mcg/0.3 mL dose 07/01/2020 completed R[place] [facility] 01/27/2024 [...] Diagnosis/Indication Diagnosis SNOMED-CT Code Diagnosis ICD10 Code [id number] CIARAN Dickerson [facility] Darline Granados [address] [place] [address] 09/11/2023 10:47:56 09/11/2023 12:38:25 Chronic obstructive pulmonary disease 76097345 J44.9 Hypokalemia 77932247 E87 .6 Long-term drug therapy 910988367 Z79.899 Iron defic iency anemia 22741087 D50.9 Major depr essive disorder 395065425 F32.9 Chronic insomnia 6144838 04 F51.04 Dependence on supplemental oxygen 2187947737 07 Z99.81 [id number] CIARAN Dickerson [employer] [facility] - [place] [address] [place] [address] 11/06/2023 15:00:48 11/06/2023 16:10:49 Chronic obstructive pulmonary disease 87455695 J44.9 Obstructiv e sleep apnea syndrome 77310863 G47.33 Dependence on supplemental oxygen 0960052559 07 Z99.81 Chronic insomnia 6765303 04 F51.04 Long-term drug therapy 756378581 Z79.899 Major depr essive disorder 817101901 F32.9 [id number] CIARAN Dickerson [facility] - [place] [address] [place] [address] 01/28/2024 14:31:00 02/01/2024 14:58:58 Pulmonary embolism 63378127 I26.99 Severe chr onic obstructive pulmonary disease 994662517 J44.9 Long-term oxygen therapy 675001898 Z99.81 Benign ess ential hypertension 2179493 I10 Chronic insomnia 9333910 04 F51.04 Long-term drug therapy 936548279 Z79.899 Major depr essive disorder 680468252 F32.9 Health Concerns Section Related Observation LastModified by Organization Detai ls LastModified Time None Recorded Concern Status LastModified by Organization Details LastModified Time None Recorded Advance Directives Directive N: Payers Encounter Date Sequence Insurance Name Policy Number Policy Grossman Covered Member ID Grossman Member ID Guarantor Name 09/11/2023 1 [place] Jazmin Bullard [id number] Jazmin Bullard 09/11/2023 2 [employer] (MEDICARE SUPPLEMENT) Jazmin Bullard [id number] Jazmin Bullard 11/06/2023 1 [place] Jazmin Mattast [id number] Jazmin Aleah 11/06/2023 2 [facility] HE[employer] OPTIONS (MEDICARE SUPPLEMENT) Jazmin Mattast [id number] Jazmin Aleah 01/28/2024 1 [place] Jazmin Mattast [id number] Jazmin Aleah 01/28/2024 2 [facility] HE[employer] OPTIONS (MEDICARE SUPPLEMENT) Jazmin Jorgensenogast [id number] Jazmin Aleah Notes Date Note Type Note Provider Name and Address Organization Details Recorded Time 4 text/html Anxiety/DepressionReport ed bypatient.Notes:depressi on is primary c/o today. she doesn't feel good, doesn't want to do anything or go anywhere . she would like medication to help boost her mood. citalopram doesn't help much .COPDReported bypatient.Notes:severe copd. on chronic oxygen.InsomniaReported bypatient.Notes:chronic issue. the hospital stopped her amitriptyline but it didn't help anyways . she struggles to get to sleep at night. admits to a 2 hour nap during the day CIARAN Dickerson Attn: Accounting,[address] [facility], [place], [address], [facility] 09/11/2023 21:45:12 4 text/html Anxiety/DepressionReport ed bypatient.Notes:Mood is overall improved and stable todayCOPDReported bypatient.Notes:severe copd. on chronic oxygen. Her oxygen has been decreased to 2 L with activity and 1 L at rest and this has been very stabilizing for herInsomniaReported bypatient.Notes:chronic issue. The hospital now has a on mirtazapine that she needs a refill on today. She does feel like this was helpful CIARAN Dickerson Attn: Accounting,[address] [facility], [place], [address], [facility] 11/12/2023 00:53:02 4 text/html Anxiety/DepressionReport ed bypatient.Notes:Mood is overall [...] on anticoagulation. CIARAN Dickerson Attn: Accounting,[address] [place], [address], [facility] 02/14/2024 16:32:33 OBGyn Episode No OBEpisode recorded.
--- OUTSIDE RECORDS SUMMARY | 2024-04-10 04:34 | XMS_ITS | Clinical Summary ---
Author Organization Unknown Care Team Providers Care Outpatient Therapist Name Role Phone SIMA ARTEAGA Unavailable Unavailable RATHER RNDARRIUS Unavailable Unavailable Payers Payer Name Policy Type Policy Number Effective Date Expira tion Date MEDICARE.[facility] [id number] Problems Condition Name Condition Details Condition Category [...] 20 mg tablet 2022-04 00:00: 00 Yes [id number] FLUID RETENTION 1 tablet DAILY 1 tablet DAILY (route: oral) Med Classific ation: Cardiovas cular Therapy Agents Trelegy Ellipta 100 mcg-62.5 mcg-25 mcg powder for inhalation 2022-04 00:00: 00 Yes [id number] BREATHING 1 inhalat ion DAILY 1 inhalation DAILY (route: inhalation ) Med Classific ation: Respirato ry Therapy Agents albuterol sulfate HFA 90 mcg/actuati on aerosol inhaler 2022-04 00:00: 00 03-05 00:00 :00 No [id number] Per instruc tions Per instructio ns (route: inhalation ) Med Classific ation: Respirato ry Therapy Agents atorvastati n 80 mg tablet 2022-04 00:00: 00 03-05 00:00 :00 No [id number] Per instruc tions Per instructio ns (route: oral) Med Classific ation: Cardiovas cular Therapy Agents citalopram 20 mg tablet 2022-04 00:00: 00 Yes [id number] MOOD 1 tablet DAILY 1 tablet DAILY (route: oral) Med Classific ation: Central Nervous System Agents oxycodone-a cetaminophe n 7.5 mg-325 mg tablet 2022-04 00:00: 00 03-05 00:00 :00 No [id number] Per instruc tions EVERY 6 HOURS NEEDED Per instructio ns EVERY 6 HOURS NEEDED (route: oral) Med Classific ation: Analgesic , Anti-infl ammatory or Antipyret ic amitriptyli ne 25 mg tablet 2022-04 00:00: 00 03-05 00:00 :00 No [id number] Per instruc tions EVERYDAY AT BEDTIME Per instructio ns EVERYDAY AT BEDTIME (route: oral) Med Classific ation: Central Nervous System Agents pregabalin 100 mg capsule 2022-04 00:00: 00 Yes [id number] PAIN 1 capsule 2 TIMES DAILY 1 capsule 2 TIMES DAILY (route: oral) Med Classific ation: Central Nervous System Agents albuterol sulfate 2.5 mg/3 mL (0.083 %) solution for nebulizatio n 2022-04 00:00: 00 Yes [id number] WHEEZING 2.5 mg EVERY 8 HOURS 2.5 mg EVERY 8 HOURS (route: inhalation ) Med Classific ation: Respirato ry Therapy Agents amitriptyli ne 25 mg tablet 2022-04 00:00: 00 Yes [id number] MOOD 1 tablet BEDTIME 1 tablet BEDTIME (route: oral) Med Classific ation: Central Nervous System Agents atorvastati n 80 mg tablet 2022-04 00:00: 00 Yes [id number] CHOLESTEROL 1 tablet DAILY 1 tablet DAILY (route: oral) Med Classific ation: Cardiovas cular Therapy Agents benzonatate 100 mg capsule 2022-04 00:00: 00 Yes [id number] COUGH 1 capsule 3 TIMES DAILY 1 capsule 3 TIMES DAILY (route: oral) Med Classific ation: Respirato ry Therapy Agents clopidogrel 75 mg tablet 2022-04 00:00: 00 Yes [id number] BLOOD THINNER 1 tablet DAILY 1 tablet DAILY (route: oral) Med Classific ation: Hematolog ical Agents ferrous sulfate 325 mg (65 mg iron) tablet 2022-04 00:00: 00 Yes [id number] SUPPLEMENT 1 tablet DAILY 1 tablet DAILY (route: oral) Med Classific ation: Electroly te Balance-N utritiona l Products ipratropium bromide 0.02 % solution for inhalation 2022-04 00:00: 00 Yes [id number] SHORTNESS OF BREATH 0.5 mg EVERY 6 HOURS 0.5 mg EVERY 6 HOURS (route: inhalation ) Med Classific ation: Respirato ry Therapy Agents Laxative (bisacodyl) 5 mg tablet 2022-04 00:00: 00 Yes [id number] CONSTIPATIO N 10 mg DAILY 10 mg DAILY (route: oral) Med Classific ation: Gastroint estinal Therapy Agents melatonin 3 mg tablet 2022-04 00:00: 00 Yes [id number] SLEEPING 1 tablet BEDTIME 1 tablet BEDTIME (route: oral) Med Classific ation: Central Nervous System Agents memantine 5 mg tablet 2022-04 00:00: 00 Yes [id number] APPETITE 1 tablet 2 TIMES DAILY 1 tablet 2 TIMES DAILY (route: oral) Med Classific ation: Cognitive Disorder Therapy Mirapex 0.5 mg tablet 2022-04 00:00: 00 Yes [id number] . 0.5 mg BEDTIME 0.5 mg BEDTIME (route: oral) Med Classific ation: Central Nervous System Agents O2 - OXYGEN 2022-04 00:00: 00 Yes [id number] DIFFICULTIE S WITH BREATHING Per instruc tions DIRECTED Per instructio ns DIRECTED (route: Oxygen) Med Classific ation: Medical Oxygen oxycodone-a cetaminophe n 5 mg-325 mg tablet 2022-04 00:00: 00 Yes [id number] PAIN 1 tablet EVERY 6 HOURS 1 tablet EVERY 6 HOURS (route: oral) Med Classific ation: Analgesic , Anti-infl ammatory or Antipyret ic pantoprazol e 40 mg tablet,vicky yed release 2022-04 00:00: 00 Yes [id number] ACID REFLUX 1 tablet DAILY 1 tablet DAILY (route: oral) Med Classific ation: Gastroint estinal Therapy Agents Vitamin D3 25 mcg (1,000 unit) capsule 2022-04 00:00: 00 Yes [id number] SUPPLEMENT 1 capsule DAILY 1 capsule DAILY (route: oral) Med Classific ation: Electroly te Balance-N utritiona l Products Cipro 500 mg tablet 05-08 00:00: 00 05-15 23:59 :00 No [id number] UTI 500 mg 2 TIMES DAILY 500 mg 2 TIMES DAILY (route: oral) Med Classific ation: Anti-Infe ctive Agents nitrofurant oin macrocrysta l 100 mg capsule 06-16 00:00: 00 Yes [id number] INFECTION 1 capsule DAILY 1 capsule DAILY [...] ADMISSION AND PRN FOR ROUTINE RN TO ASSESS/SOFTWARE REVERSE ENGINEER TO OBSERVE PATIENT, WITH NOTIFICATION TO THE [...] ADMISSION AND PRN FOR ROUTINE RN TO ASSESS/SOFTWARE REVERSE ENGINEER TO OBSERVE PATIENT, WITH NOTIFICATION TO THE [...] End Date/Time Encounter Type Admission Type Attending [facility] Department Encounter ID Discharge Date Discharge Status Discharge Condition Discharge Reason Percent Goals Met 2023-05-08 00:00:00 2023-07-02 00:00:00 Outpatient [facility] [id number] 2023-07-02 00:00:00 DISCHARGE TO HOME OR SELF CARE INDEPENDEN T WITH USE OF ASSISTIVE DEVICE HH OR [facility]- GOALS MET 88.89
== END 2024-04-04 17:30 | DRG 177 ==
LOC: ANHED 05:35 → ANHIMU 07:38
PROVIDERS: Internal Medicine; Nurse Practitioner Acute Care; Admitting Provider Internal Medicine; Emergency Provider Emergency Medicine; PCP Physician Assistant; Visit Provider Family Medicine
DX: U07.1 COVID-19 (principal); J12.82 Pneumonia due to coronavirus disease 2019; J96.21 Acute and chronic respiratory failure with hypoxia; N39.0 Urinary tract infection, site not specified; I50.32 Chronic diastolic (congestive) heart failure; J96.12 Chronic respiratory failure with hypercapnia; E78.5 Hyperlipidemia, unspecified; I48.0 Paroxysmal atrial fibrillation; K21.9 Gastro-esophageal reflux disease without esophagitis; J44.9 Chronic obstructive pulmonary disease, unspecified; K44.9 Diaphragmatic hernia without obstruction or gangrene; G89.29 Other chronic pain; G47.33 Obstructive sleep apnea (adult) (pediatric); F41.9 Anxiety disorder, unspecified; F32.A Depression, unspecified; Z79.01 Long term (current) use of anticoagulants; Z86.718 Personal history of other venous thrombosis and embolism; Z99.81 Dependence on supplemental oxygen; Z98.1 Arthrodesis status; Z87.891 Personal history of nicotine dependence
CPT/HCPCS: 36415; 36600; 71045; 80053; 81001; 82805; 83880; 84145; 85018; 85025; 85055; 85610; 85730; 87040; 87086; 87181; 87186; 87637; 87641; 94002; 94640; 96365; 96367; 99285; A9270; G0378; J0248; J0456; J0696; J1100; J2060; J2270